=== PATIENT | female | born 1945 | race Hispanic/Latino ===

== ENCOUNTER 2018-11-10 08:09 | Observation (INO) | payer MEDICARE ==
[~2018-11-10] VITALS: Ht 154.9 cm; Wt 99.8 kg
--- OUTSIDE RECORDS SUMMARY | 2018-11-10 08:13 | XMS REPORT | Summary of Care ---
Author Author [facility] Organization [facility] Address Unknown Phone Unavailable Encounter LIANE Mason(KARLEE) [phone] Date(s): 10/16/16 - 10/17/16 [facility] [address] [place] [address]- Discharge Disposition: Home or Self Care Attending Physician: Omer Pitt MD Referring Physician: Omer Pitt MD Vital Signs 1 2 3 Most recent to oldest [Reference Range]: 154.94 cm (10/15/16 10:25 AM) Height 98.1 DegF (10/17/16 12:00 PM) 98.1 DegF (10/17/16 8:00 AM) 98.1 DegF (10/17/16 4:00 AM) Temperature Oral [96.4-99.1 DegF] 97/59 mmHg (10/17/16 12:00 PM) 111/63 mmHg (10/17/16 8:00 AM) 130/72 mmHg (10/17/16 4:00 AM) Blood Pressure [90-140/60-90 mmHg] 16 BRMIN (10/17/16 12:00 PM) 18 BRMIN (10/17/16 8:00 AM) 16 BRMIN (10/17/16 4:00 AM) Respiratory Rate [14-20 BRMIN] 71 bpm (10/17/16 12:00 PM) 79 bpm (10/17/16 8:00 AM) 85 bpm (10/17/16 4:00 AM) Peripheral Pulse Rate [60-100 bpm] 99.545 kg (10/15/16 10:25 AM) Weight 41.47 m2 (10/15/16 10:25 AM) Body Mass Index Problem List Condition Effective Dates Status Health Status Informant Diabetes Resolved mellitus(Confirmed) Hypertension(Confirm Resolved ed) Allergies, Adverse Reactions, Alerts Substance Reaction Severity Status Solu-MEDROL Active Medications acetaminophen-codeine #3 1 tab, Route: PO, Drug Form: TAB, Dosing Weight 99.545, kg, Q4H, PRN Pain Score 4-6, Start date: 10/16/16 11:25:00 A&P TECHNICIAN, Duration: 30 day, Stop date: 11/15/16 11 :24:00 A&P TECHNICIAN Notes: Do not exceed 4gm/day of acetaminophen. (Same as: Tylenol with Codeine # 3) Start Date: 10/16/16 Stop Date: 10/17/16 Status: Discontinued celecoxib 200 mg, 1 cap, Route: PO, Drug form: CAP, Daily, Dosing Weight 99.545, kg, Start date: 10/17/16 9:00:00 A&P TECHNICIAN, Duration: 30 day, Stop date: 11/15/16 9:00:00 A&P TECHNICIAN Notes: NSAID. Please check indication. Not for seizure. (Same As: CeleBREX) Start Date: 10/17/16 Stop Date: 10/17/16 Status: Discontinued celecoxib 200 mg oral capsule 200 mg=1 cap, PO, Daily, # 30 cap, 0 Refill(s) Start Date: 10/15/16 Status: Ordered Dextrose 50% Syringe 12.5 gm, 25 mL, Route: IVP, Drug Form: INJ, Dosing Weight 99.545, kg, PRN, PRN B lood Glucose Results, Start date: 10/16/16 13:15:00 A&P TECHNICIAN, Duration: 30 day, Stop date: 11/15/16 13:14:00 A&P TECHNICIAN Start Date: 10/16/16 Stop Date: 10/17/16 Status: Discontinued Dextrose 50% Syringe 25 gm, 50 mL, Route: IVP, Drug Form: INJ, Dosing Weight 99.545, kg, PRN, PRN Blo od Glucose Results, Start date: 10/16/16 13:15:00 A&P TECHNICIAN, Duration: 30 day, Stop da te: 11/15/16 13:14:00 A&P TECHNICIAN Start Date: 10/16/16 Stop Date: 10/17/16 Status: Discontinued Eliquis 5 mg oral tablet 5 mg=1 tab, PO, Daily, 0 Refill(s) Start Date: 10/15/16 Status: Ordered esomeprazole 40 mg, Route: PO, Drug form: ECCAP, Daily, Dosing Weight 99.545, kg, Start date: 10/17/16 9:00:00 A&P TECHNICIAN, Duration: 30 day, Stop date: 11/15/16 9:00:00 A&P TECHNICIAN Start Date: 10/17/16 Stop Date: 10/16/16 Status: Deleted esomeprazole 40 mg oral delayed release capsule 40 mg=1 cap, PO, Daily, # 30 cap, 0 Refill(s) Start Date: 10/15/16 Status: Ordered glipiZIDE 5 mg oral tablet 5 mg, 1 tab, Route: PO, Drug form: TAB, BID-Before Meals, Dosing Weight 99.545, kg, Start date: 10/16/16 16:30:00 A&P TECHNICIAN, Duration: 30 day, Stop date: 11/15/16 7:3 0:00 A&P TECHNICIAN Notes: (Same as: Glucotrol) 30 min before meals. Start Date: 10/16/16 Stop Date: 10/17/16 Status: Discontinued glipiZIDE 5 mg oral tablet 5 mg=1 tab, PO, BID-Before Meals, # 30 tab, 1 Refill(s) Start Date: 10/15/16 Status: Ordered glucagon 1 mg, Route: IM, Drug form: PDR/INJ, PRN, Dosing Weight 99.545, kg, PRN Blood Gl ucose Results, Start date: 10/16/16 13:15:00 A&P TECHNICIAN, Duration: 30 day, Stop date: 0 11/15/16 13:14:00 A&P TECHNICIAN Start Date: 10/16/16 Stop Date: 10/17/16 Status: Discontinued hydrochlorothiazide-triamterene 25 mg-37.5 mg oral capsule 1 cap, PO, Daily, # 30 cap, 0 Refill(s) Start Date: 10/15/16 Status: Ordered hydrochlorothiazide-triamterene 25 mg-37.5 mg oral tablet 1 tab, Route: PO, Drug Form: TAB, Dosing Weight 99.545, kg, Daily, Start date: 9:00:00 A&P TECHNICIAN, Duration: 30 day, Stop date: 11/15/16 9:00:00 A&P TECHNICIAN Notes: (triamterene-hydrochlorothiazide 37.5-25 mg TAB)(Same As: Maxzide-25) Start Date: 10/17/16 Stop Date: 10/17/16 Status: Discontinued influenza virus vaccine, inactivated 0.5 mL, Route: IM, Drug Form: SUSP, Daily, Start date: 10/16/16 16:30:00 A&P TECHNICIAN, Du ration: 1 doses or times, Stop date: 10/16/16 16:30:00 A&P TECHNICIAN Notes: (Same as: Fluzone Quadrivalent, Fluarix Quadrivalent)For 3 years of age a nd older (0.5 mL IM)Shake well before use Start Date: 10/16/16 Stop Date: 10/16/16 Status: Completed insulin aspart 3 unit, 0.03 mL, Route: SUB-Q, Drug form: SOLN, TID-Before Meals, Dosing Weight 99.545, kg, PRN Blood Glucose Results, Start date: 10/16/16 13:15:00 A&P TECHNICIAN, Durati on: 30 day, Stop date: 11/15/16 13:14:00 A&P TECHNICIAN Notes: Roll in palms of hands gently; Do not shake vigorously. (Same as: Abdelrahman Elizabeth)"single patient use only"WASTE: F/P - Black; E - Municipal Trash Bin Stable f or 28 days at room temperature.Expires in days from Date Start Date: 10/16/16 Stop Date: 10/17/16 Status: Discontinued insulin aspart 2 unit, 0.02 mL, Route: SUB-Q, Drug form: SOLN, TID-Before Meals, Dosing Weight 99.545, kg, PRN Blood Glucose Results, Start date: 10/16/16 13:15:00 A&P TECHNICIAN, Durati on: 30 , Stop date: 11/15/16 13:14:00 A&P TECHNICIAN Notes: Roll in palms of hands gently; Do not shake vigorously. (Same as: NovoKUSUM Elizabeth)"single patient use only"WASTE: F/P - Black; E - Municipal Trash Bin Stable f or 28 days at room temperature.Expires in days from Date Start Date: 10/16/16 Stop Date: 10/17/16 Status: Discontinued insulin aspart 1 unit, 0.01 mL, Route: SUB-Q, Drug form: SOLN, TID-Before Meals, Dosing Weight 99.545, kg, PRN Blood Glucose Results, Start date: 10/16/16 13:15:00 A&P TECHNICIAN, Durati on: 30 day, Stop date: 11/15/16 13:14:00 A&P TECHNICIAN Notes: Roll in palms of hands gently; Do not shake vigorously. (Same as: NovoKUSUM Elizabeth)"single patient use only"WASTE: F/P - Black; E - Municipal Trash Bin Stable f or 28 days at room temperature.Expires in days from Date Start Date: 10/16/16 Stop Date: 10/17/16 Status: Discontinued insulin aspart 4 unit, 0.04 mL, Route: SUB-Q, Drug form: SOLN, TID-Before Meals, Dosing Weight 99.545, kg, PRN Blood Glucose Results, Start date: 10/16/16 13:15:00 A&P TECHNICIAN, Durati on: 30 day, Stop date: 11/15/16 13:14:00 A&P TECHNICIAN Notes: Roll in palms of hands gently; Do not shake vigorously. (Same as: NovoKUSUM Elizabeth)"single patient use only"WASTE: F/P - Black; E - Municipal Trash Bin Stable f or 28 days at room temperature.Expires in days from Date Start Date: 10/16/16 Stop Date: 10/17/16 Status: Discontinued insulin aspart 5 unit, 0.05 mL, Route: SUB-Q, Drug form: SOLN, TID-Before Meals, Dosing Weight 99.545, kg, PRN Blood Glucose Results, Start date: 10/16/16 13:15:00 A&P TECHNICIAN, Durati on: 30 day, Stop date: 11/15/16 13:14:00 A&P TECHNICIAN Notes: Roll in palms of hands gently; Do not shake vigorously. (Same as: NovoKUSUM G)"single patient use only"WASTE: F/P - Black; E - Municipal Trash Bin Stable f or 28 days at room temperature.Expires in days from Date Start Date: 10/16/16 Stop Date: 10/17/16 Status: Discontinued isosorbide mononitrate 30 mg, 1 tab, Route: PO, Drug form: ERTAB, QAM, Dosing Weight 99.545, kg, Start date: 10/17/16 9:00:00 A&P TECHNICIAN, Duration: 30 day, Stop date: 11/15/16 9:00:00 A&P TECHNICIAN Notes: (Same as:Imdur)"Do Not Crush" Take on empty stomach/ full glass of water . Start Date: 10/17/16 Stop Date: 10/17/16 Status: Discontinued isosorbide mononitrate 30 mg oral tablet, extended release 30 mg=1 tab, PO, QAM, # 30 tab, 0 Refill(s) Start Date: 10/15/16 Status: Ordered levothyroxine Daily, 0 Refill(s) Start Date: 10/15/16 Status: Ordered Lyrica 50 mg, 1 cap, Route: PO, Drug form: CAP, TID, Dosing Weight 99.545, kg, Start da te: 10/16/16 13:00:00 A&P TECHNICIAN, Duration: 30 day, Stop date: 11/15/16 9:00:00 A&P TECHNICIAN Notes: Same as Lyrica Start Date: 10/16/16 Stop Date: 10/17/16 Status: Discontinued Lyrica 50 mg oral capsule 50 mg=1 cap, PO, TID, 0 Refill(s) Start Date: 10/15/16 Status: Ordered metFORMIN 500 mg oral tablet 500 mg=1 tab, PO, BID-Meals, # 30 tab, 0 Refill(s) Start Date: 10/15/16 Status: Ordered metoprolol 100 mg oral tablet, extended release 100 mg=1 tab, PO, Daily, # 30 tab, 0 Refill(s) Start Date: 10/15/16 Status: Ordered minocycline 100 mg, 2 cap, Route: PO, Drug form: CAP, Q12H, Dosing Weight 99.545, kg, Start date: 10/17/16 9:00:00 A&P TECHNICIAN, Duration: 7 day, Stop date: 10/23/16 21:00:00 A&P TECHNICIAN Notes: (Same as:Minocin) No milk/antacids/iron. Start Date: 10/17/16 Stop Date: 10/17/16 Status: Discontinued Multaq 400 mg oral tablet 400 mg=1 tab, PO, BID, # 60 tab, 0 Refill(s) Start Date: 10/15/16 Status: Ordered Protonix 40 mg, 1 tab, Route: PO, Drug form: ECTAB, Before Breakfast, Start date: 6 7:30:00 A&P TECHNICIAN, Duration: 30 day, Stop date: 11/15/16 7:30:00 A&P TECHNICIAN Notes: Tablet should not be chewed or crushed.(Same as: Protonix) Start Date: 10/17/16 Stop Date: 10/17/16 Status: Discontinued Toprol-XL 100 mg oral tablet, extended release 100 mg, 1 tab, Route: PO, Drug form: ERTAB, Daily, Start date: 10/17/16 9:00:00 A&P TECHNICIAN, Duration: 30 day, Stop date: 11/15/16 9:00:00 A&P TECHNICIAN Notes: (Same as: Toprol XL) May split tab, but do not crush. Start Date: 10/17/16 Stop Date: 10/17/16 Status: Discontinued tramadol 50 mg oral tablet 50 mg, 1 tab, Route: PO, Drug form: TAB, Q6H, Dosing Weight 99.545, kg, PRN Pain Score 7-10, Start date: 10/16/16 11:26:00 A&P TECHNICIAN, Duration: 30 day, Stop date: 11:25:00 A&P TECHNICIAN Notes: Not to exceed 400mg/day. (Same As: Ultram) Start Date: 10/16/16 Stop Date: 10/17/16 Status: Discontinued tramadol 50 mg oral tablet 50 mg=1 tab, PO, Q6H, PRN Pain, # 40 tab, 0 Refill(s) Start Date: 10/15/16 Stop Date: 10/25/16 Status: Ordered vancomycin + sodium chloride 0.9% INJ 250 mL 1,000 mg, Route: IVPB, ONCE, Dosing Weight 99.545, kg, Time Critical Medication, Start date: 10/16/16 11:25:00 A&P TECHNICIAN, Stop date: 10/16/16 11:25:00 A&P TECHNICIAN Notes: TIME CRITICAL MEDICATION(Same As: Vancocin)Infusion rate< 1000 mg: infuse over 1 [id number] - 1500 mg: infuse over 1.5 [id number] - 2000 mg: infuse over 2 hours> 2001 mg: infuse over 2.5 hours MEDICATION WASTE Product Size: 1000 mgProduct Wasted: ___ mg Start Date: 10/16/16 Stop Date: 10/16/16 Status: Completed Results ELECTROLYTES Most recent to 1 oldest [Reference Range]: Sodium Lvl [135-145 143 mEq/L mEq/L] (10/15/16 10:55 AM) Potassium Lvl 4.3 mEq/L [3.5-5.1 mEq/L] (10/15/16 10:55 AM) Chloride Lvl [95-109 111 mEq/L mEq/L] *HI* (10/15/16 10:55 AM) CO2 [24-32 mEq/L] 25 mEq/L (10/15/16 10:55 AM) AGAP [10.0-20.0 11.3 mEq/L mEq/L] (10/15/16 10:55 AM) CHEM PANEL Most recent to 1 oldest [Reference Range]: Creatinine Lvl 1.10 mg/dL [0.50-1.40 mg/dL] (10/15/16 10:55 AM) eGFR 50 mL/min/1.73m2 1 *NA* (10/15/16 10:55 AM) BUN [7-22 mg/dL] 24 mg/dL *HI* (10/15/16 10:55 AM) Glucose Lvl [70-99 162 mg/dL mg/dL] *HI* (10/15/16 10:55 AM) Calcium Lvl 9.2 mg/dL [8.5-10.5 mg/dL] (10/15/16 10:55 AM) 1Result Comment: The eGFR is calculated using the CKD-EPI formula. In most young, healthy individuals the eGFR will be >90 mL/min/1.73m2. The eGFR declines with age. An eGFR of 60-89 may be normal in some populations, particularly the elderly, for whom the CKD-EPI formula has not been extensively validated. Use of the eGFR is not recommended in the following populations: Individuals with unstable creatinine concentrations, including patients and those with serious co-morbid conditions. Patients with extremes in muscle mass or diet. The data above are obtained from the National Kidney Disease Education Program ( NKDEP) which additionally recommends that when the eGFR is used in patients with extremes of body mass index for purposes of drug dosing, the eGFR should be mul tiplied by the estimated BMI. HEMATOLOGY Most recent to 1 oldest [Reference Range]: WBC [3.7-10.4 K/CMM] 5.8 K/CMM (10/15/16 10:55 AM) RBC [4.20-5.40 4.49 M/CMM M/CMM] (10/15/16 10:55 AM) Hgb [12.0-16.0 g/dL] 14.0 g/dL (10/15/16 10:55 AM) Hct [36.0-48.0 %] 42.7 % (10/15/16 10:55 AM) MCV [80.0-98.0 fL] 95.1 fL (10/15/16 10:55 AM) MCH [27.0-31.0 pg] 31.1 pg *HI* (10/15/16 10:55 AM) MCHC [32.0-36.0 32.7 g/dL g/dL] (10/15/16 10:55 AM) RDW [11.5-14.5 %] 14.0 % (10/15/16 10:55 AM) Platelet [133-450 135 K/CMM K/CMM] (10/15/16 10:55 AM) MPV [7.4-10.4 fL] 9.9 fL (10/15/16 10:55 AM) Segs [45.0-75.0 %] 62.5 % (10/15/16 10:55 AM) Lymphocytes 22.7 % [20.0-40.0 %] (10/15/16 10:55 AM) Monocytes [2.0-12.0 10.7 % %] (10/15/16 10:55 AM) Eosinophils [0.0-4.0 3.4 % %] (10/15/16 10:55 AM) Basophils [0.0-1.0 0.7 % %] (10/15/16 10:55 AM) Segs-Bands # 3.6 K/CMM [1.5-8.1 K/CMM] (10/15/16 10:55 AM) Lymphocytes # 1.3 K/CMM [1.0-5.5 K/CMM] (10/15/16 10:55 AM) Monocytes # [0.0-0.8 0.6 K/CMM K/CMM] (10/15/16 10:55 AM) Eosinophils # 0.2 K/CMM [0.0-0.5 K/CMM] (10/15/16 10:55 AM) PT [12.0-14.7 16.1 seconds seconds] *HI* (10/15/16 10:55 AM) INR [0.85-1.17] 1.26 *HI* (10/15/16 10:55 AM) PTT [22.9-35.8 32.6 seconds seconds] (10/15/16 10:55 AM) Immunizations Given and Recorded Vaccine Date Status Refusal Reason influenza virus vaccine, inactivated 10/16/16 Given Procedures Procedure Date Related Diagnosis Body Site Appendectomy Cholecystectomy Hysterectomy Lumbar spinal fusion Social History Social History Type Response Smoking Status Never smoker; Exposure to Tobacco Smoke None; Cigarette Smoking Last 365 Days No; Reg Smoking Cessation Counseling No Assessment and Plan No data available for this section
--- OUTSIDE RECORDS SUMMARY | 2018-11-10 08:13 | XMS REPORT ---
Author Author John Bazzi Organization [employer] Address Unknown Phone Unavailable Care Team Providers Care Commercial Illustrator Name Role Phone John Bazzi CP Unavailable Encounters Encounter Location Date Refill [facility] May 03, 2014 Refills [facility] May 03, 2014 Unknown [facility] May 03, 2014 F/U FOR ECHO [facility] February 22, 2014 [facility] February 22, 2014 Refills [facility] May 01, 2014 Medications Medication Code System Code Instructions Start Date End Date Status Dosage Triamterene [facility] [address]-17 37.5 MG Orally Once a day Active 1 capsule Social History Social History Element Qualifiers Date Reported Diet: . Are you on a special diet? No February 22, 2014 Caffeine: . Do you drink caffeine? Yes, How much a day? 1 cup, What type? Soda diet coke every other day February 22, 2014 Exercise: . Do you exercise? No February 22, 2014 Smoking: . Are you a: Former smoker February 22, 2014 Alcohol: . Do you drink alcohol? No February 22, 2014 Summary Purpose [employer] Submission
--- OUTSIDE RECORDS SUMMARY | 2018-11-10 08:13 | XMS REPORT ---
Author Author John Bazzi Organization [employer] Address Unknown Phone Unavailable Care Team Providers Care Lead Cargo Mover Name Role Phone John Bazzi CP Unavailable Encounters Encounter Location Date Refill [facility] May 03, 2014 Refills [facility] May 03, 2014 Unknown [facility] May 03, 2014 F/U FOR ECHO [facility] February 22, 2014 [facility] February 22, 2014 Refills [facility] May 01, 2014 Medications Medication Code System Code Instructions Start Date End Date Status Dosage Triamterene [facility] [address]-00 37.5 MG Orally Once a day Active [...]
--- OUTSIDE RECORDS SUMMARY | 2018-11-10 08:13 | XMS REPORT ---
Author Author John Bazzi Organization [employer] Address Unknown Phone Unavailable Care Team Providers Care Test Carrier Name Role Phone John Bazzi CP Unavailable [...] Start Date End Date Status Dosage Triamterene [facility] [address]-88 37.5 MG Orally Once a day Active [...]
--- OUTSIDE RECORDS SUMMARY | 2018-11-10 08:13 | XMS REPORT ---
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 Active Assessment Dizziness and giddiness 780.4 Active Assessment Pain in soft tissues of limb 729.5 Active Medications Medication Code System Code Instructions Start Date End Date Status Dosage Metoprolol MULTUM 79881 100 MG Orally Active as directed Levothyroxine Sodium [facility] [address]-71 75 MCG Orally Once a day Active 1 tablet on an empty stomach in the morning Vitamin D (Ergocalciferol) [facility] [address]-65 15105 UNIT Orally Active 1 capsule Isosorbide Mononitrate CR [facility] [address]-06 30 MG Orally Once a day Active 1 tablet Metformin Unknown 0 500 mg Once a day Active as direct Triamterene [facility] [address]-05 37.5 MG Orally Once a day Active 1 capsule Xarelto [facility] [address]-41 20 MG Orally Once a day Active 1 tablet with food Amiodarone Unknown 0 200 mg orally twice a day Active one tab GlipiZIDE [facility] [address]-13 5 MG Orally Once a day Active 1 tablet Social History Social History Element Qualifiers Date [...] you drink alcohol? No February 22, 2014 Family history Qualifier Description Comment Date Reported Mother HTN February 22, 2014 Children son has sleep apnia February 22, 2014 Father stroke and HTN February 22, 2014 Siblings one sister has memory problems February 22, 2014 Vital Signs Date/Time: February 22, 2014 Weight 233 lbs Cardiac Monitoring Heart Rate 80 Beats per Minute Blood Pressure Diastolic 72 mm Hg Blood Pressure Systolic 128 mm Hg Summary Purpose [employer] Submission
--- OUTSIDE RECORDS SUMMARY | 2018-11-10 08:13 | XMS REPORT ---
Author Author John Bazzi Organization [employer] Address Unknown Phone Unavailable Care Team Providers Care Track Service Worker Name Role Phone John Bazzi CP Unavailable [...] Start Date End Date Status Dosage Triamterene [facility] [address]-69 37.5 MG Orally Once a day Active [...]
--- OUTSIDE RECORDS SUMMARY | 2018-11-10 08:13 | XMS REPORT ---
Author Author John Bazzi Organization [employer] Address Unknown Phone Unavailable Care Team Providers Care Delivery Driver/Supervisor Name Role Phone John Bazzi CP Unavailable Encounters Encounter Location Date Refill [facility] May 03, 2014 Refills [facility] May 03, 2014 Unknown [facility] May 03, 2014 REFILL [facility] Jun 13, 2014 F/U FOR [facility] February 22, 2014 ECHO [facility] February 22, 2014 Refills [facility] May 01, 2014 medicatins [facility] Jun 13, 2014 Medications Medication Code System Code Instructions Start Date End Date Status Dosage Metoprolol Succinate Unknown 0 100 MG Orally ONCE A DAY Jun 13, 2014 Dec 10, 2014 Active 1 TABLET Amiodarone Unknown 0 200 mg orally once a day Active 1/2 tab Triamterene-HCTZ [facility] [address]-93 37.5-25 MG Orally Once a day Jun 13, 2014 Active 1 tablet in the morning Isosorbide Mononitrate CR [facility] [address]-97 30 MG Orally Once a day Active 1 tablet Social History Social History Element Qualifiers Date Reported Diet: . Are you on a special diet? Yes, What type? diabetes Jun 13, 2014 Caffeine: . Do you drink caffeine? Yes, How much a day? 1 cup, What type? Coffee diet coke every other day Jun 13, 2014 Exercise: . Do you exercise? Yes, How often? Daily, What type of exercise? Walking Jun 13, 2014 Smoking: . Are you a: Former smoker Jun 13, 2014 Alcohol: . Do you drink alcohol? No Jun 13, 2014 Summary Purpose [employer] Submission
--- OUTSIDE RECORDS SUMMARY | 2018-11-10 08:13 | XMS REPORT ---
Author Author John Bazzi Organization [employer] Address Unknown Phone Unavailable Care Team Providers Care Balance Sheet Analyst Name Role Phone John Bazzi CP Unavailable Encounters Encounter Location Date F/U FOR ECHO [facility] February 22, 2014 ECHO [facility] February 22, 2014 Problems Problem Type Condition ICD-9 Code Onset Dates Condition Status Assessment Atrial fibrillation 427.31 Active Assessment Essential hypertension, benign 401.1 Active Assessment Congestive heart failure, unspecified 428.0 Active Assessment Dizziness and giddiness 780.4 Active Assessment Pain in soft tissues of limb 729.5 Active Social History Social History Element Qualifiers Date Reported Diet: . Are you on a special diet? Yes Nov 16, 2013 Caffeine: . Do you drink caffeine? Yes, How much a day? 1 cup or more, What type? Coffee coffee, tea and sodas Nov 16, 2013 Exercise: . Do you exercise? No Nov 16, 2013 Smoking: . Are you a: Former smoker Nov 16, 2013 Alcohol: . Do you drink alcohol? No Nov 16, 2013 Vital Signs Date/Time: Nov 16, 2013 Weight 235 lbs Cardiac Monitoring Heart Rate 72 Beats per Minute Blood Pressure Diastolic 80 mm Hg Blood Pressure Systolic 130 mm Hg Summary Purpose [employer] Submission
--- OUTSIDE RECORDS SUMMARY | 2018-11-10 08:13 | XMS REPORT | Continuity of Care Document ---
Author Author Where [facility] Interface Address Unknown Phone Unavailable Problems Problem Status Onset Date Classification Date Reported Comments Source UNK Active 10/14/2016 [facility] DIZZINESS Active 12/01/2012 [facility] Atrial fibrillation Active Diagnosis 06/22/2014 [facility] Essential hypertension, benign Active Diagnosis 06/22/2014 [facility] Congestive heart failure, unspecified Active Diagnosis 06/22/2014 [facility] Dizziness and giddiness Active Diagnosis 06/22/2014 [facility] Pain in soft tissues of limb Active Diagnosis 06/22/2014 [facility] 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 Inactive 10/17/2016 [facility] 24 HR Metoprolol Tartrate 100 MG Extended Release Tablet [Toprol] 100 mg, 1 tab, Route: PO, Drug form: ERTAB, Daily, Start date: 10/17/16 9:00:00 PASTRY COOK APPRENTICE, Duration: 30 day, Stop date: 11/15/16 9:00:00 CSTNotes: (Same as: Toprol XL) May split tab, but do not crush. Inactive 10/17/2016 [facility] Isosorbide 30 mg, 1 tab, Route: PO, Drug form: ERTAB, QAM, Dosing Weight 99.545, kg, Start date: 10/17/16 9:00:00 PASTRY COOK APPRENTICE, Duration: 30 day, Stop date: 11/15/16 9:00:00 CSTNotes: (Same as:Imdur) "Do Not Crush" Take on empty stomach/ full glass of water. Inactive 10/17/2016 [facility] Hydrochlorothiazide 25 MG / Triamterene 37.5 MG Oral Capsule 1 tab, Route: PO, Drug Form: TAB, Dosing Weight 99.545, kg, Daily, Start date: 10/17/16 9:00:00 PASTRY COOK APPRENTICE, Duration: 30 day, Stop date: 11/15/16 9:00:00 CSTNotes: (triamterene-hydrochlorothiazide 37.5-25 mg TAB) (Same As: Maxzide-25) Inactive 10/17/2016 [facility] Esomeprazole 40 mg, Route: PO, Drug form: ECCAP, Daily, Dosing Weight 99.545, kg, Start date: 10/17/16 9:00:00 PASTRY COOK APPRENTICE, Duration: 30 day, Stop date: 11/15/16 9:00:00 PASTRY COOK APPRENTICE No Longer Active 10/17/2016 [facility] celecoxib 200 mg, 1 cap, Route: PO, Drug form: CAP, Daily, Dosing Weight 99.545, kg, Start date: 10/17/16 9:00:00 PASTRY COOK APPRENTICE, Duration: 30 day, Stop date: 11/15/16 9:00:00 CSTNotes: NSAID. Please check indication. Not for seizure. (Same As: CeleBREX) Inactive 10/17/2016 [facility] Protonix 40 mg, 1 tab, Route: PO, Drug form: ECTAB, Before Breakfast, Start date: 10/17/16 7:30:00 PASTRY COOK APPRENTICE, Duration: 30 day, Stop date: 11/15/16 7:30:00 CSTNotes: Tablet should not be chewed or crushed. (Same as: Protonix) Inactive 10/17/2016 [facility] influenza virus vaccine, inactivated 0.5 mL, Route: IM, Drug Form: SUSP, Daily, Start date: 10/16/16 16:30:00 PASTRY COOK APPRENTICE, Duration: 1 doses or times, Stop date: 10/16/16 16:30:00 CSTNotes: (Same as: Fluzone Quadrivalent, Fluarix Quadrivalent) For 3 years of age and older (0.5 mL IM) Shake well before use Inactive 10/16/2016 [facility] Glipizide 5 MG Oral Tablet 5 mg, 1 tab, Route: PO, Drug form: TAB, BID-Before Meals, Dosing Weight 99.545, kg, Start date: 10/16/16 16:30:00 PASTRY COOK APPRENTICE, Duration: 30 day, Stop date: 11/15/16 7:30:00 CSTNotes: (Same as: Glucotrol) 30 min before meals. No Longer Active 10/16/2016 [facility] Glucagon 1 mg, Route: IM, Drug form: PDR/INJ, PRN, Dosing Weight 99.545, kg, PRN Blood Glucose Results, Start date: 10/16/16 13:15:00 PASTRY COOK APPRENTICE, Duration: 30 day, Stop date: 11/15/16 13:14:00 PASTRY COOK APPRENTICE No Longer Active 10/16/2016 [facility] Dextrose 50% Syringe 12.5 gm, 25 mL, Route: IVP, Drug Form: INJ, Dosing Weight 99.545, kg, PRN, PRN Blood Glucose Results, Start date: 10/16/16 13:15:00 PASTRY COOK APPRENTICE, Duration: 30 day, Stop date: 11/15/16 13:14:00 PASTRY COOK APPRENTICE No Longer Active 10/16/2016 [facility] Insulin, Aspart, Human 3 unit, 0.03 mL, Route: SUB-Q, Drug form: SOLN, TID-Before Meals, Dosing Weight 99.545, kg, PRN Blood Glucose Results, Start date: 10/16/16 13:15:00 PASTRY COOK APPRENTICE, Duration: 30 day, Stop date: 11/15/16 13:14:00 CSTNotes: Roll in palms of hands gently; Do not shake vigorously. (Same as: NovoLOG) "single patient use only" WASTE: F/P - Black; E - [employer] Trash Bin Stable for 28 days at room temperature. Expires in days from Date No Longer Active 10/16/2016 [facility] Lyrica 50 mg, 1 cap, Route: PO, Drug form: CAP, TID, Dosing Weight 99.545, kg, Start date: 10/16/16 13:00:00 PASTRY COOK APPRENTICE, Duration: 30 day, Stop date: 11/15/16 9:00:00 CSTNotes: Same as Lyrica No Longer Active 10/16/2016 [facility] tramadol hydrochloride 50 MG Oral Tablet 50 mg, 1 tab, Route: PO, Drug form: TAB, Q6H, Dosing Weight 99.545, kg, PRN Pain Score 7-10, Start date: 10/16/16 11:26:00 PASTRY COOK APPRENTICE, Duration: 30 day, Stop date: 11/15/16 11:25:00 CSTNotes: Not to exceed 400mg/day. (Same As: Ultram) No Longer Active 10/16/2016 [facility] acetaminophen-codeine #3 1 tab, Route: PO, Drug Form: TAB, Dosing Weight 99.545, kg, Q4H, PRN Pain Score 4-6, Start date: 10/16/16 11:25:00 PASTRY COOK APPRENTICE, Duration: 30 day, Stop date: 11/15/16 11:24:00 CSTNotes: Do not exceed 4gm/day of acetaminophen. (Same as: Tylenol with Codeine # 3) No Longer Active 10/16/2016 [facility] Vancomycin 1,000 mg, Route: IVPB, ONCE, Dosing Weight 99.545, kg, Time Critical Medication, Start date: 10/16/16 11:25:00 PASTRY COOK APPRENTICE, Stop date: 10/16/16 11:25:00 CSTNotes: TIME CRITICAL MEDICATION (Same As: Vancocin) I nfusion rate 2001 mg: infuse over 2.5 hours MEDICATION WASTE Product Size: 1000 mg Product Wasted: ___ mg Inactive 10/16/2016 [facility] Glipizide 5 MG Oral Tablet 5 mg=1 tab, PO, BID-Before Meals, # 30 tab, 1 Refill(s) Active 10/15/2016 [facility] apixaban 5 MG Oral Tablet [Eliquis] 5 mg=1 tab, PO, Daily, 0 Refill(s) Active 10/15/2016 [facility] metoprolol 100 mg oral tablet, extended release 100 mg=1 tab, PO, Daily, # 30 tab, 0 Refill(s) Active 10/15/2016 [facility] pregabalin 50 MG Oral Capsule [Lyrica] 50 mg=1 cap, PO, TID, 0 Refill(s) Active 10/15/2016 [facility] tramadol hydrochloride 50 MG Oral Tablet 50 mg=1 tab, PO, Q6H, PRN Pain, # 40 tab, 0 Refill(s) Active 10/15/2016 [facility] dronedarone 400 MG Oral Tablet [Multaq] 400 mg=1 tab, PO, BID, # 60 tab, 0 Refill(s) Active 10/15/2016 [facility] Esomeprazole 40 MG Enteric Coated Capsule 40 mg=1 cap, PO, Daily, # 30 cap, 0 Refill(s) Active 10/15/2016 [facility] Metformin hydrochloride 500 MG Oral Tablet 500 mg=1 tab, PO, BID-Meals, # 30 tab, 0 Refill(s) Active 10/15/2016 [facility] celecoxib 200 mg oral capsule 200 mg=1 cap, PO, Daily, # 30 cap, 0 Refill(s) Active 10/15/2016 [facility] isosorbide mononitrate 30 mg oral tablet, extended release 30 mg=1 tab, PO, QAM, # 30 tab, 0 Refill(s) Active 10/15/2016 [facility] Hydrochlorothiazide 25 MG / Triamterene 37.5 MG Oral Capsule 1 cap, PO, Daily, # 30 cap, 0 Refill(s) Active 10/15/2016 [facility] Thyroxine Daily, 0 Refill(s) Active 10/15/2016 [facility] Metoprolol Succinate 1 TABLET Orally Active 100 MG Orally ONCE A DAY [facility] 06/13/2014 [facility] Triamterene-HCTZ 1 tablet in the morning Orally Active 37.5-25 MG Orally Once a day [facility] 06/13/2014 [facility] Eliquis as directed Orally Active 5 MG Orally twice a day. 06/13/2014 [facility] Triamterene 1 capsule Orally Active 37.5 MG Orally Once a day [facility] Metoprolol as directed Orally Active 100 MG Orally [facility] Levothyroxine Sodium 1 tablet on an empty stomach in the morning Orally Active 75 MCG Orally Once a day [facility] Vitamin D (Ergocalciferol) 1 capsule Orally Active 12361 UNIT Orally [facility] Isosorbide Mononitrate CR 1 tablet Orally Active 30 MG Orally Once a day [facility] Metformin as direct NA Active 500 mg Once a day [facility] Xarelto 1 tablet with food Orally Active 20 MG Orally Once a day [facility] Amiodarone 1/2 tab orally Active 200 mg orally once a day [facility] GlipiZIDE 1 tablet Orally Active 5 MG Orally Once a day [facility] Warfarin Sodium 1 tablet Orally Active 5 MG Orally Two times a Week [facility] Ciprofloxacin 500 mg BID 7d one tab orally Active 500 mg orally every 12 hours [facility] Metoprolol as directed Orally Active 100 MG Orally [facility] Allergies, Adverse Reactions, Alerts Substance Category Reaction Severity Reaction type Status Date Reported Comments Source N.K.D.A. Adverse Reaction Info Not Available Adverse Reaction Active 06/13/2014 [facility] Solu-MEDROL Assertion Drug allergy Active [facility] Immunizations Immunization Date Given Site Status Last Updated Comments Source influenza virus vaccine, inactivated 10/16/2016 Right deltoid completed [facility] Results Order Name Results Value Reference Range Date Interpretation Comments Source Chest 2 views DX Chest 2 views DX Patient Name: AMAURY CONTE : 1945; Age: 71 years Female MR: [id number] Study: Chest 2 views DX Order Time: 10/17/2016 3:00 AM PASTRY COOK APPRENTICE CLINICAL INDICATION: Line Placement ADDITIONAL HISTORY: None COMPARISON: Chest radiograph on 10/16/2016 FINDINGS: Lines: Stable position of the left chest pacemaker. Lungs: Hyperinflated lungs. Linear scarring and/or atelectasis within the left midlung. No effusion or pneumothorax. Mediastinum: The cardiac silhouette is mildly enlarged. Midline trachea. Bones and soft tissues: Unremarkable. IMPRESSION: No acute cardiopulmonary abnormalities. SL: [id number] 10/17/2016 - - Read by: Oleg Arora MD Dictated Date/time: 10/17/16 15:00 Electronically Signed by: Oleg Arora MD 10/17/16 15:01 FINAL REPORT [facility] Chest 1view DX Chest 1view DX Patient Name: AMAURY CONTE : 1945; Age: 71 years y/o Female MR: [id number] Study: Chest 1view DX 10/16/2016 11:25 AM PASTRY COOK APPRENTICE Ordering Physician: MD Omer Zelaya MD Clinical Indication: Line Placement; Status post PPM/ICD Implantation Comparison: 09/03/2009. 1 view chest Implanted pacemaker generator left chest wall, with single lead extending to the right ventricular region. No pneumothorax or pleural effusion is appreciated. The lungs are clear. Cardiomegaly, stable from previous. No overt congestive heart failure or pulmonary edema appreciated. IMPRESSION: Status post pacemaker implant. No pneumothorax seen. No other new/acute findings. SL: [id number] 10/16/2016 - - Read by: Charles Chaves MD Dictated Date/time: 10/16/16 14:03 Electronically Signed by: Charles Chaves MD 10/16/16 14:04 FINAL REPORT [facility] CHEM PANEL eGFR 50 mL/min/1.73m2 10/15/2016 Result Comment: The eGFR is calculated using the [...] from the National Kidney Disease Education Program (NKDEP) which additionally recommends that when the eGFR is used in patients with extremes of body mass index for purposes of drug dosing, the eGFR should be multiplied by the estimated BMI. [facility] CHEM PANEL Potassium Lvl 4.3 meq/L 3.5 - 5.1 10/15/2016 [facility] CHEM PANEL Chloride Lvl 111 meq/L 95 - 109 10/15/2016 [facility] CHEM PANEL CO2 25 meq/L 24 - 32 10/15/2016 [facility] CHEM PANEL Calcium Lvl 9.2 mg/dL 8.5 - 10.5 10/15/2016 [facility] CHEM PANEL Creatinine Lvl 1.10 mg/dL 0.50 - 1.40 10/15/2016 [facility] CHEM PANEL BUN 24 mg/dL 7 - 22 10/15/2016 [facility] CHEM PANEL Sodium Lvl 143 meq/L 135 - 145 10/15/2016 [facility] CHEM PANEL Glucose Lvl 162 mg/dL 70 - 99 10/15/2016 [facility] CHEM PANEL AGAP 11.3 meq/L 10.0 - 20.0 10/15/2016 [facility] HEMATOLOGY Lymphocytes # 1.3 K/CMM 1.0 - 5.5 10/15/2016 [facility] HEMATOLOGY Segs-Bands # 3.6 K/CMM 1.5 - 8.1 10/15/2016 [facility] HEMATOLOGY Monocytes # 0.6 K/CMM 0.0 - 0.8 10/15/2016 [facility] HEMATOLOGY Basophils 0.7 % 0.0 - 1.0 10/15/2016 [facility] HEMATOLOGY Eosinophils # 0.2 K/CMM 0.0 - 0.5 10/15/2016 [facility] HEMATOLOGY Segs 62.5 % 45.0 - 75.0 10/15/2016 [facility] HEMATOLOGY Lymphocytes 22.7 % 20.0 - 40.0 10/15/2016 [facility] HEMATOLOGY Eosinophils 3.4 % 0.0 - 4.0 10/15/2016 [facility] HEMATOLOGY Monocytes 10.7 % 2.0 - 12.0 10/15/2016 [facility] HEMATOLOGY PTT 32.6 s 22.9 - 35.8 10/15/2016 [facility] HEMATOLOGY INR 1.26 0.85 - 1.17 10/15/2016 [facility] HEMATOLOGY PT 16.1 s 12.0 - 14.7 10/15/2016 [facility] HEMATOLOGY MCH 31.1 pg 27.0 - 31.0 10/15/2016 [facility] HEMATOLOGY MCV 95.1 fL 80.0 - 98.0 10/15/2016 [facility] HEMATOLOGY MCHC 32.7 g/dL 32.0 - 36.0 10/15/2016 [facility] HEMATOLOGY Hct 42.7 % 36.0 - 48.0 10/15/2016 [facility] HEMATOLOGY MPV 9.9 fL 7.4 - 10.4 10/15/2016 [facility] HEMATOLOGY Platelet 135 K/CMM 133 - 450 10/15/2016 [facility] HEMATOLOGY RDW 14.0 % 11.5 - 14.5 10/15/2016 [facility] HEMATOLOGY RBC 4.49 M/CMM 4.20 - 5.40 10/15/2016 [facility] HEMATOLOGY WBC 5.8 K/CMM 3.7 - 10.4 10/15/2016 [facility] HEMATOLOGY Hgb 14.0 g/dL 12.0 - 16.0 10/15/2016 [facility] Vital Signs Vital Sign Value Date Comments Source Respitory Rate 16 10/17/2016 [facility] Systolic (mm Hg) 97 10/17/2016 [facility] Diastolic (mm Hg) 59 10/17/2016 [facility] Heart Rate 71 10/17/2016 [facility] Temperature Oral (F) 98.1 F 10/17/2016 [facility] Systolic (mm Hg) 111 10/17/2016 [facility] Diastolic (mm Hg) 63 10/17/2016 [facility] Respitory Rate 18 10/17/2016 [facility] Temperature Oral (F) 98.1 F 10/17/2016 [facility] Heart Rate 79 10/17/2016 [facility] Respitory Rate 16 10/17/2016 [facility] Systolic (mm Hg) 130 10/17/2016 [facility] Diastolic (mm Hg) 72 10/17/2016 [facility] Heart Rate 85 10/17/2016 [facility] Temperature Oral (F) 98.1 F 10/17/2016 [facility] BMI Calculated 41.47 10/15/2016 [facility] Height 154.94 cm 10/15/2016 [facility] Weight 99.545 10/15/2016 [facility] Weight 232 06/13/2014 [facility] Heart Rate 84 06/13/2014 [facility] Diastolic (mm Hg) 62 06/13/2014 [facility] Systolic (mm Hg) 120 06/13/2014 [facility] Weight 233 02/22/2014 [facility] Heart Rate 80 02/22/2014 [facility] Diastolic (mm Hg) 72 02/22/2014 [facility] Systolic (mm Hg) 128 02/22/2014 [facility] Weight 235 11/16/2013 [facility] Heart Rate 72 11/16/2013 [facility] Diastolic (mm Hg) 80 11/16/2013 [facility] Systolic (mm Hg) 130 11/16/2013 [facility] Encounters Location Location Details Encounter Type Encounter Number Reason For Visit Attending Provider ADM Date DC Date Status Source [facility] Emergency [id number] THELMA SWAPNA 12/01/2012 12/01/2012 Active [facility] E[facility] [id number] 02/22/2014 02/22/2014 [facility] ECHO [id number] 02/22/2014 02/22/2014 [facility] ECHO [id number] 02/22/2014 02/22/2014 [facility] ECHO [id number] 02/22/2014 02/22/2014 [facility] E[facility] [id number] 02/22/2014 02/22/2014 [facility] ECHO [id number] 02/22/2014 02/22/2014 [facility] ECHO [id number] 02/22/2014 02/22/2014 [facility] ECHO [id number] 02/22/2014 02/22/2014 [facility] MCMILLAN PA F/U FOR ECHO [id number] 02/22/2014 02/22/2014 [facility] MCMILLAN PA F/U FOR ECHO [id number] 02/22/2014 02/22/2014 [facility] MCMILLAN PA F/U FOR ECHO [id number] 02/22/2014 02/22/2014 [facility] MCMILLAN PA F/U FOR ECHO [id number] 02/22/2014 02/22/2014 [facility] MCMILLAN PA F/U FOR ECHO [id number] 02/22/2014 02/22/2014 [facility] Marynhan MCMILLAN PA F/U FOR ECHO [id number] 02/22/2014 02/22/2014 [facility] MCMILLAN PA F/U FOR ECHO [id number] 02/22/2014 02/22/2014 [facility] F/U FOR ECHO [id number] 02/22/2014 02/22/2014 [facility] M[facility]ILLAN [facility] Refills [id number] 05/01/2014 05/01/2014 [facility] M[facility]ILL[facility] PA Refills [id number] 05/01/2014 05/01/2014 [facility] M[facility]ILL[facility] Refills [id number] 05/01/2014 05/01/2014 [facility] M[facility] Refills [id number] 05/01/2014 05/01/2014 [facility] M[facility] Refills [id number] 05/01/2014 05/01/2014 [facility] M[facility] Refills [id number] 05/01/2014 05/01/2014 [facility] M[facility]ILLAN [facility] Refill [id number] 05/03/2014 05/03/2014 [facility] MCMILLAN PA Refill [id number] 05/03/2014 05/03/2014 [facility] MCMILL[facility] PA Refill [id number] 05/03/2014 05/03/2014 [facility] M[facility]ILL[facility] PA Refill [id number] 05/03/2014 05/03/2014 [facility] M[facility] Refill [id number] 05/03/2014 05/03/2014 [facility] M[facility]ILL[facility] Refill [id number] 05/03/2014 05/03/2014 [facility] M[facility] Refills [id number] 05/03/2014 05/03/2014 [facility] M[facility] Refills [id number] 05/03/2014 05/03/2014 [facility] Refills [id number] 05/03/2014 05/03/2014 [facility] M[facility] Refills [id number] 05/03/2014 05/03/2014 [facility] M[facility] Refills [id number] 05/03/2014 05/03/2014 [facility] Refills [id number] 05/03/2014 05/03/2014 [facility] Unknown [id number] 05/03/2014 05/03/2014 [facility] Unknown [id number] 05/03/2014 05/03/2014 [facility] JAC[facility] Unknown [id number] 05/03/2014 05/03/2014 [facility] Unknown [id number] 05/03/2014 05/03/2014 [facility] Unknown [id number] 05/03/2014 05/03/2014 [facility] Unknown [id number] 05/03/2014 05/03/2014 [facility] JAC[facility]BSON medicatins [id number] 06/13/2014 06/13/2014 [facility] J[facility] medicatins [id number] 06/13/2014 06/13/2014 [facility] REFILL [id number] 06/13/2014 06/13/2014 [facility] REFILL [id number] 06/13/2014 06/13/2014 [facility] Bed[facility] Outpatient [id number] Omer Zelaya 10/16/2016 10/17/2016 [facility] Procedure Code Date Perfomer Comments Source Appendectomy [id number] [facility] Cholecystectomy [id number] [facility] Hysterectomy [id number] [facility] Lumbar spinal fusion [id number] [facility]
--- OUTSIDE RECORDS SUMMARY | 2018-11-10 08:13 | XMS REPORT ---
Author Author John Bazzi Organization [employer] Address Unknown Phone Unavailable Care Team Providers Care Color Technician Name Role Phone John Bazzi CP Unavailable Allergies, Adverse Reactions, Alerts Substance Reaction Event Type N.K.D.A. Info Not Available Non Drug Allergy Encounters Encounter Location Date Refill [facility] May 03, 2014 Refills [facility] May 03, 2014 Unknown [facility] May 03, 2014 REFILL [facility] Jun 13, 2014 F/U FOR ECHO [facility] February 22, 2014 ECHO [facility] February 22, 2014 Refills [facility] May 01, 2014 medicatins [facility] Jun 13, 2014 Problems Problem Type Condition ICD-9 Code [...] Instructions Start Date End Date Status Dosage Xarelto [facility] [address]-02 20 MG Orally Once a day Active 1 tablet with food GlipiZIDE [facility] [address]-41 5 MG Orally Once a day Active 1 tablet Amiodarone Unknown 0 200 mg orally once a day Active 1/2 tab Warfarin Sodium [facility] [address]-56 5 MG Orally Two times a Week Active 1 tablet Eliquis [facility] [address]-18 5 MG Orally twice a day. Jun 13, 2014 Active as directed Metformin Unknown 0 500 mg Once a day Active as direct Isosorbide Mononitrate CR [facility] [address]-28 30 MG Orally Once a day Active 1 tablet Vitamin D (Ergocalciferol) [facility] [address]-16 80720 UNIT Orally Active 1 capsule Levothyroxine Sodium [facility] [address]-09 75 MCG Orally Once a day Active 1 tablet on an empty stomach in the morning Ciprofloxacin 500 mg BID 7d Unknown 0 500 mg orally every 12 hours Active one tab Triamterene [facility] [address]-66 37.5 MG Orally Once a day Active 1 capsule Metoprolol Unknown 0 100 MG Orally Active as directed Social History Social History Element Qualifiers Date [...] you drink alcohol? No Jun 13, 2014 Vital Signs Date/Time: Jun 13, 2014 Weight 232 lbs Cardiac Monitoring Heart Rate 84 /min Blood Pressure Diastolic 62 mm Hg Blood Pressure Systolic 120 mm Hg Summary Purpose [employer] Submission
[2018-11-10] MEDS ORDERED: SODIUM CHLORIDE 0.9% 500ML 500 ML IV ONE (08:30)
[2018-11-10 08:58] LABS: INR 1.09; PARTIAL THROMBOPLASTIN TIME 35.5 seconds (23.8-35.5); PROTHROMBIN TIME 15.1 seconds (11.9-14.5)
[2018-11-10 09:08] LABS: ALBUMIN 3.2 g/dL (3.5-5.0); ANION GAP 12.1 mmol/L (8-16); CALCIUM 9.1 mg/dL (8.4-10.2); CREATININE, SERUM 0.93 mg/dL (0.57-1.11); MAGNESIUM 1.8 MG/DL (1.3-2.1); POTASSIUM 4.1 mmol/L (3.5-5.1)
--- NOTE | 2018-11-10 09:12 | Diagnostic Imaging Report ---
Examination: Single AP view of the chest. COMPARISON: None. INDICATION: Dizziness DISCUSSION: The patient is rotated to the right. Left subclavian approach implantable cardiac device body projects over the left paramediastinal region. Lead is difficult to visualize but likely projects over the right ventricle. The lungs are well-inflated and without gross consolidation, pleural effusion, or pneumothorax. Heart size is at the upper limits of normal without overt pulmonary edema. No acute osseous abnormality. IMPRESSION: Borderline cardiomegaly without vascular decompensation. Signed by: Dr. Alex Oswald M.D. on 11/10/2018 9:09 AM
[2018-11-10 09:29] LABS: THYROID STIMULATING HORMONE 1.655 uIU/mL (0.350-4.940)
--- NOTE | 2018-11-10 09:47 | Diagnostic Imaging Report ---
EXAMINATION: Head CT HISTORY: Dizziness, vertigo, ataxia COMPARISON: None. TECHNIQUE: Multidetector axial images were obtained without contrast from the foramen magnum to the vertex . The images were reconstructed using brain and bone algorithms. Thin section brain images were reformatted into coronal and sagittal planes. Image quality: Motion/streaking artifact limits the evaluation of the skull base and posterior cranial fossa. Dose modulation, iterative reconstruction, and/or weight based adjustment of the mA/kV was utilized to reduce the radiation dose to as low as reasonably achievable. FINDINGS: Parenchyma: 1. Few scattered mildly confluent periventricular and schaffer radiata white matter hypodensities, most likely nonspecific chronic microvascular ischemic changes. 2. No mass or hemorrhage. No CT evidence of acute territorial vascular insult. Extra-axial spaces:No abnormal density. No extra-axial fluid collections Brain volume: Normal for age. Ventricles: No hydrocephalus or displacement. Arteries: Prominent calcified atherosclerotic changes of the left vertebral and bilateral carotid arteries. No Hyperdense vessels at this time. Dural sinuses: No abnormal density. Extra-axial spaces: No abnormal density. Foramen magnum: No mass, Chiari malformation, or basilar invagination. Sella: No obvious mass. Paranasal/mastoid sinuses: Imaged portions unremarkable. Skull/Scalp: No lytic or blastic lesions. No fractures. IMPRESSION: 1. No acute intracranial hemorrhage or cortical infarct. 2. Mild chronic microvascular ischemic changes. Signed by: Dr. Kiki Love M.D. on 11/10/2018 9:44 AM
[2018-11-10 09:49] LABS: BASOPHILS # (AUTO) 0.1 (0.0-0.1); BASOPHILS % 1.1 % (0.0-1.0); EOSINOPHILS # (AUTO) 0.2 (0.0-0.4); EOSINOPHILS % 4.6 % (0.0-6.0); HEMOGLOBIN 13.7 g/dL (12.0-16.0); LYMPHOCYTES # (AUTO) 1.2 (1.0-3.2); LYMPHOCYTES % 27.1 % (18.0-39.1); MEAN CORPUSCULAR HEMOGLOBIN 32.9 pg (28-32); MEAN CORPUSCULAR HGB CONC 32.6 g/dL (31-35); MEAN CORPUSCULAR VOLUME 100.7 fL (81-99); MONOCYTES # (AUTO) 0.5 (0.2-0.8); MONOCYTES % 12.1 % (4.4-11.3); NEUTROPHILS # (AUTO) 2.4 (2.1-6.9); NEUTROPHILS % 54.9 % (38.7-80.0); PLATELET COUNT 122 x10e3/uL (140-360); RED BLOOD COUNT 4.17 x10e6/uL (3.6-5.1); RED CELL DISTRIBUTION WIDTH 13.6 % (11.7-14.4)
[2018-11-10] MEDS ORDERED: CEFTRIAXONE SOD 1 GM/NS 50 ML 50 ML IV SCH (10:14)
[2018-11-10] MEDS ORDERED: HYDRALAZINE HCL 20 MG/ML VIAL IV PRN (10:15)
[2018-11-10] MEDS ORDERED: ONDANSETRON HCL INJ 2MG/ML 2ML 2 MG/ML VIAL IV PRN ×2 (10:15)
[2018-11-10] MEDS ORDERED: CEFTRIAXONE SOD 1 GM VIAL IV SCH (10:15)
[2018-11-10] MEDS ORDERED: ACETAMINOPHEN 325 MG TAB PO PRN (10:15)
[2018-11-10 10:37] LABS: BILIRUBIN,URINE NEGATIVE (NEGATIVE); CLARITY,URINE CLEAR (CLEAR); COLOR,URINE YELLOW (YELLOW); KETONES,URINE NEGATIVE (NEGATIVE); LEUKOCYTE ESTERASE ,URINE NEGATIVE (NEGATIVE); NITRITE,URINE NEGATIVE (NEGATIVE); PROTEIN,URINE DIPSTICK NEGATIVE (NEGATIVE); URINE UROBILINOGEN 0.2 mg/dL (0.2 - 1)
[2018-11-10] MEDS ORDERED: ALBUTEROL/IPRATROPIUM 3 ML NEB NEB PRN (10:45)
[2018-11-10] MEDS ORDERED: BACLOFEN 10 MG TAB PO PRN (10:45)
[2018-11-10] MEDS ORDERED: PREGABALIN 50 MG CAP PO PRN (10:45)
[2018-11-10] MEDS ORDERED: TRIAMTERENE/HCTZ 37.5-25 MG TAB PO SCH (10:45)
[2018-11-10 10:51] LABS: BACTERIA,URINE RARE /HPF; EPITHELIAL CELLS,URINE FEW /LPF; WBC,URINE (MAN) 0-5 /HPF (0-5)
[2018-11-10] MEDS ORDERED: DEXTROSE 50% SYRINGE 50 ML IV PRN ×2 (11:15→11:45)
[2018-11-10] MEDS ORDERED: INSULIN LISPRO 100 UNIT/1 ML 3ML VIAL SQ SCH (11:30)
--- OUTSIDE RECORDS SUMMARY | 2018-11-10 12:10 | XMS REPORT ---
Author Author [facility] Address Unknown Phone Unavailable Care Team Providers Care Trucking Contractor Name Role Phone Carolee BONNER Unavailable Unavailable Problems This patient has no known problems. Allergies, Adverse Reactions, Alerts This patient has no known allergies or adverse reactions. Medications This patient has no known medications. Results Test Description Test Time Test Comments Text Results Atomic Results Result Comments CT BRAIN WO 2018-11-10 09:41:00 [place] [address] Patient Name: AMAURY CONTE MR #: [id number] : 1945 Age/Sex: 73/F Req #: [id number] Adm Physician: Ordered by: NEL BONNER MD Report #: [id number] Location: ER Room/Bed: Procedure: [id number] CT/CT BRAIN WO Exam Date: 11/10/18 Exam Time: 918 REPORT STATUS: Signed EXAMINATION: Head CT HISTORY: Dizziness, vertigo, ataxia COMPARISON: None. TECHNIQUE: Multidetector axial images were obtained without contrast from the foramen magnum to the vertex . The images were reconstructed using brain and bone algorithms. Thin section brain images were reformatted into coronal and sagittal planes. Image quality: Motion/streaking artifact limits the evaluation of the skull base and posterior cranial fossa. Dose modulation, iterative reconstruction, and/or weight based adjustment of the mA/kV was utilized to reduce the radiation dose to as low as reasonably achievable. FINDINGS: Parenchyma: 1. Few scattered mildly confluent periventricular and schaffer radiata white matter hypodensities, most likely nonspecific chronic microvascular ischemic changes. 2. No mass or hemorrhage. No CT evidence of acute territorial vascular insult. Extra-axial spaces:No abnormal density. No extra-axial fluid collections Brain volume: Normal for age. Ventricles: No hydrocephalus or displacement. Arteries: Prominent calcified atherosclerotic changes of the left vertebral and bilateral carotid arteries. No Hyperdense vessels at this time. Dural sinuses: No abnormal density. Extra-axial spaces: No abnormal density. Foramen magnum: No mass, Chiari malformation, or basilar invagination. Sella: No obvious mass. Paranasal/mastoid sinuses: Imaged portions unremarkable. Skull/Scalp: No lytic or blastic lesions. No fractures. IMPRESSION: 1. No acute intracranial hemorrhage or cortical infarct. 2. Mild chronic microvascular ischemic changes. Signed by: Dr. Salma Love M.D. on 11/10/2018 9:44 AM Dictated By: SALMA LOVE MD 3 Transcribed By: JUAN on 11/10/18943 COPY TO: NEL BONNER MD CHEST SINGLE (PORTABLE) 2018-11-10 09:07:00 [place] [address] Patient Name: AMAURY CONTE MR #: [id number] : 1945 Age/Sex: 73/F Req #: [id number] Adm Physician: Ordered by: NEL BONNER MD Report #: [id number] Location: ER Room/Bed: Procedure: [id number] DX/CHEST SINGLE (PORTABLE) Exam Date: 11/10/18 Exam Time: 0900 REPORT STATUS: Signed Examination: Single AP view of the chest. COMPARISON: None. INDICATION: Dizziness DISCUSSION: The patient is rotated to the right. Left subclavian approach implantable cardiac device body projects over the left paramediastinal region. Lead is difficult to visualize but likely projects over the right ventricle. The lungs are well-inflated and without gross consolidation, pleural effusion, or pneumothorax. Heart size is at the upper limits of normal without overt pulmonary edema. No acute osseous abnormality. IMPRESSION: Borderline cardiomegaly without vascular decompensation. Signed by: Dr. Luciana Braga M.D. on 11/10/2018 9:09 AM Dictated By: LUCIANA BRAGA MD 8 Transcribed By: JUAN on 11/10/18908 COPY TO: NEL BONNER MD
[2018-11-10] MEDS: FENOFIBRATE 145 MG TAB PO SCH (12:28)
[2018-11-10] MEDS: METOPROLOL SUCCINATE 50 MG TAB XL PO SCH (12:43)
[2018-11-10] MEDS: LORATADINE 10 MG TAB PO SCH (12:43)
[2018-11-10] MEDS: AMIODARONE HCL 200 MG TAB PO SCH (12:46)
[2018-11-10] MEDS: LISINOPRIL 20 MG TAB PO SCH (12:46)
[2018-11-10] MEDS: MECLIZINE HCL 12.5 MG TAB PO PRN (12:47)
[2018-11-10] MEDS: FAMOTIDINE 20 MG/2 ML VIAL IV SCH ×2 (12:47→23:29)
--- NOTE | 2018-11-10 14:37 | NUR ---
Requesting to go to BR. Yellow socks applied, assisted up to BR with standby assistance. Utilizing walker. c/o minimal dizziness upon standing.
--- NOTE | 2018-11-10 15:20 | NUR ---
Placed on to hospital bed, positioned to comfort.
--- NOTE | 2018-11-10 15:40 | NUR ---
Unable to flush Lt AC 20ga SL, iv cath removed. Cath intact, dressing to site.
[2018-11-10] MEDS: GLIPIZIDE 5 MG TAB PO SCH (16:53)
[2018-11-10] MEDS: INSULIN LISPRO 100 UNIT/1 ML 3ML VIAL SQ SCH ×2 (16:53→23:38)
--- NOTE | 2018-11-10 16:54 | NUR ---
Pt educated regarding glucose management & purpose of s/s insulin. Pt verbalizes understanding, yet continues to decline glipizide & insuling because her "sugar drops too low." Education reinforced about glucose management. Will continue to monitor.
[2018-11-10] MEDS: SALINE 0.65% NAS SOLN 1 SPRAY BTL SCH ×2 (18:30→22:00)
--- NOTE | 2018-11-10 18:30 | NUR ---
Pt sitting up in bed, awake watching tv, talking with family. Water provided. Denies any complaints at his time or needs. Will continue to monitor.
[2018-11-10] MEDS: FLUTICASONE PROPIONATE NASAL SPRAY NS SCH (18:31)
--- NOTE | 2018-11-10 19:19 | NUR ---
Report to Shine Benavidez LVN.
--- NOTE | 2018-11-10 19:30 | NUR ---
PT UP TO BEDSIDE COMMODE AT THIS TIME, TOLERATED WELL. UPDATED PT WITH PLAN OF CARE, VERBALIZED UNDERSTANDING. BED LOCKED IN LOWEST POSITION, CALL LIGHT WITHIN REACH, ENCOURAGED TO CALL FOR ASSISTANCE. PT AWAITING BED ASSISGNMENT.
[2018-11-10] MEDS ORDERED: LISINOPRIL20 MG PO (19:40)
[2018-11-10] MEDS ORDERED: ELIQUIS PO (19:40)
[2018-11-10] MEDS ORDERED: LEVOTHYROXINE88 MCG PO (19:40)
[2018-11-10] MEDS ORDERED: FENOFIBRATE160 MG PO (19:40)
[2018-11-10] MEDS ORDERED: LYRICA50 MG PO (19:40)
[2018-11-10] MEDS ORDERED: METOPROLOL SUC100 MG PO (19:40)
[2018-11-10] MEDS ORDERED: AMIODARONE HCL200 MG PO (19:40)
[2018-11-10] MEDS ORDERED: TRIAMTERENE-HC1 EAC2 PO (19:40)
--- NOTE | 2018-11-10 20:06 | History and Physical ---
PRIMARY CARE PROVIDER: Dr. Mark Bridges. CHIEF COMPLAINT: Vertigo and dizziness. HISTORY OF PRESENT ILLNESS: The patient notes some sinus congestion and pain on the right side of the face. She also has some chronic hearing loss on the left side. She notes worsening dizziness and vertigo for 3 days. She felt unsteady and was falling when she was walking. She did not note any facial paralysis. She denied any double vision. She had no trouble speaking. She came to the emergency department and received some antiplatelet therapy. She had a CT scan of the head that was negative. She received some IV fluids and she has noted some improvement. PAST MEDICAL HISTORY 1. Hypertension. 2. Diabetes. 3. Atrial fibrillation. 4. Glaucoma. 5. Chronic hearing loss in the left ear. PAST SURGICAL HISTORY 1. Status post cholecystectomy. 2. Status post pacemaker and AICD placed. FAMILY HISTORY: Significant for diabetes and hypertension. SOCIAL HISTORY: The patient is not a smoker or drinker. ALLERGIES: THE PATIENT REPORTS BEING ALLERGIC TO STEROIDS. REVIEW OF SYSTEMS: The patient has no fevers. The patient has no headache. There is some facial pain on the right side. The patient notes some nasal congestion. She also has dizziness and tinnitus. She has no neck pain. She does not complain of any chest pain. She has no difficulty breathing. She has no abdominal pain. She has no nausea or vomiting. She has no diarrhea. PHYSICAL EXAMINATION VITAL SIGNS: The patient is afebrile. The blood pressure is 123/64 and the pulse is 60. The saturation is 97%. HEENT: Examination shows no facial swelling or erythema. Nasal mucosa is edematous. NECK: Shows no JVD or thyromegaly. There is no nuchal rigidity. LYMPHATIC: Examination shows no submandibular, cervical or supraclavicular adenopathy. CARDIOVASCULAR: Reveals a regular rate and rhythm with normal S1 and S2. RESPIRATORY: Auscultation of the lungs shows clear breath sounds bilaterally. There is no wheezing. ABDOMEN: Soft, nontender. There is no rebound or guarding. EXTREMITIES: Shows no leg edema or calf tenderness. IMPRESSIONS 1. Acute labyrinthitis with vertigo and tinnitus. 2. Rhinosinusitis. 3. Ataxia. 4. Thrombocytopenia. 5. Atrial fibrillation. PLANS 1. The patient will be observed in the hospital. 2. ENT consultation. 3. The patient cannot have an MRI because of her pacemaker. 4. Nasal sprays and antibiotics. Job#: [id number] TA
--- NOTE | 2018-11-10 20:38 | NUR ---
PATIENT CARE AND REPORT CALLED TO JOESPH JOHNSON
--- NOTE | 2018-11-10 21:37 | NUR ---
patient is a new admit that arrived via stretcher. patient is awake and talking. patient has been helped into the bed. bed is in lowest position and call light is within reach. will continue to monitor patient.
[2018-11-10 21:50] VITALS: BP 132/65
[2018-11-10 22:00] VITALS: BP 130/60
[2018-11-11] VITALS (7 sets, daily range): BP systolic 101–155; BP diastolic 49–67
[2018-11-11] MEDS: SALINE 0.65% NAS SOLN 1 SPRAY BTL SCH ×5 (02:00→18:00)
[2018-11-11 03:22] LABS: BASOPHILS % 0.9 % (0.0-1.0); EOSINOPHILS # (AUTO) 0.2 (0.0-0.4); EOSINOPHILS % 4.8 % (0.0-6.0); HEMATOCRIT 40.3 % (34.2-44.1); HEMOGLOBIN 12.7 g/dL (12.0-16.0); LYMPHOCYTES # (AUTO) 1.1 (1.0-3.2); LYMPHOCYTES % 25.2 % (18.0-39.1); MEAN CORPUSCULAR HGB CONC 31.5 g/dL (31-35); MEAN CORPUSCULAR VOLUME 104.7 fL (81-99); MONOCYTES # (AUTO) 0.6 (0.2-0.8); MONOCYTES % 12.8 % (4.4-11.3); NEUTROPHILS # (AUTO) 2.4 (2.1-6.9); NEUTROPHILS % 56.1 % (38.7-80.0); PLATELET COUNT 117 x10e3/uL (140-360); RED BLOOD COUNT 3.85 x10e6/uL (3.6-5.1); RED CELL DISTRIBUTION WIDTH 13.8 % (11.7-14.4)
[2018-11-11 03:44] LABS: ALBUMIN 2.9 g/dL (3.5-5.0); ALBUMIN/GLOBULIN RATIO 0.9 (0.8-2.0); ANION GAP 11.2 mmol/L (8-16); CHOL/HDL RATIO 2.9 (3.0-3.6); POTASSIUM 4.2 mmol/L (3.5-5.1)
[2018-11-11 03:52] LABS: B-TYPE NATRIURETIC PEPTIDE2 210.1 pg/mL (0-100)
[2018-11-11 04:02] LABS: CREATINE KINASE MB 0.8 ng/mL (0-5.0)
--- NOTE | 2018-11-11 06:54 | NUR ---
report given to day nurse. patient is resting comfortably in bed. bed is in lowest position and call light is within reach.
--- NOTE | 2018-11-11 06:54 | NUR ---
Voice message left on Dr Henry Elias answering machine regarding consult. awaiting call back.
--- NOTE | 2018-11-11 06:55 | NUR ---
Handoff report rec'd from outgoing retail shift manager nurse. Pt awake at this time and able to verbalize needs. Pt denies pain in her ears at this time, but reports hard to hear out of left ear. Safety measures intact. Call light in reach.
[2018-11-11] MEDS: INSULIN LISPRO 100 UNIT/1 ML 3ML VIAL SQ SCH ×4 (07:30→20:46)
[2018-11-11] MEDS: GLIPIZIDE 5 MG TAB PO SCH ×2 (08:30→16:11)
[2018-11-11] MEDS ORDERED: APIXABAN 5 MG TABLET PO SCH (09:00)
[2018-11-11] MEDS: FLUTICASONE PROPIONATE NASAL SPRAY NS SCH ×2 (09:00→16:11)
[2018-11-11] MEDS: METOPROLOL SUCCINATE 50 MG TAB XL PO SCH (09:50)
[2018-11-11] MEDS: LISINOPRIL 20 MG TAB PO SCH (09:50)
[2018-11-11] MEDS: FENOFIBRATE 145 MG TAB PO SCH (09:50)
[2018-11-11] MEDS: AMIODARONE HCL 200 MG TAB PO SCH (09:50)
[2018-11-11] MEDS: LORATADINE 10 MG TAB PO SCH (09:50)
--- NOTE | 2018-11-11 10:01 | NUR ---
SOCIAL WORK INITIAL ASSESSMENT Podiatry Professor to bedside to discuss plan of care with patient/family. CM/SW role and care transitions discussed. Anticipated discharge plan discussed along with duration of care. CM/SW discussed patients right to make decisions in care. CM/SW work hours given. Patient lives: IN APARTMENT BY SELF Admit/Transfer: VIA ED FROM HOME POA/Emergency contact: DAUGHTER GREGORIO MITCHELL OR SON GAIL CONTE, STATES NUMBER ON FILE. Current/Previous Home Health: NO HOME HEALTH BUT HAS A PROVIDER PCP/Follow-up Care: JUAN Current/Previous DME: W[employer]ER [employer] A WHEELCHAIR Other Services: PROVIDER 6 HOURS A DAY 6 DAYS A WEEK. Employment Status: DISABLED Areas of Concerns: NONE Referral Needs: NONE Education Needs: NONE IMM/BOWSER given and signed (if applicable): BOWSER Goal for discharge: RETURN BACK TO APARTMENT INDEPENDENTLY CM/SW left business card at the bedside with contact information. Name and number was also written on the patients whiteboard. Patient verbalized understanding of discussion. CM will follow-up with ongoing discharge and transition of care needs.
--- NOTE | 2018-11-11 10:14 | Progress Note ---
DATE: Patient reports frequent urination that she believes is related to her diuretics. She has less dizziness, although she still feels somewhat unsteady on her feet. PHYSICAL EXAMINATION VITALS: The blood pressure is 116/51 and the pulse is 61. The respiratory rate is 14 and saturation is 97%. HEENT: Shows no facial swelling or erythema. CARDIAC: Reveals a regular rate and rhythm with a normal S1 and S2. There are no murmurs or rubs. LUNGS: Auscultation of lungs reveals clear breath sounds bilaterally. There is no wheezing. ABDOMEN: Soft and nontender. There is no rebound or guarding. EXTREMITIES: Shows 1+ leg edema. NEUROLOGICAL: Does shows some unsteadiness. IMPRESSION 1. Acute vertigo and ataxia. 2. Tachybrady syndrome requiring a prior pacemaker and automatic implanted cardioverter defibrillator. 3. Atrial fibrillation. 4. Rhinosinusitis. 5. Probable obstructive sleep apnea. PLAN 1. Continue physical therapy. 2. Hold diuretics. 3. ENT evaluation. Job#: [id number] [place]
[2018-11-11] MEDS: FAMOTIDINE 20 MG/2 ML VIAL IV SCH (11:15)
[2018-11-11] MEDS ORDERED: Fluticasone Propionate NS (11:52)
[2018-11-11] MEDS ORDERED: LYRICA50 MG PO (11:52)
[2018-11-11] MEDS ORDERED: Meclizine Hcl PO (11:52)
[2018-11-11] MEDS ORDERED: BACLOFEN10 MG PO (11:52)
--- NOTE | 2018-11-11 11:55 | NUR ---
Kathryn Winslow, CLIENT SERVICES SPECIALIST rounding at this time. Orders rec'd for one time dose Meclizine; When carotid dopplers completed, call CLIENT SERVICES SPECIALIST with results.
[2018-11-11] MEDS: MECLIZINE HCL 12.5 MG TAB PO PRN (12:02)
--- NOTE | 2018-11-11 16:24 | NUR ---
Placed 2nd call to Dr. Figueroa. Spoke with Dr. Figueroa regarding new consult. Addendum: 11/11/18 at 1625 by Maria A Mead RN Dr. Figueroa unaware of 1st attempt made by picking machine operator helper nurse for new consult.
--- NOTE | 2018-11-11 17:02 | NUR ---
Patient denies dizziness at this time.
--- NOTE | 2018-11-11 18:06 | NUR ---
Dr. Figueroa rounding at this time; okay to discharge per Dr. Figueroa.
--- NOTE | 2018-11-11 19:18 | NUR ---
Report received and walking rounds complete. Pt at bedside and in no apparent distress awaiting ride home. Pt has been ok'd for discharge.
--- NOTE | 2018-11-11 19:27 | NUR ---
FACTORY LABORER NURSE AWARE OF DISCHARGE ORDER.
--- NOTE | 2018-11-11 19:58 | Consultation ---
DATE OF CONSULTATION: November 11, 2018 HOSPITAL CONSULTATION HISTORY OF PRESENT ILLNESS: I was kindly asked to see this pleasant 73-year-old woman for evaluation of "vertigo." She has a complicated history of hypertension, hypothyroidism, atrial fibrillation, and diabetes mellitus and presents with a roughly 5-year history of decreased hearing in her left ear, which she reports in recent months has become worse. She has a sensation of fullness in her left ear and intermittent fullness in her right ear. She denies ear drainage; however, she does have tinnitus in her left ear over the last 3 days. She reports that over the last 2 to 3 days, she has developed a sensation of true vertigo, which she describes as spinning and the day prior to admission lasted all day. Prior to this, she has had intermittent episodes of true vertigo lasting for several minutes. In the past, she has attributed her lightheadedness to hypoglycemia, but says that she tested her blood glucose during these episodes and her glucose was normal. She also has many year history of nasal congestion, sinus drainage, and drainage down her throat. PAST MEDICAL HISTORY AND PAST SURGICAL SURGERY: Reviewed and detailed in the chart. WORKUP: Pertinent for normal carotid evaluation. CT scan showed no clinically significant abnormalities with the exception of nonspecific chronic microvascular ischemic changes. PHYSICAL EXAMINATION: The right pinna, external auditory canal, and tympanic membrane were normal. The left pinna and external auditory canal were normal. The tympanic membrane was mildly retracted and hypermobile. She had a moderate nasoseptal deviation with minimal edema at the nasal mucosa. She had no significant postnasal drainage. Her soft palate was symmetrical. On elevation, there was no palpable cervical adenopathy. She had tenderness jugular-digastric area. ASSESSMENT 1. Probable peripheral vertigo. 2. Allergic rhinitis. 3. Chronic rhinosinusitis. 4. Multiple contributing medical comorbidities. PLAN 1. No additional inpatient diagnostic workup or therapy indicated. 2. I will arrange for close followup with audiometric and vestibular evaluation. Thank you very much. Job#: [id number] [place]
--- NOTE | 2018-11-11 20:27 | NUR ---
Pt discharged. Pt signed paperwork and verbalized understanding. All belongings and discharge folder with pt. IV access removed earlier by day shift RN. Pt escorted to patient pickup area via wheelchair and taken home by daughter.
--- NOTE | 2018-11-11 20:38 | Discharge Summary ---
ADMISSION DIAGNOSES 1. Dizziness. 2. Dysuria. 3. Thrombocytopenia. 4. Elevated brain natriuretic peptide. 5. Atrial fibrillation. 6. Hypertension. 7. Hyperlipidemia. 8. Type 2 diabetes. 9. Left ear pain and hearing loss. 10. Left arm muscle spasms. 11. Morbid obesity. DISCHARGE DIAGNOSES 1. Dizziness. 2. Dysuria. 3. Thrombocytopenia. 4. Elevated brain natriuretic peptide. 5. Atrial fibrillation. 6. Hypertension. 7. Hyperlipidemia. 8. Type 2 diabetes. 9. Left ear pain and hearing loss. 10. Left arm muscle spasms. 11. Morbid obesity. 12. Rule out cerebrovascular accident. 13. Rule out urinary tract infection. HISTORY: Patient has a history of type 2 diabetes, hyperlipidemia, hypertension, atrial fibrillation, hypothyroidism and is no longer on medication, uterine cancer. SURGICAL HISTORY: Permanent pacemaker, hysterectomy, cholecystectomy, appendectomy, and back surgery. FAMILY HISTORY: Patient's mom and dad both had diabetes. Patient's dad had a stroke. SOCIAL HISTORY: Noncontributory. HOSPITAL COURSE: A 73-year-old female complains of dizziness, which was intermittent until yesterday. Now the dizziness is constant, worse with movement and improved with lying still. She denies nausea, vomiting, and syncope. She also admits to dysuria, but denies hematuria and itching. She complains of left ear pain and hearing loss over the last 4 to 6 months. She also complains of left arm weakness and muscles spasms over the last few months after moving a heavy pillow. On admission, patient had a CT of the brain, which was negative. Echo showed of 60% to 65%. EKG showed AFib 71. UA was negative. Chest x-ray showed borderline cardiomegaly without vascular decompensation. CT of the brain negative. Carotid Doppler negative. The patient was started on meclizine p.r.n. which resolved the dizziness. ENT was consulted, who saw the patient and said it was okay to discharge home. He thinks the dizziness might be related to sinus problems and she should follow up with him outpatient as she does not need to be in the hospital for those problems. The patient will discharge home with family. The patient understands discharge instructions and agrees to plan. She was given a prescription for meclizine, Flonase, and baclofen. Vital signs stable. Patient afebrile. Patient will follow up with primary care in 1 to 2 week and ENT as discussed. DICTATED BY LAWANDA COOK NP Job#: [id number] [place]
--- NOTE | 2018-11-12 05:12 | NUR ---
Rx left by patient. Contact pt family member for pharmacy number. Prescriptions called into [facility] on [address] - [phone]. Detailed Message left on pharm voicemail. Pt family aware of rx called in. Physical copy rx still available and will leave at desk in case needed to be picked up.
== END 2018-11-11 20:25 | disposition home or self-care (01) ==
LOC: ER 08:09 → ERHOLD 08:44 → IMCU 21:40
PROVIDERS: ADMIT Internal Medicine; ATTEND Internal Medicine
DX: H81.392 Other peripheral vertigo, left ear (principal); I48.2 Chronic atrial fibrillation; I10 Essential (primary) hypertension; E11.9 Type 2 diabetes mellitus without complications; E03.9 Hypothyroidism, unspecified; Z95.810 Presence of automatic (implantable) cardiac defibrillator; J32.9 Chronic sinusitis, unspecified; R27.0 Ataxia, unspecified; D69.6 Thrombocytopenia, unspecified; H83.02 Labyrinthitis, left ear; H91.92 Unspecified hearing loss, left ear; I49.5 Sick sinus syndrome; J00 Acute nasopharyngitis [common cold]; E78.5 Hyperlipidemia, unspecified; M62.838 Other muscle spasm; E66.01 Morbid (severe) obesity due to excess calories; Z68.41 Body mass index [BMI] 40.0-44.9, adult; Z85.42 Personal history of malignant neoplasm of other parts of uterus; Z83.3 Family history of diabetes mellitus; Z82.3 Family history of stroke
CPT/HCPCS: 36415 ×2; 70450; 71045; 80053 ×2; 80061; 81001; 82550 ×2; 82553 ×2; 82948 ×2; 83036; 83735 ×2; 83880 ×2; 84443; 84484 ×2; 85025 ×2; 85610; 85730; 87086; 93005; 93306; 93880; 97110; 97116; 97162; 97530; 99285; G0378 ×2; J0696 ×2; J2405; J7040; J0360

== ENCOUNTER 2019-02-05 04:23 | Emergency (ER) | payer OTHER ==
[~2019-02-05] VITALS: Ht 154.9 cm; Wt 99.8 kg
[~2019-02-05 04:23] MED LIST: AMIODARONE HCL200 MG PO; BACLOFEN10 MG PO; ELIQUIS PO; FENOFIBRATE160 MG PO; Fluticasone Propionate NS; LEVOTHYROXINE88 MCG PO; LISINOPRIL20 MG PO; LYRICA50 MG PO; METOPROLOL SUC100 MG PO; Meclizine Hcl PO; TRIAMTERENE-HC1 EAC2 PO
--- OUTSIDE RECORDS SUMMARY | 2019-02-05 04:27 | XMS REPORT | Continuity of Care Document ---
Author Author [facility] Interface Address Unknown Phone Unavailable Problems Problem Status Onset Date Classification Date Reported Comments Source UNK Active 10/14/2016 [facility] DIZZINESS Active 12/01/2012 [facility] Atrial fibrillation Active Diagnosis 06/22/2014 [facility] Essential hypertension, benign Active Diagnosis 06/22/2014 [facility] Congestive heart failure, unspecified Active Diagnosis 06/22/2014 [facility] Dizziness and giddiness Active Diagnosis 06/22/2014 [facility] Pain in soft tissues of limb Active Diagnosis 06/22/2014 [facility] 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 Inactive 10/17/2016 [facility] 24 HR Metoprolol Tartrate 100 MG Extended Release Tablet [Toprol] 100 mg, 1 tab, Route: PO, Drug form: ERTAB, Daily, Start date: 10/17/16 9:00:00 AUTO INSPECTOR, Duration: 30 day, Stop date: 11/15/16 9:00:00 CSTNotes: (Same as: Toprol XL) May split tab, but do not crush. Inactive 10/17/2016 [facility] Isosorbide 30 mg, 1 tab, Route: PO, Drug form: ERTAB, QAM, Dosing Weight 99.545, kg, Start date: 10/17/16 9:00:00 AUTO INSPECTOR, Duration: 30 day, Stop date: 11/15/16 9:00:00 CSTNotes: (Same as:Imdur) "Do Not Crush" Take on empty stomach/ full glass of water. Inactive 10/17/2016 [facility] Hydrochlorothiazide 25 MG / Triamterene 37.5 MG Oral Capsule 1 tab, Route: PO, Drug Form: TAB, Dosing Weight 99.545, kg, Daily, Start date: 10/17/16 9:00:00 AUTO INSPECTOR, Duration: 30 day, Stop date: 11/15/16 9:00:00 CSTNotes: (triamterene-hydrochlorothiazide 37.5-25 mg TAB) (Same As: Maxzide-25) Inactive 10/17/2016 [facility] Esomeprazole 40 mg, Route: PO, Drug form: ECCAP, Daily, Dosing Weight 99.545, kg, Start date: 10/17/16 9:00:00 AUTO INSPECTOR, Duration: 30 day, Stop date: 11/15/16 9:00:00 AUTO INSPECTOR No Longer Active 10/17/2016 [facility] celecoxib 200 mg, 1 cap, Route: PO, Drug form: CAP, Daily, Dosing Weight 99.545, kg, Start date: 10/17/16 9:00:00 AUTO INSPECTOR, Duration: 30 day, Stop date: 11/15/16 9:00:00 CSTNotes: NSAID. Please check indication. Not for seizure. (Same As: CeleBREX) Inactive 10/17/2016 [facility] Protonix 40 mg, 1 tab, Route: PO, Drug form: ECTAB, Before Breakfast, Start date: 10/17/16 7:30:00 AUTO INSPECTOR, Duration: 30 day, Stop date: 11/15/16 7:30:00 CSTNotes: Tablet should not be chewed or crushed. (Same as: Protonix) Inactive 10/17/2016 [facility] influenza virus vaccine, inactivated 0.5 mL, Route: IM, Drug Form: SUSP, Daily, Start date: 10/16/16 16:30:00 AUTO INSPECTOR, Duration: 1 doses or times, Stop date: 10/16/16 16:30:00 CSTNotes: (Same as: Fluzone Quadrivalent, Fluarix Quadrivalent) For 3 years of age and older (0.5 mL IM) Shake well before use Inactive 10/16/2016 [facility] Glipizide 5 MG Oral Tablet 5 mg, 1 tab, Route: PO, Drug form: TAB, BID-Before Meals, Dosing Weight 99.545, kg, Start date: 10/16/16 16:30:00 AUTO INSPECTOR, Duration: 30 day, Stop date: 11/15/16 7:30:00 CSTNotes: (Same as: Glucotrol) 30 min before meals. No Longer Active 10/16/2016 [facility] Glucagon 1 mg, Route: IM, Drug form: PDR/INJ, PRN, Dosing Weight 99.545, kg, PRN Blood Glucose Results, Start date: 10/16/16 13:15:00 AUTO INSPECTOR, Duration: 30 day, Stop date: 11/15/16 13:14:00 AUTO INSPECTOR No Longer Active 10/16/2016 [facility] Dextrose 50% Syringe 12.5 gm, 25 mL, Route: IVP, Drug Form: INJ, Dosing Weight 99.545, kg, PRN, PRN Blood Glucose Results, Start date: 10/16/16 13:15:00 AUTO INSPECTOR, Duration: 30 day, Stop date: 11/15/16 13:14:00 AUTO INSPECTOR No Longer Active 10/16/2016 [facility] Insulin, Aspart, Human 3 unit, 0.03 mL, Route: SUB-Q, Drug form: SOLN, TID-Before Meals, Dosing Weight 99.545, kg, PRN Blood Glucose Results, Start date: 10/16/16 13:15:00 AUTO INSPECTOR, Duration: 30 day, Stop date: 11/15/16 13:14:00 CSTNotes: Roll in palms of hands gently; Do not shake vigorously. (Same as: NovoLOG) "single patient use only" WASTE: F/P - Black; E - Domee Trash Bin Stable for 28 days at room temperature. Expires in days from Date No Longer Active 10/16/2016 [facility] Lyrica 50 mg, 1 cap, Route: PO, Drug form: CAP, TID, Dosing Weight 99.545, kg, Start date: 10/16/16 13:00:00 AUTO INSPECTOR, Duration: 30 day, Stop date: 11/15/16 9:00:00 CSTNotes: Same as Lyrica No Longer Active 10/16/2016 [facility] tramadol hydrochloride 50 MG Oral Tablet 50 mg, 1 tab, Route: PO, Drug form: TAB, Q6H, Dosing Weight 99.545, kg, PRN Pain Score 7-10, Start date: 10/16/16 11:26:00 AUTO INSPECTOR, Duration: 30 day, Stop date: 11/15/16 11:25:00 CSTNotes: Not to exceed 400mg/day. (Same As: Ultram) No Longer Active 10/16/2016 [facility] acetaminophen-codeine #3 1 tab, Route: PO, Drug Form: TAB, Dosing Weight 99.545, kg, Q4H, PRN Pain Score 4-6, Start date: 10/16/16 11:25:00 AUTO INSPECTOR, Duration: 30 day, Stop date: 11/15/16 11:24:00 CSTNotes: Do not exceed 4gm/day of acetaminophen. (Same as: Tylenol with Codeine # 3) No Longer Active 10/16/2016 [facility] Vancomycin 1,000 mg, Route: IVPB, ONCE, Dosing Weight 99.545, kg, Time Critical Medication, Start date: 10/16/16 11:25:00 AUTO INSPECTOR, Stop date: 10/16/16 11:25:00 CSTNotes: TIME CRITICAL MEDICATION (Same As: Vancocin) I nfusion rate 2001 mg: infuse over 2.5 hours MEDICATION WASTE Product Size: 1000 mg Product Wasted: ___ mg Inactive 10/16/2016 [facility] Glipizide 5 MG Oral Tablet 5 mg=1 tab, PO, BID-Before Meals, # 30 tab, 1 Refill(s) Active 10/15/2016 [facility] apixaban 5 MG Oral Tablet [Eliquis] 5 mg=1 tab, PO, Daily, 0 Refill(s) Active 10/15/2016 [facility] metoprolol 100 mg oral tablet, extended release 100 mg=1 tab, PO, Daily, # 30 tab, 0 Refill(s) Active 10/15/2016 [facility] pregabalin 50 MG Oral Capsule [Lyrica] 50 mg=1 cap, PO, TID, 0 Refill(s) Active 10/15/2016 [facility] tramadol hydrochloride 50 MG Oral Tablet 50 mg=1 tab, PO, Q6H, PRN Pain, # 40 tab, 0 Refill(s) Active 10/15/2016 [facility] dronedarone 400 MG Oral Tablet [Multaq] 400 mg=1 tab, PO, BID, # 60 tab, 0 Refill(s) Active 10/15/2016 [facility] Esomeprazole 40 MG Enteric Coated Capsule 40 mg=1 cap, PO, Daily, # 30 cap, 0 Refill(s) Active 10/15/2016 [facility] Metformin hydrochloride 500 MG Oral Tablet 500 mg=1 tab, PO, BID-Meals, # 30 tab, 0 Refill(s) Active 10/15/2016 [facility] celecoxib 200 mg oral capsule 200 mg=1 cap, PO, Daily, # 30 cap, 0 Refill(s) Active 10/15/2016 [facility] isosorbide mononitrate 30 mg oral tablet, extended release 30 mg=1 tab, PO, QAM, # 30 tab, 0 Refill(s) Active 10/15/2016 [facility] Hydrochlorothiazide 25 MG / Triamterene 37.5 MG Oral Capsule 1 cap, PO, Daily, # 30 cap, 0 Refill(s) Active 10/15/2016 [facility] Thyroxine Daily, 0 Refill(s) Active 10/15/2016 [facility] Metoprolol Succinate 1 TABLET Orally Active 100 MG Orally ONCE A DAY Rose Mary 06/13/2014 [facility] Triamterene-HCTZ 1 tablet in the morning Orally Active 37.5-25 MG Orally Once a day Rose Mary 06/13/2014 [facility] Eliquis as directed Orally Active 5 MG Orally twice a day. 06/13/2014 [facility] Triamterene 1 capsule Orally Active 37.5 MG Orally Once a day [facility] Metoprolol as directed Orally Active 100 MG Orally [facility] Levothyroxine Sodium 1 tablet on an empty stomach in the morning Orally Active 75 MCG Orally Once a day [facility] Vitamin D (Ergocalciferol) 1 capsule Orally Active 18550 UNIT Orally [facility] Isosorbide Mononitrate CR 1 tablet Orally Active 30 MG Orally Once a day [facility] Metformin as direct NA Active 500 mg Once a day [facility] Xarelto 1 tablet with food [...] [facility] Solu-MEDROL Assertion Drug allergy Active [facility] Immunizations Immunization Date Given Site Status Last Updated Comments Source influenza virus vaccine, inactivated 10/16/2016 Right deltoid completed [facility] Results Order Name Results Value Reference Range Date Interpretation Comments Source Chest 2 views DX Chest 2 views DX Patient Name: AMAURY CONTE : 1945; Age: 71 years Female MR: [id number] Study: Chest 2 views DX Order Time: 10/17/2016 3:00 AM AUTO INSPECTOR CLINICAL INDICATION: Line Placement ADDITIONAL HISTORY: None COMPARISON: Chest radiograph on 10/16/2016 FINDINGS: Lines: Stable position of the left chest pacemaker. Lungs: Hyperinflated lungs. Linear scarring and/or atelectasis within the left midlung. No effusion or pneumothorax. Mediastinum: The cardiac silhouette is mildly enlarged. Midline trachea. Bones and soft tissues: Unremarkable. IMPRESSION: No acute cardiopulmonary abnormalities. SL: [id number] 10/17/2016 - - Read by: Oleg Arora MD Dictated Date/time: 10/17/16 15:00 Electronically Signed by: Oleg Arora MD 10/17/16 15:01 FINAL REPORT [facility] Chest 1view DX Chest 1view DX Patient Name: AMAURY CONTE : 1945; Age: 71 years y/o Female MR: [id number] Study: Chest 1view DX 10/16/2016 11:25 AM AUTO INSPECTOR Ordering Physician: MD Omer Zelaya MD Clinical [...] pneumothorax seen. No other new/acute findings. SL: [id number] 10/16/2016 - - Read by: Charles Chaves MD Dictated Date/time: 10/16/16 14:03 Electronically Signed by: Charles Chaves MD 10/16/16 14:04 FINAL REPORT [facility] CHEM PANEL eGFR 50 mL/min/1.73m2 10/15/2016 [...] should be multiplied by the estimated BMI. [facility] CHEM PANEL Potassium Lvl 4.3 meq/L 3.5 - 5.1 10/15/2016 [facility] CHEM PANEL Chloride Lvl 111 meq/L 95 - 109 10/15/2016 [facility] CHEM PANEL CO2 25 meq/L 24 - 32 10/15/2016 [facility] CHEM PANEL Calcium Lvl 9.2 mg/dL 8.5 - 10.5 10/15/2016 [facility] CHEM PANEL Creatinine Lvl 1.10 mg/dL 0.50 - 1.40 10/15/2016 [facility] CHEM PANEL BUN 24 mg/dL 7 - 22 10/15/2016 [facility] CHEM PANEL Sodium Lvl 143 meq/L 135 - 145 10/15/2016 [facility] CHEM PANEL Glucose Lvl 162 mg/dL 70 - 99 10/15/2016 [facility] CHEM PANEL AGAP 11.3 meq/L 10.0 - 20.0 10/15/2016 [facility] HEMATOLOGY Lymphocytes # 1.3 K/CMM 1.0 - 5.5 10/15/2016 [facility] HEMATOLOGY Segs-Bands # 3.6 K/CMM 1.5 - 8.1 10/15/2016 [facility] HEMATOLOGY Monocytes # 0.6 K/CMM 0.0 [...] PTT 32.6 s 22.9 - 35.8 10/15/2016 [facility] HEMATOLOGY INR 1.26 0.85 - 1.17 10/15/2016 [facility] HEMATOLOGY PT 16.1 s 12.0 - 14.7 10/15/2016 [facility] HEMATOLOGY MCH 31.1 pg 27.0 - 31.0 10/15/2016 [facility] HEMATOLOGY MCV 95.1 fL 80.0 - 98.0 10/15/2016 [facility] HEMATOLOGY MCHC 32.7 g/dL 32.0 - 36.0 10/15/2016 [facility] HEMATOLOGY Hct 42.7 % 36.0 - 48.0 10/15/2016 [facility] HEMATOLOGY MPV 9.9 fL 7.4 - 10.4 10/15/2016 [facility] HEMATOLOGY Platelet 135 K/CMM 133 - 450 10/15/2016 [facility] HEMATOLOGY RDW 14.0 % 11.5 - 14.5 10/15/2016 [facility] HEMATOLOGY RBC 4.49 M/CMM 4.20 - 5.40 10/15/2016 [facility] HEMATOLOGY WBC 5.8 K/CMM 3.7 - 10.4 10/15/2016 [facility] HEMATOLOGY Hgb 14.0 g/dL 12.0 - 16.0 10/15/2016 [facility] Vital Signs Vital Sign Value Date Comments Source Respitory Rate 16 10/17/2016 [facility] Systolic (mm Hg) 97 10/17/2016 [facility] Diastolic (mm Hg) 59 10/17/2016 [facility] Heart Rate 71 10/17/2016 [facility] Temperature Oral (F) 98.1 F 10/17/2016 [facility] Systolic (mm Hg) 111 10/17/2016 [facility] Diastolic (mm Hg) 63 10/17/2016 [facility] Respitory Rate 18 10/17/2016 [facility] Temperature Oral (F) 98.1 F 10/17/2016 [facility] Heart Rate 79 10/17/2016 [facility] Respitory Rate 16 10/17/2016 [facility] Systolic (mm Hg) 130 10/17/2016 [facility] Diastolic (mm Hg) 72 10/17/2016 [facility] Heart Rate 85 10/17/2016 [facility] Temperature Oral (F) 98.1 F 10/17/2016 [facility] BMI Calculated 41.47 10/15/2016 [facility] Height 154.94 cm 10/15/2016 [facility] Weight 99.545 10/15/2016 [facility] Weight 232 06/13/2014 [facility] Heart [...] Provider ADM Date DC Date Status Source [facility] [id number] THELMA BARCENAS 12/01/2012 12/01/2012 Active [facility] Rose Mary JACOBSON ECHO [id number] 02/22/2014 02/22/2014 [facility] Rose Mary JACOBSON ECHO [id number] 02/22/2014 02/22/2014 [facility] Rose Mary JACOBSON ECHO [id number] 02/22/2014 02/22/2014 [facility] Rose Mary JACOBSON ECHO [id number] 02/22/2014 02/22/2014 [facility] Rose Marynhan JACOBSON ECHO [id number] 02/22/2014 02/22/2014 [facility] Rose Marynhan JACOBSON ECHO [id number] 02/22/2014 02/22/2014 [facility] Rose Mary JACOBSON ECHO [id number] 02/22/2014 02/22/2014 [facility] Rose Marynhan JACOBSON ECHO [id number] 02/22/2014 02/22/2014 [facility] Rose Mary MCMILLAN PA F/U FOR ECHO [id number] 02/22/2014 02/22/2014 [facility] Rose Mary MCMILLAN PA F/U FOR ECHO [id number] 02/22/2014 02/22/2014 [facility] Rose Mary MCMILLAN PA F/U FOR ECHO [id number] 02/22/2014 02/22/2014 [facility] Rose Mary MCMILLAN PA F/U FOR ECHO [id number] 02/22/2014 02/22/2014 [facility] Rose Mary MCMILLAN PA F/U FOR ECHO [id number] 02/22/2014 02/22/2014 [facility] Rose Marynhan MCMILLAN PA F/U FOR ECHO [id number] 02/22/2014 02/22/2014 [facility] Rose Marynhan MCMILLAN PA F/U FOR ECHO [id number] 02/22/2014 02/22/2014 [facility] Rose Marynhan JACOBSON F/U FOR ECHO [id number] 02/22/2014 02/22/2014 [facility] Rose Mary MCMILLAN PA Refills [id number] 05/01/2014 05/01/2014 [facility] Rose Mary MCMILLAN PA Refills [id number] 05/01/2014 05/01/2014 [facility] Rose Mary MCMILLAN PA Refills [id number] 05/01/2014 05/01/2014 [facility] Rose Mary MCMILLAN PA Refills [id number] 05/01/2014 05/01/2014 [facility] Rose Mary MCMILLAN PA Refills [id number] 05/01/2014 05/01/2014 [facility] Rose Mary MCMILLAN PA Refills [id number] 05/01/2014 05/01/2014 [facility] Rose Mary MCMILLAN PA Refill [id number] 05/03/2014 05/03/2014 [facility] Rose Mary MCMILLAN PA Refill [id number] 05/03/2014 05/03/2014 [facility] Rose Mary MCMILLAN PA Refill [id number] 05/03/2014 05/03/2014 [facility] Rose Mary MCMILLAN PA Refill [id number] 05/03/2014 05/03/2014 [facility] Rose Mary MCMILLAN PA Refill [id number] 05/03/2014 05/03/2014 [facility] Rose Mary JACOBSON Refill [id number] 05/03/2014 05/03/2014 [facility] Rose Mary MCMILLAN PA Refills [id number] 05/03/2014 05/03/2014 [facility] Rose Mary MCMILLAN PA Refills [id number] 05/03/2014 05/03/2014 [facility] Rose Mary JACOBSON Refills [id number] 05/03/2014 05/03/2014 [facility] Rose Mary MCMILLAN PA Refills [id number] 05/03/2014 05/03/2014 [facility] Rose Mary MCMILLAN PA Refills [id number] 05/03/2014 05/03/2014 [facility] Rose Mary MCMILLAN PA Refills [id number] 05/03/2014 05/03/2014 [facility] Rose Mary JACOBSON Unknown [id number] 05/03/2014 05/03/2014 [facility] Rose Mary JACOBSON Unknown [id number] 05/03/2014 05/03/2014 [facility] Rose Mary JACOBSON Unknown [id number] 05/03/2014 05/03/2014 [facility] Rose Mary JACOBSON Unknown [id number] 05/03/2014 05/03/2014 [facility] Rose Mary JACOBSON Unknown [id number] 05/03/2014 05/03/2014 [facility] Rose Mary JACOBSON Unknown [id number] 05/03/2014 05/03/2014 [facility] Rose Mary JACOBSON medicatins [id number] 06/13/2014 06/13/2014 [facility] Rose Mary JACOBSON medicatins [id number] 06/13/2014 06/13/2014 [facility] Rose Mary JACOBSON REFILL [id number] 06/13/2014 06/13/2014 [facility] Rose Mary JACOBSON REFILL [id number] 06/13/2014 06/13/2014 [facility] [id number] Omer Zelaya 10/16/2016 10/17/2016 [facility] Procedure Code Date Perfomer Comments Source Appendectomy [id number] [facility] Cholecyst[facility] [id number] [facility] Hysterectomy [id number] [facility] Lumbar spinal fusion [id number] [facility]
== END 2019-02-05 06:13 | disposition left against medical advice (07) ==
LOC: ER 04:59
DX: R42 Dizziness and giddiness (principal)

== ENCOUNTER 2020-04-07 11:26 | Inpatient (IN) | payer MEDICARE, OTHER ==
[~2020-04-07] VITALS: Ht 165.1 cm; Wt 103.4 kg
--- NOTE | 2020-04-07 11:26 | NUR ---
PATIENT TAKEN STRAIGHT TO CT UPON ARRIVAL
[2020-04-07] MEDS ORDERED: IRON PO (11:46)
[2020-04-07] MEDS ORDERED: MECLIZINE HCL12.5 MG PO (11:46)
[2020-04-07] MEDS ORDERED: METOPROLOL SUCC25 MG PO (11:46)
[2020-04-07] MEDS ORDERED: LASIX20 MG PO (11:46)
[2020-04-07] MEDS ORDERED: ELIQUIS5 M1 PO (11:46)
[2020-04-07] MEDS ORDERED: ISOSORBIDE MONO30 MG PO (11:46)
[2020-04-07] MEDS ORDERED: FENOFIBRATE145 MG PO (11:46)
[2020-04-07] MEDS ORDERED: B12 ACTIVE1000 MCG PO (11:46)
[2020-04-07] MEDS ORDERED: LISINOPRIL10 MG PO (11:46)
[2020-04-07] MEDS ORDERED: SODIUM CHLORIDE 0.9% 1000ML 1,000 ML IV STA (11:58)
--- NOTE | 2020-04-07 12:07 | Diagnostic Imaging Report ---
History:Weakness Comparison studies: Head CT on 11/10/2018 Technique: Axial images were obtained from the skull base to the vertex. Coronal and sagittal images reconstructed from the axial data. Dose modulation, iterative reconstruction, and/or weight based adjustment of the mA/kV was utilized to reduce the radiation dose to as low as reasonably achievable. Intravenous contrast: None Findings: Scalp/skull: No abnormalities. Extra-axial spaces: No masses. No fluid collections. Brain sulci: Mildly prominent. Ventricles: Mild compensatory dilatation. No hydrocephalus. Parenchyma: Ill-defined, confluent hypodensities in the supratentorial white matter are microvascular ischemic changes. No masses, hemorrhage, acute or chronic cortical vascular insults. Sellar/suprasellar region: No abnormalities. Craniocervical junction: Patent foramen magnum. No Chiari one malformation. Incidental findings: Atherosclerotic calcifications in the carotid siphons and left vertebral artery. Impression: 1. No acute abnormalities. 2. No changes when compared to head CT of 11/10/2018 Chronic findings: * Mild generalized volume loss. * Moderate supratentorial white matter small vessel ischemic changes. Signed by: Dr. Joseluis Robertson M.D. on 04/07/2020 12:03 PM
[2020-04-07 12:13] LABS: BASOPHILS % 0.6 % (0.0-1.0); EOSINOPHILS # (AUTO) 0.2 (0.0-0.4); LYMPHOCYTES % 21.7 % (18.0-39.1); MEAN CORPUSCULAR HEMOGLOBIN 33.7 pg (28-32); MEAN CORPUSCULAR HGB CONC 29.9 g/dL (31-35); MEAN CORPUSCULAR VOLUME 112.8 fL (81-99); MONOCYTES # (AUTO) 0.6 (0.2-0.8); MONOCYTES % 11.7 % (4.4-11.3); NEUTROPHILS % 61.6 % (38.7-80.0); PLATELET COUNT 160 x10e3/uL (140-360); RED BLOOD COUNT 1.96 x10e6/uL (3.6-5.1); RED CELL DISTRIBUTION WIDTH 18.1 % (11.7-14.4)
[2020-04-07 12:16] LABS: HEMATOCRIT 22.1 % (34.2-44.1); HEMOGLOBIN 6.6 g/dL (12.0-16.0)
[2020-04-07] MEDS ORDERED: PANTOPRAZOLE 40 MG 10ML VIAL IV STA (12:17)
[2020-04-07 12:25] LABS: INR 3.06; PARTIAL THROMBOPLASTIN TIME 42.7 seconds (23.8-35.5)
[2020-04-07] MEDS ORDERED: FUROSEMIDE INJ 10 MG/ML 2 ML VIAL IV PRN (12:30)
[2020-04-07] MEDS ORDERED: SODIUM CHLORIDE 0.9% 250ML 250 ML IV ONE (12:30)
[2020-04-07 12:32] LABS: ALBUMIN 2.5 g/dL (3.5-5.0); ALBUMIN/GLOBULIN RATIO 0.8 (0.8-2.0); ANION GAP 12.2 mmol/L (8-16); CALCIUM 8.7 mg/dL (8.4-10.2); CREATININE, SERUM 1.57 mg/dL (0.57-1.11); POTASSIUM 4.2 mmol/L (3.5-5.1)
[2020-04-07 12:40] LABS: CREATINE KINASE MB 1.5 ng/mL (0-5.0)
[2020-04-07 12:48] LABS: CLARITY,URINE CLEAR (CLEAR); COLOR,URINE YELLOW (YELLOW)
[2020-04-07 12:49] LABS: AMPHETAMINES SCREEN,URINE NEGATIVE (NEGATIVE); BENZODIAZEPINES SCREEN,URINE NEGATIVE (NEGATIVE); KETONES,URINE NEGATIVE (NEGATIVE); LEUKOCYTE ESTERASE ,URINE NEGATIVE (NEGATIVE); NITRITE,URINE NEGATIVE (NEGATIVE); PHENCYCLIDINE SCREEN,URINE NEGATIVE (NEGATIVE); PROTEIN,URINE DIPSTICK NEGATIVE (NEGATIVE)
[2020-04-07 12:50] LABS: BILIRUBIN,URINE NEGATIVE (NEGATIVE); URINE UROBILINOGEN 8 mg/dL (0.2 - 1)
--- NOTE | 2020-04-07 13:02 | Diagnostic Imaging Report ---
EXAMINATION: CHEST SINGLE (PORTABLE) COMPARISON: Chest x-ray 11/10/2018 INDICATION: ^AMS, HYPOTENSION ^[id number] ^1230 DISCUSSION: Frontal view of the chest obtained at 1237 hours. HEART AND MEDIASTINUM: The heart is mildly enlarged and stable in morphology LINES: AICD lead terminates in the right ventricle. Battery pack is in the left chest wall. LUNGS/PLEURA: The lungs are well inflated and clear. Central point vasculature is prominent and stable. No infiltrates or interstitial edema. No pleural effusion or pneumothorax. BONES AND SOFT TISSUES: No focal osseous lesion. The soft tissues are normal. IMPRESSION: Stable mild cardiomegaly and central pulmonary vascular congestion. No infiltrates. Signed by: Dr. Rocael Mustafa MD on 04/07/2020 12:58 PM
[2020-04-07 13:04] LABS: BACTERIA,URINE RARE /HPF; EPITHELIAL CELLS,URINE RARE /LPF; RBC,URINE 0-5 /HPF (0-5); WBC,URINE (MAN) 0-5 /HPF (0-5)
[2020-04-07] MEDS ORDERED: ONDANSETRON HCL INJ 2MG/ML 2ML 2 MG/ML VIAL IV PRN ×2 (13:15→17:15)
--- NOTE | 2020-04-07 13:27 | Emergency Department Note ---
History of Present Illnes History of Present Illness Chief Complaint: Neurological History of Present Illness This is a 74 year old female Patient in from home with family with complaints of abnormal behavior yesterday and urinary incontinence. Family reports that the patient started acting out of character yesterday with slurred speech and forgetfulness. 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, Family Member Arrival Mode: Car Parachute Line Tier Required: No Past Medical/Family History Physician Review I have reviewed the patient's past medical and family history. Any updates have been documented here. Past Medical History Recent Fever: No Clinical Suspicion of Infectio: Yes New/Unexplained Change in Ment: Yes Past Medical History: Hypertension, Diabetes, A-Fib, Hypothyroidism, Cancer, UTI's, Hyperlipedemia Past Surgical History: Hysterectomy, Pacer/AICD, Cataract Removal Other Surgery: HYST PACER/DEFIB CATARACTS/GLAUCOMA Other Last Tetanus: UNK Physical Exam Related Data Allergies: Uncoded Allergies: STEROIDS (Allergy, Unknown, 11/10/18) Triage Vital Signs Vital Signs Date Time Temp Pulse Resp B/P (MAP) Pulse Ox O2 Delivery O2 Flow Rate FiO2 04/07/20 11:44 98.2 74 17 102/49 100 Physical Exam CONSTITUTIONAL HENT EYES NECK PULMONARY CARDIOVASCULAR GASTROINTESTINAL GENITOURINARY SKIN MUSCULOSKELETAL NEUROLOGICAL PSYCHOLOGICAL Results Laboratory Result Diagram: 04/07/20 1155 04/07/20 1155 Laboratory Laboratory Tests Test 04/07/20 12:25 04/07/20 11:55 Urine Color Yellow (YELLOW) Urine Clarity Clear (CLEAR) Urine pH 6.5 (5 - 7) Urine Specific [place]ue 1.025 (1.010-1.025) Urine Protein Negative (NEGATIVE) Urine Glucose (UA) Negative (NEGATIVE) Urine Ketones Negative (NEGATIVE) Urine Blood Negative (NEGATIVE) Urine Nitrite Negative (NEGATIVE) Urine Bilirubin Negative (NEGATIVE) Urine Urobilinogen 8 mg/dL (0.2 - 1) Urine Leukocyte Esterase Negative (NEGATIVE) Urine RBC 0-5 /HPF (0-5) Urine WBC 0-5 /HPF (0-5) Urine Epithelial Cells Rare /LPF (NONE) Urine Bacteria Rare /HPF (NONE) Urine Opiates Screen Negative (NEGATIVE) Urine Methadone Screen Negative (NEGATIVE) Urine Barbiturates Screen Negative (NEGATIVE) Urine Phencyclidine Screen Negative (NEGATIVE) Urine Amphetamines Screen Negative (NEGATIVE) Urine Methamphetamines Screen Negative (NEGATIVE) Urine Benzodiazepines Screen Negative (NEGATIVE) Urine Cocaine Screen Negative (NEGATIVE) Urine Cannabinoids Screen Negative (NEGATIVE) White Blood Count 4.80 x10e3/uL (4.8-10.8) Red Blood Count 1.96 x10e6/uL (3.6-5.1) Hemoglobin 6.6 g/dL (12.0-16.0) Hematocrit 22.1 % (34.2-44.1) Mean Corpuscular Volume 112.8 fL (81-99) Mean Corpuscular Hemoglobin 33.7 pg (28-32) Mean Corpuscular Hemoglobin Concent 29.9 g/dL (31-35) Red Cell Distribution Width 18.1 % (11.7-14.4) Platelet Count 160 x10e3/uL (140-360) Neutrophils (%) (Auto) 61.6 % (38.7-80.0) Lymphocytes (%) (Auto) 21.7 % (18.0-39.1) Monocytes (%) (Auto) 11.7 % (4.4-11.3) Eosinophils (%) (Auto) 4.0 % (0.0-6.0) Basophils (%) (Auto) 0.6 % (0.0-1.0) Neutrophils # (Auto) 3.0 (2.1-6.9) Lymphocytes # (Auto) 1.0 (1.0-3.2) Monocytes # (Auto) 0.6 (0.2-0.8) Eosinophils # (Auto) 0.2 (0.0-0.4) Basophils # (Auto) 0.0 (0.0-0.1) Absolute Immature Granulocyte (auto 0.02 x10e3/uL (0-0.1) Prothrombin Time 34.0 seconds (11.9-14.5) Prothromb Time International Ratio 3.06 Activated Partial Thromboplast Time 42.7 seconds (23.8-35.5) Sodium Level 150 mmol/L (136-145) Potassium Level 4.2 mmol/L (3.5-5.1) Chloride Level 119 mmol/L (98-107) Carbon Dioxide Level 23 mmol/L (22-29) Anion Gap 12.2 mmol/L (8-16) Blood Urea Nitrogen 49 mg/dL (7-26) Creatinine 1.57 mg/dL (0.57-1.11) Estimat Glomerular Filtration Rate 32 ML/MIN (60-) BUN/Creatinine Ratio 31 (6-25) Glucose Level 203 mg/dL (74-118) Lactic Acid Level 1.9 mmol/L (0.5-2.0) Calcium Level 8.7 mg/dL (8.4-10.2) Total Bilirubin 1.3 mg/dL (0.2-1.2) Alanine Aminotransferase (ALT/SGPT) 26 IU/L (0-55) Alkaline Phosphatase 144 IU/L (40-150) Creatine Kinase 60 IU/L (29-168) Creatine Kinase MB 1.50 ng/mL (0-5.0) Troponin I 0.008 ng/mL (0-0.300) Total Protein 5.7 g/dL (6.5-8.1) Albumin 2.5 g/dL (3.5-5.0) Globulin 3.2 g/dL (2.3-3.5) Albumin/Globulin Ratio 0.8 (0.8-2.0) Procedures 12 Lead ECG Interpretation ECG Interpretation : ECG: ECG 1 Parachute Line Tier: Interpreted by ED physician Date: Apr 07, 2020 Time: 11:50 Prior ECG tracings: reviewed Rhythm: atrial fibrillation Rate: normal Conduction: right bundle branch block ST segments normal: Yes T wave inversion: V1, V2, V3 T waves flattening: II, III, aVF, V4, V5, V6 Clinical Impression: abnormal ECG Assessment & Plan Medical Decision Making MDM AMS YESTERDAY AND URIN INCONTINENCE - CHECK CBC, CHEM, UA/CX, ECG, CARDIAC MARKE RS, UDS, BLOOD CX'S, LACTIC, CT HEAD - R/O UTI, CEREBRAL HEMORRHAGE (PT ON ELIQUIS), STEMI/NSTEMI, ELECTROLYTE ABNL, SEPSIS, PNEUMONIA, COVID, RENAL INSUFF, ANEMIA Reassessment Reassessment D/W DR PETERSON FOR ADMISSION Assessment & Plan Final Impression: (1) Altered mental status (2) Acute renal insufficiency (3) Hypernatremia (4) Macrocytic anemia (5) Atrial fibrillation, chronic Depart Disposition: ADMITTED Last Vital Signs Date Time Temp Pulse Resp B/P (MAP) Pulse Ox O2 Delivery O2 Flow Rate FiO2 04/07/20 11:44 98.2 74 17 102/49 100 Home Meds Reported Medications Meclizine Hcl (MECLIZINE HCL) 12.5 Mg Tablet, 25 MG PO DAILY, TAB 04/07/20 Lisinopril (LISINOPRIL) 10 Mg Tablet, 20 MG PO DAILY, #30 TAB 04/07/20 Furosemide (LASIX) 20 Mg Tablet, 20 MG PO DAILY, #30 TAB 04/07/20 Metoprolol Succinate (METOPROLOL SUCCINATE) 25 Mg Tab.er.24h, 1 TAB PO DAILY 04/07/20 Apixaban (Eliquis) 5 Mg Tab.ds.pk, 1 TAB PO BID 04/07/20 Fenofibrate Nanocrystallized (FENOFIBRATE) 145 Mg Tablet, 160 MG PO DAILY 04/07/20 Isosorbide Mononitrate (ISOSORBIDE MONONITRATE ER) 30 Mg Tab.er.24h, 30 MG PO DAILY, #30 TAB 04/07/20 [Iron] No Conflict Check, 65 MG PO DAILY 04/07/20 Mecobalamin (B12 Active) 1,000 Mcg Tab.chew, 1 TAB PO DAILY 04/07/20 Discontinued Reported Medications Amiodarone Hcl (AMIODARONE HCL) 200 Mg Tablet, 100 MG PO DAILY 11/10/18 Fenofibrate (FENOFIBRATE) 160 Mg Tablet, 160 MG PO DAILY 11/10/18 Levothyroxine Sodium (LEVOTHYROXINE SODIUM) 88 Mcg Tablet, 88 MCG PO DAILY 11/10/18 Lisinopril (PRINAVIL / ZESTRIL) 20 Mg Tablet, 20 MG PO DAILY 11/10/18 Triamterene/Hydrochlorothiazid (TRIAMTERENE-HCTZ 37.5-25 MG CP) 1 Each Capsule, 1 TAB PO DAILY 11/10/18 Metoprolol Succinate (METOPROLOL SUCCINATE) 100 Mg Tab.er.24h, 100 MG PO DAILY 11/10/18 [Eliquis] 5 MG No Conflict Check, 5 MG PO DAILY 11/10/18 Discontinued Scripts [Meclizine Hcl] 12.5 MG TAB No Conflict Check, 25 MG PO Q6HR PRN for VERTIGO, #30 Prov:LAWANDA COOK ADMIN ASSISTANT 11/11/18 [Fluticasone Propionate] 1 EA SPRAY No Conflict Check, 0 EA NS BID, #1 Prov:LAWANDA COOK ADMIN ASSISTANT 1/25/19 Baclofen (BACLOFEN) 10 Mg Tablet, 5 MG PO Q12HR PRN for MUSCLE SPASM, #30 Prov:LAWANDA COOK ADMIN ASSISTANT 11/11/18 Pregabalin (LYRICA) 50 Mg Cap, 50 MG PO TID PRN for PAIN for 30 Days, CAP Prov:LAWANDA COOK ADMIN ASSISTANT 11/11/18 Medications in the ED Sodium Chloride 1,000 ml @ 0 mls/hr Q0M STAT IV ; Start 04/07/20 at 11:58; Stop 04/07/20 at 12:00; Status DC Pantoprazole Sodium 40 mg ONCE STAT IV ; Start 04/07/20 at 12:17; Stop 04/07/20 at 12:21; Status DC Sodium Chloride 250 ml @ 0 mls/hr ONCE ONCE IV ; Start 04/07/20 at 12:30; Stop 04/07/20 at 12:31; Status DC Furosemide 20 mg SENIOR SVP PRN IV SHORTNESS OF BREATH; Start 04/07/20 at 12:30; Stop 05/07/20 at 12:29 Ondansetron HCl 4 mg Q4H PRN IV NAUSEA AND VOMITING; Start 04/07/20 at 13:15; Stop 05/07/20 at 13:14; Status UNV Pantoprazole Sodium 40 mg DAILY IV ; Start 04/08/20 at 09:00; Stop 05/08/20 at 08:59; Status AURELIOV NEL BONNER MD Apr 07, 2020 13:27
[2020-04-07 13:54] LABS: FREE THYROXINE INDEX 3.3708 (1.4-3.8); THYROID STIMULATING HORMONE 4.627 uIU/mL (0.350-4.940)
--- NOTE | 2020-04-07 14:55 | NUR ---
Recvd patient from ER. AAOx3, Assisted her to bed, skin intact, no distress noted, call light in reach
[2020-04-07 15:13] VITALS: BP 103/42
--- NOTE | 2020-04-07 15:50 | NUR ---
1st unit of blood started, no adverse reaction noted in 15 min, keep monitoring
[2020-04-07 16:18] VITALS: BP 103/42
[2020-04-07] MEDS ORDERED: METOPROLOL TARTRATE INJ 1 MG/ML VIAL IV PRN (17:15)
[2020-04-07] MEDS ORDERED: MECLIZINE HCL 12.5 MG TAB PO PRN (17:15)
--- NOTE | 2020-04-07 18:35 | NUR ---
1st unit of blood done, no adverse reaction noted, vitals stable, resting in bed, tolerated dinner
--- NOTE | 2020-04-07 19:05 | NUR ---
Completed bedside shift report with morning nurse. Pt alert and oriented to name lying in bed HOB 45 degrees. Denies pain at this time. Call light within reach. Bed low and locked.
[2020-04-07 19:48] VITALS: BP 104/60
[2020-04-07] MEDS ORDERED: DEXTROSE 50% SYRINGE 50 ML IV PRN (20:15)
[2020-04-07 20:41] VITALS: BP 104/60
[2020-04-07] MEDS: INSULIN LISPRO 100 UNIT/1 ML 3ML VIAL SQ SCH (21:00)
[2020-04-07] MEDS ORDERED: SODIUM CHLORIDE 0.9% 250ML 250 ML ONE (22:41)
--- NOTE | 2020-04-07 22:55 | NUR ---
Started 2nd unit of PRBCs, patient tolerated well x15 mins. Blood running in 20g IV right FA. Will continue to monitor.
[2020-04-08] VITALS (8 sets, daily range): BP systolic 96–132; BP diastolic 43–64
[2020-04-08 00:21] LABS: CREATINE KINASE MB 1.5 ng/mL (0-5.0)
--- NOTE | 2020-04-08 00:40 | NUR ---
BLOOD TRANSFUSION X1 UNIT PRBCs COMPLETED, PT TOLERATED WELL, NO KNOWN REACTIONS.
[2020-04-08 05:56] LABS: BASOPHILS % 0.6 % (0.0-1.0); EOSINOPHILS # (AUTO) 0.2 (0.0-0.4); EOSINOPHILS % 2.6 % (0.0-6.0); HEMATOCRIT 27.3 % (34.2-44.1); HEMOGLOBIN 8.3 g/dL (12.0-16.0); LYMPHOCYTES # (AUTO) 1.2 (1.0-3.2); LYMPHOCYTES % 17.4 % (18.0-39.1); MEAN CORPUSCULAR HGB CONC 30.4 g/dL (31-35); MEAN CORPUSCULAR VOLUME 105.4 fL (81-99); MONOCYTES # (AUTO) 0.8 (0.2-0.8); MONOCYTES % 11.5 % (4.4-11.3); NEUTROPHILS # (AUTO) 4.6 (2.1-6.9); NEUTROPHILS % 67.6 % (38.7-80.0); PLATELET COUNT 152 x10e3/uL (140-360); RED BLOOD COUNT 2.59 x10e6/uL (3.6-5.1)
[2020-04-08 06:34] LABS: ALBUMIN 2.5 g/dL (3.5-5.0); ALBUMIN/GLOBULIN RATIO 0.8 (0.8-2.0); ANION GAP 7.2 mmol/L (8-16); CALCIUM 8.5 mg/dL (8.4-10.2); CREATININE, SERUM 1.49 mg/dL (0.57-1.11); POTASSIUM 4.2 mmol/L (3.5-5.1)
--- NOTE | 2020-04-08 06:42 | NUR ---
RECEIVED BEDSIDE SHIFT REPORT FROM OFF GOING NURSE. PATIENT IS RESTING IN BED. CALL LIGHT WITHIN REACH. BED IN THE LOWEST POSITION. BED ALARM ON.
[2020-04-08 06:58] LABS: CREATINE KINASE MB 1.3 ng/mL (0-5.0)
[2020-04-08 07:56] LABS: ANISOCYTOSIS MODERATE; RBC MORPHOLOGY COMMENT ABNORMAL
[2020-04-08 07:57] LABS: OVALOCYTES FEW; PLATELET ESTIMATE ADEQUATE; PLATELET MORPHOLOGY COMMENT NORMAL; POLYCHROMASIA FEW
[2020-04-08] MEDS: INSULIN LISPRO 100 UNIT/1 ML 3ML VIAL SQ SCH ×4 (08:00→21:00)
[2020-04-08] MEDS: ISOSORBIDE MONONITRATE 30 MG TAB CR PO SCH (08:20)
[2020-04-08] MEDS: FUROSEMIDE 20 MG TAB PO SCH (08:20)
[2020-04-08] MEDS: PANTOPRAZOLE 40 MG 10ML VIAL IV SCH (08:20)
[2020-04-08] MEDS: FENOFIBRATE 160 MG TAB PO SCH (08:20)
[2020-04-08] MEDS: METOPROLOL SUCCINATE 25 MG TAB XL PO SCH (08:21)
[2020-04-08] MEDS ORDERED: LISINOPRIL 10 MG TAB PO SCH (09:00)
[2020-04-08] MEDS ORDERED: APIXABAN 5 MG TABLET PO SCH (09:00)
[2020-04-08] MEDS ORDERED: DOCUSATE SODIUM 100 MG CAP PO SCH (09:15)
--- NOTE | 2020-04-08 10:01 | Diagnostic Imaging Report ---
CT of the chest. Comparison: None Clinical History: Altered mental status Technique: Helical CT scan of the chest was performed from just above the thoracic inlet through the adrenal glands. Intravenous contrast administration was not utilized. Coronal and sagittal reconstructions were generated from the raw data. Multiple images were submitted for interpretation. This exam was performed according to our departmental dose-optimization program which includes automated exposure control, adjustment of the mA and/or kV according to patient size Discussion: Lung bob: Minimal subsegmental atelectasis adjacent to the left major fissure in the superior segment of the left lower lobe. Otherwise unremarkable. Central airways: Unremarkable Pleural spaces and pleura: Markable Pulmonary beronica: Normal Mediastinum: Scattered lymph nodes normal in size criteria. Cardiac chambers and pericardium: Cardiomegaly. Coronary artery calcification. Left subclavian route single-chamber pacemaker. Anemia suspected. Systemic great vessels: Patchy atherosclerotic calcification Central pulmonary vessels: Unremarkable Thyroid: Unremarkable Lymph nodes: As above Azygos vein: Unremarkable The esophagus: Normal. Thoracic duct: Unremarkable Osseous structures: Degenerative changes of the thoracic spine Upper abdomen: Unremarkable Body wall: Obesity Breasts: Unremarkable Axilla: Unremarkable Lower neck: Unremarkable. Impression: No significant disease on this exam. Signed by: Jerry Morse MD on 04/08/2020 9:57 AM
[2020-04-08] MEDS ORDERED: LACTULOSE SYRUP 20 GM/30 ML UDC PO ONE (10:15)
[2020-04-08] MEDS ORDERED: SODIUM CHLORIDE 0.9% 500ML 500 ML IV ONE (10:15)
--- NOTE | 2020-04-08 10:59 | Diagnostic Imaging Report ---
Abdominal Ultrasound limited. Clinical Diagnosis: Elevated LFTs. Acute kidney injury. Comparison: None Technique: Multiple transaxial and longitudinal images were obtained through the abdomen with real time ultrasonography. A low-frequency curvilinear transducer was utilized. Multiple images were submitted for interpretation. Report: Liver: The liver measures 14.1 cm in the right midaxillary line. There are no focal masses or abnormal cysts. The echogenicity is slightly increased. Gallbladder: Status post cholecystectomy Biliary tree: There is no evidence of intra or extra hepatic biliary ductal dilatation. The common bile duct measures 6 mm. Portal vein: The portal vein measures 10 mm. There is hepatopedal flow. Hepatic veins: Not visualized Pancreas: Not well-visualized. Ascites: Absent Pleural Effusion: Absent Right kidney: The right kidney measures 11.4 x 5.4 x 4.5 cm. Normal echogenicity. There is no evidence of hydronephrosis, mass, cyst. IVC/Aorta: Partially seen segments demonstrate no IVC abnormality. Aorta is not visualized. Impression: Limited abdominal ultrasound with decreased sensitivity because of the patient's body habitus and bowel gas interfering with satisfactory evaluation. There is suggestion of mild hepatic steatosis. The right kidney shows no hydronephrosis or calculi. Renal cortical echogenicity is normal. Signed by: Jerry Morse MD on 04/08/2020 10:55 AM
--- NOTE | 2020-04-08 13:11 | NUR ---
PATIENT OFF UNIT AT THIS TIME.
--- NOTE | 2020-04-08 13:57 | NUR ---
PATIENT BACK TO UNIT AT THIS TIME.
[2020-04-08] MEDS ORDERED: IOPAMIDOL 370 MG/ML 200 ML INFUS..BTL INJ ONE (13:58)
[2020-04-08] MEDS ORDERED: SODIUM CHLORIDE 0.9% 100 ML ONE (13:58)
[2020-04-08] MEDS ORDERED: SODIUM CHLORIDE 0.9% 250ML 250 ML IV ONE (14:30)
[2020-04-08 14:51] LABS: CHOL/HDL RATIO 4.7 (3.0-3.6)
[2020-04-08 15:52] LABS: % IRON SATURATION 15 % (15-50); IRON 62 ug/dL (50-170); TOTAL IRON BINDING CAPACITY 413 ug/dL (261-478); TRANSFERRIN 295 mg/dL (180-382)
--- NOTE | 2020-04-08 19:08 | NUR ---
BEDSIDE SHIFT REPORT GIVEN TO ONCOMING NURSE. PATIENT IS RESTING IN BED. NO ACUTE DISTRESS NOTED. CALL LIGHT WITHIN REACH. BED IN THE LOWEST POSITION.
--- NOTE | 2020-04-08 22:39 | Diagnostic Imaging Report ---
CTA NECK, CTA BRAIN HISTORY: Slurred speech COMPARISON: Head CT 04/07/2020 TECHNIQUE: CTA of the head and neck was performed with intravenous iodine based contrast. Coronal, sagittal, 3-D, and oblique maximum intensity projection reformations were created. One or more of the following dose reduction techniques were used: Automated exposure control, adjustment of the mA and/or kV according to patient size, and/or utilization of iterative reconstruction technique. DISCUSSION: If present, any cervical carotid stenosis will be measured as a percentage relative to the [place] artery distal to the stenosis (NASCET). Streak artifacts obscure some details. CERVICAL CTA: There are mild calcifications in the aortic arch without significant stenosis. Right Carotid: Mild calcified plaque at the right carotid bulb does not cause significant stenosis. The right common carotid artery has a slight retropharyngeal course. Left Carotid: Mild calcified plaque at the left carotid bulb causes less than 50% focal stenosis in the proximal cervical left internal carotid artery. The left common carotid artery also has a slight retropharyngeal course. Right vertebral artery: Diffusely hypoplastic (the right transverse foramina are small), but grossly patent. Left vertebral artery: Patent, no abnormalities. INTRACRANIAL CTA: Carotid arteries: Diffuse calcified plaque in the bilateral carotid siphons does not cause significant stenosis. No abnormalities in the A1 or M1 segments. Vertebrobasilar Circulation: Right vertebral artery: Patent, no abnormalities. Left vertebral artery: Mild calcified plaque in the left V4 segment does not cause significant stenosis. Basilar artery: Patent, no abnormalities. Posterior cerebral arteries: Patent, no abnormalities. Normal Variants: ACom: Patent. PComs: Patent. Vertebral arteries: Left dominant. The right vertebral artery terminates as the right posterior inferior cerebellar artery. The major dural venous sinuses are grossly patent. Additional findings: Bilateral ocular lens replacement. There is mild mosaic attenuation in the upper lungs. Enlarged pulmonary artery suggests pulmonary hypertension. Single lead cardiac device in the left upper chest wall is noted. There are mild degenerative changes throughout the spine. IMPRESSION: 1. Mild bilateral carotid bulb calcified plaque without significant stenosis. 2. Bilateral carotid siphon and left vertebral artery V4 segment calcified plaque without significant stenosis. 3. No other cervical or intracranial CTA abnormalities. 4. The right vertebral artery is diffusely hypoplastic, which is within normal variation. Signed by: Dr. Sandoval Gonzalez M.D. on 04/08/2020 10:35 PM
[2020-04-09] VITALS: BP 111/68
[2020-04-09] MEDS ORDERED: PHYTONADIONE 10 MG/ML AMP SC ONE (00:45)
--- NOTE | 2020-04-09 01:41 | NUR ---
PER DR Miranda OLSON PATIENT TO RECEIVE VITAMIN K FOR PROLONGED PTT, VITAMIN K GIVEN SC, PATIENT TOLERATED WELL
--- NOTE | 2020-04-09 03:00 | NUR ---
VITAMIN K GIVEN SQ PATIENT TOLERATED WELL, RLQ ABDOMEN, DISCOLORATION BAND AROUND LOWER ABDOMEN NOTED, PT STATES "I DIDNT KNOW THAT WAS LIKE THAT I CANT SEE IT"
[2020-04-09 04:00] VITALS: BP 108/49
[2020-04-09 05:48] VITALS: BP 108/49
[2020-04-09 05:49] VITALS: BP 108/49
[2020-04-09 06:01] LABS: BASOPHILS % 0.7 % (0.0-1.0); EOSINOPHILS # (AUTO) 0.3 (0.0-0.4); EOSINOPHILS % 5.9 % (0.0-6.0); HEMOGLOBIN 8.2 g/dL (12.0-16.0); LYMPHOCYTES # (AUTO) 1.2 (1.0-3.2); LYMPHOCYTES % 26.7 % (18.0-39.1); MEAN CORPUSCULAR HEMOGLOBIN 32.2 pg (28-32); MEAN CORPUSCULAR HGB CONC 30.4 g/dL (31-35); MEAN CORPUSCULAR VOLUME 105.9 fL (81-99); MONOCYTES # (AUTO) 0.7 (0.2-0.8); MONOCYTES % 15.7 % (4.4-11.3); NEUTROPHILS # (AUTO) 2.2 (2.1-6.9); NEUTROPHILS % 50.8 % (38.7-80.0); PLATELET COUNT 133 x10e3/uL (140-360); RED BLOOD COUNT 2.55 x10e6/uL (3.6-5.1); RED CELL DISTRIBUTION WIDTH 21.6 % (11.7-14.4)
[2020-04-09 06:28] LABS: ALBUMIN 2.4 g/dL (3.5-5.0); ALBUMIN/GLOBULIN RATIO 0.8 (0.8-2.0); ANION GAP 8.9 mmol/L (8-16); CALCIUM 8.3 mg/dL (8.4-10.2); CREATININE, SERUM 1.23 mg/dL (0.57-1.11); POTASSIUM 3.9 mmol/L (3.5-5.1)
--- NOTE | 2020-04-09 06:53 | NUR ---
BSSR GIVEN TO ONCOMING SHIFT PATIENT PENDING EGD TODAY, NPO, CONSENT IN CHART, STABLE, AM LABS COMPLETED
[2020-04-09] MEDS: INSULIN LISPRO 100 UNIT/1 ML 3ML VIAL SQ SCH ×2 (07:30→11:30)
[2020-04-09 07:51] VITALS: BP 116/61
[2020-04-09] MEDS: PANTOPRAZOLE 40 MG 10ML VIAL IV SCH (08:52)
[2020-04-09] MEDS: FUROSEMIDE 20 MG TAB PO SCH (08:53)
[2020-04-09] MEDS: METOPROLOL SUCCINATE 25 MG TAB XL PO SCH (08:54)
[2020-04-09] MEDS: ISOSORBIDE MONONITRATE 30 MG TAB CR PO SCH (08:58)
[2020-04-09] MEDS: FENOFIBRATE 160 MG TAB PO SCH (09:00)
[2020-04-09] MEDS ORDERED: PANTOPRAZOLE SO40 MG PO (10:43)
[2020-04-09] MEDS ORDERED: PHYTONADIONE 10MG/ML 10 MG in SODIUM CHLORIDE 0.9% 50ML 50 ML IV NR (11:15)
[2020-04-09 12:00] LABS: INR 1.63; PROTHROMBIN TIME 20.5 seconds (11.9-14.5)
[2020-04-09] MEDS ORDERED: PEG (High)/E-LYTE SOLN 4,000 ML BTL PO NR (12:00)
[2020-04-09 12:10] VITALS: BP 93/46
--- NOTE | 2020-04-09 14:40 | NUR ---
PT DISCHARGED HOME WITH INSTRUCTIONS TO FOLLOW UP WITH PCP, IV SITE REMOVED NO SWELLING NO REDNESS TO SITE.
--- NOTE | 2020-04-09 15:43 | NUR ---
CALL TO PT'S DTR; GREGORIO @ [phone]. DISCUSSED HOME HEALTH OPTIONS. STATES SHE WOULD LIKE TO USE A COMPANY IN NETWORK W THE PT'S INSURANCE. BETH JACKSON, SIGNATURE REFERRAL FAXED TO [facility] @ OFF: [phone] / FAX: [phone]. PT INQUIRED ABOUT A NURSE AT NIGHT FOR HER MOTHER. INFORMED THAT WOULD BE AN OUT OF POCKET COST. DISCUSSED INCREASING HER PROVIDER HOURS. STATES HER DTR IS THE PT'S PROVIDER. THEY WILL SPEAK W THE AGENCY. DISCUSSED [facility] BEING USED A SC. STATES THEY HAVE A TTB. INFORMED THE DTR. I REQUESTED THE AGENCY ASSESS THE SHOWER / BATH FOR THE APPROPRIATE DME. VERBALIZED UNDERSTANDING.
[2020-04-09] MEDS ORDERED: LIDOCAINE HCL 2% LOCAL INJ 5 ML SDV VIAL INJ ONE (18:55)
[2020-04-09] MEDS ORDERED: PROPOFOL IV EMULSION 10 MG/ML 20 ML VIAL ONE (18:55)
--- NOTE | 2020-04-10 12:48 | NUR ---
CALL RECEIVED FROM [facility] STATING THEY DID NOT HAVE THE STAFF TO COVER THE PT'S AREA. REFERRAL WAS FAXED TO [facility] THIS AM @ OFF: [phone] / FAX: [phone]. SPOKE Santa CHAMBERLAIN. COVID TEST SENT. RECEIVED CONFIRMATION FROM [facility] THE PT WAS ACCEPTED AND WILL CALL TO SCHEDULE INITIAL VISIT.
== END 2020-04-09 14:47 | disposition home or self-care (01) | DRG 441 ==
LOC: ER 11:26 → ERHOLD 13:13 → MED/SURG3 14:44
PROVIDERS: ADMIT Internal Medicine; ATTEND Internal Medicine
PROC: 30233N1 Transfusion of Nonautologous Red Blood Cells into Peripheral Vein, Percutaneous Approach (ICD-10-PCS; 2020-04-07)
PROC: 0DB68ZX Excision of Stomach, Via Natural or Artificial Opening Endoscopic, Diagnostic (ICD-10-PCS; principal; 2020-04-09 10:43)
PROC: 0D568ZZ Destruction of Stomach, Via Natural or Artificial Opening Endoscopic (ICD-10-PCS; 2020-04-09 10:43)
DX: K72.90 Hepatic failure, unspecified without coma (principal); K55.21 Angiodysplasia of colon with hemorrhage; E87.0 Hyperosmolality and hypernatremia; I48.20 Chronic atrial fibrillation, unspecified; D62 Acute posthemorrhagic anemia; N28.9 Disorder of kidney and ureter, unspecified; D53.9 Nutritional anemia, unspecified; I10 Essential (primary) hypertension; E11.9 Type 2 diabetes mellitus without complications; E03.9 Hypothyroidism, unspecified; Z87.440 Personal history of urinary (tract) infections; E78.5 Hyperlipidemia, unspecified; Z95.810 Presence of automatic (implantable) cardiac defibrillator; Z83.3 Family history of diabetes mellitus; Z82.3 Family history of stroke; Z88.8 Allergy status to other drugs, medicaments and biological substances; R47.81 Slurred speech; K29.70 Gastritis, unspecified, without bleeding; Z11.59 Encounter for screening for other viral diseases
CPT/HCPCS: 36415; 43239; 43270; 70450; 70496; 70498; 71045; 71250; 76705; 80053; 80061; 80307; 81001; 82140; 82270; 82550; 82553; 82607; 82746; 82948; 83036; 83540; 83605; 83735; 84436; 84443; 84466; 84479; 84484; 85025; 85045; 85610; 85730; 86850; 86900; 86920; 87040; 87086; 87635; 88305; 88312; 93005; 97139; 99284; J2001; J3430; J7030; J7040; J7050; P9016; Q9967

== ENCOUNTER 2020-04-19 21:17 | Emergency (ER) | payer MEDICARE, OTHER ==
[~2020-04-19] VITALS: Ht 165.1 cm; Wt 103.4 kg
[~2020-04-19 21:17] MED LIST changes: +B12 ACTIVE1000 MCG PO; +ELIQUIS5 M1 PO; +FENOFIBRATE145 MG PO; +IRON PO; +ISOSORBIDE MONO30 MG PO; +LASIX20 MG PO; +LISINOPRIL10 MG PO; +MECLIZINE HCL12.5 MG PO; +METOPROLOL SUCC25 MG PO; +PANTOPRAZOLE SO40 MG PO
[2020-04-19] MEDS ORDERED: HYDROCODONE/APAP 10MG-325MG TAB PO ONE (22:15)
--- NOTE | 2020-04-19 23:52 | Diagnostic Imaging Report ---
THORACIC SP 3V, SP LUMBAR, COMPLETE MIN 4VW - 3 views HISTORY: Pain. COMPARISON: None available. FINDINGS: Normal thoracic kyphosis. No vertebral body height loss. No thoracic scoliosis. Mild multilevel thoracic degenerative disc disease. Leftward curvature of the lumbar spine. No lumbar vertebral body height loss. Minimal anterolisthesis of L4 on L5. Moderate degenerative disc disease at L2-L3, L3-L4, L4-L5, and L5-S1. Advanced facet arthrosis at L4-L5 and L5-S1. Advanced right hip arthrosis. Aortic vascular calcifications. IMPRESSION: Multilevel thoracolumbar degenerative change. No acute osseous abnormality. Signed by: Branden Ring MD on 04/19/2020 11:49 PM
[2020-04-20] MEDS ORDERED: ULTRAM50 MG PO (01:00)
--- NOTE | 2020-04-20 01:43 | Emergency Department Note ---
History of Present Illnes History of Present Illness Chief Complaint: General Medicine Complaints History of Present Illness This is a 74 year old female arrives to the ED after sustaining a mechanical fall complaining of back pain, denies any numbness or weakness in the extremities Chief Complaint Comment 74 Y/O FEMALE PT AAOX3 PRESENTS TO THE ER VIA EMS FROM HOME S/P FALL X30 MINUTES NEWS LIBRARIAN; PT ONLY REPORTS BACK PAIN; PT STATES SHE WAS USING HER WALKER AND ATTEMPTING TO GO UP A STAIR AND FELL BACK; PT REPORTS SON CAUGHT HER AND ASSISTED HER TO THE GROUND; PT DENIES LOC OR HITTING HEAD; PT CURRENTLY TAKING BLOOD THINNERS; NAD NOTED AT THIS TIME; RESP EVEN/UNLABORED; PT ATTACHED TO NUTRITION TEACHER. 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 Arrival Mode: Car Onset (how long ago): hour(s) Radiation: Reports back Timing of current episode: intermittent Progression: unchanged Chronicity: new Past Medical/Family History Physician Review I have reviewed the patient's past medical and family history. Any updates have been documented here. Past Medical History Recent Fever: No Clinical Suspicion of Infectio: No New/Unexplained Change in Ment: No Past Medical History: Hypertension, Diabetes, A-Fib, Hypothyroidism, Cancer, UTI's, Hyperlipedemia Other Medical History: VIRTIGO ACUTE RENAL INSUFFICIENCY Past Surgical History: Hysterectomy, Pacer/AICD, Cataract Removal Other Surgery: HYST PACER/DEFIB CATARACTS/GLAUCOMA Social History Smoking Cessation: Never Smoker Alcohol Use: None Any Illegal Drug Use: No Other Last Tetanus: UNK Any Pre-Existing Lines (PICC,: No Review of Systems Review of Systems Constitutional: Reports no symptoms EENTM: Reports no symptoms Cardiovascular: Reports no symptoms Respiratory: Reports no symptoms Gastrointestinal: Reports no symptoms Genitourinary: Reports no symptoms Musculoskeletal: Reports as per HPI, Reports back pain Integumentary: Reports no symptoms Neurological: Reports no symptoms Psychological: Reports no symptoms Endocrine: Reports no symptoms Hematological/Lymphatic: Reports no symptoms Physical Exam Related Data Allergies: Uncoded Allergies: STEROIDS (Allergy, Unknown, 11/10/18) Triage Vital Signs Vital Signs Date Time Temp Pulse Resp B/P (MAP) Pulse Ox O2 Delivery O2 Flow Rate FiO2 04/19/20 21:20 97.8 89 20 106/45 100 Room Air Vital signs reviewed: Yes Physical Exam CONSTITUTIONAL Constitutional: Present well-developed, Present well-nourished HENT HENT: Present normocephalic, Present atraumatic, Present oropharynx clear/moist, Present nose normal HENT L/R: Present left ext ear normal, Present right ext ear normal EYES Eyes: Reports PERRL, Reports conjunctivae normal NECK Neck: Present ROM normal PULMONARY Pulmonary: Present effort normal, Present breath sounds normal CARDIOVASCULAR Cardiovascular: Present regular rhythm, Present heart sounds normal, Present c apillary refill normal, Present normal rate GASTROINTESTINAL Abdominal: Present soft, Present nontender, Present bowel sounds normal GENITOURINARY Genitourinary: Present exam deferred SKIN Skin: Present warm, Present dry MUSCULOSKELETAL Musculoskeletal: Present ROM normal NEUROLOGICAL Neurological: Present alert, Present oriented x 3, Present no gross motor or sensory deficits PSYCHOLOGICAL Psychological: Present mood/affect normal, Present judgement normal Results Imaging Imaging results reviewed: Yes Assessment & Plan Medical Decision Making MDM 74-year-old female arrives the ED with complaints of back pain after having a mechanical fall. Pt's imaging normal- ambulatory with a steady gait Assessment & Plan Final Impression: (1) Back pain Depart Disposition: HOME, SELF-CARE Last Vital Signs Date Time Temp Pulse Resp B/P (MAP) Pulse Ox O2 Delivery O2 Flow Rate FiO2 04/19/20 22:47 97.8 91 14 109/55 97 04/19/20 21:20 Room Air Home Meds Active Scripts Pantoprazole Sodium* (PROTONIX) 40 Mg Tablet.dr, 40 MG PO ACB for 30 Days, TAB Prov:LAWANDA COOK NATIONAL SALES EXECUTIVE 04/09/20 Reported Medications Meclizine Hcl (MECLIZINE HCL) 12.5 Mg Tablet, 25 MG PO DAILY, TAB 04/07/20 Lisinopril (LISINOPRIL) 10 Mg Tablet, 20 MG PO DAILY, #30 TAB 04/07/20 Furosemide (LASIX) 20 Mg Tablet, 20 MG PO DAILY, #30 TAB 04/07/20 Metoprolol Succinate (METOPROLOL SUCCINATE) 25 Mg Tab.er.24h, 1 TAB PO DAILY 04/07/20 Apixaban (Eliquis) 5 Mg Tab.ds.pk, 1 TAB PO BID 04/07/20 Fenofibrate Nanocrystallized (FENOFIBRATE) 145 Mg Tablet, 160 MG PO DAILY 04/07/20 Isosorbide Mononitrate (ISOSORBIDE MONONITRATE ER) 30 Mg Tab.er.24h, 30 MG PO DAILY, #30 TAB 04/07/20 [Iron] No Conflict Check, 65 MG PO DAILY 04/07/20 Mecobalamin (B12 Active) 1,000 Mcg Tab.chew, 1 TAB PO DAILY 04/07/20 Medications in the ED Acetaminophen/ Hydrocodone Bitart 1 ea ONCE ONCE PO Last administered on 04/19/20at 23:38; Admin Dose 1 EA; Start 04/19/20 at 22:15; Stop 04/19/20 at 22:27; Status DC SHANKAR NEWMAN, Apr 20, 2020 01:43
[2020-04-20] MEDS ORDERED: LEVOTHYROXINE88 MCG PO (21:53)
[2020-04-21] MEDS ORDERED: PANTOPRAZOLE SO40 MG PO (09:06)
[2020-04-21] MEDS ORDERED: MECLIZINE HCL12.5 MG PO (09:06)
[2020-04-21] MEDS ORDERED: ASCORBIC ACID500 MG PO (09:06)
[2020-04-21] MEDS ORDERED: CEFDINIR300 MG PO (09:06)
[2020-04-21] MEDS ORDERED: FERROUS SULFAT325 MG PO (09:06)
[2020-04-21] MEDS ORDERED: LACTULOSE20 GM/30 M PO (09:12)
== END 2020-04-20 01:31 | disposition home or self-care (01) ==
LOC: ER 23:00
DX: M54.6 Pain in thoracic spine (principal); M54.5 Low back pain; W01.0XXA Fall on same level from slipping, tripping and stumbling without subsequent striking against object, initial encounter; Y93.01 Activity, walking, marching and hiking; Y92.008 Other place in unspecified non-institutional (private) residence as the place of occurrence of the external cause; I10 Essential (primary) hypertension; E11.9 Type 2 diabetes mellitus without complications; E78.5 Hyperlipidemia, unspecified; I48.91 Unspecified atrial fibrillation; E03.9 Hypothyroidism, unspecified; Z11.59 Encounter for screening for other viral diseases; Z95.810 Presence of automatic (implantable) cardiac defibrillator
CPT/HCPCS: 72072; 72110; 99284

== ENCOUNTER 2020-04-20 12:51 | Inpatient (IN) | payer MEDICARE, OTHER ==
[~2020-04-20] VITALS: Ht 165.1 cm; Wt 103.4 kg
[~2020-04-20 12:51] MED LIST changes: +ULTRAM50 MG PO
[2020-04-20 14:05] LABS: BASOPHILS % 0.8 % (0.0-1.0); EOSINOPHILS # (AUTO) 0.2 (0.0-0.4); EOSINOPHILS % 4.1 % (0.0-6.0); HEMATOCRIT 23.5 % (34.2-44.1); LYMPHOCYTES # (AUTO) 1.1 (1.0-3.2); LYMPHOCYTES % 22.2 % (18.0-39.1); MEAN CORPUSCULAR HEMOGLOBIN 32.1 pg (28-32); MEAN CORPUSCULAR HGB CONC 29.8 g/dL (31-35); MEAN CORPUSCULAR VOLUME 107.8 fL (81-99); MONOCYTES # (AUTO) 0.7 (0.2-0.8); MONOCYTES % 12.9 % (4.4-11.3); NEUTROPHILS % 59.4 % (38.7-80.0); PLATELET COUNT 143 x10e3/uL (140-360); RED BLOOD COUNT 2.18 x10e6/uL (3.6-5.1); RED CELL DISTRIBUTION WIDTH 18.7 % (11.7-14.4)
[2020-04-20 14:11] LABS: INR 2.79; PROTHROMBIN TIME 31.6 seconds (11.9-14.5)
[2020-04-20 14:12] LABS: PARTIAL THROMBOPLASTIN TIME 43.6 seconds (23.8-35.5)
--- NOTE | 2020-04-20 14:14 | Diagnostic Imaging Report ---
EXAMINATION: CHEST SINGLE (PORTABLE) INDICATION: ^SOB, AMS ^[id number] ^[id number] COMPARISON: CT chest 04/08/2020 FINDINGS: AP view TUBES and LINES: The pacemaker is intact. The distal lead is not well visualized. Otherwise incorrect position on CT from 04/08/2020. LUNGS: Lungs are well inflated. Minimal atelectasis in both lung bases. There is no evidence of pneumonia or pulmonary edema. PLEURA: No pleural effusion or pneumothorax. HEART AND MEDIASTINUM: The cardiomediastinal silhouette is unremarkable.. BONES AND SOFT TISSUES: No acute osseous lesion. Soft tissues are unremarkable. UPPER ABDOMEN: No free air under the diaphragm. IMPRESSION: No acute thoracic abnormality. Minimal bibasilar atelectasis. Signed by: Dr. Tatiana Villeda M.D. on 04/20/2020 2:10 PM
[2020-04-20 14:22] LABS: ALBUMIN 2.4 g/dL (3.5-5.0); ALBUMIN/GLOBULIN RATIO 0.7 (0.8-2.0); ANION GAP 11.7 mmol/L (8-16); CALCIUM 8.3 mg/dL (8.4-10.2); CLARITY,URINE SL CLOUDY (CLEAR); COLOR,URINE YELLOW (YELLOW); CREATININE, SERUM 1.78 mg/dL (0.57-1.11); MAGNESIUM 2.1 MG/DL (1.3-2.1); POTASSIUM 3.7 mmol/L (3.5-5.1)
[2020-04-20 14:23] LABS: LEUKOCYTE ESTERASE ,URINE SMALL (NEGATIVE); NITRITE,URINE NEGATIVE (NEGATIVE)
[2020-04-20 14:24] LABS: BILIRUBIN,URINE SMALL (NEGATIVE); KETONES,URINE TRACE (NEGATIVE); PROTEIN,URINE DIPSTICK 2+ (NEGATIVE); URINE UROBILINOGEN 1 mg/dL (0.2 - 1)
[2020-04-20 14:28] LABS: CREATINE KINASE MB 1.4 ng/mL (0-5.0)
[2020-04-20 14:39] LABS: B-TYPE NATRIURETIC PEPTIDE2 205.9 pg/mL (0-100)
[2020-04-20 14:40] LABS: BACTERIA,URINE RARE /HPF; EPITHELIAL CELLS,URINE FEW /LPF; RBC,URINE 21-50 /HPF (0-5); WBC,URINE (MAN) >50 /HPF (0-5)
--- NOTE | 2020-04-20 14:50 | Diagnostic Imaging Report ---
EXAMINATION: Head CT HISTORY: AMS. COMPARISON: Head CT 04/08/20. TECHNIQUE: Helical axial images of the head were obtained. Reformatted coronal and sagittal images from the axial data. Dose modulation, iterative reconstruction, and/or weight based adjustment of the mA/kV was utilized to reduce the radiation dose to as low as reasonably achievable. Image quality: Motion/streaking artifact limits the evaluation of the skull base and posterior cranial fossa. FINDINGS: Parenchyma: 1. Moderate supratentorial white matter small vessel ischemic changes. 2. No mass or hemorrhage. No CT evidence of acute territorial vascular insult. Extra-axial spaces:No abnormal density. No extra-axial fluid collections Brain volume: Mild generalized volume loss. Ventricles: No hydrocephalus or displacement. Arteries: No density suggestive of thrombus. Dural sinuses: No abnormal density. Foramen magnum: No mass, Chiari malformation, or basilar invagination. Sella: No obvious mass. Paranasal/mastoid sinuses: Imaged portions unremarkable. Skull/Scalp: No lytic or blastic lesions. No fractures. IMPRESSION: 1. No acute abnormalities. 2. Moderate chronic small vessel ischemic changes, stable compared to head CT of 04/07/20. Signed by: Dr. Kiki Love M.D. on 04/20/2020 2:46 PM
--- NOTE | 2020-04-20 15:40 | Diagnostic Imaging Report ---
EXAMINATION: CT of the cervical spine HISTORY: Fall, AMS COMPARISON: None available TECHNIQUE: Multidetector helical axial images were obtained without contrast from the foramen magnum to T1. The images were reconstructed using bone and soft tissue algorithms and were viewed in axial, sagittal and coronal planes. Dose modulation, iterative reconstruction, and/or weight based adjustment of the mA/kV was utilized to reduce the radiation dose to as low as reasonably achievable. FINDINGS: Alignment: Normal alignment and lordosis Soft tissues: Normal Vertebrae: Normal height and density. No acute fracture, infection or neoplasm. Degenerative changes: No significant degenerative changes, no spinal canal or foraminal stenosis. IMPRESSION: No acute cervical spine postraumatic abnormalities. Note: Acute postraumatic spinal cord, vascular or ligamentous injuries cannot adequately be assessed by CT. Signed by: Dr. Kiki Love M.D. on 04/20/2020 3:36 PM
[2020-04-20] MEDS ORDERED: DEXTROSE 5% 1,000 ML IV ONE (16:00)
[2020-04-20] MEDS ORDERED: SODIUM CHLORIDE 0.9% 250ML 250 ML IV ONE (16:00)
--- NOTE | 2020-04-20 16:21 | Emergency Department Note ---
History of Present Illnes History of Present Illness Chief Complaint: General Medicine Complaints History of Present Illness This is a 74 year old female CALL EMS FOR AMS, PT AWAKE AND ALERT AND C/O SOB. FM ON SCENE WANTS PT CHECKED FOR GI??. PT YESTERDAY SEEN FOR BACK PAIN AFTER FALLING WHILE WALKING AND HER SON CAUGHT HER AND ASST HER TO GROUND. PT WAS ON HER WAY TO ER FOR AMS AND SOB YESTERDAY PER FM. 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, Microfilming Document Preparer/EMS Arrival Mode: [facility] Treatment BLOCKER HAND: IV, EKG, See EMS Report Additional Treatment BLOCKER HAND: FROM HOME/20G LAC Software Engineering Project Manager Required: No Onset (how long ago): day(s) Radiation: Reports non-radiation Severity: moderate Onset quality: gradual Timing of current episode: constant Progression: waxing and waning Chronicity: recurrent Context: Reports recent illness (RECENTLY ADMITTED HERE FOR SIMILAR PRESENTATION, ALSO HERE YESTERDAY FOR AMS AND FALL) Relieving factors: none Exacerbating factors: none Associated symptoms: Reports confusion Treatments prior to arrival: none Past Medical/Family History Physician Review I have reviewed the patient's past medical and family history. Any updates have been documented here. Past Medical History Recent Fever: No Clinical Suspicion of Infectio: No New/Unexplained Change in Ment: No Past Medical History: Hypertension, Diabetes, A-Fib, Hypothyroidism, Cancer, UTI's, Hyperlipedemia Other Medical History: VIRTIGO ACUTE RENAL INSUFFICIENCY Past Surgical History: Hysterectomy, Pacer/AICD, Cataract Removal Other Surgery: HYST PACER/DEFIB CATARACTS/GLAUCOMA Social History Smoking Cessation: Unknown if ever smoked Counseling Performed: No Alcohol Use: None Any Illegal Drug Use: No Other Last Tetanus: UNK Any Pre-Existing Lines (PICC,: Yes (piv) Review of Systems Review of Systems Constitutional: Reports weakness EENTM: Reports no symptoms Cardiovascular: Reports no symptoms Respiratory: Reports no symptoms Gastrointestinal: Reports no symptoms Genitourinary: Reports no symptoms Musculoskeletal: Reports no symptoms Integumentary: Reports no symptoms Neurological: Reports as per HPI, Reports weakness Psychological: Reports no symptoms Endocrine: Reports no symptoms Hematological/Lymphatic: Reports no symptoms Physical Exam Related Data Allergies: Uncoded Allergies: STEROIDS (Allergy, Unknown, 11/10/18) Triage Vital Signs Vital Signs Date Time Temp Pulse Resp B/P (MAP) Pulse Ox O2 Delivery O2 Flow Rate FiO2 04/20/20 12:52 98.9 117 20 146/86 96 Room Air Vital signs reviewed: Yes Physical Exam CONSTITUTIONAL Constitutional: Present well-nourished, Present obese HENT HENT: Present normocephalic, Present atraumatic, Present oropharynx clear/moist, Present nose normal HENT L/R: Present left ext ear normal, Present right ext ear normal EYES Eyes: Reports PERRL, Reports conjunctivae normal NECK Neck: Present ROM normal PULMONARY Pulmonary: Present effort normal, Present breath sounds normal CARDIOVASCULAR Cardiovascular: Present regular rhythm, Present heart sounds normal, Present capillary refill normal, Present normal rate GASTROINTESTINAL Abdominal: Present soft, Present nontender, Present bowel sounds normal GENITOURINARY Genitourinary: Present exam deferred SKIN Skin: Present warm, Present dry MUSCULOSKELETAL Musculoskeletal: Present ROM normal NEUROLOGICAL Neurological: Present alert (SOMNOLENT BUT AROUSABLE), Present DTRs normal, Present no gross motor or sensory deficits, Present other (ORIENTED TO NAME ONLY, POSITIVE ASTERIXIS) PSYCHOLOGICAL Psychological: Present mood/affect normal, Present judgement normal Results Laboratory Result Diagram: 04/20/20 1300 04/20/20 1300 Laboratory Laboratory Tests Test 04/20/20 13:00 White Blood Count 5.10 x10e3/uL (4.8-10.8) Red Blood Count 2.18 x10e6/uL (3.6-5.1) Hemoglobin 7.0 g/dL (12.0-16.0) Hematocrit 23.5 % (34.2-44.1) Mean Corpuscular Volume 107.8 fL (81-99) Mean Corpuscular Hemoglobin 32.1 pg (28-32) Mean Corpuscular Hemoglobin Concent 29.8 g/dL (31-35) Red Cell Distribution Width 18.7 % (11.7-14.4) Platelet Count 143 x10e3/uL (140-360) Neutrophils (%) (Auto) 59.4 % (38.7-80.0) Lymphocytes (%) (Auto) 22.2 % (18.0-39.1) Monocytes (%) (Auto) 12.9 % (4.4-11.3) Eosinophils (%) (Auto) 4.1 % (0.0-6.0) Basophils (%) (Auto) 0.8 % (0.0-1.0) Neutrophils # (Auto) 3.0 (2.1-6.9) Lymphocytes # (Auto) 1.1 (1.0-3.2) Monocytes # (Auto) 0.7 (0.2-0.8) Eosinophils # (Auto) 0.2 (0.0-0.4) Basophils # (Auto) 0.0 (0.0-0.1) Absolute Immature Granulocyte (auto 0.03 x10e3/uL (0-0.1) Prothrombin Time 31.6 seconds (11.9-14.5) Prothromb Time International Ratio 2.79 Activated Partial Thromboplast Time 43.6 seconds (23.8-35.5) Urine Color Yellow (YELLOW) Urine Clarity Sl cloudy (CLEAR) Urine pH 5.5 (5 - 7) Urine Specific [place] 1.025 (1.010-1.025) Urine Protein 2+ (NEGATIVE) Urine Glucose (UA) Negative (NEGATIVE) Urine Ketones Trace (NEGATIVE) Urine Blood Large (NEGATIVE) Urine Nitrite Negative (NEGATIVE) Urine Bilirubin Small (NEGATIVE) Urine Urobilinogen 1 mg/dL (0.2 - 1) Urine Leukocyte Esterase Small (NEGATIVE) Urine RBC 21-50 /HPF (0-5) Urine WBC >50 /HPF (0-5) Urine Epithelial Cells Few /LPF (NONE) Urine Bacteria Rare /HPF (NONE) Sodium Level 151 mmol/L (136-145) Potassium Level 3.7 mmol/L (3.5-5.1) Chloride Level 117 mmol/L (98-107) Carbon Dioxide Level 26 mmol/L (22-29) Anion Gap 11.7 mmol/L (8-16) Blood Urea Nitrogen 48 mg/dL (7-26) Creatinine 1.78 mg/dL (0.57-1.11) Estimat Glomerular Filtration Rate 28 ML/MIN (60-) BUN/Creatinine Ratio 27 (6-25) Glucose Level 124 mg/dL (74-118) Lactic Acid Level 1.7 mmol/L (0.5-2.0) Calcium Level 8.3 mg/dL (8.4-10.2) Magnesium Level 2.1 MG/DL (1.3-2.1) Total Bilirubin 1.4 mg/dL (0.2-1.2) Aspartate Amino Transf (AST/SGOT) 35 IU/L (5-34) Alanine Aminotransferase (ALT/SGPT) 17 IU/L (0-55) Alkaline Phosphatase 142 IU/L (40-150) Ammonia 150 UG/DL (31-123) Creatine Kinase 51 IU/L (29-168) Creatine Kinase MB 1.40 ng/mL (0-5.0) Troponin I 0.013 ng/mL (0-0.300) B-Type Natriuretic Peptide 205.9 pg/mL (0-100) Total Protein 5.7 g/dL (6.5-8.1) Albumin 2.4 g/dL (3.5-5.0) Globulin 3.3 g/dL (2.3-3.5) Albumin/Globulin Ratio 0.7 (0.8-2.0) Lab results reviewed: Yes Imaging Imaging results reviewed: Yes Impressions EXAMINATION: Head CT HISTORY: AMS. COMPARISON: Head CT 04/08/20. TECHNIQUE: Helical axial images of the head were obtained. Reformatted coronal and sagittal images from the axial data. Dose modulation, iterative reconstruction, and/or weight based adjustment of the mA/kV was utilized to reduce the radiation dose to as low as reasonably achievable. Image quality: Motion/streaking artifact limits the evaluation of the skull base and posterior cranial fossa. FINDINGS: Parenchyma: 1. Moderate supratentorial white matter small vessel ischemic changes. 2. No mass or hemorrhage. No CT evidence of acute territorial vascular insult. Extra-axial spaces:No abnormal density. No extra-axial fluid collections Brain volume: Mild generalized volume loss. Ventricles: No hydrocephalus or displacement. Arteries: No density suggestive of thrombus. Dural sinuses: No abnormal density. Foramen magnum: No mass, Chiari malformation, or basilar invagination. Sella: No obvious mass. Paranasal/mastoid sinuses: Imaged portions unremarkable. Skull/Scalp: No lytic or blastic lesions. No fractures. IMPRESSION: 1. No acute abnormalities. 2. Moderate chronic small vessel ischemic changes, stable compared to head CT of 04/07/20. Signed by: Dr. Kiki Love M.D. on 04/20/2020 2:46 PM EXAMINATION: CHEST SINGLE (PORTABLE) INDICATION: ^SOB, AMS ^[id number] ^1350 COMPARISON: CT chest 04/08/2020 FINDINGS: AP view TUBES and LINES: The pacemaker is intact. The distal lead is not well visualized. Otherwise incorrect position on CT from 04/08/2020. LUNGS: Lungs are well inflated. Minimal atelectasis in both lung bases. There is no evidence of pneumonia or pulmonary edema. PLEURA: No pleural effusion or pneumothorax. HEART AND MEDIASTINUM: The cardiomediastinal silhouette is unremarkable.. BONES AND SOFT TISSUES: No acute osseous lesion. Soft tissues are unremarkable. UPPER ABDOMEN: No free air under the diaphragm. IMPRESSION: No acute thoracic abnormality. Minimal bibasilar atelectasis. Signed by: Dr. Tatiana Villeda M.D. on 04/20/2020 2:10 PM Procedures 12 Lead ECG Interpretation ECG Interpretation : ECG: ECG 1 Software Engineering Project Manager: Interpreted by ED physician Date: Apr 20, 2020 Time: 13:05 Rhythm: atrial fibrillation (WITH RVR RATE 104) Rate: tachycardia (104) QRS axis: right Conduction: right bundle branch block ST segments normal: Yes T wave inversion: III, V1, V2, V3 T waves flattening: aVF, V4, V5, V6 Clinical Impression: abnormal ECG Critical Care Time Total Critical Care Time (min): 30 Critcal care necessary due to: hepatic failure Critcal care time spent by me: examination of patient, obtaining hx from song ent/surrogate, order/review laboratory studies, order/review radiographic studies, review of old charts Assessment & Plan Medical Decision Making MDM CBC, CHEMS, ECG, CARDIACS, BNP, NH3, UA/CX, BLOOD CX, LACTIC, CXR, CT BRAIN, COVID - R/O STEMI/NSTEMI, UTI, HYPERNATREMIA, HEPATIC ENCEPH, RENAL INSUFF, HEPATIC FAILURE Assessment & Plan Final Impression: (1) Hepatic encephalopathy (2) Coagulopathy (3) Hyperbilirubinemia (4) Hypernatremia (5) Renal insufficiency (6) UTI (urinary tract infection) (7) Altered mental status Depart Disposition: ADMITTED Last Vital Signs Date Time Temp Pulse Resp B/P (MAP) Pulse Ox O2 Delivery O2 Flow Rate FiO2 04/20/20 14:31 87 16 119/57 100 04/20/20 12:52 98.9 Room Air Home Meds Active Scripts Tramadol Hcl (ULTRAM) 50 Mg Tablet, 50 MG PO Q6HR PRN for Mild Pain (1-3) or Fever>100.8, #12 TAB Prov:SHANKAR NEWMAN, DO 04/20/20 Pantoprazole Sodium* (PROTONIX) 40 Mg Tablet.dr, 40 MG PO ACB for 30 Days, TAB Prov:LAWANDA COOK VACUUM REPAIRER 04/09/20 Reported Medications Meclizine Hcl (MECLIZINE HCL) 12.5 Mg Tablet, 25 MG PO DAILY, TAB 04/07/20 Lisinopril (LISINOPRIL) 10 Mg Tablet, 20 MG PO DAILY, #30 TAB 04/07/20 Furosemide (LASIX) 20 Mg Tablet, 20 MG PO DAILY, #30 TAB 04/07/20 Metoprolol Succinate (METOPROLOL SUCCINATE) 25 Mg Tab.er.24h, 1 TAB PO DAILY 04/07/20 Apixaban (Eliquis) 5 Mg Tab.ds.pk, 1 TAB PO BID 04/07/20 Fenofibrate Nanocrystallized (FENOFIBRATE) 145 Mg Tablet, 160 MG PO DAILY 04/07/20 Isosorbide Mononitrate (ISOSORBIDE MONONITRATE ER) 30 Mg Tab.er.24h, 30 MG PO DAILY, #30 TAB 04/07/20 [Iron] No Conflict Check, 65 MG PO DAILY 04/07/20 Mecobalamin (B12 Active) 1,000 Mcg Tab.chew, 1 TAB PO DAILY 04/07/20 Medications in the ED Ceftriaxone Sodium 50 ml @ 100 mls/hr Q12H IV ; Start 04/20/20 at 15:30; Stop 04/27/20 at 15:29 Sodium Chloride 250 ml @ 0 mls/hr ONCE ONCE IV ; Start 04/20/20 at 16:00; Stop 04/20/20 at 16:01; Status DC Furosemide 20 mg UD PRN IV SHORTNESS OF BREATH; Start 04/20/20 at 16:00; Stop 05/20/20 at 15:59 Dextrose 1,000 ml @ 100 mls/hr Q10H ONCE IV ; Start 04/20/20 at 16:00; Stop 04/21/20 at 01:59 Lactulose 20 gm Q6H PO ; Start 04/20/20 at 18:00; Stop 05/20/20 at 17:59 NEL BONNER MD Apr 20, 2020 16:21
[2020-04-20] MEDS: CEFTRIAXONE SOD 1 GM/NS 50 ML 50 ML IV SCH (17:23)
[2020-04-20] MEDS: FUROSEMIDE INJ 10 MG/ML 2 ML VIAL IV PRN (17:23)
[2020-04-20] MEDS: LACTULOSE SYRUP 20 GM/30 ML UDC PO SCH (17:23)
[2020-04-20] MEDS: ONDANSETRON HCL INJ 2MG/ML 2ML 2 MG/ML VIAL IV PRN (17:23)
[2020-04-20] MEDS ORDERED: CEFTRIAXONE SOD 1 GM VIAL ONE (17:28)
[2020-04-20] MEDS ORDERED: METOPROLOL TARTRATE INJ 1 MG/ML VIAL IV PRN (21:00)
[2020-04-20] MEDS ORDERED: ACETAMINOPHEN 325 MG TAB PO PRN (21:00)
[2020-04-20] MEDS ORDERED: MECLIZINE HCL 12.5 MG TAB PO PRN (21:00)
[2020-04-20] MEDS: APIXABAN 5 MG TABLET PO SCH (21:04)
[2020-04-20 21:31] VITALS: BP 113/47
--- NOTE | 2020-04-20 21:45 | NUR ---
Patient received via stretcher from ER. AAO x 3. Patient had complaint of pain to lower back (03/27). Will administer pain medication per eMAR. Admission history obtained. Initial physical assessment performed. Lovelace catheter draining clear dark melecio urine. IVF infusing at 100 cc/hr. Patient oriented to room, call light and plan of care. Safety measures implemented. Telemetry in place. Patient instructed to call for assistance when needed. Call light within reach.
[2020-04-20] MEDS ORDERED: LEVOTHYROXINE88 MCG PO (21:53)
--- NOTE | 2020-04-20 22:00 | NUR ---
Patient informed about blood transfusion due to low hemoglobin. Patient voluntarily signed "Disclosure and Consent" form.
--- NOTE | 2020-04-20 22:53 | NUR ---
Blood transfusion started. No adverse reaction noted. Will continue to monitor.
[2020-04-20 23:43] VITALS: BP 119/51
[2020-04-20 23:51] LABS: CHOL/HDL RATIO 4.2 (3.0-3.6)
[2020-04-21] VITALS (8 sets, daily range): BP systolic 99–139; BP diastolic 55–74
--- NOTE | 2020-04-21 02:09 | NUR ---
Blood transfusion completed. No adverse reaction noted except minimal bleeding from patient's mouth. Jesus Harrison (TOY TRAINS AND ACCESSORIES SALESPERSON) notified. New order received for GI Consult---Pedro Mcfadden.
[2020-04-21] MEDS: FUROSEMIDE INJ 10 MG/ML 2 ML VIAL IV PRN ×2 (02:19→05:52)
[2020-04-21] MEDS: LACTULOSE SYRUP 20 GM/30 ML UDC PO SCH ×4 (02:22→17:16)
[2020-04-21] MEDS ORDERED: SODIUM CHLORIDE 0.9% 250ML 250 ML ONE (02:45)
--- NOTE | 2020-04-21 02:59 | NUR ---
Second blood transfusion started. No adverse reaction noted. Will continue to monitor patient.
--- NOTE | 2020-04-21 06:00 | NUR ---
Fresh frozen plasma transfusion started. No adverse reaction noted. Will continue to monitor.
--- NOTE | 2020-04-21 07:00 | NUR ---
Shift report given to oncoming nurse.
[2020-04-21] MEDS ORDERED: PANTOPRAZOLE SOD 40 MG TABEC PO SCH (07:30)
[2020-04-21] MEDS ORDERED: NON-FORMULARY MEDICATION (Apixaban (Eliquis) 1 TAB) PO SCH (09:00)
[2020-04-21] MEDS ORDERED: MECLIZINE HCL12.5 MG PO (09:06)
[2020-04-21] MEDS ORDERED: ASCORBIC ACID500 MG PO (09:06)
[2020-04-21] MEDS ORDERED: PANTOPRAZOLE SO40 MG PO (09:06)
[2020-04-21] MEDS ORDERED: FERROUS SULFAT325 MG PO (09:06)
[2020-04-21] MEDS ORDERED: CEFDINIR300 MG PO (09:06)
[2020-04-21] MEDS ORDERED: LACTULOSE20 GM/30 M PO (09:12)
[2020-04-21 09:37] LABS: BASOPHILS # (AUTO) 0.1 (0.0-0.1); BASOPHILS % 1.1 % (0.0-1.0); EOSINOPHILS # (AUTO) 0.2 (0.0-0.4); HEMATOCRIT 26.6 % (34.2-44.1); HEMOGLOBIN 8.2 g/dL (12.0-16.0); LYMPHOCYTES % 22.3 % (18.0-39.1); MEAN CORPUSCULAR HEMOGLOBIN 30.8 pg (28-32); MEAN CORPUSCULAR HGB CONC 30.8 g/dL (31-35); MONOCYTES # (AUTO) 0.6 (0.2-0.8); MONOCYTES % 12.7 % (4.4-11.3); NEUTROPHILS # (AUTO) 2.7 (2.1-6.9); NEUTROPHILS % 59.2 % (38.7-80.0); PLATELET COUNT 126 x10e3/uL (140-360); RED BLOOD COUNT 2.66 x10e6/uL (3.6-5.1); RED CELL DISTRIBUTION WIDTH 23.9 % (11.7-14.4)
--- NOTE | 2020-04-21 09:40 | NUR ---
ORDERS REC'D FOR HOME HEALTH CARE AND ROLLING WALKER CM WENT IN TO GET CHOICE FROM PT FOR HOME HEALTH PT ASKS THAT I CALL HER DTR GREGORIO MCKEE AND GET CHOICE FROM HER I CALLED DTR AT [phone] EXPLAINED TO HER THAT HOME HEALTH AND RW ARE ORDERED FOR PT'S UPCOMING DISCHARGE SHE STATES SHE WANTS TO SPEAK WITH BOLOGNA LACER REGARDING DISCHARGE DOESN'T FEEL LIKE SHE'S READY BECAUSE PT HAS BEEN IN HOSPITAL EVERY 2 WEEKS WITH "BLEEDING" AND THEY HAVEN'T DETERMINED WHERE BLEEDING IS COMING FROM. STATES PT HAD BLOOD IN HER STOOL PRIOR TO ADMIT AND WAS BLEEDING FROM HER MOUTH. REFUSING TO GIVE CHOICE FOR HOME HEALTH AT THIS TIME. I NOTIFIED LAWANDA THAT PT'S DTR IS REQUESTING TO SPEAK WITH HER PT'S DTR ALSO STATES THAT PT ALREADY HAS A WALKER AND IT IS IN GOOD CONDITION. CM TO FOLLOW FOR HOME HEALTH CHOICE
[2020-04-21 09:59] LABS: ALBUMIN 2.5 g/dL (3.5-5.0); ALBUMIN/GLOBULIN RATIO 0.7 (0.8-2.0); ANION GAP 11.7 mmol/L (8-16); CALCIUM 8.5 mg/dL (8.4-10.2); CREATININE, SERUM 1.7 mg/dL (0.57-1.11); INR 2.06; POTASSIUM 3.7 mmol/L (3.5-5.1); PROTHROMBIN TIME 24.7 seconds (11.9-14.5)
[2020-04-21 10:25] LABS: CREATINE KINASE MB 1.1 ng/mL (0-5.0)
[2020-04-21] MEDS: PANTOPRAZOLE 40 MG 10ML VIAL IV SCH ×2 (10:31→16:18)
[2020-04-21] MEDS: ISOSORBIDE MONONITRATE 30 MG TAB CR PO SCH (10:36)
[2020-04-21] MEDS: APIXABAN 5 MG TABLET PO SCH (10:36)
[2020-04-21] MEDS: CEFTRIAXONE SOD 1 GM/NS 50 ML 50 ML IV SCH ×2 (10:36→16:18)
[2020-04-21] MEDS: METOPROLOL SUCCINATE 25 MG TAB XL PO SCH (10:37)
[2020-04-21] MEDS: FENOFIBRATE 160 MG TAB PO SCH (16:19)
[2020-04-21 17:33] LABS: HEMATOCRIT 27.4 % (34.2-44.1); HEMOGLOBIN 8.3 g/dL (12.0-16.0)
--- NOTE | 2020-04-21 20:43 | NUR ---
New order received from Dr. Mcfadden for Vit. K 20mg IVPB stat.
[2020-04-21] MEDS ORDERED: APIXAB 2.5 MG TABLET PO SCH (21:00)
[2020-04-21] MEDS ORDERED: PHYTONADIONE 10 MG/ML AMP IV ONE (21:00)
--- NOTE | 2020-04-21 21:10 | NUR ---
IV infiltrated on left arm. New IV inserted in right hand 20G. Patient tolerated well.
[2020-04-21] MEDS ORDERED: PHYTONADIONE 10MG/ML 20 MG in SODIUM CHLORIDE 0.9% 100 ML 100 ML IV ONE (21:15)
[2020-04-21] MEDS ORDERED: SODIUM CHLORIDE 0.9% 100 ML ONE (21:54)
[2020-04-22] VITALS (8 sets, daily range): BP systolic 91–160; BP diastolic 41–62
[2020-04-22] MEDS: LACTULOSE SYRUP 20 GM/30 ML UDC PO SCH ×2 (00:19→05:38)
[2020-04-22 00:48] LABS: CREATINE KINASE MB 0.8 ng/mL (0-5.0)
[2020-04-22] MEDS: CEFTRIAXONE SOD 1 GM/NS 50 ML 50 ML IV SCH ×2 (03:35→14:40)
[2020-04-22 05:28] LABS: BASOPHILS # (AUTO) 0.1 (0.0-0.1); EOSINOPHILS # (AUTO) 0.3 (0.0-0.4); EOSINOPHILS % 5.4 % (0.0-6.0); HEMATOCRIT 28.3 % (34.2-44.1); HEMOGLOBIN 8.5 g/dL (12.0-16.0); LYMPHOCYTES # (AUTO) 1.1 (1.0-3.2); LYMPHOCYTES % 21.4 % (18.0-39.1); MEAN CORPUSCULAR HEMOGLOBIN 31.3 pg (28-32); MONOCYTES # (AUTO) 0.7 (0.2-0.8); NEUTROPHILS % 58.4 % (38.7-80.0); PLATELET COUNT 126 x10e3/uL (140-360); RED BLOOD COUNT 2.72 x10e6/uL (3.6-5.1); RED CELL DISTRIBUTION WIDTH 24.1 % (11.7-14.4)
[2020-04-22 05:42] LABS: INR 1.74; PROTHROMBIN TIME 21.6 seconds (11.9-14.5)
[2020-04-22 05:43] LABS: PARTIAL THROMBOPLASTIN TIME 38.3 seconds (23.8-35.5)
[2020-04-22] MEDS: TRAMADOL HCL 50 MG TAB PO PRN ×3 (05:43→20:29)
[2020-04-22 05:53] LABS: ALBUMIN 2.6 g/dL (3.5-5.0); ALBUMIN/GLOBULIN RATIO 0.8 (0.8-2.0); ANION GAP 9.7 mmol/L (8-16); CALCIUM 8.9 mg/dL (8.4-10.2); CREATININE, SERUM 1.71 mg/dL (0.57-1.11); POTASSIUM 3.7 mmol/L (3.5-5.1)
--- NOTE | 2020-04-22 07:40 | NUR ---
PATIENT IS ALERT AND IN STABLE CONDITION WITH NO S/S OF RESPIRATORY DISTRESS. NO PAIN VOICED. TELEMETRY APPLIED. KINNEY INTACT AND DRAINING; URINE IS ORANGE IN COLOR AND CLEAR. CALL LIGHT IS WITHIN REACH, PATIENT INSTRUCTED TO CALL FOR ASSISTANCE NEEDED.
[2020-04-22] MEDS: PANTOPRAZOLE 40 MG 10ML VIAL IV SCH ×2 (08:05→16:00)
[2020-04-22] MEDS: METOPROLOL SUCCINATE 25 MG TAB XL PO SCH (08:06)
[2020-04-22] MEDS: ISOSORBIDE MONONITRATE 30 MG TAB CR PO SCH (08:06)
[2020-04-22] MEDS: FENOFIBRATE 160 MG TAB PO SCH (08:08)
[2020-04-22] MEDS ORDERED: ELIQUIS2.5 MG PO (09:25)
--- NOTE | 2020-04-22 10:00 | NUR ---
PATIENT OFF THE UNIT PER BED TO NUCLEAR MEDICINE
--- NOTE | 2020-04-22 10:21 | NUR ---
Called and spoke to daughter Cynthia Pierre at [phone] regarding home health. States pt currently on service with [facility] and would like to continue with them. Choice obtained. Discussed IMM letter. She verbalized understanding. Informed her copy will be left in pt's room. Signed copy of choice letter and IMM placed in chart. NADINE called and spoke to Sruthi with intake at [facility] and verified that pt is currently on service with them. Informed her that anticipated dc is for today and NADINE will send clinicals. order and clinical faxed to [facility] at [phone] / .
--- NOTE | 2020-04-22 11:52 | NUR ---
PATIENT BACK ON THE UNIT FROM NUCLEAR MEDICINE- LUNCH TRAY HAS BEEN SETUP FOR PATIENT TO EAT.
--- NOTE | 2020-04-22 13:30 | NUR ---
SPOKE WITH PT WHILE SHE WAS ON PHONE WITH SON GAIL [phone] ABOUT SNF ORDER, SON AND PT AGREE THAT IS THE BETTER OPTION FOR HER SINCE SHE IS UNABLE TO GET AROUND. GAVE CHOICES IN NETWORK, ALL PARTIES DISCUSSED AND AGREED UPON COURTYARDS OF JUAN, PT SIGNED CHOICE. FILED CHOICE IN CHART, FAXED CLINICALS TO [phone] AND NOTIFIED FACILITY REP FAX IS ON WAY. COMPLETED RTF AND COVID FORM AND PASRR, PUT WITH PACKET AND CHART AND PUT AT NURSES STATION TO COMPLETE TRANSFER.
--- NOTE | 2020-04-22 14:01 | Diagnostic Imaging Report ---
Tagged-RBC GI Bleed Study Clinical information: 74-year-old female with rectal bleeding. Discussion: The patient's own red blood cells were labeled with 27 mCi of technetium-99m pertechnetate using the in vitro method (UltraTag). Dynamic images of the abdomen were obtained through 60 minutes. Distribution of tracer activity appears physiologic throughout the abdomen. No abnormal accumulation of tracer is seen within the gastrointestinal lumen. Impression: No scan evidence of active gastrointestinal bleeding at this time. Signed by: Dr. Nicole Farah M.D. on 04/22/2020 1:58 PM
--- NOTE | 2020-04-22 14:11 | NUR ---
Called and spoke with Jesica at [facility] and informed that plan is now for pt to go to SNF.
[2020-04-22 15:38] LABS: HEMATOCRIT 27.9 % (34.2-44.1); HEMOGLOBIN 8.5 g/dL (12.0-16.0)
--- NOTE | 2020-04-22 19:18 | NUR ---
PATIENT IS IN STABLE CONDITION WITH NO S/S OF RESPIRATORY DISTRESS. NO PAIN VOICED. TELEMETRY APPLIED. CALL LIGHT IS WITHIN REACH, PATIENT INSTRUCTED TO CALL FOR ASSISTANCE NEEDED. REPORT GIVEN TO ONCOMING NURSE.
--- NOTE | 2020-04-22 19:30 | NUR ---
patient received awake, alert, lying quietly in bed. no c/o pain noted. pm assessment complete. call nelson placed within reach. patient instructed to call for assistance when needed.
--- NOTE | 2020-04-22 20:29 | NUR ---
patient medicated with ultram 50mg po for c/o left hip pain 03/27 at this time per patients request.
[2020-04-23] VITALS (9 sets, daily range): BP systolic 93–111; BP diastolic 40–62
--- NOTE | 2020-04-23 00:50 | NUR ---
Dr. Valles here to see patient. prep for possible egd and colonoscopy to start in am.
[2020-04-23] MEDS: CEFTRIAXONE SOD 1 GM/NS 50 ML 50 ML IV SCH ×2 (03:02→14:50)
[2020-04-23] MEDS ORDERED: CITRATE OF MAGNESIA 300ML BOTTLE PO ONE (05:00)
[2020-04-23 05:39] LABS: INR 1.35; PROTHROMBIN TIME 17.6 seconds (11.9-14.5)
[2020-04-23 05:42] LABS: BASOPHILS # (AUTO) 0.1 (0.0-0.1); BASOPHILS % 1.2 % (0.0-1.0); EOSINOPHILS # (AUTO) 0.3 (0.0-0.4); EOSINOPHILS % 5.6 % (0.0-6.0); HEMOGLOBIN 8.1 g/dL (12.0-16.0); LYMPHOCYTES # (AUTO) 1.1 (1.0-3.2); LYMPHOCYTES % 21.8 % (18.0-39.1); MEAN CORPUSCULAR HEMOGLOBIN 31.3 pg (28-32); MEAN CORPUSCULAR VOLUME 104.2 fL (81-99); MONOCYTES # (AUTO) 0.6 (0.2-0.8); MONOCYTES % 11.9 % (4.4-11.3); NEUTROPHILS # (AUTO) 2.8 (2.1-6.9); NEUTROPHILS % 58.7 % (38.7-80.0); PLATELET COUNT 126 x10e3/uL (140-360); RED BLOOD COUNT 2.59 x10e6/uL (3.6-5.1); RED CELL DISTRIBUTION WIDTH 22.8 % (11.7-14.4)
[2020-04-23 05:58] LABS: ALBUMIN 2.4 g/dL (3.5-5.0); ALBUMIN/GLOBULIN RATIO 0.7 (0.8-2.0); ANION GAP 7.9 mmol/L (8-16); CALCIUM 8.2 mg/dL (8.4-10.2); CREATININE, SERUM 1.53 mg/dL (0.57-1.11); POTASSIUM 3.9 mmol/L (3.5-5.1)
--- NOTE | 2020-04-23 07:00 | NUR ---
PATIENT IS IN STABLE CONDITION WITH NO S/S OF RESPIRATORY DISTRESS. NO PAIN VOICED. TELEMETRY APPLIED. KINNEY INTACT AND DRAINING; URINE IS ORANGE IN COLOR AND CLEAR. DIAPER APPLIED. BED ALARM APPLIED. CALL LIGHT IS WITHIN REACH, PATIENT INSTRUCTED TO CALL FOR ASSISTANCE NEEDED.
[2020-04-23] MEDS: LACTULOSE SYRUP 20 GM/30 ML UDC PO SCH (08:00)
[2020-04-23] MEDS: ISOSORBIDE MONONITRATE 30 MG TAB CR PO SCH (08:04)
[2020-04-23] MEDS: METOPROLOL SUCCINATE 25 MG TAB XL PO SCH (08:05)
[2020-04-23] MEDS: PANTOPRAZOLE 40 MG 10ML VIAL IV SCH ×2 (08:05→16:25)
[2020-04-23] MEDS: FENOFIBRATE 160 MG TAB PO SCH (08:06)
[2020-04-23] MEDS: ONDANSETRON HCL INJ 2MG/ML 2ML 2 MG/ML VIAL IV PRN (10:53)
--- NOTE | 2020-04-23 13:27 | NUR ---
WOUND CARE CONSULT FOR 74 YO FEMALE HX OF AMS ,HEPATIC ENCEP DARIO 16 ON MODERATE PUP STATUS AND INTERVENTIONS AND ALTERNATING PRESSURE MATTRESS LABS: WBC-5.15 HGB_8.5 GLUCOSE-117 SKIN ASSESSMENT COMPLETE PATIENT PRESENTS WITH SACRAL STAGE 2 ULCERATION 2CM X0.5CM X0.1CM RECOMMENDATIONS: NURSING TO CONTINUE TO MAINTAIN MODERATE PUP STATUS AND INTERVENTIONS AND ALTERNATING PRESSURE MATTRESS NURSING TO CONTINUE TO ASSIST PATIENT OUT OF BED FOR MEALS AND MUCH TOLERATED NURSING TO CONTINUE TO ASSIST PATIENT NEEDED WITH MEALS AND NUTRITIONAL SUPPLEMENTS TO ENSURE PROPER REQUIREMENTS FOR HEALING NURSING TO CONTINUE TO OFFLOAD FEET AND HEELS NEEDED WITH PILLOW SUSPENSION WHEN IN BED NURSING TO CLEAN SACRAL STG 2 ULCERATION WITH NORMAL SALINE DAILY AND APPLY VENELEX OINTMENT AND ALLEVYN FOAM DRESSING Addendum: 04/23/20 at 1332 by Luke Merritt RN Amended: Links added.
[2020-04-23] MEDS ORDERED: BISACODYL 5 MG TAB EC PO NR ×4 (14:30→19:30)
--- NOTE | 2020-04-23 15:23 | NUR ---
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 Pt evaluated today for LOS. Attempted to call pt room x 2, no answer- unable to obtain pt hx at this time. Pt tolerating CLD, consuming 75-100% of meals. No wt loss noted per prior admits in March and January. Pt with stage II sacral PU per wound care assessment. Pt with multiple BMs today and yesterday- on lactulose. Plan for transfer to SNF. Labs and meds reviewed. Diet rec's provided. Will continue to monitor. Current Diet: Clear liquids Malnutrition Evaluation (04/23/20) The patient does not meet criteria for a specified degree of malnutrition at this time. Will re-evaluate at follow-up as appropriate. Unable to complete assessment at this time. Diet Education Needs Assessment: Diet education not indicated. Diet tolerance: tolerating CLD Nutrition Care Level: low Signed: Lorena Torres RD, LD, [facility]
--- NOTE | 2020-04-23 16:12 | NUR ---
FAXED PROGRESS AND PT NOTES TO FACILITY FOR UPDATE, WAS TOLD WILL GET BED TONIGHT.
--- NOTE | 2020-04-23 19:15 | NUR ---
PATIENT IS IN STABLE CONDITION WITH NO S/S OF RESPIRATORY DISTRESS- NO PAIN VOICED. PATIENT WILL BE NPO AFTER MIDNIGHT AND IS AWARE. PATIENT CURRENTLY ON BEDSIDE COMMODE. CALL LIGHT IS WITHIN REACH, PATIENT INSTRUCTED TO CALL FOR ASSISTANCE NEEDED. REPORT GIVEN TO ONCOMING NURSE.
[2020-04-23] MEDS ORDERED: CITRATE OF MAGNESIA 300ML BOTTLE PO NR (21:00)
[2020-04-24] VITALS (8 sets, daily range): BP systolic 95–112; BP diastolic 46–74
[2020-04-24] MEDS: CEFTRIAXONE SOD 1 GM/NS 50 ML 50 ML IV SCH ×2 (02:11→15:30)
[2020-04-24] MEDS: ONDANSETRON HCL INJ 2MG/ML 2ML 2 MG/ML VIAL IV PRN (04:23)
[2020-04-24 06:48] LABS: FERRITIN 62.95 ng/mL (4.63-204.00)
--- NOTE | 2020-04-24 07:00 | NUR ---
RCD PT AT BED PT IS ALERT AND ORIENTED PT NPO FOR PROCEDURE BED LOW AND LOCKED CALL LIGHT IN REACH
[2020-04-24] MEDS: PANTOPRAZOLE 40 MG 10ML VIAL IV SCH ×2 (08:17→16:30)
[2020-04-24] MEDS: BALSAM PERU/CASTOR OIL 60 GM OINT...G. TP SCH (09:00)
[2020-04-24] MEDS: FENOFIBRATE 160 MG TAB PO SCH (09:00)
[2020-04-24] MEDS: METOPROLOL SUCCINATE 25 MG TAB XL PO SCH (09:00)
[2020-04-24] MEDS: ISOSORBIDE MONONITRATE 30 MG TAB CR PO SCH (09:00)
[2020-04-24] MEDS: LACTULOSE SYRUP 20 GM/30 ML UDC PO SCH (09:00)
--- NOTE | 2020-04-24 10:45 | NUR ---
PT WENT TO PROCEDURE IN SAFE CONDITION
--- NOTE | 2020-04-24 13:45 | NUR ---
PT BACKAFTER PROCEDURE PT IS ALERT AND ORIENTED VITALS CHECKED PT RESTING ON BED BED LOW AND LOCKED CALL LIGHT IN REACH
--- NOTE | 2020-04-24 14:15 | NUR ---
TALKED TO THE DAUGHTER THE UPDATES
--- NOTE | 2020-04-24 16:00 | NUR ---
DRESSING CHANGED ON THE LOWER BACK
[2020-04-24] MEDS: TRAMADOL HCL 50 MG TAB PO PRN (16:30)
--- NOTE | 2020-04-24 18:17 | Operative Report ---
DATE OF PROCEDURE: 04/24/2020 SURGEON: Pedro Mcfadden MD PROCEDURES: EGD and colonoscopy with polypectomy and fulguration of AVM. INDICATIONS FOR EGD: History of melena, guaiac-positive stools. INDICATIONS FOR COLONOSCOPY: Anemia, guaiac-positive stools. MEDICATIONS: The patient was done under MAC, please see anesthesiologist's note. PROCEDURE IN DETAIL: With the patient in the left lateral decubitus position, the flexible fiberoptic Olympus gastroscope was introduced into the esophagus under direct visualization without any difficulty. The esophagus appeared to be within normal limits. The scope was then advanced with ease into the stomach. Mucosa overlying the antrum and the body revealed some patchy erythema. An approximately 6 mm ulcer was noted in the upper body along the anterior wall without active bleeding. Pylorus was intubated with ease and the scope was advanced all the way to the second portion of the duodenum. The scope was then withdrawn slowly. Mucosa overlying the proximal second portion and duodenal bulb appeared to be within normal limits. The scope was then withdrawn back into the stomach and retroflexed, mucosa overlying the fundus and the cardia appeared to be within normal limits. The scope was then straightened out, it was subsequently withdrawn, and the patient tolerated the procedure well. IMPRESSION: 1. Normal esophagus. 2. Gastritis. 3. Gastric ulcer, upper body approximately 6 mm in size without active bleeding. PLAN: Continue PPI therapy. The patient was then turned around and after adequate lubrication of the anal canal, the flexible fiberoptic Olympus colonoscope was inserted into the rectum with ease and advanced all the way to the cecum. It was then withdrawn slowly, mucosa overlying the cecum appeared to be within normal limits. The ascending colon also was within normal limits. A minute polyp was noted in the proximal transverse colon and that was removed per hot biopsy forceps. The rest of the transverse appeared to be within normal limits. Diverticular disease was noted in the distal descending and the sigmoid colon. An AVM was noted in the sigmoid colon that was fulgurated with size 10-Kinyarwanda Gold Probe. The rectum appeared to be within normal limits. The scope was then retroflexed into the distal rectum and small internal hemorrhoids were noted, none of which was actively bleeding. The scope was then straightened out, it was subsequently withdrawn, and the patient tolerated the procedure well. IMPRESSION: 1. Transverse colon polyp, hot biopsied. 2. Diverticulosis. 3. Arteriovenous malformation, sigmoid colon, fulgurated with size 10-Kinyarwanda Gold Probe. 4. Internal hemorrhoids, none actively bleeding. PLAN: Follow up histology. The patient will need a small bowel series and if negative and if anemia recurs, then an endo capsule would be in order. Pedro Mcfadden MD [facility] [place]/MODL /[id number] cc: Devin Sprague MD
--- NOTE | 2020-04-24 18:45 | NUR ---
PT RESTING ON BED BED SIDE REPORT GIVEN TO ONCOMING NURSE
--- NOTE | 2020-04-24 19:30 | NUR ---
Patient received asleep in bed. Arousable to tactile stimuli. Patient had no signs of pain or respiratory distress. Lovelace catheter draining clear dark melecio urine. Fall precautions implemented. Call light within reach.
[2020-04-25] VITALS (7 sets, daily range): BP systolic 103–121; BP diastolic 39–64
[2020-04-25] MEDS: TRAMADOL HCL 50 MG TAB PO PRN (02:32)
[2020-04-25] MEDS: CEFTRIAXONE SOD 1 GM/NS 50 ML 50 ML IV SCH ×2 (03:23→15:45)
--- NOTE | 2020-04-25 05:54 | Progress Note ---
DATE: 04/24/2020 CONSULTING PHYSICIAN: Pedro Mcfadden MD. SUBJECTIVE: The patient still complains of dysuria, weakness. Denies any nausea, vomiting, or diarrhea currently. She had stated she had 5 diarrhea stools on 04/22 and one large diarrhea stool on 04/23. No chills or fever. No cough. No dizziness. She has hip and left leg pain. OBJECTIVE: VITAL SIGNS: Temperature 97.5, heart rate 88, blood pressure 110/58, respirations 18, and oxygen saturation 100% on room air. GENERAL: Supine. LUNGS: Clear to auscultation. Respiratory pattern even and unlabored. HEENT: EOMI. NECK: Supple. CARDIOVASCULAR: Regular rate and rhythm without murmur. ABDOMEN: Bowel sounds positive. Soft, nontender. No guarding. Lovelace catheter with melecio urine. EXTREMITIES: No clubbing, cyanosis, or edema. No signs of DVT. NEUROLOGIC: GCS 15. Nonfocal. Alert, oriented x4. LABORATORY DATA: Percent reticulocytes 4.6, iron 82, TIBC 374, percent saturation 22, transferrin 267, ferritin 62.95. Fingerstick blood glucose level 122, 114, 125. Vitamin B12 greater than 2000. Folate is pending. GI bleed. Nuclear medicine scan done on 04/22 showed no evidence of acute gastrointestinal bleeding. The patient underwent EGD today 04/24. In fact, she had EGD with colonoscopy and polypectomy and fulguration of AV malformation. Impression; normal esophagus, gastritis, gastric ulcer, upper body approximately 6 mm in size. Transverse colon polyp, hot biopsied. Diverticulosis, arterial venous malformation, sigmoid colon, fulgurated with a size 10-[place] Gold probe. Internal hemorrhoids, not actively bleeding. ASSESSMENT/PLAN: 1. Acute blood loss anemia due to gastrointestinal bleed. Fecal occult blood test positive. GI bleed scan negative. EGD, colonoscopy done showing sigmoid colon AV malformation, status post 2 units of PRBCs. Await further recommendations from Gastroenterology. 2. Sigmoid colon arteriovenous malformation, status post fulguration on 04/24/2020, diverticulosis without diverticulitis. GI following. I appreciate recommendations. 3. Acute pansensitive E coli urinary tract infection, present on arrival. Continue Rocephin. 4. Acute hepatic encephalopathy. Ammonia level normalized, currently 74. Continue lactulose. 5. Altered mental status, resolved. 6. Controlled hypertension with chronic kidney disease stage 3. Beta stefany, Lasix. 7. Controlled type 2 diabetes mellitus. 04/08 hemoglobin A1c 5.2%. Glucose stable. 8. Status post fall on 04/20/2020, with left hip/leg pain. CT of the brain negative. [facility]. 9. History of atrial fibrillation. Continue apixaban. 10. Prophylaxis. Protonix. TIME SPENT: 35 minutes, billing code [id number]. DISPOSITION/DISCHARGE PLAN: [facility] at [facility]. Dictated by Nikunj Andres NP MD [facility] /[id number]
[2020-04-25 05:55] LABS: BASOPHILS # (AUTO) 0.1 (0.0-0.1); BASOPHILS % 1.3 % (0.0-1.0); EOSINOPHILS # (AUTO) 0.3 (0.0-0.4); EOSINOPHILS % 6.7 % (0.0-6.0); HEMATOCRIT 27.3 % (34.2-44.1); LYMPHOCYTES # (AUTO) 0.8 (1.0-3.2); LYMPHOCYTES % 21.2 % (18.0-39.1); MEAN CORPUSCULAR HGB CONC 29.3 g/dL (31-35); MEAN CORPUSCULAR VOLUME 105.8 fL (81-99); MONOCYTES # (AUTO) 0.6 (0.2-0.8); MONOCYTES % 16.4 % (4.4-11.3); NEUTROPHILS % 53.9 % (38.7-80.0); PLATELET COUNT 112 x10e3/uL (140-360); RED BLOOD COUNT 2.58 x10e6/uL (3.6-5.1); RED CELL DISTRIBUTION WIDTH 21.5 % (11.7-14.4)
[2020-04-25 05:59] LABS: ANION GAP 8.9 mmol/L (8-16); CALCIUM 8.3 mg/dL (8.4-10.2); CREATININE, SERUM 1.26 mg/dL (0.57-1.11); POTASSIUM 3.9 mmol/L (3.5-5.1)
[2020-04-25] MEDS: METOPROLOL SUCCINATE 25 MG TAB XL PO SCH (08:46)
[2020-04-25] MEDS: ISOSORBIDE MONONITRATE 30 MG TAB CR PO SCH (08:46)
[2020-04-25] MEDS: PANTOPRAZOLE 40 MG 10ML VIAL IV SCH ×2 (08:46→18:06)
[2020-04-25] MEDS: LACTULOSE SYRUP 20 GM/30 ML UDC PO SCH (09:00)
[2020-04-25] MEDS: FENOFIBRATE 160 MG TAB PO SCH (09:00)
[2020-04-25] MEDS: BALSAM PERU/CASTOR OIL 60 GM OINT...G. TP SCH (11:50)
--- NOTE | 2020-04-25 19:20 | NUR ---
PATIENT RECEIVED. PATIENT IS AAOX3. RESP EVEN AND UNLABORED. DENIED OF ANY PAIN OR DISCOMFORT AT THIS TIME. TELE IN PLACE. KINNEY IN PLACE NOTED. EDUCATED PT ABOUT FALL PRECAUTIONS. PT VERBALIZED UNDERSTANDING. CALL LIGHT WITH IN EASY REACH. INSTRUCTED PT TO USE CALL LIGHT FOR ALL THE NEEDS. BED IS LOW AND LOCKED. SIDE RAILS X2. BED ALARM IS ON. CONTINUE TO MONITOR CLOSELY
[2020-04-25] MEDS: ONDANSETRON HCL INJ 2MG/ML 2ML 2 MG/ML VIAL IV PRN (20:31)
[2020-04-26] VITALS: BP 106/45
[2020-04-26 02:06] LABS: BILIRUBIN,URINE NEGATIVE (NEGATIVE); CLARITY,URINE SL CLOUDY (CLEAR); COLOR,URINE YELLOW (YELLOW); KETONES,URINE NEGATIVE (NEGATIVE); LEUKOCYTE ESTERASE ,URINE NEGATIVE (NEGATIVE); NITRITE,URINE NEGATIVE (NEGATIVE); PROTEIN,URINE DIPSTICK NEGATIVE (NEGATIVE); URINE UROBILINOGEN 1 mg/dL (0.2 - 1)
--- NOTE | 2020-04-26 02:23 | Progress Note ---
DATE: 04/25/2020 CONSULTING PHYSICIAN: Pedro Mcfadden MD. SUBJECTIVE: The patient complains of bilateral knee pain, much worse on the right knee than the left knee. Her dysuria is rated 8/10 on a 0 to 10 pain scale, mostly experienced after urination, but it is a persistent burning. No abdominal pain. OBJECTIVE: VITAL SIGNS: Temperature 98.0, pulse 69, blood pressure 121/62, respirations 20, oxygen saturation 100%. Intake and output 2250 mL in and 1450 mL out. GENERAL: Supine in bed. LUNGS: Clear to auscultation. Respiratory pattern even and unlabored. HEENT: EOMI. NECK: Supple. CARDIOVASCULAR: Regular rate and rhythm without murmur. ABDOMEN: Bowel sounds positive. Soft, nontender. No guarding. Lovelace catheter with melecio urine. Obese. EXTREMITIES: No clubbing, cyanosis, or edema. No signs of DVT. NEUROLOGIC: GCS 15. Nonfocal. Alert and oriented x4. LABORATORY DATA: WBCs 3.73, hemoglobin 8.0, hematocrit 27.3, platelets 112. Sodium 142, potassium 3.9, chloride 112, CO2 25, BUN 27, creatinine 1.26, glucose 116. Fingerstick blood glucose levels 110, 135, 137. Calcium 8.3. Folate remains pending 04/20. Urine culture final result showed pansensitive E coli. ASSESSMENT/PLAN: 1. Acute blood loss anemia due to gastrointestinal bleed. FOBT positive. GI bleed scan negative. EGD showed gastric ulcer. Colonoscopy showed colon polyp and AVM. The patient underwent polypectomy and fulguration of AV malformation. Status post 2 units of PRBCs. Tolerating oral diet well. 2. Severe dysuria with acute pansensitive Escherichia coli urinary tract infection, POA, currently on Rocephin. Case was discussed with Dr. Mcfadden. We believe the patient's dysuria should be improving. She has been on antibiotics and culture shows E coli to be pansensitive. We will reassess UA culture and sensitivity. We will switch off Lovelace catheter. 3. Acute hepatic encephalopathy, resolved. Hyperammonemia normalized. The most recent level 74. Continue lactulose. No longer has altered mental status. 4. Controlled hypertension with chronic kidney disease 3, beta-stefany, Lasix, monitor BP. 5. Controlled type 2 diabetes mellitus. Hemoglobin A1c 5.2%. Serum glucose 116. 6. Status post fall on 04/20/2020, with left hip and leg pain. CT of the brain negative. Physical therapy recommends [facility]. 7. Probable osteoarthritis, right knee, pain control. 8. History of atrial fibrillation. Continue apixaban. 9. Prophylaxis. Protonix. Time spent, 35 minutes. Billing code [id number]. DISCHARGE PLAN: Awaiting bed at [facility]. Dictated by Nikunj Andres NP Devin Sprague MD [facility]/MODL /[id number]
[2020-04-26 02:35] LABS: EPITHELIAL CELLS,URINE FEW /LPF; RBC,URINE >50 /HPF (0-5); WBC,URINE (MAN) 21-50 /HPF (0-5)
--- NOTE | 2020-04-26 02:35 | NUR ---
BRICK WASHER SNEHA AWARE OF LOW URINE OUTPUT. REPLACED NEW KINNEY CATHETER PER ORDER. CONTINUE TO MONITOR CLOSELY
[2020-04-26 02:36] LABS: BACTERIA,URINE MODERATE /HPF
[2020-04-26] MEDS: TRAMADOL HCL 50 MG TAB PO PRN (03:17)
[2020-04-26] MEDS: CEFTRIAXONE SOD 1 GM/NS 50 ML 50 ML IV SCH (03:17)
[2020-04-26 04:00] VITALS: BP 99/58
[2020-04-26 05:45] LABS: BASOPHILS % 0.8 % (0.0-1.0); EOSINOPHILS # (AUTO) 0.2 (0.0-0.4); EOSINOPHILS % 5.7 % (0.0-6.0); HEMATOCRIT 27.3 % (34.2-44.1); HEMOGLOBIN 8.2 g/dL (12.0-16.0); LYMPHOCYTES # (AUTO) 0.9 (1.0-3.2); LYMPHOCYTES % 24.2 % (18.0-39.1); MEAN CORPUSCULAR HEMOGLOBIN 31.7 pg (28-32); MEAN CORPUSCULAR VOLUME 105.4 fL (81-99); MONOCYTES # (AUTO) 0.5 (0.2-0.8); MONOCYTES % 13.8 % (4.4-11.3); NEUTROPHILS # (AUTO) 2.1 (2.1-6.9); NEUTROPHILS % 54.5 % (38.7-80.0); PLATELET COUNT 120 x10e3/uL (140-360); RED BLOOD COUNT 2.59 x10e6/uL (3.6-5.1)
[2020-04-26 06:21] LABS: CALCIUM 8.3 mg/dL (8.4-10.2); CREATININE, SERUM 1.23 mg/dL (0.57-1.11)
[2020-04-26 07:49] LABS: ANISOCYTOSIS MODERATE; PLATELET ESTIMATE SLIGHTLY DECREASED; PLATELET MORPHOLOGY COMMENT NORMAL; POLYCHROMASIA FEW; RBC MORPHOLOGY COMMENT ABNORMAL
[2020-04-26] MEDS: METOPROLOL SUCCINATE 25 MG TAB XL PO SCH (08:24)
[2020-04-26] MEDS: LACTULOSE SYRUP 20 GM/30 ML UDC PO SCH (08:24)
[2020-04-26] MEDS: ISOSORBIDE MONONITRATE 30 MG TAB CR PO SCH (08:24)
[2020-04-26] MEDS: PANTOPRAZOLE 40 MG 10ML VIAL IV SCH (08:24)
[2020-04-26] MEDS: BALSAM PERU/CASTOR OIL 60 GM OINT...G. TP SCH (08:24)
[2020-04-26] MEDS: FENOFIBRATE 160 MG TAB PO SCH (08:24)
[2020-04-26 08:29] VITALS: BP 115/52
[2020-04-26] MEDS ORDERED: CEFTRIAXONE1 GM IV (09:51)
--- NOTE | 2020-04-26 10:49 | NUR ---
SNF FACILITY DISCHARGE INFORMATION PATIENT HAS BEEN ACCEPTED TO: NAME: ALEXANDER ADDRESS:[id number] [facility] ACCEPTING SOUVENIR ASSEMBLER:ISMAEL HUNTER ACCEPTING MD: KRISTEN ROOM: 128 NURSE CALL REPORT TO: [phone] IMM SIGNED AND OBTAINED (if applicable): IMM THE FOLLOWING DOCUMENTS MUST ACCOMPANY PATIENT FOR TRANSFER: COPIED CHART: PACKET AT STATION
--- NOTE | 2020-04-26 11:45 | Discharge Summary ---
PRIMARY CARE PHYSICIAN: Mark Bridges DO. CONSULTING PHYSICIAN: Dr. Pedro Mcfadden. CHIEF COMPLAINT: Status post fall, dysuria. HISTORY OF PRESENT ILLNESS: The patient is a 74-year-old female admitted with status post fall on 04/20/2020. The patient did not remember if she tripped or got dizzy. She complained of dysuria for two days. She denied bright red blood per rectum, hematuria, fever, cough, shortness of breath. She has black stools, but gets iron infusions as an outpatient. She has chronic bleeding gums. She had EGD on 08/09/2020 with AVMs. PAST MEDICAL HISTORY: Arterial venous malformations, type 2 diabetes mellitus, hyperlipidemia, hypertension, atrial fibrillation, hypothyroidism and off medication, uterine cancer, chronic kidney disease stage 3. PAST SURGICAL HISTORY: Back surgery, pacemaker, appendectomy, hysterectomy, cholecystectomy. FAMILY HISTORY: Mother and father both have diabetes mellitus. Father had CVA. SOCIAL HISTORY: Noncontributory. ALLERGIES: STEROIDS. ADMITTING DIAGNOSES: 1. Acute anemia, possibly due to gastrointestinal bleed. 2. Urinary tract infection, present on admission. 3. Status post fall. 4. Acute hepatic encephalopathy. 5. Hepatic steatosis. 6. Obesity. 7. Chronic kidney disease stage 3. DISCHARGE DIAGNOSES: 1. Acute blood loss due to gastrointestinal bleed, status post EGD showing gastric ulcers, status post colonoscopy with polypectomy and fulguration of AV malformation. 2. Severe dysuria with acute pansensitive Escherichia coli, urinary tract infection, present on admission. 3. Acute hepatic encephalopathy, resolved. 4. Controlled hypertension with chronic kidney disease 3. 5. Controlled type 2 diabetes mellitus. 6. Status post fall on 04/20/2020 with left hip and leg pain. 7. Probable osteoarthritis, bilateral knee pain. 8. History of atrial fibrillation. On admission WBCs 5.10, RBCs 2.18, hemoglobin 7, hematocrit 23.5, platelets 143. Sodium 151, potassium 3.7, chloride 117, CO2 of 26, BUN 48, creatinine 1.78, estimated GFR 28, glucose 124. Lactic acid 1.7, calcium 8.3, magnesium 2.1, total bilirubin 1.4, AST 35, ALT 17, alkaline phosphatase 142. Ammonia level 115. B-type natriuretic peptide 205.9, total protein 5.7, albumin 2.4. PT 31.6, INR 2.79, PTT 43.6. Fecal occult blood test positive on 04/21. Barry virus PCR not detected on 04/20. Hepatitis panel negative on 04/21 and 04/20. Urine culture showed pansensitive E coli. Blood cultures x2 showed no growth after 5 days, this is a final report. On 04/20, brain CT showed no acute abnormalities. Moderate chronic small-vessel ischemic changes, stable compared to the head CT done on 04/07/2020. Chest x-ray showed no acute thoracic abnormality. CT of the cervical spine showed no acute cervical spine posttraumatic abnormalities. Nuclear medicine GI bleed scan showed no scan evidence of acute gastrointestinal bleeding. On 04/24/2020, the patient underwent EGD and colonoscopy by Dr. Pedro Mcfadden. Normal esophagus, gastritis, upper body gastric ulcer approximately 6 mm in size without active bleeding. There was a transverse colon polyp, which was hot biopsied, underwent polypectomy showed diverticulosis, arteriovenous malformation, sigmoid colon, fulgurated with size 10-[place] Gold probe, internal hemorrhoids, none of which were actively bleeding. During her stay, the patient received 2 units of PRBCs. She was on Rocephin for the pansensitive E coli UTI, however, it is noted that she continues to complain of severe dysuria. A urinalysis was sent early this morning with nitrites and leukocyte esterases both negative, RBC greater than 50, WBC 21-50, few epithelial cells, moderate bacteria, 2-5 hyaline casts, hyperammonemia normalized. Most recent ammonia level 74. No longer has an altered mental status. She remains on beta-stefany and Lasix for hypertension. Hemoglobin A1c was 5.2%. Physical therapy does recommend custodial facility and she will be going to [facility] today. This morning temperature 98.2. She remains afebrile. Heart rate 69, respirations 18, blood pressure 115/52, pulse oximetry 97%. CBC today; WBC 3.85, RBC 2.59, hemoglobin 8.2, hematocrit 27.3, platelets 120. Sodium 142, potassium 5, chloride 113, CO2 of 26, anion gap 8, BUN 27, creatinine 1.23, estimated GFR 43, glucose 106, calcium 8.3. She will remain on ADA diet. Activity level as tolerated. Physical therapy at the facility. Follow up with Sol, nurse practitioner and Dr. Sprague at [facility]. Follow up with GI in 1-2 weeks. Follow up with dentist regarding bleeding gums. Report provided to Sol. Dictated by Nikunj Andres, BALAJI MD [facility]/MODL /[id number]
[2020-04-26 11:46] VITALS: BP 108/51
--- NOTE | 2020-04-26 13:45 | NUR ---
Report called to Aniya JOHNSON , Rodri Taveras
--- NOTE | 2020-04-26 14:20 | NUR ---
Talked to Patient's daughter Cynthia that patient is transferring to [facility], Patient is stable, not in any distress
[2020-04-26 16:05] VITALS: BP 112/52
--- NOTE | 2020-04-26 16:42 | NUR ---
[facility] returned, denies any pain, no distress noted, EMS here to pick her
== END 2020-04-26 17:11 | DRG 299 ==
LOC: ER 14:49 → ERHOLD 16:01 → MED/SURG2 20:27
PROVIDERS: ADMIT Internal Medicine; ATTEND Internal Medicine
PROC: 0D5N8ZZ Destruction of Sigmoid Colon, Via Natural or Artificial Opening Endoscopic (ICD-10-PCS; 2020-04-24)
PROC: 0DJ08ZZ Inspection of Upper Intestinal Tract, Via Natural or Artificial Opening Endoscopic (ICD-10-PCS; principal; 2020-04-24 12:18)
PROC: 0DBL8ZX Excision of Transverse Colon, Via Natural or Artificial Opening Endoscopic, Diagnostic (ICD-10-PCS; 2020-04-24 12:18)
DX: Q27.33 Arteriovenous malformation of digestive system vessel (principal); K72.00 Acute and subacute hepatic failure without coma; D62 Acute posthemorrhagic anemia; N39.0 Urinary tract infection, site not specified; M17.11 Unilateral primary osteoarthritis, right knee; B96.20 Unspecified Escherichia coli [E. coli] as the cause of diseases classified elsewhere; E11.9 Type 2 diabetes mellitus without complications; I48.91 Unspecified atrial fibrillation; Z79.01 Long term (current) use of anticoagulants; K57.90 Diverticulosis of intestine, part unspecified, without perforation or abscess without bleeding; K63.5 Polyp of colon; I12.9 Hypertensive chronic kidney disease with stage 1 through stage 4 chronic kidney disease, or unspecified chronic kidney disease; N18.3 Chronic kidney disease, stage 3 (moderate)
CPT/HCPCS: 36415; 43235; 45384; 70450; 71045; 72125; 78278; 80048; 80053; 80061; 81001; 82140; 82270; 82550; 82553; 82607; 82728; 82746; 82948; 83540; 83605; 83735; 83880; 84466; 84484; 85014; 85018; 85025; 85045; 85610; 85730; 86850; 86900; 86920; 87040; 87086; 87186; 87635; 88305; 93005; 97139; 99251; 99284; A9512; J0696; J1940; J2405; J3430; J7050; J7070; P9016; P9017

== ENCOUNTER 2020-06-02 14:02 | Inpatient (IN) | payer MEDICARE, OTHER ==
[2020-06-02] VITALS (10 sets, daily range): BP systolic 96–117; BP diastolic 40–60
[~2020-06-02] VITALS: Ht 165.1 cm; Wt 104.0 kg
[~2020-06-02 14:02] MED LIST changes: +ASCORBIC ACID500 MG PO; +CEFDINIR300 MG PO; +CEFTRIAXONE1 GM IV; +ELIQUIS2.5 MG PO; +FERROUS SULFAT325 MG PO; +LACTULOSE20 GM/30 M PO
[2020-06-02] MEDS ORDERED: PANTOPRAZOLE 40 MG 10ML VIAL IV STA (14:33)
[2020-06-02 14:56] LABS: BASOPHILS % 0.9 % (0.0-1.0); EOSINOPHILS # (AUTO) 0.2 (0.0-0.4); EOSINOPHILS % 3.7 % (0.0-6.0); LYMPHOCYTES % 22.7 % (18.0-39.1); MEAN CORPUSCULAR HEMOGLOBIN 29.2 pg (28-32); MEAN CORPUSCULAR HGB CONC 29.6 g/dL (31-35); MEAN CORPUSCULAR VOLUME 98.6 fL (81-99); MONOCYTES # (AUTO) 0.6 (0.2-0.8); MONOCYTES % 12.9 % (4.4-11.3); NEUTROPHILS # (AUTO) 2.5 (2.1-6.9); NEUTROPHILS % 59.3 % (38.7-80.0); PLATELET COUNT 164 x10e3/uL (140-360); RED BLOOD COUNT 2.16 x10e6/uL (3.6-5.1)
[2020-06-02 15:01] LABS: HEMATOCRIT 21.3 % (34.2-44.1); HEMOGLOBIN 6.3 g/dL (12.0-16.0)
--- OUTSIDE RECORDS SUMMARY | 2020-06-02 15:03 | XMS REPORT | Continuity of Care Document ---
Author Author [employer]AMAURY [employer] Information [employer] Address Unknown Phone Unavailable Care Team Providers Care Political Organizer Name Role Phone [employer] Unavailable Un available Problems Problem Status Onset Date Classification Date Reported Comments Source UNK Active 1 12/15/2015 [facility] DIZZINESS Active 12/01/2012 [facility] Diabetes mellitus (disorder) R esolved Problem 08/2020 [facility] REGINE Reyesor e Hypertensive disorder, systemic arterial (disorder) Resolved Problem 03/28/2020 [facility] REGINE Cruz Atrial fibrillation Active Diagnosis 06/22/2014 [facility] Essential hypertension, benign Active Diagnosis 0 06/22/2014 [facility] Congestive heart failure, unspecified Active Diagnosis 06/22/2014 [facility] Dizziness and giddiness Active Diagnosis 06/22/2014 [facility] Pain in soft tissues of limb A ctive Diagnosis 0 06/22/2014 [facility] 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 Inactive 10/17/2016 [facility] 24 HR Metoprolol Tartrate 100 MG Extende d Release Tablet [Toprol] Notes: (Same as: Toprol XL) May split t ab, but do not crush. Inactive 10/17/2016 [facility] Isosorbide Notes: (Same as:Imd ur) "Do Not Crush" Take on empty stomach/ full glass of water. Inactive 10/17/2016 [facility] Hydrochlorothiazide 25 MG / Triamterene 37.5 MG Oral Capsule Notes: (triamterene-hydrochlorothiazide 37.5-25 mg TAB) (Same As: Maxzide- 25) Inactive 10/17/2016 [facility] Esomeprazole 40 mg, Route: PO, Drug form: ECCAP, Daily, Dosing Weight 99.545, kg, Start date: 10/17/16 9:00:00 SEED EXPERT, Duration: 30 day, Stop date: 11/15/16 9:00:00 SEED EXPERT No Longer Active 10/17/2016 [facility] celecoxib Notes: NSAID. Please check indication. Not for seizure. (Same As: CeleBREX) Inactive 10/17/2016 [facility] Protonix Notes: Tablet should not be chewed or crushed. (Same as: Protonix) Inactive 10/17/2016 [facility] influenza virus vaccine, inactivated Notes: (Same as: Fluzone Quadrivalent, Fluarix Quadrivalent) For 3 years of age and older (0.5 mL IM) Shake well before use Inactive 10/16/2016 [facility] Glipizide 5 MG Oral Tablet Not es: (Same as: Glucotrol) 30 min before meals. No Longer Active 10/16/2016 [facility] Glucagon 1 mg, Route: IM, Drug form: PDR/INJ, PRN, Dosing Weight 99.545, kg, PRN Blood Glucose Results, Start date: 10/16/16 13:15:00 SEED EXPERT, Duration: 30 day, Stop date: 11/15/16 13:14:00 SEED EXPERT No Longer Active 10/16/2016 [facility] Dextrose 50% Syringe 12.5 gm, 25 mL, Route: IVP, Drug Form: INJ, Dosing Weight 99.545, kg, PRN, PRN Blood Glucose Results, Start date: 10/16/16 13:15:00 SEED EXPERT, Duration: 30 day, Stop date: 11/15/16 13:14:00 SEED EXPERT No Longer Active 10/16/2016 [facility] Insulin, Aspart, Human Notes: Roll in palms of hands gently; Do not shake vigorously. (Same as: NovoLOG) "single patient use only" WASTE: F/P - Black; E - [employer] Trash Bin Stable for 28 days at room temperature. Expires in days from Date No Longer Active 10/16/2016 [facility] Lyrica Notes: Same as Lyrica No Longer Active 10/16/2016 [facility] tramadol hydrochloride 50 MG Oral Tablet Notes: Not to exceed 400mg/day. (Same As: Ultram) No Longer Active 10/16/2016 [facility] acetaminophen-codeine #3 Notes : Do not exceed 4gm/day of acetaminophen. (Same as: Tylenol with Codeine # 3) No Longer Active 10/16/2016 [facility] Vancomycin 2001 mg: infuse ov er 2.5 hours MEDICATION WASTE Product Size: 1000 mg Product Wasted: ___ mg Inactive 10/16/2016 [facility] Glipizide 5 MG Oral Tablet 5 m g = 1 tab, PO, BID-Before Meals, # 30 tab, 1 Refill(s) Active 10/15/2016 [facility] apixaban 5 MG Oral Tablet [Eliquis] 5 mg = 1 tab, PO, Daily, 0 Refill(s) Active 10/15/2016 [facility] metoprolol 100 mg oral tablet, extended release 100 mg = 1 tab, PO, Daily, # 30 tab, 0 Refill(s) Active 10/15/2016 [facility] pregabalin 50 MG Oral Capsule [Lyrica] 50 mg = 1 cap, PO, TID, 0 Refill(s) Active 10/15/2016 [facility] tramadol hydrochloride 50 MG Oral Tablet 50 mg = 1 tab, PO, Q6H, PRN Pain, # 40 tab, 0 Refill(s) Active 10/15/2016 [facility] dronedarone 400 MG Oral Tablet [Multaq] 400 mg = 1 tab, PO, BID, # 60 tab, 0 Refill(s) Active 10/15/2016 [facility] Esomeprazole 40 MG Enteric Coated Capsule 40 mg = 1 cap, PO, Daily, # 30 cap, 0 Refill(s) Active 10/15/2016 [facility] Metformin hydrochloride 500 MG Oral Tablet 500 mg = 1 tab, PO, BID-Meals, # 30 tab, 0 Refill(s) Active 10/15/2016 [facility] celecoxib 200 mg oral capsule 200 mg = 1 cap, PO, Daily, # 30 cap, 0 Refill(s) Active 10/15/2016 [facility] isosorbide mononitrate 30 mg oral tablet , extended release 30 mg = 1 tab, PO, QAM, # 30 tab, 0 Refill(s) Active 10/15/2016 [facility] Hydrochlorothiazide 25 MG / Triamterene 37.5 MG Oral Capsule 1 cap, PO, Daily, # 30 cap, 0 Refill(s) Active 10/15/2016 [facility] Thyroxine Daily, 0 Refill(s) Active 10/15/2016 [facility] Metoprolol Succinate 1 TABLET Orally Active 100 MG Orally ONCE A DAY Rose Mary 06/13/2014 [facility] Triamterene-HCTZ 1 tablet in t he morning Orally Active 37.5-25 MG Orally Once a day Rose Mary 06/13/2014 [facility] Eliquis as directed Orally Active 5 MG Orally twice a day . Rose Mary 06/13/2014 [facility] Metoprolol as directed Orally Active 100 MG Orally [facility] Levothyroxine Sodium 1 tablet on an empty stomach in the morning Orally Active 75 MCG Orally Once a day Mara by [facility] Vitamin D (Ergocalciferol) 1 c apsule Orally Active 24057 UNIT Orally [facility] Isosorbide Mononitrate CR 1 ta blet Orally Active 30 MG Orally Once a day [facility] Metformin as direct NA Active 500 mg Once a day [facility] Triamterene 1 capsule Orally Active 37.5 MG Orally Once a d ay [facility] Xarelto 1 tablet with food Orally Active 20 MG Orally Once a day [facility] Amiodarone 1/2 tab orally Active 200 mg orally once a da y [facility] GlipiZIDE 1 tablet Orally Active 5 MG Orally Once a day [facility] Warfarin Sodium 1 tablet Orally Active 5 MG Orally Two times a Week [facility] Ciprofloxacin 500 mg BID 7d on e tab orally Active 500 mg orally every 12 hours [facility] Metoprolol as directed Orally Active 100 MG Orally [facility] Allergies, Adverse Reactions, Alerts Substance Category Reaction Severity Reaction type Status Date Reported Comments Source N.K.D.A. Adverse Reaction Info Not Available Adverse Reaction Active 06/13/2014 [facility] Solu-MEDROL Assertion Drug allergy Active [facility] Immunizations Immunization Date Given Site Status Last Updated Comments Source influenza virus vaccine, inactivated 10/16/2016 Right deltoid completed [place] [facility] Results Order Name Results Value Reference Range Date Interpretation Comments Source CHEM PANEL eGFR 50 10/15/2016 Result Comment: The eGFR is calculated [...] should be multiplied by the estimated BMI. [facility] CHEM PANEL Potassium Lvl 4.3 3.5 - 5.1 10/15/2016 [facility] CHEM PANEL Chloride Lvl 111 95 - 109 10/15/2016 [facility] CHEM PANEL CO2 25 24 - 32 10/15/2016 [facility] CHEM PANEL Calcium Lvl 9.2 8.5 - 10.5 10/15/2016 [facility] CHEM PANEL Creatinine Lvl 1.10 0.50 - 1.40 10/15/2016 [facility] CHEM PANEL BUN 24 7 - 22 10/15/2016 [facility] CHEM PANEL Sodium Lvl 143 135 - 145 10/15/2016 [facility] CHEM PANEL Glucose Lvl 162 70 - 99 10/15/2016 [facility] CHEM PANEL AGAP 11.3 10.0 - 20.0 10/15/2016 [facility] HEMATOLOGY Lymphocytes # 1.3 1.0 - 5.5 10/15/2016 [facility] HEMATOLOGY Segs-Bands # 3.6 1.5 - 8.1 10/15/2016 [facility] HEMATOLOGY Monocytes # 0.6 0.0 - 0.8 10/15/2016 [facility] HEMATOLOGY Basophils 0.7 0.0 - 1.0 10/15/2016 [facility] HEMATOLOGY Eosinophils # 0.2 0.0 - 0.5 10/15/2016 [facility] HEMATOLOGY Segs 62.5 45.0 - 75.0 10/15/2016 [facility] HEMATOLOGY Lymphocytes 22.7 20.0 - 40.0 10/15/2016 [facility] HEMATOLOGY Eosinophils 3.4 0.0 - 4.0 10/15/2016 [facility] HEMATOLOGY Monocytes 10.7 2.0 - 12.0 10/15/2016 [facility] HEMATOLOGY PTT 32.6 22.9 - 35.8 10/15/2016 [facility] HEMATOLOGY INR 1.26 0.85 - 1.17 10/15/[address] [facility] PT 16.1 12.0 - 14.7 10/15/[address] [facility] MCH 31.1 27.0 - 31.0 10/15/[address] [facility] MCV 95.1 80.0 - 98.0 10/15/[address] [facility] MCHC 32.7 32.0 - 36.0 10/15/[address] [facility] Hct 42.7 36.0 - 48.0 10/15/[address] [facility] MPV 9.9 7.4 - 10.4 10/15/[address] [facility] Platelet 135 133 - 450 10/15/[address] [facility] RDW 14.0 11.5 - 14.5 10/15/[address] [facility] RBC 4.49 4.20 - 5.40 10/15/[address] [facility] WBC 5.8 3.7 - 10.4 10/15/[address] [facility] Hgb 14.0 12.0 - 16.0 10/15/2016 [facility] Pathology Reports No Data Provided for This Section Diagnostic Reports Report Value Date Source Spine lumbar wo contrast CT EXAMINATION: CT lumbar spine without contrast DATE: 03/26/2020 INDICATION: Spondylosis. FINDINGS: Noncontrast CT images of the lumbar spine are compared to a CT of the abdomen dated 12/19/2009. There are 6 nonrib-bearing vertebral bodies. There are no images of the thoracic spine available to confirm the number of ribs. This study will address the first nonrib-bearing body as T12 in the remainder is L1-5 with the lumbosacral junction at L5-S1. At T12-L-1, there is been progressive spondylitic change with enlargement of anterior marginal osteophytes. A calcified mild diffuse disc bulge is present posteriorly with mild canal stenosis. At L1-L2, there is a chronic calcified central disc protrusion with mild stenosis of the central canal. There is no nerve root impingement. Neural foramina are widely patent. At L2-L3, there is vacuum phenomenon, and marked loss the right half the disc space associated with levoscoliotic curvature. There is severe stenosis the right neural foramen due to vertebral body osteophytes, loss of height, and some facet arthropathy. Findings are essentially unchanged in comparison. Calcified central disc protrusions are also present contributing to moderate central canal stenosis at this level. At L3-L4, similar findings are present. There is vacuum phenomenon, and marked loss of the height of the disc on the right side associated with scoliotic curvature and right-sided diffuse disc bulging. There is stenosis the right lateral recess and right neural foramen due to both loss of height, bulging disc, and right-sided facet arthropathy. The central canal is mildly stenotic, in the left neural foramen is patent. At L4-L5, there is been progression of disc degeneration with development of vacuum phenomenon and loss of disc height in the left half the disc space, there is been some progression of anterolisthesis and rotatory subluxation. There is moderate canal stenosis and there is severe left neural foraminal stenosis and moderate right neural foraminal stenosis due to facet hypertrophy, bulging disc, and subluxation in addition to loss of height. At L5-S1, a left lateral disc protrusion is again noted associated with some anterior subluxation of the left half the disc space. There is severe stenosis of the left neural foramen, stable from comparison. Advanced bilateral facet arthropathy present. IMPRESSION: There is been advancement of degenerative changes chiefly at the L4-L5 level, where anterior and rotatory subluxation at progressed, and there is been worsening canal and left neural foraminal stenosis. 03/26/2020 [facility] Chest 2 views DX Patient Name: AMAURY CONTE : 1945; Age: 71 years Female MR: [id number] Study: Chest 2 views DX Order Time: 10/17/2016 3:00 AM SEED EXPERT CLINICAL INDICATION: Line Placement ADDITIONAL HISTORY: None COMPARISON: Chest radiograph on 10/16/2016 FINDINGS: Lines: Stable position of the left chest pacemaker. Lungs: Hyperinflated lungs. Linear scarring and/or atelectasis within the left midlung. No effusion or pneumothorax. Mediastinum: The cardiac silhouette is mildly enlarged. Midline trachea. Bones and soft tissues: Unremarkable. IMPRESSION: No acute cardiopulmonary abnormalities. SL: [id number] 10/17/2016 [facility] Chest 1view DX Patient Name: AMAURY CONTE : 1945; Age: 71 years y/o Female MR: [id number] Study: Chest 1view DX 10/16/2016 11:25 AM SEED EXPERT Ordering Physician: MD Omer Zelaya MD Clinical [...] pneumothorax seen. No other new/acute findings. SL: [id number] 10/16/2016 [facility] Consultation Notes No Data Provided for This Section Discharge Summaries No Data Provided for This Section History and Physicals No Data Provided for This Section Vital Signs Vital Sign Value Date Comments Source Respitory Rate 16 10/17/2016 [facility] Systolic (mm Hg) 97 10/17/2016 [facility] Diastolic (mm Hg) 59 10/17/2016 [facility] Heart Rate 71 10/17/2016 [facility] Temperature Oral (F) 98.1 F 10/17/2016 [facility] Systolic (mm Hg) 111 10/17/2016 [facility] Diastolic (mm Hg) 63 10/17/2016 [facility] Respitory Rate 18 10/17/2016 [facility] Temperature Oral (F) 98.1 F 10/17/2016 [facility] Heart Rate 79 10/17/2016 [facility] Respitory Rate 16 10/17/2016 [facility] Systolic (mm Hg) 130 10/17/2016 [facility] Diastolic (mm Hg) 72 10/17/2016 [facility] Heart Rate 85 10/17/2016 [facility] Temperature Oral (F) 98.1 F 10/17/2016 [facility] BMI Calculated 41.47 10/15/2016 [facility] Height 154.94 cm 10/15/2016 [facility] Weight 99.545 10/15/2016 [facility] Weight 232 06/13/2014 [facility] Heart Rate [...] Provider ADM Date DC Date Status Source [facility] Emergency [id number] THELMA BARCENAS 12/01/2012 12/01/2012 Discharged [facility] Rose Mary MCMILLAN PA ECHO [id number] 02/23/20 14 02/22/2014 [facility] Rose Mary MCMILLAN PA ECHO [id number] 02/23/20 14 02/22/2014 [facility] Rose Mary MCMILLAN PA ECHO [id number] 02/23/20 14 02/22/2014 [facility] Rose Mary MCMILLAN PA ECHO [id number] 02/23/20 14 02/22/2014 [facility] Rose Mary JACOBSON ECHO [id number] 02/23/20 14 02/22/2014 [facility] Rose Mary JACOBSON ECHO [id number] 02/23/20 14 02/22/2014 [facility] Rose Mary MCMILLAN PA ECHO [id number] 02/23/20 14 02/22/2014 [facility] Rose Mary MCMILLAN PA ECHO [id number] 02/23/20 14 02/22/2014 [facility] Rose Mary MCMILLAN PA F/U FOR ECHO [id number] 02/23/20 14 02/22/2014 [facility] Rose Mary MCMILLAN PA F/U FOR ECHO [id number] 02/23/20 14 02/22/2014 [facility] Rose Mary MCMILLAN PA F/U FOR ECHO [id number] 02/23/20 14 02/22/2014 [facility] Rose Mary MCMILLAN PA F/U FOR ECHO [id number] 02/23/20 14 02/22/2014 [facility] Rose Mary MCMILLAN PA F/U FOR ECHO [id number] 02/23/20 14 02/22/2014 [facility] Rose Mary MCMILLAN PA F/U FOR ECHO [id number] 02/23/20 14 02/22/2014 [facility] Rose Mary MCMILLAN PA F/U FOR ECHO [id number] 02/23/20 14 02/22/2014 [facility] Rose Mary MCMILLAN PA F/U FOR ECHO [id number] 02/23/20 14 02/22/2014 [facility] Rose Mary MCMILLAN PA Refills [id number] 05/01/20 14 05/01/2014 [facility] Rose Mary MCMILLAN PA Refills [id number] 05/01/20 14 05/01/2014 [facility] Rose Mary MCMILLAN PA Refills [id number] 05/01/20 14 05/01/2014 [facility] Rose Mary MCMILLAN PA Refills [id number] 05/01/20 14 05/01/2014 [facility] Rose Mary MCMILLAN PA Refills [id number] 05/01/20 14 05/01/2014 [facility] Rose Mary MCMILLAN PA Refills [id number] 05/01/20 14 05/01/2014 [facility] Rose Mary MCMILLAN PA Refill [id number] 05/03/20 14 05/03/2014 [facility] Rose Mary MCMILLAN PA Refill [id number] 05/03/20 14 05/03/2014 [facility] Rose Mary MCMILLAN PA Refill [id number] 05/03/20 14 05/03/2014 [facility] Rose Mary MCMILLAN PA Refill [id number] 05/03/20 14 05/03/2014 [facility] Rose Mary MCMILLAN PA Refill [id number] 05/03/20 14 05/03/2014 [facility] Rose Mary MCMILLAN PA Refill [id number] 05/03/20 14 05/03/2014 [facility] Rose Mary MCMILLAN PA Refills [id number] 05/03/20 14 05/03/2014 [facility] Rose Mary MCMILLAN PA Refills [id number] 05/03/20 14 05/03/2014 [facility] Rose Mary MCMILLAN PA Refills [id number] 05/03/20 14 05/03/2014 [facility] Rose Mary MCMILLAN PA Refills [id number] 05/03/20 14 05/03/2014 [facility] Rose Mary John MCMILLAN PA Refills [id number] 05/03/20 14 05/03/2014 [facility] Rose Mary John MCMILLAN PA Refills [id number] 05/03/20 14 05/03/2014 [facility] Rose Mary John JACOBSON Unknown [id number] 05/03/20 14 05/03/2014 [facility] Rose Mary John JACOBSON Unknown [id number] 05/03/20 14 05/03/2014 [facility] Rose Marynhan JACOBSON Unknown [id number] 05/03/20 14 05/03/2014 [facility] Rose Marynhan JACOBSON Unknown [id number] 05/03/20 14 05/03/2014 [facility] Rose Mary John JACOBSON Unknown [id number] 05/03/20 14 05/03/2014 [facility] Rose Mary JACOBSON Unknown [id number] 05/03/20 14 05/03/2014 [facility] Rose Marynhan JACOBSON medicatins [id number] 06/13/20 14 06/13/2014 [facility] Rose Marynhan JACOBSON medicatins [id number] 06/13/20 14 06/13/2014 [facility] Rose Marynhan MCMILLAN PA REFILL [id number] 06/13/20 14 06/13/2014 [facility] Rose Mary MCMILLAN PA REFILL [id number] 06/13/20 14 06/13/2014 [facility] Bedded Outpatient [id number] Omer Zelaya 10/16/2016 10/17/2016 [facility] [id number] Homer Castellanosaraz 03/26/2020 03/27/2020 [facility] Procedures Procedure Code Date Perfomer Comments Source Appendectomy [id number] [facility] Cholecystectomy [id number] [facility] Hysterectomy [id number] [facility] Lumbar spinal fusion [id number] [facility] Assessment and Plan No Data Provided for This Section Plan of Care No Data Provided for This Section Social History Social History Date Source Social History TypeResponse Smoking Status Never smoker; Exposure to Tobacco Smoke None; Cigarette Smoking Last 365 Days No; Reg Smoking Cessation Counseling No 10/15/2016 [facility] Social History TypeResponse Smoking Status Never smoker; Exposure to Tobacco Smoke None; Cigarette Smoking Last 365 Days No; Reg Smoking Cessation Counseling No entered on: 10/15/16 10/15/2016 [facility] Social History ElementQualifiersDate Rep orted Diet: . Are you on a special diet? Yes, What type? diabetes Jun 13, 2014 Caffeine: . Do you drink caffeine? Yes, How much a day? 1 cup, What type? Coffee diet coke every other day Jun 13, 2014 Exercise: . Do you exercise? Yes, How often? Jesse y, What type of exercise? Walking Jun 13, 2014 Smoking: . Are you a: Former smoker Jun 13, 2014 Alcohol: . Do you drink alcohol? No Jun 13, 2014 06/13/2014 [facility] Family History Value Date S ource QualifierDescriptionCommentDate Reported Mother HTN February 22, 2014 Children son has sleep apnia February 22, 2014 Father stroke and HTN February 22, 2014 Siblings one sister has memory problems February 22, 2014 02/23/2014 [facility] Advance Directives No Data Provided for This Section Functional Status No Data Provided for This Section
--- OUTSIDE RECORDS SUMMARY | 2020-06-02 15:04 | XMS REPORT | Continuity of Care Document ---
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 Name Role Phone JUAN, DO Rose DHALIWAL PCP HUE PETERSON Attphys Unavailable Marielle NEWMAN AMBICA Attphys Unavailable Sofi Benz Attphys Carolee BONNER Attphys Unavailable Omer Pitt Attphys HUE PETERSON Admphys Unavailable Payers Payer Name Policy Type Policy Number Effective Date Expiration Date Marielle tam [facility] Medicare Complete [id number] 2020 00:00:00 [facility] Cdc Review Covid19 [id number] [facility] [id number] 2018 00:00:00 [facility] Problems Condition Name Condition Details Condition Category Status Onset Date Resolution Date Last Treatment Date Treating Clinician Comments Source TALI CESAR Active 10/14/2016 [facility] Active 2016-10-14 00:00:00 2016-10-24 07:28:00 Sofi Faust DIZZINESS DIZZ INESS Active 12/01/2012 [facility] Diagnosis Active 2012-12-01 00:00:00 2012-12-01 18:43:00 Osbaldo Faust Chronic atrial fibrillation Atrial fibrillation, chronic Problem Active [facility] Balance problems Balance problem Problem Active [facility] Vertigo Vertigo Problem Active [facility] Altered mental status Problem Active [facility] Macrocytic anemia Problem Active [facility] Acute renal insufficiency Problem Active [facility] Hypernatremia Problem Active [facility] Back pain Problem Active [facility] Hepatic encephalopathy Problem Active [facility] Renal insufficiency Problem Active [facility] Hyperbilirubinemia Problem Active [facility] Coagulation disorder Problem Active [facility] Urinary tract infection Problem Active [facility] Diabetes mellitus (disorder) D iabetes mellitus (disorder) Resolved Problem 03/28/2020 [facility] [place] Problem Resolved 2020-03-28 23:28:22 Isrrael Faust Hypertensive disorder, systemic arterial (disorder) Hypertensive disorder, systemic arterial (disorder) Resolved Problem 03/28/2020 [facility] [place] Problem Resolved 2020-03-28 23 :28:22 Osbaldo Faust Atrial fibrillation Atri al fibrillation Active Diagnosis 06/22/2014 [facility] Active 2014-06-22 02:59:33 Osbaldo Faust Essential hypertension, benign Essential hypertension, benign Active Diagnosis 06/22/2014 [facility] Active 2014-06-22 02:59:33 Osbaldo Faust Congestive heart failure, unspecified Congestive heart failure, unspecified Active Diagnosis 06/22/2014 [facility] Active 2014-06-22 02:59:33 Isrrael Faust Dizziness and giddiness Dizz iness and giddiness Active Diagnosis 06/22/2014 [facility] Active 2014-06-22 02:59:33 Osbaldo Faust Pain in soft tissues of limb P ain in soft tissues of limb Active Diagnosis 06/22/2014 [facility] Active 2014-06-22 02:59:33 Osbaldo Faust 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 Varicose veins of the lower extremities with other complications Active Diagnosis 06/22/2014 [facility] Active 2014-06-22 02:59:33 Osbaldo Faust Allergies, Adverse Reactions, Alerts Allergy Name Allergy Type Status Severity Reaction(s) Onset Date Inacti ve Date Treating Clinician Comments Source STEROIDS Allergy to substance Active 2018-11-10 00:00:00 [facility] Griselda Villalobos Active Info Not Available 2014-06-13 00:00:00 [facility] Neuromuscular Blockers, Steroidal DA Active U 2012-02-12 00:00:00 [facility] Solu-MEDROL Solu-MEDROL Active [facility] Family History Family Member Diagnosis Comments Start Date Stop Date Source Unknown Family Member Family History 2014-02-23 04:18:31 2 04:18:31 [facility] Social History Social Habit Start Date Stop Date Quantity Comments Source Diet: 2014-06-13 00:00:00 2014-06-13 00:00:00 [facility] Sex Assigned At 1945 00:00:00 1945 00:00:00 Female [facility] Smoking Status Start Date Stop Date Source Social History [facility] Medications Ordered Medication Name Filled Medication Name Start Date Stop Da te Current Medication? Ordering Clinician Indication Dosage Frequency Signature (SIG) Comments Components Source Ceftriaxone Sodium (Ceftriaxone) 1 Gm VIAL Ceftriaxone Sodium (Ceftriaxone) 1 Gm VIAL 2020-04-26 09:51:00 Yes 1 Daily [facility] Apixaban (Eliquis) 2.5 Mg TABLET Apixaban (Eliquis) 2.5 Mg T ABLET 2020-04-22 09:25:00 Yes 2.5 Every 12 Hours [facility] Lactulose Lactulose 2020-04-21 09:12:00 Yes 30 Daily @0600 [facility] Ascorbic Acid Ascorbic Acid 2020-04-21 09:06:00 Yes 500 Daily [facility] Ferrous Sulfate Ferrous Sulfate 2020-04-21 09:06:00 Yes 325 Daily@0600 [facility] Meclizine Hcl Meclizine Hcl 2020-04-21 09:06:00 Yes 25 Twice A Day as needed for Dizziness [facility] Pantoprazole Sodium (Protonix) 40 Mg TABLET. Pantopr azole Sodium (Protonix) 40 Mg TABLET. 2020-04-21 09:06:00 Yes 40 Before [place] kfast [facility] Tramadol Hcl (Ultram) 50 Mg TABLET Tramadol Hcl (Ultram) 50 Mg TABLET 2020-04-20 01:00:00 Yes 50 Every 6 Ho urs as needed for Mild Pain (1-3) Or Fever>100.8 [facility] Pantoprazole Sodium (Protonix) 40 Mg TABLET. Pantopr azole Sodium (Protonix) 40 Mg TABLET. 2020-04-09 10:43:00 2020-04-21 00:00:00 No 40 Before Breakfast [facility] Baclofen Baclofen 2018-11-11 10:52:00 2020-04-07 00:00:00 No 5 Every 12 Hours as needed for Muscle Spasm [facility] Fluticasone Propionate Fluticasone Propionate 2018-11-11 10:52:0 0 2020-04-07 00:00:00 No 0 Twice A Day [facility] Meclizine Hcl Meclizine Hcl 2018-11-11 10:52:00 2020-04-07 00:00:00 No 25 Every 6 Hours as needed for Vertigo [facility] Pregabalin (Lyrica) 50 Mg CAP Pregabalin (Lyrica) 50 Mg CAP 2018 10:52:00 2020-04-07 00:00:00 No 50 Three Times A Day as needed for Pain [facility] Minocycline 2016-10-17 15:00:00 No Notes: (Same as:Minocin) No milk/antacids/iron. Osbaldo Faust 24 HR Metoprolol Tartrate 100 MG Extended Release Tablet [To prol] 2016-10-17 15:00:00 No Notes: (Sa me as: Toprol XL) May split tab, but do not crush. Osbaldo Faust Isosorbide 2016-10-17 15:00:00 No Notes: (Same as:Imdur) "Do Not Crush" Take on empty stomach/ full glass of water. Osbaldo Faust Hydrochlorothiazide 25 MG / Triamterene 37.5 MG Oral Capsule 2016-10-17 15:00:00 No Notes: (tr iamterene-hydrochlorothiazide 37.5-25 mg TAB) (Same As: Maxzide-25) [facility] Esomeprazole 2016-10-17 15:00:00 No 40 mg, Route: PO, Drug form: ECCAP, Daily, Dosing Weight 99.545, kg, Start date: 10/17/16 9:00:00 PUSH [employer]ER, Duration: 30 day, Stop date: 11/15/16 9:00:00 PUSH [employer] ASSEM[employer]ER [facility] celecoxib 2016-10-17 15:00:00 No Notes: NSAID. Please check indication. Not for seizure. (Same As: CeleBREX) [facility] Protonix 2016-10-17 13:30:00 No Notes: Tablet should not be chewed or crushed. (Same as: Protonix) [facility] influenza virus vaccine, inactivated 2016-10-16 22:30:00 No Notes: (Same as: Fluzone Quadrivalent, Fluarix Quadrivalent) For 3 years of age and older (0.5 mL IM) Shake well before use [facility] Glipizide 5 MG Oral Tablet 2016-10-16 22:30:00 No Notes: (Same as: Glucotrol) 30 min before meals. Cristian penn Govind Glucagon 2016-10-16 19:15:00 No 1 mg, Route: IM, Drug form: PDR/INJ, PRN, Dosing Weight 99.545, kg, PRN Blood Glucose Results, Start date: 10/16/16 13:15:00 PUSH [employer]SEM[employer]ER, Duration: 30 day, Stop date: 11/15/16 13:14:00 PUSH [employer] SW[employer] ASSEM[employer]ER [facility] Dextrose 50% Syringe 2016-10-16 19:15:00 No 12.5 gm, 25 mL, Route: IVP, Drug Form: INJ, Dosing Weight 99.545, kg, PRN, PRN Blood Glucose Results, Start date: 10/16/16 13:15:00 PUSH [employer] SWITCH ASSEMBLER, Duration: 30 day, Stop date: 11/15/16 13:14:00 PUSH BUT[employer] SWITCH ASSEMBLER [facility] Insulin, Aspart, Human 2016-10-16 19:15:00 No Notes: Roll in palms of hands gently; Do not shake vigorously. (Same as: NovoLOG) "single patient use only" WASTE: F/P - Black; E - Municipal Trash Bin Stable for 28 days at room temperature. Expires in days from Date Osbaldo Godineza 2016-10-16 19:00:00 No Notes: Same a s Owen Faust tramadol hydrochloride 50 MG Oral Tablet 2016-10-16 17:26:00 No Notes: Not to exceed 400mg/day. (Same As: Ultram) Osbaldo Faust acetaminophen-codeine #3 2016-10-16 17:25:00 No Notes: Do not exceed 4gm/day of acetaminophen. (Same as: Tylenol with Codeine # 3) Osbaldo Faust Vancomycin 2016-10-16 17:25:00 No 2001 mg: infuse over 2.5 hours MEDICATION WASTE Product Size: 1000 mg Product Wasted: ___ mg Osbaldo Faust Glipizide 5 MG Oral Tablet 2016-10-15 16:47:00 Yes 5 mg = 1 tab, PO, BID-Before Meals, # 30 tab, 1 Refill(s) Osbaldo Faust apixaban 5 MG Oral Tablet [Eliquis] 2016-10-15 16:46:00 Yes 5 mg = 1 tab, PO, Daily, 0 Refill(s) Osbaldo Terrence riley metoprolol 100 mg oral tablet, extended release 2016-10-15 16:46 :00 Yes 100 mg = 1 tab, PO, Daily, # 30 tab, 0 Refill(s) Osbaldo Faust pregabalin 50 MG Oral Capsule [Lyrica] 2016-10-15 16:46:00 Yes 50 mg = 1 cap, PO, TID, 0 Refill(s) Osbaldo Faust tramadol hydrochloride 50 MG Oral Tablet 2016-10-15 16:46:00 Yes 50 mg = 1 tab, PO, Q6H, PRN Pain, # 40 tab, 0 Refill(s) Osbaldo Faust dronedarone 400 MG Oral Tablet [Multaq] 2016-10-15 16:45:00 Yes 400 mg = 1 tab, PO, BID, # 60 tab, 0 Refill(s) Osbaldo Faust Esomeprazole 40 MG Enteric Coated Capsule 2016-10-15 16:45:00 Yes 40 mg = 1 cap, PO, Daily, # 30 cap, 0 Refill(s) [facility] Metformin hydrochloride 500 MG Oral Tablet 2016-10-15 16:45:00 Yes 500 mg = 1 tab, PO, BID-Meals, # 30 tab, 0 Refill(s) [facility] celecoxib 200 mg oral capsule 2016-10-15 16:44:00 Yes 200 mg = 1 cap, PO, Daily, # 30 cap, 0 [facility]ill(s) [facility] isosorbide mononitrate 30 mg oral tablet, extended release 2016-10-15 16:44:00 Yes 30 mg = 1 tab, PO, QAM, # 30 ta b, 0 Refill(s) [facility] Hydrochlorothiazide 25 MG / Triamterene 37.5 MG Oral Capsule 2016-10-15 16:44:00 Yes 1 cap, PO, Daily, # 30 cap, 0 Refill(s) [facility] Thyroxine 2016-10-15 16:29:00 Yes Daily, 0 R efill(s) [facility] Levothyroxine Sodium 2014-06-22 02:59:33 Yes John Molina laby 1 tablet on an empty stomach in the morning Isrrael Faust Vitamin D (Ergocalciferol) 2014-06-22 02:59:33 Yes Davi ed Rose Mary 1 capsule [facility] Isosorbide Mononitrate CR 2014-06-22 02:59:33 Yes Dre d Rose Mary 1 tablet [facility] Metformin 2014-06-22 02:59:33 Yes John Bazzi as direct [facility] Triamterene 2014-06-22 02:59:33 Yes John Rose Mary 1 capsule [facility] Xarelto 2014-06-22 02:59:33 Yes John Rose Mary 1 tablet with food [facility] Amiodarone 2014-06-22 02:59:33 Yes John Rose Mary 1/2 tab [facility] GlipiZIDE 2014-06-22 02:59:33 Yes John Rose Mary 1 tablet [facility] Warfarin Sodium 2014-06-22 02:59:33 Yes John Rose Mary 1 tablet [facility] Ciprofloxacin 500 mg BID 7d 2014-06-22 02:59:33 Yes [place] med Rose Mary one tab [facility] Metoprolol 2014-06-22 02:59:33 Yes John Rose Mary as directed [facility] Metoprolol Succinate 2014-06-13 00:00:00 Yes John Bazzi 1 TABLET [facility] Triamterene-HCTZ 2014-06-13 00:00:00 Yes John Bazzi 1 tablet in the morning [facility] Eliquis 2014-06-13 00:00:00 Yes John cole directed [facility] Metoprolol 2014-02-23 04:18:31 Yes John Bazzi as directed [facility] Fenofibrate Nanocrystallized (Fenofibrate) 145 Mg TABL ET Fenofibrate Nanocrystallized (Fenofibrate) 145 Mg TABLET Yes 160 Daily [facility] Furosemide (Lasix) 20 Mg TABLET Furosemide (Lasix) 20 Mg TABLET Yes 20 Daily [facility] Isosorbide Mononitrate (Isosorbide Mononitrate Er) 30 Mg TAB.ER.24H Isosorbide Mononitrate (Isosorbide Mononitrate Er) 30 Mg TAB.ER.24H Yes 30 Daily [facility] Levothyroxine Sodium Levothyroxine Sodium Yes 88 Daily [facility] Lisinopril Lisinopril Yes 20 Daily [facility] Mecobalamin (B12 Active) 1,000 Mcg TAB.CHEW Mecobalami n (B12 Active) 1,000 Mcg TAB.CHEW Yes 1 Daily [facility] Metoprolol Succinate Metoprolol Succinate Yes 1 Daily [facility] Apixaban (Eliquis) 5 Mg TAB.DS.PK Apixaban (Eliquis) 5 Mg TAB.DS .PK 2020-04-22 00:00:00 No 1 Twice A Day [facility] Iron Iron 2020-04-21 00:00:00 No 65 Daily [facility] Meclizine Hcl Meclizine Hcl 2020-04-21 00:00:00 No 25 Daily [facility] Amiodarone Hcl Amiodarone Hcl 2020-04-07 00:00:00 No 100 Daily [facility] Eliquis Eliquis 2020-04-07 00:00:00 No 5 Daily [facility] Fenofibrate Fenofibrate 2020-04-07 00:00:00 No 160 D aily [facility] Levothyroxine Sodium Levothyroxine Sodium 2020-04-07 00:00:00 No 88 Daily [facility] Lisinopril (Prinavil / Zestril) 20 Mg TABLET Lisinopri l (Prinavil / Zestril) 20 Mg TABLET 2020-04-07 00:00:00 No 20 Daily [facility] Metoprolol Succinate Metoprolol Succinate 2020-04-07 00:00:00 No 100 Daily [facility] Triamterene/Hydrochlorothiazid (Triamterene-Hctz 37.5- 25 Mg Cp) 1 Each CAPSULE Triamterene/Hydrochlorothiazid (Triamterene-Hctz 37.5-25 Mg Cp) 1 Each CAPSULE 2020-04-07 00:00:00 No 1 Daily [facility] Pregabalin (Lyrica) 50 Mg CAP Pregabalin (Lyrica) 50 Mg CAP 2018-11-11 00:00:00 No 50 Three Times A Day [facility] Vital Signs Vital Name Observation Time Observation Value Comments Source Body Temperature 2020-04-26 16:05:00 98.5 [degF] [facility] BMI (Body Mass Index) 2020-04-20 21:19:00 37.9 kg/m2 [facility] Weight 2020-04-20 12:52:00 228 [lb_av] [facility] Weight 2020-04-19 21:20:00 228 [lb_av] [facility] BMI (Body Mass Index) 2020-04-19 21:20:00 37.9 kg/m2 [facility] Body Temperature 2020-04-09 12:10:00 97.4 [degF] [facility] Weight 2020-04-07 23:59:00 228.03 [lb_av] [facility] BMI (Body Mass Index) 2020-04-07 23:59:00 37.9 kg/m2 [facility] Respitory Rate 2016-10-17 18:00:00 Memori al Govind Systolic (mm Hg) 2016-10-17 18:00:00 Steffen rial [place] Diastolic (mm Hg) 2016-10-17 18:00:00 Mem orial [place] Heart Rate 2016-10-17 18:00:00 [facility] Temperature Oral (F) 2016-10-17 18:00:00 98.1 F [facility] [place] Systolic (mm Hg) 2016-10-17 14:00:00 Steffen rial Govind Diastolic (mm Hg) 2016-10-17 14:00:00 Mem orial Govind Respitory Rate 2016-10-17 14:00:00 Memori al Govind Temperature Oral (F) 2016-10-17 14:00:00 98.1 F [facility] Heart Rate 2016-10-17 14:00:00 [facility] [place] Respitory Rate 2016-10-17 10:00:00 Mem[facility] [place] Systolic (mm Hg) 2016-10-17 10:00:00 Steffen rial [place] Diastolic (mm Hg) 2016-10-17 10:00:00 Mem o[facility] [place] Heart Rate 2016-10-17 10:00:00 [facility] [place] Temperature Oral (F) 2016-10-17 10:00:00 98.1 F [facility] BMI Calculated 2016-10-15 16:25:00 Memori al Govind Height 2016-10-15 16:25:00 154.94 cm [facility] [place] Weight 2016-10-15 16:25:00 [facility] [place] Weight 2014-06-13 14:30:00 [facility] [place] Heart Rate 2014-06-13 14:30:00 [facility] Diastolic (mm Hg) 2014-06-13 14:30:00 Mem orial [place] Systolic (mm Hg) 2014-06-13 14:30:00 Steffen rial Govind Weight 2014-02-22 18:45:00 [facility] [place] Heart Rate 2014-02-22 18:45:00 [facility] Diastolic (mm Hg) 2014-02-22 18:45:00 Mem orial Govind Systolic (mm Hg) 2014-02-22 18:45:00 Steffen rial Govind Weight 2013-11-16 18:45:00 [facility] Heart Rate 2013-11-16 18:45:00 [facility] [place] Diastolic (mm Hg) 2013-11-16 18:45:00 Mem [facility] [place] Systolic (mm Hg) 2013-11-16 18:45:00 Steffen rial [place] Procedures Procedure Date / Time Performed Performing Clinician Sasha e Computed tomography of brain without radiopaque contrast 2020-04 00:00:00 [facility] Computed tomography of cervical spine without contrast 4 00:00:00 [facility] EXCISION OF STOMACH, ENDO, DIAGN 2020-04-09 00:00:00 [facility] DESTRUCTION OF STOMACH, ENDO 2020-04-09 00:00:00 [facility] Computed tomography angiography of brain 2020-04-08 00:00:[address] [facility] [address] angiography of neck 2020-04-08 00:00:00 [facility] US Liver 2020-04-08 00:00:00 [facility] Computed tomography of brain without radiopaque contrast 2020-03 00:00:00 [facility] Computed tomography of chest without contrast 2020-04-07 00:00:0 0 [facility] TRANSFUSE NONAUT RED BLOOD CELLS IN PERIPH VEIN, PERC 2020-04-07 00:00:00 [facility] Appendectomy [facility] Cholecystectomy [facility] Hysterectomy [facility] Lumbar spinal fusion [facility] Plan of Care Planned Activity Planned Date Details Comments Source Instructions Urinary Tract Infection - Women [facility] Encounters Start Date/Time End Date/Time Encounter Type Admission Type Attendi [facility] Facility Care Department Encounter ID Source 2020-04-19 23:00:00 2020-04-20 01:31:00 Departed Emergency Room 1 SHANKAR NEWMAN [facility] [id number] [facility] 2020-04-07 13:13:00 2020-04-09 14:47:00 Discharged Inpatient 1 HUE PETERSON [facility] [id number] [facility] 2020-03-26 12:17:00 2020-03-26 23:59:00 Outpatient Homer Benz MHOIB MHOIB [id number] 2019-02-05 04:59:00 2019-02-05 06:13:00 Departed Emergency Room [facility] [id number] [facility] 2018-11-10 08:44:00 2018-11-11 20:25:00 Discharged Inpatient (obs) 1 NEL BONNER [facility] [id number] [facility] 2016-10-16 08:20:00 2016-10-17 15:39:00 Outpatient Jo Marielle Omer okeefe MHSE MHSE [id number] 2014-06-13 10:27:00 2014-06-13 10:27:00 [place] [id number] [employer] 2014-06-13 09:30:00 2014-06-13 09:30:00 [place] [id number] [employer] 2014-05-03 14:04:00 2014-05-03 14:04:00 [place] [id number] [employer] 2014-05-03 13:53:00 2014-05-03 13:53:00 [place] [id number] [employer] 2014-05-03 10:49:00 2014-05-03 10:49:00 [place] [id number] [employer] 2014-05-01 15:06:00 2014-05-01 15:06:00 [place] [id number] [employer] 2014-02-22 13:45:00 2014-02-22 13:45:00 [place] [id number] [employer] 2014-02-22 13:30:00 2014-02-22 13:30:00 Outpatient Rose Mary JACOBSON [id number] [employer] Results Test Description Test Time Test Comments Results Result Comments Source Capillary blood glucose measurement by glucometer (mas s/volume) 2020-04-26 15:13:00 Test Item Bedside Glucose (test code = 67854-5) 132 70-120 Meter ID: [id number] HospitalBlood leukocytes automated count (number/volume)2020-04-26 04:55:00* Test Item Value Reference Range Interpretation Comments White Blood Count (test code = 6690-2) 3.85 4.8-10.8 [facility] count (number/volume)2020-04-26 04:55:00* Test Item Value Reference Range Interpretation Comments Red Blood Count (test code = 789-8) 2.59 3.6-5.1 [facility] measurement (moles/volume)2020-04-26 04:55:00* Test Item Value Reference Range Interpretation Comments Hemoglobin (test code = 69512-4) 8.2 12.0-16.0 [facility] hematocrit (volume fraction)2020-04-26 04:55:00* Test Item Value Reference Range Interpretation Comments Hematocrit (test code = 4544-3) 27.3 34.2-44.1 [facility] erythrocyte mean corpuscular [id number] 04:55:00* Test Item Value Reference Range Interpretation Comments Mean Corpuscular Volume (test code = 787-2) 105.4 81-99 [facility] mean corpuscular hemoglobin (mass per erythrocyte)2020-04-26 04:55:00* Test Item Value Reference Range Interpretation Comments Mean Corpuscular Hemoglobin (test code = 785-6) 31.7 28-32 [facility] erythrocyte mean corpuscular hemoglobin concentration measurement (mass/volume)2020-04-26 04:55:00* Test Item Value Reference Range Interpretation Comments Mean Corpuscular Hemoglobin Concent (test code = 786-4) 30.0 31-35 [facility] HospitalRDW [id number] 04:55:00* Test Item Value Reference Range Interpretation Comments Red Cell Distribution Width (test code = 20151-9) 21.0 11.7 -14.4 [facility] platelet count (count/volume)2020-04-26 04:55:00* Test Item Value Reference Range Interpretation Comments Platelet Count (test code = 777-3) 120 140-360 [facility]Aut[facility] segmented neutrophil count as percentage of total [id number] 04:55:00* Test Item Value Reference Range Interpretation Comments Neutrophils (%) (Auto) (test code = 32090-2) 54.5 38.7-80.0 [facility] lymphocyte count as percentage ot total [id number] 04:55:00* Test Item Value Reference Range Interpretation Comments Lymphocytes (%) (Auto) (test code = 736-9) 24.2 18.0-39.1 [facility] blood monocyte count as percentage of total [id number] 04:55:00* Test Item Value Reference Range Interpretation Comments Monocytes (%) (Auto) (test code = 5905-5) 13.8 4.4-11.3 [facility] blood eosinophil count as percentage of total [id number] 04:55:00* Test Item Value Reference Range Interpretation Comments Eosinophils (%) (Auto) (test code = 713-8) 5.7 0.0-6.0 [facility] blood basophil count as percentage of total [id number] 04:55:00* Test Item Value Reference Range Interpretation Comments Basophils (%) (Auto) (test code = 706-2) 0.8 0.0-1.0 [facility] HospitalFluoroscopic procedure less than one hour [id number] 04:55:00* Test Item Value Reference Range Interpretation Comments IM GRANULOCYTES % (test code = IM GRANULOCYTES %) 1.0 0.0- 1.0 [facility] blood neutrophil count 2020-04-26 04:55:00* Test Item Value Reference Range Interpretation Comments Neutrophils # (Auto) (test code = 751-8) 2.1 2.1-6.9 [facility] lymphocytes count (number/volume) 2020-04-26 04:55:00* Test Item Value Reference Range Interpretation Comments Lymphocytes # (Auto) (test code = 04746-1) 0.9 1.0-3.2 [facility] monocytes automated count (number/volume)2020-04-26 04:55:00* Test Item Value Reference Range Interpretation Comments Monocytes # (Auto) (test code = 742-7) 0.5 0.2-0.8 [facility] HospitalAutomated blood eosinophil count 2020-04-26 04:55:00* Test Item Value Reference Range Interpretation Comments Eosinophils # (Auto) (test code = 711-2) 0.2 0.0-0.4 [facility] HospitalAutomated blood basophil count (count/volume)2020-04-26 04:55:00* Test Item Value Reference Range Interpretation Comments Basophils # (Auto) (test code = 704-7) 0.0 0.0-0.1 [facility] HospitalFluoroscopic procedure less than one hour rwbchecg9562-89-03 04:55:00* Test Item Value Reference Range Interpretation Comments Absolute Immature Granulocyte (auto (lyssa t code = Absolute Immature Granulocyte (auto) 0.04 0-0.1 [facility]Bl[facility] platelets count by estimate (number/volume)2020-04-26 04:55:00* Test Item Value Reference Range Interpretation Comments Platelet Estimate (test code = 46761-4) SLIGHTLY DECREASED [facility] HospitalPlatelet upeqiypjum2012-93-19 04:55:00* Test Item Value Reference Range Interpretation Comments Platelet Morphology Comment (test code = 67179-5) NORMAL [facility] polychromasia detection by light axrbzuqbqv4416-84-26 04:55:00* Test Item Value Reference Range Interpretation Comments Polychromasia (test code = 83962-1) FEW [facility] anisocytosis detection by light oqcqoyxkxw2599-49-75 04:55:00* Test Item Value Reference Range Interpretation Comments Anisocytosis (test code = 702-1) MODERATE [facility] macrocytes detection by light eoqfggcyex7829-06-16 04:55:00* Test Item Value Reference Range Interpretation Comments Macrocytosis (test code = 738-5) MODERATE [facility] HospitalRBC mmuvlnvmlj7805-93-15 04:55:00* Test Item Value Reference Range Interpretation Comments Red Cell Morphology Comment (test code = 6742-1) ABNORMAL [facility] plasma sodium measurement (moles/volume)2020-04-26 04:55:00* Test Item Value Reference Range Interpretation Comments Sodium Level (test code = 2951-2) 142 136-145 [facility]wooderum or plasma potassium measurement (moles/volume)2020-04-26 04:55:00* Test Item Value Reference Range Interpretation Comments Potassium Level (test code = 2823-3) 5.0 3.5-5.1 Results called to MARIEL HASSAN RN at 0644 on 04/26/20 by Berta Lambert. RB OK.[facility]wood[facility] or plasma chloride measurement (moles/volume)2020-04-26 04:55:00* Test Item Value Reference Range Interpretation Comments Chloride Level (test code = 2075-0) 113 98-107 [facility]wooder[facility] or plasma carbon dioxide, total measurement (moles/volume)2020-04-26 04:55:00* Test Item Value Reference Range Interpretation Comments Carbon Dioxide Level (test code = 2028-9) 26 22-29 [facility]wooderum or plasma anion sal2419-84-94 04:55:00* Test Item Value Reference Range Interpretation Comments Anion Gap (test code = 94257-9) 8.0 8-16 [facility]wood[facility] or plasma urea nitrogen measurement (mass/volume)2020-04-26 04:55:00* Test Item Value Reference Range Interpretation Comments Blood Urea Nitrogen (test code = 3094-0) 27 7- [facility] plasma creatinine measurement (mass/volume)2020-04-26 04:55:00* Test Item Value Reference Range Interpretation Comments Creatinine (test code = 2160-0) 1.23 0.57-1.11 [facility] plasma urea nitrogen/creatinine mass petdn4786-12-88 04:55:00* Test Item Value Reference Range Interpretation Comments BUN/Creatinine Ratio (test code = 3097-3) 22 6-25 [facility] HospitalEstimated glomerular filtration rate (GFR) arxcpkvhyjbcx1759-17-87 04:55:00* Test Item Value Reference Range Interpretation Comments Estimat Glomerular Filtration Rate (test code = 858249045) 43 >60 Ranges were taken from the National Kidney Disease Education Program and the [facility] literature.Reference ranges:60 or greater: Wjjake10-21 ( for 3 consecutive months): Chronic kidney disease 15 or less: Kidney failureParkview Regional HospitalGlucose diuseyvrtzd2322-63-08 04:55:00* Test Item Value Reference Range Interpretation Comments Glucose Level (test code = ODG5942) 106 74-118 [facility] plasma calcium measurement (mass/volume)2020-04-26 04:55:00* Test Item Value Reference Range Interpretation Comments Calcium Level (test code = 32114-0) 8.3 8.4-10.2 [facility] HospitalUrine color tyvimnfjzmrfw6280-19-33 01:50:00* Test Item Value Reference Range Interpretation Comments Urine Color (test code = 5778-6) YELLOW YELLOW [facility] HospitalUrine wxpcyex5768-67-28 01:50:00* Test Item Value Reference Range Interpretation Comments Urine Clarity (test code = 68188-9) SL CLOUDY CLEAR [facility] Brownwoodpecific gravity of Urine by Test strip 2020-04-26 01:50:00* Test Item Value Reference Range Interpretation Comments Urine Specific [place] (test code = 5811-5) 1.025 1.010-1.02 5 [facility] HospitalUrine pH measurement by automated test cvxdg8681-77-09 01:50:00* Test Item Value Reference Range Interpretation Comments Urine pH (test code = 82637-8) 6 5-7 [facility] HospitalUrine leukocyte esterase detection by wqvtifgl5426-29-08 01:50:00* Test Item Value Reference Range Interpretation Comments Urine Leukocyte Esterase (test code = 5799-2) NEGATIVE NEGATIVE [facility] HospitalUrine nitrite ekkddujfm9551-82-43 01:50:00* Test Item Value Reference Range Interpretation Comments Urine Nitrite (test code = 70888-3) NEGATIVE NEGATIVE [facility] HospitalUrine protein measurement by test strip (mass/volume)2020-04-26 01:50:00* Test Item Value Reference Range Interpretation Comments Urine Protein (test code = 5804-0) NEGATIVE NEGATIVE [facility] HospitalUrine glucose ldzjjamli7158-63-16 01:50:00* Test Item Value Reference Range Interpretation Comments Urine Glucose (UA) (test code = 2349-9) NEGATIVE NEGATIVE [facility] HospitalUrine ketones detection by automated test vstql3029-05-61 01:50:00* Test Item Value Reference Range Interpretation Comments Urine Ketones (test code = 74798-5) NEGATIVE NEGATIVE [facility] HospitalUrine urobilinogen measurement by test strip (mass/volume)2020-04-26 01:50:00* Test Item Value Reference Range Interpretation Comments Urine Urobilinogen (test code = 61775-2) 1 0.2-1 [facility] HospitalUrine total bilirubin measurement (mass/volume)2020-04-26 01:50:00* Test Item Value Reference Range Interpretation Comments Urine Bilirubin (test code = 1978-6) NEGATIVE NEGATIVE [facility] HospitalUrine erythrocytes puiwtbbia4944-52-15 01:50:00* Test Item Value Reference Range Interpretation Comments Urine Blood (test code = 00307-1) NEGATIVE NEGATIVE [facility] HospitalAutomated urine sediment leukocyte count by microscopy (number/high power field)2020-04-26 01:50:00* Test Item Value Reference Range Interpretation Comments Urine WBC (test code = 5821-4) 21-50 0-5 [facility] HospitalErythrocytes detection in urine sediment by light xfcpielknu5638-86-50 01:50:00* Test Item Value Reference Range Interpretation Comments Urine RBC (test code = 63279-0) >50 0-5 [facility] HospitalBacteria detection in urine sediment by light jqtgsjryuz9927-10-41 01:50:00* Test Item Value Reference Range Interpretation Comments Urine Bacteria (test code = 54008-2) MODERATE NONE [facility] HospitalEpithelial cells detection in urine sediment by light aqhzorfrvu3896-57-09 01:50:00* Test Item Value Reference Range Interpretation Comments Urine Epithelial Cells (test code = 86672-3) FEW NONE [facility] HospitalHyaline casts detection in urine sediment by light eiofaeayhm3795-50-89 01:50:00* Test Item Value Reference Range Interpretation Comments Urine Hyaline Casts (test code = 07674-5) 2-5 0-1 [facility] or plasma folate measurement (mass/volume)2020-04-25 04:50:00* Test Item Value Reference Range Interpretation Comments Folate (test code = 2284-8) 9.5 >3.0 A serum folate concentration of less than 3.1 ng/mL isconsidered to represent cl inical deficiency.Performed at: - [facility] [address] [id number] Director: Skip Garner MD, Phone: [phone] Regional HospitalAutomated reticulocyte count as percentage of total woqsfyfsneeh2727-87-39 05:20:00* Test Item Value Reference Range Interpretation Comments Percent Reticulocyte Count (test code = 39937-9) 4.6 0.8-2 .2 [facility] plasma iron measurement (mass/volume)2020-04-24 05:20:00* Test Item Value Reference Range Interpretation Comments Iron Level (test code = 2498-4) 82 50-170 [facility]wooder[facility] or plasma iron binding capacity measurement (mass/volume)2020-04-24 05:20:00* Test Item Value Reference Range Interpretation Comments Total Iron Binding Capacity (test code = 2500-7) 374 261-4 78 [facility]wooder[facility] or plasma iron saturation measurement (mass fraction)2020-04-24 05:20:00* Test Item Value Reference Range Interpretation Comments Percent Iron Saturation (test code = 2502-3) 22 15-50 [facility]wood[facility] or plasma transferrin measurement (mass/volume)2020-04-24 05:20:00* Test Item Value Reference Range Interpretation Comments Transferrin (test code = 3034-6) 267 180-382 [facility] or plasma ferritin measurement (mass/volume)2020-04-24 05:20:00* Test Item Value Reference Range Interpretation Comments Ferritin (test code = 2276-4) 62.95 4.63-204.00 [facility] HospitalBlood cobalamin (vitamin B12) measurement (mass/volume)2020-04-24 05:20:00* Test Item Value Reference Range Interpretation Comments Vitamin B12 Level (test code = 33402-8) > 2000 213-816 [facility] HospitalProthrombin time (PT) in platelet poor plasma by coagulation ybzts5405-14-81 04:45:00* Test Item Value Reference Range Interpretation Comments Prothrombin Time (test code = 5902-2) 17.6 11.9-14.5 [facility] HospitalINR in Platelet poor plasma by Coagulation dcblz1354-68-16 04:45:00* Test Item Value Reference Range Interpretation Comments Prothromb Time International Ratio (test code = 6301-6) 1.35 Oral Anticoagulant Therapy INR Values:1. Low Intensity Therapy 1.5 - 2.02 . Moderate Intensity Therapy 2.0 - 3.03. High Intensity Therapy(1) 2.5 - 3. 54. High Intensity Therapy(2) 3.0 - 4.05. Panic Value INR > 5.0 [facility] or plasma total bilirubin measurement (mass/volume)2020-04-23 04:45:00* Test Item Value Reference Range Interpretation Comments Total Bilirubin (test code = 1975-2) 1.1 0.2-1.2 [facility] HospitalFluoroscopic procedure less than one hour trsmzouf9347-85-80 04:45:00* Test Item Value Reference Range Interpretation Comments Aspartate Amino Transf (AST/SGOT) (test code = Aspartate Amino Transf (AST/SGOT)) 39 5-34 [facility]wooder[facility] or plasma alanine aminotransferase measurement (enzymatic activity/volume)2020-04-23 04:45:00* Test Item Value Reference Range Interpretation Comments Alanine Aminotransferase (ALT/SGPT) (test code = 1742-6) 20 0-55 [facility] or plasma protein measurement (mass/volume)2020-04-23 04:45:00* Test Item Value Reference Range Interpretation Comments Total Protein (test code = 2885-2) 5.9 6.5-8.1 [facility] plasma albumin measurement (mass/volume)2020-04-23 04:45:00* Test Item Value Reference Range Interpretation Comments Albumin (test code = 1751-7) 2.4 3.5-5.0 [facility] HospitalPlasma globulin measurement (mass/volume) 2020-04-23 04:45:00* Test Item Value Reference Range Interpretation Comments Globulin (test code = 84833-3) 3.5 2.3-3.5 [facility] or plasma albumin/globulin mass xrxjo6544-62-67 04:45:00* Test Item Value Reference Range Interpretation Comments Albumin/Globulin Ratio (test code = 1759-0) 0.7 0.8-2.0 [facility] or plasma alkaline phosphatase measurement (enzymatic activity/volume)2020-04-23 04:45:00* Test Item Value Reference Range Interpretation Comments Alkaline Phosphatase (test code = 6768-6) 131 40-150 [facility] HospitalG I TCYAI1317-45-99 13:53:00 [facility] [address] [address] Patient Name: AMAURY CONTE MR #: [id number] : 1945 Age/Sex: 74/F Req #: [id number] Adm Physician: HUE PETERSON MD Ordered by: GUILLERMO OLSON MD Report #: [id number] Location: MED/SURG2 Room/Bed: 2151 Procedure: NM/G I BLEED Exam Date: 04/22/20 Exam Time: 929 REPORT STATUS: Signed Tagged-RBC GI Bleed Study Clinical information: 74-year-old female with rectal bleeding. Discuss ion: The patient's own red blood cells were labeled with 27 mCi of technetium- 99m pertechnetate using the in vitro method (UltraTag). Dynamic images of the abdomen were obtained through 60 minutes. Distribution of tracer activity appears physiologic throughout the abdomen. No abnormal accumulation of trace r is seen within the gastrointestinal lumen. Impression: No scan evid ence of active gastrointestinal bleeding at this time. Signed by: Dr. Altfa Farah M.D. on 04/22/2020 1:58 PM Dictated By: TIARA FARAH MD [facility] Signed By: TIARA FARAH MD on 04/22/20 1358 Transcribed By: JUAN on 04/06 1358 COPY TO: GUILLERMO OLSON MD Activated partial thromboplastin time (aPTT) in platelet poor plasma by coagulation assay 2020-04-22 04:50:00* Test Item Value Reference Range Interpretation Comments Activated Partial Thromboplast Time (test code = 71670-7) 38.3 23.8-35.5 [facility] HospitalAmmonia Sre-dTro3633-01-06 04:50:00* Test Item Value Reference Range Interpretation Comments Ammonia (test code = 80373-3) 74 31-123 [facility] or plasma creatine kinase measurement (enzymatic activity/volume)2020-04-21 23:05:00* Test Item Value Reference Range Interpretation Comments Creatine Kinase (test code = 2157-6) 67 29-168 [facility]wood[facility] or plasma creatine kinase MB measurement (mass/volume)2020-04-21 23:05:00* Test Item Value Reference Range Interpretation Comments Creatine Kinase MB (test code = 95295-1) 0.80 0-5.0 [facility] HospitalTroponin I measurement by highly sensitive enzyme xxolxsjybys3661-02-20 23:05:00* Test Item Value Reference Range Interpretation Comments Troponin I (test code = 70474-5) 0.003 0-0.300 [facility] Brownwoodtool gastrointestinal hemoglobin delexstbp9654-13-97 15:00:00* Test Item Value Reference Range Interpretation Comments Stool Occult Blood (test code = 2335-8) POSITIVE NEGATIVE [facility]wooderum or plasma hepatitis A virus IgM antibody detection by fevipykqimi1120-31-05 09:30:00* Test Item Value Reference Range Interpretation Comments Hepatitis A IgM Antibody (test code = 10558-6) Negative Negativ e [facility]wooderum or plasma hepatitis B virus surface antigen detection by wvbprasfuqu1766-04-57 09:30:00* Test Item Value Reference Range Interpretation Comments Hepatitis B Surface Antigen (test code = 5196-1) Negative Negat raudel [facility]wooderum or plasma hepatitis B virus core IgM antibody detection by uafmmfifbmm5275-72-37 09:30:00* Test Item Value Reference Range Interpretation Comments Hepatitis B Core IgM Antibody (test code = 75649-0) Negative Ne gative [facility]wooderum hepatitis C virus antibody jvacspcyw3926-55-08 09:30:00* Test Item Value Reference Range Interpretation Comments Hepatitis C Antibody (test code = 12369-5) 0.1 0.0-0.9 Negative: < 0.8 Indeterminate: 0.8 - 0.9 Positive: > 0.9 The CDC recommends that a positive HCV antibody result be followed up with a HCV Nucleic Acid Amplification test (733202).Performed at: [facility] [address] [place], [place] [id number] Director: Skip Garner MD, Phone: [phone] Regional HospitalCT CERVICAL SPINE EX5970-33-53 15:26:[address] [address] Patient Name: AMAURY CONTE MR #: [id number] : 1945 Age/Sex: 74/F Req #: [id number] Adm Physician: Ordered by: NEL BONNER MD Report #: [id number] Location: ER Room/Bed: Procedure: CT/CT CERVICAL SPINE WO Exam Date: 04/20/20 Exam Time: 1400 REPORT STATUS: Signed EXAMINATION: CT of the cervical spine HISTORY: Fall, AMS COMPARISON: None available TE CHNIQUE: Multidetector helical axial images were obtained without contrast fro m the foramen magnum to T1. The images were reconstructed using bone and soft tissue algorithms and were viewed in axial, sagittal and coronal planes. Do se modulation, iterative reconstruction, and/or weight based adjustment of the mA/kV was utilized to reduce the radiation dose to as low as reasonably achie vable. FINDINGS: Alignment: Normal alignment and lordosis Soft tissues: Normal Vertebrae: Normal height and density. No acu te fracture, infection or neoplasm. Degenerative changes: No signific ant degenerative changes, no spinal canal or foraminal stenosis. IMP RESSION: No acute cervical spine postraumatic abnormalities. Note: Acu te postraumatic spinal cord, vascular or ligamentous injuries cannot adequatel y be assessed by CT. Signed by: Dr. Salma Love M.D. on 04/20/2020 3:36 PM Dictated By: SALMA LOVE MD 1536 Transcribed By: JUAN on 04/20/20 1536 COPY TO: NEL JAMES MD CT BRAIN KC7861-87-88 14:37:00 [facility] [address] [address] Patient Name: AMAURY CONTE MR #: [id number] : 1945 Age/Sex: 74/F Req #: [id number] Adm Physician: HUE PETERSON MD Ordered by: NEL BONNER MD Report #: [id number] Location: MED/SURG2 Room/Bed: [facility] Procedure: [id number] CT/CT BRAIN WO Exam Date: 04/20/20 Exam Time: 1354 REPORT STATUS: Signed EXAMINATION: Head CT HISTORY: AMS. COMPARISON: Head CT 04/08/20. TECHNIQUE: Helical axial image s of the head were obtained. Reformatted coronal and sagittal images from the axial data. Dose modulation, iterative reconstruction, and/or weight based ad justment of the mA/kV was utilized to reduce the radiation dose to as low as r easonably achievable. Image quality: Motion/streaking artifact limits the eval uation of the skull base and posterior cranial fossa. FINDINGS: Parenchyma: 1. Moderate supratentorial white matter small vessel ischemic c hanges. 2. No mass or hemorrhage. No CT evidence of acute territorial vascula r insult. Extra-axial spaces:No abnormal density. No extra-axia l fluid collections Brain volume: Mild generalized volume loss. Ventricles: No hydrocephalus or displacement. Arteries: No density sugg estive of thrombus. Dural sinuses: No abnormal density. Foramen magnum: No mass, Chiari malformation, or basilar invagination. Sella: No obvious mass. Paranasal/mastoid sinuses: Imaged portions unremarkable. Skull/Scalp: No lytic or blastic lesions. No fractures. IMPRESSI ON: 1. No acute abnormalities. 2. Moderate chronic small vessel ischemi c changes, stable compared to head CT of 04/07/20. Signed by: Dr. Salma sexton M.D. on 04/20/2020 2:46 PM Dictated By: SALMA LOVE MD 45 Transcribed By: JUAN on 04/20/201445 COPY TO: NEL BONNER MD CHEST SINGLE (PORTABLE) 2020-04-20 14:08:00 [address] [address] Patient Name: AMAURY CONTE MR #: [id number] : 1945 Age/Sex: 74/F Req #: [id number] Adm Physician: Ordered by: NEL BONNER MD Report #: [id number] Location: ER Room/Bed: Procedure: [id number] DX/CHEST SINGL E (PORTABLE) Exam Date: 04/20/20 Exam Time: 1350 REPORT STATUS: Signed EXAMINATION: CHEST SINGLE (PORTABLE) INDICATION: SOB, AMS [id number] COMPARISON: CT chest 04/08/2020 FINDINGS: AP view TUBES and LINES: The pacemaker is intact. The distal lead is not well visu alized. Otherwise incorrect position on CT from 04/08/2020. LUNGS: Lungs ar e well inflated. Minimal atelectasis in both lung bases. There is no eviden ce of pneumonia or pulmonary edema. PLEURA: No pleural effusion or pneumot horax. HEART AND MEDIASTINUM: The cardiomediastinal silhouette is unremark able.. BONES AND SOFT TISSUES: No acute osseous lesion. Soft tissues ar e unremarkable. UPPER ABDOMEN: No free air under the diaphragm. IMPRESSION: No acute thoracic abnormality. Minimal bibasilar atelectasis . Signed by: Dr. Tatiana Villeda M.D. on 04/20/2020 2:10 PM D ictated By: TATIANA VILLEDA MD 09 Transcribed By: JUAN on 04/20/201409 CO PY TO: NEL BONNER MD Fluoroscopic procedure less than one hour zgsncwia1866-04-54 13:00:00* Test Item Value Reference Range Interpretation Comments Lactic Acid Level (test code = Lactic Acid Level) 1.7 0.5- 2.0 [facility] or plasma magnesium measurement (mass/volume)2020-04-20 13:00:00* Test Item Value Reference Range Interpretation Comments Magnesium Level (test code = 29922-9) 2.1 1.3-2.1 [facility] or plasma triglyceride measurement (mass/volume)2020-04-20 13:00:00* Test Item Value Reference Range Interpretation Comments Triglycerides Level (test code = 2571-8) 86 0-149 [facility]er[facility] or plasma cholesterol measurement (mass/volume)2020-04-20 13:00:00* Test Item Value Reference Range Interpretation Comments Cholesterol Level (test code = 2093-3) 72 0-199 Less than 200 mg/dL Low Jclj584 - 239 mg/dL Borderline Smox226 m g/dl and greater High Risk [facility] or plasma cholesterol in LDL measurement (mass/volume) 2020-04-20 13:00:00* Test Item Value Reference Range Interpretation Comments LDL Cholesterol (test code = 2089-1) 38 60-130 [facility] or plasma cholesterol in HDL measurement (mass/volume)2020-04-20 13:00:00* Test Item Value Reference Range Interpretation Comments HDL Cholesterol (test code = 2085-9) 17 40-60 [facility]wooder[facility] or plasma total cholesterol/cholesterol in HDL mass wozfl4121-24-33 13:00:00* Test Item Value Reference Range Interpretation Comments Cholesterol/HDL Ratio (test code = 9830-1) 4.2 3.0-3.6 [facility] HospitalBNP Usd-fUkj7629-51-04 13:00:00* Test Item Value Reference Range Interpretation Comments B-Type Natriuretic Peptide (test code = 94549-7) 205.9 0-100 [facility] HospitalFluoroscopic procedure less than one hour nbggbakc9952-07-64 13:00:00* Test Item Value Reference Range Interpretation Comments Coronavirus (PCR) (test code = Coronavirus (PCR)) NOT DETECTED NOTD ETECTED SARS-COV2/RT-PCRNegative results do not preclude SARS-CoV-2 infection and should not be used as the sole basis for patient management decisions. Negative result s must be combined with clinical observations, patient history, and epidemiologi angelito information. A false negative result may occur if a specimen is improperly c ollected, transported or handled.The limit of detection for this assay is 250 co pies/mLThe SARS-CoV-2 test is a rapid, real-time RT-PCR test intended for the qu alitative detection of nucleic acid from SARS-CoV-2 in nasopharyngeal swab speci men collected from individuals suspected of COVID-19 by their healthcare provide r. This test has not been Food and Drug Administration (FDA) cleared or approved and has been authorized by FDA under an Emergency Use Authorization (EUA). This EUA will be effective until the declaration that circumstances exist justifying the authorization of the emergency use of in vitro diagnostic test for detectio n and or diagnosis of COVID-19 is terminated under section 564(b) of the Act, or the the EUA is revoked under 564(g) of the ACT.Testing performed by [facility] [place], [place] [address]ZTSParkview Regional HospitalBlood wuytcxz2031-36-01 13:00:00* Test Item Value Reference Range Interpretation Comments Blood Culture (test code = 44336069) NO GROWTH AFTER 5 DAYS, FINAL REPORT [facility] HospitalBacterial urine qwtbing5302-36-96 13:00:00* Test Item Value Reference Range Interpretation Comments Urine Culture (test code = 630-4) ESCHERICHIA COLI [facility]woodP LUMBAR, COMPLETE MIN 4QC5189-02-59 23:47:00 [address] [address] Patient Name: AMAURY CONTE MR #: [id number] : 1945 Age/Sex: 74/F Req #: [id number] Adm Physician: Ordered by: SHANKAR NEWMAN DO Report #: [id number] Location: ER Room/Bed: Procedure: [id number] DX/SP LUMBA R, COMPLETE MIN 4VW Exam Date: 04/19/20 Exam Time: 2 310 REPORT STATUS: Signed THORAC IC SP 3V, SP LUMBAR, COMPLETE MIN 4VW - 3 views HISTORY: Pain. ALOK RISON: None available. FINDINGS: Normal thoracic kyphosis. No hayden tebral body height loss. No thoracic scoliosis. Mild multilevel thoracic de generative disc disease. Leftward curvature of the lumbar spine. No lumbar vertebral body height loss. Minimal anterolisthesis of L4 on L5. Moderate degenerative disc disease at L2-L3, L3-L4, L4-L5, and L5-S1. Advanced facet a rthrosis at L4-L5 and L5-S1. Advanced right hip arthrosis. Aortic vasc ular calcifications. IMPRESSION: Multilevel thoracolumbar degenera tive change. No acute osseous abnormality. Signed by: Branden Dasilva MD on 04/19/2020 11:49 PM Dictated By: BRANDEN DASILVA MD Transcribed By: JUAN on 04/19/206 COPY TO: SHANKAR NEWMAN DO THORACIC SP [id number] 23:47:00 [address], [place], [place] [address] Patient Name: AMAURY CONTE MR #: [id number] : 1945 Age/Sex: 74/F Req #: [id number] Adm Physician: Ordered by: SHANKAR NEWMAN DO Report #: [id number] Location: [facility]/Bed: Procedure: [id number] DX/THORACIC SP 3V Exam Date: 04/19/20 Exam Time: 2310 REPORT STATUS: Signed THORACIC SP 3V, SP LUMBAR, COMPLETE MIN 4VW - 3 views HISTORY: Pain. COMPARISON: None a vailable. FINDINGS: Normal thoracic kyphosis. No vertebral body h eight loss. No thoracic scoliosis. Mild multilevel thoracic degenerative di sc disease. Leftward curvature of the lumbar spine. No lumbar vertebral bod y height loss. Minimal anterolisthesis of L4 on L5. Moderate degenerative disc disease at L2-L3, L3-L4, L4-L5, and L5-S1. Advanced facet arthrosis at L 4-L5 and L5-S1. Advanced right hip arthrosis. Aortic vascular calcific ations. IMPRESSION: Multilevel thoracolumbar degenerative change. No acute osseous abnormality. Signed by: Branden Dasilva MD on 04/19/2020 11: 49 PM Dictated By: BRANDEN DASILVA MD Transcribed By: JUAN on 04/19/202348 COPY T O: SHANKAR NWEMAN DO Prothrombin time (PT) in platelet poor plasma by coagulation [id number] 11:45:00* Test Item Value Reference Range Interpretation Comments Prothrombin Time (test code = 5902-2) 20.5 11.9-14.5 [facility] Platelet poor plasma by Coagulation wbtbb1386-46-59 11:45:00* Test Item Value Reference Range Interpretation Comments Prothromb Time International Ratio (test code = 6301-6) 1.63 Oral Anticoagulant Therapy INR Values:1. Low Intensity Therapy 1.5 - 2.02 . Moderate Intensity Therapy 2.0 - 3.03. High Intensity Therapy(1) 2.5 - 3. 54. High Intensity Therapy(2) 3.0 - 4.05. Panic Value INR > 5.0 [facility] HospitalPro[facility] (PT) in platelet poor plasma by coagulation ojksr5254-74-87 11:45:00* Test Item Value Reference Range Interpretation Comments Prothrombin Time (test code = 5902-2) 20.5 11.9-14.5 [facility]IN[facility] Platelet poor plasma by Coagulation jqufo0379-79-28 11:45:00* Test Item Value Reference Range Interpretation Comments Prothromb Time International Ratio (test code = 6301-6) 1.63 Oral Anticoagulant Therapy INR Values:1. Low Intensity Therapy 1.5 - 2.02 . Moderate Intensity Therapy 2.0 - 3.03. High Intensity Therapy(1) 2.5 - 3. 54. High Intensity Therapy(2) 3.0 - 4.05. Panic Value INR > 5.0 [facility] glucose measurement by glucometer (mass/volume)2020-04-09 07:16:00* Test Item Value Reference Range Interpretation Comments Bedside Glucose (test code = 67166-2) 99 70-120 Meter ID: [id number] HospitalCapmarl[facility] hospital blood glucose measurement by glucometer (mass/volume)2020-04-09 07:16:00* Test Item Value Reference Range Interpretation Comments Bedside Glucose (test code = 32908-2) 99 70-120 Meter ID: [id number] [facility] HospitalBlood leukocytes automated count (number/volume)2020-04-09 05:40:00* Test Item Value Reference Range Interpretation Comments White Blood Count (test code = 6690-2) 4.39 4.8-10.8 [facility]Bl[facility] erythrocytes automated count (number/volume)2020-04-09 05:40:00* Test Item Value Reference Range Interpretation Comments Red Blood Count (test code = 789-8) 2.55 3.6-5.1 [facility] hemoglobin measurement (moles/volume)2020-04-09 05:40:00* Test Item Value Reference Range Interpretation Comments Hemoglobin (test code = 25385-7) 8.2 12.0-16.0 [facility] HospitalAutomated blood hematocrit (volume fraction)2020-04-09 05:40:00* Test Item Value Reference Range Interpretation Comments Hematocrit (test code = 4544-3) 27.0 34.2-44.1 [facility] HospitalAutomated erythrocyte mean corpuscular kovcxx9157-90-60 05:40:00* Test Item Value Reference Range Interpretation Comments Mean Corpuscular Volume (test code = 787-2) 105.9 81-99 [facility] HospitalAutomated erythrocyte mean corpuscular hemoglobin (mass per erythrocyte)2020-04-09 05:40:00* Test Item Value Reference Range Interpretation Comments Mean Corpuscular Hemoglobin (test code = 785-6) 32.2 28-32 [facility] HospitalAutomated erythrocyte mean corpuscular hemoglobin concentration measurement (mass/volume)2020-04-09 05:40:00* Test Item Value Reference Range Interpretation Comments Mean Corpuscular Hemoglobin Concent (test code = 786-4) 30.4 31-35 [facility] HospitalRDW SlbCh-Ahr0402-21-23 05:40:00* Test Item Value Reference Range Interpretation Comments Red Cell Distribution Width (test code = 01659-7) 21.6 11.7 -14.4 [facility] HospitalAutomated blood platelet count (count/volume)2020-04-09 05:40:00* Test Item Value Reference Range Interpretation Comments Platelet Count (test code = 777-3) 133 140-360 [facility] count as percentage of total kyqvzbzxrd1348-98-31 05:40:00* Test Item Value Reference Range Interpretation Comments Neutrophils (%) (Auto) (test code = 68113-4) 50.8 38.7-80.0 [facility] HospitalAutomated blood lymphocyte count as percentage ot total vwzsbmjzgk2333-09-26 05:40:00* Test Item Value Reference Range Interpretation Comments Lymphocytes (%) (Auto) (test code = 736-9) 26.7 18.0-39.1 [facility] HospitalAutomated blood monocyte count as percentage of total bjajffogpf0635-65-03 05:40:00* Test Item Value Reference Range Interpretation Comments Monocytes (%) (Auto) (test code = 5905-5) 15.7 4.4-11.3 [facility] HospitalAutomated blood eosinophil count as percentage of total puahczofug2867-16-57 05:40:00* Test Item Value Reference Range Interpretation Comments Eosinophils (%) (Auto) (test code = 713-8) 5.9 0.0-6.0 [facility] HospitalAutomated blood basophil count as percentage of total ktcwrdhzfa7384-24-66 05:40:00* Test Item Value Reference Range Interpretation Comments Basophils (%) (Auto) (test code = 706-2) 0.7 0.0-1.0 [facility] HospitalFluoroscopic procedure less than one hour nklmaxln0399-48-58 05:40:00* Test Item Value Reference Range Interpretation Comments IM GRANULOCYTES % (test code = IM GRANULOCYTES %) 0.2 0.0- 1.0 [facility] HospitalAutomated blood neutrophil count 2020-04-09 05:40:00* Test Item Value Reference Range Interpretation Comments Neutrophils # (Auto) (test code = 751-8) 2.2 2.1-6.9 [facility] HospitalBlood lymphocytes count (number/volume) 2020-04-09 05:40:00* Test Item Value Reference Range Interpretation Comments Lymphocytes # (Auto) (test code = 39154-0) 1.2 1.0-3.2 [facility] HospitalBlood monocytes automated count (number/volume)2020-04-09 05:40:00* Test Item Value Reference Range Interpretation Comments Monocytes # (Auto) (test code = 742-7) 0.7 0.2-0.8 [facility] HospitalAutomated blood eosinophil count 2020-04-09 05:40:00* Test Item Value Reference Range Interpretation Comments Eosinophils # (Auto) (test code = 711-2) 0.3 0.0-0.4 [facility] HospitalAutomated blood basophil count (count/volume)2020-04-09 05:40:00* Test Item Value Reference Range Interpretation Comments Basophils # (Auto) (test code = 704-7) 0.0 0.0-0.1 [facility] HospitalFluoroscopic procedure less than one hour scmerbkj7199-47-46 05:40:00* Test Item Value Reference Range Interpretation Comments Absolute Immature Granulocyte (auto (lyssa t code = Absolute Immature Granulocyte (auto) 0.01 0-0.1 [facility]wooderum or plasma sodium measurement (moles/volume)2020-04-09 05:40:00* Test Item Value Reference Range Interpretation Comments Sodium Level (test code = 2951-2) 149 136-145 [facility] Brownwooderum or plasma potassium measurement (moles/volume)2020-04-09 05:40:00* Test Item Value Reference Range Interpretation Comments Potassium Level (test code = 2823-3) 3.9 3.5-5.1 [facility]wooderum or plasma chloride measurement (moles/volume)2020-04-09 05:40:00* Test Item Value Reference Range Interpretation Comments Chloride Level (test code = 2075-0) 121 98-107 [facility]wooderum or plasma carbon dioxide, total measurement (moles/volume)2020-04-09 05:40:00* Test Item Value Reference Range Interpretation Comments Carbon Dioxide Level (test code = 2028-9) 23 22-29 [facility]wooderum or plasma anion ets4452-44-44 05:40:00* Test Item Value Reference Range Interpretation Comments Anion Gap (test code = 30527-2) 8.9 8-16 [facility]wooderum or plasma urea nitrogen measurement (mass/volume)2020-04-09 05:40:00* Test Item Value Reference Range Interpretation Comments Blood Urea Nitrogen (test code = 3094-0) 32 7-26 [facility]wooderum or plasma creatinine measurement (mass/volume)2020-04-09 05:40:00* Test Item Value Reference Range Interpretation Comments Creatinine (test code = 2160-0) 1.23 0.57-1.11 [facility]wooderum or plasma urea nitrogen/creatinine mass jhhdv1712-39-54 05:40:00* Test Item Value Reference Range Interpretation Comments BUN/Creatinine Ratio (test code = 3097-3) 26 6-25 [facility] HospitalEstimated glomerular filtration rate (GFR) gozqulnlbunnq2026-22-21 05:40:00* Test Item Value Reference Range Interpretation Comments Estimat Glomerular Filtration Rate (test code = 930453013) 43 >60 Ranges were taken from the National Kidney Disease Education Program and the [facility] literature.Reference ranges:60 or greater: Rdxajr11-72 ( for 3 consecutive months): Chronic kidney disease 15 or less: Kidney failureParkview Regional HospitalGlucose xsjlpiynggw8006-84-14 05:40:00* Test Item Value Reference Range Interpretation Comments Glucose Level (test code = DYY3232) 92 74-118 [facility]wooderum or plasma calcium measurement (mass/volume)2020-04-09 05:40:00* Test Item Value Reference Range Interpretation Comments Calcium Level (test code = 18472-2) 8.3 8.4-10.2 [facility]wood[facility] or plasma magnesium measurement (mass/volume)2020-04-09 05:40:00* Test Item Value Reference Range Interpretation Comments Magnesium Level (test code = 41662-2) 2.0 1.3-2.1 [facility]wooderum or plasma total bilirubin measurement (mass/volume)2020-04-09 05:40:00* Test Item Value Reference Range Interpretation Comments Total Bilirubin (test code = 1975-2) 1.5 0.2-1.2 [facility] HospitalFluoroscopic procedure less than one hour fpxsnjfd0655-91-00 05:40:00* Test Item Value Reference Range Interpretation Comments Aspartate Amino Transf (AST/SGOT) (test code = Aspartate Amino Transf (AST/SGOT)) 63 5-34 [facility]wooderum or plasma alanine aminotransferase measurement (enzymatic activity/volume)2020-04-09 05:40:00* Test Item Value Reference Range Interpretation Comments Alanine Aminotransferase (ALT/SGPT) (test code = 1742-6) 27 0-55 [facility] HospitalAmmonia Hkq-yOtr3453-73-23 05:40:00* Test Item Value Reference Range Interpretation Comments Ammonia (test code = 49245-8) 84 31-123 [facility]wooder[facility] or plasma protein measurement (mass/volume)2020-04-09 05:40:00* Test Item Value Reference Range Interpretation Comments Total Protein (test code = 2885-2) 5.5 6.5-8.1 [facility]wooder[facility] or plasma albumin measurement (mass/volume)2020-04-09 05:40:00* Test Item Value Reference Range Interpretation Comments Albumin (test code = 1751-7) 2.4 3.5-5.0 [facility] HospitalPlasma globulin measurement (mass/volume) 2020-04-09 05:40:00* Test Item Value Reference Range Interpretation Comments Globulin (test code = 21125-1) 3.1 2.3-3.5 [facility]wooderum or plasma albumin/globulin mass nlcww5692-96-54 05:40:00* Test Item Value Reference Range Interpretation Comments Albumin/Globulin Ratio (test code = 1759-0) 0.8 0.8-2.0 [facility]wooderum or plasma alkaline phosphatase measurement (enzymatic activity/volume)2020-04-09 05:40:00* Test Item Value Reference Range Interpretation Comments Alkaline Phosphatase (test code = 6768-6) 134 40-150 [facility] HospitalBlood leukocytes automated count (number/volume)2020-04-09 05:40:00* Test Item Value Reference Range Interpretation Comments White Blood Count (test code = 6690-2) 4.39 4.8-10.8 [facility] HospitalBlood erythrocytes automated count (number/volume)2020-04-09 05:40:00* Test Item Value Reference Range Interpretation Comments Red Blood Count (test code = 789-8) 2.55 3.6-5.1 [facility] HospitalBlood hemoglobin measurement (moles/volume)2020-04-09 05:40:00* Test Item Value Reference Range Interpretation Comments Hemoglobin (test code = 60689-2) 8.2 12.0-16.0 [facility] HospitalAutomated blood hematocrit (volume fraction)2020-04-09 05:40:00* Test Item Value Reference Range Interpretation Comments Hematocrit (test code = 4544-3) 27.0 34.2-44.1 [facility] HospitalAutomated erythrocyte mean corpuscular hjtqil3953-35-15 05:40:00* Test Item Value Reference Range Interpretation Comments Mean Corpuscular Volume (test code = 787-2) 105.9 81-99 [facility] HospitalAutomated erythrocyte mean corpuscular hemoglobin (mass per erythrocyte)2020-04-09 05:40:00* Test Item Value Reference Range Interpretation Comments Mean Corpuscular Hemoglobin (test code = 785-6) 32.2 28-32 [facility] HospitalAutomated erythrocyte mean corpuscular hemoglobin concentration measurement (mass/volume)2020-04-09 05:40:00* Test Item Value Reference Range Interpretation Comments Mean Corpuscular Hemoglobin Concent (test code = 786-4) 30.4 31-35 [facility] HospitalRDW RetLw-Caa4728-71-23 05:40:00* Test Item Value Reference Range Interpretation Comments Red Cell Distribution Width (test code = 32773-7) 21.6 11.7 -14.4 [facility] HospitalAutomated blood platelet count (count/volume)2020-04-09 05:40:00* Test Item Value Reference Range Interpretation Comments Platelet Count (test code = 777-3) 133 140-360 [facility] HospitalAuterlanger western [facility]olina hospitaled blood segmented neutrophil count as percentage of total bucxljbmzd3332-98-71 05:40:00* Test Item Value Reference Range Interpretation Comments Neutrophils (%) (Auto) (test code = 70559-8) 50.8 38.7-80.0 [facility] HospitalAutomated blood lymphocyte count as percentage ot total rtlkcfvkry9989-90-32 05:40:00* Test Item Value Reference Range Interpretation Comments Lymphocytes (%) (Auto) (test code = 736-9) 26.7 18.0-39.1 [facility] HospitalAutomated blood monocyte count as percentage of total uuvlitwoym7746-34-83 05:40:00* Test Item Value Reference Range Interpretation Comments Monocytes (%) (Auto) (test code = 5905-5) 15.7 4.4-11.3 [facility] HospitalAutomated blood eosinophil count as percentage of total tqetxewppc5028-05-55 05:40:00* Test Item Value Reference Range Interpretation Comments Eosinophils (%) (Auto) (test code = 713-8) 5.9 0.0-6.0 [facility] HospitalAutomated blood basophil count as percentage of total itlxdhtbeh8321-94-30 05:40:00* Test Item Value Reference Range Interpretation Comments Basophils (%) (Auto) (test code = 706-2) 0.7 0.0-1.0 [facility] HospitalFluoroscopic procedure less than one hour zgegnjee8142-07-46 05:40:00* Test Item Value Reference Range Interpretation Comments IM GRANULOCYTES % (test code = IM GRANULOCYTES %) 0.2 0.0- 1.0 [facility] HospitalAutomated blood neutrophil count 2020-04-09 05:40:00* Test Item Value Reference Range Interpretation Comments Neutrophils # (Auto) (test code = 751-8) 2.2 2.1-6.9 [facility] HospitalBlood lymphocytes count (number/volume) 2020-04-09 05:40:00* Test Item Value Reference Range Interpretation Comments Lymphocytes # (Auto) (test code = 15129-0) 1.2 1.0-3.2 [facility] HospitalBlood monocytes automated count (number/volume)2020-04-09 05:40:00* Test Item Value Reference Range Interpretation Comments Monocytes # (Auto) (test code = 742-7) 0.7 0.2-0.8 [facility] HospitalAutomated blood eosinophil count 2020-04-09 05:40:00* Test Item Value Reference Range Interpretation Comments Eosinophils # (Auto) (test code = 711-2) 0.3 0.0-0.4 [facility] HospitalAutomated blood basophil count (count/volume)2020-04-09 05:40:00* Test Item Value Reference Range Interpretation Comments Basophils # (Auto) (test code = 704-7) 0.0 0.0-0.1 [facility] HospitalFluoroscopic procedure less than one hour doyljkfk5383-54-86 05:40:00* Test Item Value Reference Range Interpretation Comments Absolute Immature Granulocyte (auto (lyssa t code = Absolute Immature Granulocyte (auto) 0.01 0-0.1 [facility] or plasma sodium measurement (moles/volume)2020-04-09 05:40:00* Test Item Value Reference Range Interpretation Comments Sodium Level (test code = 2951-2) 149 136-145 [facility]wooderum or plasma potassium measurement (moles/volume)2020-04-09 05:40:00* Test Item Value Reference Range Interpretation Comments Potassium Level (test code = 2823-3) 3.9 3.5-5.1 [facility] or plasma chloride measurement (moles/volume)2020-04-09 05:40:00* Test Item Value Reference Range Interpretation Comments Chloride Level (test code = 2075-0) 121 98-107 [facility]wooderum or plasma carbon dioxide, total measurement (moles/volume)2020-04-09 05:40:00* Test Item Value Reference Range Interpretation Comments Carbon Dioxide Level (test code = 2028-9) 23 22-29 [facility]wooderum or plasma anion khk3958-13-34 05:40:00* Test Item Value Reference Range Interpretation Comments Anion Gap (test code = 42330-6) 8.9 8-16 [facility] or plasma urea nitrogen measurement (mass/volume)2020-04-09 05:40:00* Test Item Value Reference Range Interpretation Comments Blood Urea Nitrogen (test code = 3094-0) 32 7-26 [facility] or plasma creatinine measurement (mass/volume)2020-04-09 05:40:00* Test Item Value Reference Range Interpretation Comments Creatinine (test code = 2160-0) 1.23 0.57-1.11 [facility] or plasma urea nitrogen/creatinine mass lrvbe9684-64-82 05:40:00* Test Item Value Reference Range Interpretation Comments BUN/Creatinine Ratio (test code = 3097-3) 26 6-25 [facility] HospitalEstimated glomerular filtration rate (GFR) rvxcmxzalbvku1238-49-12 05:40:00* Test Item Value Reference Range Interpretation Comments Estimat Glomerular Filtration Rate (test code = 253919941) 43 >60 Ranges were taken from the National Kidney Disease Education Program and the [facility] literature.Reference ranges:60 or greater: Lzmqbw18-95 ( for 3 consecutive months): Chronic kidney disease 15 or less: Kidney failureParkview Regional HospitalGlucose fhjsbhaqoic5716-95-91 05:40:00* Test Item Value Reference Range Interpretation Comments Glucose Level (test code = DSE0739) 92 74-118 [facility] or plasma calcium measurement (mass/volume)2020-04-09 05:40:00* Test Item Value Reference Range Interpretation Comments Calcium Level (test code = 28847-1) 8.3 8.4-10.2 [facility] or plasma magnesium measurement (mass/volume)2020-04-09 05:40:00* Test Item Value Reference Range Interpretation Comments Magnesium Level (test code = 93222-9) 2.0 1.3-2.1 [facility] or plasma total bilirubin measurement (mass/volume)2020-04-09 05:40:00* Test Item Value Reference Range Interpretation Comments Total Bilirubin (test code = 1975-2) 1.5 0.2-1.2 [facility] HospitalFluoroscopic procedure less than one hour bhyhmpgm4822-13-43 05:40:00* Test Item Value Reference Range Interpretation Comments Aspartate Amino Transf (AST/SGOT) (test code = Aspartate Amino Transf (AST/SGOT)) 63 5-34 [facility]wooderum or plasma alanine aminotransferase measurement (enzymatic activity/volume)2020-04-09 05:40:00* Test Item Value Reference Range Interpretation Comments Alanine Aminotransferase (ALT/SGPT) (test code = 1742-6) 27 0-55 [facility] HospitalAmmonia Jpz-zQtn1550-89-23 05:40:00* Test Item Value Reference Range Interpretation Comments Ammonia (test code = 92776-1) 84 31-123 [facility]wooder[facility] or plasma protein measurement (mass/volume)2020-04-09 05:40:00* Test Item Value Reference Range Interpretation Comments Total Protein (test code = 2885-2) 5.5 6.5-8.1 [facility] or plasma albumin measurement (mass/volume)2020-04-09 05:40:00* Test Item Value Reference Range Interpretation Comments Albumin (test code = 1751-7) 2.4 3.5-5.0 [facility] HospitalPlasma globulin measurement (mass/volume) 2020-04-09 05:40:00* Test Item Value Reference Range Interpretation Comments Globulin (test code = 54840-9) 3.1 2.3-3.5 [facility]wood[facility] or plasma albumin/globulin mass bmflu1730-04-21 05:40:00* Test Item Value Reference Range Interpretation Comments Albumin/Globulin Ratio (test code = 1759-0) 0.8 0.8-2.0 [facility]wood[facility] or plasma alkaline phosphatase measurement (enzymatic activity/volume)2020-04-09 05:40:00* Test Item Value Reference Range Interpretation Comments Alkaline Phosphatase (test code = 6768-6) 134 40-150 [facility] HospitalCTA SKSWX1872-53-60 22:17:00 [facility] [address] [place] [address] Patient Name: AMAURY CONTE MR #: [id number] : 1945 Age/Sex: 74/F Req #: [id number] Adm Physician: HUE PETERSON MD Ordered by: Lawanda Cook NP Report #: [id number] Location: MED/SURG3 Room/Bed: 289-1 Procedure: [id number] CT/CTA BRAIN Exam Date: 04/08/20 Exam Time: 1345 REPORT STATUS: Signed CTA NECK, CTA BRAIN H ISTORY: Slurred speech COMPARISON: Head CT 04/07/2020 TECHNIQUE: CT A of the head and neck was performed with intravenous iodine based contrast. C oronal, sagittal, 3-D, and oblique maximum intensity projection reformations w ere created. One or more of the following dose reduction techniques were used : Automated exposure control, adjustment of the mA and/or kV according to song ent size, and/or utilization of iterative reconstruction technique. DISCUSS ION: If present, any cervical carotid stenosis will be measured as a percentag e relative to the [place] artery distal to the stenosis (NASCET). Streak artifa cts obscure some details. CERVICAL CTA: There are mild calcificatio ns in the aortic arch without significant stenosis. Right Carotid: Mild ca lcified plaque at the right carotid bulb does not cause significant stenosis. The right common carotid artery has a slight retropharyngeal course. Left Ca rotid: Mild calcified plaque at the left carotid bulb causes less than 50% f ocal stenosis in the proximal cervical left internal carotid artery. The left common carotid artery also has a slight retropharyngeal course. Right vertebra l artery: Diffusely hypoplastic (the right transverse foramina are small), bu t grossly patent. Left vertebral artery: Patent, no abnormalities. INTRA CRANIAL CTA: Carotid arteries: Diffuse calcified plaque in the bilateral carotid siphons does not cause significant stenosis. No abnormalities in th e A1 or M1 segments. Vertebrobasilar Circulation: Right vertebral arter y: Patent, no abnormalities. Left vertebral artery: Mild calcified plaque in the left V4 segment does not cause significant stenosis. Basilar artery: Pa tent, no abnormalities. Posterior cerebral arteries: Patent, no abnormalitie s. Normal Variants: ACom: Patent. PComs: Patent. Vertebral arteries: Left dominant. The right vertebral artery terminates as the right posterior i nferior cerebellar artery. The major dural venous sinuses are grossly paten t. Additional findings: Bilateral ocular lens replacement. There is mild mo saic attenuation in the upper lungs. Enlarged pulmonary artery suggests pulmon yasmin hypertension. Single lead cardiac device in the left upper chest wall is n oted. There are mild degenerative changes throughout the spine. IMPRESSIO N: 1. Mild bilateral carotid bulb calcified plaque without significant stenos is. 2. Bilateral carotid siphon and left vertebral artery V4 segment calcifie d plaque without significant stenosis. 3. No other cervical or intracranial CTA abnormalities. 4. The right vertebral artery is diffusely hypoplastic, w hich is within normal variation. Signed by: Dr. Sandoval Gonzalez M.D. on 10:35 PM Dictated By: SANDOVAL GONZALEZ MD [id number] Transcribed By: JUAN on 04/08/20 2 235 COPY TO: LAWANDA COOK INTERNET MANAGER CTA [id number] 22:17:00 [place] [address] Patient Name: AMAURY CONTE MR #: [id number] : 1945 Age/Sex: 74/F Req #: [id number] Adm Physician: HUE PETERSON MD Ordered by: Lawanda Cook INTERNET MANAGER Report #: [id number] Location: MED/SURG3 Room/Bed: [facility] Procedure: [id number] CT/CTA NECK Exam Date: 04/08/20 Exam Time: 1345 REPORT STATUS: Signed CTA NECK, CTA BRAIN HI STORY: Slurred speech COMPARISON: Head CT 04/07/2020 TECHNIQUE: CTA of the head and neck was performed with intravenous iodine based contrast. Co gio, sagittal, 3-D, and oblique maximum intensity projection reformations we re created. One or more of the following dose reduction techniques were used: Automated exposure control, adjustment of the mA and/or kV according to patie nt size, and/or utilization of iterative reconstruction technique. DISCUSSI ON: If present, any cervical carotid stenosis will be measured as a percentage relative to the [place] artery distal to the stenosis (NASCET). Streak artifac ts obscure some details. CERVICAL CTA: There are mild calcification s in the aortic arch without significant stenosis. Right Carotid: Mild angelito cified plaque at the right carotid bulb does not cause significant stenosis. T he right common carotid artery has a slight retropharyngeal course. Left Car otid: Mild calcified plaque at the left carotid bulb causes less than 50% fo angelito stenosis in the proximal cervical left internal carotid artery. The left c ommon carotid artery also has a slight retropharyngeal course. Right vertebral artery: Diffusely hypoplastic (the right transverse foramina are small), but grossly patent. Left vertebral artery: Patent, no abnormalities. INTRAC RANIAL CTA: Carotid arteries: Diffuse calcified plaque in the bilateral carotid siphons does not cause significant stenosis. No abnormalities in the A1 or M1 segments. Vertebrobasilar Circulation: Right vertebral artery : Patent, no abnormalities. Left vertebral artery: Mild calcified plaque in t he left V4 segment does not cause significant stenosis. Basilar artery: Pat ent, no abnormalities. Posterior cerebral arteries: Patent, no abnormalities . Normal Variants: ACom: Patent. PComs: Patent. Vertebral arteries: Left dominant. The right vertebral artery terminates as the right posterior in ferior cerebellar artery. The major dural venous sinuses are grossly patent . Additional findings: Bilateral ocular lens replacement. There is mild mos aic attenuation in the upper lungs. Enlarged pulmonary artery suggests pulmona ry hypertension. Single lead cardiac device in the left upper chest wall is no wicho. There are mild degenerative changes throughout the spine. IMPRESSION : 1. Mild bilateral carotid bulb calcified plaque without significant stenosi s. 2. Bilateral carotid siphon and left vertebral artery V4 segment calcified plaque without significant stenosis. 3. No other cervical or intracranial CTA abnormalities. 4. The right vertebral artery is diffusely hypoplastic, wh ich is within normal variation. Signed by: Dr. Sandoval Gonzalez M.D. on 10:35 PM Dictated By: SANDOVAL GONZALEZ MD 34 Transcribed By: JUAN on 04/08/20 COPY TO: LAWANDA COOK NP Serum or plasma folate measurement (mass/volume)2020-04-08 17:10:00* Test Item Value Reference Range Interpretation Comments Folate (test code = 2284-8) 18.4 >3.0 A serum folate concentration of less than 3.1 ng/mL isconsidered to represent cl inical deficiency.Performed at: [place] [id number] Director: Skip Garner MD, Phone: [phone] Medical Center Brownwooderum or plasma folate measurement (mass/volume) 2020-04-08 17:10:00* Test Item Value Reference Range Interpretation Comments Folate (test code = 2284-8) 18.4 >3.0 A serum folate concentration of less than 3.1 ng/mL isconsidered to represent cl inical deficiency.Performed at: [place] [id number] Director: Skip Garner MD, Phone: [phone]. Luke's Health – Memorial Livingston Hospitalol gastrointestinal hemoglobin offrputsf3863-07-58 16:40:00* Test Item Value Reference Range Interpretation Comments Stool Occult Blood (test code = 2335-8) [facility]IT[facility]GATIVE [facility] olwgemnal7382-79-03 16:40:00* Test Item Value Reference Range Interpretation Comments Stool Occult Blood (test code = 2335-8) POSITIVE NEGATIVE [facility] [id number] 10:49:00 [place] [address] Patient Name: AMAURY CONTE MR #: [id number] : 1945 Age/Sex: 74/F [facility] [id number] Req #: [id number] [facility] Physician: HUE PETERSON MD Ordered by: Lawanda Cook NP Report #: [id number] Location: MED/SURG3 Room/Bed: [facility] Procedure: [id number] US/US LIVER Exam Date: 04/08/20 Exam Time: 1008 REPORT STATUS: Signed Abdominal Ultrasound limite d. Clinical Diagnosis: Elevated LFTs. Acute kidney injury. Comparison: None Technique: Multiple transaxial and longitudinal images were obtained through the abdomen with real time ultrasonography. A low-frequency curvilinea r transducer was utilized. Multiple images were submitted for interpretation. Report: Liver: The liver measures 14.1 cm in the right midaxillary line. There are no focal masses or abnormal cysts. The echogenicity is slightly i ncreased. Gallbladder: Status post cholecystectomy Biliary tree: There is no evidence of intra or extra hepatic biliary ductal dilatation. The common radha e duct measures 6 mm. Portal vein: The portal vein measures 10 mm. There is h epatopedal flow. Hepatic veins: Not visualized Pancreas: Not well-visuali zed. Ascites: Absent Pleural Effusion: Absent Right kidney: The right kidn ey measures 11.4 x 5.4 x 4.5 cm. Normal echogenicity. There is no evidence of hydronephrosis, mass, cyst. IVC/Aorta: Partially seen segments demonstrate no IVC abnormality. Aorta is not visualized. Impression: Limited abdominal ultrasound with decreased sensitivity because of the patient's body habitus a nd bowel gas interfering with satisfactory evaluation. There is suggestion of mild hepatic steatosis. The right kidney shows no hydronephrosis or calcul i. Renal cortical echogenicity is normal. Signed by: Jerry Haq MD on 04/08/2020 10:55 AM Dictated By: JERRY HAQ MD Electronically Lilly d By: JERRY HAQ MD on 04/08/20 1055 Transcribed By: JUAN on 04/08/20 1 055 COPY TO: LAWANDA COOK NP CT CHEST [id number] 09:45:00 [place] [address] Patient Name: AMAURY CONTE MR #: [id number] : 1945 Age/Sex: 74/F Req #: [id number] Adm Physician: HUE PETERSON MD Ordered by: Lawanda Cook NP Re port #: [id number] Location: [facility] Room/ Bed: [facility] Procedure: [id number] CT/CT CHEST W O Exam Date: 04/08/20 Exam Time: 0420 REPORT STATUS: Signed CT of the chest. Co mparison: None Clinical History: Altered mental status Technique: Hel ical CT scan of the chest was performed from just above the thoracic inlet thr ough the adrenal glands. Intravenous contrast administration was not utilized . Coronal and sagittal reconstructions were generated from the raw data. Mul tiple images were submitted for interpretation. This exam was performed acc ording to our departmental dose-optimization program which includes automated exposure control, adjustment of the mA and/or kV according to patient size Discussion: Lung bob: Minimal subsegmental atelectasis adjacent to th e left major fissure in the superior segment of the left lower lobe. Otherwise unremarkable. Central airways: Unremarkable Pleural spaces and pleura: Ma rkable Pulmonary beronica: Normal Mediastinum: Scattered lymph nodes normal in size criteria. Cardiac chambers and pericardium: Cardiomegaly. Coronary arter y calcification. Left subclavian route single-chamber pacemaker. Anemia suspec wicho. Systemic great vessels: Patchy atherosclerotic calcification Central p ulmonary vessels: Unremarkable Thyroid: Unremarkable Lymph nodes: As abov e Azygos vein: Unremarkable The esophagus: Normal. Thoracic duct: Unrema rkable Osseous structures: Degenerative changes of the thoracic spine Upper abdomen: Unremarkable Body wall: Obesity Breasts: Unremarkable Axilla: Un remarkable Lower neck: Unremarkable. Impression: No significant disease on this exam. Signed by: Jerry Haq MD on 04/08/2020 9:57 AM Dictat ed By: JERRY HAQ MD 6 COPY TO: LAWANDA COOK NP Blood platelets count by estimate (number/volume)2020-04-08 05:20:00* Test Item Value Reference Range Interpretation Comments Platelet Estimate (test code = 32709-9) ADEQUATE [facility] cmbsjtcnfk0808-45-61 05:20:00* Test Item Value Reference Range Interpretation Comments Platelet Morphology Comment (test code = 91475-3) NORMAL [facility] polychromasia detection by light yfhszufycp1299-65-73 05:20:00* Test Item Value Reference Range Interpretation Comments Polychromasia (test code = 39207-5) FEW [facility] anisocytosis detection by light wrxzofadbv9561-62-28 05:20:00* Test Item Value Reference Range Interpretation Comments Anisocytosis (test code = 702-1) MODERATE [facility] macrocytes detection by light bueqlupzmq8864-07-86 05:20:00* Test Item Value Reference Range Interpretation Comments Macrocytosis (test code = 738-5) MODERATE [facility] ovalocytes detection by light bqyvyltmix2481-23-38 05:20:00* Test Item Value Reference Range Interpretation Comments Ovalocytes (test code = 774-0) FEW [facility] HospitalRBC rdjblygtdl9666-03-24 05:20:00* Test Item Value Reference Range Interpretation Comments Red Cell Morphology Comment (test code = 6742-1) ABNORMAL [facility] HospitalAutomated reticulocyte count as percentage of total zuqeiglmbfgy9366-41-29 05:20:00* Test Item Value Reference Range Interpretation Comments Percent Reticulocyte Count (test code = 77465-6) 5.7 0.8-2 .2 [facility] HospitalFluoroscopic procedure less than one hour medamixs9587-89-28 05:20:00* Test Item Value Reference Range Interpretation Comments Hemoglobin A1c Percent (test code = Hemoglobin A1c Percent) 5.2 4.0-7.0 [facility] iron measurement (mass/volume)2020-04-08 05:20:00* Test Item Value Reference Range Interpretation Comments Iron Level (test code = 2498-4) 62 50-170 [facility]wooderum or plasma iron binding capacity measurement (mass/volume)2020-04-08 05:20:00* Test Item Value Reference Range Interpretation Comments Total Iron Binding Capacity (test code = 2500-7) 413 261-4 78 [facility]wooderum or plasma iron saturation measurement (mass fraction)2020-04-08 05:20:00* Test Item Value Reference Range Interpretation Comments Percent Iron Saturation (test code = 2502-3) 15 15-50 [facility]wood[facility]um or plasma transferrin measurement (mass/volume)2020-04-08 05:20:00* Test Item Value Reference Range Interpretation Comments Transferrin (test code = 3034-6) 295 180-382 [facility]wood[facility]um or plasma triglyceride measurement (mass/volume)2020-04-08 05:20:00* Test Item Value Reference Range Interpretation Comments Triglycerides Level (test code = 2571-8) 76 0-149 [facility]wood[facility] or plasma cholesterol measurement (mass/volume)2020-04-08 05:20:00* Test Item Value Reference Range Interpretation Comments Cholesterol Level (test code = 2093-3) 80 0-199 Less than 200 mg/dL Low Nipe261 - 239 mg/dL Borderline Oosw832 m g/dl and greater High Risk [facility]wood[facility] or plasma cholesterol in LDL measurement (mass/volume) 2020-04-08 05:20:00* Test Item Value Reference Range Interpretation Comments LDL Cholesterol (test code = 2089-1) 48 60-130 [facility] or plasma cholesterol in HDL measurement (mass/volume)2020-04-08 05:20:00* Test Item Value Reference Range Interpretation Comments HDL Cholesterol (test code = 2085-9) 17 40-60 [facility]um or plasma total cholesterol/cholesterol in HDL mass nlodw9963-09-04 05:20:00* Test Item Value Reference Range Interpretation Comments Cholesterol/HDL Ratio (test code = 9830-1) 4.7 3.0-3.6 [facility] plasma creatine kinase measurement (enzymatic activity/volume)2020-04-08 05:20:00* Test Item Value Reference Range Interpretation Comments Creatine Kinase (test code = 2157-6) 56 29-168 [facility]wood[facility] or plasma creatine kinase MB measurement (mass/volume)2020-04-08 05:20:00* Test Item Value Reference Range Interpretation Comments Creatine Kinase MB (test code = 72467-5) 1.30 0-5.0 [facility]onin I measurement by highly sensitive enzyme ismmhmmgqwm2358-14-19 05:20:00* Test Item Value Reference Range Interpretation Comments Troponin I (test code = 83524-7) 0.017 0-0.300 [facility] cobalamin (vitamin B12) measurement (mass/volume)2020-04-08 05:20:00* Test Item Value Reference Range Interpretation Comments Vitamin B12 Level (test code = 43760-8) > 2000 213-816 [facility] platelets count by estimate (number/volume)2020-04-08 05:20:00* Test Item Value Reference Range Interpretation Comments Platelet Estimate (test code = 33313-1) ADEQUATE [facility] HospitalPlatelet ltiudqynhs4183-83-57 05:20:00* Test Item Value Reference Range Interpretation Comments Platelet Morphology Comment (test code = 75567-4) NORMAL [facility]Blood polychromasia detection by light ulzrxevghf3336-04-90 05:20:00* Test Item Value Reference Range Interpretation Comments Polychromasia (test code = 12207-4) FEW [facility]Blood anisocytosis detection by light usdashsvov0689-42-26 05:20:00* Test Item Value Reference Range Interpretation Comments Anisocytosis (test code = 702-1) MODERATE [facility]Blood macrocytes detection by light fqirpfjxpk9310-49-59 05:20:00* Test Item Value Reference Range Interpretation Comments Macrocytosis (test code = 738-5) MODERATE [facility]Blood ovalocytes detection by light ddnetgyfhl1716-87-07 05:20:00* Test Item Value Reference Range Interpretation Comments Ovalocytes (test code = 774-0) FEW [facility] HospitalRBC uhrtipkadg4340-32-97 05:20:00* Test Item Value Reference Range Interpretation Comments Red Cell Morphology Comment (test code = 6742-1) ABNORMAL [facility] HospitalAutomated reticulocyte count as percentage of total kaftkochlezn6601-07-98 05:20:00* Test Item Value Reference Range Interpretation Comments Percent Reticulocyte Count (test code = 69566-4) 5.7 0.8-2 .2 [facility] HospitalFluoroscopic procedure less than one hour oapsohzz5535-09-84 05:20:00* Test Item Value Reference Range Interpretation Comments Hemoglobin A1c Percent (test code = Hemoglobin A1c Percent) 5.2 4.0-7.0 [facility] iron measurement (mass/volume)2020-04-08 05:20:00* Test Item Value Reference Range Interpretation Comments Iron Level (test code = 2498-4) 62 50-170 [facility] plasma iron binding capacity measurement (mass/volume)2020-04-08 05:20:00* Test Item Value Reference Range Interpretation Comments Total Iron Binding Capacity (test code = 2500-7) 413 261-4 78 [facility] or plasma iron saturation measurement (mass fraction)2020-04-08 05:20:00* Test Item Value Reference Range Interpretation Comments Percent Iron Saturation (test code = 2502-3) 15 15-50 [facility] or plasma transferrin measurement (mass/volume)2020-04-08 05:20:00* Test Item Value Reference Range Interpretation Comments Transferrin (test code = 3034-6) 295 180-382 [facility] or plasma triglyceride measurement (mass/volume)2020-04-08 05:20:00* Test Item Value Reference Range Interpretation Comments Triglycerides Level (test code = 2571-8) 76 0-149 [facility] or plasma cholesterol measurement (mass/volume)2020-04-08 05:20:00* Test Item Value Reference Range Interpretation Comments Cholesterol Level (test code = 2093-3) 80 0-199 Less than 200 mg/dL Low Xirq555 - 239 mg/dL Borderline Ubkx656 m g/dl and greater High Risk [facility] or plasma cholesterol in LDL measurement (mass/volume) 2020-04-08 05:20:00* Test Item Value Reference Range Interpretation Comments LDL Cholesterol (test code = 2089-1) 48 60-130 [facility] or plasma cholesterol in HDL measurement (mass/volume)2020-04-08 05:20:00* Test Item Value Reference Range Interpretation Comments HDL Cholesterol (test code = 2085-9) 17 40-60 [facility] or plasma total cholesterol/cholesterol in HDL mass vglbx0124-80-62 05:20:00* Test Item Value Reference Range Interpretation Comments Cholesterol/HDL Ratio (test code = 9830-1) 4.7 3.0-3.6 [facility] or plasma creatine kinase measurement (enzymatic activity/volume)2020-04-08 05:20:00* Test Item Value Reference Range Interpretation Comments Creatine Kinase (test code = 2157-6) 56 29-168 [facility]wood[facility] or plasma creatine kinase MB measurement (mass/volume)2020-04-08 05:20:00* Test Item Value Reference Range Interpretation Comments Creatine Kinase MB (test code = 93962-2) 1.30 0-5.0 [facility] HospitalTroponin I measurement by highly sensitive enzyme qdhetccknwg7336-22-95 05:20:00* Test Item Value Reference Range Interpretation Comments Troponin I (test code = 34233-9) 0.017 0-0.300 [facility]Blood cobalamin (vitamin B12) measurement (mass/volume)2020-04-08 05:20:00* Test Item Value Reference Range Interpretation Comments Vitamin B12 Level (test code = 58039-0) > 1999 213-816 [facility]Blood ovalocytes detection by light exjtbtsnrc5742-46-14 05:20:00* Test Item Value Reference Range Interpretation Comments Ovalocytes (test code = 774-0) FEW [facility] HospitalFluoroscopic procedure less than one hour nujzodfa4548-23-18 05:20:00* Test Item Value Reference Range Interpretation Comments Hemoglobin A1c Percent (test code = Hemoglobin A1c Percent) 5.2 4.0-7.0 [facility] HospitalFluoroscopic procedure less than one hour zbxghhlr7565-67-34 14:27:00* Test Item Value Reference Range Interpretation Comments Coronavirus (PCR) (test code = Coronavirus (PCR)) NOT DETECTED NOTD ETECTED SARS-COV-2 (COVID19), HIGHRISK, RT-PCRNegative results do not preclude SARS-CoV- 2 infection and should not be used as the sole basis for patient management deci sions. Negative results must be combined with clinical observations, patient his tory, and epidemiological information. Optimum specimen types and timing for pea k viral levels during infections caused by SARS-CoV-2 have not been determined. Collection of multiple specimens ot types of specimens may be necessary to detec t virus. Improper specimen collection and handling, sequence variability under p rimers/probes, or organism present below the limit of detection may lead to fals e negative results. Positive and negative predictive values of testing are highl y dependent on prevalance. False negative test results are more likely when prev alence is high.The expected result is negative (not detected).The SARS-CoV-2 lyssa t is intended for the qualitative detection of nucleic acid from SARS-CoV-2 in n asopharyngeal and oropharyngeal swab samples from patients who meet COVID-19 cli nical and or epidemiological criteria. For lower respiratory tract specimens, th e assay is submitted for authoriztion by FDA under an Emergency Use Authorizatio n (EUA). Testing methodology is real time RT-PCR. If received as separate collec tion devices, nasopharygeal and oropharyngeal specimens are combined for analysi s. Additional specimens may be split to a separate accession for analysi and rep orting as this test includes a single unit of service.Test results must be corre lated with clinical presentation and evaluated in the context of other laborator y and epidemiologic data. Test performance can be affected because the epidemiol ogy and clinical spectrum of infection caused by SARS-CoV-2 is not fully known. For example, the optimum types of specimens to collect and when during the cours e of infection these specimens are most likely to contain detectable viral RNA m ay not be known.This test has not been Food and Drug Administration (FDA) cleare d or approved and has been authorized by FDA under an Emergency Use Authorizatio n (EUA). The test is only authorized for the duration of the declaration that ci rcumstances exist justifying the authorization of emergency use of in vitro diag nostic tests for detection and/or diagnosis of SARS-CoV-2 under section 564(b) o f the Act, 21 U.S.C. section 360bbb-3(b)(1), unless the authorization is termina wicho or revoked sooner. [facility] are certified under the C linical Laboratory Improvement Amendments of 1988 (CLIA), 42 U.S.C. section 263a , to perform high complexity tests.Testing performed by [facility] [id number] [place], [place] [phone] Director: Harmeet Chu M.D.CLIA # [id number] [facility] SINGLE (PORTABLE)2020-04-07 12:54:00 [place] [address] Patient Name: AMAURY CONTE MR #: [id number] : 1945 Age/Sex: 74/F Req #: [id number] Adm Physician: Ordered by: NEL BONNER MD Report #: [id number] Location: ER Room/Bed: Procedure: [id number] DX/CHEST SINGL E (PORTABLE) Exam Date: 04/07/20 Exam Time: 1230 REPORT STATUS: Signed EXAMINATION: CHEST SINGLE (PORTABLE) COMPARISON: Chest x-ray 11/10/2018 INDICAT ION: AMS, HYPOTENSION [id number] DISCUSSION: Frontal view of the chest obtained at 1237 hours. HEART AND MEDIASTINUM: The heart is mildly enlarged and stable in morphology LINES: AICD lead terminates in the right ventricle. Battery pack is in the left chest wall. LUNGS/PLEUR A: The lungs are well inflated and clear. Central point vasculature is promin ent and stable. No infiltrates or interstitial edema. No pleural effusion or p neumothorax. BONES AND SOFT TISSUES: No focal osseous lesion. The soft tis sues are normal. IMPRESSION: Stable mild cardiomegaly and central pul monary vascular congestion. No infiltrates. Signed by: Dr. Rocael Klein MD on 04/07/2020 12:58 PM Dictated By: ROCAEL MANNING MD Electron ically Signed By: ROCAEL MANNING MD on 04/07/20 1258 Transcribed By: JUAN on 04/07/20 1258 COPY TO: NEL BONNER MD Urine color hwxjahiiwnxtc7630-58-82 12:25:00* Test Item Value Reference Range Interpretation Comments Urine Color (test code = 5778-6) YELLOW YELLOW [facility] Hospital[facility] csoybjp2803-49-24 12:25:00* Test Item Value Reference Range Interpretation Comments Urine Clarity (test code = 65399-1) CLEAR CLEAR [facility] by Test strip 2020-04-07 12:25:00* Test Item Value Reference Range Interpretation Comments Urine Specific [place] (test code = 5811-5) 1.025 1.010-1.02 5 [facility] by automated test svewa6601-46-62 12:25:00* Test Item Value Reference Range Interpretation Comments Urine pH (test code = 35374-6) 6.5 5-7 [facility] leukocyte esterase detection by nvhyfcay2625-33-57 12:25:00* Test Item Value Reference Range Interpretation Comments Urine Leukocyte Esterase (test code = 5799-2) NEGATIVE NEGATIVE [facility] nitrite uhmkuwexm3963-51-93 12:25:00* Test Item Value Reference Range Interpretation Comments Urine Nitrite (test code = 61169-0) NEGATIVE NEGATIVE [facility] protein measurement by test strip (mass/volume)2020-04-07 12:25:00* Test Item Value Reference Range Interpretation Comments Urine Protein (test code = 5804-0) NEGATIVE NEGATIVE [facility] glucose xlwvapkri8032-81-64 12:25:00* Test Item Value Reference Range Interpretation Comments Urine Glucose (UA) (test code = 2349-9) NEGATIVE NEGATIVE [facility] ketones detection by automated test [id number] 12:25:00* Test Item Value Reference Range Interpretation Comments Urine Ketones (test code = 23854-9) NEGATIVE NEGATIVE [facility] opiates screening [id number] 12:25:00* Test Item Value Reference Range Interpretation Comments Urine Opiates Screen (test code = 47944-7) NEGATIVE NEGATIVE ALL TESTS PERFORMED MANUALLY ON [employer] TOX/SEE TESTParkview [facility] HospitalBarbiturates screen, mokds5449-15-57 12:25:00* Test Item Value Reference Range Interpretation Comments Urine Barbiturates Screen (test code = 193424011) NEGATIVE NEGA TIVE [facility] phencyclidine detection by screening mcqadk6642-78-80 12:25:00* Test Item Value Reference Range Interpretation Comments Urine Phencyclidine Screen (test code = 24252-0) NEGATIVE NEGAT RAUDEL [facility] amphetamines detection by screen method > 1000 ng/mB7619-23-06 12:25:00* Test Item Value Reference Range Interpretation Comments Urine Amphetamines Screen (test code = 15889-7) NEGATIVE NEGATI VE [facility] HospitalFluoroscopic procedure less than one hour lsnvldee1614-81-02 12:25:00* Test Item Value Reference Range Interpretation Comments Urine Methamphetamines Screen (test code = Urine Metha mphetamines Screen) NEGATIVE NEGATIVE [facility] benzodiazepines detection by screening nkhdvz7565-90-26 12:25:00* Test Item Value Reference Range Interpretation Comments Urine Benzodiazepines Screen (test code = 76879-5) NEGATIVE NEG ATIVE [facility] cocaine measurement (mass/volume) 2020-04-07 12:25:00* Test Item Value Reference Range Interpretation Comments Urine Cocaine Screen (test code = 3398-5) NEGATIVE NEGATIVE [facility]Urine cannabinoids detection by screening zqnhlj7514-65-64 12:25:00* Test Item Value Reference Range Interpretation Comments Urine Cannabinoids Screen (test code = 87575-3) NEGATIVE NEGATI VE THESE RESULTS ARE FOR MEDICAL TREATMENT ONLYTHIS REPORT CONTAINS UNCONFIR MED SCREENING RESULTS*POSITIVE RESULTS WILL BE CONFIRMED BY REFERENCE LAB UPON R EQUEST CUT-OFFDRUG CLASS CONCENTRATION ng/mLAmphetamines 1000Methamphetamines 1000Cocaine 300Opiate 300Phencyc lidine 25Cannabinoid 50Barbiturates 300Benzodiazepine 300Methadone 300[facility]adone kbaanw5729-81-24 12:25:00* Test Item Value Reference Range Interpretation Comments Urine Methadone Screen (test code = 71858-5) NEGATIVE NEGATIVE THESE RESULTS ARE FOR MEDICAL TREATMENT ONLYTHIS REPORT CONTAINS UNCONFIR MED SCREENING RESULTS*POSITIVE RESULTS WILL BE CONFIRMED BY REFERENCE LAB UPON R EQUEST CUT-OFFDRUG CLASS CONCENTRATION ng/mLAmphetamines 1000Methamphetamines 1000Cocaine Metabolite 300Opiate 300Phencyc lidine 25Cannabinoid 50Barbiturates 300Benzodiazepine 300Methadone 300[facility] urobilinogen measurement by test strip (mass/volume)2020-04-07 12:25:00* Test Item Value Reference Range Interpretation Comments Urine Urobilinogen (test code = 01461-0) 8 0.2-1 [facility] total bilirubin measurement (mass/volume)2020-04-07 12:25:00* Test Item Value Reference Range Interpretation Comments Urine Bilirubin (test code = 1978-6) NEGATIVE NEGATIVE [facility] erythrocytes xkbmlkcqn0098-03-16 12:25:00* Test Item Value Reference Range Interpretation Comments Urine Blood (test code = 60750-1) NEGATIVE NEGATIVE [facility] HospitalAutomated urine sediment leukocyte count by microscopy (number/high power field)2020-04-07 12:25:00* Test Item Value Reference Range Interpretation Comments Urine WBC (test code = 5821-4) 0-5 0-5 [facility] HospitalErythrocytes detection in urine sediment by light koqcpfbksd6073-85-54 12:25:00* Test Item Value Reference Range Interpretation Comments Urine RBC (test code = 63895-7) 0-5 0-5 [facility] HospitalBacteria detection in urine sediment by light rxtkhidxwq2394-96-49 12:25:00* Test Item Value Reference Range Interpretation Comments Urine Bacteria (test code = 51591-6) RARE NONE [facility] HospitalEpithelial cells detection in urine sediment by light czqllvdrgg2394-90-52 12:25:00* Test Item Value Reference Range Interpretation Comments Urine Epithelial Cells (test code = 42645-1) RARE NONE [facility] HospitalUrine color ulcopasyubrlf5012-78-19 12:25:00* Test Item Value Reference Range Interpretation Comments Urine Color (test code = 5778-6) YELLOW YELLOW [facility] HospitalUrine mikxrdn8564-59-09 12:25:00* Test Item Value Reference Range Interpretation Comments Urine Clarity (test code = 68031-1) CLEAR [facility]AR [facility]wood[facility] gravity of Urine by Test strip 2020-04-07 12:25:00* Test Item Value Reference Range Interpretation Comments Urine Specific [place] (test code = 5811-5) 1.025 1.010-1.02 5 [facility] HospitalU[facility] pH measurement by automated test mdlho7101-13-92 12:25:00* Test Item Value Reference Range Interpretation Comments Urine pH (test code = 16899-0) 6.5 5-7 [facility] HospitalU[facility] leukocyte esterase detection by oqkhpejh4493-66-05 12:25:00* Test Item Value Reference Range Interpretation Comments Urine Leukocyte Esterase (test code = 5799-2) NEGATIVE NEGATIVE [facility] HospitalUrine nitrite dsfctnewf4702-76-90 12:25:00* Test Item Value Reference Range Interpretation Comments Urine Nitrite (test code = 97084-1) NEGATIVE NEGATIVE [facility] HospitalU[facility] protein measurement by test strip (mass/volume)2020-04-07 12:25:00* Test Item Value Reference Range Interpretation Comments Urine Protein (test code = 5804-0) NEGATIVE NEGATIVE [facility] HospitalUrine glucose rhijbmawp8595-38-80 12:25:00* Test Item Value Reference Range Interpretation Comments Urine Glucose (UA) (test code = 2349-9) NEGATIVE NEGATIVE [facility] HospitalUrine ketones detection by automated test royuy1320-83-16 12:25:00* Test Item Value Reference Range Interpretation Comments Urine Ketones (test code = 42725-8) NEGATIVE NEGATIVE [facility] HospitalUrine opiates screening ggfg1376-84-08 12:25:00* Test Item Value Reference Range Interpretation Comments Urine Opiates Screen (test code = 04229-9) NEGATIVE NEGATIVE ALL TESTS PERFORMED MANUALLY ON [employer] TOX/SEE TESTParkview [facility] HospitalBarbiturates screen, blibl0970-61-99 12:25:00* Test Item Value Reference Range Interpretation Comments Urine Barbiturates Screen (test code = 340486297) NEGATIVE NEGA TIVE [facility] HospitalUrine phencyclidine detection by screening josabg0056-85-76 12:25:00* Test Item Value Reference Range Interpretation Comments Urine Phencyclidine Screen (test code = 46922-4) NEGATIVE NEGAT RAUDEL [facility] HospitalUrine amphetamines detection by screen method > 1000 ng/aO1767-68-69 12:25:00* Test Item Value Reference Range Interpretation Comments Urine Amphetamines Screen (test code = 97265-3) NEGATIVE NEGATI VE [facility] HospitalFluoroscopic procedure less than one hour nrynqrmz6211-66-51 12:25:00* Test Item Value Reference Range Interpretation Comments Urine Methamphetamines Screen (test code = Urine Metha mphetamines Screen) NEGATIVE NEGATIVE [facility] HospitalUrine benzodiazepines detection by screening ghdazs1857-62-89 12:25:00* Test Item Value Reference Range Interpretation Comments Urine Benzodiazepines Screen (test code = 00964-7) NEGATIVE NEG ATIVE [facility] HospitalUrine cocaine measurement (mass/volume) 2020-04-07 12:25:00* Test Item Value Reference Range Interpretation Comments Urine Cocaine Screen (test code = 3398-5) NEGATIVE NEGATIVE [facility] HospitalUrine cannabinoids detection by screening ulqyrs2350-85-72 12:25:00* Test Item Value Reference Range Interpretation Comments Urine Cannabinoids Screen (test code = 17707-9) NEGATIVE NEGATI VE THESE RESULTS ARE FOR MEDICAL TREATMENT ONLYTHIS REPORT CONTAINS UNCONFIR MED SCREENING RESULTS*POSITIVE RESULTS WILL BE CONFIRMED BY REFERENCE LAB UPON R EQUEST CUT-OFFDRUG CLASS CONCENTRATION ng/mLAmphetamines 1000Methamphetamines 1000Cocaine 300Opiate 300Phencyc lidine 25Cannabinoid 50Barbiturates 300Benzodiazepine 300Methadone 300[facility] HospitalUrine methadone gmssme7593-87-75 12:25:00* Test Item Value Reference Range Interpretation Comments Urine Methadone Screen (test code = 85515-7) NEGATIVE NEGATIVE THESE RESULTS ARE FOR MEDICAL TREATMENT ONLYTHIS REPORT CONTAINS UNCONFIR MED SCREENING RESULTS*POSITIVE RESULTS WILL BE CONFIRMED BY REFERENCE LAB UPON R EQUEST CUT-OFFDRUG CLASS CONCENTRATION ng/mLAmphetamines 1000Methamphetamines 1000Cocaine Metabolite 300Opiate 300Phencyc lidine 25Cannabinoid 50Barbiturates 300Benzodiazepine 300Methadone 300[facility] HospitalUrine urobilinogen measurement by test strip (mass/volume)2020-04-07 12:25:00* Test Item Value Reference Range Interpretation Comments Urine Urobilinogen (test code = 51638-7) 8 0.2-1 [facility] total bilirubin measurement (mass/volume)2020-04-07 12:25:00* Test Item Value Reference Range Interpretation Comments Urine Bilirubin (test code = 1978-6) NEGATIVE NEGATIVE [facility] HospitalU[facility] erythrocytes tsdxrnfaa5104-26-83 12:25:00* Test Item Value Reference Range Interpretation Comments Urine Blood (test code = 19911-8) NEGATIVE NEGATIVE [facility] HospitalAutomated urine sediment leukocyte count by microscopy (number/high power field)2020-04-07 12:25:00* Test Item Value Reference Range Interpretation Comments Urine WBC (test code = 5821-4) 0-5 0-5 [facility] HospitalErythrocytes detection in urine sediment by light oxpjmoikvu6752-73-58 12:25:00* Test Item Value Reference Range Interpretation Comments Urine RBC (test code = 26934-6) 0-5 0-5 [facility] HospitalBacteria detection in urine sediment by light soxemdpeor7388-24-26 12:25:00* Test Item Value Reference Range Interpretation Comments Urine Bacteria (test code = 50156-1) RARE NONE [facility] HospitalEpithelial cells detection in urine sediment by light iurwidofjx1124-98-59 12:25:00* Test Item Value Reference Range Interpretation Comments Urine Epithelial Cells (test code = 82606-9) RARE NONE [facility] HospitalUrine opiates screening dcru2668-85-31 12:25:00* Test Item Value Reference Range Interpretation Comments Urine Opiates Screen (test code = 63325-0) NEGATIVE NEGATIVE ALL TESTS PERFORMED MANUALLY ON [employer] TOX/SEE TESTParkview [facility] HospitalBarbiturates screen, tpums9263-73-55 12:25:00* Test Item Value Reference Range Interpretation Comments Urine Barbiturates Screen (test code = 835007186) NEGATIVE NEGA TIVE [facility] HospitalUrine phencyclidine detection by screening brvhbk6597-04-06 12:25:00* Test Item Value Reference Range Interpretation Comments Urine Phencyclidine Screen (test code = 10083-6) NEGATIVE NEGAT RAUDEL [facility] HospitalUrine amphetamines detection by screen method > 1000 ng/sT7086-70-15 12:25:00* Test Item Value Reference Range Interpretation Comments Urine Amphetamines Screen (test code = 75084-7) NEGATIVE NEGATI VE [facility] HospitalFluoroscopic procedure less than one hour klovcksz0459-66-87 12:25:00* Test Item Value Reference Range Interpretation Comments Urine Methamphetamines Screen (test code = Urine Metha mphetamines Screen) NEGATIVE NEGATIVE [facility] HospitalUrine benzodiazepines detection by screening sgwnff2159-22-96 12:25:00* Test Item Value Reference Range Interpretation Comments Urine Benzodiazepines Screen (test code = 38537-6) NEGATIVE NEG ATIVE [facility] HospitalUrine cocaine measurement (mass/volume) 2020-04-07 12:25:00* Test Item Value Reference Range Interpretation Comments Urine Cocaine Screen (test code = 3398-5) NEGATIVE NEGATIVE [facility] cannabinoids detection by screening rxfkmc8705-75-09 12:25:00* Test Item Value Reference Range Interpretation Comments Urine Cannabinoids Screen (test code = 70621-0) NEGATIVE NEGATI VE THESE RESULTS ARE FOR MEDICAL TREATMENT ONLYTHIS REPORT CONTAINS UNCONFIR MED SCREENING RESULTS*POSITIVE RESULTS WILL BE CONFIRMED BY REFERENCE LAB UPON R EQUEST CUT-OFFDRUG CLASS CONCENTRATION ng/mLAmphetamines 1000Methamphetamines 1000Cocaine 300Opiate 300Phencyc lidine 25Cannabinoid 50Barbiturates 300Benzodiazepine 300Methadone 300[facility] HospitalUrine methadone jmivqp7688-30-12 12:25:00* Test Item Value Reference Range Interpretation Comments Urine Methadone Screen (test code = 43270-7) NEGATIVE NEGATIVE THESE RESULTS ARE FOR MEDICAL TREATMENT ONLYTHIS REPORT CONTAINS UNCONFIR MED SCREENING RESULTS*POSITIVE RESULTS WILL BE CONFIRMED BY REFERENCE LAB UPON R EQUEST CUT-OFFDRUG CLASS CONCENTRATION ng/mLAmphetamines 1000Methamphetamines 1000Cocaine Metabolite 300Opiate 300Phencyc lidine 25Cannabinoid 50Barbiturates 300Benzodiazepine 300Methadone 300[facility] HospitalCT BRAIN [id number] 12:01:00 [facility] [address] [place] [address] Patient Name: AMAURY CONTE MR #: [id number] : 1945 Age/Sex: 74/F Req #: [id number] Adm Physician: Ordered by: NEL BONNER MD Report #: [id number] Location: ER Room/Bed: Procedure: [id number] CT/CT BRAIN WO Exam Date: 04/07/20 Exam Time: 1120 REPORT STATUS: Signed History:Weakness Com parison studies: Head CT on 11/10/2018 Technique: Axial images were obta ined from the skull base to the vertex. Coronal and sagittal images reconstruc wicho from the axial data. Dose modulation, iterative reconstruction, and/or ziyad ght based adjustment of the mA/kV was utilized to reduce the radiation dose t o as low as reasonably achievable. Intravenous contrast: None Findi ngs: Scalp/skull: No abnormalities. Extra-axial spaces: No tejinder s. No fluid collections. Brain sulci: Mildly prominent. Ventricles: Mild compensatory dilatation. No hydrocephalus. Parenchyma: Ill-defined, con fluent hypodensities in the supratentorial white matter are microvascular isch emic changes. No masses, hemorrhage, acute or chronic cortical vascular insul ts. Sellar/suprasellar region: No abnormalities. Craniocervical junction: Patent foramen magnum. No Chiari one malformation. Incidental findings: Atherosclerotic calcifications in the carotid siphons and left vertebral esther ry. Impression: 1. No acute abnormalities. 2. No changes when comp ared to head CT of 11/10/2018 Chronic findings: * Mild generalized volume loss. * Moderate supratentorial white matter small vessel ischemic changes. Signed by: Dr. Srinath Lara M.D. on 04/07/2020 12:03 PM Dictat ed By: SRINATH LARA MD, MD 1203 Transcribed By: JUAN on 04/07/20 1203 COPY TO : NEL BONNER MD Activated partial thromboplastin time (aPTT) in platelet poor plasma by coagulation reqgc9284-06-79 11:55:00* Test Item Value Reference Range Interpretation Comments Activated Partial Thromboplast Time (test code = 07374-9) 42.7 23.8-35.5 [facility] HospitalFluoroscopic procedure less than one hour badfrhwu8305-50-63 11:55:00* Test Item Value Reference Range Interpretation Comments Lactic Acid Level (test code = Lactic Acid Level) 1.9 0.5- 2.0 [facility] HospitalFree thyroxine oqfli2299-86-58 11:55:00* Test Item Value Reference Range Interpretation Comments Free Thyroxine Index (test code = 38478-0) 3.3708 1.4-3.8 [facility] or plasma thyroxine (T4) measurement (mass/volume)2020-04-07 11:55:00* Test Item Value Reference Range Interpretation Comments Thyroxine (T4) (test code = 3026-2) 9.45 4.5-10.9 Our current method for Total T4 is not recommended for use as the only marker fo r evaluating patients for thyroid disorders.[facility] or plasma triiodothyronine resin uptake (T3RU)2020-04-07 11:55:00* Test Item Value Reference Range Interpretation Comments Triiodothyronine (T3) Uptake (test code = 3050-2) 35.67 22.5 -37.0 [facility]wood[facility]um or plasma thyrotropin measurement by detection limit <= 0.005 miu/l (units/volume)2020-04-07 11:55:00* Test Item Value Reference Range Interpretation Comments Thyroid Stimulating Hormone (TSH) (test code = 75177-9) 4.627 0.350-4.940 [facility] HospitalBlood tcqafza4176-62-42 11:55:00* Test Item Value Reference Range Interpretation Comments Blood Culture (test code = 13394664) NO GROWTH AFTER 48 HOURS [facility] HospitalActivated partial thromboplastin time (aPTT) in platelet poor plasma by coagulation tutve8732-00-36 11:55:00* Test Item Value Reference Range Interpretation Comments Activated Partial Thromboplast Time (test code = 74230-6) 42.7 23.8-35.5 [facility] HospitalFluoroscopic procedure less than one hour ziqoxnkq2772-14-39 11:55:00* Test Item Value Reference Range Interpretation Comments Lactic Acid Level (test code = Lactic Acid Level) 1.9 0.5- 2.0 [facility] HospitalFree thyroxine omryy9410-17-04 11:55:00* Test Item Value Reference Range Interpretation Comments Free Thyroxine Index (test code = 65365-1) 3.3708 1.4-3.8 [facility] plasma thyroxine (T4) measurement (mass/volume)2020-04-07 11:55:00* Test Item Value Reference Range Interpretation Comments Thyroxine (T4) (test code = 3026-2) 9.45 4.5-10.9 Our current method for Total T4 is not recommended for use as the only marker fo r evaluating patients for thyroid disorders.[facility] or plasma triiodothyronine resin uptake (T3RU)2020-04-07 11:55:00* Test Item Value Reference Range Interpretation Comments Triiodothyronine (T3) Uptake (test code = 3050-2) 35.67 22.5 -37.0 [facility] or plasma thyrotropin measurement by detection limit <= 0.005 miu/l (units/volume)2020-04-07 11:55:00* Test Item Value Reference Range Interpretation Comments Thyroid Stimulating Hormone (TSH) (test code = 15839-1) 4.627 0.350-4.940 [facility] HospitalBlood pbwzxfz5628-08-86 11:55:00* Test Item Value Reference Range Interpretation Comments Blood Culture (test code = 06205957) NO GROWTH AFTER 5 DAYS, FINAL REPORT [facility]Free thyroxine hogsu9748-36-51 11:55:00* Test Item Value Reference Range Interpretation Comments Free Thyroxine Index (test code = 43541-4) 3.3708 1.4-3.8 [facility] plasma thyroxine (T4) measurement (mass/volume)2020-04-07 11:55:00* Test Item Value Reference Range Interpretation Comments Thyroxine (T4) (test code = 3026-2) 9.45 4.5-10.9 Our current method for Total T4 is not recommended for use as the only marker fo r evaluating patients for thyroid disorders.[facility] or plasma triiodothyronine resin uptake (T3RU)2020-04-07 11:55:00* Test Item Value Reference Range Interpretation Comments Triiodothyronine (T3) Uptake (test code = 3050-2) 35.67 22.5 -37.0 [facility] or plasma thyrotropin measurement by detection limit <= 0.005 miu/l (units/volume)2020-04-07 11:55:00* Test Item Value Reference Range Interpretation Comments Thyroid Stimulating Hormone (TSH) (test code = 30954-9) 4.627 0.350-4.940 [facility] HospitalGLUBED2020-03-26 08:44:00* Test Item Value Reference Range Interpretation Comments GLUBED (test code = GLUBED) 128 mg/dL 74-106 H Performed by certified brim welt sewing machine operator at [facility] [employer] HLQZG5192-36-67 03:36:00* Test Item Value Reference Range Interpretation Comments SODIUM (test code = NA) 143 mmol/L 136-145 N POTASSIUM (test code = K) 4.0 mmol/L 3.5-5.1 N CHLORIDE (test code = CL) 110.0 mmol/L 98-107 H CARBON DIOXIDE (test code = CO2) 27.0 mmol/L 21-32 N ANION GAP (test code = GAP) 10.0 10-20 N GLUCOSE (test code = GLU) 161 mg/dL 74-106 H BLOOD UREA NITROGEN (test code = BUN) 13 mg/dL 7-18 N GLOMERULAR FILTRATION RATE (test code = GFR) 54 mL/min >=60 Estimated GFR by using Modified MDRD formula.Chronic kidney disease is defined as either kidney damageor GFR <60 mL/min/1.73 m2 for >3 months. CREATININE (test code = CREAT) 1.00 mg/dL 0.55-1.02 N Note change in reference range due to change in reagent. BUN/CREATININE RATIO (test code = BUN/CREA) 13.0 10-20 N CALCIUM (test code = CA) 8.6 mg/dL 8.5-10.1 N BASIC METABOLIC [id number] 03:32:00* Test Item Value Reference Range Interpretation Comments SODIUM (test code = NA) 143 mmol/L 136-145 N POTASSIUM (test code = K) 4.0 mmol/L 3.5-5.1 N CHLORIDE (test code = CL) 110.0 mmol/L 98-107 H CARBON DIOXIDE (test code = CO2) mmol/L 21-32 ANION GAP (test code = GAP) 10-20 GLUCOSE (test code = GLU) mg/dL 74-106 BLOOD UREA NITROGEN (test code = BUN) mg/dL 7-18 GLOMERULAR FILTRATION RATE (test code = GFR) mL/min >=60 CREATININE (test code = CREAT) mg/dL 0.55-1.02 BUN/CREATININE RATIO (test code = BUN/CREA) 10-20 CALCIUM (test code = CA) mg/dL 8.5-10.1 CBC W/AUTO [id number] 03:19:00* Test Item Value Reference Range Interpretation Comments WHITE BLOOD CELL (test code = WBC) 5.2 K/mm3 4.5-12.5 N RED BLOOD CELL (test code = RBC) 3.58 mill/mm3 3.7-5.2 L HEMOGLOBIN (test code = HGB) 11.9 gram/dL 11.5-15.5 N HEMATOCRIT (test code = HCT) 36.8 % 36.0-46.0 N MEAN CELL VOLUME (test code = MCV) 102.8 fL 80-98 H MEAN CELL HGB (test code = MCH) 33.2 picogram 27.0-33.0 H MEAN CELL HGB CONCETRATION (test code = MCHC) 32.3 gram/dL 33.0-36. 0 L RED CELL DISTRIBUTION WIDTH (test code = RDW) 14.8 % 11.6-16. 2 N RED CELL DISTRIBUTION WIDTH SD (test code = RDW-SD) 56.3 fL 37 .0-51.0 H PLATELET COUNT (test code = PLT) 112 K/mm3 150-450 L MEAN PLATELET VOLUME (test code = MPV) 11.6 fL 6.7-11.0 H NEUTROPHIL % (test code = NT%) 57.1 % 39.0-69.0 N IMMATURE GRANULOCYTE % (test code = IG%) 0.6 % 0.0-5.0 N LYMPHOCYTE % (test code = LY%) 22.0 % 25.0-55.0 L MONOCYTE % (test code = MO%) 15.7 % 0.0-10.0 H EOSINOPHIL % (test code = EO%) 4.0 % 0.0-5.0 N BASOPHIL % (test code = BA%) 0.6 % 0.0-1.0 N NUCLEATED RBC % (test code = NRBC%) 0.0 % 0-0 N NEUTROPHIL # (test code = NT#) 2.99 K/mm3 1.8-7.7 N IMMATURE GRANULOCYTE # (test code = IG#) 0.03 x10 3/uL 0-0.03 N LYMPHOCYTE # (test code = LY#) 1.15 K/mm3 1.0-5.0 N MONOCYTE # (test code = MO#) 0.82 K/mm3 0-0.8 H EOSINOPHIL # (test code = EO#) 0.21 K/mm3 0.0-0.5 N BASOPHIL # (test code = BA#) 0.03 K/mm3 0.0-0.2 N NUCLEATED RBC # (test code = NRBC#) 0.00 K/mm3 0.0-0.1 N MANUAL DIFF REQUIRED (test code = MDIFF) NO CBC W/AUTO [id number] 03:17:00* Test Item Value Reference Range Interpretation Comments WHITE BLOOD CELL (test code = WBC) K/mm3 4.5-12.5 RED BLOOD CELL (test code = RBC) mill/mm3 3.7-5.2 HEMOGLOBIN (test code = HGB) 11.9 gram/dL 11.5-15.5 N HEMATOCRIT (test code = HCT) 36.8 % 36.0-46.0 N MEAN CELL VOLUME (test code = MCV) fL 80-98 MEAN CELL HGB (test code = MCH) picogram 27.0-33.0 MEAN CELL HGB CONCETRATION (test code = MCHC) gram/dL 33.0-36. 0 RED CELL DISTRIBUTION WIDTH (test code = RDW) % 11.6-16. 2 RED CELL DISTRIBUTION WIDTH SD (test code = RDW-SD) fL 37 .0-51.0 PLATELET COUNT (test code = PLT) K/mm3 150-450 MEAN PLATELET VOLUME (test code = MPV) fL 6.7-11.0 NEUTROPHIL % (test code = NT%) % 39.0-69.0 IMMATURE GRANULOCYTE % (test code = IG%) % 0.0-5.0 LYMPHOCYTE % (test code = LY%) % 25.0-55.0 MONOCYTE % (test code = MO%) % 0.0-10.0 EOSINOPHIL % (test code = EO%) % 0.0-5.0 BASOPHIL % (test code = BA%) % 0.0-1.0 NEUTROPHIL # (test code = NT#) K/mm3 1.8-7.7 LYMPHOCYTE # (test code = LY#) K/mm3 1.0-5.0 MONOCYTE # (test code = MO#) K/mm3 0-0.8 EOSINOPHIL # (test code = EO#) K/mm3 0.0-0.5 BASOPHIL # (test code = BA#) K/mm3 0.0-0.2 [id number] 21:19:00* Test Item Value Reference Range Interpretation Comments GLUBED (test code = GLUBED) 215 mg/dL 74-106 H Performed by certified brim welt sewing machine operator at [facility] [id number] 15:38:00* Test Item Value Reference Range Interpretation Comments GLUBED (test code = GLUBED) 227 mg/dL 74-106 H Performed by certified brim welt sewing machine operator at [facility] [id number] 11:50:00* Test Item Value Reference Range Interpretation Comments GLUBED (test code = GLUBED) 277 mg/dL 74-106 H Performed by certified brim welt sewing machine operator at [facility] [id number] 08:17:00* Test Item Value Reference Range Interpretation Comments GLUBED (test code = GLUBED) 180 mg/dL 74-106 H Performed by certified brim welt sewing machine operator at [facility] [id number] 20:14:00* Test Item Value Reference Range Interpretation Comments GLUBED (test code = GLUBED) 208 mg/dL 74-106 H Performed by certified brim welt sewing machine operator at [facility] [id number] 19:07:00* Test Item Value Reference Range Interpretation Comments GLUBED (test code = GLUBED) 169 mg/dL 74-106 H Performed by certified brim welt sewing machine operator at [facility] [id number] 13:04:00* Test Item Value Reference Range Interpretation Comments GLUBED (test code = GLUBED) 190 mg/dL 74-106 H Performed by certified brim welt sewing machine operator at [facility] [id number] 08:23:00* Test Item Value Reference Range Interpretation Comments GLUBED (test code = GLUBED) 143 mg/dL 74-106 H Performed by certified brim welt sewing machine operator at [facility] COMPREHENSIVE METABOLIC [id number] 06:46:00* Test Item Value Reference Range Interpretation Comments SODIUM (test code = NA) 144 mmol/L 136-145 N POTASSIUM (test code = K) 3.3 mmol/L 3.5-5.1 L CHLORIDE (test code = CL) 111.4 mmol/L 98-107 H CARBON DIOXIDE (test code = CO2) 25.0 mmol/L 21-32 N ANION GAP (test code = GAP) 10.9 10-20 N GLUCOSE (test code = GLU) 159 mg/dL 74-106 H BLOOD UREA NITROGEN (test code = BUN) 21 mg/dL 7-18 H GLOMERULAR FILTRATION RATE (test code = GFR) 51 mL/min >=60 Estimated GFR by using Modified MDRD formula.Chronic kidney disease is defined as either kidney damageor GFR <60 mL/min/1.73 m2 for >3 months. CREATININE (test code = CREAT) 1.06 mg/dL 0.55-1.02 H Note change in reference range due to change in reagent. BUN/CREATININE RATIO (test code = BUN/CREA) 19.8 10-20 N TOTAL PROTEIN (test code = PROT) 6.1 gram/dL 6.4-8.2 L ALBUMIN (test code = ALB) 2.8 g/dL 3.4-5.0 L GLOBULIN (test code = GLOB) 3.3 gram/dL 2.7-4.2 N ALBUMIN/GLOBULIN RATIO (test code = A/G) 0.9 0.75-1.50 N CALCIUM (test code = CA) 8.9 mg/dL 8.5-10.1 N BILIRUBIN TOTAL (test code = BILT) 1.50 mg/dL 0.0-1.0 H SGOT/AST (test code = AST) 45 IUnit/L 15-37 H SGPT/ALT (test code = ALT) 26 IUnit/L 12-78 N ALKALINE PHOSPHATASE TOTAL (test code = ALKP) 82 IUnit/L 45-117 N Note change in reference range due to change in reagent. COMPREHENSIVE METABOLIC [id number] 06:45:00* Test Item Value Reference Range Interpretation Comments SODIUM (test code = NA) 144 mmol/L 136-145 N POTASSIUM (test code = K) 3.3 mmol/L 3.5-5.1 L CHLORIDE (test code = CL) 111.4 mmol/L 98-107 H CARBON DIOXIDE (test code = CO2) mmol/L 21-32 ANION GAP (test code = GAP) 10-20 GLUCOSE (test code = GLU) 159 mg/dL 74-106 H BLOOD UREA NITROGEN (test code = BUN) 21 mg/dL 7-18 H GLOMERULAR FILTRATION RATE (test code = GFR) 51 mL/min >=60 Estimated GFR by using Modified MDRD formula.Chronic kidney disease is defined as either kidney damageor GFR <60 mL/min/1.73 m2 for >3 months. CREATININE (test code = CREAT) 1.06 mg/dL 0.55-1.02 H Note change in reference range due to change in reagent. BUN/CREATININE RATIO (test code = BUN/CREA) 19.8 10-20 N TOTAL PROTEIN (test code = PROT) 6.1 gram/dL 6.4-8.2 L ALBUMIN (test code = ALB) 2.8 g/dL 3.4-5.0 L GLOBULIN (test code = GLOB) 3.3 gram/dL 2.7-4.2 N ALBUMIN/GLOBULIN RATIO (test code = A/G) 0.9 0.75-1.50 N CALCIUM (test code = CA) 8.9 mg/dL 8.5-10.1 N BILIRUBIN TOTAL (test code = BILT) 1.50 mg/dL 0.0-1.0 H SGOT/AST (test code = AST) 45 IUnit/L 15-37 H SGPT/ALT (test code = ALT) 26 IUnit/L 12-78 N ALKALINE PHOSPHATASE TOTAL (test code = ALKP) 82 IUnit/L 45-117 N Note change in reference range due to change in reagent. CBC W/AUTO [id number] 05:44:00* Test Item Value Reference Range Interpretation Comments WHITE BLOOD CELL (test code = WBC) 4.7 K/mm3 4.5-12.5 N RED BLOOD CELL (test code = RBC) 3.54 mill/mm3 3.7-5.2 L HEMOGLOBIN (test code = HGB) 11.8 gram/dL 11.5-15.5 N HEMATOCRIT (test code = HCT) 36.1 % 36.0-46.0 N MEAN CELL VOLUME (test code = MCV) 102.0 fL 80-98 H MEAN CELL HGB (test code = MCH) 33.3 picogram 27.0-33.0 H MEAN CELL HGB CONCETRATION (test code = MCHC) 32.7 gram/dL 33.0-36. 0 L RED CELL DISTRIBUTION WIDTH (test code = RDW) 15.0 % 11.6-16. 2 N RED CELL DISTRIBUTION WIDTH SD (test code = RDW-SD) 55.9 fL 37 .0-51.0 H PLATELET COUNT (test code = PLT) 113 K/mm3 150-450 L MEAN PLATELET VOLUME (test code = MPV) 11.8 fL 6.7-11.0 H NEUTROPHIL % (test code = NT%) 53.1 % 39.0-69.0 N IMMATURE GRANULOCYTE % (test code = IG%) 0.2 % 0.0-5.0 N LYMPHOCYTE % (test code = LY%) 26.1 % 25.0-55.0 N MONOCYTE % (test code = MO%) 15.5 % 0.0-10.0 H EOSINOPHIL % (test code = EO%) 4.0 % 0.0-5.0 N BASOPHIL % (test code = BA%) 1.1 % 0.0-1.0 H NUCLEATED RBC % (test code = NRBC%) 0.0 % 0-0 N NEUTROPHIL # (test code = NT#) 2.50 K/mm3 1.8-7.7 N IMMATURE GRANULOCYTE # (test code = IG#) 0.01 x10 3/uL 0-0.03 N LYMPHOCYTE # (test code = LY#) 1.23 K/mm3 1.0-5.0 N MONOCYTE # (test code = MO#) 0.73 K/mm3 0-0.8 N EOSINOPHIL # (test code = EO#) 0.19 K/mm3 0.0-0.5 N BASOPHIL # (test code = BA#) 0.05 K/mm3 0.0-0.2 N NUCLEATED RBC # (test code = NRBC#) 0.00 K/mm3 0.0-0.1 N MANUAL DIFF REQUIRED (test code = MDIFF) NO CBC W/AUTO [id number] 05:37:00* Test Item Value Reference Range Interpretation Comments WHITE BLOOD CELL (test code = WBC) K/mm3 4.5-12.5 RED BLOOD CELL (test code = RBC) mill/mm3 3.7-5.2 HEMOGLOBIN (test code = HGB) 11.8 gram/dL 11.5-15.5 N HEMATOCRIT (test code = HCT) 36.1 % 36.0-46.0 N MEAN CELL VOLUME (test code = MCV) fL 80-98 MEAN CELL HGB (test code = MCH) picogram 27.0-33.0 MEAN CELL HGB CONCETRATION (test code = MCHC) gram/dL 33.0-36. 0 RED CELL DISTRIBUTION WIDTH (test code = RDW) % 11.6-16. 2 RED CELL DISTRIBUTION WIDTH SD (test code = RDW-SD) fL 37 .0-51.0 PLATELET COUNT (test code = PLT) K/mm3 150-450 MEAN PLATELET VOLUME (test code = MPV) fL 6.7-11.0 NEUTROPHIL % (test code = NT%) % 39.0-69.0 IMMATURE GRANULOCYTE % (test code = IG%) % 0.0-5.0 LYMPHOCYTE % (test code = LY%) % 25.0-55.0 MONOCYTE % (test code = MO%) % 0.0-10.0 EOSINOPHIL % (test code = EO%) % 0.0-5.0 BASOPHIL % (test code = BA%) % 0.0-1.0 NEUTROPHIL # (test code = NT#) K/mm3 1.8-7.7 LYMPHOCYTE # (test code = LY#) K/mm3 1.0-5.0 MONOCYTE # (test code = MO#) K/mm3 0-0.8 EOSINOPHIL # (test code = EO#) K/mm3 0.0-0.5 BASOPHIL # (test code = BA#) K/mm3 0.0-0.2 [id number] 20:53:00* Test Item Value Reference Range Interpretation Comments GLUBED (test code = GLUBED) 226 mg/dL 74-106 H Performed by certified brim welt sewing machine operator at [facility] [id number] 17:24:00* Test Item Value Reference Range Interpretation Comments GLUBED (test code = GLUBED) 209 mg/dL 74-106 H Performed by certified brim welt sewing machine operator at [facility] [id number] 12:37:00* Test Item Value Reference Range Interpretation Comments GLUBED (test code = GLUBED) 179 mg/dL 74-106 H Performed by certified brim welt sewing machine operator at [facility] [id number] 08:06:00* Test Item Value Reference Range Interpretation Comments GLUBED (test code = GLUBED) 144 mg/dL 74-106 H Performed by certified brim welt sewing machine operator at [facility] [id number] 04:55:00* Test Item Value Reference Range Interpretation Comments GLUBED (test code = GLUBED) 182 mg/dL 74-106 H Performed by certified brim welt sewing machine operator at [facility] COMPREHENSIVE METABOLIC [id number] 04:30:00* Test Item Value Reference Range Interpretation Comments SODIUM (test code = NA) 150 mmol/L 136-145 H Resu lts called to by [email or web address] 01/08/20 0430Critical results verified and read back by Nurse? POTASSIUM (test code = K) 4.0 mmol/L 3.5-5.1 N CHLORIDE (test code = CL) 122.0 mmol/L 98-107 H CARBON DIOXIDE (test code = CO2) 27.0 mmol/L 21-32 N ANION GAP (test code = GAP) 5.0 10-20 L GLUCOSE (test code = GLU) 166 mg/dL 74-106 H BLOOD UREA NITROGEN (test code = BUN) 28 mg/dL 7-18 H GLOMERULAR FILTRATION RATE (test code = GFR) 40 mL/min >=60 Estimated GFR by using Modified MDRD formula.Chronic kidney disease is defined as either kidney damageor GFR <60 mL/min/1.73 m2 for >3 months. CREATININE (test code = CREAT) 1.30 mg/dL 0.55-1.02 H Note change in reference range due to change in reagent. BUN/CREATININE RATIO (test code = BUN/CREA) 21.5 10-20 H TOTAL PROTEIN (test code = PROT) 6.0 gram/dL 6.4-8.2 L ALBUMIN (test code = ALB) 2.8 g/dL 3.4-5.0 L GLOBULIN (test code = GLOB) 3.2 gram/dL 2.7-4.2 N ALBUMIN/GLOBULIN RATIO (test code = A/G) 0.9 0.75-1.50 N CALCIUM (test code = CA) 9.1 mg/dL 8.5-10.1 N BILIRUBIN TOTAL (test code = BILT) 1.20 mg/dL 0.0-1.0 H SGOT/AST (test code = AST) 39 IUnit/L 15-37 H SGPT/ALT (test code = ALT) 24 IUnit/L 12-78 N ALKALINE PHOSPHATASE TOTAL (test code = ALKP) 90 IUnit/L 45-117 N Note change in reference range due to change in reagent. CBC W/AUTO [id number] 03:59:00* Test Item Value Reference Range Interpretation Comments WHITE BLOOD CELL (test code = WBC) 5.0 K/mm3 4.5-12.5 N RED BLOOD CELL (test code = RBC) 3.61 mill/mm3 3.7-5.2 L HEMOGLOBIN (test code = HGB) 12.0 gram/dL 11.5-15.5 N HEMATOCRIT (test code = HCT) 37.0 % 36.0-46.0 N MEAN CELL VOLUME (test code = MCV) 102.5 fL 80-98 H MEAN CELL HGB (test code = MCH) 33.2 picogram 27.0-33.0 H MEAN CELL HGB CONCETRATION (test code = MCHC) 32.4 gram/dL 33.0-36. 0 L RED CELL DISTRIBUTION WIDTH (test code = RDW) 15.0 % 11.6-16. 2 N RED CELL DISTRIBUTION WIDTH SD (test code = RDW-SD) 55.9 fL 37 .0-51.0 H PLATELET COUNT (test code = PLT) 117 K/mm3 150-450 L MEAN PLATELET VOLUME (test code = MPV) 12.0 fL 6.7-11.0 H NEUTROPHIL % (test code = NT%) 62.4 % 39.0-69.0 N IMMATURE GRANULOCYTE % (test code = IG%) 0.4 % 0.0-5.0 N LYMPHOCYTE % (test code = LY%) 21.1 % 25.0-55.0 L MONOCYTE % (test code = MO%) 13.1 % 0.0-10.0 H EOSINOPHIL % (test code = EO%) 2.4 % 0.0-5.0 N BASOPHIL % (test code = BA%) 0.6 % 0.0-1.0 N NUCLEATED RBC % (test code = NRBC%) 0.0 % 0-0 N NEUTROPHIL # (test code = NT#) 3.10 K/mm3 1.8-7.7 N IMMATURE GRANULOCYTE # (test code = IG#) 0.02 x10 3/uL 0-0.03 N LYMPHOCYTE # (test code = LY#) 1.05 K/mm3 1.0-5.0 N MONOCYTE # (test code = MO#) 0.65 K/mm3 0-0.8 N EOSINOPHIL # (test code = EO#) 0.12 K/mm3 0.0-0.5 N BASOPHIL # (test code = BA#) 0.03 K/mm3 0.0-0.2 N NUCLEATED RBC # (test code = NRBC#) 0.00 K/mm3 0.0-0.1 N MANUAL DIFF REQUIRED (test code = MDIFF) NO CBC W/AUTO [id number] 03:55:00* Test Item Value Reference Range Interpretation Comments WHITE BLOOD CELL (test code = WBC) K/mm3 4.5-12.5 RED BLOOD CELL (test code = RBC) mill/mm3 3.7-5.2 HEMOGLOBIN (test code = HGB) 12.0 gram/dL 11.5-15.5 N HEMATOCRIT (test code = HCT) 37.0 % 36.0-46.0 N MEAN CELL VOLUME (test code = MCV) fL 80-98 MEAN CELL HGB (test code = MCH) picogram 27.0-33.0 MEAN CELL HGB CONCETRATION (test code = MCHC) gram/dL 33.0-36. 0 RED CELL DISTRIBUTION WIDTH (test code = RDW) % 11.6-16. 2 RED CELL DISTRIBUTION WIDTH SD (test code = RDW-SD) fL 37 .0-51.0 PLATELET COUNT (test code = PLT) K/mm3 150-450 MEAN PLATELET VOLUME (test code = MPV) fL 6.7-11.0 NEUTROPHIL % (test code = NT%) % 39.0-69.0 IMMATURE GRANULOCYTE % (test code = IG%) % 0.0-5.0 LYMPHOCYTE % (test code = LY%) % 25.0-55.0 MONOCYTE % (test code = MO%) % 0.0-10.0 EOSINOPHIL % (test code = EO%) % 0.0-5.0 BASOPHIL % (test code = BA%) % 0.0-1.0 NEUTROPHIL # (test code = NT#) K/mm3 1.8-7.7 LYMPHOCYTE # (test code = LY#) K/mm3 1.0-5.0 MONOCYTE # (test code = MO#) K/mm3 0-0.8 EOSINOPHIL # (test code = EO#) K/mm3 0.0-0.5 BASOPHIL # (test code = BA#) K/mm3 0.0-0.2 [id number] 19:48:00* Test Item Value Reference Range Interpretation Comments GLUBED (test code = GLUBED) 180 mg/dL 74-106 H Performed by certified brim welt sewing machine operator at [facility] [id number] 15:47:00* Test Item Value Reference Range Interpretation Comments GLUBED (test code = GLUBED) 207 mg/dL 74-106 H Performed by certified brim welt sewing machine operator at [facility] [id number] 12:22:00* Test Item Value Reference Range Interpretation Comments GLUBED (test code = GLUBED) 167 mg/dL 74-106 H Performed by certified brim welt sewing machine operator at [facility] [id number] 08:05:00* Test Item Value Reference Range Interpretation Comments GLUBED (test code = GLUBED) 112 mg/dL 74-106 H Performed by certified brim welt sewing machine operator at [facility] COMPREHENSIVE METABOLIC [id number] 05:27:00* Test Item Value Reference Range Interpretation Comments SODIUM (test code = NA) 149 mmol/L 136-145 H POTASSIUM (test code = K) 3.7 mmol/L 3.5-5.1 N CHLORIDE (test code = CL) 117.0 mmol/L 98-107 H CARBON DIOXIDE (test code = CO2) 27.0 mmol/L 21-32 N ANION GAP (test code = GAP) 8.7 10-20 L GLUCOSE (test code = GLU) 133 mg/dL 74-106 H BLOOD UREA NITROGEN (test code = BUN) 31 mg/dL 7-18 H GLOMERULAR FILTRATION RATE (test code = GFR) 40 mL/min >=60 Estimated GFR by using Modified MDRD formula.Chronic kidney disease is defined as either kidney damageor GFR <60 mL/min/1.73 m2 for >3 months. CREATININE (test code = CREAT) 1.30 mg/dL 0.55-1.02 H Note change in reference range due to change in reagent. BUN/CREATININE RATIO (test code = BUN/CREA) 23.8 10-20 H TOTAL PROTEIN (test code = PROT) 6.1 gram/dL 6.4-8.2 L ALBUMIN (test code = ALB) 2.7 g/dL 3.4-5.0 L GLOBULIN (test code = GLOB) 3.4 gram/dL 2.7-4.2 N ALBUMIN/GLOBULIN RATIO (test code = A/G) 0.8 0.75-1.50 N CALCIUM (test code = CA) 9.1 mg/dL 8.5-10.1 N BILIRUBIN TOTAL (test code = BILT) 1.10 mg/dL 0.0-1.0 H SGOT/AST (test code = AST) 36 IUnit/L 15-37 N SGPT/ALT (test code = ALT) 24 IUnit/L 12-78 N ALKALINE PHOSPHATASE TOTAL (test code = ALKP) 91 IUnit/L 45-117 N Note change in reference range due to change in reagent. COMPREHENSIVE METABOLIC [id number] 05:19:00* Test Item Value Reference Range Interpretation Comments SODIUM (test code = NA) 149 mmol/L 136-145 H POTASSIUM (test code = K) 3.7 mmol/L 3.5-5.1 N CHLORIDE (test code = CL) 117.0 mmol/L 98-107 H CARBON DIOXIDE (test code = CO2) mmol/L 21-32 ANION GAP (test code = GAP) 10-20 GLUCOSE (test code = GLU) mg/dL 74-106 BLOOD UREA NITROGEN (test code = BUN) mg/dL 7-18 GLOMERULAR FILTRATION RATE (test code = GFR) mL/min >=60 CREATININE (test code = CREAT) mg/dL 0.55-1.02 BUN/CREATININE RATIO (test code = BUN/CREA) 10-20 TOTAL PROTEIN (test code = PROT) gram/dL 6.4-8.2 ALBUMIN (test code = ALB) g/dL 3.4-5.0 GLOBULIN (test code = GLOB) gram/dL 2.7-4.2 ALBUMIN/GLOBULIN RATIO (test code = A/G) 0.75-1.50 CALCIUM (test code = CA) mg/dL 8.5-10.1 BILIRUBIN TOTAL (test code = BILT) mg/dL 0.0-1.0 SGOT/AST (test code = AST) IUnit/L 15-37 SGPT/ALT (test code = ALT) IUnit/L 12-78 ALKALINE PHOSPHATASE TOTAL (test code = ALKP) IUnit/L 45-117 CBC W/AUTO [id number] 04:57:00* Test Item Value Reference Range Interpretation Comments WHITE BLOOD CELL (test code = WBC) 3.7 K/mm3 4.5-12.5 L RED BLOOD CELL (test code = RBC) 3.54 mill/mm3 3.7-5.2 L HEMOGLOBIN (test code = HGB) 11.8 gram/dL 11.5-15.5 N HEMATOCRIT (test code = HCT) 36.3 % 36.0-46.0 N MEAN CELL VOLUME (test code = MCV) 103.1 fL 80-98 H MEAN CELL HGB (test code = MCH) 33.3 picogram 27.0-33.0 H MEAN CELL HGB CONCETRATION (test code = MCHC) 32.3 gram/dL 33.0-36. 0 L RED CELL DISTRIBUTION WIDTH (test code = RDW) 15.1 % 11.6-16. 2 N RED CELL DISTRIBUTION WIDTH SD (test code = RDW-SD) 57.5 fL 37 .0-51.0 H PLATELET COUNT (test code = PLT) 112 K/mm3 150-450 L MEAN PLATELET VOLUME (test code = MPV) 11.9 fL 6.7-11.0 H NEUTROPHIL % (test code = NT%) 46.0 % 39.0-69.0 N IMMATURE GRANULOCYTE % (test code = IG%) 0.5 % 0.0-5.0 N LYMPHOCYTE % (test code = LY%) 30.4 % 25.0-55.0 N MONOCYTE % (test code = MO%) 17.3 % 0.0-10.0 H EOSINOPHIL % (test code = EO%) 4.7 % 0.0-5.0 N BASOPHIL % (test code = BA%) 1.1 % 0.0-1.0 H NUCLEATED RBC % (test code = NRBC%) 0.0 % 0-0 N NEUTROPHIL # (test code = NT#) 1.68 K/mm3 1.8-7.7 L IMMATURE GRANULOCYTE # (test code = IG#) 0.02 x10 3/uL 0-0.03 N LYMPHOCYTE # (test code = LY#) 1.11 K/mm3 1.0-5.0 N MONOCYTE # (test code = MO#) 0.63 K/mm3 0-0.8 N EOSINOPHIL # (test code = EO#) 0.17 K/mm3 0.0-0.5 N BASOPHIL # (test code = BA#) 0.04 K/mm3 0.0-0.2 N NUCLEATED RBC # (test code = NRBC#) 0.00 K/mm3 0.0-0.1 N MANUAL DIFF REQUIRED (test code = MDIFF) NO CBC W/AUTO [id number] 04:49:00* Test Item Value Reference Range Interpretation Comments WHITE BLOOD CELL (test code = WBC) K/mm3 4.5-12.5 RED BLOOD CELL (test code = RBC) mill/mm3 3.7-5.2 HEMOGLOBIN (test code = HGB) 11.8 gram/dL 11.5-15.5 N HEMATOCRIT (test code = HCT) 36.3 % 36.0-46.0 N MEAN CELL VOLUME (test code = MCV) fL 80-98 MEAN CELL HGB (test code = MCH) picogram 27.0-33.0 MEAN CELL HGB CONCETRATION (test code = MCHC) gram/dL 33.0-36. 0 RED CELL DISTRIBUTION WIDTH (test code = RDW) % 11.6-16. 2 RED CELL DISTRIBUTION WIDTH SD (test code = RDW-SD) fL 37 .0-51.0 PLATELET COUNT (test code = PLT) K/mm3 150-450 MEAN PLATELET VOLUME (test code = MPV) fL 6.7-11.0 NEUTROPHIL % (test code = NT%) % 39.0-69.0 IMMATURE GRANULOCYTE % (test code = IG%) % 0.0-5.0 LYMPHOCYTE % (test code = LY%) % 25.0-55.0 MONOCYTE % (test code = MO%) % 0.0-10.0 EOSINOPHIL % (test code = EO%) % 0.0-5.0 BASOPHIL % (test code = BA%) % 0.0-1.0 NEUTROPHIL # (test code = NT#) K/mm3 1.8-7.7 LYMPHOCYTE # (test code = LY#) K/mm3 1.0-5.0 MONOCYTE # (test code = MO#) K/mm3 0-0.8 EOSINOPHIL # (test code = EO#) K/mm3 0.0-0.5 BASOPHIL # (test code = BA#) K/mm3 0.0-0.2 [id number] 21:21:00* Test Item Value Reference Range Interpretation Comments GLUBED (test code = GLUBED) 162 mg/dL 74-106 H Performed by certified brim welt sewing machine operator at [facility] [id number] 18:39:00* Test Item Value Reference Range Interpretation Comments GLUBED (test code = GLUBED) 233 mg/dL 74-106 H Performed by certified brim welt sewing machine operator at [facility] - XR CHEST 1 [id number] 16:47:00 FAX: Zaira Beltran MD [phone] [place]: [address] St: ADM Name: AMAURY MAZA [facility] : [birth year] Age/S: 74/F [address] Unit #: [id number] Loc: V.3107 [place] [address] Phys: Zaira Woodard MD Acct: [id number] Dis Date: Status: ADM IN PHONE #: [phone] Exam Date: 01/06/2020 1611 FAX #: [phone] Reason: SOB EXAMS: CPT CODE: [id number] XR CHEST 1 V 49949 HISTORY: Shortness of breath and d yspnea. COMPARISON: March 17, 2016. Location: TH. No acute infiltrates, effusion or congestion is noted. Suboptimal inspiration. Dependent changes. Left ICD with the lead in the right v entricle. Moderate cardiomegaly. IMPRESSION: No acute infiltrates, effusion or congestion. Electronically Lilly d by Ammy Castrejon on 01/06/2020 at 5101 Reported an d signed by: Reynold Castrejon M.D. CC: Zaira Woodard MD Technologist: Vesna Cordova(R) Trnscrd Date/Time/By: 01/06/2020 (115) : By: [place] H4 Orig Print D/T: S: 01/06/2020 (2880) PAGE 1 Signed Report GLUBED 2020-01-06 16:19:00* Test Item Value Reference Range Interpretation Comments GLUBED (test code = GLUBED) 192 mg/dL 74-106 H Performed by certified brim welt sewing machine operator at [facility] [id number] 12:12:00* Test Item Value Reference Range Interpretation Comments GLUBED (test code = GLUBED) 112 mg/dL 74-106 H Performed by certified brim welt sewing machine operator at [facility] [id number] 07:42:00* Test Item Value Reference Range Interpretation Comments GLUBED (test code = GLUBED) 105 mg/dL 74-106 N Performed by certified brim welt sewing machine operator at [facility] COMPREHENSIVE METABOLIC [id number] 06:08:00* Test Item Value Reference Range Interpretation Comments SODIUM (test code = NA) 147 mmol/L 136-145 H POTASSIUM (test code = K) 4.7 mmol/L 3.5-5.1 N CHLORIDE (test code = CL) 114.0 mmol/L 98-107 H CARBON DIOXIDE (test code = CO2) 26.0 mmol/L 21-32 N ANION GAP (test code = GAP) 11.7 10-20 N GLUCOSE (test code = GLU) 128 mg/dL 74-106 H BLOOD UREA NITROGEN (test code = BUN) 31 mg/dL 7-18 H GLOMERULAR FILTRATION RATE (test code = GFR) 37 mL/min >=60 Estimated GFR by using Modified MDRD formula.Chronic kidney disease is defined as either kidney damageor GFR <60 mL/min/1.73 m2 for >3 months. CREATININE (test code = CREAT) 1.40 mg/dL 0.55-1.02 H Note change in reference range due to change in reagent. BUN/CREATININE RATIO (test code = BUN/CREA) 22.1 10-20 H TOTAL PROTEIN (test code = PROT) 6.1 gram/dL 6.4-8.2 L ALBUMIN (test code = ALB) 2.8 g/dL 3.4-5.0 L GLOBULIN (test code = GLOB) 3.3 gram/dL 2.7-4.2 N ALBUMIN/GLOBULIN RATIO (test code = A/G) 0.9 0.75-1.50 N CALCIUM (test code = CA) 9.0 mg/dL 8.5-10.1 N BILIRUBIN TOTAL (test code = BILT) 1.20 mg/dL 0.0-1.0 H SGOT/AST (test code = AST) 47 IUnit/L 15-37 H SGPT/ALT (test code = ALT) 24 IUnit/L 12-78 N ALKALINE PHOSPHATASE TOTAL (test code = ALKP) 84 IUnit/L 45-117 N Note change in reference range due to change in reagent. COMPREHENSIVE METABOLIC [id number] 05:58:00* Test Item Value Reference Range Interpretation Comments SODIUM (test code = NA) 147 mmol/L 136-145 H POTASSIUM (test code = K) 4.7 mmol/L 3.5-5.1 N CHLORIDE (test code = CL) 114.0 mmol/L 98-107 H CARBON DIOXIDE (test code = CO2) mmol/L 21-32 ANION GAP (test code = GAP) 10-20 GLUCOSE (test code = GLU) mg/dL 74-106 BLOOD UREA NITROGEN (test code = BUN) mg/dL 7-18 GLOMERULAR FILTRATION RATE (test code = GFR) mL/min >=60 CREATININE (test code = CREAT) mg/dL 0.55-1.02 BUN/CREATININE RATIO (test code = BUN/CREA) 10-20 TOTAL PROTEIN (test code = PROT) gram/dL 6.4-8.2 ALBUMIN (test code = ALB) g/dL 3.4-5.0 GLOBULIN (test code = GLOB) gram/dL 2.7-4.2 ALBUMIN/GLOBULIN RATIO (test code = A/G) 0.75-1.50 CALCIUM (test code = CA) mg/dL 8.5-10.1 BILIRUBIN TOTAL (test code = BILT) mg/dL 0.0-1.0 SGOT/AST (test code = AST) IUnit/L 15-37 SGPT/ALT (test code = ALT) IUnit/L 12-78 ALKALINE PHOSPHATASE TOTAL (test code = ALKP) IUnit/L 45-117 CBC W/AUTO [id number] 05:31:00* Test Item Value Reference Range Interpretation Comments WHITE BLOOD CELL (test code = WBC) 4.3 K/mm3 4.5-12.5 L RED BLOOD CELL (test code = RBC) 3.65 mill/mm3 3.7-5.2 L HEMOGLOBIN (test code = HGB) 12.2 gram/dL 11.5-15.5 N HEMATOCRIT (test code = HCT) 40.4 % 36.0-46.0 N MEAN CELL VOLUME (test code = MCV) 110.7 fL 80-98 H MEAN CELL HGB (test code = MCH) 33.4 picogram 27.0-33.0 H MEAN CELL HGB CONCETRATION (test code = MCHC) 30.2 gram/dL 33.0-36. 0 L RED CELL DISTRIBUTION WIDTH (test code = RDW) 15.3 % 11.6-16. 2 N RED CELL DISTRIBUTION WIDTH SD (test code = RDW-SD) 62.6 fL 37 .0-51.0 H PLATELET COUNT (test code = PLT) 117 K/mm3 150-450 L MEAN PLATELET VOLUME (test code = MPV) 11.9 fL 6.7-11.0 H NEUTROPHIL % (test code = NT%) 38.3 % 39.0-69.0 L IMMATURE GRANULOCYTE % (test code = IG%) 0.5 % 0.0-5.0 N LYMPHOCYTE % (test code = LY%) 38.1 % 25.0-55.0 N MONOCYTE % (test code = MO%) 18.0 % 0.0-10.0 H EOSINOPHIL % (test code = EO%) 3.9 % 0.0-5.0 N BASOPHIL % (test code = BA%) 1.2 % 0.0-1.0 H NUCLEATED RBC % (test code = NRBC%) 0.0 % 0-0 N NEUTROPHIL # (test code = NT#) 1.66 K/mm3 1.8-7.7 L IMMATURE GRANULOCYTE # (test code = IG#) 0.02 x10 3/uL 0-0.03 N LYMPHOCYTE # (test code = LY#) 1.65 K/mm3 1.0-5.0 N MONOCYTE # (test code = MO#) 0.78 K/mm3 0-0.8 N EOSINOPHIL # (test code = EO#) 0.17 K/mm3 0.0-0.5 N BASOPHIL # (test code = BA#) 0.05 K/mm3 0.0-0.2 N NUCLEATED RBC # (test code = NRBC#) 0.00 K/mm3 0.0-0.1 N MANUAL DIFF REQUIRED (test code = MDIFF) NO CBC W/AUTO [id number] 05:30:00* Test Item Value Reference Range Interpretation Comments WHITE BLOOD CELL (test code = WBC) K/mm3 4.5-12.5 RED BLOOD CELL (test code = RBC) mill/mm3 3.7-5.2 HEMOGLOBIN (test code = HGB) 12.2 gram/dL 11.5-15.5 N HEMATOCRIT (test code = HCT) 40.4 % 36.0-46.0 N MEAN CELL VOLUME (test code = MCV) fL 80-98 MEAN CELL HGB (test code = MCH) picogram 27.0-33.0 MEAN CELL HGB CONCETRATION (test code = MCHC) gram/dL 33.0-36. 0 RED CELL DISTRIBUTION WIDTH (test code = RDW) % 11.6-16. 2 RED CELL DISTRIBUTION WIDTH SD (test code = RDW-SD) fL 37 .0-51.0 PLATELET COUNT (test code = PLT) K/mm3 150-450 MEAN PLATELET VOLUME (test code = MPV) fL 6.7-11.0 NEUTROPHIL % (test code = NT%) % 39.0-69.0 IMMATURE GRANULOCYTE % (test code = IG%) % 0.0-5.0 LYMPHOCYTE % (test code = LY%) % 25.0-55.0 MONOCYTE % (test code = MO%) % 0.0-10.0 EOSINOPHIL % (test code = EO%) % 0.0-5.0 BASOPHIL % (test code = BA%) % 0.0-1.0 NEUTROPHIL # (test code = NT#) K/mm3 1.8-7.7 LYMPHOCYTE # (test code = LY#) K/mm3 1.0-5.0 MONOCYTE # (test code = MO#) K/mm3 0-0.8 EOSINOPHIL # (test code = EO#) K/mm3 0.0-0.5 BASOPHIL # (test code = BA#) K/mm3 0.0-0.2 VITAMIN [id number] 01:16:00* Test Item Value Reference Range Interpretation Comments VITAMIN B12 (test code = VITB12) 823 pg/mL 193-986 N FOLIC [id number] 01:16:00* Test Item Value Reference Range Interpretation Comments FOLIC ACID (test code = FOL) 18.7 ng/mL 3.10-17.50 H [id number] 00:53:00* Test Item Value Reference Range Interpretation Comments TROPONIN-I (test code = TROPI) <0.015 ng/mL 0-0.045 N URINALYSIS [id number] 23:28:00* Test Item Value Reference Range Interpretation Comments UA COLOR (test code = COLU) Light-Yellow YELLOW UA APPEARANCE (test code = APPU) CLEAR CLEAR UA GLUCOSE DIPSTICK (test code = DGLUU) NEGATIVE mg/dL NEGATIVE UA BILIRUBIN DIPSTICK (test code = BILU) NEGATIVE mg/dL NEGATIVE UA KETONE DIPSTICK (test code = KETU) NEGATIVE mg/dL NEGATIVE UA SPECIFIC GRAVITY (test code = SGU) 1.011 1.001-1.035 UA BLOOD DIPSTICK (test code = DEBORA) Negative mg/dL NEGATIVE UA PH DIPSTICK (test code = BIB) 6.0 5.0-8.0 UA PROTEIN DIPSTICK (test code = PROU) NEGATIVE mg/dL NEGATIVE UA UROBILINIOGEN DIPSTICK (test code = URO) 3.0 (1+) mg/dL NEGATIVE A UA NITRITE DIPSTICK (test code = GERALDINE) NEGATIVE NEGATIVE UA LEUKOCYTE ESTERASE W REFLEX (test code = LEUUR) NEGATIVE Rena/uL NEGATIVE UA WBC (test code = WBCU) 0-5 per HPF 0-5 UA RBC (test code = RBCU) 0-2 #/HPF 0-5 UA EPITHELIAL CELLS (test code = EPIU) FEW per HPF FEW UA BACTERIA (test code = BACU) NONE SEEN #/HPF NONE Urine Source? [id number] 22:41:00* Test Item Value Reference Range Interpretation Comments TROPONIN-I (test code = TROPI) <0.015 ng/mL 0-0.045 N [id number] 21:53:00* Test Item Value Reference Range Interpretation Comments GLUBED (test code = GLUBED) 133 mg/dL 74-106 H Performed by certified brim welt sewing machine operator at [facility] COMPREHENSIVE METABOLIC [id number] 19:55:00* Test Item Value Reference Range Interpretation Comments SODIUM (test code = NA) 144 mmol/L 136-145 N POTASSIUM (test code = K) 4.3 mmol/L 3.5-5.1 N CHLORIDE (test code = CL) 112.0 mmol/L 98-107 H CARBON DIOXIDE (test code = CO2) 26.0 mmol/L 21-32 N ANION GAP (test code = GAP) 10.3 10-20 N GLUCOSE (test code = GLU) 118 mg/dL 74-106 H BLOOD UREA NITROGEN (test code = BUN) 30 mg/dL 7-18 H GLOMERULAR FILTRATION RATE (test code = GFR) 34 mL/min >=60 Estimated GFR by using Modified MDRD formula.Chronic kidney disease is defined as either kidney damageor GFR <60 mL/min/1.73 m2 for >3 months. CREATININE (test code = CREAT) 1.50 mg/dL 0.55-1.02 H Note change in reference range due to change in reagent. BUN/CREATININE RATIO (test code = BUN/CREA) 20.0 10-20 N TOTAL PROTEIN (test code = PROT) 7.0 gram/dL 6.4-8.2 N ALBUMIN (test code = ALB) 3.1 g/dL 3.4-5.0 L GLOBULIN (test code = GLOB) 3.9 gram/dL 2.7-4.2 N ALBUMIN/GLOBULIN RATIO (test code = A/G) 0.8 0.75-1.50 N CALCIUM (test code = CA) 8.9 mg/dL 8.5-10.1 N BILIRUBIN TOTAL (test code = BILT) 1.30 mg/dL 0.0-1.0 H SGOT/AST (test code = AST) 52 IUnit/L 15-37 H SGPT/ALT (test code = ALT) 28 IUnit/L 12-78 N ALKALINE PHOSPHATASE TOTAL (test code = ALKP) 94 IUnit/L 45-117 N Note change in reference range due to change in reagent. [id number] 19:55:00* Test Item Value Reference Range Interpretation Comments PHOSPHORUS (test code = PHOS) 2.3 mg/dL 2.5-4.9 L [id number] 19:55:00* Test Item Value Reference Range Interpretation Comments MAGNESIUM (test code = MAG) 2.0 mg/dL 1.8-2.4 N THYROID STIMULATING [id number] 19:55:00* Test Item Value Reference Range Interpretation Comments THYROID STIMULATING HORMONE (test code = TSH) 0.406 uIU/mL 0.36-3.7 4 N TSH REFERENCE RANGES: EUTHYROID: 0.35 - 4.3 mIU/mL HYPO : > 5.5 mIU/mL HYPER : < 0.35 mIU/mL [id number] 19:50:00* Test Item Value Reference Range Interpretation Comments TROPONIN-I (test code = TROPI) <0.015 ng/mL 0-0.045 N LIPID PROFILE (CORONARY RISK)2020-01-05 19:45:00* Test Item Value Reference Range Interpretation Comments TRIGLYCERIDES (test code = TRIG) 110 mg/dL 20-150 N CHOLESTEROL (test code = CHOL) 91 mg/dL 0-200 N CHOLESTEROL/HDL RATIO (test code = CHOLHDL) 3.0 RATIO 0-4.9 N RISK ASSOCIATED WITH CHOL/HDL RATIOS: Risk Male Female1/2 AVERAGE 3.43 3.27AVERAGE 4.97 4.442X AVERAGE 9.55 7.053X AVERAGE 23.39 11.04 REFERENCE VALUE IS RELATED TO RISK LEVELS ASRECOMMENDED BY THE [facility]. HEART, LUNG, AND BLOOD INST. HDL CHOLESTEROL (test code = HDL) 25 mg/dL 40-60 L LIPOPROTEIN LDL (test code = LDL) 54 mg/dL 100-129 L Reference Interval: mg/dL mmol/L Optimal <100 <2.6Near/above optimal 100-129 2.6- 3.3Borderline High 130-159 3.4-4.1High 160-189 4.1-4.9Very High >=190 >=4.9========= This LDL result is a direct measurement.========= COMPREHENSIVE METABOLIC [id number] 19:38:00* Test Item Value Reference Range Interpretation Comments SODIUM (test code = NA) 144 mmol/L 136-145 N POTASSIUM (test code = K) 4.3 mmol/L 3.5-5.1 N CHLORIDE (test code = CL) 112.0 mmol/L 98-107 H CARBON DIOXIDE (test code = CO2) mmol/L 21-32 ANION GAP (test code = GAP) 10-20 GLUCOSE (test code = GLU) mg/dL 74-106 BLOOD UREA NITROGEN (test code = BUN) mg/dL 7-18 GLOMERULAR FILTRATION RATE (test code = GFR) mL/min >=60 CREATININE (test code = CREAT) mg/dL 0.55-1.02 BUN/CREATININE RATIO (test code = BUN/CREA) 10-20 TOTAL PROTEIN (test code = PROT) gram/dL 6.4-8.2 ALBUMIN (test code = ALB) g/dL 3.4-5.0 GLOBULIN (test code = GLOB) gram/dL 2.7-4.2 ALBUMIN/GLOBULIN RATIO (test code = A/G) 0.75-1.50 CALCIUM (test code = CA) mg/dL 8.5-10.1 BILIRUBIN TOTAL (test code = BILT) mg/dL 0.0-1.0 SGOT/AST (test code = AST) IUnit/L 15-37 SGPT/ALT (test code = ALT) IUnit/L 12-78 ALKALINE PHOSPHATASE TOTAL (test code = ALKP) IUnit/L 45-117 [id number] 19:38:00* Test Item Value Reference Range Interpretation Comments PHOSPHORUS (test code = PHOS) mg/dL 2.5-4.9 [id number] 19:38:00* Test Item Value Reference Range Interpretation Comments MAGNESIUM (test code = MAG) mg/dL 1.8-2.4 THYROID STIMULATING [id number] 19:38:00* Test Item Value Reference Range Interpretation Comments THYROID STIMULATING HORMONE (test code = TSH) uIU/mL 0.36-3.7 4 [id number] 19:32:00* Test Item Value Reference Range Interpretation Comments GLYCOSYLATED HEMOGLOBIN (HA1C) (test code = GLYHGB) 5.4 % HbA1 SUGGESTED DIAGNOSIS: HbA1C (%) Diabetic >6.4Prediabetes 5.7 - 6.4Normal <5.7 ESTIMATED AVERAGE GLUCOSE (test code = EAG) 108 MG/DL - CT L-SPINE W/O [id number] 19:27:00 Name: AMAURY CONTE [facility] : 1945 Age/S: 74 / F [address] [facility] Unit #: [id number] Loc: [place] [address] Phys: Zaira Woodard MD Acct: [id number] Dis Date: Status: ADM IN PHONE #: [phone] Exam Date: 01/05/2020 185 FAX #: [phone] Reason: Weakness B/L LE EXAMS: CPT CODE: [id number] CT L-SPINE W/O CONTRAST 28839 HISTORY: Bilateral lower extremity weakness. COMPARISON: None available. Location: TH. CT lumbar spine without contrast: Automated exposure control. No acute fracture. Anatomic alignment. Vertebral body heights are maintained. No spondylolysis. No spondylolisthesis. Disc space loss with vacuum phenomenon from L2-L3 through L4-L5 level. Anterolateral marginal osteophytes. Levoscoliosis. SI joints are preserved. No prevertebral soft tissue swelling. Fatty atrophy of the back musculature. At L3-L4 level 5.2 mm right lateral disc osteophyte complex and moderate facet hypertrophy. No canal stenosis. Severe right forami nal stenosis. Correlate for radicular symptoms for right L3 nerve root. At L4-L5 level posterior central and bilateral lateral disc osteoph yte complex measured 9 mm. Mild canal stenosis. Severe facet arthr opathy. Severe bilateral foraminal stenosis. Laminectomy on the right si de. Correlate for radicular symptoms for bilateral L4 nerve roots. At L5-S1 level 7 mm central and bilateral lateral disc extrusion r esulting in bilateral foraminal stenosis in combination with facet hypertr ophy. No canal stenosis. Correlate for radicular symptoms for bilateral L5 nerve roots. IMPRESSION: No spondylolysis o r spondylolisthesis. Vertebral body heights are maintained. Multilevel loss of disc space. Anterolateral marginal osteophytes. Multilevel sp ondylosis as described above. at 1927 Reported and signed by: Reynold Castrejon M.D. PAGE 1 Signed Report (CONTINUED) Name: AMAURY CONTE [facility] : 1945 Age/S: 74 / F [address] [facility] Unit #: [id number] Loc: [place] [address] Phys: Zaira Woodard MD Acct : [id number] Dis Date: Status: ADM IN PHONE #: [phone] Exam Date: 01/05/2020 1856 FAX #: [phone] Reason: Weakness B/L LE EXAMS: CPT CODE: [id number] L-SPINE W/O CONTRAST 51249 <Continued> CC: Zaira Woodard MD Technologist:DIEGO TRAN CT; CTDI: DLP: Trnscb Date/Time: 01/05/2020 (1926) t.SDR.TH4 Or ig Print D/T: S: 01/05/2020 (1929) PAGE 2 Signed Rep ort - CT C-SPINE W/O [id number] 19:16:00 Name: AMAURY CONTE [facility] : 1945 Age/S: 74 / F [address] [facility] Unit #: [id number] Loc: [place] [address] Phys: Reina Woodard MD Acct: [id number] Di s Date: Status: ADM IN PHONE #: [phone] Exam Date: 01/05/20201851 FAX #: Reason: Parasthesias B/L UE EXAMS: CPT CODE: [id number] CT C-SPINE W/ O CONTRAST 83126 HISTORY: Generalized weak ness and paresthesia. COMPARISON: None available. Lo cation: TH. CT cervical spine without contrast: Automated exposure control. No acute fracture of the cervical spine. No prevertebra l soft tissue swelling is noted. Minimal scattered posterior marginal dis c osteophyte complex throughout the cervical spine. At C5-C6 level posterior central and bilateral lateral disc osteophyte complex demetrius suring up to 3.4 mm. Mild effacement of thecal sac. Mild facet hypertrop hy with moderate foraminal stenosis. Correlate for radicular symptoms for C6 nerve roots bilaterally. At C6-C7 level left paracentral disc protrusion measuring 3.3 mm. Mild effacement of thecal sac. No canal ld nosis. Mild left foraminal stenosis. Correlate with radicular symptoms. At C7-T1 level no disc herniation, canal or foraminal stenosis. Anatomic alignment. Vertebral body heights are maintained. Narrowe d disc space at C5-C6 level. Uncovertebral joints are narrowed. IMPRESSION: No acute fracture. Anatomic alignment. DJ D. Multilevel spondylosis. At C5-C6 level posterior central a nd bilateral lateral disc osteophyte complex measuring up to 3.4 mm. Mi ld effacement of thecal sac. Mild facet hypertrophy with moderate pavel inal stenosis. Correlate for radicular symptoms for C6 nerve roots bila terally. At C6-C7 level left paracentral disc protrusion measu ring 3.3 mm. Mild effacement of thecal sac. No canal stenosis. Mild l eft foraminal stenosis. Correlate with radicular symptoms. at 191 Reported and signed by: Reynold Castrejon M.D. PAGE 1 Signed Report (CONTINUED) Name: GENO CONTE [facility] : 1945 Age/ S: 74 / F [address] [facility] Unit #: [id number] Loc: [place] [address] Phys: Zaira Woodard MD Acct: [id number] Dis Date: Status: ADM IN PHONE #: [phone] E xam Date: 01/05/20201851 FAX #: [phone] Reason: Parasthesias B/L UE EXAMS: CPT CODE: [id number] CT C-SPINE W/O CONTRAST 03154 <Continued> CC: Zaira Woodard MD Technologist:DIEGO TRAN CT; May CTDI: DLP: Trnscb Date/Time: 01/05/2020 (1915) t.SDR.TH4 Orig Print D/T: S: 01/05/2020 (1919) PAGE 2 Signed Report PROTHROMBIN [id number] 19:07:00* Test Item Value Reference Range Interpretation Comments PROTHROMBIN TIME PATIENT (test code = PTP) 16.8 seconds 9.0-14.0 H INTERNATIONAL NORMAL RATIO (test code = INR) 1.4 0.8-1.2 H The therapeutic range for oral anticoagulant therapy formost indications is an international normalized ratio (INR)of between 2.0 and 3.0. The recommended therapeutic INRrange for various clinical situations is listed below: Clinical Situation INR range Pulmonary e mbolism treatment (2.0-3.0)Venous thrombosis treatmentVenous thrombosis prophylaxis (high risk surgery)Prevention of systemic embolism from: Acute myocardial infarction Valvular heart disease Atrial fibrillation Mechanical prosthetic heart valves (2.5-3.5) IS PATIENT ON ANTICOAGULANTS? YLIST ANTICOAGULANTS eliquisCBC W/AUTO DIFF 2020-01-05 19:04:00* Test Item Value Reference Range Interpretation Comments WHITE BLOOD CELL (test code = WBC) 4.7 K/mm3 4.5-12.5 N RED BLOOD CELL (test code = RBC) 3.81 mill/mm3 3.7-5.2 N HEMOGLOBIN (test code = HGB) 12.7 gram/dL 11.5-15.5 N HEMATOCRIT (test code = HCT) 39.7 % 36.0-46.0 N MEAN CELL VOLUME (test code = MCV) 103.7 fL 80-98 H MEAN CELL HGB (test code = MCH) 33.3 picogram 27.0-33.0 H MEAN CELL HGB CONCETRATION (test code = MCHC) 32.2 gram/dL 33.0-36. 0 L RED CELL DISTRIBUTION WIDTH (test code = RDW) 15.0 % 11.6-16. 2 N RED CELL DISTRIBUTION WIDTH SD (test code = RDW-SD) 57.2 fL 37 .0-51.0 H PLATELET COUNT (test code = PLT) 142 K/mm3 150-450 L MEAN PLATELET VOLUME (test code = MPV) 11.6 fL 6.7-11.0 H NEUTROPHIL % (test code = NT%) 48.6 % 39.0-69.0 N IMMATURE GRANULOCYTE % (test code = IG%) 0.2 % 0.0-5.0 N LYMPHOCYTE % (test code = LY%) 32.7 % 25.0-55.0 N MONOCYTE % (test code = MO%) 13.1 % 0.0-10.0 H EOSINOPHIL % (test code = EO%) 4.1 % 0.0-5.0 N BASOPHIL % (test code = BA%) 1.3 % 0.0-1.0 H NUCLEATED RBC % (test code = NRBC%) 0.0 % 0-0 N NEUTROPHIL # (test code = NT#) 2.26 K/mm3 1.8-7.7 N IMMATURE GRANULOCYTE # (test code = IG#) 0.01 x10 3/uL 0-0.03 N LYMPHOCYTE # (test code = LY#) 1.52 K/mm3 1.0-5.0 N MONOCYTE # (test code = MO#) 0.61 K/mm3 0-0.8 N EOSINOPHIL # (test code = EO#) 0.19 K/mm3 0.0-0.5 N BASOPHIL # (test code = BA#) 0.06 K/mm3 0.0-0.2 N NUCLEATED RBC # (test code = NRBC#) 0.00 K/mm3 0.0-0.1 N MANUAL DIFF REQUIRED (test code = MDIFF) NO CBC W/AUTO [id number] 18:55:00* Test Item Value Reference Range Interpretation Comments WHITE BLOOD CELL (test code = WBC) K/mm3 4.5-12.5 RED BLOOD CELL (test code = RBC) mill/mm3 3.7-5.2 HEMOGLOBIN (test code = HGB) 12.7 gram/dL 11.5-15.5 N HEMATOCRIT (test code = HCT) 39.7 % 36.0-46.0 N MEAN CELL VOLUME (test code = MCV) fL 80-98 MEAN CELL HGB (test code = MCH) picogram 27.0-33.0 MEAN CELL HGB CONCETRATION (test code = MCHC) gram/dL 33.0-36. 0 RED CELL DISTRIBUTION WIDTH (test code = RDW) % 11.6-16. 2 RED CELL DISTRIBUTION WIDTH SD (test code = RDW-SD) fL 37 .0-51.0 PLATELET COUNT (test code = PLT) K/mm3 150-450 MEAN PLATELET VOLUME (test code = MPV) fL 6.7-11.0 NEUTROPHIL % (test code = NT%) % 39.0-69.0 IMMATURE GRANULOCYTE % (test code = IG%) % 0.0-5.0 LYMPHOCYTE % (test code = LY%) % 25.0-55.0 MONOCYTE % (test code = MO%) % 0.0-10.0 EOSINOPHIL % (test code = EO%) % 0.0-5.0 BASOPHIL % (test code = BA%) % 0.0-1.0 NEUTROPHIL # (test code = NT#) K/mm3 1.8-7.7 LYMPHOCYTE # (test code = LY#) K/mm3 1.0-5.0 MONOCYTE # (test code = MO#) K/mm3 0-0.8 EOSINOPHIL # (test code = EO#) K/mm3 0.0-0.5 BASOPHIL # (test code = BA#) K/mm3 0.0-0.2 [id number] 16:43:00* Test Item Value Reference Range Interpretation Comments GLUBED (test code = GLUBED) 78 mg/dL 74-106 N Performed by certified brim welt sewing machine operator at [facility] Bedside [id number] 20:20:00* Test Item Value Reference Range Interpretation Comments Bedside Glucose (test code = 71803-6) 131 70-120 H Meter ID: [id number] Regional HospitalBedside Glucose 2018-11-11 20:20:00* Test Item Value Reference Range Interpretation Comments Bedside Glucose (test code = 84865-3) 131 70-120 H Meter ID: [id number] Regional HospitalCreatine Kinase MB 2018-11-11 04:05:00* Test Item Value Reference Range Interpretation Comments Creatine Kinase MB (test code = 32354-0) 0.80 0-5.0 [facility] HospitalTrm[facility]ern [id number] 04:05:00* Test Item Value Reference Range Interpretation Comments Troponin I (test code = OBU2810) 0.005 0-0.300 [facility] HospitalCreatine Kinase [id number] 04:05:00* Test Item Value Reference Range Interpretation Comments Creatine Kinase MB (test code = 09624-8) 0.80 0-5.0 [facility] HospitalTroponin [id number] 04:05:00* Test Item Value Reference Range Interpretation Comments Troponin I (test code = MBK0604) 0.005 0-0.300 [facility] HospitalB-Type Natriuretic Kjjuujs8536-15-72 03:56:00* Test Item Value Reference Range Interpretation Comments B-Type Natriuretic Peptide (test code = 27877-3) 210.1 0-100 H [facility] HospitalCreatine [id number] 03:56:00* Test Item Value Reference Range Interpretation Comments Creatine Kinase (test code = 2157-6) 37 29-168 [facility] Hospital[facility] Natriuretic Qjzoihr3262-73-95 03:56:00* Test Item Value Reference Range Interpretation Comments B-Type Natriuretic Peptide (test code = 04846-7) 210.1 0-100 H [facility] HospitalCreatine Hhavlk6683-59-34 03:56:00* Test Item Value Reference Range Interpretation Comments Creatine Kinase (test code = 2157-6) 37 29-168 [facility]wood[facility] Gtkxh7631-90-32 03:46:00* Test Item Value Reference Range Interpretation Comments Sodium Level (test code = 2951-2) 144 136-145 [facility] HospitalPotassium Aayiv6801-50-18 03:46:00* Test Item Value Reference Range Interpretation Comments Potassium Level (test code = 2823-3) 4.2 3.5-5.1 [facility] HospitalChloride [id number] 03:46:00* Test Item Value Reference Range Interpretation Comments Chloride Level (test code = 2075-0) 115 98-107 H [facility] HospitalCarbon Dioxide Gdshu0425-98-48 03:46:00* Test Item Value Reference Range Interpretation Comments Carbon Dioxide Level (test code = 2028-9) 22 22-29 [facility] HospitalAnion [id number] 03:46:00* Test Item Value Reference Range Interpretation Comments Anion Gap (test code = 11462-2) 11.2 8-16 [facility] HospitalBlood Urea Cejcfhnt7672-72-70 03:46:00* Test Item Value Reference Range Interpretation Comments Blood Urea Nitrogen (test code = 3094-0) 20 7-26 [facility] HospitalCreatinine2019-01-25 03:46:00* Test Item Value Reference Range Interpretation Comments Creatinine (test code = 2160-0) 1.00 0.57-1.11 [facility] HospitalBUN/Creatinine Hbabn1532-95-87 03:46:00* Test Item Value Reference Range Interpretation Comments BUN/Creatinine Ratio (test code = 3097-3) 20 6-25 [facility] HospitalEstimat Glomerular Filtration Rate 2018-11-11 03:46:00* Test Item Value Reference Range Interpretation Comments Estimat Glomerular Filtration Rate (test code = 787373482) 54 >60 L Ranges were taken from the National Kidney Disease Education Program and the [facility] Foundation literature.Reference ranges:60 or greater: Zewknz92-94 ( for 3 consecutive months): Chronic kidney disease 15 or less: Kidney failureParkview Regional HospitalGlucose Uidhd3167-73-20 03:46:00* Test Item Value Reference Range Interpretation Comments Glucose Level (test code = AGL6774) 89 74-118 [facility] HospitalCalcium Mkwxt0942-88-83 03:46:00* Test Item Value Reference Range Interpretation Comments Calcium Level (test code = 86967-8) 9.0 8.4-10.2 [facility] HospitalTotal Emdddmfyp4432-34-44 03:46:00* Test Item Value Reference Range Interpretation Comments Total Bilirubin (test code = 1975-2) 0.9 0.2-1.2 [facility] HospitalAspartate Amino Transf (AST/SGOT) 2018-11-11 03:46:00* Test Item Value Reference Range Interpretation Comments Aspartate Amino Transf (AST/SGOT) (test code = Aspartate Amino Transf (AST/SGOT)) 34 5-34 [facility] HospitalAlanine Aminotransferase (ALT/SGPT) 2018-11-11 03:46:00* Test Item Value Reference Range Interpretation Comments Alanine Aminotransferase (ALT/SGPT) (test code = 1742-6) 18 0-55 [facility] HospitalTotal Pzrhqzj6370-81-81 03:46:00* Test Item Value Reference Range Interpretation Comments Total Protein (test code = 2885-2) 6.1 6.5-8.1 L [facility] HospitalAlbumin2019-01-25 03:46:00* Test Item Value Reference Range Interpretation Comments Albumin (test code = 1751-7) 2.9 3.5-5.0 L [facility] HospitalGlobulin2019-01-25 03:46:00* Test Item Value Reference Range Interpretation Comments Globulin (test code = 79932-6) 3.2 2.3-3.5 [facility] HospitalAlbumin/Globulin Ynebj7655-25-60 03:46:00 * Test Item Value Reference Range Interpretation Comments Albumin/Globulin Ratio (test code = 1759-0) 0.9 0.8-2.0 [facility] HospitalAlkaline Xncdyhvrjye2378-81-82 03:46:00* Test Item Value Reference Range Interpretation Comments Alkaline Phosphatase (test code = 6768-6) 87 40-150 [facility] HospitalTriglycerides Swufx2019-82-86 03:46:00* Test Item Value Reference Range Interpretation Comments Triglycerides Level (test code = 2571-8) 86 0-149 [facility] HospitalCholesterol Yrolw2737-03-08 03:46:00* Test Item Value Reference Range Interpretation Comments Cholesterol Level (test code = 2093-3) 109 0-199 Less than 200 mg/dL Low Rysf157 - 239 mg/dL Borderline Jtcf585 m g/dl and greater High Risk [facility] HospitalLDL Ujvnfbylxgi4896-25-22 03:46:00* Test Item Value Reference Range Interpretation Comments LDL Cholesterol (test code = 2089-1) 55 60-130 L [facility] HospitalHDL Dofdhjmwkcb6582-90-40 03:46:00* Test Item Value Reference Range Interpretation Comments HDL Cholesterol (test code = 2085-9) 37 40-60 L [facility]HDL Aenij7130-82-94 03:46:00 * Test Item Value Reference Range Interpretation Comments Cholesterol/HDL Ratio (test code = 9830-1) 2.9 3.0-3.6 [facility] Oefhf4422-62-88 03:46:00* Test Item Value Reference Range Interpretation Comments Sodium Level (test code = 2951-2) 144 136-145 [facility] Wlmkh2547-91-24 03:46:00* Test Item Value Reference Range Interpretation Comments Potassium Level (test code = 2823-3) 4.2 3.5-5.1 [facility] Yqgue0547-54-88 03:46:00* Test Item Value Reference Range Interpretation Comments Chloride Level (test code = 2075-0) 115 98-107 H [facility]Car[facility] Dioxide Lbpfr9809-54-51 03:46:00* Test Item Value Reference Range Interpretation Comments Carbon Dioxide Level (test code = 2028-9) 22 - [facility] HospitalAnion Evc0151-16-55 03:46:00* Test Item Value Reference Range Interpretation Comments Anion Gap (test code = 60371-9) 11.2 8-16 [facility] Urea Tnmdiwgn8154-34-55 03:46:00* Test Item Value Reference Range Interpretation Comments Blood Urea Nitrogen (test code = 3094-0) 20 05-12 [facility]Creatinine2019-01-25 03:46:00* Test Item Value Reference Range Interpretation Comments Creatinine (test code = 2160-0) 1.00 0.57-1.11 [facility]Creatinine Ipiml9781-29-48 03:46:00* Test Item Value Reference Range Interpretation Comments BUN/Creatinine Ratio (test code = 3097-3) 04-11 [facility] HospitalEstimat Glomerular Filtration Rate 2018-11-11 03:46:00* Test Item Value Reference Range Interpretation Comments Estimat Glomerular Filtration Rate (test code = 009852600) 54 >60 L Ranges were taken from the National Kidney Disease Education Program and the [facility] literature.Reference ranges:60 or greater: Ztabal06-07 ( for 3 consecutive months): Chronic kidney disease 15 or less: Kidney failurePark[facility] HospitalGlucose Xkofi9926-97-44 03:46:00* Test Item Value Reference Range Interpretation Comments Glucose Level (test code = MMR1688) 89 74-118 [facility] HospitalCalcium Dilka5069-81-88 03:46:00* Test Item Value Reference Range Interpretation Comments Calcium Level (test code = 83377-6) 9.0 8.4-10.2 [facility] HospitalTotal Azlvogsck4674-54-76 03:46:00* Test Item Value Reference Range Interpretation Comments Total Bilirubin (test code = 1975-2) 0.9 0.2-1.2 [facility] HospitalAspartate Amino Transf (AST/SGOT) 2018-11-11 03:46:00* Test Item Value Reference Range Interpretation Comments Aspartate Amino Transf (AST/SGOT) (test code = Aspartate Amino Transf (AST/SGOT)) 34 5-34 [facility] HospitalAlanine Aminotransferase (ALT/SGPT) 2018-11-11 03:46:00* Test Item Value Reference Range Interpretation Comments Alanine Aminotransferase (ALT/SGPT) (test code = 1742-6) 18 0-55 [facility] HospitalTotal Ynbxqoq7237-51-05 03:46:00* Test Item Value Reference Range Interpretation Comments Total Protein (test code = 2885-2) 6.1 6.5-8.1 L [facility] HospitalAlbumin2019-01-25 03:46:00* Test Item Value Reference Range Interpretation Comments Albumin (test code = 1751-7) 2.9 3.5-5.0 L [facility] HospitalGlobulin2019-01-25 03:46:00* Test Item Value Reference Range Interpretation Comments Globulin (test code = 29519-7) 3.2 2.3-3.5 [facility] HospitalAlbumin/Globulin Xdtfd1446-18-94 03:46:00 * Test Item Value Reference Range Interpretation Comments Albumin/Globulin Ratio (test code = 1759-0) 0.9 0.8-2.0 [facility] HospitalAlkaline Qvywznherow3384-05-49 03:46:00* Test Item Value Reference Range Interpretation Comments Alkaline Phosphatase (test code = 6768-6) 87 40-150 [facility] HospitalTriglycerides Rpmaz7002-69-95 03:46:00* Test Item Value Reference Range Interpretation Comments Triglycerides Level (test code = 2571-8) 86 0-149 [facility] HospitalCholesterol Izjws5596-82-08 03:46:00* Test Item Value Reference Range Interpretation Comments Cholesterol Level (test code = 2093-3) 109 0-199 Less than 200 mg/dL Low Bcdg367 - 239 mg/dL Borderline Kcuf662 m g/dl and greater High Risk [facility] HospitalLDL Eovorjfsiqi8805-57-93 03:46:00* Test Item Value Reference Range Interpretation Comments LDL Cholesterol (test code = 2089-1) 55 60-130 L [facility] HospitalHDL Qgixjakqiem0638-71-51 03:46:00* Test Item Value Reference Range Interpretation Comments HDL Cholesterol (test code = 2085-9) 37 40-60 L [facility] HospitalCholesterol/HDL Vqdav5074-62-62 03:46:00 * Test Item Value Reference Range Interpretation Comments Cholesterol/HDL Ratio (test code = 9830-1) 2.9 3.0-3.6 L [facility] HospitalHemoglobin A1c Borbbju9271-58-88 03:36:00 * Test Item Value Reference Range Interpretation Comments Hemoglobin A1c Percent (test code = Hemoglobin A1c Percent) 5.9 4.0-7.0 [facility] HospitalMagnesium Mtblg2975-18-40 03:36:00* Test Item Value Reference Range Interpretation Comments Magnesium Level (test code = 88215-6) 2.1 1.3-2.1 [facility] HospitalHemoglobin A1c Bacqjlo3083-77-74 03:36:00 * Test Item Value Reference Range Interpretation Comments Hemoglobin A1c Percent (test code = Hemoglobin A1c Percent) 5.9 4.0-7.0 [facility] HospitalMagnesium Rdltm6853-04-88 03:36:00* Test Item Value Reference Range Interpretation Comments Magnesium Level (test code = 40086-0) 2.1 1.3-2.1 [facility] HospitalWhite Blood Nerpn0714-24-26 03:33:00* Test Item Value Reference Range Interpretation Comments White Blood Count (test code = 6690-2) 4.36 4.8-10.8 L [facility] HospitalRed Blood Egfgc9341-62-48 03:33:00* Test Item Value Reference Range Interpretation Comments Red Blood Count (test code = 789-8) 3.85 3.6-5.1 [facility] HospitalHemoglobin2019-01-25 03:33:00* Test Item Value Reference Range Interpretation Comments Hemoglobin (test code = 22335-5) 12.7 12.0-16.0 [facility] HospitalHematocrit2019-01-25 03:33:00* Test Item Value Reference Range Interpretation Comments Hematocrit (test code = 4544-3) 40.3 34.2-44.1 [facility] HospitalMean Corpuscular Qpzret9396-86-60 03:33:00* Test Item Value Reference Range Interpretation Comments Mean Corpuscular Volume (test code = 787-2) 104.7 81-99 H [facility] HospitalMean Corpuscular Vkawkhbqyt1183-54-24 03:33:00* Test Item Value Reference Range Interpretation Comments Mean Corpuscular Hemoglobin (test code = 785-6) 33.0 28-32 H [facility] HospitalMean Corpuscular Hemoglobin Concent 2018-11-11 03:33:00* Test Item Value Reference Range Interpretation Comments Mean Corpuscular Hemoglobin Concent (test code = 786-4) 31.5 31-35 [facility] HospitalRed Cell Distribution Mzfxp6472-63-22 03:33:00* Test Item Value Reference Range Interpretation Comments Red Cell Distribution Width (test code = 06715-8) 13.8 11.7 -14.4 [facility] HospitalPlatelet Fkfut0160-92-37 03:33:00* Test Item Value Reference Range Interpretation Comments Platelet Count (test code = 777-3) 117 140-360 L [facility] HospitalNeutrophils (%) (Auto)2018-11-11 03:33:00 * Test Item Value Reference Range Interpretation Comments Neutrophils (%) (Auto) (test code = 52417-3) 56.1 38.7-80.0 [facility] HospitalLymphocytes (%) (Auto)2018-11-11 03:33:00 * Test Item Value Reference Range Interpretation Comments Lymphocytes (%) (Auto) (test code = 736-9) 25.2 18.0-39.1 [facility] HospitalMonocytes (%) (Auto)2018-11-11 03:33:00* Test Item Value Reference Range Interpretation Comments Monocytes (%) (Auto) (test code = 5905-5) 12.8 4.4-11.3 H [facility] HospitalEosinophils (%) (Auto)2018-11-11 03:33:00 * Test Item Value Reference Range Interpretation Comments Eosinophils (%) (Auto) (test code = 713-8) 4.8 0.0-6.0 [facility] HospitalBasophils (%) (Auto)2018-11-11 03:33:00* Test Item Value Reference Range Interpretation Comments Basophils (%) (Auto) (test code = 706-2) 0.9 0.0-1.0 [facility] HospitalIM GRANULOCYTES %2018-11-11 03:33:00* Test Item Value Reference Range Interpretation Comments IM GRANULOCYTES % (test code = IM GRANULOCYTES %) 0.2 0.0- 1.0 [facility] HospitalNeutrophils # (Auto)2018-11-11 03:33:00* Test Item Value Reference Range Interpretation Comments Neutrophils # (Auto) (test code = 751-8) 2.4 2.1-6.9 [facility] HospitalLymphocytes # (Auto)2018-11-11 03:33:00* Test Item Value Reference Range Interpretation Comments Lymphocytes # (Auto) (test code = 89039-7) 1.1 1.0-3.2 [facility] HospitalMonocytes # (Auto)2018-11-11 03:33:00* Test Item Value Reference Range Interpretation Comments Monocytes # (Auto) (test code = 742-7) 0.6 0.2-0.8 [facility] HospitalEosinophils # (Auto)2018-11-11 03:33:00* Test Item Value Reference Range Interpretation Comments Eosinophils # (Auto) (test code = 711-2) 0.2 0.0-0.4 [facility] HospitalBasophils # (Auto)2018-11-11 03:33:00* Test Item Value Reference Range Interpretation Comments Basophils # (Auto) (test code = 704-7) 0.0 0.0-0.1 [facility] HospitalAbsolute Immature Granulocyte (auto 2018-11-11 03:33:00* Test Item Value Reference Range Interpretation Comments Absolute Immature Granulocyte (auto (lyssa t code = Absolute Immature Granulocyte (auto) 0.01 0-0.1 [facility] HospitalWhite Blood Rvshc5705-15-86 03:33:00* Test Item Value Reference Range Interpretation Comments White Blood Count (test code = 6690-2) 4.36 4.8-10.8 L [facility] HospitalRed Blood Kverc1483-55-21 03:33:00* Test Item Value Reference Range Interpretation Comments Red Blood Count (test code = 789-8) 3.85 3.6-5.1 [facility] HospitalHemoglobin2019-01-25 03:33:00* Test Item Value Reference Range Interpretation Comments Hemoglobin (test code = 68244-2) 12.7 12.0-16.0 [facility] HospitalHematocrit2019-01-25 03:33:00* Test Item Value Reference Range Interpretation Comments Hematocrit (test code = 4544-3) 40.3 34.2-44.1 [facility] HospitalMean Corpuscular Kqxhtv4044-15-50 03:33:00* Test Item Value Reference Range Interpretation Comments Mean Corpuscular Volume (test code = 787-2) 104.7 81-99 H [facility] HospitalMean Corpuscular Sdhhamuris8900-57-55 03:33:00* Test Item Value Reference Range Interpretation Comments Mean Corpuscular Hemoglobin (test code = 785-6) 33.0 28-32 H [facility] HospitalMean Corpuscular Hemoglobin Concent 2018-11-11 03:33:00* Test Item Value Reference Range Interpretation Comments Mean Corpuscular Hemoglobin Concent (test code = 786-4) 31.5 31-35 [facility] HospitalRed Cell Distribution Uzfmb7713-41-63 03:33:00* Test Item Value Reference Range Interpretation Comments Red Cell Distribution Width (test code = 57890-7) 13.8 11.7 -14.4 [facility] HospitalPlatelet Gkxxq0194-28-57 03:33:00* Test Item Value Reference Range Interpretation Comments Platelet Count (test code = 777-3) 117 140-360 L [facility] HospitalNeutrophils (%) (Auto)2018-11-11 03:33:00 * Test Item Value Reference Range Interpretation Comments Neutrophils (%) (Auto) (test code = 95577-8) 56.1 38.7-80.0 [facility] HospitalLymphocytes (%) (Auto)2018-11-11 03:33:00 * Test Item Value Reference Range Interpretation Comments Lymphocytes (%) (Auto) (test code = 736-9) 25.2 18.0-39.1 [facility] HospitalMonocytes (%) (Auto)2018-11-11 03:33:00* Test Item Value Reference Range Interpretation Comments Monocytes (%) (Auto) (test code = 5905-5) 12.8 4.4-11.3 H [facility] HospitalEosinophils (%) (Auto)2018-11-11 03:33:00 * Test Item Value Reference Range Interpretation Comments Eosinophils (%) (Auto) (test code = 713-8) 4.8 0.0-6.0 [facility] HospitalBasophils (%) (Auto)2018-11-11 03:33:00* Test Item Value Reference Range Interpretation Comments Basophils (%) (Auto) (test code = 706-2) 0.9 0.0-1.0 [facility] HospitalIM GRANULOCYTES %2018-11-11 03:33:00* Test Item Value Reference Range Interpretation Comments IM GRANULOCYTES % (test code = IM GRANULOCYTES %) 0.2 0.0- 1.0 [facility] HospitalNeutrophils # (Auto)2018-11-11 03:33:00* Test Item Value Reference Range Interpretation Comments Neutrophils # (Auto) (test code = 751-8) 2.4 2.1-6.9 [facility] HospitalLymphocytes # (Auto)2018-11-11 03:33:00* Test Item Value Reference Range Interpretation Comments Lymphocytes # (Auto) (test code = 26403-8) 1.1 1.0-3.2 [facility] HospitalMonocytes # (Auto)2018-11-11 03:33:00* Test Item Value Reference Range Interpretation Comments Monocytes # (Auto) (test code = 742-7) 0.6 0.2-0.8 [facility] HospitalEosinophils # (Auto)2018-11-11 03:33:00* Test Item Value Reference Range Interpretation Comments Eosinophils # (Auto) (test code = 711-2) 0.2 0.0-0.4 [facility] HospitalBasophils # (Auto)2018-11-11 03:33:00* Test Item Value Reference Range Interpretation Comments Basophils # (Auto) (test code = 704-7) 0.0 0.0-0.1 [facility] HospitalAbsolute Immature Granulocyte (auto 2018-11-11 03:33:00* Test Item Value Reference Range Interpretation Comments Absolute Immature Granulocyte (auto (lyssa t code = Absolute Immature Granulocyte (auto) 0.01 0-0.1 [facility] HospitalUrine LQB9900-89-05 10:51:00* Test Item Value Reference Range Interpretation Comments Urine WBC (test code = 5821-4) 0-5 0-5 [facility] HospitalUrine OBO9755-68-49 10:51:00* Test Item Value Reference Range Interpretation Comments Urine RBC (test code = 97760-5) NONE 0-5 [facility] HospitalUrine Eglwiqlo3206-25-29 10:51:00* Test Item Value Reference Range Interpretation Comments Urine Bacteria (test code = 37641-9) RARE NONE [facility] HospitalUrine Epithelial Kntft8269-09-48 10:51:00 * Test Item Value Reference Range Interpretation Comments Urine Epithelial Cells (test code = 79919-1) FEW NONE [facility] HospitalUrine WJJ2347-76-20 10:51:00* Test Item Value Reference Range Interpretation Comments Urine WBC (test code = 5821-4) 0-5 0-5 [facility] HospitalUrine CKN0820-00-69 10:51:00* Test Item Value Reference Range Interpretation Comments Urine RBC (test code = 56143-5) NONE 0-5 [facility] HospitalUrine Aqvqrxpy3784-11-77 10:51:00* Test Item Value Reference Range Interpretation Comments Urine Bacteria (test code = 06087-7) RARE NONE [facility] HospitalUrine Epithelial Kzbdq2973-32-57 10:51:00 * Test Item Value Reference Range Interpretation Comments Urine Epithelial Cells (test code = 48628-9) FEW NONE [facility] HospitalUrine Bxegq6187-90-99 10:38:00* Test Item Value Reference Range Interpretation Comments Urine Color (test code = 5778-6) YELLOW YELLOW [facility] HospitalUrine Pfbvreu7647-83-22 10:38:00* Test Item Value Reference Range Interpretation Comments Urine Clarity (test code = 04574-7) CLEAR CLEAR [facility] HospitalUrine Specific Jxitsbc6176-23-34 10:38:00 * Test Item Value Reference Range Interpretation Comments Urine Specific [place] (test code = 5811-5) 1.020 1.010-1.02 5 [facility] HospitalUrine jJ3051-83-07 10:38:00* Test Item Value Reference Range Interpretation Comments Urine pH (test code = 16966-0) 6 5-7 [facility] HospitalUrine Leukocyte Uzmkaegs3066-27-25 10:38:00* Test Item Value Reference Range Interpretation Comments Urine Leukocyte Esterase (test code = 5799-2) NEGATIVE NEGATIVE [facility] HospitalUrine Xqzevvn1829-60-74 10:38:00* Test Item Value Reference Range Interpretation Comments Urine Nitrite (test code = 98831-0) NEGATIVE NEGATIVE [facility] HospitalUrine Myepaer3952-89-22 10:38:00* Test Item Value Reference Range Interpretation Comments Urine Protein (test code = 5804-0) NEGATIVE NEGATIVE [facility] HospitalUrine Glucose (UA)2018-11-10 10:38:00* Test Item Value Reference Range Interpretation Comments Urine Glucose (UA) (test code = 2349-9) NEGATIVE NEGATIVE [facility] HospitalUrine Aevbujy5394-87-34 10:38:00* Test Item Value Reference Range Interpretation Comments Urine Ketones (test code = 45007-1) NEGATIVE NEGATIVE [facility] HospitalU[facility] Ngbesolgufnu5606-68-09 10:38:00* Test Item Value Reference Range Interpretation Comments Urine Urobilinogen (test code = 25140-7) 0.2 0.2-1 [facility] HospitalUrine Eogdmxsdl4334-59-37 10:38:00* Test Item Value Reference Range Interpretation Comments Urine Bilirubin (test code = 1978-6) NEGATIVE NEGATIVE [facility] HospitalU[facility] Sexbk4644-00-39 10:38:00* Test Item Value Reference Range Interpretation Comments Urine Blood (test code = 34081-3) NEGATIVE NEGATIVE [facility] HospitalU[facility] Qhnwx6867-17-49 10:38:00* Test Item Value Reference Range Interpretation Comments Urine Color (test code = 5778-6) YELLOW YELLOW [facility] HospitalUrine Veduknp9297-62-16 10:38:00* Test Item Value Reference Range Interpretation Comments Urine Clarity (test code = 66654-5) CLEAR CLEAR [facility] HospitalUrine Specific Dlnfkac4097-28-79 10:38:00 * Test Item Value Reference Range Interpretation Comments Urine Specific [place] (test code = 5811-5) 1.020 1.010-1.02 5 [facility] HospitalUrine kI2252-82-10 10:38:00* Test Item Value Reference Range Interpretation Comments Urine pH (test code = 33406-2) 6 5-7 [facility] HospitalU[facility] Leukocyte Vrkkvwso6063-09-78 10:38:00* Test Item Value Reference Range Interpretation Comments Urine Leukocyte Esterase (test code = 5799-2) NEGATIVE NEGATIVE [facility] HospitalUrine Oktnpav9912-81-21 10:38:00* Test Item Value Reference Range Interpretation Comments Urine Nitrite (test code = 51237-9) NEGATIVE NEGATIVE [facility] HospitalU[facility] Ugondgo4473-76-77 10:38:00* Test Item Value Reference Range Interpretation Comments Urine Protein (test code = 5804-0) NEGATIVE NEGATIVE [facility] HospitalUrine Glucose (UA)2018-11-10 10:38:00* Test Item Value Reference Range Interpretation Comments Urine Glucose (UA) (test code = 2349-9) NEGATIVE NEGATIVE [facility] HospitalU[facility] Ottmlpr0758-95-97 10:38:00* Test Item Value Reference Range Interpretation Comments Urine Ketones (test code = 02288-8) NEGATIVE NEGATIVE [facility] HospitalUrine Gvulefpeapcz0436-54-78 10:38:00* Test Item Value Reference Range Interpretation Comments Urine Urobilinogen (test code = 29907-7) 0.2 0.2-1 [facility] HospitalUrine Rljgdxlka6042-31-79 10:38:00* Test Item Value Reference Range Interpretation Comments Urine Bilirubin (test code = 1978-6) NEGATIVE NEGATIVE [facility] HospitalUrine Norha2772-16-54 10:38:00* Test Item Value Reference Range Interpretation Comments Urine Blood (test code = 16504-5) NEGATIVE NEGATIVE [facility] HospitalCT BRAIN PL7055-64-50 09:41:00 [facility] [address] [address] Patient Name: AMAURY CONTE MR #: [id number] : Age/Sex: 73/F Req #: [id number] Adm Physician: Ordered by: NEL BONNER MD Report #: [id number] Location: ER Room/Bed: Procedure: 0124-[address]/CT BRAIN WO Exam Date: 11/10/18 Exam Time: 091 9 REPORT STATUS: Signed EXAMINAT ION: Head CT HISTORY: Dizziness, vertigo, ataxia COMPARISON: None. ROSALIND HNIQUE: Multidetector axial images were obtained without contrast from the for amen magnum to the vertex . The images were reconstructed using brain and bone algorithms. Thin section brain images were reformatted into coronal and sagi ttal planes. Image quality: Motion/streaking artifact limits the evaluation of the skull base and posterior cranial fossa. Dose modulation, iterative stephanie nstruction, and/or weight based adjustment of the mA/kV was utilized to reduce the radiation dose to as low as reasonably achievable. FINDINGS: Parenchyma: 1. Few scattered mildly confluent periventricular and denisha na radiata white matter hypodensities, most likely nonspecific chronic microva scular ischemic changes. 2. No mass or hemorrhage. No CT evidence of acute territorial vascular insult. Extra-axial spaces:No abnormal den sity. No extra-axial fluid collections Brain volume: Normal for age. Ventricles: No hydrocephalus or displacement. Arteries: Prominent calcified atherosclerotic changes of the left vertebral and bilateral carotid arteries. No Hyperdense vessels at this time. Dural sinuses: No abnormal density. Extra-axial spaces: No abnormal density. Foramen magnu m: No mass, Chiari malformation, or basilar invagination. Sella: No obvi ous mass. Paranasal/mastoid sinuses: Imaged portions unremarkable. Skull/Scalp: No lytic or blastic lesions. No fractures. IMPRESSION: 1. No acute intracranial hemorrhage or cortical infarct. 2. 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 Signed by: Dr. Salma Love M.D. on 10/19 9:44 AM Dictated By: SALMA LOVE MD 3 Transcribed By: JUAN on 11/10/18943 [employer] Y TO: NEL BONNER MD Thyroid Stimulating Hormone (TSH)2018-11-10 09:35:00* Test Item Value Reference Range Interpretation Comments Thyroid Stimulating Hormone (TSH) (test code = 18306-2) 1.655 0.350-4.940 [facility] HospitalThyroid Stimulating Hormone (TSH) 2018-11-10 09:35:00* Test Item Value Reference Range Interpretation Comments Thyroid Stimulating Hormone (TSH) (test code = 10194-7) 1.655 0.350-4.940 [facility] SINGLE (PORTABLE)2018-11-10 09:07:00 [facility] [address] [address] Patient Name: AMAURY CONTE MR #: [id number] : 1945 Age/Sex: 73/F Req #: [id number] Adm Physician: Ordered by: NEL BONNER MD Report #: [id number] Location: ER Room/Bed: Procedure: 01200 17 DX/CHEST SINGLE (PORTABLE) Exam Date: 11/10/18 Ex am Time: 0900 REPORT STATUS: Signed Examination: Single AP view of the chest. COMPARISON: None. INDICA TION: Dizziness DISCUSSION: The patient is rotated to the right. Left subclavian approach implantable cardiac device body projects over the lef t paramediastinal region. Lead is difficult to visualize but likely projects o hayden the right ventricle. The lungs are well-inflated and without gross cons olidation, pleural effusion, or pneumothorax. Heart size is at the upper limit s of normal without overt pulmonary edema. No acute osseous abnormality. IMPRESSION: Borderline cardiomegaly without vascular decompensation. Signed by: Dr. Luciana Oswald M.D. on 11/10/2018 9:09 AM Dictated By: LUCIANA OSWALD MD 8 Transcribed By: JUAN on 11/10/18908 COPY TO: NEL BONNER MD Prothrombin Wskk0297-94-60 09:04:00* Test Item Value Reference Range Interpretation Comments Prothrombin Time (test code = 5902-2) 15.1 11.9-14.5 H [facility] HospitalProthromb Time International Ratio 2018-11-10 09:04:00* Test Item Value Reference Range Interpretation Comments Prothromb Time International Ratio (test code = 6301-6) 1.09 Oral Anticoagulant Therapy INR Values:1. Low Intensity Therapy 1.5 - 2.02 . Moderate Intensity Therapy 2.0 - 3.03. High Intensity Therapy(1) 2.5 - 3. 54. High Intensity Therapy(2) 3.0 - 4.05. Panic Value INR > 5.0 [facility] HospitalActivated Partial Thromboplast Time 2018-11-10 09:04:00* Test Item Value Reference Range Interpretation Comments Activated Partial Thromboplast Time (test code = 42401-9) 35.5 23.8-35.5 [facility] HospitalProthrombin Lyho4663-90-52 09:04:00* Test Item Value Reference Range Interpretation Comments Prothrombin Time (test code = 5902-2) 15.1 11.9-14.5 H [facility] HospitalProthromb Time International Ratio 2018-11-10 09:04:00* Test Item Value Reference Range Interpretation Comments Prothromb Time International Ratio (test code = 6301-6) 1.09 Oral Anticoagulant Therapy INR Values:1. Low Intensity Therapy 1.5 - 2.02 . Moderate Intensity Therapy 2.0 - 3.03. High Intensity Therapy(1) 2.5 - 3. 54. High Intensity Therapy(2) 3.0 - 4.05. Panic Value INR > 5.0 [facility] HospitalActivated Partial Thromboplast Time 2018-11-10 09:04:00* Test Item Value Reference Range Interpretation Comments Activated Partial Thromboplast Time (test code = 88337-2) 35.5 23.8-35.5 [facility] HospitalCHEM SJOEY3661-27-31 16:55:0050[facility]CHEM DWJXA2563-17-56 16:55:004.3[facility]annCHEM YOEEF7734-43-88 16:55:97502Fjrarmqk HermannCHEM CADDM1009-43-52 16:55:0025[facility]annCHEM YCVLV3827-04-05 16:55:009.2[facility]annCHEM NITSN3341-94-59 16:55:001.10 [facility]annCHEM MXMXR1947-64-77 16:55:0024[facility]annCHEM PANEL 2016-10-15 16:55:08509Gzqoybhv HermannCHEM EAFGI1324-55-70 16:55:68571Garrlath HermannCHEM PMUYL0128-57-08 16:55:0011.3[facility] WcliqerUPJCMUOIWE6173-36-88 16:55:001.3[facility] MlbrmucYGNGOQBZQI8740-32-19 16:55:003.6[facility] Orting YOYLEKTPYV0882-69-93 16:55:000.6[facility] FodaqzqXVLPUSRCBU7765-36-99 16:55:000.7 [facility] LymaxdsKUGTJMFDST5665-12-61 16:55:000.2[facility]annHEMATOLOGY 2016-10-15 16:55:0062.5[facility] ZdoqqotLIOLQJRQMS8279-15-05 16:55:0022.7[facility] PgnazwvCLBBIXRHEZ1365-13-83 16:55:003.4[facility] KqklfsnVAJZAPQUVQ0800-78-50 16:55:0010.7[facility] AdaivdmSOEJHIKFJJ1418-54-87 16:55:00* Test Item Value Reference Range Interpretation Comments PTT (test code = PTT) 32.6 s 22.9-35.8 [facility] SeqqxuuRTASUMRVJD3692-35-20 16:55:001.26[facility]annHEMATOLOGY 2016-10-15 16:55:00* Test Item Value Reference Range Interpretation Comments PT (test code = PT) 16.1 s 12.0-14.7 [facility] NiyakolQKAIDHFYND8034-23-73 16:55:00* Test Item Value Reference Range Interpretation Comments MCH (test code = MCH) 31.1 pg 27.0-31.0 [facility] CbfcskqUEPINZTKPS5391-73-87 16:55:0095.1[facility]annHEMATOLOGY 2016-10-15 16:55:0032.7[facility] FnnokrtORDWQDMBGL8195-70-83 16:55:0042.7[facility] KdofabyGNDSSZMMNJ9808-96-02 16:55:009.9[facility] SvmxyadDXLDIKYSJD0137-00-47 16:55:23887Sslqyiuo [id number] 16:55:0014.0[facility] [id number] 16:55:004.49[facility] [id number] 16:55:00 5.8[facility] [id number] 16:55:0014.0[facility]
[2020-06-02 15:05] LABS: BILIRUBIN,URINE NEGATIVE (NEGATIVE); CLARITY,URINE HAZY (CLEAR); COLOR,URINE YELLOW (YELLOW); KETONES,URINE NEGATIVE (NEGATIVE); LEUKOCYTE ESTERASE ,URINE NEGATIVE (NEGATIVE); NITRITE,URINE NEGATIVE (NEGATIVE); PROTEIN,URINE DIPSTICK NEGATIVE (NEGATIVE); URINE UROBILINOGEN 0.2 mg/dL (0.2 - 1)
[2020-06-02 15:10] LABS: BACTERIA,URINE FEW /HPF; EPITHELIAL CELLS,URINE FEW /LPF; RBC,URINE 0-5 /HPF (0-5); WBC,URINE (MAN) 0-5 /HPF (0-5)
[2020-06-02] MEDS ORDERED: OCTREOTIDE ACETATE 0.05 MG/ML AMP IV STA (15:14)
[2020-06-02] MEDS ORDERED: SODIUM CHLORIDE 0.9% 250ML 250 ML IV ONE (15:15)
[2020-06-02 15:18] LABS: INR 2.02; PROTHROMBIN TIME 24.2 seconds (11.9-14.5)
[2020-06-02 15:19] LABS: PARTIAL THROMBOPLASTIN TIME 41.1 seconds (23.8-35.5)
--- NOTE | 2020-06-02 15:27 | Diagnostic Imaging Report ---
EXAMINATION: CHEST SINGLE (PORTABLE) INDICATION: Altered mental status. COMPARISON: None FINDINGS: TUBES and LINES: Single lead cardiac pacemaker overlying the left chest wall. LUNGS: Normal lung volumes. Lungs are clear. No consolidations. There is bilateral hilar prominence suggestive of pulmonary vascular congestion. PLEURA: No pleural effusion or pneumothorax. HEART AND MEDIASTINUM: The cardiomediastinal silhouette is enlarged. Atherosclerotic calcification of the thoracic aortic knob. BONES AND SOFT TISSUES: No acute osseous lesion. Soft tissues are unremarkable. UPPER ABDOMEN: No free air under the diaphragm. IMPRESSION: Cardiomegaly with pulmonary vessel congestion. No focal consolidation, pleural effusion or pneumothorax. Signed by: Ayesha Coats MD on 06/02/2020 3:24 PM
[2020-06-02 15:28] LABS: ALANINE AMINOTRANSFERASE 15 IU/L (0-55); ALBUMIN 2.8 g/dL (3.5-5.0); ALBUMIN/GLOBULIN RATIO 0.8 (0.8-2.0); ALKALINE PHOSPHATASE 129 IU/L (40-150); ANION GAP 12.9 mmol/L (8-16); BLOOD UREA NITROGEN 40 mg/dL (7-26); BUN/CREATININE RATIO 31 (6-25); CALCIUM 8.7 mg/dL (8.4-10.2); CARBON DIOXIDE 21 mmol/L (22-29); CHLORIDE 117 mmol/L (98-107); CREATINE KINASE 40 IU/L (29-168); CREATININE, SERUM 1.27 mg/dL (0.57-1.11); EST GLOMERULAR FILTRATION RATE 41 ML/MIN (60-); GLUCOSE 117 mg/dL (74-118); MAGNESIUM 2.1 MG/DL (1.3-2.1); POTASSIUM 3.9 mmol/L (3.5-5.1); SODIUM 147 mmol/L (136-145)
[2020-06-02] MEDS ORDERED: PHYTONADIONE 10 MG/ML AMP SQ ONE (15:30)
--- NOTE | 2020-06-02 15:31 | Diagnostic Imaging Report ---
EXAMINATION: Head CT HISTORY: 74-year-old female with weakness, altered mental status COMPARISON: Head CT 04/20/2020 TECHNIQUE: Helical axial images of the head were obtained. Reformatted coronal and sagittal images from the axial data. Dose modulation, iterative reconstruction, and/or weight based adjustment of the mA/kV was utilized to reduce the radiation dose to as low as reasonably achievable. Image quality: Motion/streaking artifact limits the evaluation of the skull base and posterior cranial fossa. FINDINGS: Parenchyma: 1. Gwhm-zr-aqznjgvw chronic microvascular ischemic changes, stable compared to head CT of 04/20/2020 2. No mass or hemorrhage. No CT evidence of acute territorial vascular insult. Extra-axial spaces:No abnormal density. No extra-axial fluid collections Brain volume: Normal for age. Ventricles: No hydrocephalus or displacement. Arteries: No density suggestive of thrombus. Dural sinuses: No abnormal density. Foramen magnum: No mass, Chiari malformation, or basilar invagination. Sella: No obvious mass. Paranasal/mastoid sinuses: Imaged portions unremarkable. Skull/Scalp: No lytic or blastic lesions. No fractures. IMPRESSION: 1. No acute intracranial abnormality. 2. Stable mild to moderate chronic microvascular ischemic changes compared to head CT of 04/20/2020. Signed by: Dr. Kiki Love M.D. on 06/02/2020 3:28 PM
[2020-06-02 15:34] LABS: ANISOCYTOSIS SLIGHT; HYPOCHROMASIA SLIGHT; PLATELET ESTIMATE ADEQUATE; PLATELET MORPHOLOGY COMMENT NORMAL
[2020-06-02 15:48] LABS: THYROID STIMULATING HORMONE 2.981 uIU/mL (0.350-4.940)
[2020-06-02] MEDS ORDERED: SODIUM CHLORIDE 0.9% 1000ML 1,000 ML IV SCH (16:15)
--- OUTSIDE RECORDS SUMMARY | 2020-06-02 16:17 | XMS REPORT | Continuity of Care Document ---
Author Author CSRAMAURY [employer] [place] Address Unknown Phone Unavailable Care Team Providers Care Cloth Measurer Machine Name Role Phone [employer] Unavailable Un available Problems Problem Status Onset Date Classification Date Reported Comments Source UNK Active 1 12/15/2015 [facility] DIZZINESS Active 12/01/2012 [facility] Diabetes mellitus (disorder) R esolved Problem 08/2020 [facility] REGINE Reyesor e Hypertensive disorder, systemic arterial (disorder) Resolved Problem 03/28/2020 [facility] REGINE Cruz Atrial fibrillation Active Diagnosis 06/22/2014 [...] (Same as:Genesis fuentes) No milk/antacids/iron. Inactive 10/17/2016 [facility] 24 HR Metoprolol Tartrate 100 MG Extende d Release Tablet [Toprol] Notes: (Same as: Toprol XL) May split t ab, but do not crush. Inactive 10/17/2016 [facility] Isosorbide Notes: (Same as:Imd ur) "Do Not Crush" Take on empty stomach/ full glass of water. Inactive 10/17/2016 [facility] Hydrochlorothiazide 25 MG / Triamterene 37.5 MG Oral Capsule Notes: (triamterene-hydrochlorothiazide 37.5-25 mg TAB) (Same As: Maxzide- 25) Inactive 10/17/2016 [facility] Esomeprazole 40 mg, Route: PO, Drug form: ECCAP, Daily, Dosing Weight 99.545, kg, Start date: 10/17/16 9:00:00 JAIL KEEPER, Duration: 30 day, Stop date: 11/15/16 9:00:00 JAIL KEEPER No Longer Active 10/17/2016 [facility] celecoxib Notes: NSAID. Please check indication. Not for seizure. (Same As: CeleBREX) Inactive 10/17/2016 [facility] Protonix Notes: Tablet should not be chewed or crushed. (Same as: Protonix) Inactive 10/17/2016 [facility] influenza virus vaccine, inactivated Notes: (Same as: Fluzone Quadrivalent, Fluarix Quadrivalent) For 3 years of age and older (0.5 mL IM) Shake well before use Inactive 10/16/2016 [facility] Glipizide 5 MG Oral Tablet Not es: (Same as: Glucotrol) 30 min before meals. No Longer Active 10/16/2016 [facility] Glucagon 1 mg, Route: IM, Drug form: PDR/INJ, PRN, Dosing Weight 99.545, kg, PRN Blood Glucose Results, Start date: 10/16/16 13:15:00 JAIL KEEPER, Duration: 30 day, Stop date: 11/15/16 13:14:00 JAIL KEEPER No Longer Active 10/16/2016 [facility] Dextrose 50% Syringe 12.5 gm, 25 mL, Route: IVP, Drug Form: INJ, Dosing Weight 99.545, kg, PRN, PRN Blood Glucose Results, Start date: 10/16/16 13:15:00 JAIL KEEPER, Duration: 30 day, Stop date: 11/15/16 13:14:00 JAIL KEEPER No Longer Active 10/16/2016 [facility] Insulin, Aspart, Human Notes: Roll in palms of hands gently; Do not shake vigorously. (Same as: NovoLOG) "single patient use only" WASTE: F/P - Black; E - [employer] Stable for 28 days at room temperature. Expires in days from Date No Longer Active 10/16/2016 [facility] Lyrica Notes: Same as Lyrica No Longer Active 10/16/2016 [facility] tramadol hydrochloride 50 MG Oral Tablet Notes: Not to exceed 400mg/day. (Same As: Ultram) No Longer Active 10/16/2016 [facility] acetaminophen-codeine #3 Notes : Do not exceed 4gm/day of acetaminophen. (Same as: Tylenol with Codeine # 3) No Longer Active 10/16/2016 [facility] Vancomycin 2001 mg: infuse ov er 2.5 hours MEDICATION WASTE Product Size: 1000 mg Product Wasted: ___ mg Inactive 10/16/2016 [facility] Glipizide 5 MG Oral Tablet 5 m g = 1 tab, PO, BID-Before Meals, # 30 tab, 1 Refill(s) Active 10/15/2016 [facility] apixaban 5 MG Oral Tablet [Eliquis] 5 mg = 1 tab, PO, Daily, 0 Refill(s) Active 10/15/2016 [facility] metoprolol 100 mg oral tablet, extended release 100 mg = 1 tab, PO, Daily, # 30 tab, 0 Refill(s) Active 10/15/2016 [facility] pregabalin 50 MG Oral Capsule [Lyrica] 50 mg = 1 cap, PO, TID, 0 Refill(s) Active 10/15/2016 [facility] tramadol hydrochloride 50 MG Oral Tablet 50 mg = 1 tab, PO, Q6H, PRN Pain, # 40 tab, 0 Refill(s) Active 10/15/2016 [facility] dronedarone 400 MG Oral Tablet [Multaq] 400 mg = 1 tab, PO, BID, # 60 tab, 0 Refill(s) Active 10/15/2016 [facility] Esomeprazole 40 MG Enteric Coated Capsule 40 mg = 1 cap, PO, Daily, # 30 cap, 0 Refill(s) Active 10/15/2016 [facility] Metformin hydrochloride 500 MG Oral Tablet 500 mg = 1 tab, PO, BID-Meals, # 30 tab, 0 Refill(s) Active 10/15/2016 [facility] celecoxib 200 mg oral capsule 200 mg = 1 cap, PO, Daily, # 30 cap, 0 Refill(s) Active 10/15/2016 [facility] isosorbide mononitrate 30 mg oral tablet , extended release 30 mg = 1 tab, PO, QAM, # 30 tab, 0 Refill(s) Active 10/15/2016 [facility] Hydrochlorothiazide 25 MG / Triamterene 37.5 MG Oral Capsule 1 cap, PO, Daily, # 30 cap, 0 Refill(s) Active 10/15/2016 [facility] Thyroxine Daily, 0 Refill(s) Active 10/15/2016 [facility] Metoprolol Succinate 1 TABLET Orally Active [...] D (Ergocalciferol) 1 c apsule Orally Active 14199 UNIT Orally [facility] Isosorbide [...] [facility] Solu-MEDROL Assertion Drug allergy Active [facility] Immunizations Immunization Date Given Site Status Last Updated Comments Source influenza virus vaccine, inactivated 10/16/2016 Right deltoid completed [place] [facility] Results Order Name Results Value Reference Range [...] should be multiplied by the estimated BMI. [facility] CHEM PANEL Potassium Lvl 4.3 3.5 - 5.1 10/15/2016 [facility] CHEM PANEL Chloride Lvl 111 95 - 109 10/15/2016 [facility] CHEM PANEL CO2 25 24 - 32 10/15/2016 [facility] CHEM PANEL Calcium Lvl 9.2 8.5 - 10.5 10/15/2016 [facility] CHEM PANEL Creatinine Lvl 1.10 0.50 - 1.40 10/15/2016 [facility] CHEM PANEL BUN 24 7 - 22 10/15/2016 [facility] CHEM PANEL Sodium Lvl 143 135 - 145 10/15/2016 [facility] CHEM PANEL Glucose Lvl 162 70 - 99 10/15/2016 [facility] CHEM PANEL AGAP 11.3 10.0 - 20.0 10/15/2016 [facility] HEMATOLOGY Lymphocytes # 1.3 1.0 - 5.5 10/15/2016 [facility] HEMATOLOGY Segs-Bands # 3.6 1.5 - 8.1 10/15/2016 [facility] HEMATOLOGY Monocytes # 0.6 0.0 - 0.8 10/15/2016 [facility] HEMATOLOGY Basophils 0.7 0.0 - 1.0 10/15/2016 [facility] HEMATOLOGY Eosinophils # 0.2 0.0 - 0.5 10/15/2016 [facility] HEMATOLOGY Segs 62.5 45.0 - 75.0 10/15/2016 [facility] HEMATOLOGY Lymphocytes 22.7 20.0 - 40.0 10/15/2016 [facility] HEMATOLOGY Eosinophils 3.4 0.0 - 4.0 10/15/2016 [facility] HEMATOLOGY Monocytes 10.7 2.0 - 12.0 10/15/2016 [facility] HEMATOLOGY PTT 32.6 22.9 - 35.8 10/15/2016 [facility] HEMATOLOGY INR 1.26 0.85 - 1.17 10/15/2016 [facility] PT 16.1 12.0 - 14.7 10/15/2016 [facility] MCH 31.1 27.0 - 31.0 10/15/2016 [facility] MCV 95.1 80.0 - 98.0 10/15/2016 [facility] MCHC 32.7 32.0 - 36.0 10/15/2016 [facility] Hct 42.7 36.0 - 48.0 10/15/2016 [facility] MPV 9.9 7.4 - 10.4 10/15/2016 [facility] Platelet 135 133 - 450 10/15/2016 [facility] RDW 14.0 11.5 - 14.5 10/15/2016 [facility] RBC 4.49 4.20 - 5.40 10/15/2016 [facility] WBC 5.8 3.7 - 10.4 10/15/2016 [facility] Hgb 14.0 12.0 - 16.0 10/15/2016 [facility] Pathology Reports No Data Provided for [...] canal and left neural foraminal stenosis. 03/26/2020 [facility] Chest 2 views DX Patient Name: AMAURY CONTE : 1945; Age: 71 years Female MR: [id number] Study: Chest 2 views DX Order Time: 10/17/2016 3:00 AM JAIL KEEPER CLINICAL INDICATION: Line Placement ADDITIONAL HISTORY: None COMPARISON: Chest radiograph on 10/16/2016 FINDINGS: Lines: Stable position of the left chest pacemaker. Lungs: Hyperinflated lungs. Linear scarring and/or atelectasis within the left midlung. No effusion or pneumothorax. Mediastinum: The cardiac silhouette is mildly enlarged. Midline trachea. Bones and soft tissues: Unremarkable. IMPRESSION: No acute cardiopulmonary abnormalities. SL: [id number] 10/17/2016 [facility] Chest 1view DX Patient Name: AMAURY CONTE : 1945; Age: 71 years y/o Female MR: [id number] Study: Chest 1view DX 10/16/2016 11:25 AM JAIL KEEPER Ordering Physician: MD Omer Zelaya MD Clinical [...] pneumothorax seen. No other new/acute findings. SL: [id number] 10/16/2016 [facility] Consultation Notes No Data Provided for This Section Discharge Summaries No Data Provided for This Section History and Physicals No Data Provided for This Section Vital Signs Vital Sign Value Date Comments Source Respitory Rate 16 10/17/2016 [facility] Systolic (mm Hg) 97 10/17/2016 [facility] Diastolic (mm Hg) 59 10/17/2016 [facility] Heart Rate 71 10/17/2016 [facility] Temperature Oral (F) 98.1 F 10/17/2016 [facility] Systolic (mm Hg) 111 10/17/2016 [facility] Diastolic (mm Hg) 63 10/17/2016 [facility] Respitory Rate 18 10/17/2016 [facility] Temperature Oral (F) 98.1 F 10/17/2016 [facility] Heart Rate 79 10/17/2016 [facility] Respitory Rate 16 10/17/2016 [facility] Systolic (mm Hg) 130 10/17/2016 [facility] Diastolic (mm Hg) 72 10/17/2016 [facility] Heart Rate 85 10/17/2016 [facility] Temperature Oral (F) 98.1 F 10/17/2016 [facility] BMI Calculated 41.47 10/15/2016 [facility] Height 154.94 cm 10/15/2016 [facility] Weight 99.545 10/15/2016 [facility] Weight 232 06/13/2014 [facility] [...] Provider ADM Date DC Date Status Source [facility] Emergency [id number] THELMA BARCENAS 12/01/2012 12/01/2012 Discharged [facility] Rose Mary MCMILLAN PA ECHO [id number] 02/23/20 14 02/22/2014 [facility] MCMILLAN PA ECHO [id number] 02/23/20 14 02/22/2014 [facility] MCMILLAN PA ECHO [id number] 02/23/20 14 02/22/2014 [facility] MCMILLAN PA ECHO [id number] 02/23/20 14 02/22/2014 [facility] Rose Mary JACOBSON ECHO [id number] 02/23/20 14 02/22/2014 [facility] JACOBSON ECHO [id number] 02/23/20 14 02/22/2014 [facility] MCMILLAN PA ECHO [id number] 02/23/20 14 02/22/2014 [facility] MCMILLAN PA ECHO [id number] 02/23/20 14 02/22/2014 [facility] Mary MCMILLAN PA F/U FOR ECHO [id number] 02/23/20 14 02/22/2014 [facility] MCMILLAN PA F/U FOR ECHO [id number] 02/23/20 14 02/22/2014 [facility] MCMILLAN PA F/U FOR ECHO [id number] 02/23/20 14 02/22/2014 [facility] MCMILLAN PA F/U FOR ECHO [id number] 02/23/20 14 02/22/2014 [facility] MCMILLAN PA F/U FOR ECHO [id number] 02/23/20 14 02/22/2014 [facility] Mary MCMILLAN PA F/U FOR ECHO [id number] 02/23/20 14 02/22/2014 [facility] Mary MCMILLAN PA F/U FOR ECHO [id number] 02/23/20 14 02/22/2014 [facility] Mary MCMILLAN PA F/U FOR ECHO [id number] 02/23/20 14 02/22/2014 [facility] Rose Mary MCMILLAN PA Refills [id number] 05/01/20 14 05/01/2014 [facility] MCMILLAN PA Refills [id number] 05/01/20 14 05/01/2014 [facility] MCMILLAN PA Refills [id number] 05/01/20 14 05/01/2014 [facility] MCMILLAN PA Refills [id number] 05/01/20 14 05/01/2014 [facility] MCMILLAN PA Refills [id number] 05/01/20 14 05/01/2014 [facility] MCMILLAN PA Refills [id number] 05/01/20 14 05/01/2014 [facility] MCMILLAN PA Refill [id number] 05/03/20 14 05/03/2014 [facility] MCMILLAN PA Refill [id number] 05/03/20 14 05/03/2014 [facility] MCMILLAN PA Refill [id number] 05/03/20 14 05/03/2014 [facility] MCMILLAN PA Refill [id number] 05/03/20 14 05/03/2014 [facility] MCMILLAN PA Refill [id number] 05/03/20 14 05/03/2014 [facility] MCMILLAN PA Refill [id number] 05/03/20 14 05/03/2014 [facility] MCMILLAN PA Refills [id number] 05/03/20 14 05/03/2014 [facility] MCMILLAN PA Refills [id number] 05/03/20 14 05/03/2014 [facility] MCMILLAN PA Refills [id number] 05/03/20 14 05/03/2014 [facility] MCMILLAN PA Refills [id number] 05/03/20 14 05/03/2014 [facility] John MCMILLAN PA Refills [id number] 05/03/20 14 05/03/2014 [facility] John MCMILLAN PA Refills [id number] 05/03/20 14 05/03/2014 [facility] John JACOBSON Unknown [id number] 05/03/20 14 05/03/2014 [facility] John JACOBSON Unknown [id number] 05/03/20 14 05/03/2014 [facility] Rose Marynhan JACOBSON Unknown [id number] 05/03/20 14 05/03/2014 [facility] Rose Marynhan JACOBSON Unknown [id number] 05/03/20 14 05/03/2014 [facility] John JACOBSON Unknown [id number] 05/03/20 14 05/03/2014 [facility] Mary JACOBSON Unknown [id number] 05/03/20 14 05/03/2014 [facility] Rose Marynhan JACOBSON medicatins [id number] 06/13/20 14 06/13/2014 [facility] Rose Marynhan JACOBSON medicatins [id number] 06/13/20 14 06/13/2014 [facility] Rose Marynhan MCMILLAN PA REFILL [id number] 06/13/20 14 06/13/2014 [facility] Mary MCMILLAN PA REFILL [id number] 06/13/20 14 06/13/2014 [facility] Bed[facility] Outpatient [id number] Omer Zelaya 10/16/2016 10/17/2016 [facility] - [place] Out[facility] Diag Services [id number] Homer Castellanosaraz 03/26/2020 03/27/2020 [facility] Procedures Procedure Code Date Perfomer Comments Source Appendectomy [id number] [facility] Cholecystectomy [id number] [facility] Hysterectomy [id number] [facility] Lumbar spinal fusion [id number] [facility] Assessment and Plan No Data Provided for This Section Plan of Care No Data Provided for This Section Social History Social History Date Source Social History TypeResponse Smoking Status Never smoker; Exposure to Tobacco Smoke None; Cigarette Smoking Last 365 Days No; Reg Smoking Cessation Counseling No 10/15/2016 [facility] Social History TypeResponse Smoking Status Never smoker; Exposure to Tobacco Smoke None; Cigarette Smoking Last 365 Days No; Reg Smoking Cessation Counseling No entered on: 10/15/16 10/15/2016 [facility] Social History ElementQualifiersDate Rep orted Diet: . [...]
--- OUTSIDE RECORDS SUMMARY | 2020-06-02 16:18 | XMS REPORT | Continuity of Care Document ---
Author Author [facility] t Organization [facility] Address [address] [place] [address] Phone Unavailable Care Team Providers Care Concrete Block Maker Name Role Phone JUAN DO Rose DHALIWAL PCP Carolee BONNER Attphys Unavailable HUE PETERSON Attphys Unavailable Marielle NEWMAN Attphys Unavailable Sofi Benz Attphys Omer Pitt Attphys HUE PETERSON Admphys Unavailable Payers Payer Name Policy Type Policy Number Effective Date Expiration Date Marielle tam [facility] Medicare Complete [id number] 2020 00:00:00 [facility] Cdc Review [id number] [facility] [id number] 2018 00:00:00 [facility] Problems Condition Name Condition Details Condition Category Status Onset Date Resolution Date Last Treatment Date Treating Clinician Comments Source TALI CESAR Active 10/14/2016 [facility] Active 2016-10-14 00:00:00 2016-10-24 07:28:00 Sofi Faust DIZZINESS DIZZ INESS Active 12/01/2012 [facility] Diagnosis Active 2012-12-01 00:00:00 2012-12-01 18:43:00 Osbaldo Faust Chronic atrial fibrillation Atrial fibrillation, chronic Problem Active [facility] Balance problems Balance problem Problem Active [facility] Vertigo Vertigo Problem Active [facility] Altered mental status Problem Active [facility] Macrocytic anemia Problem Active [facility] Acute renal insufficiency Problem Active [facility] Hypernatremia Problem Active [facility] Back pain Problem Active [facility] Hepatic encephalopathy Problem Active [facility] Renal insufficiency Problem Active [facility] Hyperbilirubinemia Problem Active [facility] Coagulation disorder Problem Active [facility] Urinary tract infection Problem Active [facility] Diabetes mellitus (disorder) D iabetes mellitus (disorder) Resolved Problem 03/28/2020 [facility] REGINE [place] Problem Resolved 2020-03-28 23:28:22 Isrrael Faust Hypertensive disorder, systemic arterial (disorder) Hypertensive disorder, systemic arterial (disorder) Resolved Problem 03/28/2020 [facility] KRUPAD [place] Problem Resolved 2020-03-28 23 :28:22 Osbaldo Faust [...] STEROIDS Allergy to substance Active 2018-11-10 00:00:00 [facility] Griselda Villalobos Active Info Not Available 2014-06-13 00:00:00 [facility] Neuromuscular Blockers, Steroidal DA Active U 2012-02-12 00:00:00 [facility] Solu-MEDROL Solu-MEDROL Active [facility] Family History Family Member Diagnosis Comments Start Date Stop Date Source Unknown Family Member Family History 2014-02-23 04:18:31 2 04:18:31 [facility] Social History Social Habit Start Date Stop Date Quantity Comments Source Diet: 2014-06-13 00:00:00 2014-06-13 00:00:00 [facility] Sex Ass[birth year] At 1945 00:00:00 1945 00:00:00 Female [facility] Smoking Status Start Date Stop Date Source Social History [facility] Medications Ordered Medication Name Filled Medication Name Start Date Stop Da te Current Medication? Ordering Clinician Indication Dosage Frequency Signature (SIG) Comments Components Source Ceftriaxone Sodium (Ceftriaxone) 1 Gm VIAL Ceftriaxone Sodium (Ceftriaxone) 1 Gm VIAL 2020-04-26 09:51:00 Yes 1 Daily [facility] Apixaban (Eliquis) 2.5 Mg TABLET Apixaban (Eliquis) 2.5 Mg T ABLET 2020-04-22 09:25:00 Yes 2.5 Every 12 Hours [facility] Lactulose Lactulose 2020-04-21 09:12:00 Yes 30 Daily @0600 [facility] Ascorbic Acid Ascorbic Acid 2020-04-21 09:06:00 Yes 500 Daily [facility] Ferrous Sulfate Ferrous Sulfate 2020-04-21 09:06:00 Yes 325 Daily@0600 [facility] Meclizine Hcl Meclizine Hcl 2020-04-21 09:06:00 Yes 25 Twice A Day as needed for Dizziness [facility] Pantoprazole Sodium (Protonix) 40 Mg TABLET. Pantopr azole Sodium (Protonix) 40 Mg TABLET. 2020-04-21 09:06:00 Yes 40 Before [place] kfast [facility] Tramadol Hcl (Ultram) 50 Mg TABLET Tramadol Hcl (Ultram) 50 Mg TABLET 2020-04-20 01:00:00 Yes 50 Every 6 Ho urs as needed for Mild Pain (1-3) Or Fever>100.8 [facility] Pantoprazole Sodium (Protonix) 40 Mg TABLET. Pantopr azole Sodium (Protonix) 40 Mg TABLET. 2020-04-09 10:43:00 2020-04-21 00:00:00 No 40 Before Breakfast [facility] Baclofen Baclofen 2018-11-11 10:52:00 2020-04-07 00:00:00 No 5 Every 12 Hours as needed for Muscle Spasm [facility] Fluticasone Propionate Fluticasone Propionate 2018-11-11 10:52:0 0 2020-04-07 00:00:00 No 0 Twice A Day [facility] Meclizine Hcl Meclizine Hcl 2018-11-11 10:52:00 2020-04-07 00:00:00 No 25 Every 6 Hours as needed for Vertigo [facility] Pregabalin (Lyrica) 50 Mg CAP Pregabalin (Lyrica) 50 Mg CAP 2018 10:52:00 2020-04-07 00:00:00 No 50 Three Times A Day as needed for Pain [facility] Minocycline 2016-10-17 15:00:00 No Notes: (Same as:Minocin) [...] iamterene-hydrochlorothiazide 37.5-25 mg TAB) (Same As: Maxzide-25) [facility] Esomeprazole 2016-10-17 15:00:00 No 40 mg, Route: PO, Drug form: ECCAP, Daily, Dosing Weight 99.545, kg, Start date: 10/17/16 9:00:00 PHARMACY GRADUATE INTERN, Duration: 30 day, Stop date: 11/15/16 9:00:00 PHARMACY GRADUATE INTERN [facility] celecoxib 2016-10-17 15:00:00 No Notes: NSAID. Please check indication. Not for seizure. (Same As: CeleBREX) [facility] Protonix 2016-10-17 13:30:00 No Notes: Tablet should not be chewed or crushed. (Same as: Protonix) [facility] influenza virus vaccine, inactivated 2016-10-16 22:30:00 No Notes: (Same as: Fluzone Quadrivalent, Fluarix Quadrivalent) For 3 years of age and older (0.5 mL IM) Shake well before use [facility] Glipizide 5 MG Oral Tablet 2016-10-16 22:30:00 No Notes: (Same as: Glucotrol) 30 min before meals. Cristian penn Govind Glucagon 2016-10-16 19:15:00 No 1 mg, Route: IM, Drug form: PDR/INJ, PRN, Dosing Weight 99.545, kg, PRN Blood Glucose Results, Start date: 10/16/16 13:15:00 PHARMACY GRADUATE INTERN, Duration: 30 day, Stop date: 11/15/16 13:14:00 PHARMACY GRADUATE INTERN [facility] Dextrose 50% Syringe 2016-10-16 19:15:00 No 12.5 gm, 25 mL, Route: IVP, Drug Form: INJ, Dosing Weight 99.545, kg, PRN, PRN Blood Glucose Results, Start date: 10/16/16 13:15:00 PHARMACY GRADUATE INTERN, Duration: 30 day, Stop date: 11/15/16 13:14:00 PHARMACY GRADUATE INTERN [facility] Insulin, Aspart, Human 2016-10-16 19:15:00 [...] PO, Daily, # 30 cap, 0 Refill(s) [facility] Metformin hydrochloride 500 MG Oral Tablet 2016-10-15 16:45:00 Yes 500 mg = 1 tab, PO, BID-Meals, # 30 tab, 0 Refill(s) [facility] celecoxib 200 mg oral capsule 2016-10-15 16:44:00 Yes 200 mg = 1 cap, PO, Daily, # 30 cap, 0 [facility] 30 mg oral tablet, extended release 2016-10-15 16:44:00 Yes 30 mg = 1 tab, PO, QAM, # 30 ta b, 0 Refill(s) [facility] Hydrochlorothiazide 25 MG / Triamterene 37.5 MG Oral Capsule 2016-10-15 16:44:00 Yes 1 cap, PO, Daily, # 30 cap, 0 Refill(s) [facility] Thyroxine 2016-10-15 16:29:00 Yes Daily, 0 R efill(s) [facility] Levothyroxine Sodium 2014-06-22 02:59:33 Yes John Molina laby 1 tablet on an empty stomach in the morning Isrrael Faust Vitamin D (Ergocalciferol) 2014-06-22 02:59:33 Yes Davi ed Rose Mary 1 capsule [facility] Isosorbide Mononitrate CR 2014-06-22 02:59:33 Yes Dre d Rose Mary 1 tablet [facility] Metformin 2014-06-22 02:59:33 Yes John Bazzi as direct [facility] Triamterene 2014-06-22 02:59:33 Yes John Rose Mary 1 capsule [facility] Xarelto 2014-06-22 02:59:33 Yes John Rose Mary 1 tablet with food [facility] Amiodarone 2014-06-22 02:59:33 Yes John Rose Mary 1/2 tab [facility] GlipiZIDE 2014-06-22 02:59:33 Yes John Rose Mary 1 tablet [facility] Warfarin Sodium 2014-06-22 02:59:33 Yes John Rose Mary 1 tablet [facility] Ciprofloxacin 500 mg BID 7d 2014-06-22 02:59:33 Yes [place] med Rose Mary one tab [facility] Metoprolol 2014-06-22 02:59:33 Yes John Rose Mary as directed [facility] Metoprolol Succinate 2014-06-13 00:00:00 Yes John Bazzi 1 TABLET [facility] Triamterene-HCTZ 2014-06-13 00:00:00 Yes John Bazzi 1 tablet in the morning [facility] Eliquis 2014-06-13 00:00:00 Yes John cole directed [facility] Metoprolol 2014-02-23 04:18:31 Yes John Bazzi as directed [facility] Fenofibrate Nanocrystallized (Fenofibrate) 145 Mg TABL ET Fenofibrate Nanocrystallized (Fenofibrate) 145 Mg TABLET Yes 160 Daily [facility] Furosemide (Lasix) 20 Mg TABLET Furosemide (Lasix) 20 Mg TABLET Yes 20 Daily [facility] Isosorbide Mononitrate (Isosorbide Mononitrate Er) 30 Mg TAB.ER.24H Isosorbide Mononitrate (Isosorbide Mononitrate Er) 30 Mg TAB.ER.24H Yes 30 Daily [facility] Levothyroxine Sodium Levothyroxine Sodium Yes 88 Daily [facility] Lisinopril Lisinopril Yes 20 Daily [facility] Mecobalamin (B12 Active) 1,000 Mcg TAB.CHEW Mecobalami n (B12 Active) 1,000 Mcg TAB.CHEW Yes 1 Daily [facility] Metoprolol Succinate Metoprolol Succinate Yes 1 Daily [facility] Apixaban (Eliquis) 5 Mg TAB.DS.PK Apixaban (Eliquis) 5 Mg TAB.DS .PK 2020-04-22 00:00:00 No 1 Twice A Day [facility] Iron Iron 2020-04-21 00:00:00 No 65 Daily [facility] Meclizine Hcl Meclizine Hcl 2020-04-21 00:00:00 No 25 Daily [facility] Amiodarone Hcl Amiodarone Hcl 2020-04-07 00:00:00 No 100 Daily [facility] Eliquis Eliquis 2020-04-07 00:00:00 No 5 Daily [facility] Fenofibrate Fenofibrate 2020-04-07 00:00:00 No 160 D aily [facility] Levothyroxine Sodium Levothyroxine Sodium 2020-04-07 00:00:00 No 88 Daily [facility] Lisinopril (Prinavil / Zestril) 20 Mg TABLET Lisinopri l (Prinavil / Zestril) 20 Mg TABLET 2020-04-07 00:00:00 No 20 Daily [facility] Metoprolol Succinate Metoprolol Succinate 2020-04-07 00:00:00 No 100 Daily [facility] Triamterene/Hydrochlorothiazid (Triamterene-Hctz 37.5- 25 Mg Cp) 1 Each CAPSULE Triamterene/Hydrochlorothiazid (Triamterene-Hctz 37.5-25 Mg Cp) 1 Each CAPSULE 2020-04-07 00:00:00 No 1 Daily [facility] Pregabalin (Lyrica) 50 Mg CAP Pregabalin (Lyrica) 50 Mg CAP 2018-11-11 00:00:00 No 50 Three Times A Day [facility] Vital Signs Vital Name Observation Time Observation Value Comments Source Body Temperature 2020-04-26 16:05:00 98.5 [degF] [facility] BMI (Body Mass Index) 2020-04-20 21:19:00 37.9 kg/m2 [facility] Weight 2020-04-20 12:52:00 228 [lb_av] [facility] Weight 2020-04-19 21:20:00 228 [lb_av] [facility] BMI (Body Mass Index) 2020-04-19 21:20:00 37.9 kg/m2 [facility] Body Temperature 2020-04-09 12:10:00 97.4 [degF] [facility] Weight 2020-04-07 23:59:00 228.03 [lb_av] [facility] BMI (Body Mass Index) 2020-04-07 23:59:00 37.9 kg/m2 [facility] Respitory Rate 2016-10-17 18:00:00 Memori [facility] Systolic (mm Hg) 2016-10-17 18:00:00 Steffen rial [place] Diastolic (mm Hg) 2016-10-17 18:00:00 [facility] [place] Heart Rate 2016-10-17 18:00:00 [facility] Temperature Oral (F) 2016-10-17 18:00:00 98.1 F [facility] Systolic (mm Hg) 2016-10-17 14:00:00 Steffen rial [facility]ind Diastolic (mm Hg) 2016-10-17 14:00:00 Mem orial [facility] Respitory Rate 2016-10-17 14:00:00 Memori al [facility] Temperature Oral (F) 2016-10-17 14:00:00 98.1 F [facility] Heart Rate 2016-10-17 14:00:00 [facility] Respitory Rate 2016-10-17 10:00:00 [facility] Systolic (mm Hg) 2016-10-17 10:00:00 Steffen rial [place] Diastolic (mm Hg) 2016-10-17 10:00:00 [facility] [place] Heart Rate 2016-10-17 10:00:00 [facility] Temperature Oral (F) 2016-10-17 10:00:00 98.1 F [facility] BMI Calculated 2016-10-15 16:25:00 [facility] Height 2016-10-15 16:25:00 154.94 cm [facility] Weight 2016-10-15 16:25:00 [facility] [place] Weight 2014-06-13 14:30:00 [facility] Heart Rate 2014-06-13 14:30:00 [facility] Diastolic (mm Hg) 2014-06-13 14:30:00 [facility] [place] Systolic (mm Hg) 2014-06-13 14:30:00 Steffen rial [facility] Weight 2014-02-22 18:45:00 [facility] [place] Heart Rate 2014-02-22 18:45:00 [facility] Diastolic (mm Hg) 2014-02-22 18:45:00 Mem o[facility] Systolic (mm Hg) 2014-02-22 18:45:00 Steffen rial [facility]ind Weight 2013-11-16 18:45:00 [facility] Heart Rate 2013-11-16 18:45:00 [facility] Diastolic (mm Hg) 2013-11-16 18:45:00 [facility] [place] Systolic (mm Hg) 2013-11-16 18:45:00 [facility] [place] Procedures Procedure Date / Time Performed Performing Clinician Sasha e Computed tomography of brain without radiopaque contrast 2020-04 00:00:00 [facility] Computed tomography of cervical spine without contrast 4 00:00:00 [facility] EXCISION OF STOMACH, ENDO, DIAGN 2020-04-09 00:00:00 [facility] DESTRUCTION OF STOMACH, ENDO 2020-04-09 00:00:00 [facility] Computed tomography angiography of brain 2020-04-08 00:00:[address] [facility] [address] angiography of neck 2020-04-08 00:00:00 [facility] US Liver 2020-04-08 00:00:00 [facility] Computed tomography of brain without radiopaque contrast 2020-03 00:00:00 [facility] Computed tomography of chest without contrast 2020-04-07 00:00:0 0 [facility] TRANSFUSE NONAUT RED BLOOD CELLS IN PERIPH VEIN, PERC 2020-04-07 00:00:00 [facility] Appendectomy [facility] Cholecystectomy [facility] Hysterectomy [facility] Lumbar spinal fusion [facility] Plan of Care Planned Activity Planned Date Details Comments Source Instructions Urinary Tract Infection - Women [facility] Encounters Start Date/Time End Date/Time Encounter Type Admission Type [facility] Facility Care Department Encounter ID Source 2020-04-19 23:00:00 2020-04-20 01:31:00 Departed Emergency Room 1 SHANKAR ENWMAN [facility] [id number] [facility] 2020-04-07 13:13:00 2020-04-09 14:47:00 Discharged Inpatient 1 HUE PETERSON [facility] [id number] [facility] 2020-03-26 12:17:00 2020-03-26 23:59:00 Outpatient Homer Benz MHOIB MHOIB [id number] 2019-02-05 04:59:00 2019-02-05 06:13:00 Departed Emergency Room [facility] [id number] [facility] 2018-11-10 08:44:00 2018-11-11 20:25:00 Discharged Inpatient (obs) 1 NEL BONNER [facility] [id number] [facility] 2016-10-16 08:20:00 2016-10-17 15:39:00 Outpatient Jo Marielle Omer okeefe MHSE MHSE [id number] 2014-06-13 10:27:00 2014-06-13 10:27:00 [place] [id number] [employer] 2014-06-13 09:30:00 2014-06-13 09:30:00 [place] [id number] [employer] 2014-05-03 14:04:00 2014-05-03 14:04:00 [place] [id number] [employer] 2014-05-03 13:53:00 2014-05-03 13:53:00 [place] [id number] [employer] 2014-05-03 10:49:00 2014-05-03 10:49:00 [place] [id number] [employer] 2014-05-01 15:06:00 2014-05-01 15:06:00 [place] [id number] [employer] 2014-02-22 13:45:00 2014-02-22 13:45:00 Outpatient Rose Mary [place]BS[place] [id number] [employer] 2014-02-22 13:30:00 2014-02-22 13:30:00 Outpatient Rose Mary [place]OBS[place] [id number] [employer] Results Test Description Test Time Test Comments Results Result Comments Source CT BRAIN WO 2020-06-02 15:25:00 [place] [address] Patient Name: AMAURY CONTE MR #: [id number] : 1945 Age/Sex: 74/F Req #: [id number] Adm Physician: Ordered by: NEL BONNER MD Report #: [id number] Location: ER Room/Bed: Procedure: [id number] CT/CT BRAIN WO Exam Date: Exam Time: REPORT STATUS: Signed EXAMINATION: Head CT HISTORY: 74-year-old female with weakness, altered mental status COMPARISON: Head CT 04/20/2020 TECHNIQUE: Helical axial images of the head were obtained. Reformatted coronal and sagittal images from the axial data. Dose modulation, iterative reconstruct ion, and/or weight based adjustment of the mA/kV was utilized to reduce the radiation dose to as low as reasonably achievable. Image quality: Motion/streaking artifact limits the evaluation of the skull base and posterior cranial fossa. FINDINGS: Parenchyma: 1. Lezo-xe-kkljobpn chronic microvascular ischemic changes, stable compared to head CT of 04/20/2020 2. No mass or hemorrhage. No CT evidence of acute territorial vascular insult. Extra-axial spaces:No abnormal density. No extra-axial fluid collections Brain volume: Normal for age. Ventricles: No hydrocephalus or displacement. Arteries: No density suggestive of thrombus. Dural sinuses: No abnormal density. Foramen magnum: No mass, Chiari malformation, or basilar invagination. Sella: No obvious mass. Paranasal/mastoid sinuses: Imaged portions unremarkable. Skull/Scalp: No lytic or blastic lesions. No fractures. IMPRESSION: 1. No acute intracranial abnormality. 2. Stable mild to moderate chronic microvascular ischemic changes compared to head CT of 04/20/2020. Signed by: Dr. Salma Love M.D. on 06/02/2020 3:28 PM Dictated By: SALMA LOVE MD 27 Transcribed By: JUAN on 06/02/20 1528 COPY TO: NEL BONNER MD CHEST SINGLE (PORTABLE) 2020-06-02 15:22:00 [place] [address] Patient Name: AMAURY CONTE MR #: [id number] : 1945 Age/Sex: 74/F Req #: [id number] Adm Physician: Ordered by: NEL BONNER MD Report #: [id number] Location: ER Room/Bed: Procedure: [id number] DX/CHEST SINGLE (PORTABLE) Exam Date: Exam Time: REPORT STATUS: Signed EXAMINATION: CHEST SINGLE (PORTABLE) INDICATION: Altered mental status. COMPARISON: None FINDINGS: TUBES and LINES: Single lead cardiac pacemaker overlying the left chest wall. LUNGS: Normal lung volumes. Lungs are clear. No consolid ations. There is bilateral hilar prominence suggestive of pulmonary vascular congestion. PLEURA: No pleural effusion or pneumothorax. HEART AND MEDIASTINUM: The cardiomediastinal silhouette is enlarged. Atherosclerotic calcification of the thoracic aortic knob. BONES AND SOFT TISSUES: No acute osseous lesion. Soft tissues are unremarkable. UPPER ABDOMEN: No free air under the diaphragm. IMPRESSION: Cardiomegaly with pulmonary vessel congestion. No focal consolidation, pleural effusion or pneumothorax. Signed by: Ayesha Rojas MD on 06/02/2020 3:24 PM Dictated By: AYESHA ROJAS MD 23 Transcribed By: JUAN on 06/02/201523 COPY TO: NEL BONNER MD Capillary blood glucose measurement by glucometer (mas s/volume) 2020-04-26 15:13:00 Test Item Bedside Glucose (test code = 36153-7) 132 70-120 Meter ID: [id number] [facility] leukocytes automated count (number/volume)2020-04-26 04:55:00* Test Item Value Reference Range Interpretation Comments White Blood Count (test code = 6690-2) 3.85 4.8-10.8 [facility] erythrocytes automated count (number/volume)2020-04-26 04:55:00* Test Item Value Reference Range Interpretation Comments Red Blood Count (test code = 789-8) 2.59 3.6-5.1 [facility] hemoglobin measurement (moles/volume)2020-04-26 04:55:00* Test Item Value Reference Range Interpretation Comments Hemoglobin (test code = 51104-9) 8.2 12.0-16.0 [facility] blood hematocrit (volume fraction)2020-04-26 04:55:00* Test Item Value Reference Range Interpretation Comments Hematocrit (test code = 4544-3) 27.3 34.2-44.1 [facility] erythrocyte mean corpuscular [id number] 04:55:00* Test Item Value Reference Range Interpretation Comments Mean Corpuscular Volume (test code = 787-2) 105.4 81-99 [facility] eryth[facility] mean corpuscular hemoglobin (mass per erythrocyte)2020-04-26 04:55:00* Test Item Value Reference Range Interpretation Comments Mean Corpuscular Hemoglobin (test code = 785-6) 31.7 28-32 [facility] erythrocyte mean corpuscular hemoglobin concentration measurement (mass/volume)2020-04-26 04:55:00* Test Item Value Reference Range Interpretation Comments Mean Corpuscular Hemoglobin Concent (test code = 786-4) 30.0 31-35 [facility] CenterRDW [id number] 04:55:00* Test Item Value Reference Range Interpretation Comments Red Cell Distribution Width (test code = 77424-5) 21.0 11.7 -14.4 [facility] Center[facility] blood platelet count (count/volume)2020-04-26 04:55:00* Test Item Value Reference Range Interpretation Comments Platelet Count (test code = 777-3) 120 140-360 [facility] Center[facility] blood segmented neutrophil count as percentage of total [id number] 04:55:00* Test Item Value Reference Range Interpretation Comments Neutrophils (%) (Auto) (test code = 11439-7) 54.5 38.7-80.0 [facility] Center[facility] lymphocyte count as percentage ot total [id number] 04:55:00* Test Item Value Reference Range Interpretation Comments Lymphocytes (%) (Auto) (test code = 736-9) 24.2 18.0-39.1 [facility] Center[facility] blood monocyte count as percentage of total [id number] 04:55:00* Test Item Value Reference Range Interpretation Comments Monocytes (%) (Auto) (test code = 5905-5) 13.8 4.4-11.3 [facility] blood eosinophil count as percentage of total [id number] 04:55:00* Test Item Value Reference Range Interpretation Comments Eosinophils (%) (Auto) (test code = 713-8) 5.7 0.0-6.0 [facility] Center[facility] blood basophil count as percentage of total [id number] 04:55:00* Test Item Value Reference Range Interpretation Comments Basophils (%) (Auto) (test code = 706-2) 0.8 0.0-1.0 [facility] CenterFluoroscopic procedure less than one hour [id number] 04:55:00* Test Item Value Reference Range Interpretation Comments IM GRANULOCYTES % (test code = IM GRANULOCYTES %) 1.0 0.0- 1.0 [facility] neutrophil count 2020-04-26 04:55:00* Test Item Value Reference Range Interpretation Comments Neutrophils # (Auto) (test code = 751-8) 2.1 2.1-6.9 [facility] lymphocytes count (number/volume) 2020-04-26 04:55:00* Test Item Value Reference Range Interpretation Comments Lymphocytes # (Auto) (test code = 50713-8) 0.9 1.0-3.2 [facility] CenterBlood monocytes automated count (number/volume)2020-04-26 04:55:00* Test Item Value Reference Range Interpretation Comments Monocytes # (Auto) (test code = 742-7) 0.5 0.2-0.8 [facility] CenterAutomated blood eosinophil count 2020-04-26 04:55:00* Test Item Value Reference Range Interpretation Comments Eosinophils # (Auto) (test code = 711-2) 0.2 0.0-0.4 [facility] CenterAutomated blood basophil count (count/volume)2020-04-26 04:55:00* Test Item Value Reference Range Interpretation Comments Basophils # (Auto) (test code = 704-7) 0.0 0.0-0.1 [facility] CenterFluoroscopic procedure less than one hour clwxdngf6604-85-70 04:55:00* Test Item Value Reference Range Interpretation Comments Absolute Immature Granulocyte (auto (lyssa t code = Absolute Immature Granulocyte (auto) 0.04 0-0.1 [facility] CenterBlood platelets count by estimate (number/volume)2020-04-26 04:55:00* Test Item Value Reference Range Interpretation Comments Platelet Estimate (test code = 27636-9) SLIGHTLY DECREASED [facility] CenterPlatelet ykkwlfqypw8243-22-26 04:55:00* Test Item Value Reference Range Interpretation Comments Platelet Morphology Comment (test code = 83538-4) NORMAL [facility] CenterBlood polychromasia detection by light nwgdfzpvku6386-09-92 04:55:00* Test Item Value Reference Range Interpretation Comments Polychromasia (test code = 03167-7) FEW [facility] CenterBlood anisocytosis detection by light zdggrgbhps6948-09-37 04:55:00* Test Item Value Reference Range Interpretation Comments Anisocytosis (test code = 702-1) MODERATE [facility] CenterBlood macrocytes detection by light jfkgcubknc3845-64-28 04:55:00* Test Item Value Reference Range Interpretation Comments Macrocytosis (test code = 738-5) MODERATE [facility] CenterRBC tqhfbshrtf6384-96-16 04:55:00* Test Item Value Reference Range Interpretation Comments Red Cell Morphology Comment (test code = 6742-1) ABNORMAL [facility]ere[facility] or plasma sodium measurement (moles/volume)2020-04-26 04:55:00* Test Item Value Reference Range Interpretation Comments Sodium Level (test code = 2951-2) 142 136-145 [facility] Centererum or plasma potassium measurement (moles/volume)2020-04-26 04:55:00* Test Item Value Reference Range Interpretation Comments Potassium Level (test code = 2823-3) 5.0 3.5-5.1 Results called to MARIEL HASSAN RN at 0644 on 04/26/20 by Berta Lambert. RB [place].[facility] Centererum or plasma chloride measurement (moles/volume)2020-04-26 04:55:00* Test Item Value Reference Range Interpretation Comments Chloride Level (test code = 2075-0) 113 98-107 [facility] Centererum or plasma carbon dioxide, total measurement (moles/volume)2020-04-26 04:55:00* Test Item Value Reference Range Interpretation Comments Carbon Dioxide Level (test code = 2028-9) 26 22-29 [facility] Centererum or plasma anion quh3223-42-20 04:55:00* Test Item Value Reference Range Interpretation Comments Anion Gap (test code = 30391-0) 8.0 8-16 [facility] Centererum or plasma urea nitrogen measurement (mass/volume)2020-04-26 04:55:00* Test Item Value Reference Range Interpretation Comments Blood Urea Nitrogen (test code = 3094-0) 27 7-26 [facility] Centererum or plasma creatinine measurement (mass/volume)2020-04-26 04:55:00* Test Item Value Reference Range Interpretation Comments Creatinine (test code = 2160-0) 1.23 0.57-1.11 [facility] Centererum or plasma urea nitrogen/creatinine mass smxeu4278-07-15 04:55:00* Test Item Value Reference Range Interpretation Comments BUN/Creatinine Ratio (test code = 3097-3) 22 6-25 [facility] CenterEstimated glomerular filtration rate (GFR) mupxvqxempjdz0376-62-12 04:55:00* Test Item Value Reference Range Interpretation Comments Estimat Glomerular Filtration Rate (test code = 658847028) 43 >60 Ranges were taken from the National Kidney Disease Education Program and the [facility] literature.Reference ranges:60 or greater: Efvbvj37-97 ( for 3 consecutive months): Chronic kidney disease 15 or less: Kidney failureSaint [facility]illus Medical CenterGlucose bxzksmtulpd6694-25-40 04:55:00* Test Item Value Reference Range Interpretation Comments Glucose Level (test code = GCL9282) 106 74-118 [facility]ererum or plasma calcium measurement (mass/volume)2020-04-26 04:55:00* Test Item Value Reference Range Interpretation Comments Calcium Level (test code = 54579-1) 8.3 8.4-10.2 [facility] CenterUrine color aaigxmtirbioj7774-54-73 01:50:00* Test Item Value Reference Range Interpretation Comments Urine Color (test code = 5778-6) YELLOW YELLOW [facility] CenterUrine zhqurzb1954-99-51 01:50:00* Test Item Value Reference Range Interpretation Comments Urine Clarity (test code = 18060-9) SL CLOUDY CLEAR [facility] Centerpecific gravity of Urine by Test strip 2020-04-26 01:50:00* Test Item Value Reference Range Interpretation Comments Urine Specific [place] (test code = 5811-5) 1.025 1.010-1.02 5 [facility] CenterUrine pH measurement by automated test sugpg0549-79-43 01:50:00* Test Item Value Reference Range Interpretation Comments Urine pH (test code = 98073-2) 6 5-7 [facility] CenterUrine leukocyte esterase detection by whkdtpzn2041-88-55 01:50:00* Test Item Value Reference Range Interpretation Comments Urine Leukocyte Esterase (test code = 5799-2) NEGATIVE NEGATIVE [facility] CenterUrine nitrite oaqptwmev2073-77-66 01:50:00* Test Item Value Reference Range Interpretation Comments Urine Nitrite (test code = 46634-8) NEGATIVE NEGATIVE [facility] CenterUrine protein measurement by test strip (mass/volume)2020-04-26 01:50:00* Test Item Value Reference Range Interpretation Comments Urine Protein (test code = 5804-0) NEGATIVE NEGATIVE [facility] CenterUrine glucose omyjcyiix6400-57-65 01:50:00* Test Item Value Reference Range Interpretation Comments Urine Glucose (UA) (test code = 2349-9) NEGATIVE NEGATIVE [facility] CenterUrine ketones detection by automated test bnjqu0924-87-02 01:50:00* Test Item Value Reference Range Interpretation Comments Urine Ketones (test code = 80512-7) NEGATIVE NEGATIVE [facility] CenterUrine urobilinogen measurement by test strip (mass/volume)2020-04-26 01:50:00* Test Item Value Reference Range Interpretation Comments Urine Urobilinogen (test code = 37363-0) 1 0.2-1 [facility] CenterUrine total bilirubin measurement (mass/volume)2020-04-26 01:50:00* Test Item Value Reference Range Interpretation Comments Urine Bilirubin (test code = 1978-6) NEGATIVE NEGATIVE [facility] CenterUrine erythrocytes vbckfqpws3166-17-55 01:50:00* Test Item Value Reference Range Interpretation Comments Urine Blood (test code = 02342-2) NEGATIVE NEGATIVE [facility] CenterAutomated urine sediment leukocyte count by microscopy (number/high power field)2020-04-26 01:50:00* Test Item Value Reference Range Interpretation Comments Urine WBC (test code = 5821-4) 21-50 0-5 [facility] CenterErythrocytes detection in urine sediment by light gtcueijyok7509-88-85 01:50:00* Test Item Value Reference Range Interpretation Comments Urine RBC (test code = 82761-8) >50 0-5 [facility] CenterBacteria detection in urine sediment by light zdmayfavmb5531-34-30 01:50:00* Test Item Value Reference Range Interpretation Comments Urine Bacteria (test code = 72942-7) MODERATE NONE [facility] CenterEpithelial cells detection in urine sediment by light gkjflyijlv5985-62-23 01:50:00* Test Item Value Reference Range Interpretation Comments Urine Epithelial Cells (test code = 52166-9) FEW NONE [facility] CenterHyaline casts detection in urine sediment by light mgpcnsjaqj7823-83-99 01:50:00* Test Item Value Reference Range Interpretation Comments Urine Hyaline Casts (test code = 74896-7) 2-5 0-1 [facility] Centererum or plasma folate measurement (mass/volume)2020-04-25 04:50:00* Test Item Value Reference Range Interpretation Comments Folate (test code = 2284-8) 9.5 >3.0 A serum folate concentration of less than 3.1 ng/mL isconsidered to represent cl inical deficiency.Performed at: - Lab[address] [id number] Director: Skip Garner MD, Phone: [phone] [facility]illus Medical CenterAutomated reticulocyte count as percentage of total qofjtciygbep7250-75-32 05:20:00* Test Item Value Reference Range Interpretation Comments Percent Reticulocyte Count (test code = 94658-7) 4.6 0.8-2 .2 [facility] Centererum or plasma iron measurement (mass/volume)2020-04-24 05:20:00* Test Item Value Reference Range Interpretation Comments Iron Level (test code = 2498-4) 82 50-170 [facility] Centererum or plasma iron binding capacity measurement (mass/volume)2020-04-24 05:20:00* Test Item Value Reference Range Interpretation Comments Total Iron Binding Capacity (test code = 2500-7) 374 261-4 78 [facility] Centererum or plasma iron saturation measurement (mass fraction)2020-04-24 05:20:00* Test Item Value Reference Range Interpretation Comments Percent Iron Saturation (test code = 2502-3) 22 15-50 [facility] Centererum or plasma transferrin measurement (mass/volume)2020-04-24 05:20:00* Test Item Value Reference Range Interpretation Comments Transferrin (test code = 3034-6) 267 180-382 [facility] Centererum or plasma ferritin measurement (mass/volume)2020-04-24 05:20:00* Test Item Value Reference Range Interpretation Comments Ferritin (test code = 2276-4) 62.95 4.63-204.00 [facility] CenterBlood cobalamin (vitamin B12) measurement (mass/volume)2020-04-24 05:20:00* Test Item Value Reference Range Interpretation Comments Vitamin B12 Level (test code = 42332-5) > 2000 213-816 [facility] CenterProthrombin time (PT) in platelet poor plasma by coagulation eowvt3514-10-15 04:45:00* Test Item Value Reference Range Interpretation Comments Prothrombin Time (test code = 5902-2) 17.6 11.9-14.5 [facility] CenterINR in Platelet poor plasma by Coagulation grgbg2444-14-78 04:45:00* Test Item Value Reference Range Interpretation Comments Prothromb Time International Ratio (test code = 6301-6) 1.35 Oral Anticoagulant Therapy INR Values:1. Low Intensity Therapy 1.5 - 2.02 . Moderate Intensity Therapy 2.0 - 3.03. High Intensity Therapy(1) 2.5 - 3. 54. High Intensity Therapy(2) 3.0 - 4.05. Panic Value INR > 5.0 [facility] Centererum or plasma total bilirubin measurement (mass/volume)2020-04-23 04:45:00* Test Item Value Reference Range Interpretation Comments Total Bilirubin (test code = 1975-2) 1.1 0.2-1.2 [facility] CenterFluoroscopic procedure less than one hour znxbectr5547-67-94 04:45:00* Test Item Value Reference Range Interpretation Comments Aspartate Amino Transf (AST/SGOT) (test code = Aspartate Amino Transf (AST/SGOT)) 39 5-34 [facility] Centererum or plasma alanine aminotransferase measurement (enzymatic activity/volume)2020-04-23 04:45:00* Test Item Value Reference Range Interpretation Comments Alanine Aminotransferase (ALT/SGPT) (test code = 1742-6) 20 0-55 [facility] Centererum or plasma protein measurement (mass/volume)2020-04-23 04:45:00* Test Item Value Reference Range Interpretation Comments Total Protein (test code = 2885-2) 5.9 6.5-8.1 [facility] Centererum or plasma albumin measurement (mass/volume)2020-04-23 04:45:00* Test Item Value Reference Range Interpretation Comments Albumin (test code = 1751-7) 2.4 3.5-5.0 [facility] CenterPlasma globulin measurement (mass/volume) 2020-04-23 04:45:00* Test Item Value Reference Range Interpretation Comments Globulin (test code = 02881-2) 3.5 2.3-3.5 [facility] Centererum or plasma albumin/globulin mass phjty2612-40-83 04:45:00* Test Item Value Reference Range Interpretation Comments Albumin/Globulin Ratio (test code = 1759-0) 0.7 0.8-2.0 [facility] Centererum or plasma alkaline phosphatase measurement (enzymatic activity/volume)2020-04-23 04:45:00* Test Item Value Reference Range Interpretation Comments Alkaline Phosphatase (test code = 6768-6) 131 40-150 [facility] CenterG I FNMOQ8826-79-99 13:53:00 [facility] [address] [place], [place] [address] Patient Name: AMAURY CONTE MR #: [id number] : 1945 Age/Sex: 74/F Req #: [id number] [facility] Physician: HUE PETERSON MD Ordered by: GUILLERMO OLSON MD Report #: [id number] Location: MED/SURG2 Room/Bed: [facility] Procedure: NM/G I BLEED Exam Date: 04/22/20 [...] bleeding at this time. Signed by: Dr. Altaf Farah M.D. on 04/22/2020 1:58 PM Dictated By: TIARA FARAH MD [facility] Signed By: TIARA FARAH MD on 04/22/20 1358 Transcribed By: JUAN on 04/06 1358 COPY TO: GUILLERMO OLSON MD Activated partial thromboplastin time (aPTT) in platelet poor plasma by coagulation assay 2020-04-22 04:50:00* Test Item Value Reference Range Interpretation Comments Activated Partial Thromboplast Time (test code = 15601-2) 38.3 23.8-35.5 [facility] CenterAmmonia Exs-lXwt6046-26-06 04:50:00* Test Item Value Reference Range Interpretation Comments Ammonia (test code = 40757-6) 74 31-123 [facility] Centererum or plasma creatine kinase measurement (enzymatic activity/volume)2020-04-21 23:05:00* Test Item Value Reference Range Interpretation Comments Creatine Kinase (test code = 2157-6) 67 29-168 [facility] Centererum or plasma creatine kinase MB measurement (mass/volume)2020-04-21 23:05:00* Test Item Value Reference Range Interpretation Comments Creatine Kinase MB (test code = 39922-8) 0.80 0-5.0 [facility] CenterTroponin I measurement by highly sensitive enzyme kxbsfhhmzwi2060-13-88 23:05:00* Test Item Value Reference Range Interpretation Comments Troponin I (test code = 71641-1) 0.003 0-0.300 [facility] Centertool gastrointestinal hemoglobin vdavimtyb8915-71-44 15:00:00* Test Item Value Reference Range Interpretation Comments Stool Occult Blood (test code = 2335-8) POSITIVE NEGATIVE [facility] Centererum or plasma hepatitis A virus IgM antibody detection by dioagdaghig5674-71-44 09:30:00* Test Item Value Reference Range Interpretation Comments Hepatitis A IgM Antibody (test code = 34768-9) Negative Negativ e [facility] Centererum or plasma hepatitis B virus surface antigen detection by vsdsqsimcgh4881-77-51 09:30:00* Test Item Value Reference Range Interpretation Comments Hepatitis B Surface Antigen (test code = 5196-1) Negative Negat raudel [facility] Centererum or plasma hepatitis B virus core IgM antibody detection by fdcmdxnnjjl4793-87-25 09:30:00* Test Item Value Reference Range Interpretation Comments Hepatitis B Core IgM Antibody (test code = 81885-8) Negative Ne gative [facility] Centererum hepatitis C virus antibody jgktzydck1805-71-50 09:30:00* Test Item Value Reference Range Interpretation Comments Hepatitis C Antibody (test code = 29829-3) 0.1 0.0-0.9 Negative: < 0.8 Indeterminate: 0.8 - 0.9 Positive: > 0.9 The CDC recommends that a positive HCV antibody result be followed up with a HCV Nucleic Acid Amplification test (174519).Performed at: [facility] [address] [place] [id number] Director: Skip Garner MD, Phone: [phone] [facility] [place] [facility] HospitalCT [facility] SP[facility] VG9082-85-99 15:26:00 [facility] [address] [place] [address] Patient Name: AMAURY CONTE MR #: [id number] : 1945 Age/Sex: 74/F Req #: [id number] Adm Physician: Ordered by: NEL BONNER MD Report #: [id number] Location: ER Room/Bed: Procedure: [id number] CT/CT CERVICAL SPINE WO Exam Date: 04/20/20 [...] COPY TO: NEL JAMES MD CT BRAIN WW8292-24-79 14:37:[address] [place] [address] Patient Name: AMAURY CONTE MR #: [id number] : 1945 Age/Sex: 74/F Req #: [id number] Adm Physician: HUE PETERSON MD Ordered by: NEL BONNER MD Report #: [id number] Location: MED/SURG2 Room/Bed: 215 Procedure: [id number] CT/CT BRAIN WO Exam Date: 04/20/20 Exam [...] 2:46 PM Dictated By: SALMA LOVE MD 144 Transcribed By: JUAN on 04/20/20 1446 COPY TO: NEL BONNER MD CHEST SINGLE (PORTABLE) 2020-04-20 14:08:00 [place] [address] Patient Name: AMAURY CONTE MR #: [id number] : 1945 Age/Sex: 74/F Req #: [id number] Adm Physician: Ordered by: NEL BONNER MD Report #: [id number] Location: ER Room/Bed: Procedure: [id number] DX/CHEST SINGL E (PORTABLE) Exam Date: 04/20/20 Exam Time: 1350 REPORT STATUS: Signed EXAMINATION: CHEST SINGLE (PORTABLE) INDICATION: SOB, AMS [id number] COMPARISON: CT chest 04/08/2020 FINDINGS: AP [...] MD Fluoroscopic procedure less than one hour ssbnbtlw1889-89-78 13:00:00* Test Item Value Reference Range Interpretation Comments Lactic Acid Level (test code = Lactic Acid Level) 1.7 0.5- 2.0 [facility]ererum or plasma magnesium measurement (mass/volume)2020-04-20 13:00:00* Test Item Value Reference Range Interpretation Comments Magnesium Level (test code = 73912-8) 2.1 1.3-2.1 [facility]ererum or plasma triglyceride measurement (mass/volume)2020-04-20 13:00:00* Test Item Value Reference Range Interpretation Comments Triglycerides Level (test code = 2571-8) 86 0-149 [facility] Centererum or plasma cholesterol measurement (mass/volume)2020-04-20 13:00:00* Test Item Value Reference Range Interpretation Comments Cholesterol Level (test code = 2093-3) 72 0-199 Less than 200 mg/dL Low Fgaa886 - 239 mg/dL Borderline Ebpv313 m g/dl and greater High Risk [facility]ererum or plasma cholesterol in LDL measurement (mass/volume) 2020-04-20 13:00:00* Test Item Value Reference Range Interpretation Comments LDL Cholesterol (test code = 2089-1) 38 60-130 [facility] Centererum or plasma cholesterol in HDL measurement (mass/volume)2020-04-20 13:00:00* Test Item Value Reference Range Interpretation Comments HDL Cholesterol (test code = 2085-9) 17 40-60 [facility] Centererum or plasma total cholesterol/cholesterol in HDL mass jhmie5324-57-96 13:00:00* Test Item Value Reference Range Interpretation Comments Cholesterol/HDL Ratio (test code = 9830-1) 4.2 3.0-3.6 [facility] CenterBNP Iss-cHtu6782-49-04 13:00:00* Test Item Value Reference Range Interpretation Comments B-Type Natriuretic Peptide (test code = 89168-1) 205.9 0-100 [facility] CenterFluoroscopic procedure less than one hour txkrrixx8727-02-07 13:00:00* Test Item Value Reference Range Interpretation [...] 564(g) of the ACT.Testing performed by [facility] [place] [id number] [facility]illus Medical CenterBlood tcriptx3932-83-16 13:00:00* Test Item Value Reference Range Interpretation Comments Blood Culture (test code = 99980275) NO GROWTH AFTER 5 DAYS, FINAL REPORT [facility] CenterBacterial urine oybeegq3011-12-47 13:00:00* Test Item Value Reference Range Interpretation Comments Urine Culture (test code = 630-4) ESCHERICHIA COLI [facility] CenterP LUMBAR, COMPLETE MIN 8PZ3377-54-57 23:47:00 [facility] [address] [place] [address] Patient Name: AMAURY CONTE MR #: [id number] : 1945 Age/Sex: 74/F Req #: [id number] Adm Physician: Ordered by: SHANKAR NEWMAN DO Report #: [id number] Location: ER Room/Bed: Procedure: [id number] DX/SP LUMBA R, COMPLETE MIN 4VW Exam [...] 11:49 PM Dictated By: BRANDEN DASILVA MD [id number] Transcribed By: JUAN on 04/19/20 5892 COPY TO: SHANKAR NEWMAN DO THORACIC SP 3X6313-97-12 23:47:00 [place] [address] Patient Name: AMAURY CONTE MR #: [id number] : 1945 Age/Sex: 74/F Req #: [id number] Adm Physician: Ordered by: SHANKAR NEWMAN DO Report #: [id number] Location: [facility]/Bed: Procedure: [id number] DX/THORACIC SP 3V Exam Date: 04/19/20 Exam [...] 49 PM Dictated By: BRANDEN DASILVA MD 0503 Transcribed By: JUAN on 04/19/202348 COPY T O: SHANKAR NEWMAN DO Prothrombin time (PT) in platelet poor plasma by coagulation aoqyy4395-95-71 11:45:00* Test Item Value Reference Range Interpretation Comments Prothrombin Time (test code = 5902-2) 20.5 11.9-14.5 [facility] CenterINR in Platelet poor plasma by Coagulation xpiuo3455-59-10 11:45:00* Test Item Value Reference Range Interpretation Comments Prothromb Time International Ratio (test code = 6301-6) 1.63 Oral Anticoagulant Therapy INR Values:1. Low Intensity Therapy 1.5 - 2.02 . Moderate Intensity Therapy 2.0 - 3.03. High Intensity Therapy(1) 2.5 - 3. 54. High Intensity Therapy(2) 3.0 - 4.05. Panic Value INR > 5.0 [facility] CenterProthrombin time (PT) in platelet poor plasma by coagulation otoxc6723-69-84 11:45:00* Test Item Value Reference Range Interpretation Comments Prothrombin Time (test code = 5902-2) 20.5 11.9-14.5 [facility] CenterINR in Platelet poor plasma by Coagulation orqfm0707-42-75 11:45:00* Test Item Value Reference Range Interpretation Comments Prothromb Time International Ratio (test code = 6301-6) 1.63 Oral Anticoagulant Therapy INR Values:1. Low Intensity Therapy 1.5 - 2.02 . Moderate Intensity Therapy 2.0 - 3.03. High Intensity Therapy(1) 2.5 - 3. 54. High Intensity Therapy(2) 3.0 - 4.05. Panic Value INR > 5.0 [facility] CenterCapillary blood glucose measurement by glucometer (mass/volume)2020-04-09 07:16:00* Test Item Value Reference Range Interpretation Comments Bedside Glucose (test code = 39567-0) 99 70-120 Meter ID: [id number] Camillus Medical CenterCapillary blood glucose measurement by glucometer (mass/volume)2020-04-09 07:16:00* Test Item Value Reference Range Interpretation Comments Bedside Glucose (test code = 50264-6) 99 70-120 Meter ID: [id number] [facility]illus Medical CenterBlood leukocytes automated count (number/volume)2020-04-09 05:40:00* Test Item Value Reference Range Interpretation Comments White Blood Count (test code = 6690-2) 4.39 4.8-10.8 [facility] CenterBlood erythrocytes automated count (number/volume)2020-04-09 05:40:00* Test Item Value Reference Range Interpretation Comments Red Blood Count (test code = 789-8) 2.55 3.6-5.1 [facility] CenterBlood hemoglobin measurement (moles/volume)2020-04-09 05:40:00* Test Item Value Reference Range Interpretation Comments Hemoglobin (test code = 79315-8) 8.2 12.0-16.0 [facility] CenterAutomated blood hematocrit (volume fraction)2020-04-09 05:40:00* Test Item Value Reference Range Interpretation Comments Hematocrit (test code = 4544-3) 27.0 34.2-44.1 [facility] CenterAutomated erythrocyte mean corpuscular wjqqxr8581-40-90 05:40:00* Test Item Value Reference Range Interpretation Comments Mean Corpuscular Volume (test code = 787-2) 105.9 81-99 [facility] CenterAutomated erythrocyte mean corpuscular hemoglobin (mass per erythrocyte)2020-04-09 05:40:00* Test Item Value Reference Range Interpretation Comments Mean Corpuscular Hemoglobin (test code = 785-6) 32.2 28-32 [facility] CenterAutomated erythrocyte mean corpuscular hemoglobin concentration measurement (mass/volume)2020-04-09 05:40:00* Test Item Value Reference Range Interpretation Comments Mean Corpuscular Hemoglobin Concent (test code = 786-4) 30.4 31-35 [facility] CenterRDW LtlWa-Xfl5460-60-23 05:40:00* Test Item Value Reference Range Interpretation Comments Red Cell Distribution Width (test code = 60760-0) 21.6 11.7 -14.4 [facility] CenterAutomated blood platelet count (count/volume)2020-04-09 05:40:00* Test Item Value Reference Range Interpretation Comments Platelet Count (test code = 777-3) 133 140-360 [facility] CenterAutomated blood segmented neutrophil count as percentage of total kzawhkivgy5863-04-40 05:40:00* Test Item Value Reference Range Interpretation Comments Neutrophils (%) (Auto) (test code = 08691-3) 50.8 38.7-80.0 [facility] CenterAutomated blood lymphocyte count as percentage ot total xycwfibcpw3560-68-43 05:40:00* Test Item Value Reference Range Interpretation Comments Lymphocytes (%) (Auto) (test code = 736-9) 26.7 18.0-39.1 [facility] CenterAutomated blood monocyte count as percentage of total mrkqakrkrb1708-44-14 05:40:00* Test Item Value Reference Range Interpretation Comments Monocytes (%) (Auto) (test code = 5905-5) 15.7 4.4-11.3 [facility] CenterAutnovant health medical park hospitaled blood eosinophil count as percentage of total ymcjasesex7240-04-41 05:40:00* Test Item Value Reference Range Interpretation Comments Eosinophils (%) (Auto) (test code = 713-8) 5.9 0.0-6.0 [facility] CenterAutomated blood basophil count as percentage of total gtynfhqvsy2188-42-33 05:40:00* Test Item Value Reference Range Interpretation Comments Basophils (%) (Auto) (test code = 706-2) 0.7 0.0-1.0 [facility] CenterFluoroscopic procedure less than one hour ectdywtf5520-92-74 05:40:00* Test Item Value Reference Range Interpretation Comments IM GRANULOCYTES % (test code = IM GRANULOCYTES %) 0.2 0.0- 1.0 [facility] CenterAutomated blood neutrophil count 2020-04-09 05:40:00* Test Item Value Reference Range Interpretation Comments Neutrophils # (Auto) (test code = 751-8) 2.2 2.1-6.9 [facility] CenterBlood lymphocytes count (number/volume) 2020-04-09 05:40:00* Test Item Value Reference Range Interpretation Comments Lymphocytes # (Auto) (test code = 75224-0) 1.2 1.0-3.2 [facility] CenterBlood monocytes automated count (number/volume)2020-04-09 05:40:00* Test Item Value Reference Range Interpretation Comments Monocytes # (Auto) (test code = 742-7) 0.7 0.2-0.8 [facility] CenterAutomated blood eosinophil count 2020-04-09 05:40:00* Test Item Value Reference Range Interpretation Comments Eosinophils # (Auto) (test code = 711-2) 0.3 0.0-0.4 [facility] CenterAutomated blood basophil count (count/volume)2020-04-09 05:40:00* Test Item Value Reference Range Interpretation Comments Basophils # (Auto) (test code = 704-7) 0.0 0.0-0.1 [facility] CenterFluoroscopic procedure less than one hour ydlsznyc9437-94-85 05:40:00* Test Item Value Reference Range Interpretation Comments Absolute Immature Granulocyte (auto (lyssa t code = Absolute Immature Granulocyte (auto) 0.01 0-0.1 [facility]ererum or plasma sodium measurement (moles/volume)2020-04-09 05:40:00* Test Item Value Reference Range Interpretation Comments Sodium Level (test code = 2951-2) 149 136-145 [facility] Centererum or plasma potassium measurement (moles/volume)2020-04-09 05:40:00* Test Item Value Reference Range Interpretation Comments Potassium Level (test code = 2823-3) 3.9 3.5-5.1 [facility] Centererum or plasma chloride measurement (moles/volume)2020-04-09 05:40:00* Test Item Value Reference Range Interpretation Comments Chloride Level (test code = 2075-0) 121 98-107 [facility] Centererum or plasma carbon dioxide, total measurement (moles/volume)2020-04-09 05:40:00* Test Item Value Reference Range Interpretation Comments Carbon Dioxide Level (test code = 2028-9) 23 22-29 [facility] Centererum or plasma anion kbx0425-15-18 05:40:00* Test Item Value Reference Range Interpretation Comments Anion Gap (test code = 12151-4) 8.9 8-16 [facility] Centererum or plasma urea nitrogen measurement (mass/volume)2020-04-09 05:40:00* Test Item Value Reference Range Interpretation Comments Blood Urea Nitrogen (test code = 3094-0) 32 7-26 [facility] Centererum or plasma creatinine measurement (mass/volume)2020-04-09 05:40:00* Test Item Value Reference Range Interpretation Comments Creatinine (test code = 2160-0) 1.23 0.57-1.11 [facility] Centererum or plasma urea nitrogen/creatinine mass byhsz9706-06-73 05:40:00* Test Item Value Reference Range Interpretation Comments BUN/Creatinine Ratio (test code = 3097-3) 26 6-25 [facility] CenterEstimated glomerular filtration rate (GFR) sjwbahmgxwlju2511-26-67 05:40:00* Test Item Value Reference Range Interpretation Comments Estimat Glomerular Filtration Rate (test code = 909814685) 43 >60 Ranges were taken from the National Kidney Disease Education Program and the [facility] literature.Reference ranges:60 or greater: Ikiyfm48-59 ( for 3 consecutive months): Chronic kidney disease 15 or less: Kidney failureSaint [facility]illus Medical CenterGlucose tvwbucjpkxf4505-89-80 05:40:00* Test Item Value Reference Range Interpretation Comments Glucose Level (test code = PCX9388) 92 74-118 [facility] Centererum or plasma calcium measurement (mass/volume)2020-04-09 05:40:00* Test Item Value Reference Range Interpretation Comments Calcium Level (test code = 87670-5) 8.3 8.4-10.2 [facility] Centererum or plasma magnesium measurement (mass/volume)2020-04-09 05:40:00* Test Item Value Reference Range Interpretation Comments Magnesium Level (test code = 08906-2) 2.0 1.3-2.1 [facility] Centererum or plasma total bilirubin measurement (mass/volume)2020-04-09 05:40:00* Test Item Value Reference Range Interpretation Comments Total Bilirubin (test code = 1975-2) 1.5 0.2-1.2 [facility] CenterFluoroscopic procedure less than one hour peqqgpsx2711-82-88 05:40:00* Test Item Value Reference Range Interpretation Comments Aspartate Amino Transf (AST/SGOT) (test code = Aspartate Amino Transf (AST/SGOT)) 63 5-34 [facility] Centererum or plasma alanine aminotransferase measurement (enzymatic activity/volume)2020-04-09 05:40:00* Test Item Value Reference Range Interpretation Comments Alanine Aminotransferase (ALT/SGPT) (test code = 1742-6) 27 0-55 [facility] CenterAmmonia Heo-uVtq8137-67-23 05:40:00* Test Item Value Reference Range Interpretation Comments Ammonia (test code = 01188-0) 84 31-123 [facility] Centererum or plasma protein measurement (mass/volume)2020-04-09 05:40:00* Test Item Value Reference Range Interpretation Comments Total Protein (test code = 2885-2) 5.5 6.5-8.1 [facility] Centererum or plasma albumin measurement (mass/volume)2020-04-09 05:40:00* Test Item Value Reference Range Interpretation Comments Albumin (test code = 1751-7) 2.4 3.5-5.0 [facility] CenterPlasma globulin measurement (mass/volume) 2020-04-09 05:40:00* Test Item Value Reference Range Interpretation Comments Globulin (test code = 90254-5) 3.1 2.3-3.5 [facility] Centererum or plasma albumin/globulin mass msrpc2640-64-27 05:40:00* Test Item Value Reference Range Interpretation Comments Albumin/Globulin Ratio (test code = 1759-0) 0.8 0.8-2.0 [facility] Centererum or plasma alkaline phosphatase measurement (enzymatic activity/volume)2020-04-09 05:40:00* Test Item Value Reference Range Interpretation Comments Alkaline Phosphatase (test code = 6768-6) 134 40-150 [facility] CenterBlood leukocytes automated count (number/volume)2020-04-09 05:40:00* Test Item Value Reference Range Interpretation Comments White Blood Count (test code = 6690-2) 4.39 4.8-10.8 [facility] CenterBlood erythrocytes automated count (number/volume)2020-04-09 05:40:00* Test Item Value Reference Range Interpretation Comments Red Blood Count (test code = 789-8) 2.55 3.6-5.1 [facility] CenterBlst. [facility] hemoglobin measurement (moles/volume)2020-04-09 05:40:00* Test Item Value Reference Range Interpretation Comments Hemoglobin (test code = 68912-0) 8.2 12.0-16.0 [facility] CenterAutomated blood hematocrit (volume fraction)2020-04-09 05:40:00* Test Item Value Reference Range Interpretation Comments Hematocrit (test code = 4544-3) 27.0 34.2-44.1 [facility] CenterAutomated erythrocyte mean corpuscular ssvrag4909-21-26 05:40:00* Test Item Value Reference Range Interpretation Comments Mean Corpuscular Volume (test code = 787-2) 105.9 81-99 [facility] CenterAutomated erythrocyte mean corpuscular hemoglobin (mass per erythrocyte)2020-04-09 05:40:00* Test Item Value Reference Range Interpretation Comments Mean Corpuscular Hemoglobin (test code = 785-6) 32.2 28-32 [facility] CenterAutomated erythrocyte mean corpuscular hemoglobin concentration measurement (mass/volume)2020-04-09 05:40:00* Test Item Value Reference Range Interpretation Comments Mean Corpuscular Hemoglobin Concent (test code = 786-4) 30.4 31-35 [facility] CenterRDW HfaYn-Vtr7703-75-23 05:40:00* Test Item Value Reference Range Interpretation Comments Red Cell Distribution Width (test code = 48668-1) 21.6 11.7 -14.4 [facility] CenterAutomated blood platelet count (count/volume)2020-04-09 05:40:00* Test Item Value Reference Range Interpretation Comments Platelet Count (test code = 777-3) 133 140-360 [facility] CenterAutnovant health medical park hospitaled blood segmented neutrophil count as percentage of total vrrnnvcuie4522-31-67 05:40:00* Test Item Value Reference Range Interpretation Comments Neutrophils (%) (Auto) (test code = 68223-1) 50.8 38.7-80.0 [facility] CenterAutomated blood lymphocyte count as percentage ot total qiolukvnij0389-38-23 05:40:00* Test Item Value Reference Range Interpretation Comments Lymphocytes (%) (Auto) (test code = 736-9) 26.7 18.0-39.1 [facility] CenterAutomated blood monocyte count as percentage of total aedyebyiak9369-69-50 05:40:00* Test Item Value Reference Range Interpretation Comments Monocytes (%) (Auto) (test code = 5905-5) 15.7 4.4-11.3 [facility] CenterAutomated blood eosinophil count as percentage of total gjxnteyrmt5721-40-52 05:40:00* Test Item Value Reference Range Interpretation Comments Eosinophils (%) (Auto) (test code = 713-8) 5.9 0.0-6.0 [facility] CenterAutomated blood basophil count as percentage of total owdrtrxqsw0229-62-16 05:40:00* Test Item Value Reference Range Interpretation Comments Basophils (%) (Auto) (test code = 706-2) 0.7 0.0-1.0 [facility] CenterFluoroscopic procedure less than one hour ijagkext4584-27-44 05:40:00* Test Item Value Reference Range Interpretation Comments IM GRANULOCYTES % (test code = IM GRANULOCYTES %) 0.2 0.0- 1.0 [facility] CenterAutomated blood neutrophil count 2020-04-09 05:40:00* Test Item Value Reference Range Interpretation Comments Neutrophils # (Auto) (test code = 751-8) 2.2 2.1-6.9 [facility] CenterBlood lymphocytes count (number/volume) 2020-04-09 05:40:00* Test Item Value Reference Range Interpretation Comments Lymphocytes # (Auto) (test code = 27940-9) 1.2 1.0-3.2 [facility] CenterBlst[facility] monocytes automated count (number/volume)2020-04-09 05:40:00* Test Item Value Reference Range Interpretation Comments Monocytes # (Auto) (test code = 742-7) 0.7 0.2-0.8 [facility] CenterAutomated blood eosinophil count 2020-04-09 05:40:00* Test Item Value Reference Range Interpretation Comments Eosinophils # (Auto) (test code = 711-2) 0.3 0.0-0.4 [facility] CenterAutomated blood basophil count (count/volume)2020-04-09 05:40:00* Test Item Value Reference Range Interpretation Comments Basophils # (Auto) (test code = 704-7) 0.0 0.0-0.1 [facility] CenterFluoroscopic procedure less than one hour krjgnbtl3924-82-31 05:40:00* Test Item Value Reference Range Interpretation Comments Absolute Immature Granulocyte (auto (lyssa t code = Absolute Immature Granulocyte (auto) 0.01 0-0.1 [facility] Centererum or plasma sodium measurement (moles/volume)2020-04-09 05:40:00* Test Item Value Reference Range Interpretation Comments Sodium Level (test code = 2951-2) 149 136-145 [facility] Centererum or plasma potassium measurement (moles/volume)2020-04-09 05:40:00* Test Item Value Reference Range Interpretation Comments Potassium Level (test code = 2823-3) 3.9 3.5-5.1 [facility] Centererum or plasma chloride measurement (moles/volume)2020-04-09 05:40:00* Test Item Value Reference Range Interpretation Comments Chloride Level (test code = 2075-0) 121 98-107 [facility] Centererum or plasma carbon dioxide, total measurement (moles/volume)2020-04-09 05:40:00* Test Item Value Reference Range Interpretation Comments Carbon Dioxide Level (test code = 2028-9) 23 22-29 [facility] Centererum or plasma anion amf5018-37-80 05:40:00* Test Item Value Reference Range Interpretation Comments Anion Gap (test code = 71133-5) 8.9 8-16 [facility]ererum or plasma urea nitrogen measurement (mass/volume)2020-04-09 05:40:00* Test Item Value Reference Range Interpretation Comments Blood Urea Nitrogen (test code = 3094-0) 32 7-26 [facility] Centererum or plasma creatinine measurement (mass/volume)2020-04-09 05:40:00* Test Item Value Reference Range Interpretation Comments Creatinine (test code = 2160-0) 1.23 0.57-1.11 [facility] Centererum or plasma urea nitrogen/creatinine mass mfebc1182-92-10 05:40:00* Test Item Value Reference Range Interpretation Comments BUN/Creatinine Ratio (test code = 3097-3) 26 6-25 [facility] CenterEstimated glomerular filtration rate (GFR) knzcqiuzzhrkr2620-35-27 05:40:00* Test Item Value Reference Range Interpretation Comments Estimat Glomerular Filtration Rate (test code = 533046624) 43 >60 Ranges were taken from the National Kidney Disease Education Program and the [facility] literature.Reference ranges:60 or greater: Dfbzyf04-14 ( for 3 consecutive months): Chronic kidney disease 15 or less: Kidney failureSaint [facility] Medical CenterGlucose qxzevmczjtq0258-12-52 05:40:00* Test Item Value Reference Range Interpretation Comments Glucose Level (test code = CCK1977) 92 74-118 [facility] Centererum or plasma calcium measurement (mass/volume)2020-04-09 05:40:00* Test Item Value Reference Range Interpretation Comments Calcium Level (test code = 30513-7) 8.3 8.4-10.2 [facility] Centererum or plasma magnesium measurement (mass/volume)2020-04-09 05:40:00* Test Item Value Reference Range Interpretation Comments Magnesium Level (test code = 18215-9) 2.0 1.3-2.1 [facility] Centererum or plasma total bilirubin measurement (mass/volume)2020-04-09 05:40:00* Test Item Value Reference Range Interpretation Comments Total Bilirubin (test code = 1975-2) 1.5 0.2-1.2 [facility] CenterFluoroscopic procedure less than one hour ecyodrus1145-76-83 05:40:00* Test Item Value Reference Range Interpretation Comments Aspartate Amino Transf (AST/SGOT) (test code = Aspartate Amino Transf (AST/SGOT)) 63 5-34 [facility] Centererum or plasma alanine aminotransferase measurement (enzymatic activity/volume)2020-04-09 05:40:00* Test Item Value Reference Range Interpretation Comments Alanine Aminotransferase (ALT/SGPT) (test code = 1742-6) 27 0-55 [facility] CenterAmmonia Xog-yMbq7155-96-23 05:40:00* Test Item Value Reference Range Interpretation Comments Ammonia (test code = 44180-3) 84 31-123 [facility] Centererum or plasma protein measurement (mass/volume)2020-04-09 05:40:00* Test Item Value Reference Range Interpretation Comments Total Protein (test code = 2885-2) 5.5 6.5-8.1 [facility] Centererum or plasma albumin measurement (mass/volume)2020-04-09 05:40:00* Test Item Value Reference Range Interpretation Comments Albumin (test code = 1751-7) 2.4 3.5-5.0 [facility] CenterPlasma globulin measurement (mass/volume) 2020-04-09 05:40:00* Test Item Value Reference Range Interpretation Comments Globulin (test code = 51141-5) 3.1 2.3-3.5 [facility] Centererum or plasma albumin/globulin mass wdubu4045-63-05 05:40:00* Test Item Value Reference Range Interpretation Comments Albumin/Globulin Ratio (test code = 1759-0) 0.8 0.8-2.0 [facility] Centererum or plasma alkaline phosphatase measurement (enzymatic activity/volume)2020-04-09 05:40:00* Test Item Value Reference Range Interpretation Comments Alkaline Phosphatase (test code = 6768-6) 134 40-150 [facility] CenterCTA YOZGD8410-18-47 22:17:00 [facility] [address] [address] Patient Name: AMAURY CONTE MR #: [id number] : 1945 [facility] 74[id number] Req #: [id number] Adm Physician: HUE PETERSON MD Ordered by: Lawanda Cook NP Report #: [id number] Location: [facility] Room/Bed: [facility] Procedure: [id number] CT/CTA BRAIN Exam Date: 04/08/20 Exam Time: [...] as a percentag e relative to the ute artery distal to the stenosis (NASCET). Streak [...] 10:35 PM Dictated By: SANDOVAL GONZALEZ MD [id number] Transcribed By: JUAN on 04/08/20 2 235 COPY TO: LAWANDA COOK NP CTA FEBY5125-33-04 22:17:00 [address] [address] Patient Name: AMAURY CONTE MR #: [id number] : 1945 Age/Sex: 74/F Req #: [id number] Adm Physician: HUE PETERSON MD Ordered by: Lawanda Cook LAUNDRY EQUIPMENT OPERATOR Report #: [id number] Location: MED/SURG3 Room/Bed: [facility] Procedure: [id number] CT/CTA NECK Exam Date: 04/08/20 Exam Time: [...] measured as a percentage relative to the ute artery distal to the stenosis (NASCET). Streak [...] isconsidered to represent cl inical deficiency.Performed at: [facility] [address] [id number] Director: Skip Garner MD, Phone: [phone] Bend Regional Medical Centererum or plasma folate measurement (mass/volume) 2020-04-08 17:10:00* Test Item Value Reference Range Interpretation Comments Folate (test code = 2284-8) 18.4 >3.0 A serum folate concentration of less than 3.1 ng/mL isconsidered to represent cl inical deficiency.Performed at: [facility] [address] [id number] Director: Skip Garner MD, Phone: [phone]. [facility] gastrointestinal hemoglobin jipfegtss7391-37-62 16:40:00* Test Item Value Reference Range Interpretation Comments Stool Occult Blood (test code = 2335-8) POSITIVE NEGATIVE [facility] gastrointestinal hemoglobin itzkduuxu0429-01-26 16:40:00* Test Item Value Reference Range Interpretation Comments Stool Occult Blood (test code = 2335-8) POSITIVE NEGATIVE [facility] CenterUS NAUNU9093-62-42 10:49:[address], [place], [place] [address] Patient Name: AMAURY CONTE MR #: [id number] : 1945 Age/Sex: 74/F Req #: [id number] Adm Physician: HUE PETERSON MD Ordered by: Lawanda Cook NP Report #: [id number] Location: MED/SURG3 Room/Bed: [facility] Procedure: [id number] US/US LIVER Exam Date: 04/08/20 Exam Time: [...] COPY TO: LAWANDA COOK NP CT CHEST DK6518-75-73 09:45:00 [place] [address] Patient Name: AMAURY CONTE MR #: [id number] : 1945 Age/Sex: 74/F Req #: [id number] Adm Physician: HUE PETERSON MD Ordered by: Lawanda Cook LAUNDRY EQUIPMENT OPERATOR Re port #: [id number] [facility] Procedure: [id number] CT/CT CHEST W O Exam Date: 04/08/20 [...] Interpretation Comments Platelet Estimate (test code = 37134-6) ADEQUATE [facility] CenterPlatelet knyghmfawn4752-89-86 05:20:00* Test Item Value Reference Range Interpretation Comments Platelet Morphology Comment (test code = 93930-4) NORMAL [facility] CenterBlood polychromasia detection by light vmurekaxso6127-87-95 05:20:00* Test Item Value Reference Range Interpretation Comments Polychromasia (test code = 97021-0) FEW [facility] CenterBlood anisocytosis detection by light farzawodgi3230-43-01 05:20:00* Test Item Value Reference Range Interpretation Comments Anisocytosis (test code = 702-1) MODERATE [facility] CenterBlood macrocytes detection by light gxnquxqyxi6529-75-53 05:20:00* Test Item Value Reference Range Interpretation Comments Macrocytosis (test code = 738-5) MODERATE [facility] CenterBlood ovalocytes detection by light sjoxsrgpma4085-57-37 05:20:00* Test Item Value Reference Range Interpretation Comments Ovalocytes (test code = 774-0) FEW [facility] CenterRBC oglxkmuppi7381-36-85 05:20:00* Test Item Value Reference Range Interpretation Comments Red Cell Morphology Comment (test code = 6742-1) ABNORMAL [facility] CenterAutomated reticulocyte count as percentage of total xpacopmwujlb6608-27-70 05:20:00* Test Item Value Reference Range Interpretation Comments Percent Reticulocyte Count (test code = 52829-5) 5.7 0.8-2 .2 [facility] CenterFluoroscopic procedure less than one hour brrdxyif3619-37-31 05:20:00* Test Item Value Reference Range Interpretation Comments Hemoglobin A1c Percent (test code = Hemoglobin A1c Percent) 5.2 4.0-7.0 [facility] Centererum or plasma iron measurement (mass/volume)2020-04-08 05:20:00* Test Item Value Reference Range Interpretation Comments Iron Level (test code = 2498-4) 62 50-170 [facility] Centererum or plasma iron binding capacity measurement (mass/volume)2020-04-08 05:20:00* Test Item Value Reference Range Interpretation Comments Total Iron Binding Capacity (test code = 2500-7) 413 261-4 78 [facility] Centererum or plasma iron saturation measurement (mass fraction)2020-04-08 05:20:00* Test Item Value Reference Range Interpretation Comments Percent Iron Saturation (test code = 2502-3) 15 15-50 [facility] Centererum or plasma transferrin measurement (mass/volume)2020-04-08 05:20:00* Test Item Value Reference Range Interpretation Comments Transferrin (test code = 3034-6) 295 180-382 [facility] Centererum or plasma triglyceride measurement (mass/volume)2020-04-08 05:20:00* Test Item Value Reference Range Interpretation Comments Triglycerides Level (test code = 2571-8) 76 0-149 [facility] Centererum or plasma cholesterol measurement (mass/volume)2020-04-08 05:20:00* Test Item Value Reference Range Interpretation Comments Cholesterol Level (test code = 2093-3) 80 0-199 Less than 200 mg/dL Low Wqey287 - 239 mg/dL Borderline Khuf976 m g/dl and greater High Risk [facility] Centererum or plasma cholesterol in LDL measurement (mass/volume) 2020-04-08 05:20:00* Test Item Value Reference Range Interpretation Comments LDL Cholesterol (test code = 2089-1) 48 60-130 [facility] Centererum or plasma cholesterol in HDL measurement (mass/volume)2020-04-08 05:20:00* Test Item Value Reference Range Interpretation Comments HDL Cholesterol (test code = 2085-9) 17 40-60 [facility] Centererum or plasma total cholesterol/cholesterol in HDL mass iikzj5903-30-33 05:20:00* Test Item Value Reference Range Interpretation Comments Cholesterol/HDL Ratio (test code = 9830-1) 4.7 3.0-3.6 [facility] Centererum or plasma creatine kinase measurement (enzymatic activity/volume)2020-04-08 05:20:00* Test Item Value Reference Range Interpretation Comments Creatine Kinase (test code = 2157-6) 56 29-168 [facility] Centererum or plasma creatine kinase MB measurement (mass/volume)2020-04-08 05:20:00* Test Item Value Reference Range Interpretation Comments Creatine Kinase MB (test code = 20772-9) 1.30 0-5.0 [facility] CenterTroponin I measurement by highly sensitive enzyme pbirwglnxvc4386-05-24 05:20:00* Test Item Value Reference Range Interpretation Comments Troponin I (test code = 59493-6) 0.017 0-0.300 [facility] CenterBlood cobalamin (vitamin B12) measurement (mass/volume)2020-04-08 05:20:00* Test Item Value Reference Range Interpretation Comments Vitamin B12 Level (test code = 99661-0) > 2000 213-816 [facility] CenterBlood platelets count by estimate (number/volume)2020-04-08 05:20:00* Test Item Value Reference Range Interpretation Comments Platelet Estimate (test code = 57776-0) ADEQUATE [facility] CenterPlatelet gincxqimnk9567-37-14 05:20:00* Test Item Value Reference Range Interpretation Comments Platelet Morphology Comment (test code = 20148-7) NORMAL [facility] CenterBlood polychromasia detection by light rnoshtwudr1736-75-63 05:20:00* Test Item Value Reference Range Interpretation Comments Polychromasia (test code = 93021-5) FEW [facility] CenterBlood anisocytosis detection by light xsbcgwfbvx1420-26-32 05:20:00* Test Item Value Reference Range Interpretation Comments Anisocytosis (test code = 702-1) MODERATE [facility] CenterBlood macrocytes detection by light kqltemnnka4599-17-20 05:20:00* Test Item Value Reference Range Interpretation Comments Macrocytosis (test code = 738-5) MODERATE [facility] CenterBlood ovalocytes detection by light dpeputgxtw2244-90-97 05:20:00* Test Item Value Reference Range Interpretation Comments Ovalocytes (test code = 774-0) FEW [facility] CenterRBC tpeejtyrkj8460-32-26 05:20:00* Test Item Value Reference Range Interpretation Comments Red Cell Morphology Comment (test code = 6742-1) ABNORMAL [facility] CenterAutomated reticulocyte count as percentage of total gsrjioxjhbbk0285-12-10 05:20:00* Test Item Value Reference Range Interpretation Comments Percent Reticulocyte Count (test code = 82913-9) 5.7 0.8-2 .2 [facility] CenterFluoroscopic procedure less than one hour mnswpjja0491-88-98 05:20:00* Test Item Value Reference Range Interpretation Comments Hemoglobin A1c Percent (test code = Hemoglobin A1c Percent) 5.2 4.0-7.0 [facility]ererum or plasma iron measurement (mass/volume)2020-04-08 05:20:00* Test Item Value Reference Range Interpretation Comments Iron Level (test code = 2498-4) 62 50-170 [facility] Centererum or plasma iron binding capacity measurement (mass/volume)2020-04-08 05:20:00* Test Item Value Reference Range Interpretation Comments Total Iron Binding Capacity (test code = 2500-7) 413 261-4 78 [facility] Centererum or plasma iron saturation measurement (mass fraction)2020-04-08 05:20:00* Test Item Value Reference Range Interpretation Comments Percent Iron Saturation (test code = 2502-3) 15 15-50 [facility] Centererum or plasma transferrin measurement (mass/volume)2020-04-08 05:20:00* Test Item Value Reference Range Interpretation Comments Transferrin (test code = 3034-6) 295 180-382 [facility] Centererum or plasma triglyceride measurement (mass/volume)2020-04-08 05:20:00* Test Item Value Reference Range Interpretation Comments Triglycerides Level (test code = 2571-8) 76 0-149 [facility] Centererum or plasma cholesterol measurement (mass/volume)2020-04-08 05:20:00* Test Item Value Reference Range Interpretation Comments Cholesterol Level (test code = 2093-3) 80 0-199 Less than 200 mg/dL Low Kcvp242 - 239 mg/dL Borderline Nbpm447 m g/dl and greater High Risk [facility] Centererum or plasma cholesterol in LDL measurement (mass/volume) 2020-04-08 05:20:00* Test Item Value Reference Range Interpretation Comments LDL Cholesterol (test code = 2089-1) 48 60-130 [facility] Centererum or plasma cholesterol in HDL measurement (mass/volume)2020-04-08 05:20:00* Test Item Value Reference Range Interpretation Comments HDL Cholesterol (test code = 2085-9) 17 40-60 [facility] Centererum or plasma total cholesterol/cholesterol in HDL mass pcqry3700-30-33 05:20:00* Test Item Value Reference Range Interpretation Comments Cholesterol/HDL Ratio (test code = 9830-1) 4.7 3.0-3.6 [facility] Centererum or plasma creatine kinase measurement (enzymatic activity/volume)2020-04-08 05:20:00* Test Item Value Reference Range Interpretation Comments Creatine Kinase (test code = 2157-6) 56 29-168 [facility] Centererum or plasma creatine kinase MB measurement (mass/volume)2020-04-08 05:20:00* Test Item Value Reference Range Interpretation Comments Creatine Kinase MB (test code = 55615-1) 1.30 0-5.0 [facility] CenterTroponin I measurement by highly sensitive enzyme hjwvjvbpvvd1768-28-50 05:20:00* Test Item Value Reference Range Interpretation Comments Troponin I (test code = 66741-6) 0.017 0-0.300 [facility] CenterBlst[facility] cobalamin (vitamin B12) measurement (mass/volume)2020-04-08 05:20:00* Test Item Value Reference Range Interpretation Comments Vitamin B12 Level (test code = 35768-0) > 2000 213-816 [facility] CenterBlood ovalocytes detection by light clqlaplgvd3674-56-63 05:20:00* Test Item Value Reference Range Interpretation Comments Ovalocytes (test code = 774-0) FEW [facility] CenterFluoroscopic procedure less than one hour hdiojcaj4097-35-05 05:20:00* Test Item Value Reference Range Interpretation Comments Hemoglobin A1c Percent (test code = Hemoglobin A1c Percent) 5.2 4.0-7.0 [facility] CenterFluoroscopic procedure less than one hour mmvbivsx9618-27-14 14:27:00* Test Item Value Reference Range Interpretation [...] complexity tests.Testing performed by [facility] [id number] [place], [place] [phone] Director: Harmeet Chu M.D.CLIA # [id number] [facility] SINGLE (PORTABLE)2020-04-07 12:54:00 [place] [address] Patient Name: AMAURY CONTE MR #: [id number] : 1945 Age/Sex: 74/F Req #: [id number] Adm Physician: Ordered by: NEL BONNER MD Report #: [id number] Location: ER Room/Bed: Procedure: [id number] DX/CHEST SINGL E (PORTABLE) Exam Date: 04/07/20 [...] COPY TO: NEL BONNER MD Urine color acjqlgikdzjwo4803-16-47 12:25:00* Test Item Value Reference Range Interpretation Comments Urine Color (test code = 5778-6) YELLOW YELLOW [facility] CenterUrine hrqquyt3357-23-87 12:25:00* Test Item Value Reference Range Interpretation Comments Urine Clarity (test code = 63907-4) CLEAR CLEAR [facility] Centerpecific gravity of Urine by Test strip 2020-04-07 12:25:00* Test Item Value Reference Range Interpretation Comments Urine Specific [place] (test code = 5811-5) 1.025 1.010-1.02 5 [facility] CenterUrine pH measurement by automated test wgjub0421-08-14 12:25:00* Test Item Value Reference Range Interpretation Comments Urine pH (test code = 60184-8) 6.5 5-7 [facility] CenterUrine leukocyte esterase detection by vzrintrb8503-07-89 12:25:00* Test Item Value Reference Range Interpretation Comments Urine Leukocyte Esterase (test code = 5799-2) NEGATIVE NEGATIVE [facility] CenterUrine nitrite vpdrmvxcp5593-91-49 12:25:00* Test Item Value Reference Range Interpretation Comments Urine Nitrite (test code = 15914-5) NEGATIVE NEGATIVE [facility] CenterUrine protein measurement by test strip (mass/volume)2020-04-07 12:25:00* Test Item Value Reference Range Interpretation Comments Urine Protein (test code = 5804-0) NEGATIVE NEGATIVE [facility] CenterUrine glucose blrkwwxuc6412-04-88 12:25:00* Test Item Value Reference Range Interpretation Comments Urine Glucose (UA) (test code = 2349-9) NEGATIVE NEGATIVE [facility] CenterUrine ketones detection by automated test wkilo7024-10-87 12:25:00* Test Item Value Reference Range Interpretation Comments Urine Ketones (test code = 21475-7) NEGATIVE NEGATIVE [facility] CenterUrine opiates screening kied9066-76-25 12:25:00* Test Item Value Reference Range Interpretation Comments Urine Opiates Screen (test code = 61022-2) NEGATIVE NEGATIVE ALL TESTS PERFORMED MANUALLY ON [place] TOX/SEE TESTSaint [facility] Medical CenterBarbiturates screen, cqrcq9495-45-09 12:25:00* Test Item Value Reference Range Interpretation Comments Urine Barbiturates Screen (test code = 279014515) NEGATIVE NEGA TIVE [facility] CenterUrine phencyclidine detection by screening gqsgoi6193-86-50 12:25:00* Test Item Value Reference Range Interpretation Comments Urine Phencyclidine Screen (test code = 47375-5) NEGATIVE NEGAT RAUDEL [facility] CenterUrine amphetamines detection by screen method > 1000 ng/kR0511-35-29 12:25:00* Test Item Value Reference Range Interpretation Comments Urine Amphetamines Screen (test code = 58453-8) NEGATIVE NEGATI VE [facility] CenterFluoroscopic procedure less than one hour ychlakfm9796-12-72 12:25:00* Test Item Value Reference Range Interpretation Comments Urine Methamphetamines Screen (test code = Urine Metha mphetamines Screen) NEGATIVE NEGATIVE [facility] CenterUrine benzodiazepines detection by screening ypdvef1417-18-21 12:25:00* Test Item Value Reference Range Interpretation Comments Urine Benzodiazepines Screen (test code = 66838-6) NEGATIVE NEG ATIVE [facility] CenterUrine cocaine measurement (mass/volume) 2020-04-07 12:25:00* Test Item Value Reference Range Interpretation Comments Urine Cocaine Screen (test code = 3398-5) NEGATIVE NEGATIVE [facility] CenterUrine cannabinoids detection by screening tojrrw6890-36-29 12:25:00* Test Item Value Reference Range Interpretation Comments Urine Cannabinoids Screen (test code = 01709-3) NEGATIVE NEGATI VE THESE RESULTS ARE FOR MEDICAL TREATMENT ONLYTHIS REPORT CONTAINS UNCONFIR MED SCREENING RESULTS*POSITIVE RESULTS WILL BE CONFIRMED BY REFERENCE LAB UPON R EQUEST CUT-OFFDRUG CLASS CONCENTRATION ng/mLAmphetamines 1000Methamphetamines 1000Cocaine 300Opiate 300Phencyc lidine 25Cannabinoid 50Barbiturates 300Benzodiazepine 300Methadone 300[facility] CenterUrine methadone mftzom8809-43-44 12:25:00* Test Item Value Reference Range Interpretation Comments Urine Methadone Screen (test code = 55686-2) NEGATIVE NEGATIVE THESE RESULTS ARE FOR MEDICAL TREATMENT ONLYTHIS REPORT CONTAINS UNCONFIR MED SCREENING RESULTS*POSITIVE RESULTS WILL BE CONFIRMED BY REFERENCE LAB UPON R EQUEST CUT-OFFDRUG CLASS CONCENTRATION ng/mLAmphetamines 1000Methamphetamines 1000Cocaine Metabolite 300Opiate 300Phencyc lidine 25Cannabinoid 50Barbiturates 300Benzodiazepine 300Methadone 300[facility] CenterUrine urobilinogen measurement by test strip (mass/volume)2020-04-07 12:25:00* Test Item Value Reference Range Interpretation Comments Urine Urobilinogen (test code = 69012-3) 8 0.2-1 [facility] CenterUrine total bilirubin measurement (mass/volume)2020-04-07 12:25:00* Test Item Value Reference Range Interpretation Comments Urine Bilirubin (test code = 1978-6) NEGATIVE NEGATIVE [facility] CenterUrine erythrocytes ebtnwvmgs9740-97-23 12:25:00* Test Item Value Reference Range Interpretation Comments Urine Blood (test code = 78828-3) NEGATIVE NEGATIVE [facility] CenterAutomated urine sediment leukocyte count by microscopy (number/high power field)2020-04-07 12:25:00* Test Item Value Reference Range Interpretation Comments Urine WBC (test code = 5821-4) 0-5 0-5 [facility] CenterErythrocytes detection in urine sediment by light eflhlyehat2727-92-20 12:25:00* Test Item Value Reference Range Interpretation Comments Urine RBC (test code = 51369-6) 0-5 0-5 [facility] CenterBacteria detection in urine sediment by light jclacmiawy9366-48-52 12:25:00* Test Item Value Reference Range Interpretation Comments Urine Bacteria (test code = 97323-7) RARE NONE [facility] CenterEpithelial cells detection in urine sediment by light wqobznlqgn4060-63-78 12:25:00* Test Item Value Reference Range Interpretation Comments Urine Epithelial Cells (test code = 03416-9) RARE NONE [facility] CenterUrine color dixropzkopimz3083-35-87 12:25:00* Test Item Value Reference Range Interpretation Comments Urine Color (test code = 5778-6) YELLOW YELLOW [facility] CenterUrine flfemnn4454-87-14 12:25:00* Test Item Value Reference Range Interpretation Comments Urine Clarity (test code = 67541-5) CLEAR CLEAR [facility] Centerpecific gravity of Urine by Test strip 2020-04-07 12:25:00* Test Item Value Reference Range Interpretation Comments Urine Specific [place] (test code = 5811-5) 1.025 1.010-1.02 5 [facility] CenterUrine pH measurement by automated test juiqq0443-10-05 12:25:00* Test Item Value Reference Range Interpretation Comments Urine pH (test code = 38024-9) 6.5 5-7 [facility] CenterUrine leukocyte esterase detection by hkgflyav5760-90-80 12:25:00* Test Item Value Reference Range Interpretation Comments Urine Leukocyte Esterase (test code = 5799-2) NEGATIVE NEGATIVE [facility] CenterUrine nitrite zktgscers4517-56-26 12:25:00* Test Item Value Reference Range Interpretation Comments Urine Nitrite (test code = 37666-6) NEGATIVE NEGATIVE [facility] CenterUrine protein measurement by test strip (mass/volume)2020-04-07 12:25:00* Test Item Value Reference Range Interpretation Comments Urine Protein (test code = 5804-0) NEGATIVE NEGATIVE [facility] CenterUrine glucose idhsuaioe2686-61-23 12:25:00* Test Item Value Reference Range Interpretation Comments Urine Glucose (UA) (test code = 2349-9) NEGATIVE NEGATIVE [facility] CenterUrine ketones detection by automated test skhji5819-02-85 12:25:00* Test Item Value Reference Range Interpretation Comments Urine Ketones (test code = 87884-6) NEGATIVE NEGATIVE [facility] CenterUrine opiates screening kchg7211-55-60 12:25:00* Test Item Value Reference Range Interpretation Comments Urine Opiates Screen (test code = 07538-0) NEGATIVE NEGATIVE ALL TESTS PERFORMED MANUALLY ON [place] TOX/SEE TESTSaint [facility] Medical CenterBarbiturates screen, kcbyy6398-62-68 12:25:00* Test Item Value Reference Range Interpretation Comments Urine Barbiturates Screen (test code = 918724670) NEGATIVE NEGA TIVE [facility] CenterUrine phencyclidine detection by screening ypvfim3289-51-75 12:25:00* Test Item Value Reference Range Interpretation Comments Urine Phencyclidine Screen (test code = 17132-1) NEGATIVE NEGAT RAUDEL [facility] CenterUrine amphetamines detection by screen method > 1000 ng/lO4875-33-15 12:25:00* Test Item Value Reference Range Interpretation Comments Urine Amphetamines Screen (test code = 68144-6) NEGATIVE NEGATI VE [facility] CenterFluoroscopic procedure less than one hour rexhseic2654-58-70 12:25:00* Test Item Value Reference Range Interpretation Comments Urine Methamphetamines Screen (test code = Urine Metha mphetamines Screen) NEGATIVE NEGATIVE [facility] CenterUrine benzodiazepines detection by screening woywoz7940-84-15 12:25:00* Test Item Value Reference Range Interpretation Comments Urine Benzodiazepines Screen (test code = 79855-4) NEGATIVE NEG ATIVE [facility] CenterUrine cocaine measurement (mass/volume) 2020-04-07 12:25:00* Test Item Value Reference Range Interpretation Comments Urine Cocaine Screen (test code = 3398-5) NEGATIVE NEGATIVE [facility] CenterUrine cannabinoids detection by screening bhenwx6592-26-75 12:25:00* Test Item Value Reference Range Interpretation Comments Urine Cannabinoids Screen (test code = 40927-8) NEGATIVE NEGATI VE THESE RESULTS ARE FOR MEDICAL TREATMENT ONLYTHIS REPORT CONTAINS UNCONFIR MED SCREENING RESULTS*POSITIVE RESULTS WILL BE CONFIRMED BY REFERENCE LAB UPON R EQUEST CUT-OFFDRUG CLASS CONCENTRATION ng/mLAmphetamines 1000Methamphetamines 1000Cocaine 300Opiate 300Phencyc lidine 25Cannabinoid 50Barbiturates 300Benzodiazepine 300Methadone 300[facility] HospitalUrine methadone nrvdcy3831-54-11 12:25:00* Test Item Value Reference Range Interpretation Comments Urine Methadone Screen (test code = 40479-0) NEGATIVE NEGATIVE THESE RESULTS ARE FOR MEDICAL TREATMENT ONLYTHIS REPORT CONTAINS UNCONFIR MED SCREENING RESULTS*POSITIVE RESULTS WILL BE CONFIRMED BY REFERENCE LAB UPON R EQUEST CUT-OFFDRUG CLASS CONCENTRATION ng/mLAmphetamines 1000Methamphetamines 1000Cocaine Metabolite 300Opiate 300Phencyc lidine 25Cannabinoid 50Barbiturates 300Benzodiazepine 300Methadone 300[facility] CenterUrine urobilinogen measurement by test strip (mass/volume)2020-04-07 12:25:00* Test Item Value Reference Range Interpretation Comments Urine Urobilinogen (test code = 86372-0) 8 0.2-1 [facility] CenterUrine total bilirubin measurement (mass/volume)2020-04-07 12:25:00* Test Item Value Reference Range Interpretation Comments Urine Bilirubin (test code = 1978-6) NEGATIVE NEGATIVE [facility] CenterUrine erythrocytes cbbxrxdfr7349-77-84 12:25:00* Test Item Value Reference Range Interpretation Comments Urine Blood (test code = 14638-3) NEGATIVE NEGATIVE [facility] CenterAutomated urine sediment leukocyte count by microscopy (number/high power field)2020-04-07 12:25:00* Test Item Value Reference Range Interpretation Comments Urine WBC (test code = 5821-4) 0-5 0-5 [facility] CenterErythrocytes detection in urine sediment by light nipgtqfsag2650-26-71 12:25:00* Test Item Value Reference Range Interpretation Comments Urine RBC (test code = 04284-8) 0-5 0-5 [facility] CenterBacteria detection in urine sediment by light kuylfhnqcr3566-91-87 12:25:00* Test Item Value Reference Range Interpretation Comments Urine Bacteria (test code = 84981-7) RARE NONE [facility] CenterEpithelial cells detection in urine sediment by light zhghtvnoew9528-12-59 12:25:00* Test Item Value Reference Range Interpretation Comments Urine Epithelial Cells (test code = 71453-2) RARE NONE [facility] CenterUrine opiates screening tbxf6456-38-49 12:25:00* Test Item Value Reference Range Interpretation Comments Urine Opiates Screen (test code = 73633-3) NEGATIVE NEGATIVE ALL TESTS PERFORMED MANUALLY ON [place] TOX/SEE TESTSaint [facility] Medical CenterBarbiturates screen, lmeqh5565-95-05 12:25:00* Test Item Value Reference Range Interpretation Comments Urine Barbiturates Screen (test code = 095002527) NEGATIVE NEGA TIVE [facility] CenterUrine phencyclidine detection by screening ybtxlw4114-29-01 12:25:00* Test Item Value Reference Range Interpretation Comments Urine Phencyclidine Screen (test code = 64082-5) NEGATIVE NEGAT RAUDEL [facility] CenterUrine amphetamines detection by screen method > 1000 ng/yG7108-97-31 12:25:00* Test Item Value Reference Range Interpretation Comments Urine Amphetamines Screen (test code = 94042-4) NEGATIVE NEGATI VE [facility] CenterFluoroscopic procedure less than one hour tznagjky3101-30-15 12:25:00* Test Item Value Reference Range Interpretation Comments Urine Methamphetamines Screen (test code = Urine Metha mphetamines Screen) NEGATIVE NEGATIVE [facility] CenterUrine benzodiazepines detection by screening wjqowq7738-25-70 12:25:00* Test Item Value Reference Range Interpretation Comments Urine Benzodiazepines Screen (test code = 24065-8) NEGATIVE NEG ATIVE [facility] CenterUrine cocaine measurement (mass/volume) 2020-04-07 12:25:00* Test Item Value Reference Range Interpretation Comments Urine Cocaine Screen (test code = 3398-5) NEGATIVE NEGATIVE [facility] CenterUrine cannabinoids detection by screening hhbpko4117-51-87 12:25:00* Test Item Value Reference Range Interpretation Comments Urine Cannabinoids Screen (test code = 19808-2) NEGATIVE NEGATI VE THESE RESULTS ARE FOR MEDICAL TREATMENT ONLYTHIS REPORT CONTAINS UNCONFIR MED SCREENING RESULTS*POSITIVE RESULTS WILL BE CONFIRMED BY REFERENCE LAB UPON R EQUEST CUT-OFFDRUG CLASS CONCENTRATION ng/mLAmphetamines 1000Methamphetamines 1000Cocaine 300Opiate 300Phencyc lidine 25Cannabinoid 50Barbiturates 300Benzodiazepine 300Methadone 300[facility] HospitalUrine methadone ewlvnv4993-77-41 12:25:00* Test Item Value Reference Range Interpretation Comments Urine Methadone Screen (test code = 94223-8) NEGATIVE NEGATIVE THESE RESULTS ARE FOR MEDICAL TREATMENT ONLYTHIS REPORT CONTAINS UNCONFIR MED SCREENING RESULTS*POSITIVE RESULTS WILL BE CONFIRMED BY REFERENCE LAB UPON R EQUEST CUT-OFFDRUG CLASS CONCENTRATION ng/mLAmphetamines 1000Methamphetamines 1000Cocaine Metabolite 300Opiate 300Phencyc lidine 25Cannabinoid 50Barbiturates 300Benzodiazepine 300Methadone 300[facility] HospitalCT BRAIN HB1439-17-15 12:01:00 [place] [address] Patient Name: AMAURY CONTE MR #: [id number] : 1945 Age/Sex: 74/F Req #: [id number] Adm Physician: Ordered by: NEL BONNER MD Report #: [id number] Location: ER Room/Bed: Procedure: [id number] CT/CT BRAIN WO Exam Date: 04/07/20 Exam [...] Dictat ed By: SRINATH LARA MD, MD 1206 Transcribed By: JUAN on 04/07/20 120 COPY TO : NEL BONNER MD Activated partial thromboplastin time (aPTT) in platelet poor plasma by coagulation fzrqa2553-74-80 11:55:00* Test Item Value Reference Range Interpretation Comments Activated Partial Thromboplast Time (test code = 10538-7) 42.7 23.8-35.5 [facility] CenterFluoroscopic procedure less than one hour iyettazi9211-83-13 11:55:00* Test Item Value Reference Range Interpretation Comments Lactic Acid Level (test code = Lactic Acid Level) 1.9 0.5- 2.0 [facility] CenterFree thyroxine bipcu1563-52-05 11:55:00* Test Item Value Reference Range Interpretation Comments Free Thyroxine Index (test code = 18698-8) 3.3708 1.4-3.8 [facility] Centererum or plasma thyroxine (T4) measurement (mass/volume)2020-04-07 11:55:00* Test Item Value Reference Range Interpretation Comments Thyroxine (T4) (test code = 3026-2) 9.45 4.5-10.9 Our current method for Total T4 is not recommended for use as the only marker fo r evaluating patients for thyroid disorders.[facility] Centererum or plasma triiodothyronine resin uptake (T3RU)2020-04-07 11:55:00* Test Item Value Reference Range Interpretation Comments Triiodothyronine (T3) Uptake (test code = 3050-2) 35.67 22.5 -37.0 [facility] Centererum or plasma thyrotropin measurement by detection limit <= 0.005 miu/l (units/volume)2020-04-07 11:55:00* Test Item Value Reference Range Interpretation Comments Thyroid Stimulating Hormone (TSH) (test code = 86823-2) 4.627 0.350-4.940 [facility] CenterBlood gjiffxp9231-84-76 11:55:00* Test Item Value Reference Range Interpretation Comments Blood Culture (test code = 82926167) NO GROWTH AFTER 48 HOURS [facility] CenterActivated partial thromboplastin time (aPTT) in platelet poor plasma by coagulation iunft1083-74-52 11:55:00* Test Item Value Reference Range Interpretation Comments Activated Partial Thromboplast Time (test code = 21564-9) 42.7 23.8-35.5 [facility] CenterFluoroscopic procedure less than one hour lamlhady2664-62-84 11:55:00* Test Item Value Reference Range Interpretation Comments Lactic Acid Level (test code = Lactic Acid Level) 1.9 0.5- 2.0 [facility] CenterFree thyroxine otbfx3350-76-17 11:55:00* Test Item Value Reference Range Interpretation Comments Free Thyroxine Index (test code = 51369-1) 3.3708 1.4-3.8 [facility] Centererum or plasma thyroxine (T4) measurement (mass/volume)2020-04-07 11:55:00* Test Item Value Reference Range Interpretation Comments Thyroxine (T4) (test code = 3026-2) 9.45 4.5-10.9 Our current method for Total T4 is not recommended for use as the only marker fo r evaluating patients for thyroid disorders.[facility] Centererum or plasma triiodothyronine resin uptake (T3RU)2020-04-07 11:55:00* Test Item Value Reference Range Interpretation Comments Triiodothyronine (T3) Uptake (test code = 3050-2) 35.67 22.5 -37.0 [facility] Centererum or plasma thyrotropin measurement by detection limit <= 0.005 miu/l (units/volume)2020-04-07 11:55:00* Test Item Value Reference Range Interpretation Comments Thyroid Stimulating Hormone (TSH) (test code = 46631-3) 4.627 0.350-4.940 [facility] CenterBlood kpcwccm4754-40-96 11:55:00* Test Item Value Reference Range Interpretation Comments Blood Culture (test code = 45283944) NO GROWTH AFTER 5 DAYS, FINAL REPORT [facility] CenterFree thyroxine pewkr0901-17-13 11:55:00* Test Item Value Reference Range Interpretation Comments Free Thyroxine Index (test code = 53945-5) 3.3708 1.4-3.8 [facility] or plasma thyroxine (T4) measurement (mass/volume)2020-04-07 11:55:00* Test Item Value Reference Range Interpretation Comments Thyroxine (T4) (test code = 3026-2) 9.45 4.5-10.9 Our current method for Total T4 is not recommended for use as the only marker fo r evaluating patients for thyroid disorders.[facility] or plasma triiodothyronine resin uptake (T3RU)2020-04-07 11:55:00* Test Item Value Reference Range Interpretation Comments Triiodothyronine (T3) Uptake (test code = 3050-2) 35.67 22.5 -37.0 [facility] or plasma thyrotropin measurement by detection limit <= 0.005 miu/l (units/volume)2020-04-07 11:55:00* Test Item Value Reference Range Interpretation Comments Thyroid Stimulating Hormone (TSH) (test code = 07926-7) 4.627 0.350-4.940 [facility]GLUBED2020-[facility] 08:44:00* Test Item Value Reference Range Interpretation Comments GLUBED (test code = GLUBED) 128 mg/dL 74-106 H Performed by certified automatic casting machine operator at [facility] BASIC METABOLIC [id number] 03:36:00* Test Item Value Reference Range Interpretation [...] CA) 8.6 mg/dL 8.5-10.1 N BASIC METABOLIC [id number] 03:32:00* Test Item Value Reference Range Interpretation [...] code = CA) mg/dL 8.5-10.1 CBC W/AUTO [id number] 03:19:00* Test Item Value Reference Range Interpretation [...] (test code = MDIFF) NO CBC W/AUTO [id number] 03:17:00* Test Item Value Reference Range Interpretation [...] # (test code = BA#) K/mm3 0.0-0.2 [id number] 21:19:00* Test Item Value Reference Range Interpretation Comments GLUBED (test code = GLUBED) 215 mg/dL 74-106 H Performed by certified automatic casting machine operator at [facility] ZMCRFP9314-92-82 15:38:00* Test Item Value Reference Range Interpretation Comments GLUBED (test code = GLUBED) 227 mg/dL 74-106 H Performed by certified automatic casting machine operator at [facility] [id number] 11:50:00* Test Item Value Reference Range Interpretation Comments GLUBED (test code = GLUBED) 277 mg/dL 74-106 H Performed by certified automatic casting machine operator at [facility] MLTRXJ1087-44-97 08:17:00* Test Item Value Reference Range Interpretation Comments GLUBED (test code = GLUBED) 180 mg/dL 74-106 H Performed by certified automatic casting machine operator at [facility] IFRZFQ7308-06-97 20:14:00* Test Item Value Reference Range Interpretation Comments GLUBED (test code = GLUBED) 208 mg/dL 74-106 H Performed by certified automatic casting machine operator at [facility] [id number] 19:07:00* Test Item Value Reference Range Interpretation Comments GLUBED (test code = GLUBED) 169 mg/dL 74-106 H Performed by certified automatic casting machine operator at [facility] HXFWDM3312-10-10 13:04:00* Test Item Value Reference Range Interpretation Comments GLUBED (test code = GLUBED) 190 mg/dL 74-106 H Performed by certified automatic casting machine operator at [facility] KAGRUG6772-90-65 08:23:00* Test Item Value Reference Range Interpretation Comments GLUBED (test code = GLUBED) 143 mg/dL 74-106 H Performed by certified automatic casting machine operator at [facility] COMPREHENSIVE METABOLIC [id number] 06:46:00* Test Item Value Reference Range Interpretation [...] due to change in reagent. COMPREHENSIVE METABOLIC [id number] 06:45:00* Test Item Value Reference Range Interpretation [...] due to change in reagent. CBC W/AUTO [id number] 05:44:00* Test Item Value Reference Range Interpretation [...] (test code = MDIFF) NO CBC W/AUTO [id number] 05:37:00* Test Item Value Reference Range Interpretation [...] # (test code = BA#) K/mm3 0.0-0.2 [id number] 20:53:00* Test Item Value Reference Range Interpretation Comments GLUBED (test code = GLUBED) 226 mg/dL 74-106 H Performed by certified automatic casting machine operator at [facility] SPBJUZ4988-22-84 17:24:00* Test Item Value Reference Range Interpretation Comments GLUBED (test code = GLUBED) 209 mg/dL 74-106 H Performed by certified automatic casting machine operator at [facility] [id number] 12:37:00* Test Item Value Reference Range Interpretation Comments GLUBED (test code = GLUBED) 179 mg/dL 74-106 H Performed by certified automatic casting machine operator at [facility] [id number] 08:06:00* Test Item Value Reference Range Interpretation Comments GLUBED (test code = GLUBED) 144 mg/dL 74-106 H Performed by certified automatic casting machine operator at [facility] [id number] 04:55:00* Test Item Value Reference Range Interpretation Comments GLUBED (test code = GLUBED) 182 mg/dL 74-106 H Performed by certified automatic casting machine operator at [facility] COMPREHENSIVE METABOLIC [id number] 04:30:00* Test Item Value Reference Range Interpretation Comments SODIUM (test code = NA) 150 mmol/L 136-145 H Resu lts called to by THIERRY 01/08/20 0430Critical results verified and read back [...] due to change in reagent. CBC W/AUTO [id number] 03:59:00* Test Item Value Reference Range Interpretation [...] (test code = MDIFF) NO CBC W/AUTO [id number] 03:55:00* Test Item Value Reference Range Interpretation [...] # (test code = BA#) K/mm3 0.0-0.2 [id number] 19:48:00* Test Item Value Reference Range Interpretation Comments GLUBED (test code = GLUBED) 180 mg/dL 74-106 H Performed by certified automatic casting machine operator at [facility] [id number] 15:47:00* Test Item Value Reference Range Interpretation Comments GLUBED (test code = GLUBED) 207 mg/dL 74-106 H Performed by certified automatic casting machine operator at [facility] KZUPMO1256-52-94 12:22:00* Test Item Value Reference Range Interpretation Comments GLUBED (test code = GLUBED) 167 mg/dL 74-106 H Performed by certified automatic casting machine operator at [facility] JPPPVI8960-00-94 08:05:00* Test Item Value Reference Range Interpretation Comments GLUBED (test code = GLUBED) 112 mg/dL 74-106 H Performed by certified automatic casting machine operator at [facility] COMPREHENSIVE METABOLIC [id number] 05:27:00* Test Item Value Reference Range Interpretation [...] due to change in reagent. COMPREHENSIVE METABOLIC [id number] 05:19:00* Test Item Value Reference Range Interpretation [...] code = ALKP) IUnit/L 45-117 CBC W/AUTO [id number] 04:57:00* Test Item Value Reference Range Interpretation [...] (test code = MDIFF) NO CBC W/AUTO [id number] 04:49:00* Test Item Value Reference Range Interpretation [...] # (test code = BA#) K/mm3 0.0-0.2 [id number] 21:21:00* Test Item Value Reference Range Interpretation Comments GLUBED (test code = GLUBED) 162 mg/dL 74-106 H Performed by certified automatic casting machine operator at [facility] [id number] 18:39:00* Test Item Value Reference Range Interpretation Comments GLUBED (test code = GLUBED) 233 mg/dL 74-106 H Performed by certified automatic casting machine operator at [facility] - XR CHEST 1 [id number] 16:47:00 FAX: Zaira Beltran MD [phone] [place]: [address] St: ADM Name: AMAURY MAZA [facility] : [birth year] Age/S: 74/F [address] [facility] Unit #: [id number] Loc: V.3107 [place] [address] Phys: Zaira Woodard MD Acct: [id number] Dis Date: Status: ADM IN PHONE #: [phone] Exam Date: 01/06/2020 1611 FAX #: [phone] Reason: SOB EXAMS: CPT CODE: [id number] XR CHEST 1 V 39116 HISTORY: Shortness of breath and d yspnea. COMPARISON: March 17, 2016. Location: TH. No acute infiltrates, effusion or congestion is noted. Suboptimal inspiration. Dependent changes. Left ICD with the lead in the right v entricle. Moderate cardiomegaly. IMPRESSION: No acute infiltrates, effusion or congestion. Electronically Lilly d by Ammy Castrejon on 01/06/2020 at 1642 Reported an d signed by: Reynold Castrejon M.D. CC: Zaira Woodard MD Technologist: Vesna Cordova(R) Trnscrd Date/Time/By: 01/06/2020 (1646) : By: [place] H4 [facility] Print D/T: S: 01/06/2020 (8725) PAGE 1 Signed Report GLUBED 2020-01-06 16:19:00* Test Item Value Reference Range Interpretation Comments GLUBED (test code = GLUBED) 192 mg/dL 74-106 H Performed by certified automatic casting machine operator at [facility] [id number] 12:12:00* Test Item Value Reference Range Interpretation Comments GLUBED (test code = GLUBED) 112 mg/dL 74-106 H Performed by certified automatic casting machine operator at [facility] [id number] 07:42:00* Test Item Value Reference Range Interpretation Comments GLUBED (test code = GLUBED) 105 mg/dL 74-106 N Performed by certified automatic casting machine operator at [facility] COMPREHENSIVE METABOLIC [id number] 06:08:00* Test Item Value Reference Range Interpretation [...] due to change in reagent. COMPREHENSIVE METABOLIC [id number] 05:58:00* Test Item Value Reference Range Interpretation [...] code = ALKP) IUnit/L 45-117 CBC W/AUTO [id number] 05:31:00* Test Item Value Reference Range Interpretation [...] (test code = MDIFF) NO CBC W/AUTO [id number] 05:30:00* Test Item Value Reference Range Interpretation [...] (test code = BA#) K/mm3 0.0-0.2 VITAMIN [id number] 01:16:00* Test Item Value Reference Range Interpretation Comments VITAMIN B12 (test code = VITB12) 823 pg/mL 193-986 N FOLIC [id number] 01:16:00* Test Item Value Reference Range Interpretation Comments FOLIC ACID (test code = FOL) 18.7 ng/mL 3.10-17.50 H [id number] 00:53:00* Test Item Value Reference Range Interpretation Comments TROPONIN-I (test code = TROPI) <0.015 ng/mL 0-0.045 N URINALYSIS [id number] 23:28:00* Test Item Value Reference Range Interpretation [...] BACU) NONE SEEN #/HPF NONE Urine Source? [id number]-[id number] 22:41:00* Test Item Value Reference Range Interpretation Comments TROPONIN-I (test code = TROPI) <0.015 ng/mL 0-0.045 N [id number] 21:53:00* Test Item Value Reference Range Interpretation Comments GLUBED (test code = GLUBED) 133 mg/dL 74-106 H Performed by certified automatic casting machine operator at [facility] COMPREHENSIVE METABOLIC [id number] 19:55:00* Test Item Value Reference Range Interpretation [...] reference range due to change in reagent. [id number] 19:55:00* Test Item Value Reference Range Interpretation Comments PHOSPHORUS (test code = PHOS) 2.3 mg/dL 2.5-4.9 L [id number] 19:55:00* Test Item Value Reference Range Interpretation Comments MAGNESIUM (test code = MAG) 2.0 mg/dL 1.8-2.4 N THYROID STIMULATING [id number] 19:55:00* Test Item Value Reference Range Interpretation Comments THYROID STIMULATING HORMONE (test code = TSH) 0.406 uIU/mL 0.36-3.7 4 N TSH REFERENCE RANGES: EUTHYROID: 0.35 - 4.3 mIU/mL HYPO : > 5.5 mIU/mL HYPER : < 0.35 mIU/mL [id number] 19:50:00* Test Item Value Reference Range Interpretation [...] result is a direct measurement.========= COMPREHENSIVE METABOLIC [id number] 19:38:00* Test Item Value Reference Range Interpretation [...] TOTAL (test code = ALKP) IUnit/L 45-117 [id number] 19:38:00* Test Item Value Reference Range Interpretation Comments PHOSPHORUS (test code = PHOS) mg/dL 2.5-4.9 [id number] 19:38:00* Test Item Value Reference Range Interpretation Comments MAGNESIUM (test code = MAG) mg/dL 1.8-2.4 THYROID STIMULATING [id number] 19:38:00* Test Item Value Reference Range Interpretation Comments THYROID STIMULATING HORMONE (test code = TSH) uIU/mL 0.36-3.7 4 [id number] 19:32:00* Test Item Value Reference Range Interpretation Comments GLYCOSYLATED HEMOGLOBIN (HA1C) (test code = GLYHGB) 5.4 % HbA1 SUGGESTED DIAGNOSIS: HbA1C (%) Diabetic >6.4Prediabetes 5.7 - 6.4Normal <5.7 ESTIMATED AVERAGE GLUCOSE (test code = EAG) 108 MG/DL - CT L-SPINE W/O [id number] 19:27:00 Name: AMAURY CONTE [facility] : 1945 Age/S: 74 / F [address] [facility] Unit #: [id number] Loc: [place] [address] Phys: Zaira Woodard MD Acct: [id number] Dis Date: Status: ADM IN PHONE #: [phone] Exam Date: 01/05/2020 1851 FAX #: [phone] Reason: Weakness B/L LE EXAMS: CPT CODE: [id number] CT L-SPINE W/O CONTRAST 75882 HISTORY: Bilateral lower extremity weakness. COMPARISON: None [...] 1 Signed Report (CONTINUED) Name: AMAURY CONTE [facility] : 1945 Age/S: 74 / F [address] [facility] Unit #: [id number] Loc: [place] [address] Phys: Zaira Woodard MD Acct : [id number] Dis Date: Status: ADM IN PHONE #: [phone] Exam Date: 01/05/2020 185 FAX #: [phone] Reason: Weakness B/L LE EXAMS: CPT CODE: [id number] L-SPINE W/O CONTRAST 20382 <Continued> CC: Zaira Woodard MD Technologist:DIEGO TRAN CT; CTDI: DLP: Trnscb Date/Time: 01/05/2020 (1926) t.SDR.TH4 Or ig Print D/T: S: 01/05/2020 (1929) PAGE 2 Signed Rep ort - CT C-SPINE W/O [id number] 19:16:00 Name: AMAURY CONTE [facility] : 1945 Age/S: 74 / F [address] [facility] Unit #: [id number] Loc: [place] [address] Phys: Reina Woodard MD Acct: [id number] Di s Date: Status: ADM IN PHONE #: Exam Date: 01/05/20201851 FAX #: Reason: Parasthesias B/L UE EXAMS: CPT CODE: [id number] CT C-SPINE W/ O CONTRAST 13696 HISTORY: Generalized weak ness and paresthesia. COMPARISON: [...] 1 Signed Report (CONTINUED) Name: GENO CONTE [facility] : 1945 Age/ S: 74 / F [address] [facility] Unit #: [id number] Loc: [place] [address] Phys: Zaira Woodard MD Acct: [id number] Dis Date: Status: ADM IN PHONE #: [phone] E xam Date: 01/05/20201851 FAX #: [phone] Reason: Parasthesias B/L UE EXAMS: CPT CODE: [id number] CT C-SPINE W/O CONTRAST 48115 <Continued> CC: Zaira Woodard MD Technologist:DIEGO TRAN CT; May CTDI: DLP: Trnscb Date/Time: 01/05/2020 (1915) t.SDR.TH4 Orig Print D/T: S: 01/05/2020 (1919) PAGE 2 Signed Report PROTHROMBIN [id number] 19:07:00* Test Item Value Reference Range Interpretation [...] (test code = MDIFF) NO CBC W/AUTO [id number] 18:55:00* Test Item Value Reference Range Interpretation [...] # (test code = BA#) K/mm3 0.0-0.2 [id number] 16:43:00* Test Item Value Reference Range Interpretation Comments GLUBED (test code = GLUBED) 78 mg/dL 74-106 N Performed by certified automatic casting machine operator at [facility] Bedside Iqlgjzf6637-56-41 20:20:00* Test Item Value Reference Range Interpretation Comments Bedside Glucose (test code = 25370-8) 131 70-120 H Meter ID: [id number] [facility] CenterBedside Glucose 2018-11-11 20:20:00* Test Item Value Reference Range Interpretation Comments Bedside Glucose (test code = 55973-6) 131 70-120 H Meter ID: [id number] [facility]illus Medical CenterCreatine Kinase MB 2018-11-11 04:05:00* Test Item Value Reference Range Interpretation Comments Creatine Kinase MB (test code = 61881-3) 0.80 0-5.0 [facility] CenterTroponin [id number] 04:05:00* Test Item Value Reference Range Interpretation Comments Troponin I (test code = OPC8644) 0.005 0-0.300 [facility] CenterCreatine Kinase [id number] 04:05:00* Test Item Value Reference Range Interpretation Comments Creatine Kinase MB (test code = 91525-2) 0.80 0-5.0 [facility] CenterTroponin [id number] 04:05:00* Test Item Value Reference Range Interpretation Comments Troponin I (test code = DLP2321) 0.005 0-0.300 [facility] CenterB-Type Natriuretic Qwsyqrg6026-05-79 03:56:00* Test Item Value Reference Range Interpretation Comments B-Type Natriuretic Peptide (test code = 69766-2) 210.1 0-100 H [facility] CenterCreatine Zwfeuy2602-62-76 03:56:00* Test Item Value Reference Range Interpretation Comments Creatine Kinase (test code = 2157-6) 37 29-168 [facility] CenterB-Type Natriuretic Gzaefhq2128-46-41 03:56:00* Test Item Value Reference Range Interpretation Comments B-Type Natriuretic Peptide (test code = 42798-6) 210.1 0-100 H [facility] CenterCreatine Digyrr5547-83-23 03:56:00* Test Item Value Reference Range Interpretation Comments Creatine Kinase (test code = 2157-6) 37 29-168 [facility] Centerodium Utndx7864-58-12 03:46:00* Test Item Value Reference Range Interpretation Comments Sodium Level (test code = 2951-2) 144 136-145 [facility] CenterPotassium Jgmna0576-72-65 03:46:00* Test Item Value Reference Range Interpretation Comments Potassium Level (test code = 2823-3) 4.2 3.5-5.1 [facility] CenterChloride Cspxz0984-81-08 03:46:00* Test Item Value Reference Range Interpretation Comments Chloride Level (test code = 2075-0) 115 98-107 H [facility] CenterCarbon Dioxide Lyzbb6530-70-89 03:46:00* Test Item Value Reference Range Interpretation Comments Carbon Dioxide Level (test code = 2028-9) 22 22-29 [facility] CenterAnion Ldr5818-67-23 03:46:00* Test Item Value Reference Range Interpretation Comments Anion Gap (test code = 65771-2) 11.2 8-16 [facility] CenterBlood Urea Mduewilp4872-71-30 03:46:00* Test Item Value Reference Range Interpretation Comments Blood Urea Nitrogen (test code = 3094-0) 20 7-26 [facility] CenterCreatinine2019-01-25 03:46:00* Test Item Value Reference Range Interpretation Comments Creatinine (test code = 2160-0) 1.00 0.57-1.11 [facility] CenterBUN/Creatinine Pfrvw3874-68-65 03:46:00* Test Item Value Reference Range Interpretation Comments BUN/Creatinine Ratio (test code = 3097-3) 20 6-25 [facility] CenterEstimat Glomerular Filtration Rate 2018-11-11 03:46:00* Test Item Value Reference Range Interpretation Comments Estimat Glomerular Filtration Rate (test code = 487625279) 54 >60 L Ranges were taken from the National Kidney Disease Education Program and the [facility] literature.Reference ranges:60 or greater: Shmjpf66-11 ( for 3 consecutive months): Chronic kidney disease 15 or less: Kidney failureSaint Camillus Medical CenterGlucose Fnjuf3876-02-13 03:46:00* Test Item Value Reference Range Interpretation Comments Glucose Level (test code = YOX1456) 89 74-118 [facility] CenterCalcium Whsrg6896-86-45 03:46:00* Test Item Value Reference Range Interpretation Comments Calcium Level (test code = 93802-9) 9.0 8.4-10.2 [facility] CenterTotal Tbkjwkmpz8357-94-13 03:46:00* Test Item Value Reference Range Interpretation Comments Total Bilirubin (test code = 1975-2) 0.9 0.2-1.2 [facility] CenterAspartate Amino Transf (AST/SGOT) 2018-11-11 03:46:00* Test Item Value Reference Range Interpretation Comments Aspartate Amino Transf (AST/SGOT) (test code = Aspartate Amino Transf (AST/SGOT)) 34 5-34 [facility] CenterAlanine Aminotransferase (ALT/SGPT) 2018-11-11 03:46:00* Test Item Value Reference Range Interpretation Comments Alanine Aminotransferase (ALT/SGPT) (test code = 1742-6) 18 0-55 [facility] CenterTotal Soqzvag1042-76-98 03:46:00* Test Item Value Reference Range Interpretation Comments Total Protein (test code = 2885-2) 6.1 6.5-8.1 L [facility] CenterAlbumin2019-01-25 03:46:00* Test Item Value Reference Range Interpretation Comments Albumin (test code = 1751-7) 2.9 3.5-5.0 L [facility] CenterGlobulin2019-01-25 03:46:00* Test Item Value Reference Range Interpretation Comments Globulin (test code = 86631-6) 3.2 2.3-3.5 [facility] CenterAlbumin/Globulin Ppcci6559-34-37 03:46:00 * Test Item Value Reference Range Interpretation Comments Albumin/Globulin Ratio (test code = 1759-0) 0.9 0.8-2.0 [facility] CenterAlkaline Acltfhdiatf1388-73-28 03:46:00* Test Item Value Reference Range Interpretation Comments Alkaline Phosphatase (test code = 6768-6) 87 40-150 [facility] CenterTriglycerides Ilgpk4299-07-28 03:46:00* Test Item Value Reference Range Interpretation Comments Triglycerides Level (test code = 2571-8) 86 0-149 [facility] CenterCholesterol Aplpr6322-25-34 03:46:00* Test Item Value Reference Range Interpretation Comments Cholesterol Level (test code = 2093-3) 109 0-199 Less than 200 mg/dL Low Ywmv063 - 239 mg/dL Borderline Xbdq504 m g/dl and greater High Risk [facility] CenterLDL Jedezacycgj8069-10-78 03:46:00* Test Item Value Reference Range Interpretation Comments LDL Cholesterol (test code = 2089-1) 55 60-130 L [facility] CenterHDL Dkbdiecphym8467-77-62 03:46:00* Test Item Value Reference Range Interpretation Comments HDL Cholesterol (test code = 2085-9) 37 40-60 L [facility] CenterCholesterol/HDL Mkvvf5154-46-06 03:46:00 * Test Item Value Reference Range Interpretation Comments Cholesterol/HDL Ratio (test code = 9830-1) 2.9 3.0-3.6 L [facility] Centerodium Tckld0876-93-36 03:46:00* Test Item Value Reference Range Interpretation Comments Sodium Level (test code = 2951-2) 144 136-145 [facility] CenterPotassium Iianc5655-30-91 03:46:00* Test Item Value Reference Range Interpretation Comments Potassium Level (test code = 2823-3) 4.2 3.5-5.1 [facility] CenterChloride Agaym4491-95-71 03:46:00* Test Item Value Reference Range Interpretation Comments Chloride Level (test code = 2075-0) 115 98-107 H [facility] CenterCarbon Dioxide Pqckr9274-40-30 03:46:00* Test Item Value Reference Range Interpretation Comments Carbon Dioxide Level (test code = 2028-9) 22 22-29 [facility] CenterAnion Ipr0410-12-64 03:46:00* Test Item Value Reference Range Interpretation Comments Anion Gap (test code = 80344-8) 11.2 8-16 [facility] CenterBlood Urea Vbiepffa7763-92-92 03:46:00* Test Item Value Reference Range Interpretation Comments Blood Urea Nitrogen (test code = 3094-0) 20 7-26 [facility] CenterCreatinine2019-01-25 03:46:00* Test Item Value Reference Range Interpretation Comments Creatinine (test code = 2160-0) 1.00 0.57-1.11 [facility] CenterBUN/Creatinine Ctmlo8873-81-06 03:46:00* Test Item Value Reference Range Interpretation Comments BUN/Creatinine Ratio (test code = 3097-3) 20 6- [facility] CenterEstimat Glomerular Filtration Rate 2018-11-11 03:46:00* Test Item Value Reference Range Interpretation Comments Estimat Glomerular Filtration Rate (test code = 882405071) 54 >60 L Ranges were taken from the National Kidney Disease Education Program and the [facility] literature.Reference ranges:60 or greater: Ceonor49-35 ( for 3 consecutive months): Chronic kidney disease 15 or less: Kidney failureSaint Camillus Medical CenterGlucose Fnyzy2915-77-12 03:46:00* Test Item Value Reference Range Interpretation Comments Glucose Level (test code = UKS2987) 89 74-118 [facility] CenterCalcium Kiyjc5893-96-52 03:46:00* Test Item Value Reference Range Interpretation Comments Calcium Level (test code = 87331-0) 9.0 8.4-10.2 [facility] CenterTotal Rfkzgnvtc6516-40-65 03:46:00* Test Item Value Reference Range Interpretation Comments Total Bilirubin (test code = 1975-2) 0.9 0.2-1.2 [facility] CenterAspartate Amino Transf (AST/SGOT) 2018-11-11 03:46:00* Test Item Value Reference Range Interpretation Comments Aspartate Amino Transf (AST/SGOT) (test code = Aspartate Amino Transf (AST/SGOT)) 34 5-34 [facility] CenterAlanine Aminotransferase (ALT/SGPT) 2018-11-11 03:46:00* Test Item Value Reference Range Interpretation Comments Alanine Aminotransferase (ALT/SGPT) (test code = 1742-6) 18 0-55 [facility]Total Odkmbsr3205-63-03 03:46:00* Test Item Value Reference Range Interpretation Comments Total Protein (test code = 2885-2) 6.1 6.5-8.1 L [facility] CenterAlbumin2019-01-25 03:46:00* Test Item Value Reference Range Interpretation Comments Albumin (test code = 1751-7) 2.9 3.5-5.0 L [facility] CenterGlobulin2019-01-25 03:46:00* Test Item Value Reference Range Interpretation Comments Globulin (test code = 03455-2) 3.2 2.3-3.5 [facility] CenterAlbumin/Globulin Xegwb6025-03-55 03:46:00 * Test Item Value Reference Range Interpretation Comments Albumin/Globulin Ratio (test code = 1759-0) 0.9 0.8-2.0 [facility] CenterAlkaline Zvvpmceeatp7279-43-59 03:46:00* Test Item Value Reference Range Interpretation Comments Alkaline Phosphatase (test code = 6768-6) 87 40-150 [facility] CenterTriglycerides Fugdf5986-08-72 03:46:00* Test Item Value Reference Range Interpretation Comments Triglycerides Level (test code = 2571-8) 86 0-149 [facility] CenterCholesterol Waqop4067-03-79 03:46:00* Test Item Value Reference Range Interpretation Comments Cholesterol Level (test code = 2093-3) 109 0-199 Less than 200 mg/dL Low Nlqf749 - 239 mg/dL Borderline Befb578 m g/dl and greater High Risk [facility] CenterLDL Rnmfukyovsl8737-04-14 03:46:00* Test Item Value Reference Range Interpretation Comments LDL Cholesterol (test code = 2089-1) 55 60-130 L [facility] CenterHDL Svpqdgmkahs5535-23-57 03:46:00* Test Item Value Reference Range Interpretation Comments HDL Cholesterol (test code = 2085-9) 37 40-60 L [facility] CenterCholesterol/HDL Crtlq7154-08-30 03:46:00 * Test Item Value Reference Range Interpretation Comments Cholesterol/HDL Ratio (test code = 9830-1) 2.9 3.0-3.6 L [facility] CenterHemoglobin A1c Tquvacy5176-61-60 03:36:00 * Test Item Value Reference Range Interpretation Comments Hemoglobin A1c Percent (test code = Hemoglobin A1c Percent) 5.9 4.0-7.0 [facility] CenterMagnesium Vthes0834-40-57 03:36:00* Test Item Value Reference Range Interpretation Comments Magnesium Level (test code = 78059-3) 2.1 1.3-2.1 [facility] CenterHemoglobin A1c Ixzjctn2882-41-48 03:36:00 * Test Item Value Reference Range Interpretation Comments Hemoglobin A1c Percent (test code = Hemoglobin A1c Percent) 5.9 4.0-7.0 [facility] CenterMagnesium Jiogn5366-05-25 03:36:00* Test Item Value Reference Range Interpretation Comments Magnesium Level (test code = 84577-6) 2.1 1.3-2.1 [facility] CenterWhite Blood Yjlgj6120-44-94 03:33:00* Test Item Value Reference Range Interpretation Comments White Blood Count (test code = 6690-2) 4.36 4.8-10.8 L [facility] CenterRed Blood Mdnmd6366-22-84 03:33:00* Test Item Value Reference Range Interpretation Comments Red Blood Count (test code = 789-8) 3.85 3.6-5.1 [facility] CenterHemoglobin2019-01-25 03:33:00* Test Item Value Reference Range Interpretation Comments Hemoglobin (test code = 43245-0) 12.7 12.0-16.0 [facility] CenterHematocrit2019-01-25 03:33:00* Test Item Value Reference Range Interpretation Comments Hematocrit (test code = 4544-3) 40.3 34.2-44.1 [facility] CenterMean Corpuscular Csbuuf6988-74-44 03:33:00* Test Item Value Reference Range Interpretation Comments Mean Corpuscular Volume (test code = 787-2) 104.7 81-99 H [facility] CenterMean Corpuscular Daqsrlenfw4792-37-92 03:33:00* Test Item Value Reference Range Interpretation Comments Mean Corpuscular Hemoglobin (test code = 785-6) 33.0 28-32 H [facility] CenterMean Corpuscular Hemoglobin Concent 2018-11-11 03:33:00* Test Item Value Reference Range Interpretation Comments Mean Corpuscular Hemoglobin Concent (test code = 786-4) 31.5 31-35 [facility] CenterRed Cell Distribution Axzgx5572-72-80 03:33:00* Test Item Value Reference Range Interpretation Comments Red Cell Distribution Width (test code = 78096-3) 13.8 11.7 -14.4 [facility] CenterPlatelet Wajin9260-20-19 03:33:00* Test Item Value Reference Range Interpretation Comments Platelet Count (test code = 777-3) 117 140-360 L [facility] CenterNeutrophils (%) (Auto)2018-11-11 03:33:00 * Test Item Value Reference Range Interpretation Comments Neutrophils (%) (Auto) (test code = 97071-6) 56.1 38.7-80.0 [facility] CenterLymphocytes (%) (Auto)2018-11-11 03:33:00 * Test Item Value Reference Range Interpretation Comments Lymphocytes (%) (Auto) (test code = 736-9) 25.2 18.0-39.1 [facility] CenterMonocytes (%) (Auto)2018-11-11 03:33:00* Test Item Value Reference Range Interpretation Comments Monocytes (%) (Auto) (test code = 5905-5) 12.8 4.4-11.3 H [facility] CenterEosinophils (%) (Auto)2018-11-11 03:33:00 * Test Item Value Reference Range Interpretation Comments Eosinophils (%) (Auto) (test code = 713-8) 4.8 0.0-6.0 [facility] CenterBasophils (%) (Auto)2018-11-11 03:33:00* Test Item Value Reference Range Interpretation Comments Basophils (%) (Auto) (test code = 706-2) 0.9 0.0-1.0 [facility] CenterIM GRANULOCYTES %2018-11-11 03:33:00* Test Item Value Reference Range Interpretation Comments IM GRANULOCYTES % (test code = IM GRANULOCYTES %) 0.2 0.0- 1.0 [facility] CenterNeutrophils # (Auto)2018-11-11 03:33:00* Test Item Value Reference Range Interpretation Comments Neutrophils # (Auto) (test code = 751-8) 2.4 2.1-6.9 [facility] CenterLymphocytes # (Auto)2018-11-11 03:33:00* Test Item Value Reference Range Interpretation Comments Lymphocytes # (Auto) (test code = 37033-7) 1.1 1.0-3.2 [facility] CenterMonocytes # (Auto)2018-11-11 03:33:00* Test Item Value Reference Range Interpretation Comments Monocytes # (Auto) (test code = 742-7) 0.6 0.2-0.8 [facility] CenterEosinophils # (Auto)2018-11-11 03:33:00* Test Item Value Reference Range Interpretation Comments Eosinophils # (Auto) (test code = 711-2) 0.2 0.0-0.4 [facility] CenterBasophils # (Auto)2018-11-11 03:33:00* Test Item Value Reference Range Interpretation Comments Basophils # (Auto) (test code = 704-7) 0.0 0.0-0.1 [facility] CenterAbsolute Immature Granulocyte (auto 2018-11-11 03:33:00* Test Item Value Reference Range Interpretation Comments Absolute Immature Granulocyte (auto (lyssa t code = Absolute Immature Granulocyte (auto) 0.01 0-0.1 [facility] CenterWhite Blood Jbili4405-97-20 03:33:00* Test Item Value Reference Range Interpretation Comments White Blood Count (test code = 6690-2) 4.36 4.8-10.8 L [facility] CenterRed Blood Phwln6062-44-53 03:33:00* Test Item Value Reference Range Interpretation Comments Red Blood Count (test code = 789-8) 3.85 3.6-5.1 [facility] CenterHemoglobin2019-01-25 03:33:00* Test Item Value Reference Range Interpretation Comments Hemoglobin (test code = 30012-2) 12.7 12.0-16.0 [facility] CenterHematocrit2019-01-25 03:33:00* Test Item Value Reference Range Interpretation Comments Hematocrit (test code = 4544-3) 40.3 34.2-44.1 [facility] CenterMean Corpuscular Dbzohe4503-12-89 03:33:00* Test Item Value Reference Range Interpretation Comments Mean Corpuscular Volume (test code = 787-2) 104.7 81-99 H [facility] CenterMean Corpuscular Ttnccybqdg1270-19-92 03:33:00* Test Item Value Reference Range Interpretation Comments Mean Corpuscular Hemoglobin (test code = 785-6) 33.0 28-32 H [facility] CenterMean Corpuscular Hemoglobin Concent 2018-11-11 03:33:00* Test Item Value Reference Range Interpretation Comments Mean Corpuscular Hemoglobin Concent (test code = 786-4) 31.5 31-35 [facility] CenterRed Cell Distribution Cejnv9061-19-33 03:33:00* Test Item Value Reference Range Interpretation Comments Red Cell Distribution Width (test code = 12434-2) 13.8 11.7 -14.4 [facility] CenterPlatelet Masqo5840-39-79 03:33:00* Test Item Value Reference Range Interpretation Comments Platelet Count (test code = 777-3) 117 140-360 L [facility] CenterNeutrophils (%) (Auto)2018-11-11 03:33:00 * Test Item Value Reference Range Interpretation Comments Neutrophils (%) (Auto) (test code = 57574-6) 56.1 38.7-80.0 [facility] CenterLymphocytes (%) (Auto)2018-11-11 03:33:00 * Test Item Value Reference Range Interpretation Comments Lymphocytes (%) (Auto) (test code = 736-9) 25.2 18.0-39.1 [facility] CenterMonocytes (%) (Auto)2018-11-11 03:33:00* Test Item Value Reference Range Interpretation Comments Monocytes (%) (Auto) (test code = 5905-5) 12.8 4.4-11.3 H [facility] CenterEosinophils (%) (Auto)2018-11-11 03:33:00 * Test Item Value Reference Range Interpretation Comments Eosinophils (%) (Auto) (test code = 713-8) 4.8 0.0-6.0 [facility] CenterBasophils (%) (Auto)2018-11-11 03:33:00* Test Item Value Reference Range Interpretation Comments Basophils (%) (Auto) (test code = 706-2) 0.9 0.0-1.0 [facility] CenterIM GRANULOCYTES %2018-11-11 03:33:00* Test Item Value Reference Range Interpretation Comments IM GRANULOCYTES % (test code = IM GRANULOCYTES %) 0.2 0.0- 1.0 [facility] CenterNeutrophils # (Auto)2018-11-11 03:33:00* Test Item Value Reference Range Interpretation Comments Neutrophils # (Auto) (test code = 751-8) 2.4 2.1-6.9 [facility] CenterLymphocytes # (Auto)2018-11-11 03:33:00* Test Item Value Reference Range Interpretation Comments Lymphocytes # (Auto) (test code = 70322-7) 1.1 1.0-3.2 [facility] CenterMonocytes # (Auto)2018-11-11 03:33:00* Test Item Value Reference Range Interpretation Comments Monocytes # (Auto) (test code = 742-7) 0.6 0.2-0.8 [facility] CenterEosinophils # (Auto)2018-11-11 03:33:00* Test Item Value Reference Range Interpretation Comments Eosinophils # (Auto) (test code = 711-2) 0.2 0.0-0.4 [facility] CenterBasophils # (Auto)2018-11-11 03:33:00* Test Item Value Reference Range Interpretation Comments Basophils # (Auto) (test code = 704-7) 0.0 0.0-0.1 [facility] CenterAbsolute Immature Granulocyte (auto 2018-11-11 03:33:00* Test Item Value Reference Range Interpretation Comments Absolute Immature Granulocyte (auto (lyssa t code = Absolute Immature Granulocyte (auto) 0.01 0-0.1 [facility] CenterUrine VHQ9802-82-38 10:51:00* Test Item Value Reference Range Interpretation Comments Urine WBC (test code = 5821-4) 0-5 0-5 [facility] CenterUrine LKU8352-57-42 10:51:00* Test Item Value Reference Range Interpretation Comments Urine RBC (test code = 71404-5) NONE 0-5 [facility] CenterUrine Poldszqt8391-24-40 10:51:00* Test Item Value Reference Range Interpretation Comments Urine Bacteria (test code = 78090-8) RARE NONE [facility] CenterUrine Epithelial Fnigj2759-40-32 10:51:00 * Test Item Value Reference Range Interpretation Comments Urine Epithelial Cells (test code = 77022-3) FEW NONE [facility] CenterUrine AKK4111-30-75 10:51:00* Test Item Value Reference Range Interpretation Comments Urine WBC (test code = 5821-4) 0-5 0-5 [facility] CenterU[facility] PIJ0017-30-23 10:51:00* Test Item Value Reference Range Interpretation Comments Urine RBC (test code = 80471-3) NONE 0-5 [facility] CenterU[facility] Bjcawkel8376-39-63 10:51:00* Test Item Value Reference Range Interpretation Comments Urine Bacteria (test code = 31478-8) RARE NONE [facility] CenterUrine Epithelial Zxrij9224-63-14 10:51:00 * Test Item Value Reference Range Interpretation Comments Urine Epithelial Cells (test code = 29829-9) FEW NONE [facility] CenterU[facility] Vitoh7885-85-26 10:38:00* Test Item Value Reference Range Interpretation Comments Urine Color (test code = 5778-6) YELLOW YELLOW [facility] CenterU[facility] Ceejjho9666-33-81 10:38:00* Test Item Value Reference Range Interpretation Comments Urine Clarity (test code = 88550-6) CLEAR CLEAR [facility] CenterUrine Specific Xcbmlsv1767-27-95 10:38:00 * Test Item Value Reference Range Interpretation Comments Urine Specific [place] (test code = 5811-5) 1.020 1.010-1.02 5 [facility] CenterUrine lX2499-94-73 10:38:00* Test Item Value Reference Range Interpretation Comments Urine pH (test code = 32441-9) 6 5-7 [facility] CenterU[facility] Leukocyte Rnnykhou7838-37-65 10:38:00* Test Item Value Reference Range Interpretation Comments Urine Leukocyte Esterase (test code = 5799-2) NEGATIVE NEGATIVE [facility] CenterU[facility] Efpckot6600-37-39 10:38:00* Test Item Value Reference Range Interpretation Comments Urine Nitrite (test code = 78576-0) NEGATIVE NEGATIVE [facility] CenterU[facility] Nfjfnsh6048-84-00 10:38:00* Test Item Value Reference Range Interpretation Comments Urine Protein (test code = 5804-0) NEGATIVE NEGATIVE [facility] CenterUrine Glucose (UA)2018-11-10 10:38:00* Test Item Value Reference Range Interpretation Comments Urine Glucose (UA) (test code = 2349-9) NEGATIVE NEGATIVE [facility] CenterU[facility] Vounrsw3853-95-52 10:38:00* Test Item Value Reference Range Interpretation Comments Urine Ketones (test code = 04333-5) NEGATIVE NEGATIVE [facility] Dadhnftrbpne8876-96-73 10:38:00* Test Item Value Reference Range Interpretation Comments Urine Urobilinogen (test code = 57014-8) 0.2 0.2-1 [facility] Lfwdfohon7804-62-56 10:38:00* Test Item Value Reference Range Interpretation Comments Urine Bilirubin (test code = 1978-6) NEGATIVE NEGATIVE [facility] Ailyg7360-68-93 10:38:00* Test Item Value Reference Range Interpretation Comments Urine Blood (test code = 41513-5) NEGATIVE NEGATIVE [facility] Mxhjr3352-88-71 10:38:00* Test Item Value Reference Range Interpretation Comments Urine Color (test code = 5778-6) YELLOW YELLOW [facility] CenterU[facility] Mdqymeq8236-21-96 10:38:00* Test Item Value Reference Range Interpretation Comments Urine Clarity (test code = 16318-3) CLEAR CLEAR [facility] CenterUrine Specific Jlztvwh3332-18-23 10:38:00 * Test Item Value Reference Range Interpretation Comments Urine Specific [place] (test code = 5811-5) 1.020 1.010-1.02 5 [facility] CenterU[facility] fD8179-90-29 10:38:00* Test Item Value Reference Range Interpretation Comments Urine pH (test code = 95850-0) 6 5-7 [facility] CenterU[facility] Leukocyte Jqejfvir7607-87-00 10:38:00* Test Item Value Reference Range Interpretation Comments Urine Leukocyte Esterase (test code = 5799-2) NEGATIVE NEGATIVE [facility] CenterU[facility] Oejlhvx1703-57-86 10:38:00* Test Item Value Reference Range Interpretation Comments Urine Nitrite (test code = 03867-7) NEGATIVE NEGATIVE [facility] CenterU[facility] Afrjkqv4665-07-10 10:38:00* Test Item Value Reference Range Interpretation Comments Urine Protein (test code = 5804-0) NEGATIVE NEGATIVE [facility] CenterU[facility] Glucose (UA)2018-11-10 10:38:00* Test Item Value Reference Range Interpretation Comments Urine Glucose (UA) (test code = 2349-9) NEGATIVE NEGATIVE [facility] Cubcjjl8518-17-47 10:38:00* Test Item Value Reference Range Interpretation Comments Urine Ketones (test code = 16284-9) NEGATIVE NEGATIVE [facility] CenterU[facility] Jvakdalqqagt6221-55-18 10:38:00* Test Item Value Reference Range Interpretation Comments Urine Urobilinogen (test code = 13888-3) 0.2 0.2-1 [facility] Smfrxmmuf6269-16-74 10:38:00* Test Item Value Reference Range Interpretation Comments Urine Bilirubin (test code = 1978-6) NEGATIVE NEGATIVE [facility] Dxhlq6381-12-76 10:38:00* Test Item Value Reference Range Interpretation Comments Urine Blood (test code = 78156-0) NEGATIVE NEGATIVE [facility] CenterCT BRAIN YX2303-71-12 09:41:00 [place] [address] Patient Name: AMAURY CONTE MR #: [id number] : Age/Sex: 73/F Req #: [id number] Adm Physician: Ordered by: NEL BONNER MD Report #: [id number] Location: ER Room/Bed: Procedure: 0124-[address]/CT [...] intracranial hemorrhage or cortical infarct. 2. Mild steel melter nathaniel microvascular ischemic changes. Signed by: Dr. Salma Love M.D. on 10/19 9:44 AM Dictated By: SALMA LOVE MD 3 Transcribed By: JUAN on 11/10/18943 [employer] SET UP MECH[employer]IC Y TO: NEL BONNER MD Thyroid Stimulating Hormone (TSH)2018-11-10 09:35:00* Test Item Value Reference Range Interpretation Comments Thyroid Stimulating Hormone (TSH) (test code = 28208-3) 1.655 0.350-4.940 [facility] CenterThyroid Stimulating Hormone (TSH) 2018-11-10 09:35:00* Test Item Value Reference Range Interpretation Comments Thyroid Stimulating Hormone (TSH) (test code = 74741-5) 1.655 0.350-4.940 [facility] CenterCHEST SINGLE (PORTABLE)2018-11-10 09:07:00 [facility] [address] [place] [address] Patient Name: AMAURY CONTE MR #: [id number] : 1945 Age/Sex: 73/F Req #: [id number] Adm Physician: Ordered by: NEL BONNER MD Report #: [id number] Location: ER Room/Bed: Procedure: 0124-00 17 DX/CHEST SINGLE (PORTABLE) Exam Date: 11/10/18 [...] 9:09 AM Dictated By: LUCIANA OSWALD MD [id number] Transcribed By: JUAN on 11/10/18908 COPY TO: NEL BONNER MD Prothrombin Yffz0550-96-69 09:04:00* Test Item Value Reference Range Interpretation Comments Prothrombin Time (test code = 5902-2) 15.1 11.9-14.5 H [facility] CenterProthromb Time International Ratio 2018-11-10 09:04:00* Test Item Value Reference Range Interpretation Comments Prothromb Time International Ratio (test code = 6301-6) 1.09 Oral Anticoagulant Therapy INR Values:1. Low Intensity Therapy 1.5 - 2.02 . Moderate Intensity Therapy 2.0 - 3.03. High Intensity Therapy(1) 2.5 - 3. 54. High Intensity Therapy(2) 3.0 - 4.05. Panic Value INR > 5.0 [facility] CenterActivated Partial Thromboplast Time 2018-11-10 09:04:00* Test Item Value Reference Range Interpretation Comments Activated Partial Thromboplast Time (test code = 79127-9) 35.5 23.8-35.5 [facility] CenterProthrombin Mdvp5068-48-58 09:04:00* Test Item Value Reference Range Interpretation Comments Prothrombin Time (test code = 5902-2) 15.1 11.9-14.5 H [facility] CenterProthromb Time International Ratio 2018-11-10 09:04:00* Test Item Value Reference Range Interpretation Comments Prothromb Time International Ratio (test code = 6301-6) 1.09 Oral Anticoagulant Therapy INR Values:1. Low Intensity Therapy 1.5 - 2.02 . Moderate Intensity Therapy 2.0 - 3.03. High Intensity Therapy(1) 2.5 - 3. 54. High Intensity Therapy(2) 3.0 - 4.05. Panic Value INR > 5.0 [facility] CenterActivated Partial Thromboplast Time 2018-11-10 09:04:00* Test Item Value Reference Range Interpretation Comments Activated Partial Thromboplast Time (test code = 60126-6) 35.5 23.8-35.5 [facility] CenterCHEM WKNBJ1014-10-68 16:55:0050[facility]annCHEM ZZVIV7833-51-14 16:55:004.3[facility]annCHEM FFMYD7787-62-43 16:55:96414Fesniaxq HermannCHEM GMPQA3254-97-89 16:55:0025[facility]annCHEM BYLTK2744-78-84 16:55:009.2[facility] HermannCHEM QUEFW7366-89-75 16:55:001.10 [facility]annCHEM NEERB5016-71-32 16:55:0024[facility] HermannCHEM PANEL 2016-10-15 16:55:73695Neahlocl HermannCHEM IDGHX0598-23-46 16:55:42055Irvnumxl HermannCHEM IFXDF4578-51-94 16:55:0011.3[facility] OxxkwvtOKXPLJAJXF1802-97-90 16:55:001.3[facility] OexvsotZTJFAPAMJL7911-64-29 16:55:003.6[facility] KBPIYCYQPD6020-57-36 16:55:000.6[facility] QgvuegoYQOHKEYFGP8042-92-10 16:55:000.7 [facility] JxnwxedAWIKZMMVIL3137-85-51 16:55:000.2[facility] HermannHEMATOLOGY 2016-10-15 16:55:0062.5[facility] RkddhonUOJTWYXSWB9860-90-02 16:55:0022.7[facility] JrrepbkBLSACKNHYE8111-76-69 16:55:003.4[facility] DnjuwagTPBLSPFYUJ0508-71-06 16:55:0010.7[facility] AnqkjoySBFWQIPIRP0847-50-58 16:55:00* Test Item Value Reference Range Interpretation Comments PTT (test code = PTT) 32.6 s 22.9-35.8 [facility] RcyrxkyURXKTQGEMU9317-83-29 16:55:001.26[facility] HermannHEMATOLOGY 2016-10-15 16:55:00* Test Item Value Reference Range Interpretation Comments PT (test code = PT) 16.1 s 12.0-14.7 [facility] XmfdukaFABADUAEHY7002-57-27 16:55:00* Test Item Value Reference Range Interpretation Comments MCH (test code = MCH) 31.1 pg 27.0-31.0 [facility] RyjanehZARZSRNHXC9604-22-13 16:55:0095.1[facility] HermannHEMATOLOGY 2016-10-15 16:55:0032.7[facility] MfkuqdbFULLVMXLNT1376-46-26 16:55:0042.7[facility] LwvohxiIVPDXSIVNC9203-14-72 16:55:009.9[facility] QdqsvthDCOXDMDLGC3353-03-34 16:55:15330Kboehstj KhrpyecSUYCXGDKAC5352-28-78 16:55:0014.0[facility] IOLHZBPZSJ4509-25-30 16:55:004.49[facility] GyfiwmwVKQRFPRINB0459-86-79 16:55:00 5.8[facility] HsgvqrcIGGLLQIMQL9436-01-68 16:55:0014.0[facility] [place]
--- NOTE | 2020-06-02 16:24 | Emergency Department Note ---
History of Present Illnes History of Present Illness Chief Complaint: General Medicine Complaints History of Present Illness This is a 74 year old female WITH CONFUSION AND APPEARS PALE PER FAMILY. 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 Any updates have been documented here. Past Medical History Recent Fever: No Clinical Suspicion of Infectio: No New/Unexplained Change in Ment: No Past Medical History: Hypertension, Diabetes, A-Fib, Hypothyroidism, Cancer, UTI's, Hyperlipedemia Other Medical History: VERTIGO ACUTE RENAL INSUFFICIENCY Uterine Cancer Past Surgical History: Hysterectomy, Pacer/AICD, Cataract Removal Other Surgery: HYST PACER/DEFIB CATARACTS/GLAUCOMA Social History Smoking Cessation: Never Smoker Counseling Performed: No Alcohol Use: None Any Illegal Drug Use: No TB Exposure/Symptoms: No Physically hurt or threatened: No Family History Family history of heart diseas: No Other Last Tetanus: UNK Any Pre-Existing Lines (PICC,: No Review of Systems ROS Narrative Unable to obtain ROS: altered mental status Review of Systems Constitutional: Reports no symptoms EENTM: Reports no symptoms Cardiovascular: Reports no symptoms Respiratory: Reports no symptoms Gastrointestinal: Reports other (DARK STOOLS BUT TAKES IRON) Genitourinary: Reports no symptoms Musculoskeletal: Reports no symptoms Integumentary: Reports no symptoms Neurological: Reports as per HPI Psychological: Reports no symptoms Endocrine: Reports no symptoms Hematological/Lymphatic: Reports no symptoms Physical Exam Related Data Allergies: Uncoded Allergies: STEROIDS (Allergy, Unknown, 11/10/18) Triage Vital Signs Vital Signs Date Time Temp Pulse Resp B/P (MAP) Pulse Ox O2 Delivery O2 Flow Rate FiO2 06/02/20 14:05 97.7 77 18 129/59 100 Room Air Vital signs reviewed: Yes Physical Exam CONSTITUTIONAL Constitutional: Present well-developed, Present well-nourished, Present obese HENT HENT: Present normocephalic, Present atraumatic, Present oropharynx clear/moist, Present nose normal HENT L/R: Present left ext ear normal, Present right ext ear normal EYES Eyes: Reports PERRL, Reports conjunctivae normal NECK Neck: Present ROM normal PULMONARY Pulmonary: Present effort normal, Present breath sounds normal CARDIOVASCULAR Cardiovascular: Present irregular rhythm, Present capillary refill normal, Present normal rate GASTROINTESTINAL Abdominal: Present soft, Present nontender, Present bowel sounds normal GENITOURINARY Genitourinary: Present exam deferred SKIN Skin: Present warm, Present dry, Present pale MUSCULOSKELETAL Musculoskeletal: Present ROM normal NEUROLOGICAL Neurological: Present alert, Present no gross motor or sensory deficits, Present other (ORIENTED TO NAME AND PLACE, NOT YEAR) PSYCHOLOGICAL Psychological: Present mood/affect normal, Present judgement normal Results Laboratory Result Diagram: 06/02/20 1430 06/02/20 1430 Laboratory Laboratory Tests Test 06/02/20 14:30 White Blood Count 4.27 x10e3/uL (4.8-10.8) Red Blood Count 2.16 x10e6/uL (3.6-5.1) Hemoglobin 6.3 g/dL (12.0-16.0) Hematocrit 21.3 % (34.2-44.1) Mean Corpuscular Volume 98.6 fL (81-99) Mean Corpuscular Hemoglobin 29.2 pg (28-32) Mean Corpuscular Hemoglobin Concent 29.6 g/dL (31-35) Red Cell Distribution Width 17.0 % (11.7-14.4) Platelet Count 164 x10e3/uL (140-360) Neutrophils (%) (Auto) 59.3 % (38.7-80.0) Lymphocytes (%) (Auto) 22.7 % (18.0-39.1) Monocytes (%) (Auto) 12.9 % (4.4-11.3) Eosinophils (%) (Auto) 3.7 % (0.0-6.0) Basophils (%) (Auto) 0.9 % (0.0-1.0) Neutrophils # (Auto) 2.5 (2.1-6.9) Lymphocytes # (Auto) 1.0 (1.0-3.2) Monocytes # (Auto) 0.6 (0.2-0.8) Eosinophils # (Auto) 0.2 (0.0-0.4) Basophils # (Auto) 0.0 (0.0-0.1) Absolute Immature Granulocyte (auto 0.02 x10e3/uL (0-0.1) Platelet Estimate Adequate Platelet Morphology Comment Normal Hypochromasia Slight Anisocytosis Slight Prothrombin Time 24.2 seconds (11.9-14.5) Prothromb Time International Ratio 2.02 Activated Partial Thromboplast Time 41.1 seconds (23.8-35.5) Urine Color Yellow (YELLOW) Urine Clarity Hazy (CLEAR) Urine pH 7.5 (5 - 7) Urine Specific Wilson 1.020 (1.010-1.025) Urine Protein Negative (NEGATIVE) Urine Glucose (UA) Negative (NEGATIVE) Urine Ketones Negative (NEGATIVE) Urine Blood Trace (NEGATIVE) Urine Nitrite Negative (NEGATIVE) Urine Bilirubin Negative (NEGATIVE) Urine Urobilinogen 0.2 mg/dL (0.2 - 1) Urine Leukocyte Esterase Negative (NEGATIVE) Urine RBC 0-5 /HPF (0-5) Urine WBC 0-5 /HPF (0-5) Urine Epithelial Cells Few /LPF (NONE) Urine Bacteria Few /HPF (NONE) Sodium Level 147 mmol/L (136-145) Potassium Level 3.9 mmol/L (3.5-5.1) Chloride Level 117 mmol/L (98-107) Carbon Dioxide Level 21 mmol/L (22-29) Anion Gap 12.9 mmol/L (8-16) Blood Urea Nitrogen 40 mg/dL (7-26) Creatinine 1.27 mg/dL (0.57-1.11) Estimat Glomerular Filtration Rate 41 ML/MIN (60-) BUN/Creatinine Ratio 31 (6-25) Glucose Level 117 mg/dL (74-118) Calcium Level 8.7 mg/dL (8.4-10.2) Magnesium Level 2.1 MG/DL (1.3-2.1) Total Bilirubin 0.9 mg/dL (0.2-1.2) Aspartate Amino Transf (AST/SGOT) 36 IU/L (5-34) Alanine Aminotransferase (ALT/SGPT) 15 IU/L (0-55) Alkaline Phosphatase 129 IU/L (40-150) Creatine Kinase 40 IU/L (29-168) Creatine Kinase MB 1.30 ng/mL (0-5.0) Troponin I < 0.001 ng/mL (0-0.300) Total Protein 6.1 g/dL (6.5-8.1) Albumin 2.8 g/dL (3.5-5.0) Globulin 3.3 g/dL (2.3-3.5) Albumin/Globulin Ratio 0.8 (0.8-2.0) Thyroid Stimulating Hormone (TSH) 2.981 uIU/mL (0.350-4.940) Lab results reviewed: Yes Imaging Imaging results reviewed: Yes Impressions EXAMINATION: CHEST SINGLE (PORTABLE) INDICATION: Altered mental status. COMPARISON: None FINDINGS: TUBES and LINES: Single lead cardiac pacemaker overlying the left chest wall. LUNGS: Normal lung volumes. Lungs are clear. No consolidations. There is bilateral hilar prominence suggestive of pulmonary vascular congestion. PLEURA: No pleural effusion or pneumothorax. HEART AND MEDIASTINUM: The cardiomediastinal silhouette is enlarged. Atherosclerotic calcification of the thoracic aortic knob. BONES AND SOFT TISSUES: No acute osseous lesion. Soft tissues are unremarkable. UPPER ABDOMEN: No free air under the diaphragm. IMPRESSION: Cardiomegaly with pulmonary vessel congestion. No focal consolidation, pleural effusion or pneumothorax. Signed by: Ayesha Coats MD on 06/02/2020 3:24 PM EXAMINATION: Head CT HISTORY: 74-year-old female with weakness, altered mental status COMPARISON: Head CT 04/20/2020 TECHNIQUE: Helical axial images of the head were obtained. Reformatted coronal and sagittal images from the axial data. Dose modulation, iterative reconstruction, and/or weight based adjustment of the mA/kV was utilized to reduce the radiation dose to as low as reasonably achievable. Image quality: Motion/streaking artifact limits the evaluation of the skull base and posterior cranial fossa. FINDINGS: Parenchyma: 1. [id number] chronic microvascular ischemic changes, stable compared to head CT of 04/20/2020 2. No mass or hemorrhage. No CT evidence of acute territorial vascular insult. Extra-axial spaces:No abnormal density. No extra-axial fluid collections Brain volume: Normal for age. Ventricles: No hydrocephalus or displacement. Arteries: No density suggestive of thrombus. Dural sinuses: No abnormal density. Foramen magnum: No mass, Chiari malformation, or basilar invagination. Sella: No obvious mass. Paranasal/mastoid sinuses: Imaged portions unremarkable. Skull/Scalp: No lytic or blastic lesions. No fractures. IMPRESSION: 1. No acute intracranial abnormality. 2. Stable mild to moderate chronic microvascular ischemic changes compared to head CT of 04/20/2020. Signed by: Dr. Kiki Love M.D. on 06/02/2020 3:28 PM Procedures 12 Lead ECG Interpretation ECG Interpretation : ECG: ECG 1 Catalogue Maker: Interpreted by ED physician Date: Jun 02, 2020 Time: 14:45 Rhythm: atrial fibrillation Ectopy: PVC's (OCCASIONAL) Rate: normal (67) QRS axis: normal Conduction: right bundle branch block ST segments normal: Yes T waves flattening: II, III, aVF, V4, V5, V6 Clinical Impression: abnormal ECG Critical Care Time Total Critical Care Time (min): 45 Critcal care necessary due to: circulatory failure Critcal care time spent by me: discussion w consultants, discussion w primary provider, evaluation patient response to tx, order/perform tx or interventions, order/review laboratory studies, re-evaluation of patient condition, review of old charts Assessment & Plan Medical Decision Making MDM AMS AND ? GI BLEED, RECENT ADMIT FOR GI BLEED/HEPATIC ENCEPHALOPATHY/E. COLI UTI - CBC, CHEM, ECG, CARDIACS, COAG'S, NH3, LACTIC, BLOOD CX'S, UA/CX, CXR, CT BRAIN - R/O ANEMIA/GI BLEED, COAGULOPATHY, RENAL INSUFF, HEPATIC ENCEPHALOPATHY, SEPSIS, UTI, CEREBRAL BLEED Reassessment Reassessment HGB 6.3, PT INR 2.03 - WILL GIVE PROTONIX, OCTREOTIDE, TRANSFUSE PRBC'S AND PLASMA, GIVE VIT K. I SPOKE WITH DR PETERSON FOR ADMISSION AND DR Sofi OLSON Assessment & Plan Final Impression: (1) GI bleed (2) Altered mental status (3) Renal insufficiency (4) Coagulopathy (5) Anemia Depart Disposition: ADMITTED Last Vital Signs Date Time Temp Pulse Resp B/P (MAP) Pulse Ox O2 Delivery O2 Flow Rate FiO2 06/02/20 14:05 97.7 77 18 129/59 100 Room Air Home Meds Active Scripts Ceftriaxone Sodium (CEFTRIAXONE) 1 Gm Vial, 1 GM IV DAILY for 10 Days, #10 VIAL 0 Refills Prov:SNEHA ELAM HOISTING PILE DRIVING ENGINEER 04/26/20 Apixaban (Eliquis) 2.5 Mg Tablet, 2.5 MG PO Q12H for 30 Days Prov:LAWANDA COOK HOISTING PILE DRIVING ENGINEER 04/22/20 Lactulose (LACTULOSE) 20 Gm/30 Ml Solution, 30 ML PO DAILY@0600 for 30 Days, EACH Prov:LAWANDA COOK HOISTING PILE DRIVING ENGINEER 04/21/20 Ferrous Sulfate (FERROUS SULFATE) 325 Mg Tablet, 325 MG PO DAILY@0600 for 30 Days Prov:LAWANDA COOK HOISTING PILE DRIVING ENGINEER 04/21/20 Ascorbic Acid (ASCORBIC ACID) 500 Mg Tablet, 500 MG PO DAILY, #30 TAB Prov:LAWANDA COOK HOISTING PILE DRIVING ENGINEER 04/21/20 Pantoprazole Sodium* (PROTONIX) 40 Mg Tablet.dr, 40 MG PO ACB for 30 Days, TAB Prov:LAWANDA COOK HOISTING PILE DRIVING ENGINEER 04/21/20 Meclizine Hcl (MECLIZINE HCL) 12.5 Mg Tablet, 25 MG PO BID PRN for DIZZINESS, #30 TAB Prov:LAWANDA COOK HOISTING PILE DRIVING ENGINEER 04/21/20 Tramadol Hcl (ULTRAM) 50 Mg Tablet, 50 MG PO Q6HR PRN for Mild Pain (1-3) or Fever>100.8, #12 TAB Prov:SHANKAR NEWMAN DO 04/20/20 Reported Medications Levothyroxine Sodium (LEVOTHYROXINE SODIUM) 88 Mcg Tablet, 88 MCG PO DAILY, #30 TAB 04/20/20 Lisinopril (LISINOPRIL) 10 Mg Tablet, 20 MG PO DAILY, #30 TAB 04/07/20 Furosemide (LASIX) 20 Mg Tablet, 20 MG PO DAILY, #30 TAB 04/07/20 Metoprolol Succinate (METOPROLOL SUCCINATE) 25 Mg Tab.er.24h, 1 TAB PO DAILY 04/07/20 Fenofibrate Nanocrystallized (FENOFIBRATE) 145 Mg Tablet, 160 MG PO DAILY 04/07/20 Isosorbide Mononitrate (ISOSORBIDE MONONITRATE ER) 30 Mg Tab.er.24h, 30 MG PO DAILY, #30 TAB 04/07/20 Mecobalamin (B12 Active) 1,000 Mcg Tab.chew, 1 TAB PO DAILY 04/07/20 Medications in the ED Pantoprazole Sodium 80 mg ONCE STAT IV ; Start 06/02/20 at 14:33; Stop 06/02/20 at 14:40; Status DC Sodium Chloride 250 ml @ 0 mls/hr ONCE ONCE IV ; Start 06/02/20 at 15:15; Stop 06/02/20 at 15:16; Status DC Octreotide Acetate 0.05 mg ONCE STAT IV ; Start 06/02/20 at 15:14; Stop 06/02/20 at 15:17; Status DC Octreotide Acetate 500 mcg/ Sodium Chloride 251 ml @ 25.1 mls/hr Q10H IV ; Start 06/02/20 at 15:15; Stop 07/02/20 at 15:14 Phytonadione 10 mg ONCE ONCE SQ ; Start 06/02/20 at 15:30; Stop 06/02/20 at 15:31; Status DC NEL BONNER MD Jun 02, 2020 16:23
[2020-06-02 16:32] LABS: B-TYPE NATRIURETIC PEPTIDE2 199.5 pg/mL (0-100)
[2020-06-02] MEDS: OCTREOTIDE ACETATE 500 MCG in SODIUM CHLORIDE 0.9% 250ML 250 ML IV SCH (16:38)
--- NOTE | 2020-06-02 17:33 | NUR ---
Received patient via stretcher from ER. AAOx2 to person, place. Respirations even and unlabored. Tele #[phone] with paced on demand. Oriented patient to room. Instructed to use call light for assistance. Voiced understanding. Will continue to monitor.
[2020-06-02] MEDS ORDERED: METFORMIN HCL500 MG PO (18:05)
[2020-06-02] MEDS ORDERED: HYDROCHLOROTHIA25 MG PO (18:05)
[2020-06-02] MEDS ORDERED: MECLIZINE HCL 12.5 MG TAB PO PRN (18:15)
[2020-06-02] MEDS ORDERED: HYDRALAZINE HCL 20 MG/ML VIAL IV PRN (18:15)
[2020-06-02] MEDS ORDERED: DEXTROSE 50% SYRINGE 50 ML IV PRN (18:15)
[2020-06-02] MEDS ORDERED: ACETAMINOPHEN 325 MG TAB PO PRN (18:15)
[2020-06-02] MEDS ORDERED: ONDANSETRON HCL INJ 2MG/ML 2ML 2 MG/ML VIAL IV PRN (18:15)
--- NOTE | 2020-06-02 19:00 | NUR ---
RECEIVED PATIENT IN BEDSIDE SHIFT REPORT. PATIENT RESTING IN BED AT THIS TIME. BREATHING EVEN AND NON LABORED. TELE ON. NO S&S OF DISTRESS NOTED. BED LOCKED IN LOWEST POSITION, SIDE RAILS UPX2, CALL LIGHT IN REACH.
--- NOTE | 2020-06-02 19:10 | NUR ---
Report given to oncoming nurse of patient's status. No s/s of acute distress noted. Side rails upx2, call light within reach, bed alarm on.
[2020-06-02 20:47] LABS: BASOPHILS % 0.8 % (0.0-1.0); EOSINOPHILS # (AUTO) 0.2 (0.0-0.4); EOSINOPHILS % 3.9 % (0.0-6.0); LYMPHOCYTES % 25.4 % (18.0-39.1); MEAN CORPUSCULAR HEMOGLOBIN 28.6 pg (28-32); MEAN CORPUSCULAR HGB CONC 29.2 g/dL (31-35); MEAN CORPUSCULAR VOLUME 98.1 fL (81-99); MONOCYTES # (AUTO) 0.5 (0.2-0.8); MONOCYTES % 13.2 % (4.4-11.3); NEUTROPHILS # (AUTO) 2.2 (2.1-6.9); NEUTROPHILS % 56.2 % (38.7-80.0); PLATELET COUNT 142 x10e3/uL (140-360); RED BLOOD COUNT 2.06 x10e6/uL (3.6-5.1); RED CELL DISTRIBUTION WIDTH 16.9 % (11.7-14.4)
[2020-06-02] MEDS: INSULIN LISPRO 100 UNIT/1 ML 3ML VIAL SQ SCH (20:49)
[2020-06-02 20:50] LABS: HEMATOCRIT 20.2 % (34.2-44.1); HEMOGLOBIN 5.9 g/dL (12.0-16.0)
[2020-06-02 21:07] LABS: CREATINE KINASE MB 1.2 ng/mL (0-5.0)
[2020-06-02] MEDS: PANTOPRAZOLE 40 MG 10ML VIAL IV SCH (21:33)
[2020-06-02] MEDS ORDERED: SODIUM CHLORIDE 0.9% 250ML 250 ML ONE (21:34)
--- NOTE | 2020-06-02 21:50 | NUR ---
FIRST UNIT OF BLOOD STARTED AT THIS TIME. VERIFIED BLOOD UNIT AT BEDSIDE WITH KEV RN AT 2498. VITAL SIGNS STABLE. THIS NURSE TO STAY IN ROOM FOR 15 MINUTES TO MONITOR PATIENT.
[2020-06-02] MEDS: TRAMADOL HCL 50 MG TAB PO PRN (22:25)
[2020-06-02 23:57] LABS: FERRITIN 11.95 ng/mL (4.63-204.00)
[2020-06-03] VITALS (20 sets, daily range): BP systolic 98–121; BP diastolic 44–67
[2020-06-03] MEDS ORDERED: SODIUM CHLORIDE 0.9% 250ML 250 ML ONE ×2 (00:50→04:35)
--- NOTE | 2020-06-03 01:30 | NUR ---
SECOND UNIT OF BLOOD STARTED AT THIS TIME. BLOOD UNIT VERIFIED AT BEDSIDE WITH LISBET RN AT 0125. THIS NURSE TO STAY IN PATIENT'S ROOM FOR 15MINUTES TO MONITOR FOR S&S OF TRANSFUSION REACTION.
[2020-06-03] MEDS ORDERED: OCTREOTIDE ACETATE 0 ML ONE (02:11)
[2020-06-03] MEDS: OCTREOTIDE ACETATE 500 MCG in SODIUM CHLORIDE 0.9% 250ML 250 ML IV SCH ×2 (03:00→14:16)
--- NOTE | 2020-06-03 04:45 | NUR ---
PLASMA TRANSFUSION BEGAN AT THIS TIME. PLASMA VERIFIED AT BEDSIDE WITH ELIZABETH SNIDER. THIS NURSE TO STAY IN ROOM WITH PATIENT FOR FIRST 15 MINUTES TO MONITOR FOR TRANSFUSION REACTION.
[2020-06-03] MEDS: LEVOTHYROXINE SODIUM 88 MCG TAB PO SCH (06:26)
[2020-06-03 06:37] LABS: BASOPHILS # (AUTO) 0.1 (0.0-0.1); BASOPHILS % 1.3 % (0.0-1.0); EOSINOPHILS # (AUTO) 0.2 (0.0-0.4); EOSINOPHILS % 4.3 % (0.0-6.0); HEMATOCRIT 25.7 % (34.2-44.1); HEMOGLOBIN 7.9 g/dL (12.0-16.0); LYMPHOCYTES # (AUTO) 1.1 (1.0-3.2); LYMPHOCYTES % 27.4 % (18.0-39.1); MEAN CORPUSCULAR HEMOGLOBIN 28.7 pg (28-32); MEAN CORPUSCULAR HGB CONC 30.7 g/dL (31-35); MEAN CORPUSCULAR VOLUME 93.5 fL (81-99); MONOCYTES # (AUTO) 0.6 (0.2-0.8); MONOCYTES % 15.2 % (4.4-11.3); NEUTROPHILS % 51.5 % (38.7-80.0); PLATELET COUNT 133 x10e3/uL (140-360); RED BLOOD COUNT 2.75 x10e6/uL (3.6-5.1); RED CELL DISTRIBUTION WIDTH 18.6 % (11.7-14.4)
[2020-06-03 07:02] LABS: ALBUMIN 2.9 g/dL (3.5-5.0); ALBUMIN/GLOBULIN RATIO 0.9 (0.8-2.0); CALCIUM 8.7 mg/dL (8.4-10.2); CREATININE, SERUM 1.29 mg/dL (0.57-1.11)
[2020-06-03 07:28] LABS: CREATINE KINASE MB 1.5 ng/mL (0-5.0)
--- NOTE | 2020-06-03 07:40 | NUR ---
PATIENT IS AWAKE, ALERT, AND IN STABLE CONDITION WITH NO S/S OF RESPIRATORY DISTRESS. NO PAIN VOICED. EDEMA NOTED TO BILATERAL LOWER EXTREMITIES. TELEMETRY APPLIED. KINNEY INTACT ANDD RAINING- URINE IS DARK YARELY IN COLOR. BED ALARM APPLIED. CALL LIGHT IS WITHIN REACH, PATIENT INSTRUCTED TO CALL FOR ASSISTANCE.
[2020-06-03] MEDS: FUROSEMIDE 20 MG TAB PO SCH (08:21)
[2020-06-03] MEDS: ISOSORBIDE MONONITRATE 30 MG TAB CR PO SCH (08:21)
[2020-06-03] MEDS: FENOFIBRATE 160 MG TAB PO SCH (08:21)
[2020-06-03] MEDS: METOPROLOL SUCCINATE 25 MG TAB XL PO SCH (08:21)
[2020-06-03] MEDS: PANTOPRAZOLE 40 MG 10ML VIAL IV SCH ×2 (08:21→21:05)
[2020-06-03] MEDS: HYDROCHLOROTHIAZIDE 25 MG TAB PO SCH (08:21)
[2020-06-03] MEDS: INSULIN LISPRO 100 UNIT/1 ML 3ML VIAL SQ SCH ×4 (11:27→21:00)
[2020-06-03] MEDS ORDERED: LINZESS PO (16:10)
--- NOTE | 2020-06-03 19:14 | NUR ---
PATIENT IS IN STABLE CONDITION WITH NO S/S OF RESPIRATORY DISTRESS. NO PAIN VOICED. TELEMETRY APPLIED. KINNEY INTACT AND DRAINING- URINE LIGHT YARELY. BED ALARM APPLIED. CALL LIGHT IS WITHIN REACH, PATIENT INSTRUCTED TO CALL FOR ASSISTANCE. BEDSIDE SHIFT REPORT GIVEN TO ONCOMING NURSE.
--- NOTE | 2020-06-03 19:54 | NUR ---
RECEIVED PT IN BED AOX2 .RESPIRATIONS ARE EVEN AND UNLABORED .TELE #21 AFIB F/C DRAINING CLEAR YELLOW URINE .SKIN INTACT .CALL LIGHT WITH IN REACH ,CONTINUE TO MONITOR
[2020-06-04] VITALS (10 sets, daily range): BP systolic 99–120; BP diastolic 38–62
[2020-06-04] MEDS: OCTREOTIDE ACETATE 500 MCG in SODIUM CHLORIDE 0.9% 250ML 250 ML IV SCH ×3 (00:33→17:15)
[2020-06-04] MEDS: TRAMADOL HCL 50 MG TAB PO PRN (01:18)
[2020-06-04] MEDS: LEVOTHYROXINE SODIUM 88 MCG TAB PO SCH (05:39)
--- NOTE | 2020-06-04 06:08 | NUR ---
PT C/O GIVEN TRAMADOL ,CALL LIGHT WITH IN REACH ,CONTINUE TO MONITOR
[2020-06-04 06:17] LABS: BASOPHILS # (AUTO) 0.1 (0.0-0.1); BASOPHILS % 1.4 % (0.0-1.0); EOSINOPHILS # (AUTO) 0.3 (0.0-0.4); EOSINOPHILS % 7.3 % (0.0-6.0); HEMATOCRIT 26.5 % (34.2-44.1); LYMPHOCYTES # (AUTO) 1.2 (1.0-3.2); LYMPHOCYTES % 34.6 % (18.0-39.1); MEAN CORPUSCULAR HEMOGLOBIN 28.6 pg (28-32); MEAN CORPUSCULAR HGB CONC 30.2 g/dL (31-35); MEAN CORPUSCULAR VOLUME 94.6 fL (81-99); MONOCYTES # (AUTO) 0.6 (0.2-0.8); MONOCYTES % 15.9 % (4.4-11.3); NEUTROPHILS # (AUTO) 1.5 (2.1-6.9); NEUTROPHILS % 40.5 % (38.7-80.0); PLATELET COUNT 134 x10e3/uL (140-360); RED CELL DISTRIBUTION WIDTH 18.1 % (11.7-14.4)
[2020-06-04 06:33] LABS: INR 1.52; PROTHROMBIN TIME 19.2 seconds (11.9-14.5)
[2020-06-04 06:34] LABS: PARTIAL THROMBOPLASTIN TIME 38.7 seconds (23.8-35.5)
[2020-06-04 06:44] LABS: ALBUMIN 2.9 g/dL (3.5-5.0); ANION GAP 12.2 mmol/L (8-16); CALCIUM 8.2 mg/dL (8.4-10.2); CREATININE, SERUM 1.38 mg/dL (0.57-1.11); POTASSIUM 4.2 mmol/L (3.5-5.1)
--- NOTE | 2020-06-04 07:20 | NUR ---
PATIENT IS ALERT AND IN STABLE CONDITION WITH NO S/S OF RESPIRATORY DISTRESS. NO PAIN VOICED. TELEMETRY APPLIED. KINNEY INTACT AND RAINING- URINE IS LIGHT YARELY IN COLOR. DIAPER APPLIED. BED ALARM APPLIED. CALL LIGHT IS WITHIN REACH, PATIENT INSTRUCTED TO CALL FOR ASSISTANCE.
[2020-06-04] MEDS: INSULIN LISPRO 100 UNIT/1 ML 3ML VIAL SQ SCH ×4 (07:30→21:00)
--- NOTE | 2020-06-04 07:39 | NUR ---
BEDSIDE REPORT GIVEN TO THE ONCOMING NURSE
[2020-06-04] MEDS: FENOFIBRATE 160 MG TAB PO SCH (08:38)
[2020-06-04] MEDS: ISOSORBIDE MONONITRATE 30 MG TAB CR PO SCH (08:40)
[2020-06-04] MEDS: HYDROCHLOROTHIAZIDE 25 MG TAB PO SCH (08:41)
[2020-06-04] MEDS: FUROSEMIDE 20 MG TAB PO SCH (08:41)
[2020-06-04] MEDS: METOPROLOL SUCCINATE 25 MG TAB XL PO SCH (08:41)
[2020-06-04] MEDS: PANTOPRAZOLE 40 MG 10ML VIAL IV SCH ×2 (08:41→21:35)
[2020-06-04] MEDS: IRON SUCROSE 100 MG in SODIUM CHLORIDE 0.9% 100 ML 100 ML IV SCH (10:41)
[2020-06-04] MEDS ORDERED: HEPARIN SOD (PORCINE) 1000 UNIT/ML SDV ONE (15:40)
--- NOTE | 2020-06-04 18:40 | NUR ---
REACHED OUT TO DR. OLSON TO INFORM HIM THE NUCLEAR MEDICINE EXAM IS COMPLETED AND NOW BEING READ. INQUIRED IF PATIENT SHOULD REMAIN NPO- AWAITING RESPONSE/ORDER.
--- NOTE | 2020-06-04 19:06 | NUR ---
PATIENT IS IN STABLE CONDITION WITH NO S/S OF RESPIRATORY DISTRESS. NO PAIN VOICED. TELEMETRY APPLIED. KINNEY INTACT AND DRAINING. DR. OLSON INFORMED OF NUCLEAR MEDICINE EXAM COMPLETION AND PATIENT REMAINING NPO. CALL LIGHT IS WITHIN REACH, PATIENT INSTRUCTED TO CALL FOR ASSISTANCE. BEDSIDE SHIFT REPORT GIVEN TO ONCOMING NURSE.
--- NOTE | 2020-06-04 19:43 | Diagnostic Imaging Report ---
Tagged-RBC GI Bleed Study Clinical information: 74-year-old female with coffee-ground stools and anemia. Discussion: The patient's own red blood cells were labeled with 20 mCi of technetium-99m pertechnetate using the in vitro method (UltraTag). Dynamic images of the abdomen were obtained through 60 minutes. Distribution of tracer activity appears physiologic throughout the abdomen. No abnormal accumulation of tracer is seen within the gastrointestinal lumen. Impression: No scan evidence of active gastrointestinal bleeding at this time. Signed by: Dr. Nicole Farah M.D. on 06/04/2020 7:39 PM
[2020-06-04 20:29] LABS: BASOPHILS % 0.9 % (0.0-1.0); EOSINOPHILS # (AUTO) 0.3 (0.0-0.4); EOSINOPHILS % 6.6 % (0.0-6.0); HEMATOCRIT 29.4 % (34.2-44.1); HEMOGLOBIN 8.8 g/dL (12.0-16.0); LYMPHOCYTES # (AUTO) 1.1 (1.0-3.2); LYMPHOCYTES % 26.1 % (18.0-39.1); MEAN CORPUSCULAR HEMOGLOBIN 28.9 pg (28-32); MEAN CORPUSCULAR HGB CONC 29.9 g/dL (31-35); MEAN CORPUSCULAR VOLUME 96.7 fL (81-99); MONOCYTES # (AUTO) 0.7 (0.2-0.8); MONOCYTES % 16.7 % (4.4-11.3); NEUTROPHILS # (AUTO) 2.2 (2.1-6.9); NEUTROPHILS % 49.5 % (38.7-80.0); PLATELET COUNT 140 x10e3/uL (140-360); RED BLOOD COUNT 3.04 x10e6/uL (3.6-5.1); RED CELL DISTRIBUTION WIDTH 17.9 % (11.7-14.4)
--- NOTE | 2020-06-04 20:46 | NUR ---
RECEIVED PT LYING IN THE BED AOX2 .DENIES PAIN .NO ACUTE DISTRESS NOTED CALL LIGHT WITH IN REACH .CONTINUE TO MONITOR
[2020-06-05] VITALS (9 sets, daily range): BP systolic 108–132; BP diastolic 40–65
[2020-06-05] MEDS: TRAMADOL HCL 50 MG TAB PO PRN ×2 (00:45→23:20)
--- NOTE | 2020-06-05 01:42 | Progress Note ---
DATE: 06/04/2020 CONSULTING PHYSICIAN: Includes Dr. Pedro Mcfadden. SUBJECTIVE: The patient is lying supine in bed. Denies any fever or chills, but she does complain of pain with urination. She feels "unbalanced," has been working with physical therapy. There is a rolling walker and bedside commode at the bedside. She had some mild shortness of breath today. She reports that her cough is due to eating ice. Her last bowel movement was about 5 days ago, but then again she has had poor appetite prior to arrival here. Denies any nausea, vomiting. OBJECTIVE: Per telemetry, ventricularly paced. Heart rate 62. VITAL SIGNS: Temperature 98.4. She has been afebrile. Pulse 65, blood pressure 103/39, respirations 18, and oxygen saturation 98%. GENERAL: Supine, in no acute distress. LUNGS: Clear to auscultation. Respiratory pattern even and unlabored. No supplemental oxygen. HEENT: EOMI. NECK: Supple. CARDIOVASCULAR: Regular rate and rhythm. No murmur. ABDOMEN: Bowel sounds positive. Soft, nontender, obese. Lovelace catheter with melecio urine. EXTREMITIES: No pitting edema. No clubbing, cyanosis, or signs of DVT. NEUROLOGIC: GCS 15. Nonfocal. LABORATORY DATA: WBCs 3.58, hemoglobin 8 (7.9), hematocrit 26.5 (25.7), platelets 134. Sodium 142, potassium 4.2, chloride 113, CO2 of 21. BUN 33, creatinine 1.38, estimated GFR 37, glucose 117, total bilirubin 2.1. AST 69, ALT 24, alkaline phosphatase 107, ammonia level 121. On 06/02, COVID was negative. Fingerstick blood glucose levels 137, 104, 91, 87. The patient had a GI bleed scan today, which was negative per Dr. Mcfadden with Gastroenterology. EGD in the morning as planned to re-evaluate the gastric ulcer, which was seen in April. The patient has had 2 units of blood and 1 unit FFP since admission. On 06/03, echocardiogram revealed an ejection fraction 60% to 65%. Urinalysis with culture and sensitivity pending. ASSESSMENT AND PLAN: 1. Acute blood loss anemia, likely gastrointestinal bleed with iron deficiency, positive for gastric ulcer in April 2020. Continue to monitor H and H, hemoglobin 8.0 today. We will await remaining GI workup. No obvious bleeding. 2. Controlled hypertension with chronic kidney disease 3. Blood pressure 103/39 this morning. Continue same and monitor. 3. Controlled type 2 diabetes mellitus with chronic kidney disease stage 3, glucose 117 on chemistry. Blood glucose has been stable. Continue sliding scale insulin. 4. Atrial fibrillation with heart rate controlled, heart rate 65. Anticoagulation held. 5. Chronic kidney disease 3. BUN 33, creatinine 1.38, estimated GFR is 37. Continue to monitor. 6. Hypothyroidism. Continue levothyroxine 88 mcg daily. 7. Possible urinary tract infection. We will recollect UA culture and sensitivity. She is afebrile. WBCs 3.58. 8. Permanent pacemaker in situ. 9. Prophylaxis. Protonix, octreotide. Time spent 35 minutes. Dictated by Nikunj Andres NP MD JOSE NuñezP/LESIA /[id number]
[2020-06-05] MEDS: OCTREOTIDE ACETATE 500 MCG in SODIUM CHLORIDE 0.9% 250ML 250 ML IV SCH ×2 (02:51→17:49)
[2020-06-05] MEDS: LEVOTHYROXINE SODIUM 88 MCG TAB PO SCH (06:00)
--- NOTE | 2020-06-05 06:03 | NUR ---
PT IS NPO FOR EGD .C/O LEG PAIN AND GIVEN TRAMADOL .CONTINUE TO MONITOR
--- NOTE | 2020-06-05 07:00 | NUR ---
RECEIVED BEDSIDE REPORT FROM OFF GOING NIGHT NURSE. PATIENT IN STABLE CONDITION, NO S/S OF DISTRESS NOTED. NO PAIN VOICED. TELEMETRY APPLIED. KINNEY APPLIED AND PATENT. IV SITE ASYMPTOMATIC AND PATENT, TRANSPARENT DRESSING C/D/I. BED ALARM APPLIED. BED IN LOWEST POSITION AND LOCKED, SIDE RAILS X 2, NON SKID SOCKS APPLIED. CALL LIGHT WITHIN REACH.
[2020-06-05 07:03] LABS: BASOPHILS % 1.1 % (0.0-1.0); EOSINOPHILS # (AUTO) 0.3 (0.0-0.4); EOSINOPHILS % 7.6 % (0.0-6.0); HEMATOCRIT 26.8 % (34.2-44.1); HEMOGLOBIN 8.1 g/dL (12.0-16.0); LYMPHOCYTES % 26.8 % (18.0-39.1); MEAN CORPUSCULAR HEMOGLOBIN 28.9 pg (28-32); MEAN CORPUSCULAR HGB CONC 30.2 g/dL (31-35); MEAN CORPUSCULAR VOLUME 95.7 fL (81-99); MONOCYTES # (AUTO) 0.5 (0.2-0.8); MONOCYTES % 13.8 % (4.4-11.3); NEUTROPHILS # (AUTO) 1.8 (2.1-6.9); NEUTROPHILS % 50.4 % (38.7-80.0); PLATELET COUNT 136 x10e3/uL (140-360); RED CELL DISTRIBUTION WIDTH 17.4 % (11.7-14.4)
[2020-06-05 07:12] LABS: INR 1.41; PROTHROMBIN TIME 18.1 seconds (11.9-14.5)
--- NOTE | 2020-06-05 07:21 | NUR ---
BEDSIDE REPORT GIVEN TO THE ONCOMING NURSE
[2020-06-05 07:24] LABS: ALBUMIN 2.9 g/dL (3.5-5.0); ANION GAP 11.8 mmol/L (8-16); CALCIUM 8.4 mg/dL (8.4-10.2); CREATININE, SERUM 1.28 mg/dL (0.57-1.11); POTASSIUM 3.8 mmol/L (3.5-5.1)
[2020-06-05 07:25] LABS: ALBUMIN/GLOBULIN RATIO 0.9 (0.8-2.0)
[2020-06-05] MEDS: INSULIN LISPRO 100 UNIT/1 ML 3ML VIAL SQ SCH ×4 (07:30→21:00)
[2020-06-05] MEDS: FENOFIBRATE 160 MG TAB PO SCH (09:00)
[2020-06-05] MEDS: IRON SUCROSE 100 MG in SODIUM CHLORIDE 0.9% 100 ML 100 ML IV SCH (09:00)
[2020-06-05] MEDS: PANTOPRAZOLE 40 MG 10ML VIAL IV SCH ×2 (09:34→21:00)
[2020-06-05] MEDS: FUROSEMIDE 20 MG TAB PO SCH (09:36)
[2020-06-05] MEDS: ISOSORBIDE MONONITRATE 30 MG TAB CR PO SCH (09:36)
[2020-06-05] MEDS: HYDROCHLOROTHIAZIDE 25 MG TAB PO SCH (09:42)
[2020-06-05] MEDS: METOPROLOL SUCCINATE 25 MG TAB XL PO SCH (09:43)
[2020-06-05] MEDS ORDERED: SODIUM CHLORIDE 0.9% 250ML 250 ML ONE (11:09)
--- NOTE | 2020-06-05 11:56 | NUR ---
PATIENT OFF THE UNIT @ 1115, PATIENT WENT TO THE OR FOR EGD. PATIENT IN STABLE CONDTION, NO S/S OF DISTRESS NOTED. NO PAIN VOICED.
--- NOTE | 2020-06-05 12:23 | NUR ---
PATIENT ARRIVE TO THE UNIT @ 1223. PATIENT IN STABLE CONDITION, NO S/S OF DISTRESS NOTED. BED ALARM APPLIED. BED IN LOWEST POSITION AND LOCKED, SIDE RAILS X 2. CALL LIGHT WITHIN REACH.
--- NOTE | 2020-06-05 12:34 | Operative Report ---
DATE OF PROCEDURE: 06/05/2020 SURGEON: Pedro Mcfadden MD PROCEDURE: EGD with biopsies. INDICATIONS FOR EGD: Anemia, history of black stools, history of gastric ulcer, and recent EGD. MEDICATIONS: The patient was done under MAC, please see anesthesiologist's note. PROCEDURE IN DETAIL: With the patient in the left lateral decubitus position, a flexible fiberoptic Olympus gastroscope was introduced into the esophagus under direct visualization without any difficulty. A minute nodule was noted in the cervical esophagus and that was biopsied. The rest of the esophagus appeared to be within normal limits. The scope was then advanced with ease into the stomach. Mucosa overlying the antrum and the body revealed some patchy erythema. The previously described ulcer in the gastric body appeared to have basically healed. Pylorus was of normal contour and shape, was intubated with ease and the scope was advanced all the way to the second portion of the duodenum. The scope was then withdrawn slowly. Mucosa overlying the proximal second portion and the duodenal bulb appeared to be within normal limits. The scope was then withdrawn back into the stomach and retroflexed, and mucosa overlying the fundus and the cardia appeared to be within normal limits. The scope was then straightened out, it was subsequently withdrawn, and the patient tolerated the procedure well. IMPRESSION: 1. Cervical esophagus, minute nodule, biopsied. 2. Gastritis, mild. 3. Previously described ulcer, body of stomach appeared to have healed. Findings do not explain the patient's anemia. We will need small bowel series. If negative, then capsule endoscopy would be in order. Pedro Mcfadden MD [facility] /[id number] cc: Devin Sprague MD
[2020-06-05] MEDS: OXYBUTYNIN CHLORIDE XL 5 MG TAB PO SCH (17:59)
[2020-06-05 18:22] LABS: EOSINOPHILS # (AUTO) 0.2 (0.0-0.4); EOSINOPHILS % 5.6 % (0.0-6.0); HEMOGLOBIN 8.3 g/dL (12.0-16.0); LYMPHOCYTES # (AUTO) 0.7 (1.0-3.2); LYMPHOCYTES % 17.4 % (18.0-39.1); MEAN CORPUSCULAR HEMOGLOBIN 28.8 pg (28-32); MEAN CORPUSCULAR HGB CONC 29.6 g/dL (31-35); MEAN CORPUSCULAR VOLUME 97.2 fL (81-99); MONOCYTES # (AUTO) 0.6 (0.2-0.8); MONOCYTES % 13.5 % (4.4-11.3); NEUTROPHILS # (AUTO) 2.5 (2.1-6.9); NEUTROPHILS % 62.3 % (38.7-80.0); PLATELET COUNT 142 x10e3/uL (140-360); RED BLOOD COUNT 2.88 x10e6/uL (3.6-5.1); RED CELL DISTRIBUTION WIDTH 17.3 % (11.7-14.4)
--- NOTE | 2020-06-05 19:15 | NUR ---
Completed bedside shift report with morning nurse. Pt alert and oriented to name, lying in bed HOB 45 degrees. Denies pain at this time. Call nelson within reach. Bed low and locked. Reminded to call for assistance before getting OOB, Pt verbalized understanding. Pt's goal for this shift is for daughter to be aware of plan of care.
--- NOTE | 2020-06-05 19:39 | NUR ---
COMPLETED BEDSIDE REPORT AND ROUNDING WITH THE NIGHT NURSE. PATIENT IN STABLE CONDITION, NO S/S OF DISTRESS NOTED. NO PAIN VOICED. TELEMETRY APPLIED. KINNEY APPLIED AND PATENT. IV FLUIDS INFUSING, SITE ASYMPTOMATIC AND PATENT, TRANSPARENT DRESSING C/D/I. BED ALARM APPLIED. BED IN LOWEST POSITION AND LOCKED, SIDE RAILS X 2, NON SKID SOCKS APPLIED. CALL LIGHT WITHIN REACH.
[2020-06-05] MEDS ORDERED: LIDOCAINE HCL 2% LOCAL INJ 5 ML SDV VIAL INJ ONE (19:44)
[2020-06-05] MEDS ORDERED: GLUCAGON FOR INJ 1 MG VIAL ONE (19:44)
[2020-06-05] MEDS ORDERED: PROPOFOL IV EMULSION 10 MG/ML 20 ML VIAL ONE (19:44)
[2020-06-05] MEDS ORDERED: FENTANYL CITRATE/PF 100MCG/2 ML INJ ONE (21:41)
[2020-06-06] VITALS (7 sets, daily range): BP systolic 100–115; BP diastolic 45–57
--- NOTE | 2020-06-06 00:17 | NUR ---
Attempted to contact daughterCynthia as per patient and daughter's request after speaking with GI doctor there was no answer and phone was not accepting voicemail.
--- NOTE | 2020-06-06 00:36 | NUR ---
DATE OF SERVICE: 06/05/2020 ATTENDING PHYSICIAN: Dr. Devin Sprague CONSULTING PHYSICIAN: Dr. Pedro Mcfadden. SUBJECTIVE: Per RN, patient c/o bladder spasms this morning. Denies any fever or chills, pain with urination improved since Oxybutynin started. She feels "un balanced," has been working with PT, ambulates small distances (mild dizziness while walking). There is a rolling walker and BSC present. Her last bowel movement was on or about 05/31/2020, but then again she has had poor appetite prior to arrival here. Denies any nausea, vomiting. OBJECTIVE: Telemetry: ventricularly paced, HR 60's. VITAL SIGNS: Temperature 97.6. She has been afebrile. Pulse 62, 117/49, respirations 20, and SpO2 98%. At 11:48 BP was low; 83/40. GENERAL: Supine, in no acute distress. LUNGS: Clear to auscultation. Respiratory pattern even and unlabored. No supplemental oxygen. HEENT: EOMI. NECK: Supple. CARDIOVASCULAR: Regular rate and rhythm. No murmur. ABDOMEN: Bowel sounds positive. Soft, nontender, obese. Lovelace catheter with melecio urine. EXTREMITIES: No pitting edema. No clubbing, cyanosis, or signs of DVT. NEUROLOGIC: GCS 15. Nonfocal. DIAGNOSTIC STUDIES: ~LABORATORY DATA: WBCs 3.54, hemoglobin 8.1, hematocrit 26.8, platelets 136. BUN 29, creatinine 1.28 (1.38), estimated GFR 41 (37). Total bilirubin 1.9 (2.1), AST 73, ALT 23, alkaline phosphatase 109. 06/05 Celiac Disease Panel pending. 06/04 Ammonia level 121. On 06/02, COVID was negative. Today FSBG levels 123, 121, 191 (06/04 137, 104, 91, 87). 06/02 (FINAL RESULT) Urinalysis with culture and sensitivity: NO GROWTH 36-48 HRS. ~06/03 Echo: EF 60% to 65%. ~06/04 GI Bleed Scan: Negative. ~06/05 EGD for re-evaluation of the gastric ulcer (first noted in April): IMPRESSION, per Dr. Miranda Mcfadden: 1. Cervical esophagus, minute nodule, biopsied. 2. Gastritis, mild. 3. Previously described ulcer, body of stomach appeared to have healed. Findings do not explain the patient's anemia. We will need small bowel series. If negative, then capsule endoscopy would be in order. ASSESSMENT AND PLAN: 1. Acute Blood Loss Anemia, likely GI Bleed with Iron Deficiency, positive for Gastric Ulcer in April 2020: Continue to monitor H/H, hemoglobin 8.1 then 8.3 today. The patient has had 2 units of blood and 1 unit FFP since admission. Venofer as ordered. We will await remaining GI workup. No obvious bleeding. 2. Controlled HTN with CKD 3: Hypotensive at 83/40 this morning. Currently on HCTZ 12.5mg daily, Lasix 20mg BID, Metoprolol Succinate 25mg daily, Isosorbide M ononitrate 30mg daily, prn IV Hydralazine. Monitor closely; may need medication adjustment. 3. Controlled T2DM with CKD 3: FSBG stable. Continue SSI. Change ADA Diet to 1800 angelito Renal ADA Diet. 4. Atrial fibrillation with heart rate controlled: Anticoagulation held. 5. CKD 3: BUN 29, creatinine 1.28 (1.38), estimated GFR 41 (37). Continue to monitor. 6. Hypothyroidism. Continue Levothyroxine 88 mcg daily. 7. Bladder Spasms, Possible UTI, Lovelace Catheter in situ: Oxybutynin started 06/05. UA C/S ordered 06/04; awaiting collection, reordered. She is afebrile. WBCs < 5.0. 8. Permanent pacemaker in situ. Prophylaxis. Protonix, Octreotide. Discharge Planning: Per PT note, Home Health with PT recommended. Current DC plan is home with Daughter. Billing code [id number]. Time spent 35 minutes.
[2020-06-06 01:41] LABS: BILIRUBIN,URINE NEGATIVE (NEGATIVE); CLARITY,URINE CLEAR (CLEAR); COLOR,URINE YELLOW (YELLOW); KETONES,URINE NEGATIVE (NEGATIVE); LEUKOCYTE ESTERASE ,URINE MODERATE (NEGATIVE); NITRITE,URINE NEGATIVE (NEGATIVE); PROTEIN,URINE DIPSTICK NEGATIVE (NEGATIVE)
[2020-06-06 01:48] LABS: BACTERIA,URINE MODERATE /HPF; EPITHELIAL CELLS,URINE MODERATE /LPF; WBC,URINE (MAN) 21-50 /HPF (0-5)
[2020-06-06] MEDS: LEVOTHYROXINE SODIUM 88 MCG TAB PO SCH (06:00)
[2020-06-06 06:14] LABS: BASOPHILS # (AUTO) 0.1 (0.0-0.1); EOSINOPHILS # (AUTO) 0.3 (0.0-0.4); EOSINOPHILS % 5.8 % (0.0-6.0); HEMOGLOBIN 8.4 g/dL (12.0-16.0); LYMPHOCYTES % 21.2 % (18.0-39.1); MEAN CORPUSCULAR HEMOGLOBIN 28.8 pg (28-32); MEAN CORPUSCULAR VOLUME 95.9 fL (81-99); MONOCYTES # (AUTO) 0.7 (0.2-0.8); MONOCYTES % 13.6 % (4.4-11.3); NEUTROPHILS # (AUTO) 2.8 (2.1-6.9); NEUTROPHILS % 57.6 % (38.7-80.0); PLATELET COUNT 143 x10e3/uL (140-360); RED BLOOD COUNT 2.92 x10e6/uL (3.6-5.1); RED CELL DISTRIBUTION WIDTH 17.2 % (11.7-14.4)
[2020-06-06] MEDS: OCTREOTIDE ACETATE 500 MCG in SODIUM CHLORIDE 0.9% 250ML 250 ML IV SCH ×2 (06:34→16:00)
[2020-06-06 06:46] LABS: ALBUMIN 2.7 g/dL (3.5-5.0); ALBUMIN/GLOBULIN RATIO 0.8 (0.8-2.0); ANION GAP 12.9 mmol/L (8-16); CALCIUM 8.3 mg/dL (8.4-10.2); CREATININE, SERUM 1.24 mg/dL (0.57-1.11); MAGNESIUM 1.8 MG/DL (1.3-2.1); PHOSPHORUS 2.8 MG/DL (2.3-4.7); POTASSIUM 3.9 mmol/L (3.5-5.1)
[2020-06-06] MEDS: INSULIN LISPRO 100 UNIT/1 ML 3ML VIAL SQ SCH ×4 (07:30→21:00)
[2020-06-06] MEDS: FENOFIBRATE 160 MG TAB PO SCH (09:00)
[2020-06-06] MEDS: ISOSORBIDE MONONITRATE 30 MG TAB CR PO SCH (09:00)
--- NOTE | 2020-06-06 09:20 | NUR ---
BEDSIDE SHIFT REPORT RECEIVED FROM THE DAY SHIFT HISTORIOGRAPHER. EDUCATED PT ABOUT FALL PRECAUTIONS. PT VERBALIZED UNDERSTANDING. CALL LIGHT WITH IN EASY REACH. BED IS LOW AND LOCKED. SIDE RAILS X2. BED ALARM IS ON. ALL SAFETY MEASURES IN PLACE. PT DENIES NEEDS AT THIS TIME.
--- NOTE | 2020-06-06 09:38 | NUR ---
PT OFF UNIT TO RADIOLOGY IN SAFE CONDITION.
--- NOTE | 2020-06-06 11:15 | NUR ---
PAGED LAB REGARDING URINE CULTURE.
[2020-06-06] MEDS: TRAMADOL HCL 50 MG TAB PO PRN (13:16)
--- NOTE | 2020-06-06 14:40 | NUR ---
PT IS BACK TO THE UNIT FROM RADIOLOGY. PT IS AAOX3. PT DENIES NEEDS AT THIS TIME.
[2020-06-06] MEDS: FUROSEMIDE 20 MG TAB PO SCH (15:00)
[2020-06-06] MEDS: IRON SUCROSE 100 MG in SODIUM CHLORIDE 0.9% 100 ML 100 ML IV SCH (15:00)
[2020-06-06] MEDS: HYDROCHLOROTHIAZIDE 25 MG TAB PO SCH (15:00)
[2020-06-06] MEDS: PANTOPRAZOLE 40 MG 10ML VIAL IV SCH ×2 (15:00→21:00)
[2020-06-06] MEDS: METOPROLOL SUCCINATE 25 MG TAB XL PO SCH (15:01)
--- NOTE | 2020-06-06 16:26 | Diagnostic Imaging Report ---
SMALL BOWEL FOLLOW THROUGH HISTORY: Anemia SANITARIAN AIDE(S): Quinten Beck MD Comparison: None Procedure: Small bowel follow through exam was performed using oral barium. Preliminary image was obtained before administration of contrast and serial overhead images were obtained after administration of oral barium. Fluoroscopy was performed and spot images were obtained. DISCUSSION: PUNCH FINISHER: The bowel gas pattern is non-obstructive. STOMACH: Normally distensible and demonstrates normal contours and mucosal pattern. DUODENUM: Bulb and sweep are normal. Duodenal-jejunal junction is in the normal expected position. Small bowel loops are normal in caliber and distribution. There is no evidence of fistula, mucosal changes, stricture or dilation. The transit time was within normal limits with proximal colon opacification at 2 hours. Normal gastric transit time. Fluoroscopy Time: 1 minute Multiple spot images were obtained. IMPRESSION: The stomach, duodenum, small bowel loops and terminal ileum are unremarkable. Mild thickening of the proximal ascending colon is noted which could relate to peristalsis versus infection. Correlate with most recent colonoscopy. Signed by: Quinten Bcek MD on 06/06/2020 4:22 PM
[2020-06-06] MEDS: OXYBUTYNIN CHLORIDE XL 5 MG TAB PO SCH (17:11)
--- NOTE | 2020-06-06 19:00 | NUR ---
BEDSIDE SHIFT REPORT GIVEN TO THE EXPEDITIONARY FORCE COMBAT SKILLS RN. PT DENIED FURTHER NEEDS.
--- NOTE | 2020-06-06 19:10 | NUR ---
Received shift report from morning nurse. Pt alert and oriented, lying in bed HOB 30 degrees, denies pain at this time. Call light within reach.
--- NOTE | 2020-06-06 22:27 | NUR ---
DATE OF SERVICE: 06/06/2020 ATTENDING PHYSICIAN: Dr. Devin Sprague CONSULTING PHYSICIANS: 1. Dr. Pedro Mcfadden with Gastroenterology 2. Dr. Fish Moore with Urology SUBJECTIVE: Weak. Reports "bladder pain" was 8/10 today. Denies any fever or chills, pain with urination improved since Oxybutynin started. She feels "unbalanced," has been working with PT but did not work with them today, ambulat es small distances (mild dizziness while walking). There is a rolling walker and BSC present. This morning she had prune juice & subsequently a large BM. Reports recent poor appetite prior to arrival here; she ate a small amount for breakfast. Denies any nausea, vomiting. OBJECTIVE: Telemetry: ventricularly paced, HR 59. VITAL SIGNS: Temperature 98.0. She has been afebrile. Pulse 64, 101/45, respirations 20, and SpO2 100%. GENERAL: Supine, in no acute distress. LUNGS: Clear to auscultation. Respiratory pattern even and unlabored. No supplemental oxygen. HEENT: EOMI. NECK: Supple. CARDIOVASCULAR: Regular rate and rhythm. No murmur. ABDOMEN: Bowel sounds positive. Soft, nontender, obese. Lovelace catheter with melecio urine. EXTREMITIES: No pitting edema. No clubbing, cyanosis, or signs of DVT. NEUROLOGIC: GCS 15. Nonfocal. DIAGNOSTIC STUDIES: LABORATORY DATA: WBCs 4.85 (3.54), hemoglobin 8.4, hematocrit 28, platelets 143. BUN 23 (29), creatinine 1.24 (1.28, 1.38), estimated GFR 42 (41, 37). Total bilirubin 1.2 (1.9, 2.1), AST 54, ALT 21, alkaline phosphatase 113. 06/06 UA: Urinobilinogen 4.0, Neg nitrite, moderate leukocyte esterase, RBC 6-10, WBC 21-50, moderate bacteria. 06/06 Immunology pending. 06/05 Celiac Disease Panel pending. 06/04 Ammonia level 121. On 06/02, COVID was negative. Today FSBG levels 123, 121, 191 (06/04 137, 104, 91, 87). 06/02 (FINAL RESULT) Urinalysis with culture and sensitivity: NO GROWTH 36-48 HRS. IMAGING/OTHER: ~06/03 Echo: EF 60% to 65%. ~06/04 GI Bleed Scan: Negative. ~06/05 EGD for re-evaluation of the gastric ulcer (first noted in April): IMPRESSION, per Dr. Miranda Mcfadden: 1. Cervical esophagus, minute nodule, biopsied. 2. Gastritis, mild. 3. Previously described ulcer, body of stomach appeared to have healed. Findings do not explain the patient's anemia. We will need small bowel series. If negative, then capsule endoscopy would be in order. ~06/06 Small Bowel Series: The stomach, duodenum, small bowel loops and terminal ileum are unremarkable. Mild thickening of the proximal ascending colon is noted which could relate to peristalsis versus infection. Correlate with most recent colonoscopy. ASSESSMENT AND PLAN: 1. Acute Blood Loss Anemia, likely GI Bleed with Iron Deficiency, positive for Gastric Ulcer in April 2020: Continue to monitor H/H, hemoglobin 8.4 today. The patient has had 2 units of blood and 1 unit FFP since admission. Venofer as ordered. We will await remaining GI workup. No obvious bleeding. 2. Hypotension; Controlled HTN with CKD 3: Hypotensive at 83/40 morning of 06/05. Currently on HCTZ 12.5mg daily, Metoprolol Succinate 25mg daily, Isosorbide Mononitrate 30mg daily, prn IV Hydralazine. Lasix 20mg BID discontinued today. Monitor closely. 3. Urinary Retention, Bladder Spasms, Possible UTI, Lovelace Catheter in situ: Oxybutynin started 06/05. UA C/S recollected today; awaiting final results of C/S. She is afebrile with positive S/S of UTI. WBCs have been < 5.0. Urology consulted. 4. Controlled T2DM with CKD 3: FSBG stable. Continue SSI. Continue 1800 angelito Renal ADA Diet. 5. Atrial fibrillation with heart rate controlled: Anticoagulation held. 6. CKD 3: BUN 23 (29), creatinine 1.24 (1.28, 1.38), estimated GFR 42 (41, 37). Continue to monitor. 7. Hypothyroidism. Continue Levothyroxine 88 mcg daily. 8. Permanent pacemaker in situ. 9. Debility: PT eval/treat. Per PT note dated 06/05, "Progressing with increased distance ambualted, 30 ft and 45 ft with one seated rest period. Pt CGA during gait as she is slightly unsteady, but no major LOB. pt will need SBA with gait for increased safety at this time." PT recommends home with home health. Prophylaxis. Protonix, Octreotide. Discharge Planning: Per PT note, Home Health with PT recommended. Current DC plan is home with Daughter & home health. Billing code [id number]. Time spent 35 minutes.
[2020-06-07] VITALS (7 sets, daily range): BP systolic 96–125; BP diastolic 46–77
[2020-06-07] MEDS: OCTREOTIDE ACETATE 500 MCG in SODIUM CHLORIDE 0.9% 250ML 250 ML IV SCH ×3 (02:45→15:01)
[2020-06-07] MEDS: LEVOTHYROXINE SODIUM 88 MCG TAB PO SCH (06:00)
[2020-06-07 06:53] LABS: EOSINOPHILS # (AUTO) 0.3 (0.0-0.4); EOSINOPHILS % 6.8 % (0.0-6.0); HEMATOCRIT 28.4 % (34.2-44.1); HEMOGLOBIN 8.7 g/dL (12.0-16.0); LYMPHOCYTES # (AUTO) 0.9 (1.0-3.2); LYMPHOCYTES % 22.6 % (18.0-39.1); MEAN CORPUSCULAR HEMOGLOBIN 30.3 pg (28-32); MEAN CORPUSCULAR HGB CONC 30.6 g/dL (31-35); MONOCYTES # (AUTO) 0.5 (0.2-0.8); MONOCYTES % 12.3 % (4.4-11.3); NEUTROPHILS # (AUTO) 2.3 (2.1-6.9); NEUTROPHILS % 56.8 % (38.7-80.0); PLATELET COUNT 122 x10e3/uL (140-360); RED BLOOD COUNT 2.87 x10e6/uL (3.6-5.1); RED CELL DISTRIBUTION WIDTH 17.9 % (11.7-14.4)
--- NOTE | 2020-06-07 07:00 | NUR ---
BEDSIDE SHIFT REPORT RECEIVED FROM THE WEBSPHERE CONSULTANT RN. EDUCATED PT ABOUT FALL PRECAUTIONS. PT VERBALIZED UNDERSTANDING. CALL LIGHT WITH IN EASY REACH. BED IS LOW AND LOCKED. SIDE RAILS X2. BED ALARM IS ON. ALL SAFETY MEASURES IN PLACE. PT DENIES NEEDS AT THIS TIME.
[2020-06-07 07:22] LABS: ANION GAP 11.9 mmol/L (8-16); CALCIUM 8.3 mg/dL (8.4-10.2); CREATININE, SERUM 1.29 mg/dL (0.57-1.11); MAGNESIUM 1.6 MG/DL (1.3-2.1); PHOSPHORUS 2.7 MG/DL (2.3-4.7); POTASSIUM 3.9 mmol/L (3.5-5.1)
[2020-06-07] MEDS: INSULIN LISPRO 100 UNIT/1 ML 3ML VIAL SQ SCH ×4 (08:30→22:04)
[2020-06-07] MEDS: FENOFIBRATE 160 MG TAB PO SCH (09:00)
[2020-06-07] MEDS: HYDROCHLOROTHIAZIDE 25 MG TAB PO SCH (09:37)
[2020-06-07] MEDS: IRON SUCROSE 100 MG in SODIUM CHLORIDE 0.9% 100 ML 100 ML IV SCH (09:37)
[2020-06-07] MEDS: PANTOPRAZOLE 40 MG 10ML VIAL IV SCH ×2 (09:37→22:03)
[2020-06-07] MEDS: ISOSORBIDE MONONITRATE 30 MG TAB CR PO SCH (09:38)
[2020-06-07] MEDS: METOPROLOL SUCCINATE 25 MG TAB XL PO SCH (09:38)
[2020-06-07] MEDS: TRAMADOL HCL 50 MG TAB PO PRN (10:00)
--- NOTE | 2020-06-07 11:55 | NUR ---
CALL RECEIVED FROM DR. YENNIFER CM OFFICE STATING IS OUT OF TOWN. PAGELouise MARIN NATURAL GAS ENGINEER AND INFORMED THE SAME. NEW CONSULT FOR DR. GODFREY RECEIVED.
--- NOTE | 2020-06-07 15:10 | NUR ---
DR. GODFREY IS OUT OF TOWN PER DR. RINCON AND CHANGED CONSULT TO DR. RINCON PER THE
--- NOTE | 2020-06-07 15:12 | NUR ---
ORDER RECEIVED FOR HOME HEALTH FOR PT/OT. CALL TO THE PT'S ROOM. REQUESTED CM CALL HER DTR. CALL TO PT'S DTR, GREGORIO MCKEE @ [phone]. DISCUSSED HH ORDER. STATES HER MOTHER IS ALREADY ON SERVICE W [facility] @ OFF: [phone] / FAX: [phone]. IMM LETTER EXPLAINED TO PT.'S DTR. DTR VERBALIZED UNDERSTANDING. IMM LETTER SIGNED. COPY TO PT AND COPY TO CHART.
[2020-06-07] MEDS: OXYBUTYNIN CHLORIDE XL 5 MG TAB PO SCH (17:03)
--- NOTE | 2020-06-07 19:12 | NUR ---
BEDSIDE SHIFT REPORT GIVEN TO THE INTEL RECRUITER RN. PT DENIED FURTHER NEEDS.
--- NOTE | 2020-06-07 22:01 | Consultation ---
DATE OF CONSULTATION: 06/07/2020 Urology Consultation REASON FOR CONSULTATION: Lovelace catheter discomfort. HISTORY OF PRESENT ILLNESS: Gris Lozano is a 74-year-old woman, who has been in the hospital here for several days. Yesterday evening, she was complaining about discomfort from the catheter and urological consultation was sought to Dr. Fish Moore. However, he seems to be out of town, and his office told them to call us. The patient is a little confused and cannot provide us with very good history and she does not recall if she has seen Dr. Moore in the past or not. The patient cannot recall whether she has had prior urinary tract infections or hematuria. She denies any urolithiasis. The patient was anemic as well and she received 2 units of blood and one FFP since admission. PAST MEDICAL AND SURGICAL HISTORY: 1. Type 2 diabetes mellitus. 2. Hyperlipidemia. 3. Hypertension. 4. Atrial fibrillation. 5. Hypothyroidism. 6. Uterine cancer. 7. Chronic renal insufficiency. 8. AVMs. 9. Status post pacemaker. 10. Status post cholecystectomy. 11. Status post back surgery. 12. Status post appendectomy. 13. Status post hysterectomy. FAMILY HISTORY: Significant for diabetes mellitus and cerebrovascular accident. SOCIAL HISTORY: The patient denies smoking, ethanol, or drug use. 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 ALLERGIES: STEROIDS. MEDICATIONS: Please refer to the MAR. REVIEW OF SYSTEMS: Discussed as above in history of present illness and past medical history, otherwise negative for all systems. PHYSICAL EXAMINATION: GENERAL: Very pleasant 74-year-old woman, sitting up in a chair, in no apparent distress. VITAL SIGNS: She is currently afebrile. Vital signs currently stable. ABDOMEN: Soft, nondistended, nontender without costovertebral angle tenderness. Kidneys not palpable without hepatosplenomegaly. No obvious evidence of hernia. The patient is obese. GENITOURINARY: Normal female external genitalia with a Lovelace catheter in place, draining clear urine out. For the remaining physical examination systems, please refer the admission history and physical in chart. LABORATORY STUDIES: The patient's does not have any urologically significant imaging at this time. The patient's urine culture is growing enterococcus and is preliminary. Her calcium is low at 8.3. Creatinine is elevated at 1.29. White blood cell count is low at 3980, hemoglobin 8.7, platelets 122,000. The patient's urinalysis significant for microhematuria, pyuria, and bacteriuria. ASSESSMENT: 1. Lovelace catheter in situ. 2. Bladder spasms. 3. Urinary tract infection. 4. Leukopenia. 5. Anemia. 6. Thrombocytopenia. 7. Obesity. 8. Hyponatremia. 9. Chronic renal insufficiency. PLAN: 1. I instructed the nurse to provide the patient Pyridium 200 mg t.i.d. p.r.n. 2. Recommending await urine culture and sensitivity final. 3. Hematological and electrolyte disorders per the primary team. 4. The patient needs ongoing urological followup. Thank you very much for involving us in care of your patient. We will be happy to follow her along with you as well as an outpatient. Jermain Valentine MD [facility] /[id number] cc: Mark Bridges DO
[2020-06-08] VITALS (8 sets, daily range): BP systolic 107–142; BP diastolic 47–69
[2020-06-08] MEDS ORDERED: OCTREOTIDE ACETATE 2 ML ONE (01:31)
[2020-06-08] MEDS ORDERED: SODIUM CHLORIDE 0.9% 250ML 250 ML ONE (01:51)
[2020-06-08] MEDS: OCTREOTIDE ACETATE 500 MCG in SODIUM CHLORIDE 0.9% 250ML 250 ML IV SCH ×3 (02:33→21:15)
[2020-06-08 06:28] LABS: BASOPHILS # (AUTO) 0.1 (0.0-0.1); BASOPHILS % 1.1 % (0.0-1.0); EOSINOPHILS # (AUTO) 0.3 (0.0-0.4); EOSINOPHILS % 6.5 % (0.0-6.0); HEMATOCRIT 32.7 % (34.2-44.1); HEMOGLOBIN 9.6 g/dL (12.0-16.0); LYMPHOCYTES # (AUTO) 0.9 (1.0-3.2); LYMPHOCYTES % 18.7 % (18.0-39.1); MEAN CORPUSCULAR HEMOGLOBIN 29.1 pg (28-32); MEAN CORPUSCULAR HGB CONC 29.4 g/dL (31-35); MEAN CORPUSCULAR VOLUME 99.1 fL (81-99); MONOCYTES # (AUTO) 0.5 (0.2-0.8); MONOCYTES % 11.6 % (4.4-11.3); NEUTROPHILS # (AUTO) 2.9 (2.1-6.9); NEUTROPHILS % 61.2 % (38.7-80.0); PLATELET COUNT 124 x10e3/uL (140-360); RED CELL DISTRIBUTION WIDTH 18.5 % (11.7-14.4)
[2020-06-08] MEDS: LEVOTHYROXINE SODIUM 88 MCG TAB PO SCH (06:34)
[2020-06-08 06:46] LABS: CALCIUM 8.7 mg/dL (8.4-10.2); CREATININE, SERUM 1.06 mg/dL (0.57-1.11)
[2020-06-08 08:12] LABS: ENDOMYSIAL ANTIBODIES, IGA Negative (Negative)
--- NOTE | 2020-06-08 08:30 | NUR ---
The pt was received in stable condition and is sleeping without problems at this time. Dr. Valentine rounded and was asked about discharge and he is waiting for sensitivity on culture.
[2020-06-08] MEDS: ISOSORBIDE MONONITRATE 30 MG TAB CR PO SCH (09:00)
[2020-06-08] MEDS: METOPROLOL SUCCINATE 25 MG TAB XL PO SCH (09:00)
[2020-06-08] MEDS: FENOFIBRATE 160 MG TAB PO SCH (09:00)
[2020-06-08] MEDS: HYDROCHLOROTHIAZIDE 25 MG TAB PO SCH (09:14)
[2020-06-08] MEDS: PANTOPRAZOLE 40 MG 10ML VIAL IV SCH ×2 (09:14→21:31)
[2020-06-08] MEDS: INSULIN LISPRO 100 UNIT/1 ML 3ML VIAL SQ SCH ×4 (09:50→21:41)
[2020-06-08] MEDS: IRON SUCROSE 100 MG in SODIUM CHLORIDE 0.9% 100 ML 100 ML IV SCH (14:18)
--- NOTE | 2020-06-08 16:31 | NUR ---
Nutrition Screen Note RD Recommendation for Physician: -Recommend 1800 ADA diet -If PO intake is <50% of meals, offer Glucerna nutrition supplement Plan of Care: RD following, monitoring for tolerance and adequacy Nutrition reason for involvement: length of stay Primary Diagnose(s): AMS, anemia, coagulopathy, GI bleed, renal insufficiency PMH: Type 2 diabetes mellitus, Hyperlipidemia, Hypertension, Atrial fibrillation, Hypothyroidism, Uterine cancer, Chronic renal insufficiency, AVMs, Status post pacemaker,Status post cholecystectomy, Status post back surgery, Status post appendectomy, Status post hysterectomy. Ht: 65 in Wt:229.31lb BMI: 38.2 kg/m2 IBW:[address] Assessment: (06/08/20) Chart reviewed. Labs and meds reviewed. Pt is a 74 year old female admitted with AMS, anemia, coagulopathy, GI bleed, and renal insufficiency. Pt reports eating about 50% of her meals. 75-100% meal intake is recorded in chart. MD note indicates pt had poor appetite prior to arrival. No weight loss is indicated since pt weighed 228 lbs in March 2020 per weight history. No N/V reported. Pt stated she has missing teeth but does not need any changes in her diet consistency. Will continue to monitor. Current Diet: renal/1800 diabetic diet Malnutrition Evaluation (06/08/20) The patient does not meet criteria for a specified degree of malnutrition at this time. Will re-evaluate at follow-up as appropriate. Diet Education Needs Assessment: RD is available for diet education as needed Nutrition Care Level: low Signed: Glenna Cobb, DINO, LD
[2020-06-08] MEDS: OXYBUTYNIN CHLORIDE XL 5 MG TAB PO SCH (17:33)
--- NOTE | 2020-06-08 19:10 | NUR ---
Received bed side report, introduced self to patient. safety and fall precautions maintained as per Hospital protocols: bed in lowest position and locked, needed items beside bed, call nelson close to patient, patient instructed to use it to call nurses for any assisstance needed, patient verbalized understanding. patient is currently stable will continue to monitor.Received bed side report, introduced self to patient. safety and fall precautions maintained as per hosptal protocols: bed in lowest position and locked, needed items beside bed, call nelson close to patient, patient instructed to use it to call nurses for any assisstance needed, patient verbalized understanding. patient is currently stable will continue to monitor.
[2020-06-08] MEDS: TRAMADOL HCL 50 MG TAB PO PRN (22:26)
[2020-06-09] VITALS (8 sets, daily range): BP systolic 110–140; BP diastolic 42–68
[2020-06-09] MEDS: TRAMADOL HCL 50 MG TAB PO PRN (03:06)
--- NOTE | 2020-06-09 06:55 | NUR ---
patient endorsed to next shift for continuity of care.
[2020-06-09] MEDS: LEVOTHYROXINE SODIUM 88 MCG TAB PO SCH (06:58)
[2020-06-09] MEDS: INSULIN LISPRO 100 UNIT/1 ML 3ML VIAL SQ SCH ×4 (07:30→21:49)
[2020-06-09] MEDS: METOPROLOL SUCCINATE 25 MG TAB XL PO SCH (08:35)
[2020-06-09] MEDS: ISOSORBIDE MONONITRATE 30 MG TAB CR PO SCH (08:35)
[2020-06-09] MEDS: HYDROCHLOROTHIAZIDE 25 MG TAB PO SCH (08:35)
[2020-06-09] MEDS: FENOFIBRATE 160 MG TAB PO SCH (08:35)
[2020-06-09] MEDS: PANTOPRAZOLE 40 MG 10ML VIAL IV SCH (08:40)
[2020-06-09] MEDS: IRON SUCROSE 100 MG in SODIUM CHLORIDE 0.9% 100 ML 100 ML IV SCH (11:00)
[2020-06-09] MEDS ORDERED: TRAMADOL HCL 50 MG TAB PO PRN (13:00)
[2020-06-09] MEDS ORDERED: LEVOFLOXACIN 500 MG TAB PO SCH (14:30)
[2020-06-09] MEDS: APIXAB 2.5 MG TABLET PO SCH (16:00)
[2020-06-09] MEDS: OCTREOTIDE ACETATE 500 MCG in SODIUM CHLORIDE 0.9% 250ML 250 ML IV SCH ×2 (17:15→19:46)
[2020-06-09] MEDS: OXYBUTYNIN CHLORIDE XL 5 MG TAB PO SCH (17:18)
[2020-06-09] MEDS: PANTOPRAZOLE SOD 40 MG TABEC PO SCH (17:18)
--- NOTE | 2020-06-09 19:20 | NUR ---
Report given to oncoming nurse of patient's status. Resting in bed. No s/s of acute distress noted. Side rails upx2, call light within reach.
[2020-06-10] VITALS: BP 111/55
[2020-06-10] MEDS ORDERED: SODIUM CHLORIDE 0.9% 250ML 250 ML ONE (00:24)
[2020-06-10] MEDS: APIXAB 2.5 MG TABLET PO SCH (02:42)
[2020-06-10] MEDS: OCTREOTIDE ACETATE 500 MCG in SODIUM CHLORIDE 0.9% 250ML 250 ML IV SCH (03:15)
[2020-06-10] MEDS ORDERED: FERROUS SULFATE 325 MG TAB PO SCH (06:00)
[2020-06-10 06:03] VITALS: BP 120/62
[2020-06-10] MEDS: LEVOTHYROXINE SODIUM 88 MCG TAB PO SCH (06:19)
--- NOTE | 2020-06-10 06:55 | NUR ---
Patient endorsed to next shift fo continuity of care.
[2020-06-10 07:00] LABS: BASOPHILS # (AUTO) 0.1 (0.0-0.1); BASOPHILS % 0.9 % (0.0-1.0); EOSINOPHILS # (AUTO) 0.3 (0.0-0.4); EOSINOPHILS % 5.6 % (0.0-6.0); HEMATOCRIT 30.3 % (34.2-44.1); HEMOGLOBIN 9.3 g/dL (12.0-16.0); LYMPHOCYTES # (AUTO) 1.2 (1.0-3.2); LYMPHOCYTES % 22.9 % (18.0-39.1); MEAN CORPUSCULAR HEMOGLOBIN 31.6 pg (28-32); MEAN CORPUSCULAR HGB CONC 30.7 g/dL (31-35); MEAN CORPUSCULAR VOLUME 103.1 fL (81-99); MONOCYTES # (AUTO) 0.7 (0.2-0.8); PLATELET COUNT 111 x10e3/uL (140-360); RED BLOOD COUNT 2.94 x10e6/uL (3.6-5.1); RED CELL DISTRIBUTION WIDTH 20.4 % (11.7-14.4)
[2020-06-10 07:45] LABS: ALBUMIN 2.6 g/dL (3.5-5.0); ALBUMIN/GLOBULIN RATIO 0.9 (0.8-2.0); ANION GAP 11.8 mmol/L (8-16); CALCIUM 8.3 mg/dL (8.4-10.2); CREATININE, SERUM 0.95 mg/dL (0.57-1.11); POTASSIUM 3.8 mmol/L (3.5-5.1)
[2020-06-10 08:00] VITALS: BP 120/62
[2020-06-10 08:15] VITALS: BP 113/54
[2020-06-10] MEDS: FENOFIBRATE 160 MG TAB PO SCH (09:00)
[2020-06-10] MEDS ORDERED: ASCORBIC ACID 500 MG TAB PO SCH (09:00)
[2020-06-10] MEDS ORDERED: METFORMIN HCL 500 MG TAB PO SCH (09:00)
[2020-06-10] MEDS: PANTOPRAZOLE SOD 40 MG TABEC PO SCH (09:26)
[2020-06-10] MEDS: INSULIN LISPRO 100 UNIT/1 ML 3ML VIAL SQ SCH ×2 (09:27→12:51)
[2020-06-10] MEDS: HYDROCHLOROTHIAZIDE 25 MG TAB PO SCH (09:27)
[2020-06-10] MEDS: METOPROLOL SUCCINATE 25 MG TAB XL PO SCH (09:28)
[2020-06-10] MEDS: ISOSORBIDE MONONITRATE 30 MG TAB CR PO SCH (09:28)
[2020-06-10 12:05] VITALS: BP 107/48
[2020-06-10] MEDS ORDERED: ULTRAM 50MG50 MG PO (13:25)
[2020-06-10] MEDS ORDERED: ACETAMINOPHEN325 M1 PO (13:25)
[2020-06-10] MEDS ORDERED: LEVAQUIN500 MG PO (13:25)
[2020-06-10] MEDS ORDERED: DITROPAN XL5 MG PO (13:25)
[2020-06-10] MEDS ORDERED: PENCILLIN V PO250 MG PO (13:54)
[2020-06-10 15:51] VITALS: BP 98/47
--- NOTE | 2020-06-10 16:35 | NUR ---
Pt discharged home at this time. 0 s/s of acute distress noted at time of discharge. Education was provided to patient and daughter related to tyson catheter and verbalized understanding of tyson catheter management. Pt was discharged with prescriptions and verbalized understanding of new medications. 0 s/s of acute distress noted.
--- NOTE | 2020-06-11 01:02 | Discharge Summary ---
PRIMARY CARE PHYSICIAN: Mark Bridges DO CONSULTING PHYSICIANS: 1. Dr. Pedro Mcfadden with Gastroenterology. 2. Dr. Jermain Valentine with Urology. CHIEF COMPLAINT: Pale, weak, confused. HISTORY OF PRESENT ILLNESS: The patient is a 74-year-old female, who admitted with complaints of weakness, fatigue, and black/dark stools for 2 to 3 days prior to arrival. She stated that she woke up on 06/02/2020, and was confused and pale, so her family brought her to the emergency room. She denied nausea, vomiting, diarrhea, or fever on admission. PAST MEDICAL HISTORY: Type 2 diabetes mellitus, hyperlipidemia, hypertension, atrial fibrillation, hypothyroidism on off medications, uterine cancer, CKD 3, AV malformations. PAST SURGICAL HISTORY: Cholecystectomy, pacemaker, back surgery, appendectomy, hysterectomy. FAMILY HISTORY: Mother and father had diabetes mellitus. Father had CVA. SOCIAL HISTORY: Noncontributory. ALLERGIES: STEROIDS. ADMITTING DIAGNOSES: 1. Acute blood loss anemia, likely gastrointestinal bleed. 2. Chronic kidney disease 3. 3. Type 2 diabetes mellitus with chronic kidney disease, stage 3. 4. Hypertension with chronic kidney disease 3. 5. Atrial fibrillation. DISCHARGE DIAGNOSES: 1. Expcl-gw-tfoavoa blood loss, iron deficiency anemia. 2. Acute urinary tract infection with Enterococcus, POA. 3. Controlled hypertension with chronic kidney disease 3. 4. Controlled type 2 diabetes mellitus with chronic kidney disease 3. 5. Atrial fibrillation with heart rate controlled. 6. Debility. 7. Acute enterococcus urinary tract infection. LABORATORY DATA: On admission; WBCs 4.27 instead, hemoglobin 6.3, hematocrit 21.3, and platelets 164. Sodium 147, chloride 117, CO2 of 21, anion gap 12.9, BUN 40, creatinine 1.27, estimated GFR 41, magnesium 2.1, AST 36, ALT 15, and alkaline phosphatase 129. Troponin I less than 0.001. B-type natriuretic peptide 199.5. Total protein 6.1, albumin 2.8. Lactic acid 1.4. Initial urinalysis was negative. Followup urinalysis was done due to complaints of dysuria on 06/06/2020, which showed moderate amount of blood, negative nitrite, moderate amount of leukocyte esterase, 4.0 urobilinogen, rbc's 6 to 10, wbc's 21 to 50, bacteria moderate, moderate urine epithelial cells. On 06/05/2020, IgA 559, endomysial IgA antibody negative. Tissue transglutamine IgA less than 2. Coronavirus PCR on 06/02/2020, was negative. Initial urine culture showed no growth. Blood cultures x2 showed no growth after 5 days. The final urine culture collected on 06/06/2020, showed pansensitive Enterococcus urinary tract infection. During her stay, the patient received 2 units of blood; this was given on one unit on June 02 and one unit on June 03, one unit of FFP was given on June 03. Due to the confusion, a CT of the head was done on 06/02/2020, which was negative, no acute intracranial abnormality, stable [id number] chronic microvascular ischemic changes compared to the head CT of 04/20/2020. Chest x-ray done on 06/02/2020, showed cardiomegaly with pulmonary vessel congestion. No focal consolidation or pleural effusion or pneumothorax. GI bleed study in nuclear medicine was done on 06/04/2020, which showed no evidence of acute gastrointestinal bleeding. Small bowel x-ray done 06/06/2020, was negative. The stomach, duodenum, small bowel loops, and terminal ileum were unremarkable. Mild thickening of the proximal ascending colon noted, which could relate to peristalsis versus infection. The patient was experiencing "bladder pain" on 06/06/2020, which was rated 05/27/2020 on a 0 to 10 pain scale. Oxybutynin was started due to also having bladder spasms and a Lovelace catheter was inserted for urinary retention. Initially, Dr. Fish Moore with Urology was consulted, but he was out of town. Thus, Dr. Reinoso with Urology was called, but he said to call Dr. Jermain Valentine. Thus Dr. Jermain Valentine followed the patient. Her ammonia level on 06/04/2020, was 121 within normal limits. Ejection fraction on 06/03/2020, per echocardiogram was 60% to 65%. EGD was done on 06/05/2020, for re-evaluation of the gastric ulcer, which showed cervical esophagus minute nodule, biopsied; mild gastritis. Previous described ulcer, body of stomach appeared to have healed. Gastroenterology recommends capsule endoscopy, which can be done on an outpatient basis. The patient was hypotensive on 06/05/2020, her blood pressure 83/40, this has improved. Her vital signs this morning, temperature 98.4, pulse 70, blood pressure 113/54, respirations 17, and oxygen saturation 98%. The patient ambulated with physical therapy and has been doing well. Physical therapy recommends home health, which Case Management is to arrange. Disposition is to be home with her daughter. She is to continue on a diabetic diet. Activity level as tolerated. Follow up with her PCP, Dr. Bridges in 1 to [address] Mcfadden's office to set up an appointment. Follow up with Dr. Jermain Valentine in his office for urodynamic study. Home with Lovelace to leg bag for day time and bedside bag for nighttime. The patient can shower with Lovelace. Case was discussed with Dr. Sprague, Dr. Mcfadden, Dr. Jermain Valentine; Connie, the patient's nurse; as well as the patient this morning. The patient has no questions at this point. We will send the patient home with the following prescriptions, Tylenol p.r.n., Levaquin 500 mg p.o. daily for 7 days for Enterococcus UTI, Ditropan 10 mg daily, Ultram p.r.n. for pain. about sending the patient home on Levaquin since her culture is pansensitive and sensitive to penicillin. Consider home on oral penicillin. Dictated by Nikunj Andres NP Devin Sprague MD [facility]/MODL /[id number]
== END 2020-06-10 16:35 | disposition home or self-care (01) | DRG 377 ==
LOC: ER 15:00 → ERHOLD 16:07 → MED/SURG3 17:34
PROVIDERS: ADMIT Internal Medicine; ATTEND Internal Medicine
PROC: 0DB58ZX Excision of Esophagus, Via Natural or Artificial Opening Endoscopic, Diagnostic (ICD-10-PCS; principal; 2020-06-02)
PROC: 30233N1 Transfusion of Nonautologous Red Blood Cells into Peripheral Vein, Percutaneous Approach (ICD-10-PCS; 2020-06-02)
PROC: 30233K1 Transfusion of Nonautologous Frozen Plasma into Peripheral Vein, Percutaneous Approach (ICD-10-PCS; 2020-06-03)
DX: K92.2 Gastrointestinal hemorrhage, unspecified (principal); G92 Toxic encephalopathy; D68.9 Coagulation defect, unspecified; N39.0 Urinary tract infection, site not specified; D62 Acute posthemorrhagic anemia; I48.19 Other persistent atrial fibrillation; E11.22 Type 2 diabetes mellitus with diabetic chronic kidney disease; I12.9 Hypertensive chronic kidney disease with stage 1 through stage 4 chronic kidney disease, or unspecified chronic kidney disease; N18.3 Chronic kidney disease, stage 3 (moderate); B95.2 Enterococcus as the cause of diseases classified elsewhere; Z79.01 Long term (current) use of anticoagulants; Z11.59 Encounter for screening for other viral diseases; E03.9 Hypothyroidism, unspecified; Z95.0 Presence of cardiac pacemaker; Z08 Encounter for follow-up examination after completed treatment for malignant neoplasm; Z85.42 Personal history of malignant neoplasm of other parts of uterus; E78.5 Hyperlipidemia, unspecified; D50.9 Iron deficiency anemia, unspecified
CPT/HCPCS: 36415; 43239; 51700; 70450; 71045; 74250; 78278; 80048; 80053; 81001; 82140; 82550; 82553; 82607; 82728; 82746; 82784; 82948; 83516; 83540; 83605; 83735; 83880; 84100; 84443; 84466; 84484; 85025; 85045; 85610; 85730; 86256; 86850; 86900; 86920; 87040; 87086; 87186; 88305; 93005; 93306; 96361; 97139; 99285; A9512; J1610; J1644; J1756; J2001; J2353; J2354; J2405; J3010; J3430; J7050; P9016; P9017; U0002

== ENCOUNTER 2020-07-06 15:48 | Inpatient (IN) | payer MEDICARE, OTHER ==
[~2020-07-06] VITALS: Ht 160 cm; Wt 113.4 kg
[~2020-07-06 15:48] MED LIST changes: +ACETAMINOPHEN325 M1 PO; +DITROPAN XL5 MG PO; +HYDROCHLOROTHIA25 MG PO; +LEVAQUIN500 MG PO; +LINZESS PO; +METFORMIN HCL500 MG PO; +PENCILLIN V PO250 MG PO; +ULTRAM 50MG50 MG PO
[2020-07-06] MEDS ORDERED: SODIUM CHLORIDE 0.9% 1000ML 1,000 ML IV STA (16:19)
[2020-07-06 16:34] LABS: BASOPHILS % 0.8 % (0.0-1.0); EOSINOPHILS # (AUTO) 0.1 (0.0-0.4); EOSINOPHILS % 2.2 % (0.0-6.0); HEMATOCRIT 32.2 % (34.2-44.1); HEMOGLOBIN 10.1 g/dL (12.0-16.0); LYMPHOCYTES # (AUTO) 0.9 (1.0-3.2); LYMPHOCYTES % 18.8 % (18.0-39.1); MEAN CORPUSCULAR HEMOGLOBIN 31.2 pg (28-32); MEAN CORPUSCULAR HGB CONC 31.4 g/dL (31-35); MEAN CORPUSCULAR VOLUME 99.4 fL (81-99); MONOCYTES # (AUTO) 0.4 (0.2-0.8); MONOCYTES % 8.5 % (4.4-11.3); NEUTROPHILS # (AUTO) 3.4 (2.1-6.9); NEUTROPHILS % 68.9 % (38.7-80.0); PLATELET COUNT 132 x10e3/uL (140-360); RED BLOOD COUNT 3.24 x10e6/uL (3.6-5.1); RED CELL DISTRIBUTION WIDTH 21.3 % (11.7-14.4)
[2020-07-06 16:41] LABS: INR 1.84; PROTHROMBIN TIME 22.1 seconds (11.9-14.5)
[2020-07-06 16:42] LABS: PARTIAL THROMBOPLASTIN TIME 39.4 seconds (23.8-35.5)
[2020-07-06 16:51] LABS: ALBUMIN 3.5 g/dL (3.5-5.0); ALBUMIN/GLOBULIN RATIO 0.9 (0.8-2.0); ANION GAP 15.4 mmol/L (8-16); CREATININE, SERUM 1.72 mg/dL (0.57-1.11)
[2020-07-06 17:02] LABS: BACTERIA,URINE FEW /HPF; BILIRUBIN,URINE NEGATIVE (NEGATIVE); CLARITY,URINE CLEAR (CLEAR); COLOR,URINE YELLOW (YELLOW); EPITHELIAL CELLS,URINE RARE /LPF; KETONES,URINE NEGATIVE (NEGATIVE); LEUKOCYTE ESTERASE ,URINE NEGATIVE (NEGATIVE); NITRITE,URINE NEGATIVE (NEGATIVE); POTASSIUM 5.4 mmol/L (3.5-5.1); PROTEIN,URINE DIPSTICK NEGATIVE (NEGATIVE); URINE UROBILINOGEN 0.2 mg/dL (0.2 - 1); WBC,URINE (MAN) 0-5 /HPF (0-5)
[2020-07-06 17:03] LABS: AMPHETAMINES SCREEN,URINE NEGATIVE (NEGATIVE); BENZODIAZEPINES SCREEN,URINE NEGATIVE (NEGATIVE); PHENCYCLIDINE SCREEN,URINE NEGATIVE (NEGATIVE)
--- NOTE | 2020-07-06 17:31 | Diagnostic Imaging Report ---
Exam: Head CT without contrast History: Altered mental status Comparison studies: Head CT 06/02/2020 Technique: Axial images were obtained from the skull base to the vertex. Coronal and sagittal images reconstructed from the axial data. Dose modulation, iterative reconstruction, and/or weight based adjustment of the mA/kV was utilized to reduce the radiation dose to as low as reasonably achievable. Radiation dose: Total DLP: 1842.8 mGy*cm. Estimated effective dose: DLP x 0.015 Intravenous contrast: None Findings: Scalp: No abnormalities. Bones: No fractures, blastic or lytic lesions. Brain sulci: Appropriate for age. Ventricles: Normal in size and configuration. No hydrocephalus. Extra-axial spaces: No masses, no fluid collection. Parenchyma: Ill-defined confluent hypodensities in the supratentorial white matter are nonspecific but are most compatible with chronic microvascular ischemic changes. No mass, acute hemorrhage or acute Sellar/suprasellar region: No abnormalities. Craniocervical junction: Patent foramen magnum. No Chiari one malformation. Incidental findings: Bilateral intraocular lens replacements. Calcified atherosclerosis in the carotid siphons and left intradural vertebral artery. IMPRESSION: 1. No acute intracranial abnormalities. 2. No changes from the prior head CT of 05/23/2018 3. Moderate microvascular ischemic changes. Signed by: Dr. Alex Pringle M.D. on 07/06/2020 5:28 PM
--- NOTE | 2020-07-06 17:32 | Emergency Department Note ---
History of Present Illnes History of Present Illness Chief Complaint: General Medicine Complaints History of Present Illness This is a 75 year old female pt was brought in by [facility] for evaluation of altered mental status, as per EMS, family reported that pt has been more confused and weaker, pt is AAOX2. 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 Arrival Mode: [facility] Treatment OSTEOPATHY DOCTOR: IV Animal Geneticist Required: No Onset (how long ago): day(s) (LAST NIGHT) Radiation: Reports non-radiation Severity: moderate Onset quality: gradual Timing of current episode: constant Progression: worsening Chronicity: new Context: Denies recent illness Relieving factors: none Exacerbating factors: none Associated symptoms: Reports denies other symptoms, Reports confusion Treatments prior to arrival: none Past Medical/Family History Physician Review I have reviewed the patient's past medical and family history. Any updates have been documented here. Past Medical History Recent Fever: No Clinical Suspicion of Infectio: No New/Unexplained Change in Ment: Yes Past Medical History: Hypertension, Diabetes, A-Fib, UTI's, GERD Other Medical History: VERTIGO ACUTE RENAL INSUFFICIENCY Uterine Cancer Past Surgical History: Hysterectomy, Pacer/AICD, Cataract Removal Other Surgery: HYST PACER/DEFIB CATARACTS/GLAUCOMA Social History Smoking Cessation: Never Smoker Counseling Performed: No Alcohol Use: None Any Illegal Drug Use: No TB Exposure/Symptoms: No Physically hurt or threatened: No Family History Family history of heart diseas: No Other Last Tetanus: UNK Any Pre-Existing Lines (PICC,: No Review of Systems Review of Systems Constitutional: Reports no symptoms EENTM: Reports no symptoms Cardiovascular: Reports no symptoms Respiratory: Reports no symptoms Gastrointestinal: Reports no symptoms Genitourinary: Reports no symptoms Musculoskeletal: Reports no symptoms Integumentary: Reports no symptoms Neurological: Reports as per HPI Psychological: Reports no symptoms Endocrine: Reports no symptoms Hematological/Lymphatic: Reports no symptoms Physical Exam Related Data Allergies: Uncoded Allergies: STEROIDS (Allergy, Unknown, 11/10/18) Triage Vital Signs Vital Signs Date Time Temp Pulse Resp B/P (MAP) Pulse Ox O2 Delivery O2 Flow Rate FiO2 07/06/20 16:00 86 16 141/71 100 Room Air 07/06/20 16:14 96.6 Vital signs reviewed: Yes Physical Exam CONSTITUTIONAL Constitutional: Present well-developed, Present well-nourished, Present obese HENT HENT: Present normocephalic, Present atraumatic, Present oropharynx clear/moist , Present nose normal HENT L/R: Present left ext ear normal, Present right ext ear normal EYES Eyes: Reports PERRL, Reports conjunctivae normal NECK Neck: Present ROM normal PULMONARY Pulmonary: Present effort normal, Present breath sounds normal CARDIOVASCULAR Cardiovascular: Present irregular rhythm, Present heart sounds normal, Present capillary refill normal, Present normal rate GASTROINTESTINAL Abdominal: Present soft, Present nontender, Present bowel sounds normal GENITOURINARY Genitourinary: Present exam deferred SKIN Skin: Present warm, Present dry MUSCULOSKELETAL Musculoskeletal: Present ROM normal NEUROLOGICAL Neurological: Present alert, Present no gross motor or sensory deficits, Present other (ORIENTED TO NAME ONLY); Absent cranial nerve deficit, Absent sensory deficit, Absent weakness PSYCHOLOGICAL Psychological: Present mood/affect normal, Present judgement normal Results Laboratory Result Diagram: 07/06/20 1620 07/06/20 1620 Laboratory Laboratory Tests Test 07/06/20 16:20 White Blood Count 4.95 x10e3/uL (4.8-10.8) Red Blood Count 3.24 x10e6/uL (3.6-5.1) Hemoglobin 10.1 g/dL (12.0-16.0) Hematocrit 32.2 % (34.2-44.1) Mean Corpuscular Volume 99.4 fL (81-99) Mean Corpuscular Hemoglobin 31.2 pg (28-32) Mean Corpuscular Hemoglobin Concent 31.4 g/dL (31-35) Red Cell Distribution Width 21.3 % (11.7-14.4) Platelet Count 132 x10e3/uL (140-360) Neutrophils (%) (Auto) 68.9 % (38.7-80.0) Lymphocytes (%) (Auto) 18.8 % (18.0-39.1) Monocytes (%) (Auto) 8.5 % (4.4-11.3) Eosinophils (%) (Auto) 2.2 % (0.0-6.0) Basophils (%) (Auto) 0.8 % (0.0-1.0) Neutrophils # (Auto) 3.4 (2.1-6.9) Lymphocytes # (Auto) 0.9 (1.0-3.2) Monocytes # (Auto) 0.4 (0.2-0.8) Eosinophils # (Auto) 0.1 (0.0-0.4) Basophils # (Auto) 0.0 (0.0-0.1) Absolute Immature Granulocyte (auto 0.04 x10e3/uL (0-0.1) Prothrombin Time 22.1 seconds (11.9-14.5) Prothromb Time International Ratio 1.84 Activated Partial Thromboplast Time 39.4 seconds (23.8-35.5) Urine Color Yellow (YELLOW) Urine Clarity Clear (CLEAR) Urine pH 7 (5 - 7) Urine Specific Hardin 1.025 (1.010-1.025) Urine Protein Negative (NEGATIVE) Urine Glucose (UA) Negative (NEGATIVE) Urine Ketones Negative (NEGATIVE) Urine Blood Negative (NEGATIVE) Urine Nitrite Negative (NEGATIVE) Urine Bilirubin Negative (NEGATIVE) Urine Urobilinogen 0.2 mg/dL (0.2 - 1) Urine Leukocyte Esterase Negative (NEGATIVE) Urine RBC None /HPF (0-5) Urine WBC 0-5 /HPF (0-5) Urine Epithelial Cells Rare /LPF (NONE) Urine Bacteria Few /HPF (NONE) Sodium Level 141 mmol/L (136-145) Potassium Level 5.4 mmol/L (3.5-5.1) Chloride Level 115 mmol/L (98-107) Carbon Dioxide Level 16 mmol/L (22-29) Anion Gap 15.4 mmol/L (8-16) Blood Urea Nitrogen 55 mg/dL (7-26) Creatinine 1.72 mg/dL (0.57-1.11) Estimat Glomerular Filtration Rate 29 ML/MIN (60-) BUN/Creatinine Ratio 32 (6-25) Glucose Level 141 mg/dL (74-118) Lactic Acid Level 1.7 mmol/L (0.5-2.0) Calcium Level 9.0 mg/dL (8.4-10.2) Total Bilirubin 1.3 mg/dL (0.2-1.2) Aspartate Amino Transf (AST/SGOT) 59 IU/L (5-34) Alanine Aminotransferase (ALT/SGPT) 23 IU/L (0-55) Alkaline Phosphatase 88 IU/L (40-150) Creatine Kinase 321 IU/L (29-168) Creatine Kinase MB 11.00 ng/mL (0-5.0) Troponin I 0.014 ng/mL (0-0.300) Total Protein 7.2 g/dL (6.5-8.1) Albumin 3.5 g/dL (3.5-5.0) Globulin 3.7 g/dL (2.3-3.5) Albumin/Globulin Ratio 0.9 (0.8-2.0) Urine Opiates Screen Negative (NEGATIVE) Urine Methadone Screen Negative (NEGATIVE) Urine Barbiturates Screen Negative (NEGATIVE) Urine Phencyclidine Screen Negative (NEGATIVE) Urine Amphetamines Screen Negative (NEGATIVE) Urine Methamphetamines Screen Negative (NEGATIVE) Urine Benzodiazepines Screen Negative (NEGATIVE) Urine Cocaine Screen Negative (NEGATIVE) Urine Cannabinoids Screen Negative (NEGATIVE) Lab results reviewed: Yes Imaging Imaging results reviewed: Yes Procedures 12 Lead ECG Interpretation ECG Interpretation : ECG: ECG 1 Animal Geneticist: Interpreted by ED physician Date: Jul 06, 2020 Time: 16:36 Rhythm: atrial fibrillation Ectopy: PVC's Rate: normal (74) Conduction: right bundle branch block T wave inversion: III, aVR, aVF, V4, V5, V6 T waves flattening: II Clinical Impression: abnormal ECG Assessment & Plan Medical Decision Making [facility] AMS - CBC, CHEM, ECG, CARDIACS, UA/CX, BLOOD CX'S, LACTIC ACID, CXR, CT BRAIN (AFIB ON ANTICOAGULANTS), COVID - EVAL FOR UTI, SEPSIS, PNEUMONIA, COVID19, DEHYDRATION/RENAL INSUFF, STEMI/NSTEMI, CEREBRAL BLEED, CVA Reassessment Reassessment ADMIT TO DR PETERSON - MICHAEL NS AT 75CC/HR Assessment & Plan Final Impression: (1) Altered mental status (2) Renal insufficiency (3) Atrial fibrillation, chronic (4) CHF (congestive heart failure) Depart Disposition: ADMITTED Last Vital Signs Date Time Temp Pulse Resp B/P (MAP) Pulse Ox O2 Delivery O2 Flow Rate FiO2 07/06/20 16:14 96.6 90 13 123/71 100 Room Air Home Meds Active Scripts Penicillin V Potassium* (PENCILLIN V POTASSIUM*) 250 Mg Tab, 500 MG PO Q8H for 7 Days, TAB 0 Refills Prov:SNEHA ELAM [employer]ONY ROLL FINISHER 06/10/20 Tramadol Hcl* (ULTRAM 50MG*) 50 Mg Tab, 50 MG PO Q6HR PRN for Mild Pain (1-3) or Fever>100.8 for 14 Days, #20 TAB 0 Refills Prov:SNEHA ELAM [employer] FINISHER 06/10/20 Oxybutynin Chloride (DITROPAN XL) 5 Mg Tab.er.24, 10 MG PO DAILY@1800 for 14 Days, #14 TAB 0 Refills Prov:SNEHA ELAM [employer]LL FINISHER 06/10/20 Acetaminophen (ACETAMINOPHEN) 325 Mg Tablet, 650 MG PO Q6H PRN for Mild Pain (1- 3) or Fever>100.8 for 14 Days, #30 TAB 0 Refills Prov:SNEHA ELAM [employer] FINISHER 06/10/20 Apixaban (Eliquis) 2.5 Mg Tablet, 2.5 MG PO Q12H for 30 Days Prov:LAWANDA COOK [employer]LL FINISHER 04/22/20 Ferrous Sulfate (FERROUS SULFATE) 325 Mg Tablet, 325 MG PO DAILY@0600 for 30 Days Prov:LAWANDA COOK [employer] FINISHER 04/21/20 Ascorbic Acid (ASCORBIC ACID) 500 Mg Tablet, 500 MG PO DAILY, #30 TAB Prov:JOYCEDEEPLAWANDA [employer]Y [employer]LL FINISHER 04/21/20 Pantoprazole Sodium* (PROTONIX) 40 Mg Tablet.dr, 40 MG PO ACB for 30 Days, TAB Prov:JOYCELAWANDA Sofi [employer] FINISHER 04/21/20 Meclizine Hcl (MECLIZINE HCL) 12.5 Mg Tablet, 25 MG PO BID PRN for DIZZINESS, #30 TAB Prov:JOYCELAWANDA BERMUDEZ [employer] FINISHER 04/21/20 Tramadol Hcl (ULTRAM) 50 Mg Tablet, 50 MG PO Q6HR PRN for Mild Pain (1-3) or Fever>100.8, #12 TAB Prov:SHANKAR NEWMAN DO 04/20/20 Reported Medications [Linzess] No Conflict Check, 290 MCG PO PRN 06/03/20 Metformin Hcl (METFORMIN HCL) 500 Mg Tablet, 500 MG PO DAILY PRN for BLOOD SUGAR, #60 TAB 06/02/20 Hydrochlorothiazide (HYDROCHLOROTHIAZIDE) 25 Mg Tablet, 12.5 MG PO DAILY, #30 TAB 06/02/20 Levothyroxine Sodium (LEVOTHYROXINE SODIUM) 88 Mcg Tablet, 88 MCG PO DAILY, #30 TAB 04/20/20 Furosemide (LASIX) 20 Mg Tablet, 20 MG PO DAILY, #30 TAB 04/07/20 Metoprolol Succinate (METOPROLOL SUCCINATE) 25 Mg Tab.er.24h, 1 TAB PO DAILY 04/07/20 Fenofibrate Nanocrystallized (FENOFIBRATE) 145 Mg Tablet, 160 MG PO DAILY 04/07/20 Isosorbide Mononitrate (ISOSORBIDE MONONITRATE ER) 30 Mg Tab.er.24h, 30 MG PO DAILY, #30 TAB 04/07/20 Medications in the ED Sodium Chloride 1,000 ml @ 0 mls/hr Q0M STAT IV Last administered on 07/06/20at 16:57; Admin Dose 999 MLS/HR; Start 07/06/20 at 16:19; Stop 07/06/20 at 16:22; Status DC NEL BONNER MD Jul 06, 2020 17:32
[2020-07-06] MEDS ORDERED: SODIUM CHLORIDE 0.9% 1000ML 1,000 ML IV SCH ×2 (17:45→19:00)
--- NOTE | 2020-07-06 17:59 | Diagnostic Imaging Report ---
EXAMINATION: CHEST SINGLE (PORTABLE) INDICATION: ^AMS ^[id number] ^[id number] COMPARISON: Chest radiograph 06/02/2020 FINDINGS: TUBES and LINES: Unchanged position of left chest wall cardiac device with single lead overlying the cardiac silhouette. LUNGS: Normal lung volumes. Hazy lung base opacity. Pulmonary vascular congestion. PLEURA: Small left and trace right pleural effusions. HEART AND MEDIASTINUM: Unchanged enlarged cardiac silhouette. BONES AND SOFT TISSUES: No acute osseous lesion. Soft tissues are unremarkable. UPPER ABDOMEN: No free air under the diaphragm. IMPRESSION: 1. Cardiomegaly with central pulmonary congestion and left lung base hazy opacity, may represent edema, atelectasis, or infection in appropriate clinical setting. 2. Small left and trace right pleural effusions. Signed by: Dr. Davie Gonzalez M.D. on 07/06/2020 5:56 PM
[2020-07-06] MEDS: CEFTRIAXONE SOD 1 GM/NS 50 ML 50 ML IV SCH (18:34)
[2020-07-06] MEDS: AZITHROMYCIN 500MG/NS 250 ML 250 ML IV SCH (18:34)
--- NOTE | 2020-07-06 20:37 | NUR ---
DR. BONNER, DEEP [place], CALLED AND NOTIFIED OF ABNORMAL LAB VALUES (AMMONIA, K); INSTRUCTED TO CALL ADMITTING PHYSICIAN
--- NOTE | 2020-07-06 20:41 | NUR ---
VOICEMAIL LEFT FOR DR. Sarah PETERSON AT [phone]
--- NOTE | 2020-07-06 21:13 | NUR ---
dr marquez answering service paged at [phone]
[2020-07-06] MEDS ORDERED: SODIUM CHLORIDE 0.9% 1000ML 1,000 ML IV ONE (21:30)
--- NOTE | 2020-07-06 21:30 | NUR ---
dr miranda paged regarding potassium and ammonia levels, lactulose orders were given--dr miranda does not want to add additional interventions for potassium levels at this time as the theory is that the fluid interventions will improve potassium levels to normal.
[2020-07-06 21:48] VITALS: BP 135/51
[2020-07-06] MEDS ORDERED: LACTULOSE SYRUP 20 GM/30 ML UDC PO SCH (22:15)
[2020-07-06] MEDS ORDERED: LORAZEPAM INJ 2 MG/ML VIAL IV ONE (23:30)
[2020-07-07] VITALS (11 sets, daily range): BP systolic 93–114; BP diastolic 42–78
[2020-07-07] MEDS ORDERED: LACTULOSE SYRUP 20 GM/30 ML UDC PO SCH
--- NOTE | 2020-07-07 02:41 | NUR ---
PT IS TRANSFERRED FROM ER AOX1 ,CONFUSED .RESPIRATIONS ARE EVEN AND UNLABORED PT HAS RT AC 20 G AND RT HAND 20 G .PT HAS TELE #31 SHOWS AFIF .PT HAS F/C DRAINING CLEAR YELLOW URINE ABD DISTENDED AND NOTED DECOLORATION LOWER ABD .PT ASSESSMENT DONE ,CALL LIGHT WITH IN REACH ,CONTINUE TO MONITOR
--- NOTE | 2020-07-07 02:41 | NUR ---
PT IS AGITATED AND TRY TO GET OUT OF THE BED .NOTIFIED DR REYEZ AND HAS GIVEN THE ORDER TO ATIVAN 1 MG X1 .MEDICATED THE PT AND PT IS RESTING ,CALL LIGHT WITH IN REACH ,CONTINUE TO MONITOR
[2020-07-07] MEDS: LACTULOSE SYRUP 20 GM/30 ML UDC PO SCH ×4 (05:20→23:00)
--- NOTE | 2020-07-07 06:19 | NUR ---
BS [address] EL NO NEW ORDERS
--- NOTE | 2020-07-07 06:32 | NUR ---
PT RESTING ,CALL LIGHT WITH IN REACH ,CONTINUE TO MONITOR
[2020-07-07] MEDS ORDERED: GLIPIZIDE ER5 MG (07:04)
[2020-07-07] MEDS ORDERED: INFLUENZA VIRUS VAC SPLIT INJ 0.5 ML SYR IM SCH (07:10)
[2020-07-07] MEDS ORDERED: PNEUMOCOCCAL VACCINE POLYVALENT 23 MCG/0.5 ML VIAL IM SCH (07:10)
[2020-07-07 07:24] LABS: BASOPHILS % 0.9 % (0.0-1.0); EOSINOPHILS # (AUTO) 0.1 (0.0-0.4); EOSINOPHILS % 2.6 % (0.0-6.0); HEMATOCRIT 27.8 % (34.2-44.1); HEMOGLOBIN 8.8 g/dL (12.0-16.0); LYMPHOCYTES # (AUTO) 1.2 (1.0-3.2); LYMPHOCYTES % 24.9 % (18.0-39.1); MEAN CORPUSCULAR HGB CONC 31.7 g/dL (31-35); MEAN CORPUSCULAR VOLUME 104.1 fL (81-99); MONOCYTES # (AUTO) 0.8 (0.2-0.8); MONOCYTES % 16.1 % (4.4-11.3); NEUTROPHILS # (AUTO) 2.6 (2.1-6.9); NEUTROPHILS % 55.1 % (38.7-80.0); PLATELET COUNT 98 x10e3/uL (140-360); RED BLOOD COUNT 2.67 x10e6/uL (3.6-5.1); RED CELL DISTRIBUTION WIDTH 21.8 % (11.7-14.4)
[2020-07-07 07:49] LABS: ALBUMIN 2.9 g/dL (3.5-5.0); ANION GAP 13.4 mmol/L (8-16); CALCIUM 8.6 mg/dL (8.4-10.2); CHOL/HDL RATIO 3.9 (3.0-3.6); CREATININE, SERUM 1.41 mg/dL (0.57-1.11); POTASSIUM 4.4 mmol/L (3.5-5.1)
[2020-07-07 08:23] LABS: CREATINE KINASE MB 17.2 ng/mL (0-5.0)
[2020-07-07] MEDS: METOPROLOL SUCCINATE 25 MG TAB XL PO SCH (12:15)
[2020-07-07] MEDS: APIXAB 2.5 MG TABLET PO SCH (12:15)
[2020-07-07] MEDS ORDERED: MECLIZINE HCL 12.5 MG TAB PO PRN (12:15)
[2020-07-07] MEDS ORDERED: METFORMIN HCL 500 MG TAB PO PRN (12:15)
[2020-07-07] MEDS: PANTOPRAZOLE SOD 40 MG TABEC PO SCH (12:15)
[2020-07-07] MEDS ORDERED: ACETAMINOPHEN 325 MG TAB PO PRN (12:15)
[2020-07-07] MEDS ORDERED: GLIPIZIDE 5 MG TAB ER PO SCH (12:30)
[2020-07-07] MEDS ORDERED: DEXTROSE 50% SYRINGE 50 ML IV PRN (12:45)
[2020-07-07] MEDS ORDERED: SODIUM CHLORIDE 0.9% 1000ML 1,000 ML IV SCH (13:00)
[2020-07-07 13:25] LABS: CREATINE KINASE MB 26.4 ng/mL (0-5.0)
[2020-07-07] MEDS: INSULIN REGULAR, HUMAN 100 UNIT/1 ML 3ML VIAL SQ SCH ×2 (16:30→20:07)
[2020-07-07] MEDS: CEFTRIAXONE SOD 1 GM/NS 50 ML 50 ML IV SCH (16:55)
[2020-07-07] MEDS: AZITHROMYCIN 500MG/NS 250 ML 250 ML IV SCH (17:06)
[2020-07-07] MEDS ORDERED: HYDRALAZINE HCL 20 MG/ML VIAL IV PRN (17:15)
[2020-07-07] MEDS ORDERED: ONDANSETRON HCL INJ 2MG/ML 2ML 2 MG/ML VIAL IV PRN (17:15)
--- NOTE | 2020-07-07 19:44 | NUR ---
RECEIVED PT IN BED AOX1 ,SLEEPING ,RESPIRATIONS ARE EVEN AND UNLABORED ,F/C DRAINING CLEAR YELLOW URINE ,CALL LIGHT WITH IN REACH ,CONTINUE TO MONITOR
[2020-07-08] VITALS (7 sets, daily range): BP systolic 94–132; BP diastolic 46–59
[2020-07-08] MEDS: APIXAB 2.5 MG TABLET PO SCH ×3 (00:15→20:16)
[2020-07-08] MEDS ORDERED: RIFAXIMIN 200 MG TAB PO STA (01:58)
[2020-07-08 05:20] LABS: BASOPHILS % 0.9 % (0.0-1.0); EOSINOPHILS # (AUTO) 0.2 (0.0-0.4); EOSINOPHILS % 5.4 % (0.0-6.0); HEMATOCRIT 27.7 % (34.2-44.1); HEMOGLOBIN 8.7 g/dL (12.0-16.0); LYMPHOCYTES # (AUTO) 0.9 (1.0-3.2); LYMPHOCYTES % 26.3 % (18.0-39.1); MEAN CORPUSCULAR HEMOGLOBIN 31.8 pg (28-32); MEAN CORPUSCULAR HGB CONC 31.4 g/dL (31-35); MEAN CORPUSCULAR VOLUME 101.1 fL (81-99); MONOCYTES # (AUTO) 0.4 (0.2-0.8); MONOCYTES % 13.2 % (4.4-11.3); NEUTROPHILS # (AUTO) 1.8 (2.1-6.9); PLATELET COUNT 108 x10e3/uL (140-360); RED BLOOD COUNT 2.74 x10e6/uL (3.6-5.1)
[2020-07-08] MEDS: LACTULOSE SYRUP 20 GM/30 ML UDC PO SCH ×4 (05:23→23:01)
--- NOTE | 2020-07-08 05:23 | NUR ---
PT HAD WATERY STOOL ,DENIES PAIN PT IS MORE ALERT THAN YESTERDAY ,CALL LIGHT WITH IN REACH .CONTINUE TO MONITOR
[2020-07-08 05:42] LABS: ALBUMIN 3.1 g/dL (3.5-5.0); ALBUMIN/GLOBULIN RATIO 1.1 (0.8-2.0); ANION GAP 11.2 mmol/L (8-16); CALCIUM 8.9 mg/dL (8.4-10.2); CREATININE, SERUM 1.42 mg/dL (0.57-1.11); POTASSIUM 4.2 mmol/L (3.5-5.1)
[2020-07-08] MEDS: LEVOTHYROXINE SODIUM 88 MCG TAB PO SCH (06:00)
[2020-07-08 06:18] LABS: % IRON SATURATION 47 % (15-50); IRON 157 ug/dL (50-170); TOTAL IRON BINDING CAPACITY 333 ug/dL (261-478); TRANSFERRIN 238 mg/dL (180-382)
--- NOTE | 2020-07-08 07:10 | NUR ---
BEDSIDE REPORT GIVEN TO THE ONCOMING NURSE
[2020-07-08] MEDS: INSULIN REGULAR, HUMAN 100 UNIT/1 ML 3ML VIAL SQ SCH ×4 (07:30→18:55)
--- NOTE | 2020-07-08 09:14 | Diagnostic Imaging Report ---
EXAMINATION: CHEST SINGLE (PORTABLE) INDICATION: CHF, cough COMPARISON: Chest 07/06/2020 FINDINGS: LINES/TUBES:Left chest pacer. EKG leads overlie the chest. LUNGS:The lungs are well-inflated. Interval improvement in central pulmonary vascular congestion. No focal pneumonia or pulmonary edema. PLEURA:No pleural effusion or pneumothorax. MEDIASTINUM:The cardiomediastinal silhouette appears unchanged in size and shape. Atherosclerotic calcifications of the thoracic aorta. BONES/SOFT TISSUES:No acute osseous injury. ABDOMEN:No free air under the diaphragm. IMPRESSION: Interval improvement in central pulmonary vascular congestion and resolution of pleural effusions. No focal pneumonia or pulmonary edema. Signed by: Kishore Rodriguez MD on 07/08/2020 9:11 AM
[2020-07-08] MEDS: METOPROLOL SUCCINATE 25 MG TAB XL PO SCH (11:22)
[2020-07-08] MEDS: RIFAXIMIN 550 MG TABLET PO SCH ×2 (11:22→18:06)
[2020-07-08] MEDS: ASCORBIC ACID 500 MG TAB PO SCH (11:22)
[2020-07-08] MEDS: PANTOPRAZOLE SOD 40 MG TABEC PO SCH (11:23)
[2020-07-08] MEDS: ISOSORBIDE MONONITRATE 30 MG TAB CR PO SCH (11:23)
--- NOTE | 2020-07-08 12:56 | NUR ---
REPORT GIVEN TO ELIZABETH JASON. WILL TRANSFER PT TO ROOM 287.
--- NOTE | 2020-07-08 13:30 | NUR ---
PHONE REPORT RECEIVED FROM ELZBIETA JOHNSON, MS 1. PATIENT ARRIVED TO FLOOR IN BED TO ROOM 287. PT ASSESSED TO BE ALERT/ORIENTED X4. PERIPHERAL IV ACCESS NOTED TO RAC #20 GAUGE, SALINE LOCK. KINNEY CATHETER DRAINING CLEAR YARELY URINE. PATIENT WEARING A DIAPER. PER REPORT, PATIENT HAD 2 BM'S EARLIER TODAY. PATIENT DENIES ANY FURTHER NEEDS. PT WAS ORIENTED TO UNIT/ROOM/CALL LIGHT/FALL RISK PRECAUTIONS AND VERBALIZED UNDERSTANDING. CALL LIGHT AND BELONGINGS PLACED NEARBY. WILL CONTINUE TO MONITOR.
[2020-07-08] MEDS: TRAMADOL HCL 50 MG TAB PO PRN (18:06)
[2020-07-08] MEDS: CEFTRIAXONE SOD 1 GM/NS 50 ML 50 ML IV SCH (18:06)
[2020-07-08] MEDS: AZITHROMYCIN 500MG/NS 250 ML 250 ML IV SCH (18:06)
[2020-07-08] MEDS ORDERED: SODIUM CHLORIDE 0.9% 500ML 500 ML ONE (18:33)
--- NOTE | 2020-07-08 19:00 | NUR ---
RECEIVED PATIENT IN BEDSIDE SHIFT REPORT. PATIENT RESTING IN BED AT THIS TIME. NO PAIN REPORTED. NO S&S OF DISTRESS NOTED. KINNEY DRAINING CLEAR, LIGHT YARELY URINE TO GRAVITY. BED LOCKED IN LOWEST POSITION, SIDE RAILS UPX2, CALL LIGHT IN REACH.
--- NOTE | 2020-07-08 19:56 | Diagnostic Imaging Report ---
Tagged-RBC GI Bleed Study Clinical information: 75-year-old female with melena and anemia. Discussion: The patient's own red blood cells were labeled with 26 mCi of technetium-99m pertechnetate using the in vitro method (UltraTag). Dynamic images of the abdomen were obtained through 60 minutes. Distribution of tracer activity appears physiologic throughout the abdomen. No abnormal accumulation of tracer is seen within the gastrointestinal lumen. Impression: No scan evidence of active gastrointestinal bleeding at this time. Signed by: Dr. Nicole Farah M.D. on 07/08/2020 7:52 PM
--- NOTE | 2020-07-08 21:00 | NUR ---
PATIENT REFUSING Q2 TURNS AT THIS TIME, STATING SHE IS COMFORTABLE ON HER L SIDE AND DOES NOT WANT TO BE MOVED. WILL CONTINUE TO ATTEMPT.
[2020-07-09] VITALS: BP 97/46
--- NOTE | 2020-07-09 01:31 | Progress Note ---
DATE: CONSULTING PHYSICIANS: 1. Dr. Jermain Valentine with Urology. 2. Dr. Pedro Mcfadden with Gastroenterology. SUBJECTIVE: The patient had two bowel movements earlier today. She has been confused and seems lucid at present. She is pleasant. No inappropriate comments. OBJECTIVE: VITAL SIGNS: Temperature 98.4, pulse 102, blood pressure 132/59 this morning, later on 94/52, respirations 16, oxygen saturation 100%. BMI 44.28. GENERAL: Awake, supine, no acute distress. LUNGS: Clear to auscultation. Respiratory pattern even and unlabored. Normal effort. HEENT: Oropharynx is clear with dry mucous membranes. NECK: Supple. CARDIOVASCULAR: Regular rate and rhythm without murmur. ABDOMEN: Bowel sounds positive. Soft, nontender. EXTREMITIES: No clubbing, cyanosis, or edema. No wounds noted. NEUROLOGICAL: GCS 15. Nonfocal. DIAGNOSTIC STUDIES/LABORATORY DATA: WBCs 3.34, hemoglobin 8.7, hematocrit 27.7, platelets 108. Sodium 146, potassium 4.2, chloride 120, CO2 of 19, anion gap 11.2, BUN 33, creatinine 1.42, estimated GFR 36. Fingerstick blood glucose levels 104, 141, calcium 8.9, total bilirubin 1.3, AST 69, ALT 26, alkaline phosphatase 68, ammonia level 87, total protein 6, albumin 3.1. B-type natriuretic peptide 291.8. Vitamin B12 857, iron 157, TIBC 333% saturation 47, transferrin 238. Fecal occult blood test positive. Coronavirus PCR collected 07/06 was negative. Final urine culture and blood cultures have shown no growth after 36 to 48 hours. IMAGING: GI bleed scan, nuclear medicine was negative. No scan evidence of active GI bleeding at this time. This was done today. Chest x-ray today showed interval improvement and central pulmonary vascular congestion, resolution of pleural effusions. No focal pneumonia or pulmonary edema. Telemetry from today shows sinus rhythm with bundle branch block. Heart rate 93. ASSESSMENT/PLAN: 1. Altered mental status from baseline, hepatic encephalopathy. Continue lactulose. Ammonia level 87, improving. Monitor. 2. Anemia due to chronic GI blood loss. Fecal occult blood test positive. Iron level 157. Transfuse if hemoglobin less than 7. Today hemoglobin 8.7, hematocrit 27.7. 3. UTI due to a chronic Lovelace catheter. Urology following. Lovelace catheter to be left in for now. Continue Rocephin. 4. Left lower lobe pneumonia. Continue IV Rocephin and azithromycin. Chest x-ray shows improvement in pulmonary vascular congestion. 5. Onrpw-ds-hqluxrz diastolic heart failure. Chest x-ray shows improvement in central pulmonary vascular congestion. Hold diuretics for now. B-type natriuretic peptide 291.8 (239.4). 6. Hypertensive heart disease. Blood pressure 132/59 this morning, 94/52 this evening. Continue metoprolol and Isordil. Monitor blood pressure closely. 7. Chronic atrial fibrillation with heart rate control, heart rate low 100s this morning, 90 this evening. Continue metoprolol and Eliquis. 8. Prophylaxis. SCDs/Eliquis/Protonix. Inpatient billing code [id number]. Time spent 35 minutes. Dictated by Nikunj Andres NP Devin Sprague MD HWP/GONSALOL /[id number]
[2020-07-09 04:00] VITALS: BP 119/57
[2020-07-09] MEDS: TRAMADOL HCL 50 MG TAB PO PRN (05:35)
[2020-07-09] MEDS: LEVOTHYROXINE SODIUM 88 MCG TAB PO SCH (05:41)
[2020-07-09] MEDS: LACTULOSE SYRUP 20 GM/30 ML UDC PO SCH ×2 (05:41→11:08)
[2020-07-09 06:19] LABS: BASOPHILS # (AUTO) 0.1 (0.0-0.1); BASOPHILS % 1.3 % (0.0-1.0); EOSINOPHILS # (AUTO) 0.2 (0.0-0.4); EOSINOPHILS % 6.2 % (0.0-6.0); HEMATOCRIT 26.9 % (34.2-44.1); HEMOGLOBIN 8.1 g/dL (12.0-16.0); LYMPHOCYTES # (AUTO) 1.3 (1.0-3.2); LYMPHOCYTES % 32.5 % (18.0-39.1); MEAN CORPUSCULAR HEMOGLOBIN 31.8 pg (28-32); MEAN CORPUSCULAR HGB CONC 30.1 g/dL (31-35); MEAN CORPUSCULAR VOLUME 105.5 fL (81-99); MONOCYTES # (AUTO) 0.5 (0.2-0.8); MONOCYTES % 13.7 % (4.4-11.3); NEUTROPHILS # (AUTO) 1.8 (2.1-6.9); NEUTROPHILS % 45.5 % (38.7-80.0); PLATELET COUNT 105 x10e3/uL (140-360); RED BLOOD COUNT 2.55 x10e6/uL (3.6-5.1); RED CELL DISTRIBUTION WIDTH 21.6 % (11.7-14.4)
[2020-07-09 06:34] LABS: ALBUMIN 2.9 g/dL (3.5-5.0); ANION GAP 9.3 mmol/L (8-16); CALCIUM 8.6 mg/dL (8.4-10.2); CREATININE, SERUM 1.55 mg/dL (0.57-1.11); MAGNESIUM 2.1 MG/DL (1.3-2.1); POTASSIUM 4.3 mmol/L (3.5-5.1)
--- NOTE | 2020-07-09 06:45 | NUR ---
SBAR BEDSIDE REPORT RECEIVED FROM EDWIGE JOHNSON, PM SHIFT. PT FOUND LYING IN BED, AWAKE AAOX4. PATIENT REQUESTED JUICE WHICH WAS PROVIDED. PATIENT DENIED ANY FURTHER NEEDS. PATIENT WAS EDUCATED ON FALL RISK PRECAUTIONS AND VERBALIZED UNDERSTANDING. CALL LIGHT AND BELONGINGS PLACED. WILL CONTINUE TO MONITOR.
[2020-07-09 07:30] VITALS: BP 114/50
[2020-07-09] MEDS: INSULIN REGULAR, HUMAN 100 UNIT/1 ML 3ML VIAL SQ SCH ×2 (07:30→12:29)
[2020-07-09 07:46] LABS: ANISOCYTOSIS MODERATE; OVALOCYTES FEW; TEAR DROP CELLS FEW
[2020-07-09 07:47] LABS: RBC MORPHOLOGY COMMENT ABNORMAL
[2020-07-09 07:48] LABS: PLATELET ESTIMATE SLIGHTLY DECREASED; PLATELET MORPHOLOGY COMMENT NORMAL
[2020-07-09 08:00] VITALS: BP 114/50
[2020-07-09] MEDS ORDERED: HEPARIN SOD (PORCINE) 1000 UNIT/ML SDV ONE (08:15)
[2020-07-09] MEDS: PANTOPRAZOLE SOD 40 MG TABEC PO SCH (08:30)
[2020-07-09] MEDS: ASCORBIC ACID 500 MG TAB PO SCH (09:04)
[2020-07-09] MEDS: METOPROLOL SUCCINATE 25 MG TAB XL PO SCH (09:04)
[2020-07-09] MEDS: ISOSORBIDE MONONITRATE 30 MG TAB CR PO SCH (09:04)
[2020-07-09] MEDS: RIFAXIMIN 550 MG TABLET PO SCH (09:04)
[2020-07-09 11:26] VITALS: BP 118/52
[2020-07-09] MEDS: APIXAB 2.5 MG TABLET PO SCH (11:40)
[2020-07-09] MEDS ORDERED: XIFAXAN550 MG PO (13:13)
[2020-07-09] MEDS ORDERED: LACTULOSE20 GM/30 M PO (13:13)
[2020-07-09 15:13] VITALS: BP 104/56
--- NOTE | 2020-07-09 15:51 | NUR ---
PATIENT DISCHARGED HOME VIA PRIVATE VEHICLE. PERIPHERAL IV WAS DISCONTINUED;CATHETER INTACT WITHOUT RESISTANCE. DRY DRESSING APPLIED. PATIENT RECEIVED DISCHARGE SUMMARY, EDUCATION LEAFLETS, AND WRITTEN PRESCRIPTIONS. CALL PLACED TO PATIENT'S DAUGHTER, GREGORIO KHOURY, WHO WAS MADE AWARE OF DISCHARGE INSTRUCTIONS AND VERBALIZED UNDERSTANDING.
[2020-07-09] MEDS ORDERED: INFLUENZA VIRUS VAC SPLIT INJ 0.5 ML SYR IM SCH (17:00)
[2020-07-09] MEDS ORDERED: PNEUMOCOCCAL VACCINE POLYVALENT 23 MCG/0.5 ML VIAL IM SCH (17:00)
--- NOTE | 2020-07-10 12:59 | Discharge Summary ---
ADMISSION DIAGNOSES: Hepatic encephalopathy; anemia of chronic GI blood loss; urinary tract infection due to chronic Lovelace catheter; left lower lobe pneumonia, present on admission; [id number]-yr-qjjuwoc diastolic congestive heart failure; hypertension with chronic diastolic congestive heart failure; chronic atrial fibrillation. DISCHARGE DIAGNOSES: Hepatic encephalopathy; anemia of chronic GI blood loss; urinary tract infection due to chronic Lovelace catheter; left lower lobe pneumonia, present on admission; qjgzl-av-gzfqxef diastolic congestive heart failure; hypertension with chronic diastolic congestive heart failure; chronic atrial fibrillation; rule out cerebrovascular accident; rule out urinary tract infection; rule out bacteremia. HISTORY: Chronic diastolic CHF, chronic AFib, hepatic insufficiency, urinary retention, type 2 diabetes. SURGICAL HISTORY: Permanent pacemaker and cholecystectomy. HOSPITAL COURSE: A 75-year-old female with mild dementia, is normally oriented and able to answer questions appropriately. She has had declining function for about 2 to 3 days with delirium yesterday per family report. On admission, CT of the brain showed no acute abnormality. Chest x-ray showed cardiomegaly with pulmonary congestion and left lung base hazy opacity, small left and trace right pleural effusion. The patient's coronavirus was negative. Urine drug screen was negative. Ammonia level on admission was 281. She was started on lactulose. The patient's stool for blood was positive, so she had a GI bleed scan, which was negative. Followup chest x-ray showed improvement in congestion and resolution of pleural effusion. No pneumonia or pulmonary edema. Because the patient's AMS improved with lactulose, the patient will discharge home with new prescriptions for Xifaxan and lactulose per GI recommendation. She will follow up outpatient for a PillCam as her recent colonoscopy did not show a reason for GI bleed. She will discharge home with home health for physical therapy. She lives with her daughter. Her daughter understands discharge instructions and agrees to plan. Vital signs stable, the patient afebrile. Dictated by Kathryn Winslow NP Devin Sprague MD RORY/MODL /[id number]
--- OUTSIDE RECORDS SUMMARY | 2020-07-14 14:04 | XMS REPORT | Continuity of Care Document ---
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 Inactive 10/17/2016 [facility] 24 HR Metoprolol Tartrate 100 MG Extende d Release Tablet [Toprol] Notes: (Same as: Toprol XL) May split t ab, but do not crush. Inactive 10/17/2016 [facility] Isosorbide Notes: (Same as:Imd ur) "Do Not Crush" Take on empty stomach/ full glass of water. Inactive 10/17/2016 [facility] Hydrochlorothiazide 25 MG / Triamterene 37.5 MG Oral Capsule Notes: (triamterene-hydrochlorothiazide 37.5-25 mg TAB) (Same As: Maxzide- 25) Inactive 10/17/2016 [facility] Esomeprazole 40 mg, Route: PO, Drug form: ECCAP, Daily, Dosing Weight 99.545, kg, Start date: 10/17/16 9:00:00 TOOL ROOM GEAR MACHINE OPERATOR, Duration: 30 day, Stop date: 11/15/16 9:00:00 TOOL ROOM GEAR MACHINE OPERATOR No Longer Active 10/17/2016 [facility] celecoxib Notes: NSAID. Please check indication. Not for seizure. (Same As: CeleBREX) Inactive 10/17/2016 [facility] Protonix Notes: Tablet should not be chewed or crushed. (Same as: Protonix) Inactive 10/17/2016 [facility] influenza virus vaccine, inactivated Notes: (Same as: Fluzone Quadrivalent, Fluarix Quadrivalent) For 3 years of age and older (0.5 mL IM) Shake well before use Inactive 10/16/2016 [facility] Glipizide 5 MG Oral Tablet Not es: (Same as: Glucotrol) 30 min before meals. No Longer Active 10/16/2016 [facility] Glucagon 1 mg, Route: IM, Drug form: PDR/INJ, PRN, Dosing Weight 99.545, kg, PRN Blood Glucose Results, Start date: 10/16/16 13:15:00 TOOL ROOM GEAR MACHINE OPERATOR, Duration: 30 day, Stop date: 11/15/16 13:14:00 TOOL ROOM GEAR MACHINE OPERATOR No Longer Active 10/16/2016 [facility] Dextrose 50% Syringe 12.5 gm, 25 mL, Route: IVP, Drug Form: INJ, Dosing Weight 99.545, kg, PRN, PRN Blood Glucose Results, Start date: 10/16/16 13:15:00 TOOL ROOM GEAR MACHINE OPERATOR, Duration: 30 day, Stop date: 11/15/16 13:14:00 TOOL ROOM GEAR MACHINE OPERATOR No Longer Active 10/16/2016 [facility] Insulin, Aspart, Human Notes: Roll in palms of hands gently; Do not shake vigorously. (Same as: NovoLOG) "single patient use only" WASTE: F/P - Black; E - 8tracks Radio Trash Bin Stable for 28 days at room temperature. Expires in days from Date No Longer Active 10/16/2016 [facility] Lyrica Notes: Same as Lyrica No Longer Active 10/16/2016 [facility] tramadol hydrochloride 50 MG Oral Tablet Notes: Not to exceed 400mg/day. (Same As: Ultram) No Longer Active 10/16/2016 [facility] acetaminophen-codeine #3 Notes : Do not exceed 4gm/day of acetaminophen. (Same as: Tylenol with Codeine # 3) No Longer Active 10/16/2016 [facility] Vancomycin 2001 mg: infuse ov er 2.5 hours MEDICATION WASTE Product Size: 1000 mg Product Wasted: ___ mg Inactive 10/16/2016 [facility] Glipizide 5 MG Oral Tablet 5 m g = 1 tab, PO, BID-Before Meals, # 30 tab, 1 Refill(s) Active 10/15/2016 [facility] apixaban 5 MG Oral Tablet [Eliquis] 5 mg = 1 tab, PO, Daily, 0 Refill(s) Active 10/15/2016 [facility] metoprolol 100 mg oral tablet, extended release 100 mg = 1 tab, PO, Daily, # 30 tab, 0 Refill(s) Active 10/15/2016 [facility] pregabalin 50 MG Oral Capsule [Lyrica] 50 mg = 1 cap, PO, TID, 0 Refill(s) Active 10/15/2016 [facility] tramadol hydrochloride 50 MG Oral Tablet 50 mg = 1 tab, PO, Q6H, PRN Pain, # 40 tab, 0 Refill(s) Active 10/15/2016 [facility] dronedarone 400 MG Oral Tablet [Multaq] 400 mg = 1 tab, PO, BID, # 60 tab, 0 Refill(s) Active 10/15/2016 [facility] Esomeprazole 40 MG Enteric Coated Capsule 40 mg = 1 cap, PO, Daily, # 30 cap, 0 Refill(s) Active 10/15/2016 [facility] Metformin hydrochloride 500 MG Oral Tablet 500 mg = 1 tab, PO, BID-Meals, # 30 tab, 0 Refill(s) Active 10/15/2016 [facility] celecoxib 200 mg oral capsule 200 mg = 1 cap, PO, Daily, # 30 cap, 0 Refill(s) Active 10/15/2016 [facility] isosorbide mononitrate 30 mg oral tablet , extended release 30 mg = 1 tab, PO, QAM, # 30 tab, 0 Refill(s) Active 10/15/2016 [facility] Hydrochlorothiazide 25 MG / Triamterene 37.5 MG Oral Capsule 1 cap, PO, Daily, # 30 cap, 0 Refill(s) Active 10/15/2016 [facility] Thyroxine Daily, 0 Refill(s) Active 10/15/2016 [facility] Metoprolol Succinate 1 TABLET Orally Active [...] D (Ergocalciferol) 1 c apsule Orally Active [address] UNIT Orally [facility] Isosorbide [...] [facility] Solu-MEDROL Assertion Drug allergy Active [facility] Immunizations Immunization Date Given Site Status Last Updated Comments Source influenza virus vaccine, inactivated 10/16/2016 Right deltoid completed [place] [facility] Results Order Name Results Value Reference Range [...] should be multiplied by the estimated BMI. [facility] CHEM PANEL Potassium Lvl 4.3 3.5 - 5.1 10/15/2016 [facility] CHEM PANEL Chloride Lvl 111 95 - 109 10/15/2016 [facility] CHEM PANEL CO2 25 24 - 32 10/15/2016 [facility] CHEM PANEL Calcium Lvl 9.2 8.5 - 10.5 10/15/2016 [facility] CHEM PANEL Creatinine Lvl 1.10 0.50 - 1.40 10/15/2016 [facility] CHEM PANEL BUN 24 7 - 22 10/15/2016 [facility] CHEM PANEL Sodium Lvl 143 135 - 145 10/15/2016 [facility] CHEM PANEL Glucose Lvl 162 70 - 99 10/15/2016 [facility] CHEM PANEL AGAP 11.3 10.0 - 20.0 10/15/2016 [facility] HEMATOLOGY Lymphocytes # 1.3 1.0 - 5.5 10/15/2016 [facility] HEMATOLOGY Segs-Bands # 3.6 1.5 - 8.1 10/15/2016 [facility] HEMATOLOGY Monocytes # 0.6 0.0 - 0.8 10/15/2016 [facility] HEMATOLOGY Basophils 0.7 0.0 - 1.0 10/15/2016 [facility] HEMATOLOGY Eosinophils # 0.2 0.0 - 0.5 10/15/2016 [facility] HEMATOLOGY Segs 62.5 45.0 - 75.0 10/15/2016 [facility] HEMATOLOGY Lymphocytes 22.7 20.0 - 40.0 10/15/2016 [facility] HEMATOLOGY Eosinophils 3.4 0.0 - 4.0 10/15/2016 [facility] HEMATOLOGY Monocytes 10.7 2.0 - 12.0 10/15/2016 [facility] HEMATOLOGY PTT 32.6 22.9 - 35.8 10/15/2016 [facility] HEMATOLOGY INR 1.26 0.85 - 1.17 10/15/[address] [facility] PT 16.1 12.0 - 14.7 10/15/[address] [facility] MCH 31.1 27.0 - 31.0 10/15/[address] [facility] MCV 95.1 80.0 - 98.0 10/15/[address] [facility] MCHC 32.7 32.0 - 36.0 10/15/[address] [facility] Hct 42.7 36.0 - 48.0 10/15/[address] [facility] MPV 9.9 7.4 - 10.4 10/15/[address] [facility] Platelet 135 133 - 450 10/15/[address] [facility] RDW 14.0 11.5 - 14.5 10/15/[address] [facility] RBC 4.49 4.20 - 5.40 10/15/[address] [facility] WBC 5.8 3.7 - 10.4 10/15/[address] [facility] Hgb 14.0 12.0 - 16.0 10/15/2016 [facility] Pathology Reports No Data Provided for [...] canal and left neural foraminal stenosis. 03/26/2020 [facility] Chest 2 views DX Patient Name: AMAURY CONTE : 1945; Age: 71 years Female MR: [id number] Study: Chest 2 views DX Order Time: 10/17/2016 3:00 AM TOOL ROOM GEAR MACHINE OPERATOR CLINICAL INDICATION: Line Placement ADDITIONAL HISTORY: None COMPARISON: Chest radiograph on 10/16/2016 FINDINGS: Lines: Stable position of the left chest pacemaker. Lungs: Hyperinflated lungs. Linear scarring and/or atelectasis within the left midlung. No effusion or pneumothorax. Mediastinum: The cardiac silhouette is mildly enlarged. Midline trachea. Bones and soft tissues: Unremarkable. IMPRESSION: No acute cardiopulmonary abnormalities. SL: [id number] 10/17/2016 [facility] Chest 1view DX Patient Name: AMAURY CONTE : 1945; Age: 71 years y/o Female MR: [id number] Study: Chest 1view DX 10/16/2016 11:25 AM TOOL ROOM GEAR MACHINE OPERATOR Ordering Physician: MD Omer Zelaya MD Clinical [...] pneumothorax seen. No other new/acute findings. SL: [id number] 10/16/2016 [facility] Consultation Notes No Data Provided for This Section Discharge Summaries No Data Provided for This Section History and Physicals No Data Provided for This Section Vital Signs Vital Sign Value Date Comments Source Respitory Rate 16 10/17/2016 [facility] Systolic (mm Hg) 97 10/17/2016 [facility] Diastolic (mm Hg) 59 10/17/2016 [facility] Heart Rate 71 10/17/2016 [facility] Temperature Oral (F) 98.1 F 10/17/2016 [facility] Systolic (mm Hg) 111 10/17/2016 [facility] Diastolic (mm Hg) 63 10/17/2016 [facility] Respitory Rate 18 10/17/2016 [facility] Temperature Oral (F) 98.1 F 10/17/2016 [facility] Heart Rate 79 10/17/2016 [facility] Respitory Rate 16 10/17/2016 [facility] Systolic (mm Hg) 130 10/17/2016 [facility] Diastolic (mm Hg) 72 10/17/2016 [facility] Heart Rate 85 10/17/2016 [facility] Temperature Oral (F) 98.1 F 10/17/2016 [facility] BMI Calculated 41.47 10/15/2016 [facility] Height 154.94 cm 10/15/2016 [facility] Weight 99.545 10/15/2016 [facility] Weight 232 06/13/2014 [facility] [...] Provider ADM Date DC Date Status Source [facility] Emergency [id number] THELMA BARCENAS 12/01/2012 12/01/2012 Discharged [facility] Rose Mary MCMILLAN PA ECHO [id number] 02/23/20 14 02/22/2014 [facility] Mary MCMILLAN PA ECHO [id number] 02/23/20 14 02/22/2014 [facility] Rose Mary MCMILLAN PA ECHO [id number] 02/23/20 14 02/22/2014 [facility] Rose Mary MCMILLAN PA ECHO [id number] 02/23/20 14 02/22/2014 [facility] Rose Mary JACOBSON ECHO [id number] 02/23/20 14 02/22/2014 [facility] Rose Mary JACOBSON ECHO [id number] 02/23/20 14 02/22/2014 [facility] Rose Mary MCMILLAN PA ECHO [id number] 02/23/20 14 02/22/2014 [facility] Rose Mary MCMILLAN PA ECHO [id number] 02/23/20 14 02/22/2014 [facility] Rose Mary MCMILLAN PA F/U FOR ECHO [id number] 02/23/20 14 02/22/2014 [facility] Rose Mary MCMILLAN PA F/U FOR ECHO [id number] 02/23/20 14 02/22/2014 [facility] Rsoe Mary MCMILLAN PA F/U FOR ECHO [id number] 02/23/20 14 02/22/2014 [facility] Rose Mary MCMILLAN PA F/U FOR ECHO [id number] 02/23/20 14 02/22/2014 [facility] Rose Mary MCMILLAN PA F/U FOR ECHO [id number] 02/23/20 14 02/22/2014 [facility] Rose Mary MCMILLAN PA F/U FOR ECHO [id number] 02/23/20 14 02/22/2014 [facility] Rose Mary MCMILLAN PA F/U FOR ECHO [id number] 02/23/20 14 02/22/2014 [facility] Rose Mary MCMILLAN PA F/U FOR ECHO [id number] 02/23/20 14 02/22/2014 [facility] Rose Mary MCMILLAN PA Refills [id number] 05/01/20 14 05/01/2014 [facility] Rose Mary MCMILLAN PA Refills [id number] 05/01/20 14 05/01/2014 [facility] Rose Mary MCMILLAN PA Refills [id number] 05/01/20 14 05/01/2014 [facility] Rose Mary MCMILLAN PA Refills [id number] 05/01/20 14 05/01/2014 [facility] Rose Mary MCMILLAN PA Refills [id number] 05/01/20 14 05/01/2014 [facility] Mary MCMILLAN PA Refills [id number] 05/01/20 14 05/01/2014 [facility] Rose Mary MCMILLAN PA Refill [id number] 05/03/20 14 05/03/2014 [facility] Mary MCMILLAN PA Refill [id number] 05/03/20 14 05/03/2014 [facility] Rose Mary MCMILLAN PA Refill [id number] 05/03/20 14 05/03/2014 [facility] Rose Mary MCMILLAN PA Refill [id number] 05/03/20 14 05/03/2014 [facility] Rose Mary MCMILLAN PA Refill [id number] 05/03/20 14 05/03/2014 [facility] Rose Mary MCMILLAN PA Refill [id number] 05/03/20 14 05/03/2014 [facility] Rose Mary MCMILLAN PA Refills [id number] 05/03/20 14 05/03/2014 [facility] Rose Mary MCMILLAN PA Refills [id number] 05/03/20 14 05/03/2014 [facility] Rose Mary MCMILLAN PA Refills [id number] 05/03/20 14 05/03/2014 [facility] Rose Mary MCMILLAN PA Refills [id number] 05/03/20 14 05/03/2014 [facility] Rose Mary John MCMILLAN PA Refills [id number] 05/03/20 14 05/03/2014 [facility] Rose Mary John MCMILLAN PA Refills [id number] 05/03/20 14 05/03/2014 [facility] Rose Mary John JACOBSON Unknown [id number] 05/03/20 14 05/03/2014 [facility] Rose Mary John JACOBSON Unknown [id number] 05/03/20 14 05/03/2014 [facility] Rose Marynhan JACOBSON Unknown [id number] 05/03/20 14 05/03/2014 [facility] Rose Marynhan JACOBSON Unknown [id number] 05/03/20 14 05/03/2014 [facility] Rose Mary John JACOBSON Unknown [id number] 05/03/20 14 05/03/2014 [facility] Rose Mary JACOBSON Unknown [id number] 05/03/20 14 05/03/2014 [facility] Rose Marynhan JACOBSON medicatins [id number] 06/13/20 14 06/13/2014 [facility] Rose Marynhan JACOBSON medicatins [id number] 06/13/20 14 06/13/2014 [facility] Rose Marynhan MCMILLAN PA REFILL [id number] 06/13/20 14 06/13/2014 [facility] Rose Mary MCMILLAN PA REFILL [id number] 06/13/20 14 06/13/2014 [facility] Bedded Outpatient [id number] Omer Zelaya 10/16/2016 10/17/2016 [facility] [id number] Homer Castellanosaraz 03/26/2020 03/27/2020 [facility] Procedures Procedure Code Date Perfomer Comments Source Appendectomy [id number] [facility] Cholecystectomy [id number] [facility] Hysterectomy [id number] [facility] Lumbar spinal fusion [id number] [facility] Assessment and Plan No Data Provided for This Section Plan of Care No Data Provided for This Section Social History Social History Date Source Social History TypeResponse Smoking Status Never smoker; Exposure to Tobacco Smoke None; Cigarette Smoking Last 365 Days No; Reg Smoking Cessation Counseling No 10/15/2016 [facility] Social History TypeResponse Smoking Status Never smoker; Exposure to Tobacco Smoke None; Cigarette Smoking Last 365 Days No; Reg Smoking Cessation Counseling No entered on: 10/15/16 10/15/2016 [facility] Social History ElementQualifiersDate Rep orted Diet: . [...]
--- OUTSIDE RECORDS SUMMARY | 2020-07-14 14:06 | XMS REPORT | Continuity of Care Document ---
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 Name Role Phone DO Rose MARTINEZ PCP HUE PETERSON Attphys Unavailable Douglas NEWMAN Attphys Unavailable Sofi Benz Attphys Carolee BONNER Attphys Unavailable Omer Pitt Attphys HUE PETERSON Admphys Unavailable Payers Payer Name Policy Type Policy Number Effective Date Expiration Date Douglas [facility] Medicare Complete [id number] 2020 00:00:00 [facility] Cdc Review [id number] [facility] [id number] 2018 00:00:00 [facility] Problems Condition Name Condition Details Condition Category Status Onset Date Resolution Date Last Treatment Date Treating Clinician Comments Source TALI CESAR Active 10/14/2016 [facility] Active 2016-10-14 00:00:00 2016-10-24 07:28:00 Sofi Faust DIZZINESS DIZZ INESS Active 12/01/2012 [facility] Diagnosis Active 2012-12-01 00:00:00 2012-12-01 18:43:00 Osbaldo Faust Chronic atrial fibrillation Atrial fibrillation, chronic Problem Active [facility] Balance problems Balance problem Problem Active [facility] Vertigo Vertigo Problem Active [facility] Altered mental status Problem Active [facility] Macrocytic anemia Problem Active [facility] Acute renal insufficiency Problem Active [facility] Hypernatremia Problem Active [facility] Back pain Problem Active [facility] Hepatic encephalopathy Problem Active [facility] Renal insufficiency Problem Active [facility] Hyperbilirubinemia Problem Active [facility] Coagulation disorder Problem Active [facility] Urinary tract infection Problem Active [facility] Gastrointestinal hemorrhage Problem Active [facility] Anemia Problem Active [facility] Congestive heart failure Problem Active [facility] Diabetes mellitus (disorder) D iabetes mellitus (disorder) Resolved Problem 03/28/2020 [facility] [place] Problem Resolved 2020-03-28 23:28:22 Isrrael Faust Hypertensive disorder, systemic arterial (disorder) Hypertensive disorder, systemic arterial (disorder) Resolved Problem 03/28/2020 [facility] [place] Problem Resolved 2020-03-28 23 :28:22 Osbaldo Faust [...] 06/22/2014 [facility] Diagnosis Active 2014-06-22 02:59:33 [facility] Allergies, Adverse Reactions, Alerts Allergy Name Allergy Type Status Severity Reaction(s) Onset Date Inacti ve Date Treating Clinician Comments Source STEROIDS Allergy to substance Active 2018-11-10 00:00:00 [facility] N.KLeathaAMarty Villalobos Active Info Not Available 2014-06-13 00:00:00 [facility] Neuromuscular Blockers, Steroidal DA Active U 2012-02-12 00:00:00 [facility] Solu-MEDROL Solu-MEDROL Active [facility] Family History Family Member Diagnosis Comments Start Date Stop Date Source Unknown Family Member Family History 2014-02-23 04:18:31 2 04:18:31 [facility] Social History Social Habit Start Date Stop Date Quantity Comments Source Diet: 2014-06-13 00:00:00 2014-06-13 00:00:00 Osbaldo Govind Sex Ass[birth year] At 1945 00:00:00 1945 00:00:00 Female [facility] Smoking Status Start Date Stop Date Source Social History [facility] Medications Ordered Medication Name Filled Medication Name Start Date Stop Da te Current Medication? Ordering Clinician Indication Dosage Frequency Signature (SIG) Comments Components Source Lactulose Lactulose 2020-07-09 13:13:00 Yes 20 Twice A Day [facility] Rifaximin (Xifaxan) 550 Mg TABLET Rifaximin (Xifaxan) 550 Mg TABLET 2020-07-09 13:13:00 Yes 550 Twice A Day [facility] Penicillin V Potassium (Pencillin V Potassium*) 250 Mg TAB Penicillin V Potassium (Pencillin V Potassium*) 250 Mg TAB 2020-06-10 13:54:00 00:00:00 No 500 Every 8 Hours C HI [facility] Acetaminophen Acetaminophen 2020-06-10 13:25:00 Yes 650 Every 6 Hours as needed for Mild Pain (1-3) Or Fever>100.8 [facility] Oxybutynin Chloride (Ditropan Xl) 5 Mg TAB.ER.24 Oxybu tynin Chloride (Ditropan Xl) 5 Mg TAB.ER.24 2020-06-10 13:25:00 Yes 10 Daily At 6:00PM [facility] Tramadol Hcl (Ultram 50MG*) 50 Mg TAB Tramadol Hcl (Ultram 5 0MG*) 50 Mg TAB 2020-06-10 13:25:00 Yes 50 Every 6 Hours as needed for Mild Pain (1-3) Or Fever>100.8 [facility] Ceftriaxone Sodium (Ceftriaxone) 1 Gm VIAL Ceftriaxone Sodium (Ceftriaxone) 1 Gm VIAL 2020-04-26 09:51:00 2020-06-02 00:00:00 No 1 Jesse y [facility] Apixaban (Eliquis) 2.5 Mg TABLET Apixaban (Eliquis) 2.5 Mg T ABLET 2020-04-22 09:25:00 Yes 2.5 Every 12 Hours [facility] Lactulose Lactulose 2020-04-21 09:12:00 2020-06-02 00:00:00 No 30 Daily@0600 [facility] Ascorbic Acid Ascorbic Acid 2020-04-21 09:06:00 Yes 500 Daily [facility] Ferrous Sulfate Ferrous Sulfate 2020-04-21 09:06:00 Yes 325 Daily@0600 [facility] Meclizine Hcl Meclizine Hcl 2020-04-21 09:06:00 Yes 25 Twice A Day as needed for Dizziness [facility] Pantoprazole Sodium (Protonix) 40 Mg TABLET. Pantopr azole Sodium (Protonix) 40 Mg TABLET. 2020-04-21 09:06:00 Yes 40 Before Mary Ellen kfast [facility] Tramadol Hcl (Ultram) 50 Mg TABLET Tramadol Hcl (Ultram) 50 Mg TABLET 2020-04-20 01:00:00 2020-07-09 00:00:00 No 50 Every 6 Hours as needed for Mild Pain (1-3) Or Fever>100.8 [facility] Pantoprazole Sodium (Protonix) 40 Mg TABLET. Pantopr azole Sodium (Protonix) 40 Mg TABLET. 2020-04-09 10:43:00 2020-04-21 00:00:00 No 40 Before Breakfast [facility] Baclofen Baclofen 2018-11-11 10:52:00 2020-04-07 00:00:00 No 5 Every 12 Hours as needed for Muscle Spasm [facility] Fluticasone Propionate Fluticasone Propionate 2018-11-11 10:52:0 0 2020-04-07 00:00:00 No 0 Twice A Day [facility] Meclizine Hcl Meclizine Hcl 2018-11-11 10:52:00 2020-04-07 00:00:00 No 25 Every 6 Hours as needed for Vertigo [facility] Pregabalin (Lyrica) 50 Mg CAP Pregabalin (Lyrica) 50 Mg CAP 2018 10:52:00 2020-04-07 00:00:00 No 50 Three Times A Day as needed for Pain [facility] Minocycline 2016-10-17 15:00:00 No Notes: (Same as:Minocin) No milk/antacids/iron. Osbaldo Faust 24 HR Metoprolol Tartrate 100 MG Extended Release Tablet [To prol] 2016-10-17 15:00:00 No Notes: (Sa me as: Toprol XL) May split tab, but do not crush. [facility] Isosorbide 2016-10-17 15:00:00 No Notes: (Same as:Imdur) "Do Not Crush" Take on empty stomach/ full glass of water. Osbaldo Faust Hydrochlorothiazide 25 MG / Triamterene 37.5 MG Oral Capsule 2016-10-17 15:00:00 No Notes: (tr iamterene-hydrochlorothiazide 37.5-25 mg TAB) (Same As: Maxzide-) [facility] Esomeprazole 2016-10-17 15:00:00 No 40 mg, Route: PO, Drug form: ECCAP, Daily, Dosing Weight 99.545, kg, Start date: 10/17/16 9:00:00 HEALTH PROFESSIONAL, Duration: 30 day, Stop date: 11/15/16 9:00:00 HEALTH PROFESSIONAL Osbaldo Faust celecoxib 2016-10-17 15:00:00 No Notes: NSAID. Please check indication. Not for seizure. (Same As: CeleBREX) Osbaldo Faust Protonix 2016-10-17 13:30:00 No Notes: Tablet should not be chewed or crushed. (Same as: Protonix) [facility] influenza virus vaccine, inactivated 2016-10-16 22:30:00 No Notes: (Same as: Fluzone Quadrivalent, Fluarix Quadrivalent) For 3 years of age and older (0.5 mL IM) Shake well before use [facility] Glipizide 5 MG Oral Tablet 2016-10-16 22:30:00 No Notes: (Same as: Glucotrol) 30 min before meals. Cristian Faust Glucagon 2016-10-16 19:15:00 No 1 mg, Route: IM, Drug form: PDR/INJ, PRN, Dosing Weight 99.545, kg, PRN Blood Glucose Results, Start date: 10/16/16 13:15:00 HEALTH PROFESSIONAL, Duration: 30 day, Stop date: 11/15/16 13:14:00 HEALTH PROFESSIONAL [facility] [place] Dextrose 50% Syringe 2016-10-16 19:15:00 No 12.5 gm, 25 mL, Route: IVP, Drug Form: INJ, Dosing Weight 99.545, kg, PRN, PRN Blood Glucose Results, Start date: 10/16/16 13:15:00 HEALTH PROFESSIONAL, Duration: 30 day, Stop date: 11/15/16 13:14:00 [facility] [place] Insulin, Aspart, Human 2016-10-16 19:15:00 No Notes: Roll in palms of hands gently; Do not shake vigorously. (Same as: NovoLOG) "single patient use only" WASTE: F/P - Black; E - Municipal Trash Bin Stable for 28 days at room temperature. Expires in days from Date [facility] Godineza 2016-10-16 19:00:00 No Notes: Same a douglas Weaver [facility] [place] tramadol hydrochloride 50 MG Oral Tablet 2016-10-16 17:26:00 No Notes: Not to exceed 400mg/day. (Same As: Ultram) [facility] acetaminophen-codeine #3 2016-10-16 17:25:00 No Notes: Do not exceed 4gm/day of acetaminophen. (Same as: Tylenol with Codeine # 3) [facility] Vancomycin 2016-10-16 17:25:00 No 2001 mg: infuse over 2.5 hours MEDICATION WASTE Product Size: 1000 mg Product Wasted: ___ mg [facility] Glipizide 5 MG Oral Tablet 2016-10-15 16:47:00 Yes 5 mg = 1 tab, PO, BID-Before Meals, # 30 tab, 1 Refill(s) [facility] apixaban 5 MG Oral Tablet [Eliquis] 2016-10-15 16:46:00 Yes 5 mg = 1 tab, PO, Daily, 0 Refill(s) [facility] osvaldo metoprolol 100 mg oral tablet, extended release 2016-10-15 16:46 :00 Yes 100 mg = 1 tab, PO, Daily, # 30 tab, 0 Refill(s) [facility] pregabalin 50 MG Oral Capsule [Lyrica] 2016-10-15 16:46:00 Yes 50 mg = 1 cap, PO, TID, 0 Refill(s) [facility] tramadol hydrochloride 50 MG Oral Tablet 2016-10-15 16:46:00 Yes 50 mg = 1 tab, PO, Q6H, PRN Pain, # 40 tab, 0 Refill(s) [facility] dronedarone 400 MG Oral Tablet [Multaq] 2016-10-15 16:45:00 Yes 400 mg = 1 tab, PO, BID, # 60 tab, 0 Refill(s) [facility] Esomeprazole 40 MG Enteric Coated Capsule 2016-10-15 16:45:00 Yes 40 mg = 1 cap, PO, Daily, # 30 cap, 0 Refill(s) [facility] Metformin hydrochloride 500 MG Oral Tablet 2016-10-15 16:45:00 Yes 500 mg = 1 tab, PO, BID-Meals, # 30 tab, 0 Refill(s) [facility] celecoxib 200 mg oral capsule 2016-10-15 16:44:00 Yes 200 mg = 1 cap, PO, Daily, # 30 cap, 0 Refill(s) Me morial Govind isosorbide mononitrate 30 mg oral tablet, extended release 2016-10-15 16:44:00 Yes 30 mg = 1 tab, PO, QAM, # 30 ta b, 0 Refill(s) [facility] Hydrochlorothiazide 25 MG / Triamterene 37.5 MG Oral Capsule 2016-10-15 16:44:00 Yes 1 cap, PO, Daily, # 30 cap, 0 Refill(s) [facility] Thyroxine 2016-10-15 16:29:00 Yes Daily, 0 R efill(s) [facility] Levothyroxine Sodium 2014-06-22 02:59:33 Yes John Sha laby 1 tablet on an empty stomach in the morning [facility] [place] Vitamin D (Ergocalciferol) 2014-06-22 02:59:33 Yes Davi ed Rose Mary 1 capsule [facility] Isosorbide Mononitrate CR 2014-06-22 02:59:33 Yes Dre d Rose Mary 1 tablet [facility] Metformin 2014-06-22 02:59:33 Yes John Bazzi as direct [facility] Triamterene 2014-06-22 02:59:33 Yes Mohbrandon Rose Mary 1 capsule [facility] Xarelto 2014-06-22 02:59:33 Yes Mohamed Rose Mary 1 tablet with food [facility] Amiodarone 2014-06-22 02:59:33 Yes John Rose Mary 1/2 tab [facility] GlipiZIDE 2014-06-22 02:59:33 Yes Mohamed Rose Mary 1 tablet [facility] Warfarin Sodium 2014-06-22 02:59:33 Yes Jhonatanamed Rose Mary 1 tablet [facility] Ciprofloxacin 500 mg BID 7d 2014-06-22 02:59:33 Yes Savannah med Rose Mary one tab [facility] Metoprolol 2014-06-22 02:59:33 Yes John Bazzi as directed [facility] Metoprolol Succinate 2014-06-13 00:00:00 Yes Mohamed Rose Mary 1 TABLET [facility] Triamterene-HCTZ 2014-06-13 00:00:00 Yes Mohamed Rose Mary 1 tablet in the morning [facility] Eliquis 2014-06-13 00:00:00 Yes John Bazzi a s directed [facility] Metoprolol 2014-02-23 04:18:31 Yes John Bazzi as directed [facility] Fenofibrate Nanocrystallized (Fenofibrate) 145 Mg TABL ET Fenofibrate Nanocrystallized (Fenofibrate) 145 Mg TABLET Yes 160 Daily [facility] Furosemide (Lasix) 20 Mg TABLET Furosemide (Lasix) 20 Mg TABLET Yes 20 Daily [facility] Glipizide (Glipizide Er) 5 Mg TAB.ER.24 Glipizide (Glipizide Er) 5 Mg TAB.ER.24 Yes Daily [facility] Hydrochlorothiazide Hydrochlorothiazide Yes 12.5 Daily [facility] Isosorbide Mononitrate (Isosorbide Mononitrate Er) 30 Mg TAB.ER.24H Isosorbide Mononitrate (Isosorbide Mononitrate Er) 30 Mg TAB.ER.24H Yes 30 Daily [facility] Levothyroxine Sodium Levothyroxine Sodium Yes 88 Daily [facility] Linzess Linzess Yes 290 As Needed [facility] Metformin Hcl Metformin Hcl Yes 500 Jesse y as needed for Blood Sugar [facility] Metoprolol Succinate Metoprolol Succinate Yes 1 Daily [facility] Lisinopril Lisinopril 2020-06-02 00:00:00 No 20 Nia ly [facility] Mecobalamin (B12 Active) 1,000 Mcg TAB.CHEW Mecobalami n (B12 Active) 1,000 Mcg TAB.CHEW 2020-06-02 00:00:00 No 1 Daily [facility] Apixaban (Eliquis) 5 Mg TAB.DS.PK Apixaban (Eliquis) 5 Mg TAB.DS .PK 2020-04-22 00:00:00 No 1 Twice A Day [facility] Iron Iron 2020-04-21 00:00:00 No 65 Daily [facility] Meclizine Hcl Meclizine Hcl 2020-04-21 00:00:00 No 25 Daily [facility] Amiodarone Hcl Amiodarone Hcl 2020-04-07 00:00:00 No 100 Daily [facility] Eliquis Eliquis 2020-04-07 00:00:00 No 5 Daily [facility] Fenofibrate Fenofibrate 2020-04-07 00:00:00 No 160 D aily [facility] Levothyroxine Sodium Levothyroxine Sodium 2020-04-07 00:00:[address] [facility] Lisinopril (Prinavil / Zestril) 20 Mg TABLET Lisinopri l (Prinavil / Zestril) 20 Mg TABLET 2020-04-07 00:00:00 No 20 Daily [facility] Metoprolol Succinate Metoprolol Succinate 2020-04-07 00:00:[address] [facility] Triamterene/Hydrochlorothiazid (Triamterene-Hctz 37.5- 25 Mg Cp) 1 Each CAPSULE Triamterene/Hydrochlorothiazid (Triamterene-Hctz 37.5-25 Mg Cp) 1 Each CAPSULE 2020-04-07 00:00:00 No 1 Daily [facility] Pregabalin (Lyrica) 50 Mg CAP Pregabalin (Lyrica) 50 Mg CAP 2018-11-11 00:00:00 No 50 Three Times A Day [facility] Vital Signs Vital Name Observation Time Observation Value Comments Source Body Temperature 2020-07-09 15:13:00 97.6 [degF] [facility] BMI (Body Mass Index) 2020-07-07 09:26:00 44.3 kg/m2 [facility] Weight 2020-07-06 16:00:00 250 [lb_av] [facility] Body Temperature 2020-06-10 15:51:00 98.8 [degF] [facility] Weight 2020-06-02 17:55:00 229.31 [lb_av] [facility] BMI (Body Mass Index) 2020-06-02 17:55:00 38.2 kg/m2 [facility] Body Temperature 2020-04-26 16:05:00 98.5 [degF] [facility] BMI (Body Mass Index) 2020-04-20 21:19:00 37.9 kg/m2 [facility] Weight 2020-04-20 12:52:00 228 [lb_av] [facility] Weight 2020-04-19 21:20:00 228 [lb_av] [facility] BMI (Body Mass Index) 2020-04-19 21:20:00 37.9 kg/m2 [facility] Body Temperature 2020-04-09 12:10:00 97.4 [degF] [facility] Weight 2020-04-07 23:59:00 228.03 [lb_av] [facility] BMI (Body Mass Index) 2020-04-07 23:59:00 37.9 kg/m2 [facility] Respitory Rate 2016-10-17 18:00:00 Memori al [facility] Systolic (mm Hg) 2016-10-17 18:00:00 Steffen rial [place] Diastolic (mm Hg) 2016-10-17 18:00:00 Mem orial [facility] Heart Rate 2016-10-17 18:00:00 [facility] [place] Temperature Oral (F) 2016-10-17 18:00:00 98.1 F [facility] [place] [facility] Systolic (mm Hg) 2016-10-17 14:00:00 Steffen rial [place] Diastolic (mm Hg) 2016-10-17 14:00:00 Mem orial Govind Respitory Rate 2016-10-17 14:00:00 Memori al [facility] Temperature Oral (F) 2016-10-17 14:00:00 98.1 F [facility] Heart Rate 2016-10-17 14:00:00 [facility] [place] Respitory Rate 2016-10-17 10:00:00 Memori al [facility] Systolic (mm Hg) 2016-10-17 10:00:00 Steffen rial [facility] Diastolic (mm Hg) 2016-10-17 10:00:00 Mem orial [place] Heart Rate 2016-10-17 10:00:00 [facility] Temperature Oral (F) 2016-10-17 10:00:00 98.1 F [facility] BMI Calculated 2016-10-15 16:25:00 Benjamín Tejadaann Height 2016-10-15 16:25:00 154.94 cm [facility] Weight 2016-10-15 16:25:00 [facility] [place] Weight 2014-06-13 14:30:00 [facility] Heart Rate 2014-06-13 14:30:00 [facility] Diastolic (mm Hg) 2014-06-13 14:30:00 Mem orial [facility] Systolic (mm Hg) 2014-06-13 14:30:00 Steffen rial [place] Weight 2014-02-22 18:45:00 [facility] Heart Rate 2014-02-22 18:45:00 [facility] [place] Diastolic (mm Hg) 2014-02-22 18:45:00 Mem orial [facility] Systolic (mm Hg) 2014-02-22 18:45:00 Steffen rial [place] Weight 2013-11-16 18:45:00 [facility] Heart Rate 2013-11-16 18:45:00 [facility] [place] Diastolic (mm Hg) 2013-11-16 18:45:00 Mem orial [place] Systolic (mm Hg) 2013-11-16 18:45:00 Steffen rial [place] Procedures Procedure Date / Time Performed Performing Clinician [facility] e Computed tomography of brain without radiopaque contrast 2020-06 00:00:00 [facility] TRANSFUSE NONAUT FROZEN PLASMA IN PERIPH VEIN, PERC 2020-06-03 0 0:00:00 [facility] Computed tomography of brain without radiopaque contrast 2020-05 00:00:00 [facility] EXCISION OF ESOPHAGUS, ENDO, DIAGN 2020-06-02 00:00:00 [facility] TRANSFUSE NONAUT RED BLOOD CELLS IN PERIPH VEIN, PERC 2020-06-02 00:00:00 [facility] INSPECTION OF UPPER INTESTINAL TRACT, ENDO 2020-04-24 00:00:00 [facility] EXCISION OF TRANSVERSE COLON, ENDO, DIAGN 2020-04-24 00:00:00 [facility] DESTRUCTION OF SIGMOID COLON, ENDO 2020-04-24 00:00:00 [facility] Computed tomography of brain without radiopaque contrast 2020-04 00:00:00 [facility] Computed tomography of cervical spine without contrast 4 00:00:00 [facility] EXCISION OF STOMACH, ENDO, DIAGN 2020-04-09 00:00:00 [facility] DESTRUCTION OF STOMACH, ENDO 2020-04-09 00:00:00 [facility] Computed tomography angiography of brain 2020-04-08 00:00:[address] [facility] CT angiography of neck 2020-04-08 00:00:00 [facility] US Liver 2020-04-08 00:00:00 [facility] Computed tomography of brain without radiopaque contrast 2020-03 00:00:00 [facility] Computed tomography of chest without contrast 2020-04-07 00:00:0 0 [facility] TRANSFUSE NONAUT RED BLOOD CELLS IN PERIPH VEIN, PERC 2020-04-07 00:00:00 [facility] Appendectomy [facility] Cholecystectomy [facility] Hysterectomy [facility] Lumbar spinal fusion [facility] Plan of Care Planned Activity Planned Date Details Comments Source Instructions Diabetes and Diet [facility] Encounters Start Date/Time End Date/Time Encounter Type Admission Type Attendi [facility] Facility Care Department Encounter ID Source 2020-07-06 18:51:00 2020-07-09 15:47:00 Discharged Inpatient 1 HUE PETERSON [facility] [id number] [facility] 2020-06-02 16:07:00 2020-06-10 16:35:00 Discharged Inpatient 1 HUE PETERSON [facility] [id number] [facility] 2020-04-20 16:01:00 2020-04-26 17:11:00 [id number] 2020-04-19 23:00:00 2020-04-20 01:31:00 Departed Emergency Room 1 SHANKAR NEWMAN [facility] [id number] Radhika [facility] 2020-04-07 13:13:00 2020-04-09 14:47:00 Discharged Inpatient 1 HUE PETERSON [facility] [id number] [facility] 2020-03-26 12:17:00 2020-03-26 23:59:00 Outpatient Homer Benz OIB OIB [id number] 2019-02-05 04:59:00 2019-02-05 06:13:00 Departed Emergency Room [facility] [id number] [facility] 2018-11-10 08:44:00 2018-11-11 20:25:00 Discharged Inpatient (obs) 1 NEL BONNER [facility] [id number] [facility] 2016-10-16 08:20:00 2016-10-17 15:39:00 Outpatient Omer Gautam [facility] [id number] 2014-06-13 10:27:00 2014-06-13 10:27:00 Outpatient Rose Mary JACOBSON [id number] [employer] 2014-06-13 09:30:00 2014-06-13 09:30:00 Outpatient Rose Mary JACOBSON [id number] [employer] 2014-05-03 14:04:00 2014-05-03 14:04:00 [place] [id number] [employer] 2014-05-03 13:53:00 2014-05-03 13:53:00 Outpatient Rose Mary JACOBSON [id number] [employer] 2014-05-03 10:49:00 2014-05-03 10:49:00 [place] [id number] [employer] 2014-05-01 15:06:00 2014-05-01 15:06:00 [place] [id number] [employer] 2014-02-22 13:45:00 2014-02-22 13:45:00 Outpatient Rose Mary JACOBSON [id number] [employer] 2014-02-22 13:30:00 2014-02-22 13:30:00 Outpatient Rose Mary JACOBSON [id number] [employer] Results Test Description Test Time Test Comments Results Result Comments Source Capillary blood glucose measurement by glucometer (mas s/volume) 2020-07-09 14:59:00 Test Item Bedside Glucose (test code = 38907-5) 124 70-120 Meter ID: [id number] leukocytes automated count (number/volume)2020-07-09 05:28:00* Test Item Value Reference Range Interpretation Comments White Blood Count (test code = 6690-2) 3.88 4.8-10.8 [facility] count (number/volume)2020-07-09 05:28:00* Test Item Value Reference Range Interpretation Comments Red Blood Count (test code = 789-8) 2.55 3.6-5.1 [facility] (moles/volume)2020-07-09 05:28:00* Test Item Value Reference Range Interpretation Comments Hemoglobin (test code = 42772-0) 8.1 12.0-16.0 [facility] hematocrit (volume fraction)2020-07-09 05:28:00* Test Item Value Reference Range Interpretation Comments Hematocrit (test code = 4544-3) 26.9 34.2-44.1 [facility] erythrocyte mean corpuscular [id number] 05:28:00* Test Item Value Reference Range Interpretation Comments Mean Corpuscular Volume (test code = 787-2) 105.5 81-99 [facility] CenterAutomated erythrocyte mean corpuscular hemoglobin (mass per erythrocyte)2020-07-09 05:28:00* Test Item Value Reference Range Interpretation Comments Mean Corpuscular Hemoglobin (test code = 785-6) 31.8 28-32 [facility] CenterAutomated erythrocyte mean corpuscular hemoglobin concentration measurement (mass/volume)2020-07-09 05:28:00* Test Item Value Reference Range Interpretation Comments Mean Corpuscular Hemoglobin Concent (test code = 786-4) 30.1 31-35 [facility] CenterRDW KmwTr-Wyl5265-94-22 05:28:00* Test Item Value Reference Range Interpretation Comments Red Cell Distribution Width (test code = 56420-3) 21.6 11.7 -14.4 [facility] CenterAutomated blood platelet count (count/volume)2020-07-09 05:28:00* Test Item Value Reference Range Interpretation Comments Platelet Count (test code = 777-3) 105 140-360 [facility] CenterAutomated blood segmented neutrophil count as percentage of total dpmbvcnisv0471-98-25 05:28:00* Test Item Value Reference Range Interpretation Comments Neutrophils (%) (Auto) (test code = 98735-5) 45.5 38.7-80.0 [facility] CenterAutomated blood lymphocyte count as percentage ot total oaixhxxwxj1498-19-31 05:28:00* Test Item Value Reference Range Interpretation Comments Lymphocytes (%) (Auto) (test code = 736-9) 32.5 18.0-39.1 [facility] CenterAutomated blood monocyte count as percentage of total kxoyfuwppo4412-44-94 05:28:00* Test Item Value Reference Range Interpretation Comments Monocytes (%) (Auto) (test code = 5905-5) 13.7 4.4-11.3 [facility] CenterAutomated blood eosinophil count as percentage of total wkoauozhtn0643-25-65 05:28:00* Test Item Value Reference Range Interpretation Comments Eosinophils (%) (Auto) (test code = 713-8) 6.2 0.0-6.0 [facility] CenterAutomated blood basophil count as percentage of total ikxqdlyway8755-14-12 05:28:00* Test Item Value Reference Range Interpretation Comments Basophils (%) (Auto) (test code = 706-2) 1.3 0.0-1.0 [facility] CenterFluoroscopic procedure less than one hour mizmphbf8729-95-17 05:28:00* Test Item Value Reference Range Interpretation Comments IM GRANULOCYTES % (test code = IM GRANULOCYTES %) 0.8 0.0- 1.0 [facility] CenterAutomated blood neutrophil count 2020-07-09 05:28:00* Test Item Value Reference Range Interpretation Comments Neutrophils # (Auto) (test code = 751-8) 1.8 2.1-6.9 [facility]Bl[facility] lymphocytes count (number/volume) 2020-07-09 05:28:00* Test Item Value Reference Range Interpretation Comments Lymphocytes # (Auto) (test code = 39821-3) 1.3 1.0-3.2 [facility]Bl[facility] monocytes automated count (number/volume)2020-07-09 05:28:00* Test Item Value Reference Range Interpretation Comments Monocytes # (Auto) (test code = 742-7) 0.5 0.2-0.8 [facility] CenterAutomated blood eosinophil count 2020-07-09 05:28:00* Test Item Value Reference Range Interpretation Comments Eosinophils # (Auto) (test code = 711-2) 0.2 0.0-0.4 [facility] CenterAutomated blood basophil count (count/volume)2020-07-09 05:28:00* Test Item Value Reference Range Interpretation Comments Basophils # (Auto) (test code = 704-7) 0.1 0.0-0.1 [facility] CenterFluoroscopic procedure less than one hour quabgwdu3906-22-62 05:28:00* Test Item Value Reference Range Interpretation Comments Absolute Immature Granulocyte (auto (lyssa t code = Absolute Immature Granulocyte (auto) 0.03 0-0.1 [facility] CenterBlood platelets count by estimate (number/volume)2020-07-09 05:28:00* Test Item Value Reference Range Interpretation Comments Platelet Estimate (test code = 06825-7) SLIGHTLY DECREASED [facility] CenterPlatelet usjgcjkube5199-97-74 05:28:00* Test Item Value Reference Range Interpretation Comments Platelet Morphology Comment (test code = 40578-4) NORMAL [facility] anisocytosis detection by light mefkyjlbkx2255-14-21 05:28:00* Test Item Value Reference Range Interpretation Comments Anisocytosis (test code = 702-1) MODERATE [facility] CenterBlood macrocytes detection by light uwedhjxors6572-93-45 05:28:00* Test Item Value Reference Range Interpretation Comments Macrocytosis (test code = 738-5) SLIGHT [facility] dacrocytes detection by light kijolajqii5567-79-15 05:28:00* Test Item Value Reference Range Interpretation Comments Tear Drop Cells (test code = 7791-7) FEW [facility] CenterBlood ovalocytes detection by light ghniagfbrz8234-53-93 05:28:00* Test Item Value Reference Range Interpretation Comments Ovalocytes (test code = 774-0) FEW [facility] CenterRBC rfwvbopfyj5344-75-11 05:28:00* Test Item Value Reference Range Interpretation Comments Red Cell Morphology Comment (test code = 6742-1) ABNORMAL [facility] sodium measurement (moles/volume)2020-07-09 05:28:00* Test Item Value Reference Range Interpretation Comments Sodium Level (test code = 2951-2) 147 136-145 [facility] Hospitalerum or plasma potassium measurement (moles/volume)2020-07-09 05:28:00* Test Item Value Reference Range Interpretation Comments Potassium Level (test code = 2823-3) 4.3 3.5-5.1 [facility] Hospitalerum or plasma chloride measurement (moles/volume)2020-07-09 05:28:00* Test Item Value Reference Range Interpretation Comments Chloride Level (test code = 2075-0) 122 98-107 [facility] Hospitalerum or plasma carbon dioxide, total measurement (moles/volume)2020-07-09 05:28:00* Test Item Value Reference Range Interpretation Comments Carbon Dioxide Level (test code = 2028-9) 20 22-29 [facility] Hospitalerum or plasma anion bla4761-86-66 05:28:00* Test Item Value Reference Range Interpretation Comments Anion Gap (test code = 08105-5) 9.3 8-16 [facility] Hospitalerum or plasma urea nitrogen measurement (mass/volume)2020-07-09 05:28:00* Test Item Value Reference Range Interpretation Comments Blood Urea Nitrogen (test code = 3094-0) 30 7-26 [facility] Hospitalerum or plasma creatinine measurement (mass/volume)2020-07-09 05:28:00* Test Item Value Reference Range Interpretation Comments Creatinine (test code = 2160-0) 1.55 0.57-1.11 [facility] Hospitalerum or plasma urea nitrogen/creatinine mass smwic0450-65-35 05:28:00* Test Item Value Reference Range Interpretation Comments BUN/Creatinine Ratio (test code = 3097-3) 19 6-25 [facility] CenterEstimated glomerular filtration rate (GFR) miacrbbeosfam5591-38-30 05:28:00* Test Item Value Reference Range Interpretation Comments Estimat Glomerular Filtration Rate (test code = 045410111) 33 >60 Ranges were taken from the National Kidney Disease Education Program and the [facility] literature.Reference ranges:60 or greater: Rzzvjf22-51 ( for 3 consecutive months): Chronic kidney disease 15 or less: Kidney failurePampa Regional Medical CenterGlucose aielvakhkma8545-21-06 05:28:00* Test Item Value Reference Range Interpretation Comments Glucose Level (test code = FBJ6981) 96 74-118 [facility] Hospitalerum or plasma calcium measurement (mass/volume)2020-07-09 05:28:00* Test Item Value Reference Range Interpretation Comments Calcium Level (test code = 85836-3) 8.6 8.4-10.2 [facility] CenterPhosphorus fdaopnppekl3340-92-54 05:28:00 * Test Item Value Reference Range Interpretation Comments Phosphorus Level (test code = AKP8509) 3.0 2.3-4.7 [facility] Hospitalerum or plasma magnesium measurement (mass/volume)2020-07-09 05:28:00* Test Item Value Reference Range Interpretation Comments Magnesium Level (test code = 65807-5) 2.1 1.3-2.1 [facility] Hospitalerum or plasma total bilirubin measurement (mass/volume)2020-07-09 05:28:00* Test Item Value Reference Range Interpretation Comments Total Bilirubin (test code = 1975-2) 1.0 0.2-1.2 [facility] CenterFluoroscopic procedure less than one hour ntnqkund1481-54-84 05:28:00* Test Item Value Reference Range Interpretation Comments Aspartate Amino Transf (AST/SGOT) (test code = Aspartate Amino Transf (AST/SGOT)) 65 5-34 [facility] Hospitalerum or plasma alanine aminotransferase measurement (enzymatic activity/volume)2020-07-09 05:28:00* Test Item Value Reference Range Interpretation Comments Alanine Aminotransferase (ALT/SGPT) (test code = 1742-6) 26 0-55 [facility] Hospitalerum or plasma protein measurement (mass/volume)2020-07-09 05:28:00* Test Item Value Reference Range Interpretation Comments Total Protein (test code = 2885-2) 5.7 6.5-8.1 [facility] Hospitalerum or plasma albumin measurement (mass/volume)2020-07-09 05:28:00* Test Item Value Reference Range Interpretation Comments Albumin (test code = 1751-7) 2.9 3.5-5.0 [facility] CenterPlasma globulin measurement (mass/volume) 2020-07-09 05:28:00* Test Item Value Reference Range Interpretation Comments Globulin (test code = 36474-5) 2.8 2.3-3.5 [facility] Hospitalerum or plasma albumin/globulin mass bpqwi3244-03-37 05:28:00* Test Item Value Reference Range Interpretation Comments Albumin/Globulin Ratio (test code = 1759-0) 1.0 0.8-2.0 [facility] Hospitalerum or plasma alkaline phosphatase measurement (enzymatic activity/volume)2020-07-09 05:28:00* Test Item Value Reference Range Interpretation Comments Alkaline Phosphatase (test code = 6768-6) 67 40-150 [facility] I YQSEX6230-14-27 19:51:00 [facility] [address] [address] Patient Name: AMAURY CONTE MR #: [id number] : 1945 Age/Sex: 75/F Req #: [id number] Adm Physician: HUE PETERSON MD Ordered by: GUILLERMO OLSON MD Report #: [id number] Location: MED/SURG3 Room/Bed: [facility] Procedure: NM/G I BLEED Exam Date: 07/08/20 Exam Time: 1500 REPORT STATUS: Signed Tagged-RBC GI Bleed Study Clinical information: 75-year-old female with melena and anemia. Discu ssion: The patient's own red blood cells were labeled with 26 mCi of technetiu m-99m pertechnetate using the in vitro method (UltraTag). Dynamic images of t he abdomen were obtained through 60 minutes. Distribution of tracer activit y appears physiologic throughout the abdomen. No abnormal accumulation of tra cer is seen within the gastrointestinal lumen. Impression: No scan ev idence of active gastrointestinal bleeding at this time. Signed by: Dr. Andrew Farah M.D. on 07/08/2020 7:52 PM Dictated By: NICOLE FARAH MD Electr onically Signed By: NICOLE FARAH MD on 07/08/201951 Transcribed By: JUAN on 07/08/201951 COPY TO: GUILLERMO OLSON MD CHEST SINGLE (PORTABLE) 2020-07-08 09:09:[address] [address] Patient Name: AMAURY CONTE MR #: [id number] : 1945 Age/Sex: 75/F Req #: [id number] Adm Physician: HUE PETERSON MD Ordered by: HUE PETERSON MD Report #: [id number] Location: MED/SURG Room/Bed: [facility] Procedure: [id number] DX/CHEST SINGL E (PORTABLE) Exam Date: 07/08/20 Exam Time: 0834 REPORT STATUS: Signed EXAMINATION: CHEST SINGLE (PORTABLE) INDICATION: CHF, cough COMPARISON: Chest 07/06/2020 FINDINGS: LINES/TUBES:Left chest pacer. EKG leads overlie the chest. LUNGS:The lungs are well-inflated. Interval improvement in central pulmonary vascular congestion. No focal pneumonia or pulmonary jose r a. PLEURA:No pleural effusion or pneumothorax. MEDIASTINUM:The cardiom ediastinal silhouette appears unchanged in size and shape. Atherosclerotic angelito cifications of the thoracic aorta. BONES/SOFT TISSUES:No acute osseous inju ry. ABDOMEN:No free air under the diaphragm. IMPRESSION: Interva l improvement in central pulmonary vascular congestion and resolution of pleur al effusions. No focal pneumonia or pulmonary edema. Signed by: Mayte David MD on 07/08/2020 9:11 AM Dictated By: MAYTE DAVID MD Electronically Lilly d By: MAYTE DAVID MD on 07/08/20910 Transcribed By: JUAN on 07/08/20910 COPY TO: HUE PETERSON MD Stool gastrointestinal hemoglobin qgffbvamh1094-45-32 06:00:00* Test Item Value Reference Range Interpretation Comments Stool Occult Blood (test code = 2335-8) POSITIVE NEGATIVE [facility] CenterAutomated reticulocyte count as percentage of total vlbcvjervlwk4819-78-67 05:00:00* Test Item Value Reference Range Interpretation Comments Percent Reticulocyte Count (test code = 93714-8) 2.5 0.8-2 .2 [facility] Hospitalerum or plasma iron measurement (mass/volume)2020-07-08 05:00:00* Test Item Value Reference Range Interpretation Comments Iron Level (test code = 2498-4) 157 50-170 [facility] Hospitalerum or plasma iron binding capacity measurement (mass/volume)2020-07-08 05:00:00* Test Item Value Reference Range Interpretation Comments Total Iron Binding Capacity (test code = 2500-7) 333 261-4 78 [facility] Hospitalerum or plasma iron saturation measurement (mass fraction)2020-07-08 05:00:00* Test Item Value Reference Range Interpretation Comments Percent Iron Saturation (test code = 2502-3) 47 15-50 [facility] Hospitalerum or plasma transferrin measurement (mass/volume)2020-07-08 05:00:00* Test Item Value Reference Range Interpretation Comments Transferrin (test code = 3034-6) 238 180-382 [facility] CenterAmmonia Opr-iEqm2264-55-21 05:00:00* Test Item Value Reference Range Interpretation Comments Ammonia (test code = 78924-4) 87 31-123 [facility] CenterBNP Dfy-oTtj0895-29-21 05:00:00* Test Item Value Reference Range Interpretation Comments B-Type Natriuretic Peptide (test code = 85107-6) 291.8 0-100 [facility] Hospitalerum or plasma creatine kinase measurement (enzymatic activity/volume)2020-07-08 05:00:00* Test Item Value Reference Range Interpretation Comments Creatine Kinase (test code = 2157-6) 253 29-168 [facility] Hospitalerum or plasma creatine kinase MB measurement (mass/volume)2020-07-08 05:00:00* Test Item Value Reference Range Interpretation Comments Creatine Kinase MB (test code = 70401-3) 9.00 0-5.0 [facility] CenterTroponin I measurement by highly sensitive enzyme jlqgpielscf1889-50-33 05:00:00* Test Item Value Reference Range Interpretation Comments Troponin I (test code = 10516-2) 0.043 0-0.300 [facility] CenterBlood cobalamin (vitamin B12) measurement (mass/volume)2020-07-08 05:00:00* Test Item Value Reference Range Interpretation Comments Vitamin B12 Level (test code = 07750-7) 857 213816 [facility] Hospitalerum or plasma folate measurement (mass/volume)2020-07-08 05:00:00* Test Item Value Reference Range Interpretation Comments Folate (test code = 2284-8) 15.7 >3.0 A serum folate concentration of less than 3.1 ng/mL isconsidered to represent cl inical deficiency.Performed at: - [facility] [id number] Director: Skip Garner MD, Phone: [phone] Children's Hospitalerum or plasma triglyceride measurement (mass/volume) 2020-07-07 05:35:00* Test Item Value Reference Range Interpretation Comments Triglycerides Level (test code = 2571-8) 69 0-149 [facility] Hospitalerum or plasma cholesterol measurement (mass/volume)2020-07-07 05:35:00* Test Item Value Reference Range Interpretation Comments Cholesterol Level (test code = 2093-3) 78 0-199 Less than 200 mg/dL Low Hygh413 - 239 mg/dL Borderline Yaot305 m g/dl and greater High Risk [facility] Hospitalerum or plasma cholesterol in LDL measurement (mass/volume) 2020-07-07 05:35:00* Test Item Value Reference Range Interpretation Comments LDL Cholesterol (test code = 2089-1) 44 60-130 [facility] Hospitalerum or plasma cholesterol in HDL measurement (mass/volume)2020-07-07 05:35:00* Test Item Value Reference Range Interpretation Comments HDL Cholesterol (test code = 2085-9) 20 40-60 [facility] Hospitalerum or plasma total cholesterol/cholesterol in HDL mass adepa4383-88-47 05:35:00* Test Item Value Reference Range Interpretation Comments Cholesterol/HDL Ratio (test code = 9830-1) 3.9 3.0-3.6 [facility]Fluoroscopic procedure less than one hour uzlhupxl8057-70-35 19:58:00* Test Item Value Reference Range Interpretation Comments Coronavirus (PCR) (test code = Coronavirus (PCR)) NOT DETECTED NOTD ETECTED SARS-CoV-2 PCRHologic Aptima SARS-CoV-2 assay is a nucleic amplification test in tended for the qualitative detection of RNA from SARS-CoV-2 from nasopharyngeal ([employer]) specimens. It is used under Emergency Use Authorization (EUA) by FDA.A posi tive result is indicative of the presence of SARS-CoV-2 RNA. Clinical correlatio n with patient history and other diagnostic information is necessary to determin e patient infection status.A negative (Not Detected) result does not preclude SA RS-CoV-2 infection. Clinical Correlation with patient history and other diagnost ic information should be used in patient management decisions.Invalid: Unable to generate a valid result on this specimen. Please submit a new specimen for repr at testing oc clinically indicated.Tesing performed by:[facility] [place] [id number], Behzad givens MD, PhDPampa Regional Medical CenterCHEST SINGLE (PORTABLE) 2020-07-06 17:54:00 [facility] [address] [place] [address] Patient Name: AMAURY CONTE MR #: [id number] : 1945 Age/Sex: 75/F Req #: [id number] Adm Physician: Ordered by: NEL BONNER MD Report #: [id number] Location: ER Room/Bed: Procedure: [id number] DX/CHEST SINGL E (PORTABLE) Exam Date: 07/06/20 Exam Time: 1658 REPORT STATUS: Signed EXAMINATION: CHEST SINGLE (PORTABLE) INDICATION: AMS [id number] COMPARISON: Chest radiograph 06/02/2020 FINDINGS: TUBES and LINES: Unchanged position of left chest wall cardiac device with single lead overlying the cardiac silhouette. LUNGS: Normal lung volumes. Hazy lung b ase opacity. Pulmonary vascular congestion. PLEURA: Small left and trac e right pleural effusions. HEART AND MEDIASTINUM: Unchanged enlarged cardi ac silhouette. BONES AND SOFT TISSUES: No acute osseous lesion. Soft tis sues are unremarkable. UPPER ABDOMEN: No free air under the diaphragm. IMPRESSION: 1. Cardiomegaly with central pulmonary congestion and lef t lung base hazy opacity, may represent edema, atelectasis, or infection in ap propriate clinical setting. 2. Small left and trace right pleural effusions . Signed by: Dr. Davie Gonzalez M.D. on 07/06/2020 5:56 PM Dict ated By: DAVIE GONZALEZ MD 55 COPY TO: NEL BONNER MD CT BRAIN FK7495-81-64 17:25:[address] [address] Patient Name: AMAURY CONTE MR #: [id number] : 1945 Age/Sex: 75/F Req #: [id number] Adm Physician: Ordered by: NEL BONNER MD Report #: [id number] Location: ER Room/Bed: Procedure: [id number] CT/CT BRAIN WO Exam Date: 07/06/20 Exam Time: 1659 REPORT STATUS: Signed Exam: Head CT without con trast History: Altered mental status Comparison studies: Head CT 06/02/2020 Technique: Axial images were obtained from the skull base to the vertex. Coronal and sagittal images reconstructed from the axial data. Dose modula tion, iterative reconstruction, and/or weight based adjustment of the mA/kV wa s utilized to reduce the radiation dose to as low as reasonably achievable. Radiation dose: Total DLP: 1842.8 mGy*cm. Estimated effective dose: D LP x 0.015 Intravenous contrast: None Findings: Scalp: No abnormali ties. Bones: No fractures, blastic or lytic lesions. Brain sulci: Appropr iate for age. Ventricles: Normal in size and configuration. No hydrocephalus. Extra-axial spaces: No masses, no fluid collection. Parenchyma: Ill-d efined confluent hypodensities in the supratentorial white matter are nonspeci fic but are most compatible with chronic microvascular ischemic changes. No ma ss, acute hemorrhage or acute Sellar/suprasellar region: No abnormalities. Craniocervical junction: Patent foramen magnum. No Chiari one malformation. Incidental findings: Bilateral intraocular lens replacements. Calcified atherosclerosis in the carotid siphons and left intradural vertebral artery. IMPRESSION: 1. No acute intracranial abnormalities. 2. No changes from the prior head CT of 05/23/2018 3. Moderate microvascular ischemic changes . Signed by: Dr. Luciana Finley M.D. on 07/06/2020 5:28 PM Dictated B y: LUCIANA FINLEY MD 27 Transcribed By: JUAN on 07/06/201727 COPY TO: NEL BONNER MD Prothrombin time (PT) in platelet poor plasma by coagulation assay 2020-07-06 16:20:00* Test Item Value Reference Range Interpretation Comments Prothrombin Time (test code = 5902-2) 22.1 11.9-14.5 [facility] CenterINR in Platelet poor plasma by Coagulation rsgxa4882-57-29 16:20:00* Test Item Value Reference Range Interpretation Comments Prothromb Time International Ratio (test code = 6301-6) 1.84 Oral Anticoagulant Therapy INR Values:1. Low Intensity Therapy 1.5 - 2.02 . Moderate Intensity Therapy 2.0 - 3.03. High Intensity Therapy(1) 2.5 - 3. 54. High Intensity Therapy(2) 3.0 - 4.05. Panic Value INR > 5.0 [facility] CenterActivated partial thromboplastin time (aPTT) in platelet poor plasma by coagulation xuhry7663-34-22 16:20:00* Test Item Value Reference Range Interpretation Comments Activated Partial Thromboplast Time (test code = 82786-8) 39.4 23.8-35.5 [facility] CenterUrine color vmaskfkxtwaed7415-85-97 16:20:00* Test Item Value Reference Range Interpretation Comments Urine Color (test code = 5778-6) YELLOW YELLOW [facility] CenterUrine zzsjfzt9091-63-58 16:20:00* Test Item Value Reference Range Interpretation Comments Urine Clarity (test code = 36161-1) CLEAR CLEAR [facility] Hospitalpecific gravity of Urine by Test strip 2020-07-06 16:20:00* Test Item Value Reference Range Interpretation Comments Urine Specific [place] (test code = 5811-5) 1.025 1.010-1.02 5 [facility] CenterUrine pH measurement by automated test kzktk4056-70-80 16:20:00* Test Item Value Reference Range Interpretation Comments Urine pH (test code = 89225-2) 7 5-7 [facility] CenterUrine leukocyte esterase detection by bkssjpka3319-16-07 16:20:00* Test Item Value Reference Range Interpretation Comments Urine Leukocyte Esterase (test code = 5799-2) NEGATIVE NEGATIVE [facility] CenterUrine nitrite pgbeejaww5674-91-51 16:20:00* Test Item Value Reference Range Interpretation Comments Urine Nitrite (test code = 13602-0) NEGATIVE NEGATIVE [facility] CenterUrine protein measurement by test strip (mass/volume)2020-07-06 16:20:00* Test Item Value Reference Range Interpretation Comments Urine Protein (test code = 5804-0) NEGATIVE NEGATIVE [facility] CenterUrine glucose pfsnuclfy5721-77-80 16:20:00* Test Item Value Reference Range Interpretation Comments Urine Glucose (UA) (test code = 2349-9) NEGATIVE NEGATIVE [facility] CenterUrine ketones detection by automated test tkauc7606-69-46 16:20:00* Test Item Value Reference Range Interpretation Comments Urine Ketones (test code = 41315-4) NEGATIVE NEGATIVE [facility] CenterUrine opiates screening xvlr4555-84-53 16:20:00* Test Item Value Reference Range Interpretation Comments Urine Opiates Screen (test code = 19159-0) NEGATIVE NEGATIVE ALL TESTS PERFORMED MANUALLY ON cloud.IQ TOX/SEE TESTPampa Regional Medical CenterBarbiturates screen, sxvea3177-53-07 16:20:00* Test Item Value Reference Range Interpretation Comments Urine Barbiturates Screen (test code = 232782262) NEGATIVE NEGA TIVE [facility] CenterUrine phencyclidine detection by screening kjqwmd1744-78-17 16:20:00* Test Item Value Reference Range Interpretation Comments Urine Phencyclidine Screen (test code = 26311-2) NEGATIVE NEGAT RAUDEL [facility] CenterUrine amphetamines detection by screen method > 1000 ng/oG5319-65-81 16:20:00* Test Item Value Reference Range Interpretation Comments Urine Amphetamines Screen (test code = 26316-3) NEGATIVE NEGATI VE [facility] CenterFluoroscopic procedure less than one hour olabrlqo8569-68-66 16:20:00* Test Item Value Reference Range Interpretation Comments Urine Methamphetamines Screen (test code = Urine Metha mphetamines Screen) NEGATIVE NEGATIVE [facility] CenterUrine benzodiazepines detection by screening feyjjx3364-59-80 16:20:00* Test Item Value Reference Range Interpretation Comments Urine Benzodiazepines Screen (test code = 86611-2) NEGATIVE NEG ATIVE [facility] CenterU[facility] cocaine measurement (mass/volume) 2020-07-06 16:20:00* Test Item Value Reference Range Interpretation Comments Urine Cocaine Screen (test code = 3398-5) NEGATIVE NEGATIVE [facility] CenterUrine cannabinoids detection by screening vszpyh2664-01-13 16:20:00* Test Item Value Reference Range Interpretation Comments Urine Cannabinoids Screen (test code = 06191-9) NEGATIVE NEGATI VE THESE RESULTS ARE FOR MEDICAL TREATMENT ONLYTHIS REPORT CONTAINS UNCONFIR MED SCREENING RESULTS*POSITIVE RESULTS WILL BE CONFIRMED BY REFERENCE LAB UPON R EQUEST CUT-OFFDRUG CLASS CONCENTRATION ng/mLAmphetamines 1000Methamphetamines 1000Cocaine 300Opiate 300Phencyc lidine 25Cannabinoid 50Barbiturates 300Benzodiazepine 300Methadone 300[facility] CenterUrine methadone fjbvja8112-92-60 16:20:00* Test Item Value Reference Range Interpretation Comments Urine Methadone Screen (test code = 54365-9) NEGATIVE NEGATIVE THESE RESULTS ARE FOR MEDICAL TREATMENT ONLYTHIS REPORT CONTAINS UNCONFIR MED SCREENING RESULTS*POSITIVE RESULTS WILL BE CONFIRMED BY REFERENCE LAB UPON R EQUEST CUT-OFFDRUG CLASS CONCENTRATION ng/mLAmphetamines 1000Methamphetamines 1000Cocaine Metabolite 300Opiate 300Phencyc lidine 25Cannabinoid 50Barbiturates 300Benzodiazepine 300Methadone 300[facility] CenterUrine urobilinogen measurement by test strip (mass/volume)2020-07-06 16:20:00* Test Item Value Reference Range Interpretation Comments Urine Urobilinogen (test code = 24395-0) 0.2 0.2-1 [facility] CenterUrine total bilirubin measurement (mass/volume)2020-07-06 16:20:00* Test Item Value Reference Range Interpretation Comments Urine Bilirubin (test code = 1978-6) NEGATIVE NEGATIVE [facility] CenterUrine erythrocytes dredsrpex8378-45-47 16:20:00* Test Item Value Reference Range Interpretation Comments Urine Blood (test code = 43763-7) NEGATIVE NEGATIVE [facility] CenterAutomated urine sediment leukocyte count by microscopy (number/high power field)2020-07-06 16:20:00* Test Item Value Reference Range Interpretation Comments Urine WBC (test code = 5821-4) 0-5 0-5 [facility] CenterErythrocytes detection in urine sediment by light gjvdqvcweh2573-65-70 16:20:00* Test Item Value Reference Range Interpretation Comments Urine RBC (test code = 62826-5) NONE 0-5 [facility] CenterBacteria detection in urine sediment by light ymkbjwcrst9489-29-74 16:20:00* Test Item Value Reference Range Interpretation Comments Urine Bacteria (test code = 29596-0) FEW NONE [facility] CenterEpithelial cells detection in urine sediment by light pdlgundngl7541-64-98 16:20:00* Test Item Value Reference Range Interpretation Comments Urine Epithelial Cells (test code = 73856-9) RARE NONE [facility] CenterFluoroscopic procedure less than one hour wkufsgug4684-89-12 16:20:00* Test Item Value Reference Range Interpretation Comments Lactic Acid Level (test code = Lactic Acid Level) 1.7 0.5- 2.0 [facility] CenterBlood ulklyqw5444-91-76 16:20:00* Test Item Value Reference Range Interpretation Comments Blood Culture (test code = 82291621) NO GROWTH AFTER 48 HOURS [facility] CenterCapillary blood glucose measurement by glucometer (mass/volume)2020-06-10 15:01:00* Test Item Value Reference Range Interpretation Comments Bedside Glucose (test code = 93406-5) 142 70-120 Meter ID: [id number] [facility] Medical CenterBlood leukocytes automated count (number/volume)2020-06-10 04:15:00* Test Item Value Reference Range Interpretation Comments White Blood Count (test code = 6690-2) 5.32 4.8-10.8 [facility] erythrocytes automated count (number/volume)2020-06-10 04:15:00* Test Item Value Reference Range Interpretation Comments Red Blood Count (test code = 789-8) 2.94 3.6-5.1 [facility] CenterBlood hemoglobin measurement (moles/volume)2020-06-10 04:15:00* Test Item Value Reference Range Interpretation Comments Hemoglobin (test code = 71439-2) 9.3 12.0-16.0 [facility] CenterAutomated blood hematocrit (volume fraction)2020-06-10 04:15:00* Test Item Value Reference Range Interpretation Comments Hematocrit (test code = 4544-3) 30.3 34.2-44.1 [facility] CenterAutomated erythrocyte mean corpuscular ubbzxa6403-26-94 04:15:00* Test Item Value Reference Range Interpretation Comments Mean Corpuscular Volume (test code = 787-2) 103.1 81-99 [facility] CenterAutomated erythrocyte mean corpuscular hemoglobin (mass per erythrocyte)2020-06-10 04:15:00* Test Item Value Reference Range Interpretation Comments Mean Corpuscular Hemoglobin (test code = 785-6) 31.6 28-32 [facility] CenterAutomated erythrocyte mean corpuscular hemoglobin concentration measurement (mass/volume)2020-06-10 04:15:00* Test Item Value Reference Range Interpretation Comments Mean Corpuscular Hemoglobin Concent (test code = 786-4) 30.7 31-35 [facility] CenterRDW EaeNz-Pzm6927-07-24 04:15:00* Test Item Value Reference Range Interpretation Comments Red Cell Distribution Width (test code = 59395-3) 20.4 11.7 -14.4 [facility] CenterAutomated blood platelet count (count/volume)2020-06-10 04:15:00* Test Item Value Reference Range Interpretation Comments Platelet Count (test code = 777-3) 111 140-360 [facility] CenterAutomated blood segmented neutrophil count as percentage of total hhhthvqkki9495-81-32 04:15:00* Test Item Value Reference Range Interpretation Comments Neutrophils (%) (Auto) (test code = 47424-5) 57.0 38.7-80.0 [facility] CenterAutomated blood lymphocyte count as percentage ot total pscomasufc2668-15-36 04:15:00* Test Item Value Reference Range Interpretation Comments Lymphocytes (%) (Auto) (test code = 736-9) 22.9 18.0-39.1 [facility] CenterAutomated blood monocyte count as percentage of total gaemtxjrrf7072-66-84 04:15:00* Test Item Value Reference Range Interpretation Comments Monocytes (%) (Auto) (test code = 5905-5) 13.0 4.4-11.3 [facility] CenterAutomated blood eosinophil count as percentage of total uslzcdrnaj2916-58-01 04:15:00* Test Item Value Reference Range Interpretation Comments Eosinophils (%) (Auto) (test code = 713-8) 5.6 0.0-6.0 [facility] CenterAutomated blood basophil count as percentage of total dtlklbetwr4248-83-23 04:15:00* Test Item Value Reference Range Interpretation Comments Basophils (%) (Auto) (test code = 706-2) 0.9 0.0-1.0 [facility] CenterFluoroscopic procedure less than one hour ybxnakuh9176-90-52 04:15:00* Test Item Value Reference Range Interpretation Comments IM GRANULOCYTES % (test code = IM GRANULOCYTES %) 0.6 0.0- 1.0 [facility] CenterAutomated blood neutrophil count 2020-06-10 04:15:00* Test Item Value Reference Range Interpretation Comments Neutrophils # (Auto) (test code = 751-8) 3.0 2.1-6.9 [facility] CenterBlood lymphocytes count (number/volume) 2020-06-10 04:15:00* Test Item Value Reference Range Interpretation Comments Lymphocytes # (Auto) (test code = 81691-5) 1.2 1.0-3.2 [facility] CenterBlood monocytes automated count (number/volume)2020-06-10 04:15:00* Test Item Value Reference Range Interpretation Comments Monocytes # (Auto) (test code = 742-7) 0.7 0.2-0.8 [facility] CenterAutomated blood eosinophil count 2020-06-10 04:15:00* Test Item Value Reference Range Interpretation Comments Eosinophils # (Auto) (test code = 711-2) 0.3 0.0-0.4 [facility] CenterAutomated blood basophil count (count/volume)2020-06-10 04:15:00* Test Item Value Reference Range Interpretation Comments Basophils # (Auto) (test code = 704-7) 0.1 0.0-0.1 [facility] CenterFluoroscopic procedure less than one hour xkirvqhg6592-78-25 04:15:00* Test Item Value Reference Range Interpretation Comments Absolute Immature Granulocyte (auto (lyssa t code = Absolute Immature Granulocyte (auto) 0.03 0-0.1 [facility] Hospitalerum [facility] plasma sodium measurement (moles/volume)2020-06-10 04:15:00* Test Item Value Reference Range Interpretation Comments Sodium Level (test code = 2951-2) 142 136-145 [facility] Hospitalerum or plasma potassium measurement (moles/volume)2020-06-10 04:15:00* Test Item Value Reference Range Interpretation Comments Potassium Level (test code = 2823-3) 3.8 3.5-5.1 [facility] Hospitalerum or plasma chloride measurement (moles/volume)2020-06-10 04:15:00* Test Item Value Reference Range Interpretation Comments Chloride Level (test code = 2075-0) 110 98-107 [facility] Hospitalerum or plasma carbon dioxide, total measurement (moles/volume)2020-06-10 04:15:00* Test Item Value Reference Range Interpretation Comments Carbon Dioxide Level (test code = 2028-9) 24 22-29 [facility] Hospitalerum or plasma anion ezf3403-89-25 04:15:00* Test Item Value Reference Range Interpretation Comments Anion Gap (test code = 35512-1) 11.8 8-16 [facility] Hospitalerum or plasma urea nitrogen measurement (mass/volume)2020-06-10 04:15:00* Test Item Value Reference Range Interpretation Comments Blood Urea Nitrogen (test code = 3094-0) 14 7-26 [facility] Hospitalerum or plasma creatinine measurement (mass/volume)2020-06-10 04:15:00* Test Item Value Reference Range Interpretation Comments Creatinine (test code = 2160-0) 0.95 0.57-1.11 [facility] Hospitalerum or plasma urea nitrogen/creatinine mass otlwk6574-20-72 04:15:00* Test Item Value Reference Range Interpretation Comments BUN/Creatinine Ratio (test code = 3097-3) 15 6-25 [facility] CenterEstimated glomerular filtration rate (GFR) rbrkqigtlolag0335-82-13 04:15:00* Test Item Value Reference Range Interpretation Comments Estimat Glomerular Filtration Rate (test code = 301862443) 57 >60 Ranges were taken from the National Kidney Disease Education Program and the [facility] literature.Reference ranges:60 or greater: Oxhust49-26 ( for 3 consecutive months): Chronic kidney disease 15 or less: Kidney failureP[facility] Medical CenterGlucose cdwyxiaunuo5527-92-71 04:15:00* Test Item Value Reference Range Interpretation Comments Glucose Level (test code = IPM9108) 122 74-118 [facility] Hospitalerum or plasma calcium measurement (mass/volume)2020-06-10 04:15:00* Test Item Value Reference Range Interpretation Comments Calcium Level (test code = 10108-9) 8.3 8.4-10.2 [facility] Hospitalerum or plasma total bilirubin measurement (mass/volume)2020-06-10 04:15:00* Test Item Value Reference Range Interpretation Comments Total Bilirubin (test code = 1975-2) 1.2 0.2-1.2 [facility] CenterFluoroscopic procedure less than one hour jdadbkip2124-46-29 04:15:00* Test Item Value Reference Range Interpretation Comments Aspartate Amino Transf (AST/SGOT) (test code = Aspartate Amino Transf (AST/SGOT)) 28 5-34 [facility] Hospitalerum or plasma alanine aminotransferase measurement (enzymatic activity/volume)2020-06-10 04:15:00* Test Item Value Reference Range Interpretation Comments Alanine Aminotransferase (ALT/SGPT) (test code = 1742-6) 14 0-55 [facility] Hospitalerum or plasma protein measurement (mass/volume)2020-06-10 04:15:00* Test Item Value Reference Range Interpretation Comments Total Protein (test code = 2885-2) 5.6 6.5-8.1 [facility] Hospitalerum or plasma albumin measurement (mass/volume)2020-06-10 04:15:00* Test Item Value Reference Range Interpretation Comments Albumin (test code = 1751-7) 2.6 3.5-5.0 [facility] CenterPlasma globulin measurement (mass/volume) 2020-06-10 04:15:00* Test Item Value Reference Range Interpretation Comments Globulin (test code = 33463-7) 3.0 2.3-3.5 [facility] Hospitalerum or plasma albumin/globulin mass smzzy2294-72-12 04:15:00* Test Item Value Reference Range Interpretation Comments Albumin/Globulin Ratio (test code = 1759-0) 0.9 0.8-2.0 [facility] Hospitalerum or plasma alkaline phosphatase measurement (enzymatic activity/volume)2020-06-10 04:15:00* Test Item Value Reference Range Interpretation Comments Alkaline Phosphatase (test code = 6768-6) 92 40-150 [facility] CenterPhosphorus ylgfjrlppeu8463-21-48 06:15:00 * Test Item Value Reference Range Interpretation Comments Phosphorus Level (test code = AXM9165) 2.7 2.3-4.7 [facility] Hospitalerum or plasma magnesium measurement (mass/volume)2020-06-07 06:15:00* Test Item Value Reference Range Interpretation Comments Magnesium Level (test code = 39662-3) 1.6 1.3-2.1 [facility] HospitalMALL BOWEL GSRIZL9739-45-65 16:17:00 [facility] [address] [address] Patient Name: AMAURY CONTE MR #: [id number] : 1945 Age/Sex: 74/F Req #: [id number] Adm Physician: HUE PETERSON MD Ordered by: GUILLERMO OLSON MD Report #: [id number] Location: MED/SURG3 Room/Bed: [facility] Procedure: [id number] DX/SMALL BETY L SERIES Exam Date: 06/06/20 Exam Time: 1030 REPORT STATUS: Signed SMALL BOWEL FOLLO W THROUGH HISTORY: 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 Preliminary image was obtained before administration of contrast and serial overhead images were obtained after administration of oral barium. Fluoroscopy was performed and spot images were obtained. 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 STOMACH: Normally di stensible and demonstrates normal contours and mucosal pattern. DUODENUM : Bulb and sweep are normal. Duodenal-jejunal junction is in the normal expected position. Small bowel loops are normal in caliber and distribut ion. There is no evidence of fistula, mucosal changes, stricture or dilation . The transit time was within normal limits with proximal colon opacification at 2 hours. Normal gastric transit time. Fluoroscopy Time: 1 minute Mul tiple spot images were obtained. IMPRESSION: The stomach, duodenum, s mall bowel loops and terminal ileum are unremarkable. Mild thickening of the p roximal ascending colon is noted which could relate to peristalsis versus infe ction. Correlate with most recent colonoscopy. Signed by: Sofi Schneider on 06/06/2020 4:22 PM Dictated By: QUINTEN DANIELS MD Electronically Sign ed By: QUINTEN DANIELS MD on 06/06/20 1622 Transcribed By: JUAN on 06/06/20 16 22 COPY TO: GUILLERMO OLSON MD Urine color determination 2020-06-06 01:20:00* Test Item Value Reference Range Interpretation Comments Urine Color (test code = 5778-6) YELLOW YELLOW [facility] CenterUrine gkxbjgp1069-54-41 01:20:00* Test Item Value Reference Range Interpretation Comments Urine Clarity (test code = 07003-4) CLEAR CLEAR [facility] Hospitalpecific gravity of Urine by Test strip 2020-06-06 01:20:00* Test Item Value Reference Range Interpretation Comments Urine Specific [place] (test code = 5811-5) 1.020 1.010-1.02 5 [facility] CenterUrine pH measurement by automated test ygjyw3977-88-05 01:20:00* Test Item Value Reference Range Interpretation Comments Urine pH (test code = 20569-2) 5.5 5-7 [facility] CenterUrine leukocyte esterase detection by hampfbeg9159-92-24 01:20:00* Test Item Value Reference Range Interpretation Comments Urine Leukocyte Esterase (test code = 5799-2) MODERATE NEGATIVE [facility] CenterUrine nitrite ajzxmscra6001-81-82 01:20:00* Test Item Value Reference Range Interpretation Comments Urine Nitrite (test code = 96972-9) NEGATIVE NEGATIVE [facility] CenterUrine protein measurement by test strip (mass/volume)2020-06-06 01:20:00* Test Item Value Reference Range Interpretation Comments Urine Protein (test code = 5804-0) NEGATIVE NEGATIVE [facility] CenterUrine glucose xsmxmfhcx5929-22-75 01:20:00* Test Item Value Reference Range Interpretation Comments Urine Glucose (UA) (test code = 2349-9) NEGATIVE NEGATIVE [facility] CenterUrine ketones detection by automated test iukpe5590-06-19 01:20:00* Test Item Value Reference Range Interpretation Comments Urine Ketones (test code = 54001-2) NEGATIVE NEGATIVE [facility] CenterUrine urobilinogen measurement by test strip (mass/volume)2020-06-06 01:20:00* Test Item Value Reference Range Interpretation Comments Urine Urobilinogen (test code = 77492-3) 4.0 0.2-1 [facility] CenterUrine total bilirubin measurement (mass/volume)2020-06-06 01:20:00* Test Item Value Reference Range Interpretation Comments Urine Bilirubin (test code = 1978-6) NEGATIVE NEGATIVE [facility] CenterUrine erythrocytes bgglsvgif8503-28-98 01:20:00* Test Item Value Reference Range Interpretation Comments Urine Blood (test code = 83490-6) MODERATE NEGATIVE [facility] CenterAutomated urine sediment leukocyte count by microscopy (number/high power field)2020-06-06 01:20:00* Test Item Value Reference Range Interpretation Comments Urine WBC (test code = 5821-4) 21-50 0-5 [facility] CenterErythrocytes detection in urine sediment by light bdzqayibve0817-70-07 01:20:00* Test Item Value Reference Range Interpretation Comments Urine RBC (test code = 74774-2) 6-10 0-5 [facility] CenterBacteria detection in urine sediment by light gpkhbhmxqr6768-36-02 01:20:00* Test Item Value Reference Range Interpretation Comments Urine Bacteria (test code = 59789-6) MODERATE NONE [facility] CenterEpithelial cells detection in urine sediment by light sszmfmhixu2192-13-06 01:20:00* Test Item Value Reference Range Interpretation Comments Urine Epithelial Cells (test code = 09233-0) MODERATE NONE [facility] CenterBacterial urine toarnfl3011-55-81 01:20:00* Test Item Value Reference Range Interpretation Comments Urine Culture (test code = 630-4) ENTEROCOCCUS FAECALIS [facility] CenterBacterial urine pbeneja6782-41-86 01:20:00* Test Item Value Reference Range Interpretation Comments Urine Culture (test code = 630-4) ENTEROCOCCUS FAECALIS [facility] Hospitalerum tissue transglutaminase IgA antibody ncfgosqkz7748-81-49 13:26:00* Test Item Value Reference Range Interpretation Comments Tissue Transglutaminase IgA Ab (test code = 25968-5) <2 0 -3 Negative 0 - 3 Weak Positive 4 - 10 Positive >10 Tissue Transglutaminase (tTG) has been identified as the endomysial antigen. Studies have demonstr- ated that endomysial IgA antibodies have over 99% specif icity for gluten sensitive enteropathy.[facility] Serum or plasma IgA measurement (mass/volume)2020-06-05 13:26:00* Test Item Value Reference Range Interpretation Comments Immunoglobulin A (test code = 2458-8) 350 90-912 Performed at: - Lab[address] [id number] Director Of Solutions Architecture: Harish Henriquez MD, Phone: [phone] at: [facility] [id number] Director: Skip Garner MD, Ph one: [phone] Children's Hospitalerum endomysium IgA antibody relwwsmye7295-27-63 13:26:00* Test Item Value Reference Range Interpretation Comments Endomysial IgA Antibody (test code = 61871-6) Negative Negative [facility] Hospitalerum tissue transglutaminase IgA antibody oaccbisav5481-52-14 13:26:00* Test Item Value Reference Range Interpretation Comments Tissue Transglutaminase IgA Ab (test code = 42350-6) <2 0 -3 Negative 0 - 3 Weak Positive 4 - 10 Positive >10 Tissue Transglutaminase (tTG) has been identified as the endomysial antigen. Studies have demonstr- ated that endomysial IgA antibodies have over 99% specif icity for gluten sensitive enteropathy.[facility] Serum or plasma IgA measurement (mass/volume)2020-06-05 13:26:00* Test Item Value Reference Range Interpretation Comments Immunoglobulin A (test code = 2458-8) 263 91-812 Performed at: [facility] [address] [id number] Director Of Solutions Architecture: Harish Henriquez MD, Phone: [phone] at: [email or web address] [facility] [address] [id number] Director: Skip Garner MD, Ph one: [phone] Children's Hospitalerum endomysium IgA antibody nvgyduazd8033-84-63 13:26:00* Test Item Value Reference Range Interpretation Comments Endomysial IgA Antibody (test code = 04391-4) Negative Negative [facility] CenterProthrombin time (PT) in platelet poor plasma by coagulation sopag3400-71-68 05:10:00* Test Item Value Reference Range Interpretation Comments Prothrombin Time (test code = 5902-2) 18.1 11.9-14.5 [facility] CenterINR in Platelet poor plasma by Coagulation eiogu5732-74-23 05:10:00* Test Item Value Reference Range Interpretation Comments Prothromb Time International Ratio (test code = 6301-6) 1.41 Oral Anticoagulant Therapy INR Values:1. Low Intensity Therapy 1.5 - 2.02 . Moderate Intensity Therapy 2.0 - 3.03. High Intensity Therapy(1) 2.5 - 3. 54. High Intensity Therapy(2) 3.0 - 4.05. Panic Value INR > 5.0 [facility] JEXAM5636-94-86 19:38:00 [facility] [address] [address] Patient Name: AMAURY CONTE MR #: [id number] : 1945 Age/Sex: 74/F Req #: [id number] Adm Physician: HUE PETERSON MD Ordered by: GUILLERMO OLSON MD Report #: [id number] Location: MED/SURG3 Room/Bed: [facility] Procedure: [id number] NM/G I BLEED Exam Date: 06/04/20 Exam Time: 1600 REPORT STATUS: Signed Tagged-RBC GI Bleed Study Clinical information: 74-year-old female with coffee-ground stools and anem ia. Discussion: The patient's own red blood cells were labeled with 20 mCi of technetium-99m pertechnetate using the in vitro method (UltraTag). Dynamic images of the abdomen were obtained through 60 minutes. Distribution of tracer activity appears physiologic throughout the abdomen. No abnormal accum ulation of tracer is seen within the gastrointestinal lumen. Impression: No scan evidence of active gastrointestinal bleeding at this time. Si gned by: Dr. Nicole Farah M.D. on 06/04/2020 7:39 PM Dictated By: NICOLE CEDILLO MD 38 Transcribed B y: JUAN on 06/04/201938 COPY TO: GUILLERMO OLSON MD Activated partial thromboplastin time (aPTT) in platelet poor plasma by coagulation assay 2020-06-04 06:10:00* Test Item Value Reference Range Interpretation Comments Activated Partial Thromboplast Time (test code = 49741-3) 38.7 23.8-35.5 [facility] CenterAmmonia Hxv-bKni8821-61-18 06:10:00* Test Item Value Reference Range Interpretation Comments Ammonia (test code = 21581-5) 121 31-123 [facility] Hospitalerum or plasma creatine kinase measurement (enzymatic activity/volume)2020-06-03 06:26:00* Test Item Value Reference Range Interpretation Comments Creatine Kinase (test code = 2157-6) 44 29-168 [facility] Hospitalerum or plasma creatine kinase MB measurement (mass/volume)2020-06-03 06:26:00* Test Item Value Reference Range Interpretation Comments Creatine Kinase MB (test code = 53521-6) 1.50 0-5.0 [facility] CenterTroponin I measurement by highly sensitive enzyme vyjeoncrfwn2219-68-85 06:26:00* Test Item Value Reference Range Interpretation Comments Troponin I (test code = 56721-6) 0.059 0-0.300 [facility] CenterAutomated reticulocyte count as percentage of total gsakxcrhbsnr0440-87-77 20:30:00* Test Item Value Reference Range Interpretation Comments Percent Reticulocyte Count (test code = 61025-7) 4.7 0.8-2 .2 [facility] Hospitalerum or plasma iron measurement (mass/volume)2020-06-02 20:30:00* Test Item Value Reference Range Interpretation Comments Iron Level (test code = 2498-4) 31 50-170 [facility] Hospitalerum or plasma iron binding capacity measurement (mass/volume)2020-06-02 20:30:00* Test Item Value Reference Range Interpretation Comments Total Iron Binding Capacity (test code = 2500-7) 440 261-4 78 [facility] Hospitalerum or plasma iron saturation measurement (mass fraction)2020-06-02 20:30:00* Test Item Value Reference Range Interpretation Comments Percent Iron Saturation (test code = 2502-3) 7 15-50 [facility] [facility] plasma transferrin measurement (mass/volume)2020-06-02 20:30:00* Test Item Value Reference Range Interpretation Comments Transferrin (test code = 3034-6) 314 180-382 [place] [facility] ferritin measurement (mass/volume)2020-06-02 20:30:00* Test Item Value Reference Range Interpretation Comments Ferritin (test code = 2276-4) 11.95 4.63-204.00 [facility] CenterBlood cobalamin (vitamin B12) measurement (mass/volume)2020-06-02 20:30:00* Test Item Value Reference Range Interpretation Comments Vitamin B12 Level (test code = 85207-0) 1051 213816 [place] [facility] folate measurement (mass/volume)2020-06-02 20:30:00* Test Item Value Reference Range Interpretation Comments Folate (test code = 2284-8) >20.0 >3.0 A serum folate concentration of less than 3.1 ng/mL isconsidered to represent cl inical deficiency.Performed at: - [facility] [id number] Director: Skip Garner MD, Phone: [phone] Regional Medical CenterBlood wrcuoyf5392-83-88 20:30:00* Test Item Value Reference Range Interpretation Comments Blood Culture (test code = 57815997) NO GROWTH AFTER 5 DAYS, FINAL REPORT [facility] ferritin measurement (mass/volume)2020-06-02 20:30:00* Test Item Value Reference Range Interpretation Comments Ferritin (test code = 2276-4) 11.95 4.63-204.00 [facility] CenterCT BRAIN RH1622-59-84 15:25:00 [facility] [address] [place] [address] Patient Name: AMAURY CONTE MR #: [id number] : 1945 Age/Sex: 74/F Req #: [id number] Adm Physician: HUE PETERSON MD Ordered by: NEL BONNER MD Report #: [id number] Location: MED/SURG3 Room/Bed: [facility] Procedure: [id number] CT/CT BRAIN WO Exam Date: 06/02/20 Exam Time: 1450 REPORT STATUS: Signed EXAMINATION: Head CT HISTORY: 74-year-old female with weakness, altered mental status COMPARISON: Head CT 04/20/2020 TECHNIQUE: Helical axial images of the head were obtained. Reformatted coronal and sagittal images from the axial data. Dose modulation, iterative reconstruction, and/or weight based adjustment of the mA/kV was uti lized to reduce the radiation dose to as low as reasonably achievable. Image quality: Motion/streaking artifact limits the evaluation of the skull base an d posterior cranial fossa. FINDINGS: Parenchyma: 1. Mild-t o-moderate chronic microvascular ischemic changes, stable compared to head CT of 04/20/2020 2. No mass or hemorrhage. No CT evidence of acute territorial vas cular insult. Extra-axial spaces:No abnormal density. No extra- axial fluid collections Brain volume: Normal for age. Ventricles : No hydrocephalus or displacement. Arteries: No density suggestive of thrombus. Dural sinuses: No abnormal density. Foramen magnum: No mass, Chiari malformation, or basilar invagination. Sella: No obvious m ass. Paranasal/mastoid sinuses: Imaged portions unremarkable. S kull/Scalp: No lytic or blastic lesions. No fractures. IMPRESSION: 1 . No acute intracranial abnormality. 2. Stable mild to moderate chronic micr ovascular ischemic changes compared to head CT of 04/20/2020. Signed by: Dr Marty Marley M.D. on 06/02/2020 3:28 PM Dictated By: SALMA MARLEY MD Melva ctronically Signed By: SALMA MARLEY MD on 06/02/20 1528 Transcribed By: JUAN on 06/02/20 1528 COPY TO: NEL BONNER MD CHEST SINGLE (PORTABLE)2020-06-02 15:22:[address] [place], [place] [address] Patient Name: AMAURY CONTE MR #: [id number] : 1945 Age/Sex: 74/F Req #: [id number] Adm Physician: HUE PETERSON MD Ordered by: NEL BONNER MD Report #: [id number] Location: MED/SURG3 Room/Bed: [facility] Procedure: [id number] DX/CHEST SINGL E (PORTABLE) Exam Date: 06/02/20 Exam Time: 1450 REPORT STATUS: Signed EXAMINATION: CHEST SINGLE (PORTABLE) INDICATION: Altered mental status. COMPAR NATHALY: None FINDINGS: TUBES and LINES: Single lead cardiac p acemaker overlying the left chest wall. LUNGS: Normal lung volumes. Lungs are clear. No consolidations. There is bilateral hilar prominence suggestive of pulmonary vascular congestion. PLEURA: No pleural effusion or pneumoth orax. HEART AND MEDIASTINUM: The cardiomediastinal silhouette is enlarged. Atherosclerotic calcification of the thoracic aortic knob. BONES AND SOF T TISSUES: No acute osseous lesion. Soft tissues are unremarkable. UPPE R ABDOMEN: No free air under the diaphragm. IMPRESSION: Cardiomeg cam with pulmonary vessel congestion. No focal consolidation, pleural effusion or pneumothorax. Signed by: Ayesha Rojas MD on 06/02/2020 3:24 PM Dictated By: AYESHA ROJAS MD 1524 Transcribed By: JUAN on 06/02/20 152 COPY TO: NEL BONNER MD Fluoroscopic procedure less than one hour ofjjktif7105-74-07 15:10:00* Test Item Value Reference Range Interpretation Comments Lactic Acid Level (test code = Lactic Acid Level) 1.4 0.5- 2.0 [facility] CenterBNP Ehu-ySus1629-72-16 15:10:00* Test Item Value Reference Range Interpretation Comments B-Type Natriuretic Peptide (test code = 52670-2) 199.5 0-100 [facility] CenterFluoroscopic procedure less than one hour zzswkhjs6717-01-49 14:40:00* Test Item Value Reference Range Interpretation Comments Coronavirus (PCR) (test code = Coronavirus (PCR)) NOT DETECTED NOTD ETECTED [employer] Aptima SARS-CoV-2 assay is a nucleic amplification test intended for the qualitative detection of RNA from SARS-CoV-2 from nasopharyngeal ([employer]) specimens . It is used under Emergency Use Authorization (EUA) by FDA.A positive result is indicative of the presence of SARS-CoV-2 RNA. Clinical correlation with patient history and other diagnostic information is necessary to determine patient infe ction status.A negative (Not Detected) result does not preclude SARS-CoV-2 infec tion. Clinical Correlation with patient history and other diagnostic information should be used in patient management decisions.Invalid: Unable to generate a va lid result on this specimen. Please submit a new specimen for reprat testing oc clinically indicated.Tesing performed by:[facility] Laboratory [id number] [place] [id number], Behzad Alejandre MD, PhD [facility] CenterBlood platelets count by estimate (number/volume)2020-06-02 14:30:00* Test Item Value Reference Range Interpretation Comments Platelet Estimate (test code = 22907-7) ADEQUATE [facility] CenterPlatelet twrlzxdsev2149-89-77 14:30:00* Test Item Value Reference Range Interpretation Comments Platelet Morphology Comment (test code = 23943-5) NORMAL [facility] CenterBlood hypochromia detection by light qbvhwdbqvn1175-32-73 14:30:00* Test Item Value Reference Range Interpretation Comments Hypochromasia (test code = 728-6) SLIGHT [facility] CenterBlood anisocytosis detection by light qugvrgeqma1037-53-95 14:30:00* Test Item Value Reference Range Interpretation Comments Anisocytosis (test code = 702-1) SLIGHT [place] [facility] thyrotropin measurement by detection limit <= 0.005 miu/l (units/volume)2020-06-02 14:30:00* Test Item Value Reference Range Interpretation Comments Thyroid Stimulating Hormone (TSH) (test code = 93340-7) 2.981 0.350-4.940 [facility] CenterBlood hypochromia detection by light snhktoxgkg2270-57-81 14:30:00* Test Item Value Reference Range Interpretation Comments Hypochromasia (test code = 728-6) SLIGHT [place] [facility] Hospitaler[facility] plasma thyrotropin measurement by detection limit <= 0.005 miu/l (units/volume)2020-06-02 14:30:00* Test Item Value Reference Range Interpretation Comments Thyroid Stimulating Hormone (TSH) (test code = 08099-3) 2.981 0.350-4.940 [facility] CenterCapillary blood glucose measurement by glucometer (mass/volume)2020-04-26 15:13:00* Test Item Value Reference Range Interpretation Comments Bedside Glucose (test code = 91785-9) 132 70-120 Meter ID: [id number] Regional Medical CenterBlood leukocytes automated count (number/volume)2020-04-26 04:55:00* Test Item Value Reference Range Interpretation Comments White Blood Count (test code = 6690-2) 3.85 4.8-10.8 [facility] CenterBlcook hospital erythrocytes automated count (number/volume)2020-04-26 04:55:00* Test Item Value Reference Range Interpretation Comments Red Blood Count (test code = 789-8) 2.59 3.6-5.1 [facility] CenterBlood hemoglobin measurement (moles/volume)2020-04-26 04:55:00* Test Item Value Reference Range Interpretation Comments Hemoglobin (test code = 26212-6) 8.2 12.0-16.0 [facility] CenterAutomated blood hematocrit (volume fraction)2020-04-26 04:55:00* Test Item Value Reference Range Interpretation Comments Hematocrit (test code = 4544-3) 27.3 34.2-44.1 [facility] CenterAutomated erythrocyte mean corpuscular agrlev2764-64-78 04:55:00* Test Item Value Reference Range Interpretation Comments Mean Corpuscular Volume (test code = 787-2) 105.4 81-99 [facility] CenterAutomated erythrocyte mean corpuscular hemoglobin (mass per erythrocyte)2020-04-26 04:55:00* Test Item Value Reference Range Interpretation Comments Mean Corpuscular Hemoglobin (test code = 785-6) 31.7 28-32 [facility] CenterAutomated erythrocyte mean corpuscular hemoglobin concentration measurement (mass/volume)2020-04-26 04:55:00* Test Item Value Reference Range Interpretation Comments Mean Corpuscular Hemoglobin Concent (test code = 786-4) 30.0 31-35 [facility] CenterRDW OnpEd-Lea3355-65-10 04:55:00* Test Item Value Reference Range Interpretation Comments Red Cell Distribution Width (test code = 58126-3) 21.0 11.7 -14.4 [facility] CenterAutomated blood platelet count (count/volume)2020-04-26 04:55:00* Test Item Value Reference Range Interpretation Comments Platelet Count (test code = 777-3) 120 140-360 [facility] CenterAutomated blood segmented neutrophil count as percentage of total wayztfgrub6573-55-55 04:55:00* Test Item Value Reference Range Interpretation Comments Neutrophils (%) (Auto) (test code = 23399-5) 54.5 38.7-80.0 [facility] CenterAutomated blood lymphocyte count as percentage ot total ypidosvlrp1497-76-42 04:55:00* Test Item Value Reference Range Interpretation Comments Lymphocytes (%) (Auto) (test code = 736-9) 24.2 18.0-39.1 [facility] CenterAutomated blood monocyte count as percentage of total bldqzxeviv0517-31-67 04:55:00* Test Item Value Reference Range Interpretation Comments Monocytes (%) (Auto) (test code = 5905-5) 13.8 4.4-11.3 [facility] CenterAutomated blood eosinophil count as percentage of total qxdjlxojqw2191-74-68 04:55:00* Test Item Value Reference Range Interpretation Comments Eosinophils (%) (Auto) (test code = 713-8) 5.7 0.0-6.0 [facility] CenterAutomated blood basophil count as percentage of total ubpvwllhav5317-27-05 04:55:00* Test Item Value Reference Range Interpretation Comments Basophils (%) (Auto) (test code = 706-2) 0.8 0.0-1.0 [facility] CenterFluoroscopic procedure less than one hour jtmwjper1089-13-76 04:55:00* Test Item Value Reference Range Interpretation Comments IM GRANULOCYTES % (test code = IM GRANULOCYTES %) 1.0 0.0- 1.0 [facility] CenterAutcarolinaeast medical centered blood neutrophil count 2020-04-26 04:55:00* Test Item Value Reference Range Interpretation Comments Neutrophils # (Auto) (test code = 751-8) 2.1 2.1-6.9 [facility] CenterBlood lymphocytes count (number/volume) 2020-04-26 04:55:00* Test Item Value Reference Range Interpretation Comments Lymphocytes # (Auto) (test code = 46200-4) 0.9 1.0-3.2 [facility] CenterBlcook hospital monocytes automated count (number/volume)2020-04-26 04:55:00* Test Item Value Reference Range Interpretation Comments Monocytes # (Auto) (test code = 742-7) 0.5 0.2-0.8 [facility] CenterAutomated blood eosinophil count 2020-04-26 04:55:00* Test Item Value Reference Range Interpretation Comments Eosinophils # (Auto) (test code = 711-2) 0.2 0.0-0.4 [facility] CenterAutomated blood basophil count (count/volume)2020-04-26 04:55:00* Test Item Value Reference Range Interpretation Comments Basophils # (Auto) (test code = 704-7) 0.0 0.0-0.1 [facility] CenterFluoroscopic procedure less than one hour ktioqebr5793-06-89 04:55:00* Test Item Value Reference Range Interpretation Comments Absolute Immature Granulocyte (auto (lyssa t code = Absolute Immature Granulocyte (auto) 0.04 0-0.1 [facility] CenterBlcook hospital platelets count by estimate (number/volume)2020-04-26 04:55:00* Test Item Value Reference Range Interpretation Comments Platelet Estimate (test code = 14718-0) SLIGHTLY DECREASED [facility] CenterPlatelet bljymyjyrg9595-27-62 04:55:00* Test Item Value Reference Range Interpretation Comments Platelet Morphology Comment (test code = 75900-1) NORMAL [facility] polychromasia detection by light kmovpzgmzd9463-36-29 04:55:00* Test Item Value Reference Range Interpretation Comments Polychromasia (test code = 56783-5) FEW [facility] anisocytosis detection by light nkgdxoktaf9639-09-87 04:55:00* Test Item Value Reference Range Interpretation Comments Anisocytosis (test code = 702-1) MODERATE [facility] macrocytes detection by light uslfwlzmqi0066-24-09 04:55:00* Test Item Value Reference Range Interpretation Comments Macrocytosis (test code = 738-5) MODERATE [facility] CenterRBC rdrcsapymk0834-48-48 04:55:00* Test Item Value Reference Range Interpretation Comments Red Cell Morphology Comment (test code = 6742-1) ABNORMAL [place] [facility] Hospitaler[facility] plasma sodium measurement (moles/volume)2020-04-26 04:55:00* Test Item Value Reference Range Interpretation Comments Sodium Level (test code = 2951-2) 142 136-145 [facility] Hospitaler[facility] or plasma potassium measurement (moles/volume)2020-04-26 04:55:00* Test Item Value Reference Range Interpretation Comments Potassium Level (test code = 2823-3) 5.0 3.5-5.1 Results called to MARIEL HASSAN RN at 0644 on 04/26/20 by Berta Lambert. RB OK.[facility] Hospitaler[facility] or plasma chloride measurement (moles/volume)2020-04-26 04:55:00* Test Item Value Reference Range Interpretation Comments Chloride Level (test code = 2075-0) 113 98-107 [facility] Hospitaler[facility] or plasma carbon dioxide, total measurement (moles/volume)2020-04-26 04:55:00* Test Item Value Reference Range Interpretation Comments Carbon Dioxide Level (test code = 2028-9) 26 22-29 [facility] Hospitalerum or plasma anion pfb1962-99-08 04:55:00* Test Item Value Reference Range Interpretation Comments Anion Gap (test code = 85484-6) 8.0 8-16 [facility]er[facility] or plasma urea nitrogen measurement (mass/volume)2020-04-26 04:55:00* Test Item Value Reference Range Interpretation Comments Blood Urea Nitrogen (test code = 3094-0) 27 7-26 [facility] Hospitaler[facility] or plasma creatinine measurement (mass/volume)2020-04-26 04:55:00* Test Item Value Reference Range Interpretation Comments Creatinine (test code = 2160-0) 1.23 0.57-1.11 [place] [facility] Hospitalerum or plasma urea nitrogen/creatinine mass ifmru7170-97-87 04:55:00* Test Item Value Reference Range Interpretation Comments BUN/Creatinine Ratio (test code = 3097-3) 22 6-25 [facility] CenterEstimated glomerular filtration rate (GFR) mljxotuvtabve9539-99-25 04:55:00* Test Item Value Reference Range Interpretation Comments Estimat Glomerular Filtration Rate (test code = 175127773) 43 >60 Ranges were taken from the National Kidney Disease Education Program and the [facility] Kid[facility] Foundation literature.Reference ranges:60 or greater: Pnmcce63-99 ( for 3 consecutive months): Chronic kidney disease 15 or less: Kidney failurePampa Regional Medical CenterGlucose wralwjnvhni0994-22-95 04:55:00* Test Item Value Reference Range Interpretation Comments Glucose Level (test code = HQG0765) 106 74-118 [place] [facility] Hospitalerum or plasma calcium measurement (mass/volume)2020-04-26 04:55:00* Test Item Value Reference Range Interpretation Comments Calcium Level (test code = 84066-4) 8.3 8.4-10.2 [facility] CenterBlood polychromasia detection by light ekeabsuulv2252-91-09 04:55:00* Test Item Value Reference Range Interpretation Comments Polychromasia (test code = 43482-0) FEW [facility] CenterBlood macrocytes detection by light duenuuacww2177-96-85 04:55:00* Test Item Value Reference Range Interpretation Comments Macrocytosis (test code = 738-5) MODERATE [facility] CenterRBC mzbetjqgtu1434-80-92 04:55:00* Test Item Value Reference Range Interpretation Comments Red Cell Morphology Comment (test code = 6742-1) ABNORMAL [facility] CenterBlood polychromasia detection by light nprnstocba0590-52-31 04:55:00* Test Item Value Reference Range Interpretation Comments Polychromasia (test code = 63346-6) FEW [facility] CenterUrine color rkugsfwhwpydm5732-44-25 01:50:00* Test Item Value Reference Range Interpretation Comments Urine Color (test code = 5778-6) YELLOW YELLOW [facility] CenterUrine gbiebkv3487-06-71 01:50:00* Test Item Value Reference Range Interpretation Comments Urine Clarity (test code = 58927-8) SL CLOUDY CLEAR [place] [facility] Hospitalpecific gravity of Urine by Test strip 2020-04-26 01:50:00* Test Item Value Reference Range Interpretation Comments Urine Specific [place] (test code = 5811-5) 1.025 1.010-1.02 5 [facility] CenterUrine pH measurement by automated test tqneg4755-87-24 01:50:00* Test Item Value Reference Range Interpretation Comments Urine pH (test code = 93754-1) 6 5-7 [facility] CenterUrine leukocyte esterase detection by obkcwmaj5610-89-55 01:50:00* Test Item Value Reference Range Interpretation Comments Urine Leukocyte Esterase (test code = 5799-2) NEGATIVE NEGATIVE [facility] CenterUrine nitrite qslgiyrtg5478-31-66 01:50:00* Test Item Value Reference Range Interpretation Comments Urine Nitrite (test code = 45060-2) NEGATIVE NEGATIVE [facility] CenterUrine protein measurement by test strip (mass/volume)2020-04-26 01:50:00* Test Item Value Reference Range Interpretation Comments Urine Protein (test code = 5804-0) NEGATIVE NEGATIVE [facility] CenterUrine glucose zzqogzkrv6143-10-64 01:50:00* Test Item Value Reference Range Interpretation Comments Urine Glucose (UA) (test code = 2349-9) NEGATIVE NEGATIVE [facility] CenterUrine ketones detection by automated test rrdxf4355-35-77 01:50:00* Test Item Value Reference Range Interpretation Comments Urine Ketones (test code = 41241-6) NEGATIVE NEGATIVE [facility] CenterUrine urobilinogen measurement by test strip (mass/volume)2020-04-26 01:50:00* Test Item Value Reference Range Interpretation Comments Urine Urobilinogen (test code = 74709-6) 1 0.2-1 [facility] CenterUrine total bilirubin measurement (mass/volume)2020-04-26 01:50:00* Test Item Value Reference Range Interpretation Comments Urine Bilirubin (test code = 1978-6) NEGATIVE NEGATIVE [facility] CenterUrine erythrocytes nbklpzxxa2990-49-27 01:50:00* Test Item Value Reference Range Interpretation Comments Urine Blood (test code = 70211-0) NEGATIVE NEGATIVE [facility] CenterAutomated urine sediment leukocyte count by microscopy (number/high power field)2020-04-26 01:50:00* Test Item Value Reference Range Interpretation Comments Urine WBC (test code = 5821-4) 21-50 0-5 [facility] CenterErythrocytes detection in urine sediment by light isiwlnrmwh0124-76-86 01:50:00* Test Item Value Reference Range Interpretation Comments Urine RBC (test code = 62860-6) >50 0-5 [facility] CenterBacteria detection in urine sediment by light ewnhgculql1324-79-01 01:50:00* Test Item Value Reference Range Interpretation Comments Urine Bacteria (test code = 98589-3) MODERATE NONE [facility] CenterEpithelial cells detection in urine sediment by light aomfkxgzgx2826-87-97 01:50:00* Test Item Value Reference Range Interpretation Comments Urine Epithelial Cells (test code = 27199-7) FEW NONE [facility] CenterHyaline casts detection in urine sediment by light tpzzbufkds5759-68-16 01:50:00* Test Item Value Reference Range Interpretation Comments Urine Hyaline Casts (test code = 00266-0) 2-5 0-1 [facility] CenterHyaline casts detection in urine sediment by light nkhwpbwqau8572-25-59 01:50:00* Test Item Value Reference Range Interpretation Comments Urine Hyaline Casts (test code = 22699-7) 2-5 0-1 [facility] CenterHyaline casts detection in urine sediment by light meqancttpw7658-93-08 01:50:00* Test Item Value Reference Range Interpretation Comments Urine Hyaline Casts (test code = 24378-8) 2-5 0-1 [place] [facility]er[facility] or plasma folate measurement (mass/volume)2020-04-25 04:50:00* Test Item Value Reference Range Interpretation Comments Folate (test code = 2284-8) 9.5 >3.0 A serum folate concentration of less than 3.1 ng/mL isconsidered to represent cl inical deficiency.Performed at: HD - [facility] [address] [id number] Director: Skip Garner MD, Phone: [phone] Regional Medical CenterAutomated reticulocyte count as percentage of total bshswjirgqgt6151-73-49 05:20:00* Test Item Value Reference Range Interpretation Comments Percent Reticulocyte Count (test code = 72868-6) 4.6 0.8-2 .2 [facility]er[facility] plasma iron measurement (mass/volume)2020-04-24 05:20:00* Test Item Value Reference Range Interpretation Comments Iron Level (test code = 2498-4) 82 50-170 [facility] Hospitaler[facility] or plasma iron binding capacity measurement (mass/volume)2020-04-24 05:20:00* Test Item Value Reference Range Interpretation Comments Total Iron Binding Capacity (test code = 2500-7) 374 261-4 78 [facility] Hospitaler[facility] or plasma iron saturation measurement (mass fraction)2020-04-24 05:20:00* Test Item Value Reference Range Interpretation Comments Percent Iron Saturation (test code = 2502-3) 22 15-50 [facility] Hospitaler[facility] or plasma transferrin measurement (mass/volume)2020-04-24 05:20:00* Test Item Value Reference Range Interpretation Comments Transferrin (test code = 3034-6) 267 180-382 [facility] Hospitalerum or plasma ferritin measurement (mass/volume)2020-04-24 05:20:00* Test Item Value Reference Range Interpretation Comments Ferritin (test code = 2276-4) 62.95 4.63-204.00 [facility] CenterBlood cobalamin (vitamin B12) measurement (mass/volume)2020-04-24 05:20:00* Test Item Value Reference Range Interpretation Comments Vitamin B12 Level (test code = 36104-9) > 2000 213-816 [facility] CenterProthrombin time (PT) in platelet poor plasma by coagulation xuarl5399-70-25 04:45:00* Test Item Value Reference Range Interpretation Comments Prothrombin Time (test code = 5902-2) 17.6 11.9-14.5 [facility] CenterINR in Platelet poor plasma by Coagulation niixk9920-28-61 04:45:00* Test Item Value Reference Range Interpretation Comments Prothromb Time International Ratio (test code = 6301-6) 1.35 Oral Anticoagulant Therapy INR Values:1. Low Intensity Therapy 1.5 - 2.02 . Moderate Intensity Therapy 2.0 - 3.03. High Intensity Therapy(1) 2.5 - 3. 54. High Intensity Therapy(2) 3.0 - 4.05. Panic Value INR > 5.0 [place] [facility] Hospitaler[facility] or plasma total bilirubin measurement (mass/volume)2020-04-23 04:45:00* Test Item Value Reference Range Interpretation Comments Total Bilirubin (test code = 1975-2) 1.1 0.2-1.2 [facility] CenterFluoroscopic procedure less than one hour ttysuamv3196-80-96 04:45:00* Test Item Value Reference Range Interpretation Comments Aspartate Amino Transf (AST/SGOT) (test code = Aspartate Amino Transf (AST/SGOT)) 39 5-34 [place] [facility] Hospitalerum or plasma alanine aminotransferase measurement (enzymatic activity/volume)2020-04-23 04:45:00* Test Item Value Reference Range Interpretation Comments Alanine Aminotransferase (ALT/SGPT) (test code = 1742-6) 20 0-55 [facility] [facility] or plasma protein measurement (mass/volume)2020-04-23 04:45:00* Test Item Value Reference Range Interpretation Comments Total Protein (test code = 2885-2) 5.9 6.5-8.1 [place] [facility] albumin [facility] (mass/volume)2020-04-23 04:45:00* Test Item Value Reference Range Interpretation Comments Albumin (test code = 1751-7) 2.4 3.5-5.0 [facility] Center[facility] globulin measurement (mass/volume) 2020-04-23 04:45:00* Test Item Value Reference Range Interpretation Comments Globulin (test code = 19887-1) 3.5 2.3-3.5 [place] [facility] albumin/globulin mass bkyao0257-05-93 04:45:00* Test Item Value Reference Range Interpretation Comments Albumin/Globulin Ratio (test code = 1759-0) 0.7 0.8-2.0 [place] [facility] or plasma alkaline phosphatase measurement (enzymatic activity/volume)2020-04-23 04:45:00* Test Item Value Reference Range Interpretation Comments Alkaline Phosphatase (test code = 6768-6) 131 40-150 [facility] CenterG I VKIMF2453-45-27 13:53:00 [facility] [address] [address] Patient Name: AMAURY CONTE MR #: [id number] : 1945 Age/Sex: 74/F Req #: [id number] Adm Physician: HUE PETERSON MD Ordered by: GUILLERMO OLSON MD Report #: [id number] Location: MED/SURG2 Room/Bed: [facility] Procedure: [id number] NM/G I BLEED Exam Date: 04/22/20 Exam Time: 0930 REPORT STATUS: Signed Tagged-RBC GI Bleed Study Clinical information: 74-year-old female with rectal bleeding. Discuss ion: The patient's own red blood cells were labeled with 27 mCi of technetium- 99m pertechnetate using the in vitro method (Coshared). Dynamic images of the abdomen were obtained through 60 minutes. Distribution of tracer activity appears physiologic throughout the abdomen. No abnormal accumulation of trace r is seen within the gastrointestinal lumen. Impression: No scan evid ence of active gastrointestinal bleeding at this time. Signed by: Dr. Altaf Farah M.D. on 04/22/2020 1:58 PM Dictated By: NICOLE FARAH MD [facility] Signed By: NICOLE FARAH MD on 04/22/20 1358 Transcribed By: JUAN on 04/06 1358 COPY TO: GUILLERMO OLSON MD Activated partial thromboplastin time (aPTT) in platelet poor plasma by coagulation assay 2020-04-22 04:50:00* Test Item Value Reference Range Interpretation Comments Activated Partial Thromboplast Time (test code = 05000-3) 38.3 23.8-35.5 [facility]-eGjs5631-63-46 04:50:00* Test Item Value Reference Range Interpretation Comments Ammonia (test code = 52706-3) 74 31-123 [place] [facility] creatine kinase measurement (enzymatic activity/volume)2020-04-21 23:05:00* Test Item Value Reference Range Interpretation Comments Creatine Kinase (test code = 2157-6) 67 29-168 [place] [facility] or plasma creatine kinase MB measurement (mass/volume)2020-04-21 23:05:00* Test Item Value Reference Range Interpretation Comments Creatine Kinase MB (test code = 86217-9) 0.80 0-5.0 [facility] CenterTroponin I measurement by highly sensitive enzyme abgxqvzthzw0986-56-95 23:05:00* Test Item Value Reference Range Interpretation Comments Troponin I (test code = 99737-9) 0.003 0-0.300 [facility] gastrointestinal hemoglobin ydudfcstz5474-62-99 15:00:00* Test Item Value Reference Range Interpretation Comments Stool Occult Blood (test code = 2335-8) POSITIVE NEGATIVE [facility] gastrointestinal hemoglobin geefuxhqr9888-41-10 15:00:00* Test Item Value Reference Range Interpretation Comments Stool Occult Blood (test code = 2335-8) POSITIVE NEGATIVE [place] [facility] or plasma hepatitis A virus IgM antibody detection by usblctdhiyv9109-97-40 09:30:00* Test Item Value Reference Range Interpretation Comments Hepatitis A IgM Antibody (test code = 91847-4) Negative Negativ e [place] [facility]er[facility] or plasma hepatitis B virus surface antigen detection by mkfewvxayvn6062-52-41 09:30:00* Test Item Value Reference Range Interpretation Comments Hepatitis B Surface Antigen (test code = 5196-1) Negative Negat raudel [place] [facility] Hospitalerum or plasma hepatitis B virus core IgM antibody detection by wnaywdchrwi0674-28-00 09:30:00* Test Item Value Reference Range Interpretation Comments Hepatitis B Core IgM Antibody (test code = 92907-5) Negative Ne gative [place] [facility] Hospitalerum hepatitis C virus antibody fjpaieors2502-04-54 09:30:00* Test Item Value Reference Range Interpretation Comments Hepatitis C Antibody (test code = 37016-6) 0.1 0.0-0.9 Negative: < 0.8 Indeterminate: 0.8 - 0.9 Positive: > 0.9 The CDC recommends that a positive HCV antibody result be followed up with a HCV Nucleic Acid Amplification test (555507).Performed at: [facility] [address] [place], [place] [id number] Director: Skip Garner MD, Phone: [phone] Children's Hospitalerum or plasma hepatitis A virus IgM antibody detection by oaiyezishfo9071-87-42 09:30:00* Test Item Value Reference Range Interpretation Comments Hepatitis A IgM Antibody (test code = 16756-6) Negative Negativ e [place] [facility] or plasma hepatitis B virus surface antigen detection by zvekeamcmbs2997-53-82 09:30:00* Test Item Value Reference Range Interpretation Comments Hepatitis B Surface Antigen (test code = 5196-1) Negative Negat raudel [place] [facility] Hospitalerum or plasma hepatitis B virus core IgM antibody detection by usptvjgkgrd6620-18-80 09:30:00* Test Item Value Reference Range Interpretation Comments Hepatitis B Core IgM Antibody (test code = 07632-3) Negative [facility] virus antibody meuuoelsm3672-97-08 09:30:00* Test Item Value Reference Range Interpretation Comments Hepatitis C Antibody (test code = 08543-1) 0.1 0.0-0.9 Negative: < 0.8 Indeterminate: 0.8 - 0.9 Positive: > 0.9 The CDC recommends that a positive HCV antibody result be followed up with a HCV Nucleic Acid Amplification test (529676).Performed at: [facility] [address] [place], [place] [id number] Director: Skip Garner MD, Phone: [phone] Children's Hospitalerum or plasma hepatitis A virus IgM antibody detection by rblmxjnrqre5620-42-71 09:30:00* Test Item Value Reference Range Interpretation Comments Hepatitis A IgM Antibody (test code = 53950-3) Negative Negativ [facility] hepatitis B virus surface antigen detection by qzyaglordel2974-74-32 09:30:00* Test Item Value Reference Range Interpretation Comments Hepatitis B Surface Antigen (test code = 5196-1) Negative Negat raudel [place] [facility]er[facility] or plasma hepatitis B virus core IgM antibody detection by tcziwiiljuz6530-45-88 09:30:00* Test Item Value Reference Range Interpretation Comments Hepatitis B Core IgM Antibody (test code = 60460-3) Negative Ne [facility]rum hepatitis C virus antibody hfltcbvfy5348-16-07 09:30:00* Test Item Value Reference Range Interpretation Comments Hepatitis C Antibody (test code = 13844-1) 0.1 0.0-0.9 Negative: < 0.8 Indeterminate: 0.8 - 0.9 Positive: > 0.9 The CDC recommends that a positive HCV antibody result be followed up with a HCV Nucleic Acid Amplification test (945625).Performed at: [facility] [address] [place], [place] [id number] Director: Skip Garner MD, Phone: [phone] [facility] C[facility] SP[facility] EU3277-85-53 15:26:00 [facility] [address], [place] [address] Patient Name: AMAURY CONTE MR #: [id number] : 1945 Age/Sex: 74/F Req #: [id number] Adm Physician: Ordered by: NEL BONNER MD Report #: [id number] Location: ER Room/Bed: Procedure: [id number] CT/CT CERVICAL SPINE WO Exam Date: 04/20/20 [...] assessed by CT. Signed by: Dr. Salma Marley M.D. on 04/20/2020 3:36 PM Dictated By: SALMA MARLEY MD 35 Transcribed By: JUAN on 04/20/201535 COPY TO: NEL JAMES MD CT BRAIN FY7874-85-73 14:37:[address] [address] Patient Name: AMAURY CONTE MR #: [id number] : 1945 Age/Sex: 74/F Req #: [id number] Adm Physician: HUE PETERSON MD Ordered by: NEL BONNER MD Report #: [id number] Location: [facility]/SURG Room/Bed: [facility] Procedure: [id number] CT/CT BRAIN WO Exam Date: 04/20/20 Exam [...] on 04/20/2020 2:46 PM Dictated By: SALMA MARLEY MD 144 Transcribed By: JUAN on 04/20/20 144 COPY TO: NEL BONNER MD CHEST SINGLE (PORTABLE) 2020-04-20 14:08:[address] [address] Patient Name: AMAURY CONTE MR #: [id number] : 1945 Age/Sex: 74/F Req #: [id number] Adm Physician: Ordered by: NEL BONNER MD Report #: [id number] Location: ER Room/Bed: Procedure: [id number] DX/CHEST SINGL E (PORTABLE) Exam Date: 04/20/20 Exam Time: 1350 REPORT STATUS: Signed EXAMINATION: CHEST SINGLE (PORTABLE) INDICATION: SOB, AMS [id number] COMPARISON: CT chest 04/08/2020 FINDINGS: AP [...] bibasilar atelectasis . Signed by: Dr. Tatiana Lei M.D. on 04/20/2020 2:10 PM D ictated By: TATIANA LEI MD 09 Transcribed By: JUAN on 04/20/20 1410 CO PY TO: NEL BONNER MD Fluoroscopic procedure less than one hour klhuufgz7005-06-29 13:00:00* Test Item Value Reference Range Interpretation Comments Lactic Acid Level (test code = Lactic Acid Level) 1.7 0.5- 2.0 [place] [facility] magnesium measurement (mass/volume)2020-04-20 13:00:00* Test Item Value Reference Range Interpretation Comments Magnesium Level (test code = 80550-5) 2.1 1.3-2.1 [place] [facility] or plasma triglyceride measurement (mass/volume)2020-04-20 13:00:00* Test Item Value Reference Range Interpretation Comments Triglycerides Level (test code = 2571-8) 86 0-149 [place] [facility]er[facility] or plasma cholesterol measurement (mass/volume)2020-04-20 13:00:00* Test Item Value Reference Range Interpretation Comments Cholesterol Level (test code = 2093-3) 72 0-199 Less than 200 mg/dL Low Iucd653 - 239 mg/dL Borderline Bbdy203 m g/dl and greater High Risk [place] [facility] or [facility] cholesterol in LDL measurement (mass/volume) 2020-04-20 13:00:00* Test Item Value Reference Range Interpretation Comments LDL Cholesterol (test code = 2089-1) 38 60-130 [facility] cholesterol in HDL measurement (mass/volume)2020-04-20 13:00:00* Test Item Value Reference Range Interpretation Comments HDL Cholesterol (test code = 2085-9) 17 40-60 [place] [facility] or plasma total cholesterol/cholesterol in HDL mass yeygg0855-86-70 13:00:00* Test Item Value Reference Range Interpretation Comments Cholesterol/HDL Ratio (test code = 9830-1) 4.2 3.0-3.6 [facility] CenterBNP Pzq-hAqf6373-58-04 13:00:00* Test Item Value Reference Range Interpretation Comments B-Type Natriuretic Peptide (test code = 22915-2) 205.9 0-100 [facility] CenterFluoroscopic procedure less than one hour byyskubx7420-18-31 13:00:00* Test Item Value Reference Range Interpretation [...] under 564(g) of the ACT.Testing performed by [address] [id number] CenterBlood rxrpaou0425-45-64 13:00:00* Test Item Value Reference Range Interpretation Comments Blood Culture (test code = 41841269) NO GROWTH AFTER 5 DAYS, FINAL REPORT [facility] CenterBacterial urine zewrsqh5281-36-68 13:00:00* Test Item Value Reference Range Interpretation Comments Urine Culture (test code = 630-4) ESCHERICHIA COLI [place] [facility]er[facility] or plasma triglyceride measurement (mass/volume)2020-04-20 13:00:00* Test Item Value Reference Range Interpretation Comments Triglycerides Level (test code = 2571-8) 86 0-149 [place] [facility]er[facility] or plasma cholesterol measurement (mass/volume)2020-04-20 13:00:00* Test Item Value Reference Range Interpretation Comments Cholesterol Level (test code = 2093-3) 72 0-199 Less than 200 mg/dL Low Tdxa125 - 239 mg/dL Borderline Xavo687 m g/dl and greater High Risk [place] [facility]erum or plasma cholesterol in LDL measurement (mass/volume) 2020-04-20 13:00:00* Test Item Value Reference Range Interpretation Comments LDL Cholesterol (test code = 2089-1) 38 60-130 [place] [facility] or plasma cholesterol in HDL measurement (mass/volume)2020-04-20 13:00:00* Test Item Value Reference Range Interpretation Comments HDL Cholesterol (test code = 2085-9) 17 40-60 [place] [facility]er[facility] or plasma total cholesterol/cholesterol in HDL mass qrvll4651-63-41 13:00:00* Test Item Value Reference Range Interpretation Comments Cholesterol/HDL Ratio (test code = 9830-1) 4.2 3.0-3.6 [facility] CenterBacterial urine ewxqxvg5552-68-80 13:00:00* Test Item Value Reference Range Interpretation Comments Urine Culture (test code = 630-4) ESCHERICHIA COLI [facility] CenterBacterial urine gtsxdzi9961-38-86 13:00:00* Test Item Value Reference Range Interpretation Comments Urine Culture (test code = 630-4) ESCHERICHIA COLI [place] [facility] HospitalP LUMBAR, COMPLETE MIN 5JW7986-46-94 23:47:00 [facility] [address] [address] Patient Name: AMAURY CONTE MR #: [id number] : 1945 Age/Sex: 74/F Req #: [id number] Adm Physician: Ordered by: SHANKAR NEWMAN DO Report #: [id number] Location: ER Room/Bed: Procedure: [id number] DX/SP LUMBA R, COMPLETE MIN 4VW Exam [...] 11:49 PM Dictated By: BRANDEN DASILVA MD [id number] Transcribed By: JUAN on 04/19/20 2437 COPY TO: SHANKAR NEWMAN DO THORACIC SP 9T9607-62-93 23:47:00 [facility] [address] [address] Patient Name: AMAURY CONTE MR #: [id number] : 1945 Age/Sex: 74/F Req #: [id number] Adm Physician: Ordered by: SHANKAR NEWMAN DO Report #: [id number] Location: [facility]/Bed: Procedure: [id number] DX/THORACIC SP 3V Exam Date: 04/19/20 Exam [...] 49 PM Dictated By: BRANDEN DASILVA MD 48 Transcribed By: JUAN on 04/19/202348 COPY T O: SHANKAR NEWMAN DO Prothrombin time (PT) in platelet poor plasma by coagulation ceprx9065-74-37 11:45:00* Test Item Value Reference Range Interpretation Comments Prothrombin Time (test code = 5902-2) 20.5 11.9-14.5 [facility] CenterINR in Platelet poor plasma by Coagulation vxcnd3927-60-75 11:45:00* Test Item Value Reference Range Interpretation Comments Prothromb Time International Ratio (test code = 6301-6) 1.63 Oral Anticoagulant Therapy INR Values:1. Low Intensity Therapy 1.5 - 2.02 . Moderate Intensity Therapy 2.0 - 3.03. High Intensity Therapy(1) 2.5 - 3. 54. High Intensity Therapy(2) 3.0 - 4.05. Panic Value INR > 5.0 [facility] CenterProthrombin time (PT) in platelet poor plasma by coagulation pivye0084-02-86 11:45:00* Test Item Value Reference Range Interpretation Comments Prothrombin Time (test code = 5902-2) 20.5 11.9-14.5 [facility] CenterINR in Platelet poor plasma by Coagulation zdytz5695-50-44 11:45:00* Test Item Value Reference Range Interpretation Comments Prothromb Time International Ratio (test code = 6301-6) 1.63 Oral Anticoagulant Therapy INR Values:1. Low Intensity Therapy 1.5 - 2.02 . Moderate Intensity Therapy 2.0 - 3.03. High Intensity Therapy(1) 2.5 - 3. 54. High Intensity Therapy(2) 3.0 - 4.05. Panic Value INR > 5.0 [facility] CenterCapillary blood glucose measurement by glucometer (mass/volume)2020-04-09 07:16:00* Test Item Value Reference Range Interpretation Comments Bedside Glucose (test code = 78283-2) 99 70-120 Meter ID: [id number] Regional Medical CenterCapillary blood glucose measurement by glucometer (mass/volume)2020-04-09 07:16:00* Test Item Value Reference Range Interpretation Comments Bedside Glucose (test code = 61911-9) 99 70-120 Meter ID: [id number] Regional Medical CenterBlood leukocytes automated count (number/volume)2020-04-09 05:40:00* Test Item Value Reference Range Interpretation Comments White Blood Count (test code = 6690-2) 4.39 4.8-10.8 [facility] CenterBlood erythrocytes automated count (number/volume)2020-04-09 05:40:00* Test Item Value Reference Range Interpretation Comments Red Blood Count (test code = 789-8) 2.55 3.6-5.1 [facility] CenterBlcook hospital hemoglobin measurement (moles/volume)2020-04-09 05:40:00* Test Item Value Reference Range Interpretation Comments Hemoglobin (test code = 36584-2) 8.2 12.0-16.0 [facility] CenterAutomated blood hematocrit (volume fraction)2020-04-09 05:40:00* Test Item Value Reference Range Interpretation Comments Hematocrit (test code = 4544-3) 27.0 34.2-44.1 [facility] CenterAutomated erythrocyte mean corpuscular hwjirr5616-09-86 05:40:00* Test Item Value Reference Range Interpretation Comments Mean Corpuscular Volume (test code = 787-2) 105.9 81-99 [facility] CenterAutomated erythrocyte mean corpuscular hemoglobin (mass per erythrocyte)2020-04-09 05:40:00* Test Item Value Reference Range Interpretation Comments Mean Corpuscular Hemoglobin (test code = 785-6) 32.2 28-32 [facility] CenterAutomated erythrocyte mean corpuscular hemoglobin concentration measurement (mass/volume)2020-04-09 05:40:00* Test Item Value Reference Range Interpretation Comments Mean Corpuscular Hemoglobin Concent (test code = 786-4) 30.4 31-35 [facility] CenterRDW KzxPy-Sav0433-37-23 05:40:00* Test Item Value Reference Range Interpretation Comments Red Cell Distribution Width (test code = 68066-1) 21.6 11.7 -14.4 [facility] CenterAutomated blood platelet count (count/volume)2020-04-09 05:40:00* Test Item Value Reference Range Interpretation Comments Platelet Count (test code = 777-3) 133 140-360 [facility] CenterAutcarolinaeast medical centered blood segmented neutrophil count as percentage of total pykqvueuye7134-52-81 05:40:00* Test Item Value Reference Range Interpretation Comments Neutrophils (%) (Auto) (test code = 05997-2) 50.8 38.7-80.0 [facility] CenterAutomated blood lymphocyte count as percentage ot total bgqamkbaoz0302-89-88 05:40:00* Test Item Value Reference Range Interpretation Comments Lymphocytes (%) (Auto) (test code = 736-9) 26.7 18.0-39.1 [facility] CenterAutomated blood monocyte count as percentage of total adnljwbvii7416-20-94 05:40:00* Test Item Value Reference Range Interpretation Comments Monocytes (%) (Auto) (test code = 5905-5) 15.7 4.4-11.3 [facility] CenterAutomated blood eosinophil count as percentage of total imotyjirnx9854-87-03 05:40:00* Test Item Value Reference Range Interpretation Comments Eosinophils (%) (Auto) (test code = 713-8) 5.9 0.0-6.0 [facility] CenterAutomated blood basophil count as percentage of total aalrrdlssy5328-73-16 05:40:00* Test Item Value Reference Range Interpretation Comments Basophils (%) (Auto) (test code = 706-2) 0.7 0.0-1.0 [facility] CenterFluoroscopic procedure less than one hour fylrwoxi7263-27-41 05:40:00* Test Item Value Reference Range Interpretation Comments IM GRANULOCYTES % (test code = IM GRANULOCYTES %) 0.2 0.0- 1.0 [facility] CenterAutomated blood neutrophil count 2020-04-09 05:40:00* Test Item Value Reference Range Interpretation Comments Neutrophils # (Auto) (test code = 751-8) 2.2 2.1-6.9 [facility] CenterBlood lymphocytes count (number/volume) 2020-04-09 05:40:00* Test Item Value Reference Range Interpretation Comments Lymphocytes # (Auto) (test code = 82845-1) 1.2 1.0-3.2 [facility] CenterBlcook hospital monocytes automated count (number/volume)2020-04-09 05:40:00* Test Item Value Reference Range Interpretation Comments Monocytes # (Auto) (test code = 742-7) 0.7 0.2-0.8 [facility] CenterAutomated blood eosinophil count 2020-04-09 05:40:00* Test Item Value Reference Range Interpretation Comments Eosinophils # (Auto) (test code = 711-2) 0.3 0.0-0.4 [facility] CenterAutomated blood basophil count (count/volume)2020-04-09 05:40:00* Test Item Value Reference Range Interpretation Comments Basophils # (Auto) (test code = 704-7) 0.0 0.0-0.1 [facility] CenterFluoroscopic procedure less than one hour kxrusmva9316-72-57 05:40:00* Test Item Value Reference Range Interpretation Comments Absolute Immature Granulocyte (auto (lyssa t code = Absolute Immature Granulocyte (auto) 0.01 0-0.1 [place] [facility] Hospitaler[facility] or plasma sodium measurement (moles/volume)2020-04-09 05:40:00* Test Item Value Reference Range Interpretation Comments Sodium Level (test code = 2951-2) 149 136-145 [place] [facility] Hospitalerum or plasma potassium measurement (moles/volume)2020-04-09 05:40:00* Test Item Value Reference Range Interpretation Comments Potassium Level (test code = 2823-3) 3.9 3.5-5.1 [place] [facility] Hospitalerum or plasma chloride measurement (moles/volume)2020-04-09 05:40:00* Test Item Value Reference Range Interpretation Comments Chloride Level (test code = 2075-0) 121 98-107 [facility] Hospitalerum or plasma carbon dioxide, total measurement (moles/volume)2020-04-09 05:40:00* Test Item Value Reference Range Interpretation Comments Carbon Dioxide Level (test code = 2028-9) 23 22-29 [place] [facility] Hospitalerum or plasma anion xhp0681-69-61 05:40:00* Test Item Value Reference Range Interpretation Comments Anion Gap (test code = 78661-7) 8.9 8-16 [facility] Hospitalerum or plasma urea nitrogen measurement (mass/volume)2020-04-09 05:40:00* Test Item Value Reference Range Interpretation Comments Blood Urea Nitrogen (test code = 3094-0) 32 7-26 [place] [facility] Hospitalerum or plasma creatinine measurement (mass/volume)2020-04-09 05:40:00* Test Item Value Reference Range Interpretation Comments Creatinine (test code = 2160-0) 1.23 0.57-1.11 [place] [facility] Hospitalerum or plasma urea nitrogen/creatinine mass rsepx9864-13-22 05:40:00* Test Item Value Reference Range Interpretation Comments BUN/Creatinine Ratio (test code = 3097-3) 26 6-25 [facility] CenterEstimated glomerular filtration rate (GFR) wasnnqddyqauw7752-73-53 05:40:00* Test Item Value Reference Range Interpretation Comments Estimat Glomerular Filtration Rate (test code = 040479797) 43 >60 Ranges were taken from the National Kidney Disease Education Program and the [facility] Foundation literature.Reference ranges:60 or greater: Wyuehm26-51 ( for 3 consecutive months): Chronic kidney disease 15 or less: Kidney failurePampa Regional Medical CenterGlucose foumwowjbqm1556-40-83 05:40:00* Test Item Value Reference Range Interpretation Comments Glucose Level (test code = NDH4230) 92 74-118 [place] [facility] Hospitalerum or plasma calcium measurement (mass/volume)2020-04-09 05:40:00* Test Item Value Reference Range Interpretation Comments Calcium Level (test code = 41208-9) 8.3 8.4-10.2 [place] [facility] Hospitalerum or plasma magnesium measurement (mass/volume)2020-04-09 05:40:00* Test Item Value Reference Range Interpretation Comments Magnesium Level (test code = 11486-4) 2.0 1.3-2.1 [place] [facility] Hospitalerum or plasma total bilirubin measurement (mass/volume)2020-04-09 05:40:00* Test Item Value Reference Range Interpretation Comments Total Bilirubin (test code = 1975-2) 1.5 0.2-1.2 [facility] CenterFluoroscopic procedure less than one hour oryftjpa2479-65-29 05:40:00* Test Item Value Reference Range Interpretation Comments Aspartate Amino Transf (AST/SGOT) (test code = Aspartate Amino Transf (AST/SGOT)) 63 5-34 [place] [facility] Hospitalerum or plasma alanine aminotransferase measurement (enzymatic activity/volume)2020-04-09 05:40:00* Test Item Value Reference Range Interpretation Comments Alanine Aminotransferase (ALT/SGPT) (test code = 1742-6) 27 0-55 [facility] CenterAmmonia Pvp-rNei4705-60-23 05:40:00* Test Item Value Reference Range Interpretation Comments Ammonia (test code = 11924-8) 84 31-123 [place] [facility] Hospitalerum or plasma protein measurement (mass/volume)2020-04-09 05:40:00* Test Item Value Reference Range Interpretation Comments Total Protein (test code = 2885-2) 5.5 6.5-8.1 [place] [facility] Hospitalerum or plasma albumin measurement (mass/volume)2020-04-09 05:40:00* Test Item Value Reference Range Interpretation Comments Albumin (test code = 1751-7) 2.4 3.5-5.0 [facility] CenterPlasma globulin measurement (mass/volume) 2020-04-09 05:40:00* Test Item Value Reference Range Interpretation Comments Globulin (test code = 17473-4) 3.1 2.3-3.5 [facility] Hospitalerum or plasma albumin/globulin mass sahtf8972-67-58 05:40:00* Test Item Value Reference Range Interpretation Comments Albumin/Globulin Ratio (test code = 1759-0) 0.8 0.8-2.0 [facility]er[facility] or plasma alkaline phosphatase measurement (enzymatic activity/volume)2020-04-09 05:40:00* Test Item Value Reference Range Interpretation Comments Alkaline Phosphatase (test code = 6768-6) 134 40-150 [facility] CenterBlood leukocytes automated count (number/volume)2020-04-09 05:40:00* Test Item Value Reference Range Interpretation Comments White Blood Count (test code = 6690-2) 4.39 4.8-10.8 [facility] CenterBlood erythrocytes automated count (number/volume)2020-04-09 05:40:00* Test Item Value Reference Range Interpretation Comments Red Blood Count (test code = 789-8) 2.55 3.6-5.1 [facility] CenterBlood hemoglobin measurement (moles/volume)2020-04-09 05:40:00* Test Item Value Reference Range Interpretation Comments Hemoglobin (test code = 17293-3) 8.2 12.0-16.0 [facility] CenterAutomated blood hematocrit (volume fraction)2020-04-09 05:40:00* Test Item Value Reference Range Interpretation Comments Hematocrit (test code = 4544-3) 27.0 34.2-44.1 [facility] CenterAutomated erythrocyte mean corpuscular vmdluc3885-46-19 05:40:00* Test Item Value Reference Range Interpretation Comments Mean Corpuscular Volume (test code = 787-2) 105.9 81-99 [facility] CenterAutomated erythrocyte mean corpuscular hemoglobin (mass per erythrocyte)2020-04-09 05:40:00* Test Item Value Reference Range Interpretation Comments Mean Corpuscular Hemoglobin (test code = 785-6) 32.2 28-32 [facility] CenterAutomated erythrocyte mean corpuscular hemoglobin concentration measurement (mass/volume)2020-04-09 05:40:00* Test Item Value Reference Range Interpretation Comments Mean Corpuscular Hemoglobin Concent (test code = 786-4) 30.4 31-35 [facility] CenterRDW JgqPn-Xxv7034-45-23 05:40:00* Test Item Value Reference Range Interpretation Comments Red Cell Distribution Width (test code = 77883-4) 21.6 11.7 -14.4 [facility] CenterAutomated blood platelet count (count/volume)2020-04-09 05:40:00* Test Item Value Reference Range Interpretation Comments Platelet Count (test code = 777-3) 133 140-360 [facility] CenterAutcarolinaeast medical centered blood segmented neutrophil count as percentage of total thczqkoouq2656-64-82 05:40:00* Test Item Value Reference Range Interpretation Comments Neutrophils (%) (Auto) (test code = 55704-2) 50.8 38.7-80.0 [facility] CenterAutomated blood lymphocyte count as percentage ot total rshsansyqg6284-31-26 05:40:00* Test Item Value Reference Range Interpretation Comments Lymphocytes (%) (Auto) (test code = 736-9) 26.7 18.0-39.1 [facility] CenterAutomated blood monocyte count as percentage of total tbazravhwr2458-85-82 05:40:00* Test Item Value Reference Range Interpretation Comments Monocytes (%) (Auto) (test code = 5905-5) 15.7 4.4-11.3 [facility] CenterAutomated blood eosinophil count as percentage of total vyzqgjudch4135-58-33 05:40:00* Test Item Value Reference Range Interpretation Comments Eosinophils (%) (Auto) (test code = 713-8) 5.9 0.0-6.0 [facility] CenterAutomated blood basophil count as percentage of total jlahocfqmy3208-22-21 05:40:00* Test Item Value Reference Range Interpretation Comments Basophils (%) (Auto) (test code = 706-2) 0.7 0.0-1.0 [facility] CenterFluoroscopic procedure less than one hour syplbwfu1138-67-44 05:40:00* Test Item Value Reference Range Interpretation Comments IM GRANULOCYTES % (test code = IM GRANULOCYTES %) 0.2 0.0- 1.0 [facility] CenterAutomated blood neutrophil count 2020-04-09 05:40:00* Test Item Value Reference Range Interpretation Comments Neutrophils # (Auto) (test code = 751-8) 2.2 2.1-6.9 [facility] CenterBlood lymphocytes count (number/volume) 2020-04-09 05:40:00* Test Item Value Reference Range Interpretation Comments Lymphocytes # (Auto) (test code = 88106-4) 1.2 1.0-3.2 [facility] CenterBlood monocytes automated count (number/volume)2020-04-09 05:40:00* Test Item Value Reference Range Interpretation Comments Monocytes # (Auto) (test code = 742-7) 0.7 0.2-0.8 [facility] CenterAutomated blood eosinophil count 2020-04-09 05:40:00* Test Item Value Reference Range Interpretation Comments Eosinophils # (Auto) (test code = 711-2) 0.3 0.0-0.4 [facility] CenterAutomated blood basophil count (count/volume)2020-04-09 05:40:00* Test Item Value Reference Range Interpretation Comments Basophils # (Auto) (test code = 704-7) 0.0 0.0-0.1 [facility] CenterFluoroscopic procedure less than one hour taiwlkcr6152-74-47 05:40:00* Test Item Value Reference Range Interpretation Comments Absolute Immature Granulocyte (auto (lyssa t code = Absolute Immature Granulocyte (auto) 0.01 0-0.1 [facility] Hospitaler[facility] or plasma sodium measurement (moles/volume)2020-04-09 05:40:00* Test Item Value Reference Range Interpretation Comments Sodium Level (test code = 2951-2) 149 136-145 [facility] Hospitaler[facility] or plasma potassium measurement (moles/volume)2020-04-09 05:40:00* Test Item Value Reference Range Interpretation Comments Potassium Level (test code = 2823-3) 3.9 3.5-5.1 [facility] Hospitaler[facility] or plasma chloride measurement (moles/volume)2020-04-09 05:40:00* Test Item Value Reference Range Interpretation Comments Chloride Level (test code = 2075-0) 121 98-107 [facility] Hospitalerum or plasma carbon dioxide, total measurement (moles/volume)2020-04-09 05:40:00* Test Item Value Reference Range Interpretation Comments Carbon Dioxide Level (test code = 2028-9) 23 22-29 [facility] Hospitalerum or plasma anion ehj8964-44-94 05:40:00* Test Item Value Reference Range Interpretation Comments Anion Gap (test code = 11795-6) 8.9 8-16 [facility]er[facility] plasma urea nitrogen measurement (mass/volume)2020-04-09 05:40:00* Test Item Value Reference Range Interpretation Comments Blood Urea Nitrogen (test code = 3094-0) 32 7-26 [facility]er[facility] or plasma creatinine measurement (mass/volume)2020-04-09 05:40:00* Test Item Value Reference Range Interpretation Comments Creatinine (test code = 2160-0) 1.23 0.57-1.11 [facility] Hospitaler[facility] or plasma urea nitrogen/creatinine mass kksvh7954-15-34 05:40:00* Test Item Value Reference Range Interpretation Comments BUN/Creatinine Ratio (test code = 3097-3) 26 6-25 [facility] CenterEstimated glomerular filtration rate (GFR) xgxjxoxjasmcq0753-22-62 05:40:00* Test Item Value Reference Range Interpretation Comments Estimat Glomerular Filtration Rate (test code = 091570072) 43 >60 Ranges were taken from the National Kidney Disease Education Program and the [facility] literature.Reference ranges:60 or greater: Jtakjs41-58 ( for 3 consecutive months): Chronic kidney disease 15 or less: Kidney failurePampa Regional Medical CenterGlucose oaexesazoto0083-63-64 05:40:00* Test Item Value Reference Range Interpretation Comments Glucose Level (test code = FAL1334) 92 74-118 [facility] Hospitaler[facility] or plasma calcium measurement (mass/volume)2020-04-09 05:40:00* Test Item Value Reference Range Interpretation Comments Calcium Level (test code = 96622-8) 8.3 8.4-10.2 [facility] Hospitaler[facility] or plasma magnesium measurement (mass/volume)2020-04-09 05:40:00* Test Item Value Reference Range Interpretation Comments Magnesium Level (test code = 77758-6) 2.0 1.3-2.1 [facility] Hospitaler[facility] or plasma total bilirubin measurement (mass/volume)2020-04-09 05:40:00* Test Item Value Reference Range Interpretation Comments Total Bilirubin (test code = 1975-2) 1.5 0.2-1.2 [facility] CenterFluoroscopic procedure less than one hour fyhaktfw6027-47-32 05:40:00* Test Item Value Reference Range Interpretation Comments Aspartate Amino Transf (AST/SGOT) (test code = Aspartate Amino Transf (AST/SGOT)) 63 5-34 [facility] Hospitalerum or plasma alanine aminotransferase measurement (enzymatic activity/volume)2020-04-09 05:40:00* Test Item Value Reference Range Interpretation Comments Alanine Aminotransferase (ALT/SGPT) (test code = 1742-6) 27 0-55 [facility] CenterAmmonia Ipx-lJvw5033-61-23 05:40:00* Test Item Value Reference Range Interpretation Comments Ammonia (test code = 17885-3) 84 31-123 [facility] Hospitaler[facility] or plasma protein measurement (mass/volume)2020-04-09 05:40:00* Test Item Value Reference Range Interpretation Comments Total Protein (test code = 2885-2) 5.5 6.5-8.1 [facility] Hospitalerum or plasma albumin measurement (mass/volume)2020-04-09 05:40:00* Test Item Value Reference Range Interpretation Comments Albumin (test code = 1751-7) 2.4 3.5-5.0 [facility] CenterPlasma globulin measurement (mass/volume) 2020-04-09 05:40:00* Test Item Value Reference Range Interpretation Comments Globulin (test code = 57906-1) 3.1 2.3-3.5 [facility] Hospitalerum or plasma albumin/globulin mass ocffc2730-80-75 05:40:00* Test Item Value Reference Range Interpretation Comments Albumin/Globulin Ratio (test code = 1759-0) 0.8 0.8-2.0 [facility] Hospitalerum or plasma alkaline phosphatase measurement (enzymatic activity/volume)2020-04-09 05:40:00* Test Item Value Reference Range Interpretation Comments Alkaline Phosphatase (test code = 6768-6) 134 40-150 [facility] CenterCTA ORSYH5294-08-28 22:17:00 [facility] [address] [place] [address] Patient Name: AMAURY CONTE MR #: [id number] : 1945 Age/Sex: 74/F Req #: [id number] Adm Physician: HUE PETERSON MD Ordered by: Lawanda Cook NP Report #: [id number] Location: [facility] Room/Bed: 289-1 Procedure: [id number] CT/CTA BRAIN Exam Date: 04/08/20 Exam Time: [...] as a percentag e relative to the [place] artery distal to the stenosis (NASCET). Streak [...] 10:35 PM Dictated By: SANDOVAL GONZALEZ MD [id number] Transcribed By: JUAN on 04/08/20 2 235 COPY TO: LAWANDA COOK NP CTA VSWF5261-05-93 22:17:00 [place] [address] Patient Name: AMAURY CONTE MR #: [id number] : 1945 Age/Sex: 74/F Req #: [id number] Adm Physician: HUE PETERSON MD Ordered by: Lawanda Cook [employer] Report #: [id number] Location: MED/SURG3 Room/Bed: [facility] Procedure: [id number] CT/CTA NECK Exam Date: 04/08/20 Exam Time: [...] measured as a percentage relative to the [place] artery distal to the stenosis (NASCET). Streak [...] isconsidered to represent cl inical deficiency.Performed at: [facility] [id number] Director: Skip Garner MD, Phone: [phone] Children's Hospitalerum or plasma folate measurement (mass/volume) 2020-04-08 17:10:00* Test Item Value Reference Range Interpretation Comments Folate (test code = 2284-8) 18.4 >3.0 A serum folate concentration of less than 3.1 ng/mL isconsidered to represent cl inical deficiency.Performed at: [facility] [id number] Director: Skip Garner MD, Phone: [phone] Regional Medical Centerol gastrointestinal hemoglobin kkfrcxdgo8965-54-64 16:40:00* Test Item Value Reference Range Interpretation Comments Stool Occult Blood (test code = 2335-8) POSITIVE NEGATIVE [facility] gastrointestinal hemoglobin fgrwxlwse3026-74-19 16:40:00* Test Item Value Reference Range Interpretation Comments Stool Occult Blood (test code = 2335-8) POSITIVE NEGATIVE [facility] CenterUS RMNSY1838-92-70 10:49:00 [place] [address] Patient Name: AMAURY CONTE MR #: [id number] : 1945 Age/Sex: 74/F Req #: [id number] Adm Physician: HUE PETERSON MD Ordered by: Lawanda Cook NP Report #: [id number] Location: [facility] Room/Bed: [facility] Procedure: [id number] US/US LIVER Exam Date: 04/08/20 Exam Time: [...] COPY TO: LAWANDA COOK NP CT CHEST [id number] 09:45:00 [place] [address] Patient Name: AMAURY CONTE MR #: [id number] : 1945 Age/Sex: 74/F Req #: [id number] Adm Physician: HUE PETRESON MD Ordered by: Lawanda Cook NP Re port #: [id number] Location: [facility] Room/ Bed: [facility] Procedure: [id number] CT/CT CHEST W O Exam Date: 04/08/20 Exam Time: 0420 REPORT STATUS: Signed CT of the chest. Co mparison: None Clinical History: Altered mental status Technique: Hel ical CT scan of the chest was performed from just above the thoracic inlet thr ough the adrenal glands. Intravenous contrast administration was not utilized . Coronal and sagittal reconstructions were generated from the raw data. [facility] tiple images were submitted for interpretation. This [...] Interpretation Comments Platelet Estimate (test code = 70631-2) ADEQUATE [facility] CenterPlatelet linhtkwioy0178-32-78 05:20:00* Test Item Value Reference Range Interpretation Comments Platelet Morphology Comment (test code = 53362-3) NORMAL [facility] CenterBlood polychromasia detection by light flwiswylkh0724-15-10 05:20:00* Test Item Value Reference Range Interpretation Comments Polychromasia (test code = 60982-8) FEW [facility] CenterBlood anisocytosis detection by light nkylwjubof6781-95-47 05:20:00* Test Item Value Reference Range Interpretation Comments Anisocytosis (test code = 702-1) MODERATE [facility] CenterBlood macrocytes detection by light newxeytqjw3874-06-62 05:20:00* Test Item Value Reference Range Interpretation Comments Macrocytosis (test code = 738-5) MODERATE [facility] CenterBlood ovalocytes detection by light dzakdpjpqm6111-17-75 05:20:00* Test Item Value Reference Range Interpretation Comments Ovalocytes (test code = 774-0) FEW [facility] CenterRB qiioyahdfd6921-66-93 05:20:00* Test Item Value Reference Range Interpretation Comments Red Cell Morphology Comment (test code = 6742-1) ABNORMAL [facility] CenterAutomated reticulocyte count as percentage of total idixfaxvhvzj2462-01-33 05:20:00* Test Item Value Reference Range Interpretation Comments Percent Reticulocyte Count (test code = 50270-3) 5.7 0.8-2 .2 [facility] CenterFluoroscopic procedure less than one hour qlrzgsrr8566-05-05 05:20:00* Test Item Value Reference Range Interpretation Comments Hemoglobin A1c Percent (test code = Hemoglobin A1c Percent) 5.2 4.0-7.0 [facility] Hospitaler[facility] or plasma iron measurement (mass/volume)2020-04-08 05:20:00* Test Item Value Reference Range Interpretation Comments Iron Level (test code = 2498-4) 62 50-170 [facility]erum or plasma iron binding capacity measurement (mass/volume)2020-04-08 05:20:00* Test Item Value Reference Range Interpretation Comments Total Iron Binding Capacity (test code = 2500-7) 413 261-4 78 [facility] Hospitalerum or plasma iron saturation measurement (mass fraction)2020-04-08 05:20:00* Test Item Value Reference Range Interpretation Comments Percent Iron Saturation (test code = 2502-3) 15 15-50 [facility]er[facility] or plasma transferrin measurement (mass/volume)2020-04-08 05:20:00* Test Item Value Reference Range Interpretation Comments Transferrin (test code = 3034-6) 295 180-382 [facility]er[facility] or plasma triglyceride measurement (mass/volume)2020-04-08 05:20:00* Test Item Value Reference Range Interpretation Comments Triglycerides Level (test code = 2571-8) 76 0-149 [facility] Hospitalerum or plasma cholesterol measurement (mass/volume)2020-04-08 05:20:00* Test Item Value Reference Range Interpretation Comments Cholesterol Level (test code = 2093-3) 80 0-199 Less than 200 mg/dL Low Uesq278 - 239 mg/dL Borderline Yefe866 m g/dl and greater High Risk [facility]er[facility] or plasma cholesterol in LDL measurement (mass/volume) 2020-04-08 05:20:00* Test Item Value Reference Range Interpretation Comments LDL Cholesterol (test code = 2089-1) 48 60-130 [facility]erum or plasma cholesterol in HDL measurement (mass/volume)2020-04-08 05:20:00* Test Item Value Reference Range Interpretation Comments HDL Cholesterol (test code = 2085-9) 17 40-60 [facility] Hospitalerum or plasma total cholesterol/cholesterol in HDL mass gnisz5920-67-03 05:20:00* Test Item Value Reference Range Interpretation Comments Cholesterol/HDL Ratio (test code = 9830-1) 4.7 3.0-3.6 [facility] Hospitalerum or plasma creatine kinase measurement (enzymatic activity/volume)2020-04-08 05:20:00* Test Item Value Reference Range Interpretation Comments Creatine Kinase (test code = 2157-6) 56 29-168 [facility] Hospitalerum or plasma creatine kinase MB measurement (mass/volume)2020-04-08 05:20:00* Test Item Value Reference Range Interpretation Comments Creatine Kinase MB (test code = 84465-5) 1.30 0-5.0 [facility] CenterTroponin I measurement by highly sensitive enzyme uarwjssassn4446-37-31 05:20:00* Test Item Value Reference Range Interpretation Comments Troponin I (test code = 41067-5) 0.017 0-0.300 [facility] CenterBlood cobalamin (vitamin B12) measurement (mass/volume)2020-04-08 05:20:00* Test Item Value Reference Range Interpretation Comments Vitamin B12 Level (test code = 18392-5) > 2000 213-816 [facility] CenterBlood platelets count by estimate (number/volume)2020-04-08 05:20:00* Test Item Value Reference Range Interpretation Comments Platelet Estimate (test code = 04180-7) ADEQUATE [facility] CenterPlatelet ssqzhapoms6549-56-52 05:20:00* Test Item Value Reference Range Interpretation Comments Platelet Morphology Comment (test code = 46123-2) NORMAL [facility] CenterBlcook hospital polychromasia detection by light ytgfxhbpnp4016-02-51 05:20:00* Test Item Value Reference Range Interpretation Comments Polychromasia (test code = 32802-3) FEW [facility] CenterBlood anisocytosis detection by light xsmzahipie0813-28-36 05:20:00* Test Item Value Reference Range Interpretation Comments Anisocytosis (test code = 702-1) MODERATE [facility] CenterBlood macrocytes detection by light aoibndlsba4585-20-65 05:20:00* Test Item Value Reference Range Interpretation Comments Macrocytosis (test code = 738-5) MODERATE [facility] CenterBlood ovalocytes detection by light mwpyslthfg0606-49-46 05:20:00* Test Item Value Reference Range Interpretation Comments Ovalocytes (test code = 774-0) FEW [facility] CenterRBC mtmhgizfgq8009-65-89 05:20:00* Test Item Value Reference Range Interpretation Comments Red Cell Morphology Comment (test code = 6742-1) ABNORMAL [facility] CenterAutomated reticulocyte count as percentage of total emgqfdnpvgmh0798-30-42 05:20:00* Test Item Value Reference Range Interpretation Comments Percent Reticulocyte Count (test code = 92313-7) 5.7 0.8-2 .2 [facility] CenterFluoroscopic procedure less than one hour xybknisx4782-50-02 05:20:00* Test Item Value Reference Range Interpretation Comments Hemoglobin A1c Percent (test code = Hemoglobin A1c Percent) 5.2 4.0-7.0 [facility]er[facility] or plasma iron measurement (mass/volume)2020-04-08 05:20:00* Test Item Value Reference Range Interpretation Comments Iron Level (test code = 2498-4) 62 50-170 [facility]erum or plasma iron binding capacity measurement (mass/volume)2020-04-08 05:20:00* Test Item Value Reference Range Interpretation Comments Total Iron Binding Capacity (test code = 2500-7) 413 261-4 78 [facility] Hospitalerum or plasma iron saturation measurement (mass fraction)2020-04-08 05:20:00* Test Item Value Reference Range Interpretation Comments Percent Iron Saturation (test code = 2502-3) 15 15-50 [facility]er[facility] or plasma transferrin measurement (mass/volume)2020-04-08 05:20:00* Test Item Value Reference Range Interpretation Comments Transferrin (test code = 3034-6) 295 180-382 [facility]erum or plasma triglyceride measurement (mass/volume)2020-04-08 05:20:00* Test Item Value Reference Range Interpretation Comments Triglycerides Level (test code = 2571-8) 76 0-149 [facility] Hospitalerum or plasma cholesterol measurement (mass/volume)2020-04-08 05:20:00* Test Item Value Reference Range Interpretation Comments Cholesterol Level (test code = 2093-3) 80 0-199 Less than 200 mg/dL Low Htuh487 - 239 mg/dL Borderline Vptg367 m g/dl and greater High Risk [facility] Hospitalerum or plasma cholesterol in LDL measurement (mass/volume) 2020-04-08 05:20:00* Test Item Value Reference Range Interpretation Comments LDL Cholesterol (test code = 2089-1) 48 60-130 [facility] Hospitalerum or plasma cholesterol in HDL measurement (mass/volume)2020-04-08 05:20:00* Test Item Value Reference Range Interpretation Comments HDL Cholesterol (test code = 2085-9) 17 40-60 [facility] Hospitalerum or plasma total cholesterol/cholesterol in HDL mass bgwpa4644-59-14 05:20:00* Test Item Value Reference Range Interpretation Comments Cholesterol/HDL Ratio (test code = 9830-1) 4.7 3.0-3.6 [facility] Hospitalerum or plasma creatine kinase measurement (enzymatic activity/volume)2020-04-08 05:20:00* Test Item Value Reference Range Interpretation Comments Creatine Kinase (test code = 2157-6) 56 29-168 [facility] Hospitalerum or plasma creatine kinase MB measurement (mass/volume)2020-04-08 05:20:00* Test Item Value Reference Range Interpretation Comments Creatine Kinase MB (test code = 37516-4) 1.30 0-5.0 [facility] CenterTroponin I measurement by highly sensitive enzyme osjeikpmtbd3709-10-50 05:20:00* Test Item Value Reference Range Interpretation Comments Troponin I (test code = 06917-6) 0.017 0-0.300 [facility] CenterBlcook hospital cobalamin (vitamin B12) measurement (mass/volume)2020-04-08 05:20:00* Test Item Value Reference Range Interpretation Comments Vitamin B12 Level (test code = 99301-1) > 2000 213-816 [facility] CenterBlcook hospital ovalocytes detection by light ytxmjllvlr0303-04-28 05:20:00* Test Item Value Reference Range Interpretation Comments Ovalocytes (test code = 774-0) FEW [facility] CenterFluoroscopic procedure less than one hour wljanyzd6749-60-64 05:20:00* Test Item Value Reference Range Interpretation Comments Hemoglobin A1c Percent (test code = Hemoglobin A1c Percent) 5.2 4.0-7.0 [facility] ovalocytes detection by light btfsnswzuw9072-43-26 05:20:00* Test Item Value Reference Range Interpretation Comments Ovalocytes (test code = 774-0) FEW [facility] CenterFluoroscopic procedure less than one hour iliwxpji4554-17-75 05:20:00* Test Item Value Reference Range Interpretation Comments Hemoglobin A1c Percent (test code = Hemoglobin A1c Percent) 5.2 4.0-7.0 [facility] CenterFluoroscopic procedure less than one hour zbbiaitd3920-71-21 05:20:00* Test Item Value Reference Range Interpretation Comments Hemoglobin A1c Percent (test code = Hemoglobin A1c Percent) 5.2 4.0-7.0 [facility] CenterFluoroscopic procedure less than one hour btbzuwnp8181-41-56 14:27:00* Test Item Value Reference Range Interpretation [...] complexity tests.Testing performed by [facility] [address] [phone] Director: Harmeet Chu M.D.[facility] # [id number] [facility] SINGLE (PORTABLE)2020-04-07 12:54:00 [facility] [address] [place] [address] Patient Name: AMAURY CONTE MR #: [id number] : 1945 Age/Sex: 74/F Req #: [id number] Adm Physician: Ordered by: NEL BONNER MD Report #: [id number] Location: ER Room/Bed: Procedure: [id number] DX/CHEST SINGL E (PORTABLE) Exam Date: 04/07/20 Exam Time: 1230 REPORT STATUS: Signed EXAMINATION: CHEST SINGLE (PORTABLE) COMPARISON: Chest x-ray 11/10/2018 INDICAT ION: AMS, HYPOTENSION [id number] DISCUSSION: Frontal view of the chest [...] COPY TO: NEL BONNER MD Urine color duicfbdxdaskp4747-14-18 12:25:00* Test Item Value Reference Range Interpretation Comments Urine Color (test code = 5778-6) YELLOW YELLOW [facility] yadwbtg9982-00-83 12:25:00* Test Item Value Reference Range Interpretation Comments Urine Clarity (test code = 63282-4) [facility]AR [facility]AR [facility] by Test strip 2020-04-07 12:25:00* Test Item Value Reference Range Interpretation Comments Urine Specific [place] (test code = 5811-5) 1.025 1.010-1.02 5 [facility] pH measurement by automated test umnzn3869-15-35 12:25:00* Test Item Value Reference Range Interpretation Comments Urine pH (test code = 83321-5) 6.5 5-7 [facility] CenterU[facility] leukocyte esterase detection by coskzabh3602-17-69 12:25:00* Test Item Value Reference Range Interpretation Comments Urine Leukocyte Esterase (test code = 5799-2) NEGATIVE NEGATIVE [facility] Center[facility] nitrite yhkesjlyw5562-50-57 12:25:00* Test Item Value Reference Range Interpretation Comments Urine Nitrite (test code = 40269-7) NEGATIVE NEGATIVE [facility] CenterU[facility] protein measurement by test strip (mass/volume)2020-04-07 12:25:00* Test Item Value Reference Range Interpretation Comments Urine Protein (test code = 5804-0) NEGATIVE NEGATIVE [facility] CenterU[facility] glucose kfjjvaccw9817-65-91 12:25:00* Test Item Value Reference Range Interpretation Comments Urine Glucose (UA) (test code = 2349-9) NEGATIVE NEGATIVE [facility] CenterU[facility] ketones detection by automated test xslxm4420-57-13 12:25:00* Test Item Value Reference Range Interpretation Comments Urine Ketones (test code = 78077-5) NEGATIVE NEGATIVE [facility] Center[facility] opiates screening tybw5057-36-70 12:25:00* Test Item Value Reference Range Interpretation Comments Urine Opiates Screen (test code = 16703-3) NEGATIVE NEGATIVE ALL TESTS PERFORMED MANUALLY ON cloud.IQ TOX/SEE TESTP[facility] CenterBarbiturates screen, kovlt7633-12-40 12:25:00* Test Item Value Reference Range Interpretation Comments Urine Barbiturates Screen (test code = 728782278) NEGATIVE NEGA TIVE [facility] CenterU[facility] phencyclidine detection by screening adscoo0214-11-57 12:25:00* Test Item Value Reference Range Interpretation Comments Urine Phencyclidine Screen (test code = 72535-0) NEGATIVE NEGAT RAUDEL [facility] CenterUrine amphetamines detection by screen method > 1000 ng/zJ4480-31-54 12:25:00* Test Item Value Reference Range Interpretation Comments Urine Amphetamines Screen (test code = 77531-4) NEGATIVE NEGATI VE [facility] CenterFluoroscopic procedure less than one hour wezijnic1721-06-65 12:25:00* Test Item Value Reference Range Interpretation Comments Urine Methamphetamines Screen (test code = Urine Metha mphetamines Screen) NEGATIVE NEGATIVE [facility] CenterUrine benzodiazepines detection by screening ygzkmk1953-13-54 12:25:00* Test Item Value Reference Range Interpretation Comments Urine Benzodiazepines Screen (test code = 37395-8) NEGATIVE NEG ATIVE [facility] CenterU[facility] cocaine measurement (mass/volume) 2020-04-07 12:25:00* Test Item Value Reference Range Interpretation Comments Urine Cocaine Screen (test code = 3398-5) NEGATIVE NEGATIVE [facility] CenterUrine cannabinoids detection by screening npsovz2971-97-07 12:25:00* Test Item Value Reference Range Interpretation Comments Urine Cannabinoids Screen (test code = 16758-1) NEGATIVE NEGATI VE THESE RESULTS ARE FOR MEDICAL TREATMENT ONLYTHIS REPORT CONTAINS UNCONFIR MED SCREENING RESULTS*POSITIVE RESULTS WILL BE CONFIRMED BY REFERENCE LAB UPON R EQUEST CUT-OFFDRUG CLASS CONCENTRATION ng/mLAmphetamines 1000Methamphetamines 1000Cocaine 300Opiate 300Phencyc lidine 25Cannabinoid 50Barbiturates 300Benzodiazepine 300Methadone 300[facility] methadone qjufce5741-81-52 12:25:00* Test Item Value Reference Range Interpretation Comments Urine Methadone Screen (test code = 66196-6) NEGATIVE NEGATIVE THESE RESULTS ARE FOR MEDICAL TREATMENT ONLYTHIS REPORT CONTAINS UNCONFIR MED SCREENING RESULTS*POSITIVE RESULTS WILL BE CONFIRMED BY REFERENCE LAB UPON R EQUEST CUT-OFFDRUG CLASS CONCENTRATION ng/mLAmphetamines 1000Methamphetamines 1000Cocaine Metabolite 300Opiate 300Phencyc lidine 25Cannabinoid 50Barbiturates 300Benzodiazepine 300Methadone 300[facility]Urine urobilinogen measurement by test strip (mass/volume)2020-04-07 12:25:00* Test Item Value Reference Range Interpretation Comments Urine Urobilinogen (test code = 15964-9) 8 0.2-1 [facility] CenterU[facility] total bilirubin measurement (mass/volume)2020-04-07 12:25:00* Test Item Value Reference Range Interpretation Comments Urine Bilirubin (test code = 1978-6) NEGATIVE NEGATIVE [facility] CenterUrine erythrocytes [place]8801-49-59 12:25:00* Test Item Value Reference Range Interpretation Comments Urine Blood (test code = 92365-2) NEGATIVE NEGATIVE [facility] CenterAutomated urine sediment leukocyte count by microscopy (number/high power field)2020-04-07 12:25:00* Test Item Value Reference Range Interpretation Comments Urine WBC (test code = 5821-4) 0-5 0-5 [facility] CenterErythrocytes detection in urine sediment by light sthzclyewj9297-31-07 12:25:00* Test Item Value Reference Range Interpretation Comments Urine RBC (test code = 01783-4) 0-5 0-5 [facility] CenterBacteria detection in urine sediment by light kkqlddjntj8659-71-90 12:25:00* Test Item Value Reference Range Interpretation Comments Urine Bacteria (test code = 71435-3) RARE NONE [facility] CenterEpithelial cells detection in urine sediment by light alplnulmkr1732-57-36 12:25:00* Test Item Value Reference Range Interpretation Comments Urine Epithelial Cells (test code = 21578-6) RARE NONE [facility] CenterUrine color vpvuezvfnempm2332-75-10 12:25:00* Test Item Value Reference Range Interpretation Comments Urine Color (test code = 5778-6) YELLOW YELLOW [facility] CenterUrine gpcnsce1045-45-59 12:25:00* Test Item Value Reference Range Interpretation Comments Urine Clarity (test code = 51763-0) CLEAR CLEAR [facility]pecific [facility] Urine by Test strip 2020-04-07 12:25:00* Test Item Value Reference Range Interpretation Comments Urine Specific [place] (test code = 5811-5) 1.025 1.010-1.02 5 [facility] CenterU[facility] pH measurement by automated test csvcl9282-03-95 12:25:00* Test Item Value Reference Range Interpretation Comments Urine pH (test code = 96947-1) 6.5 5-7 [facility] CenterUrine leukocyte esterase detection by ygrkstny8322-64-27 12:25:00* Test Item Value Reference Range Interpretation Comments Urine Leukocyte Esterase (test code = 5799-2) NEGATIVE NEGATIVE [facility] CenterUrine nitrite okmunlqgi3462-48-19 12:25:00* Test Item Value Reference Range Interpretation Comments Urine Nitrite (test code = 34779-6) NEGATIVE NEGATIVE [facility] CenterUrine protein measurement by test strip (mass/volume)2020-04-07 12:25:00* Test Item Value Reference Range Interpretation Comments Urine Protein (test code = 5804-0) NEGATIVE NEGATIVE [facility] CenterUrine glucose qlswrcoap9574-39-38 12:25:00* Test Item Value Reference Range Interpretation Comments Urine Glucose (UA) (test code = 2349-9) NEGATIVE NEGATIVE [facility] CenterUrine ketones detection by automated test afdxc7128-37-99 12:25:00* Test Item Value Reference Range Interpretation Comments Urine Ketones (test code = 41243-7) NEGATIVE NEGATIVE [facility] CenterUrine opiates screening wghf9957-23-09 12:25:00* Test Item Value Reference Range Interpretation Comments Urine Opiates Screen (test code = 47147-1) NEGATIVE NEGATIVE ALL TESTS PERFORMED MANUALLY ON cloud.IQ TOX/SEE TESTP[facility] Medical CenterBarbiturates screen, boank8098-33-71 12:25:00* Test Item Value Reference Range Interpretation Comments Urine Barbiturates Screen (test code = 042865957) NEGATIVE NEGA TIVE [facility] CenterUrine phencyclidine detection by screening leousr4713-86-89 12:25:00* Test Item Value Reference Range Interpretation Comments Urine Phencyclidine Screen (test code = 53142-0) NEGATIVE NEGAT RAUDEL [facility] CenterUrine amphetamines detection by screen method > 1000 ng/vU7817-04-14 12:25:00* Test Item Value Reference Range Interpretation Comments Urine Amphetamines Screen (test code = 56965-1) NEGATIVE NEGATI VE [facility] CenterFluoroscopic procedure less than one hour wbvshjww6741-32-68 12:25:00* Test Item Value Reference Range Interpretation Comments Urine Methamphetamines Screen (test code = Urine Metha mphetamines Screen) NEGATIVE NEGATIVE [facility] CenterUrine benzodiazepines detection by screening esjwuu0030-37-87 12:25:00* Test Item Value Reference Range Interpretation Comments Urine Benzodiazepines Screen (test code = 12869-8) NEGATIVE NEG ATIVE [facility] CenterUrine cocaine measurement (mass/volume) 2020-04-07 12:25:00* Test Item Value Reference Range Interpretation Comments Urine Cocaine Screen (test code = 3398-5) NEGATIVE NEGATIVE [facility] CenterUrine cannabinoids detection by screening cqgigp0858-02-72 12:25:00* Test Item Value Reference Range Interpretation Comments Urine Cannabinoids Screen (test code = 49186-0) NEGATIVE NEGATI VE THESE RESULTS ARE FOR MEDICAL TREATMENT ONLYTHIS REPORT CONTAINS UNCONFIR MED SCREENING RESULTS*POSITIVE RESULTS WILL BE CONFIRMED BY REFERENCE LAB UPON R EQUEST CUT-OFFDRUG CLASS CONCENTRATION ng/mLAmphetamines 1000Methamphetamines 1000Cocaine 300Opiate 300Phencyc lidine 25Cannabinoid 50Barbiturates 300Benzodiazepine 300Methadone 300[facility] methadone rbitml6998-88-32 12:25:00* Test Item Value Reference Range Interpretation Comments Urine Methadone Screen (test code = 13720-8) NEGATIVE NEGATIVE THESE RESULTS ARE FOR MEDICAL TREATMENT ONLYTHIS REPORT CONTAINS UNCONFIR MED SCREENING RESULTS*POSITIVE RESULTS WILL BE CONFIRMED BY REFERENCE LAB UPON R EQUEST CUT-OFFDRUG CLASS CONCENTRATION ng/mLAmphetamines 1000Methamphetamines 1000Cocaine Metabolite 300Opiate 300Phencyc lidine 25Cannabinoid 50Barbiturates 300Benzodiazepine 300Methadone 300[facility] CenterUrine urobilinogen measurement by test strip (mass/volume)2020-04-07 12:25:00* Test Item Value Reference Range Interpretation Comments Urine Urobilinogen (test code = 01589-0) 8 0.2-1 [facility] CenterU[facility] total bilirubin measurement (mass/volume)2020-04-07 12:25:00* Test Item Value Reference Range Interpretation Comments Urine Bilirubin (test code = 1978-6) NEGATIVE NEGATIVE [facility] CenterUrine erythrocytes fnxqgfoef0667-98-96 12:25:00* Test Item Value Reference Range Interpretation Comments Urine Blood (test code = 74851-7) NEGATIVE NEGATIVE [facility] CenterAutomated urine sediment leukocyte count by microscopy (number/high power field)2020-04-07 12:25:00* Test Item Value Reference Range Interpretation Comments Urine WBC (test code = 5821-4) 0-5 0-5 [facility] CenterErythrocytes detection in urine sediment by light gdnhtqojly7104-62-37 12:25:00* Test Item Value Reference Range Interpretation Comments Urine RBC (test code = 07605-2) 0-5 0-5 [facility] CenterBacteria detection in urine sediment by light ljzwemvquc4353-27-84 12:25:00* Test Item Value Reference Range Interpretation Comments Urine Bacteria (test code = 26850-7) RARE NONE [facility] CenterEpithelial cells detection in urine sediment by light ojikshwppp6658-90-57 12:25:00* Test Item Value Reference Range Interpretation Comments Urine Epithelial Cells (test code = 12784-1) RARE NONE [facility] CenterUrine opiates screening sqgh1975-83-21 12:25:00* Test Item Value Reference Range Interpretation Comments Urine Opiates Screen (test code = 68807-3) NEGATIVE NEGATIVE ALL TESTS PERFORMED MANUALLY ON cloud.IQ TOX/SEE TESTP[facility] CenterBarbiturates screen, fkobc0889-09-40 12:25:00* Test Item Value Reference Range Interpretation Comments Urine Barbiturates Screen (test code = 099944950) NEGATIVE NEGA TIVE [facility] CenterUrine phencyclidine detection by screening slgzwp8735-87-85 12:25:00* Test Item Value Reference Range Interpretation Comments Urine Phencyclidine Screen (test code = 63363-6) NEGATIVE NEGAT RAUDEL [facility] CenterUrine amphetamines detection by screen method > 1000 ng/eV5432-97-52 12:25:00* Test Item Value Reference Range Interpretation Comments Urine Amphetamines Screen (test code = 48747-4) NEGATIVE NEGATI VE [facility] CenterFluoroscopic procedure less than one hour jybhmxja7846-87-96 12:25:00* Test Item Value Reference Range Interpretation Comments Urine Methamphetamines Screen (test code = Urine Metha mphetamines Screen) NEGATIVE NEGATIVE [facility] CenterUrine benzodiazepines detection by screening awqwui6736-23-48 12:25:00* Test Item Value Reference Range Interpretation Comments Urine Benzodiazepines Screen (test code = 63773-2) NEGATIVE NEG ATIVE [facility] CenterUrine cocaine measurement (mass/volume) 2020-04-07 12:25:00* Test Item Value Reference Range Interpretation Comments Urine Cocaine Screen (test code = 3398-5) NEGATIVE NEGATIVE [facility] CenterUrine cannabinoids detection by screening vhexos2080-93-14 12:25:00* Test Item Value Reference Range Interpretation Comments Urine Cannabinoids Screen (test code = 34074-4) NEGATIVE NEGATI VE THESE RESULTS ARE FOR MEDICAL TREATMENT ONLYTHIS REPORT CONTAINS UNCONFIR MED SCREENING RESULTS*POSITIVE RESULTS WILL BE CONFIRMED BY REFERENCE LAB UPON R EQUEST CUT-OFFDRUG CLASS CONCENTRATION ng/mLAmphetamines 1000Methamphetamines 1000Cocaine 300Opiate 300Phencyc lidine 25Cannabinoid 50Barbiturates 300Benzodiazepine 300Methadone 300[facility] methadone dezlyt8284-75-39 12:25:00* Test Item Value Reference Range Interpretation Comments Urine Methadone Screen (test code = 79642-5) NEGATIVE NEGATIVE THESE RESULTS ARE FOR MEDICAL TREATMENT ONLYTHIS REPORT CONTAINS UNCONFIR MED SCREENING RESULTS*POSITIVE RESULTS WILL BE CONFIRMED BY REFERENCE LAB UPON R EQUEST CUT-OFFDRUG CLASS CONCENTRATION ng/mLAmphetamines 1000Methamphetamines 1000Cocaine Metabolite 300Opiate 300Phencyc lidine 25Cannabinoid 50Barbiturates 300Benzodiazepine 300Methadone 300[facility] CenterUrine opiates screening juvi1187-30-67 12:25:00* Test Item Value Reference Range Interpretation Comments Urine Opiates Screen (test code = 74020-5) NEGATIVE NEGATIVE ALL TESTS PERFORMED MANUALLY ON BIORAD TOX/SEE TESTP[facility] CenterBarbiturates screen, uvuhc9695-14-03 12:25:00* Test Item Value Reference Range Interpretation Comments Urine Barbiturates Screen (test code = 404292036) NEGATIVE NEGA TIVE [facility] CenterUrine phencyclidine detection by screening dgkrsm7623-64-75 12:25:00* Test Item Value Reference Range Interpretation Comments Urine Phencyclidine Screen (test code = 73914-3) NEGATIVE NEGAT RAUDEL [facility] CenterUrine amphetamines detection by screen method > 1000 ng/mT3244-07-38 12:25:00* Test Item Value Reference Range Interpretation Comments Urine Amphetamines Screen (test code = 99455-7) NEGATIVE NEGATI VE [facility] CenterFluoroscopic procedure less than one hour kcbashfb4975-24-38 12:25:00* Test Item Value Reference Range Interpretation Comments Urine Methamphetamines Screen (test code = Urine Metha mphetamines Screen) NEGATIVE NEGATIVE [facility] CenterUrine benzodiazepines detection by screening lmdlce9213-45-08 12:25:00* Test Item Value Reference Range Interpretation Comments Urine Benzodiazepines Screen (test code = 86695-8) NEGATIVE NEG ATIVE [facility] CenterUrine cocaine measurement (mass/volume) 2020-04-07 12:25:00* Test Item Value Reference Range Interpretation Comments Urine Cocaine Screen (test code = 3398-5) NEGATIVE NEGATIVE [facility] CenterUrine cannabinoids detection by screening blacyv3879-43-42 12:25:00* Test Item Value Reference Range Interpretation Comments Urine Cannabinoids Screen (test code = 23427-1) NEGATIVE NEGATI VE THESE RESULTS ARE FOR MEDICAL TREATMENT ONLYTHIS REPORT CONTAINS UNCONFIR MED SCREENING RESULTS*POSITIVE RESULTS WILL BE CONFIRMED BY REFERENCE LAB UPON R EQUEST CUT-OFFDRUG CLASS CONCENTRATION ng/mLAmphetamines 1000Methamphetamines 1000Cocaine 300Opiate 300Phencyc lidine 25Cannabinoid 50Barbiturates 300Benzodiazepine 300Methadone 300[facility]stUrine methadone ifmima7909-57-88 12:25:00* Test Item Value Reference Range Interpretation Comments Urine Methadone Screen (test code = 55781-4) NEGATIVE NEGATIVE THESE RESULTS ARE FOR MEDICAL TREATMENT ONLYTHIS REPORT CONTAINS UNCONFIR MED SCREENING RESULTS*POSITIVE RESULTS WILL BE CONFIRMED BY REFERENCE LAB UPON R EQUEST CUT-OFFDRUG CLASS CONCENTRATION ng/mLAmphetamines 1000Methamphetamines 1000Cocaine Metabolite 300Opiate 300Phencyc lidine 25Cannabinoid 50Barbiturates 300Benzodiazepine 300Methadone 300[facility]stCT BRAIN [id number] 12:01:00 [facility] [address] [place] [address] Patient Name: AMAURY CONTE MR #: [id number] : 1945 Age/Sex: 74/F Req #: [id number] Adm Physician: Ordered by: NEL BONNER MD Report #: [id number] Location: Room/Bed: Procedure: [id number] CT/CT BRAIN WO Exam Date: 04/07/20 Exam Time: 1120 REPORT STATUS: Signed History:Nena Shepherd parispage studies: Head CT on 11/10/2018 Technique: Axial [...] (aPTT) in platelet poor plasma by coagulation fcndo5886-79-06 11:55:00* Test Item Value Reference Range Interpretation Comments Activated Partial Thromboplast Time (test code = 13615-0) 42.7 23.8-35.5 [facility] CenterFluoroscopic procedure less than one hour bdtijbeq2689-06-51 11:55:00* Test Item Value Reference Range Interpretation Comments Lactic Acid Level (test code = Lactic Acid Level) 1.9 0.5- 2.0 [facility] CenterFree thyroxine oasqr6854-19-56 11:55:00* Test Item Value Reference Range Interpretation Comments Free Thyroxine Index (test code = 70694-1) 3.3708 1.4-3.8 [facility] Hospitalerum or plasma thyroxine (T4) measurement (mass/volume)2020-04-07 11:55:00* Test Item Value Reference Range Interpretation Comments Thyroxine (T4) (test code = 3026-2) 9.45 4.5-10.9 Our current method for Total T4 is not recommended for use as the only marker fo r evaluating patients for thyroid disorders.[facility] Hospitalerum or plasma triiodothyronine resin uptake (T3RU)2020-04-07 11:55:00* Test Item Value Reference Range Interpretation Comments Triiodothyronine (T3) Uptake (test code = 3050-2) 35.67 22.5 -37.0 [facility] Hospitalerum or plasma thyrotropin measurement by detection limit <= 0.005 miu/l (units/volume)2020-04-07 11:55:00* Test Item Value Reference Range Interpretation Comments Thyroid Stimulating Hormone (TSH) (test code = 93815-2) 4.627 0.350-4.940 [facility] CenterBlood byiamct8435-90-37 11:55:00* Test Item Value Reference Range Interpretation Comments Blood Culture (test code = 62694542) NO GROWTH AFTER 48 HOURS [facility] CenterActivated partial thromboplastin time (aPTT) in platelet poor plasma by coagulation naevi6168-06-88 11:55:00* Test Item Value Reference Range Interpretation Comments Activated Partial Thromboplast Time (test code = 89485-0) 42.7 23.8-35.5 [facility] CenterFluoroscopic procedure less than one hour xebfsgls1822-01-91 11:55:00* Test Item Value Reference Range Interpretation Comments Lactic Acid Level (test code = Lactic Acid Level) 1.9 0.5- 2.0 [facility] CenterFree thyroxine ecmje8354-42-27 11:55:00* Test Item Value Reference Range Interpretation Comments Free Thyroxine Index (test code = 95017-7) 3.3708 1.4-3.8 [facility] Hospitalerum or plasma thyroxine (T4) measurement (mass/volume)2020-04-07 11:55:00* Test Item Value Reference Range Interpretation Comments Thyroxine (T4) (test code = 3026-2) 9.45 4.5-10.9 Our current method for Total T4 is not recommended for use as the only marker fo r evaluating patients for thyroid disorders.[facility] Hospitalerum or plasma triiodothyronine resin uptake (T3RU)2020-04-07 11:55:00* Test Item Value Reference Range Interpretation Comments Triiodothyronine (T3) Uptake (test code = 3050-2) 35.67 22.5 -37.0 [facility] Hospitalerum or plasma thyrotropin measurement by detection limit <= 0.005 miu/l (units/volume)2020-04-07 11:55:00* Test Item Value Reference Range Interpretation Comments Thyroid Stimulating Hormone (TSH) (test code = 32504-6) 4.627 0.350-4.940 [facility] CenterBlood jrgmdwi9020-82-63 11:55:00* Test Item Value Reference Range Interpretation Comments Blood Culture (test code = 53374056) NO GROWTH AFTER 5 DAYS, FINAL REPORT [facility] CenterFree thyroxine dovpf8490-00-65 11:55:00* Test Item Value Reference Range Interpretation Comments Free Thyroxine Index (test code = 20493-5) 3.3708 1.4-3.8 [facility] Hospitalerum or plasma thyroxine (T4) measurement (mass/volume)2020-04-07 11:55:00* Test Item Value Reference Range Interpretation Comments Thyroxine (T4) (test code = 3026-2) 9.45 4.5-10.9 Our current method for Total T4 is not recommended for use as the only marker fo r evaluating patients for thyroid disorders.[facility] Hospitalerum or plasma triiodothyronine resin uptake (T3RU)2020-04-07 11:55:00* Test Item Value Reference Range Interpretation Comments Triiodothyronine (T3) Uptake (test code = 3050-2) 35.67 22.5 -37.0 [facility] Hospitalerum or plasma thyrotropin measurement by detection limit <= 0.005 miu/l (units/volume)2020-04-07 11:55:00* Test Item Value Reference Range Interpretation Comments Thyroid Stimulating Hormone (TSH) (test code = 38871-5) 4.627 0.350-4.940 [facility] CenterFree thyroxine wxdnw6855-99-18 11:55:00* Test Item Value Reference Range Interpretation Comments Free Thyroxine Index (test code = 86596-9) 3.3708 1.4-3.8 [facility] Hospitalerum or plasma thyroxine (T4) measurement (mass/volume)2020-04-07 11:55:00* Test Item Value Reference Range Interpretation Comments Thyroxine (T4) (test code = 3026-2) 9.45 4.5-10.9 Our current method for Total T4 is not recommended for use as the only marker fo r evaluating patients for thyroid disorders.[facility] Hospitalerum or plasma triiodothyronine resin uptake (T3RU)2020-04-07 11:55:00* Test Item Value Reference Range Interpretation Comments Triiodothyronine (T3) Uptake (test code = 3050-2) 35.67 22.5 -37.0 [facility] CenterFree thyroxine elhwk3903-69-64 11:55:00* Test Item Value Reference Range Interpretation Comments Free Thyroxine Index (test code = 33859-3) 3.3708 1.4-3.8 [facility] Hospitalerum or plasma thyroxine (T4) measurement (mass/volume)2020-04-07 11:55:00* Test Item Value Reference Range Interpretation Comments Thyroxine (T4) (test code = 3026-2) 9.45 4.5-10.9 Our current method for Total T4 is not recommended for use as the only marker fo r evaluating patients for thyroid disorders.[facility] Hospitalerum or plasma triiodothyronine resin uptake (T3RU)2020-04-07 11:55:00* Test Item Value Reference Range Interpretation Comments Triiodothyronine (T3) Uptake (test code = 3050-2) 35.67 22.5 -37.0 [facility] CenterGLUBED2020-03-26 08:44:00* Test Item Value Reference Range Interpretation Comments GLUBED (test code = GLUBED) 128 mg/dL 74-106 H Performed by certified box covering machine operator at [facility] BASIC METABOLIC QIYHU6276-11-30 03:36:00* Test Item Value Reference Range Interpretation [...] CA) 8.6 mg/dL 8.5-10.1 N BASIC METABOLIC IEPSR5141-71-09 03:32:00* Test Item Value Reference Range Interpretation [...] code = CA) mg/dL 8.5-10.1 CBC W/AUTO OEMN3773-42-54 03:19:00* Test Item Value Reference Range Interpretation [...] (test code = MDIFF) NO CBC W/AUTO [id number] 03:17:00* Test Item Value Reference Range Interpretation [...] # (test code = BA#) K/mm3 0.0-0.2 [id number] 21:19:00* Test Item Value Reference Range Interpretation Comments GLUBED (test code = GLUBED) 215 mg/dL 74-106 H Performed by certified box covering machine operator at [facility] ZBNWWC3843-21-23 15:38:00* Test Item Value Reference Range Interpretation Comments GLUBED (test code = GLUBED) 227 mg/dL 74-106 H Performed by certified box covering machine operator at [facility] [id number] 11:50:00* Test Item Value Reference Range Interpretation Comments GLUBED (test code = GLUBED) 277 mg/dL 74-106 H Performed by certified box covering machine operator at [facility] GDQUVZ6508-26-66 08:17:00* Test Item Value Reference Range Interpretation Comments GLUBED (test code = GLUBED) 180 mg/dL 74-106 H Performed by certified box covering machine operator at [facility] [id number] 20:14:00* Test Item Value Reference Range Interpretation Comments GLUBED (test code = GLUBED) 208 mg/dL 74-106 H Performed by certified box covering machine operator at [facility] [id number] 19:07:00* Test Item Value Reference Range Interpretation Comments GLUBED (test code = GLUBED) 169 mg/dL 74-106 H Performed by certified box covering machine operator at [facility] MWLKJK4355-38-00 13:04:00* Test Item Value Reference Range Interpretation Comments GLUBED (test code = GLUBED) 190 mg/dL 74-106 H Performed by certified box covering machine operator at [facility] [id number] 08:23:00* Test Item Value Reference Range Interpretation Comments GLUBED (test code = GLUBED) 143 mg/dL 74-106 H Performed by certified box covering machine operator at [facility] COMPREHENSIVE METABOLIC [id number] 06:46:00* Test Item Value Reference Range Interpretation [...] due to change in reagent. COMPREHENSIVE METABOLIC [id number] 06:45:00* Test Item Value Reference Range Interpretation [...] due to change in reagent. CBC W/AUTO [id number] 05:44:00* Test Item Value Reference Range Interpretation [...] (test code = MDIFF) NO CBC W/AUTO [id number] 05:37:00* Test Item Value Reference Range Interpretation [...] # (test code = BA#) K/mm3 0.0-0.2 [id number] 20:53:00* Test Item Value Reference Range Interpretation Comments GLUBED (test code = GLUBED) 226 mg/dL 74-106 H Performed by certified box covering machine operator at [facility] OBGNQF7179-48-67 17:24:00* Test Item Value Reference Range Interpretation Comments GLUBED (test code = GLUBED) 209 mg/dL 74-106 H Performed by certified box covering machine operator at [facility] [id number] 12:37:00* Test Item Value Reference Range Interpretation Comments GLUBED (test code = GLUBED) 179 mg/dL 74-106 H Performed by certified box covering machine operator at [facility] TKHUHI0866-60-60 08:06:00* Test Item Value Reference Range Interpretation Comments GLUBED (test code = GLUBED) 144 mg/dL 74-106 H Performed by certified box covering machine operator at [facility] [id number] 04:55:00* Test Item Value Reference Range Interpretation Comments GLUBED (test code = GLUBED) 182 mg/dL 74-106 H Performed by certified box covering machine operator at [facility] COMPREHENSIVE METABOLIC [id number] 04:30:00* Test Item Value Reference Range Interpretation [...] due to change in reagent. CBC W/AUTO [id number] 03:59:00* Test Item Value Reference Range Interpretation [...] (test code = MDIFF) NO CBC W/AUTO [id number] 03:55:00* Test Item Value Reference Range Interpretation [...] # (test code = BA#) K/mm3 0.0-0.2 [id number] 19:48:00* Test Item Value Reference Range Interpretation Comments GLUBED (test code = GLUBED) 180 mg/dL 74-106 H Performed by certified box covering machine operator at [facility] MLKVCH2618-91-54 15:47:00* Test Item Value Reference Range Interpretation Comments GLUBED (test code = GLUBED) 207 mg/dL 74-106 H Performed by certified box covering machine operator at [facility] [id number] 12:22:00* Test Item Value Reference Range Interpretation Comments GLUBED (test code = GLUBED) 167 mg/dL 74-106 H Performed by certified box covering machine operator at [facility] [id number] 08:05:00* Test Item Value Reference Range Interpretation Comments GLUBED (test code = GLUBED) 112 mg/dL 74-106 H Performed by certified box covering machine operator at [facility] COMPREHENSIVE METABOLIC [id number] 05:27:00* Test Item Value Reference Range Interpretation [...] due to change in reagent. COMPREHENSIVE METABOLIC [id number] 05:19:00* Test Item Value Reference Range Interpretation [...] code = ALKP) IUnit/L 45-117 CBC W/AUTO [id number] 04:57:00* Test Item Value Reference Range Interpretation [...] (test code = MDIFF) NO CBC W/AUTO [id number] 04:49:00* Test Item Value Reference Range Interpretation [...] # (test code = BA#) K/mm3 0.0-0.2 [id number] 21:21:00* Test Item Value Reference Range Interpretation Comments GLUBED (test code = GLUBED) 162 mg/dL 74-106 H Performed by certified box covering machine operator at [facility] [id number] 18:39:00* Test Item Value Reference Range Interpretation Comments GLUBED (test code = GLUBED) 233 mg/dL 74-106 H Performed by certified box covering machine operator at [facility] - XR CHEST 1 [id number] 16:47:00 FAX: Zaira Beltran MD [phone] [place]: St: ADM Name: AMAURY MAZA [facility] [place] : [birth year] Age/S: 74/F [address] [facility] Unit #: [id number] Loc: V.[address] [place] [address] Phys: Zaira Woodard MD Acct: [id number] Dis Date: Status: ADM IN PHONE #: [phone] Exam Date: 01/06/2020 1611 FAX #: [phone] Reason: SOB EXAMS: CPT CODE: [id number] XR CHEST 1 V 60603 HISTORY: Shortness of breath and d yspnea. COMPARISON: March 17, 2016. Location: TH. No acute infiltrates, effusion or congestion is noted. Suboptimal inspiration. Dependent changes. Left ICD with the lead in the right v entricle. Moderate cardiomegaly. IMPRESSION: No acute infiltrates, effusion or congestion. Electronically Lilly d by Ammy Castrejon on 01/06/2020 at 1647 Reported an d signed by: Reynold Castrejon M.D. CC: Zaira Woodard MD Technologist: Vesna Lincoln) Trnscrd Date/Time/By: 01/06/2020 (1646) : By: Enid H4 Orig Print D/T: S: 01/06/2020 (2674) PAGE 1 Signed Report GLUBED 2020-01-06 16:19:00* Test Item Value Reference Range Interpretation Comments GLUBED (test code = GLUBED) 192 mg/dL 74-106 H Performed by certified box covering machine operator at [facility] [id number] 12:12:00* Test Item Value Reference Range Interpretation Comments GLUBED (test code = GLUBED) 112 mg/dL 74-106 H Performed by certified box covering machine operator at [facility] [id number] 07:42:00* Test Item Value Reference Range Interpretation Comments GLUBED (test code = GLUBED) 105 mg/dL 74-106 N Performed by certified box covering machine operator at [facility] COMPREHENSIVE METABOLIC [id number] 06:08:00* Test Item Value Reference Range Interpretation [...] due to change in reagent. COMPREHENSIVE METABOLIC [id number] 05:58:00* Test Item Value Reference Range Interpretation [...] code = ALKP) IUnit/L 45-117 CBC W/AUTO [id number] 05:31:00* Test Item Value Reference Range Interpretation [...] (test code = MDIFF) NO CBC W/AUTO [id number] 05:30:00* Test Item Value Reference Range Interpretation [...] (test code = BA#) K/mm3 0.0-0.2 VITAMIN [id number] 01:16:00* Test Item Value Reference Range Interpretation Comments VITAMIN B12 (test code = VITB12) 823 pg/mL 193-986 N FOLIC [id number] 01:16:00* Test Item Value Reference Range Interpretation Comments FOLIC ACID (test code = FOL) 18.7 ng/mL 3.10-17.50 H [id number] 00:53:00* Test Item Value Reference Range Interpretation Comments TROPONIN-I (test code = TROPI) <0.015 ng/mL 0-0.045 N URINALYSIS [id number] 23:28:00* Test Item Value Reference Range Interpretation [...] BACU) NONE SEEN #/HPF NONE Urine Source? IerqpquuGZMXRQUX-[id number] 22:41:00* Test Item Value Reference Range Interpretation Comments TROPONIN-I (test code = TROPI) <0.015 ng/mL 0-0.045 N [id number] 21:53:00* Test Item Value Reference Range Interpretation Comments GLUBED (test code = GLUBED) 133 mg/dL 74-106 H Performed by certified box covering machine operator at [facility] COMPREHENSIVE METABOLIC [id number] 19:55:00* Test Item Value Reference Range Interpretation [...] reference range due to change in reagent. [id number] 19:55:00* Test Item Value Reference Range Interpretation Comments PHOSPHORUS (test code = PHOS) 2.3 mg/dL 2.5-4.9 L [id number] 19:55:00* Test Item Value Reference Range Interpretation Comments MAGNESIUM (test code = MAG) 2.0 mg/dL 1.8-2.4 N THYROID STIMULATING [id number] 19:55:00* Test Item Value Reference Range Interpretation Comments THYROID STIMULATING HORMONE (test code = TSH) 0.406 uIU/mL 0.36-3.7 4 N TSH REFERENCE RANGES: EUTHYROID: 0.35 - 4.3 mIU/mL HYPO : > 5.5 mIU/mL HYPER : < 0.35 mIU/mL [id number]-[id number] 19:50:00* Test Item Value Reference Range Interpretation [...] result is a direct measurement.========= COMPREHENSIVE METABOLIC [id number] 19:38:00* Test Item Value Reference Range Interpretation [...] TOTAL (test code = ALKP) IUnit/L 45-117 [id number] 19:38:00* Test Item Value Reference Range Interpretation Comments PHOSPHORUS (test code = PHOS) mg/dL 2.5-4.9 KDNBGECTQ0242-86-87 19:38:00* Test Item Value Reference Range Interpretation Comments MAGNESIUM (test code = MAG) mg/dL 1.8-2.4 THYROID STIMULATING [id number] 19:38:00* Test Item Value Reference Range Interpretation Comments THYROID STIMULATING HORMONE (test code = TSH) uIU/mL 0.36-3.7 4 [id number] 19:32:00* Test Item Value Reference Range Interpretation Comments GLYCOSYLATED HEMOGLOBIN (HA1C) (test code = GLYHGB) 5.4 % HbA1 SUGGESTED DIAGNOSIS: HbA1C (%) Diabetic >6.4Prediabetes 5.7 - 6.4Normal <5.7 ESTIMATED AVERAGE GLUCOSE (test code = EAG) 108 MG/DL - CT L-SPINE W/O [id number] 19:27:00 Name: AMAURY CONTE [facility] [place] : 1945 Age/S: 74 / F [address] [facility] Unit #: [id number] Loc: [place] [address] Phys: Zaira Woodard MD Acct: [id number] Dis Date: Status: ADM IN PHONE #: [phone] Exam Date: 01/05/20201855 FAX #: [phone] Reason: Weakness B/L LE EXAMS: CPT CODE: [id number] CT L-SPINE W/O CONTRAST 19730 HISTORY: Bilateral lower extremity weakness. COMPARISON: None [...] Multilevel sp ondylosis as described above. at 1926 Reported and signed by: Reynold Castrejon M.D. PAGE 1 Signed Report (CONTINUED) Name: MAAURY CONTE [facility] [place] : 1945 Age[facility]S: 74 [facility] [address] [facility] [id number] Loc: [place] [address] Phys: Zaira Woodard MD Acct : [id number] Dis Date: Status: ADM IN PHONE #: [phone] Exam Date: 01/05/20201855 FAX #: [phone] Reason: Weakness B/L LE EXAMS: CPT CODE: [id number] L-SPINE W/O CONTRAST 27203 <Continued> CC: Zaira Woodard MD Technologist:DIEGO PEREZ; CTDI: DLP: Trnscb Date/Time: 01/05/2020 (1926) t.SDR.TH4 Or ig Print D/T: S: 01/05/2020 (1929) PAGE 2 Signed Rep ort - CT C-SPINE W/O [id number] 19:16:00 Name: AMAURY CONTE [facility] [place] : 1945 Age[facility]S: 74 [facility] [address] [facility]: [id number] Loc: [place] [address] Phys: Reina Woodard MD Acct: [id number] Di s Date: Status: ADM IN PHONE #: Exam Date: 01/05/20201851 FAX #: Reason: Parasthesias B/L UE EXAMS: CPT CODE: [id number] CT C-SPINE W/ O CONTRAST 25930 HISTORY: Generalized weak ness and paresthesia. COMPARISON: [...] foraminal stenosis. Correlate with radicular symptoms. at 1916 Reported and signed by: Reynold Castrejon M.D. PAGE 1 Signed Report (CONTINUED) Name: GENO CONTE [facility] [place] : 1945 Age/ S: 74 / F [address] [facility] Unit #: [id number] Loc: [place] [address] Phys: Zaira Woodard MD Acct: [id number] Dis Date: Status: ADM IN PHONE #: [phone] E xam Date: 01/05/2020 185 FAX #: [phone] Reason: Parasthesias B/L UE EXAMS: CPT CODE: [id number] CT C-SPINE W/O CONTRAST 36005 <Continued> CC: Zaira Woodard MD Technologist:DIEGO TRAN CT; CTDI: DLP: Trnscb Date/Time: 01/05/2020 (1915) tSIDNEYR.[email or web address] Orig Print D/T: S: 01/05/2020 (1919) PAGE 2 Signed Report PROTHROMBIN [id number] 19:07:00* Test Item Value Reference Range Interpretation [...] (test code = MDIFF) NO CBC W/AUTO [id number] 18:55:00* Test Item Value Reference Range Interpretation [...] # (test code = BA#) K/mm3 0.0-0.2 [id number] 16:43:00* Test Item Value Reference Range Interpretation Comments GLUBED (test code = GLUBED) 78 mg/dL 74-106 N Performed by certified box covering machine operator at [facility] Bedside Ldckhmc6697-30-19 20:20:00* Test Item Value Reference Range Interpretation Comments Bedside Glucose (test code = 51932-0) 131 70-120 H Meter ID: [id number] Regional Medical CenterBedside Glucose 2018-11-11 20:20:00* Test Item Value Reference Range Interpretation Comments Bedside Glucose (test code = 72853-1) 131 70-120 H Meter ID: [id number] Regional Medical CenterCreatine Kinase MB 2018-11-11 04:05:00* Test Item Value Reference Range Interpretation Comments Creatine Kinase MB (test code = 38949-1) 0.80 0-5.0 [facility] CenterTroponin [id number] 04:05:00* Test Item Value Reference Range Interpretation Comments Troponin I (test code = VZY9904) 0.005 0-0.300 [facility] CenterCreatine Kinase [id number] 04:05:00* Test Item Value Reference Range Interpretation Comments Creatine Kinase MB (test code = 43329-8) 0.80 0-5.0 [facility] CenterTroponin [id number] 04:05:00* Test Item Value Reference Range Interpretation Comments Troponin I (test code = BKU3166) 0.005 0-0.300 [facility] CenterB-Type Natriuretic Knghmns5703-92-63 03:56:00* Test Item Value Reference Range Interpretation Comments B-Type Natriuretic Peptide (test code = 84786-0) 210.1 0-100 H [facility] CenterCreatine Xwsptp2558-65-69 03:56:00* Test Item Value Reference Range Interpretation Comments Creatine Kinase (test code = 2157-6) 37 29-168 [facility] CenterB-Type Natriuretic Crfdijs8812-38-90 03:56:00* Test Item Value Reference Range Interpretation Comments B-Type Natriuretic Peptide (test code = 96137-6) 210.1 0-100 H [facility] CenterCreatine Bgqviy4053-98-78 03:56:00* Test Item Value Reference Range Interpretation Comments Creatine Kinase (test code = 2157-6) 37 29-168 [facility] Ahotz0455-71-45 03:46:00* Test Item Value Reference Range Interpretation Comments Sodium Level (test code = 2951-2) 144 136-145 [facility] CenterPotassium Uwwzb3798-74-59 03:46:00* Test Item Value Reference Range Interpretation Comments Potassium Level (test code = 2823-3) 4.2 3.5-5.1 [facility] CenterChloride Tdedg3433-64-81 03:46:00* Test Item Value Reference Range Interpretation Comments Chloride Level (test code = 2075-0) 115 98-107 H [facility] CenterCarbon Dioxide Kiysq3148-43-70 03:46:00* Test Item Value Reference Range Interpretation Comments Carbon Dioxide Level (test code = 2028-9) 22 - [facility] CenterAnion Zgn9150-02-14 03:46:00* Test Item Value Reference Range Interpretation Comments Anion Gap (test code = 39472-0) 11.2 8-16 [facility] CenterBlood Urea Lpuwwddk9318-27-58 03:46:00* Test Item Value Reference Range Interpretation Comments Blood Urea Nitrogen (test code = 3094-0) 20 05-12 [facility] CenterCreatinine2019-01-25 03:46:00* Test Item Value Reference Range Interpretation Comments Creatinine (test code = 2160-0) 1.00 0.57-1.11 [facility] CenterBUN/Creatinine Qeijg3396-38-61 03:46:00* Test Item Value Reference Range Interpretation Comments BUN/Creatinine Ratio (test code = 3097-3) 04-11 [facility] CenterEstimat Glomerular Filtration Rate 2018-11-11 03:46:00* Test Item Value Reference Range Interpretation Comments Estimat Glomerular Filtration Rate (test code = 978827102) 54 >60 L Ranges were taken from the National Kidney Disease Education Program and the [facility] literature.Reference ranges:60 or greater: Glaikq44-48 ( for 3 consecutive months): Chronic kidney disease 15 or less: Kidney failurePampa Regional Medical CenterGlucose Oeuyx0710-19-66 03:46:00* Test Item Value Reference Range Interpretation Comments Glucose Level (test code = IHI9623) 89 74-118 [facility] CenterCalcium Pouem3786-83-58 03:46:00* Test Item Value Reference Range Interpretation Comments Calcium Level (test code = 75922-8) 9.0 8.4-10.2 [facility] CenterTotal Uxvlrgpfe8748-91-96 03:46:00* Test Item Value Reference Range Interpretation Comments Total Bilirubin (test code = 1975-2) 0.9 0.2-1.2 [facility] CenterAspartate Amino Transf (AST/SGOT) 2018-11-11 03:46:00* Test Item Value Reference Range Interpretation Comments Aspartate Amino Transf (AST/SGOT) (test code = Aspartate Amino Transf (AST/SGOT)) 34 5-34 [facility] CenterAlanine Aminotransferase (ALT/SGPT) 2018-11-11 03:46:00* Test Item Value Reference Range Interpretation Comments Alanine Aminotransferase (ALT/SGPT) (test code = 1742-6) 18 0-55 [facility] CenterTotal Abikutm2472-75-11 03:46:00* Test Item Value Reference Range Interpretation Comments Total Protein (test code = 2885-2) 6.1 6.5-8.1 L [facility] CenterAlbumin2019-01-25 03:46:00* Test Item Value Reference Range Interpretation Comments Albumin (test code = 1751-7) 2.9 3.5-5.0 L [facility] CenterGlobulin2019-01-25 03:46:00* Test Item Value Reference Range Interpretation Comments Globulin (test code = 77633-7) 3.2 2.3-3.5 [facility] CenterAlbumin/Globulin Miufx8958-48-92 03:46:00 * Test Item Value Reference Range Interpretation Comments Albumin/Globulin Ratio (test code = 1759-0) 0.9 0.8-2.0 [facility] CenterAlkaline Sgcbdxctoao0535-64-17 03:46:00* Test Item Value Reference Range Interpretation Comments Alkaline Phosphatase (test code = 6768-6) 87 40-150 [facility] CenterTriglycerides Ttmxe4301-99-42 03:46:00* Test Item Value Reference Range Interpretation Comments Triglycerides Level (test code = 2571-8) 86 0-149 [facility] CenterCholesterol Scahf5308-29-24 03:46:00* Test Item Value Reference Range Interpretation Comments Cholesterol Level (test code = 2093-3) 109 0-199 Less than 200 mg/dL Low Pskx094 - 239 mg/dL Borderline Terd554 m g/dl and greater High Risk [facility] CenterLDL Ntbqgolbihl2159-26-05 03:46:00* Test Item Value Reference Range Interpretation Comments LDL Cholesterol (test code = 2089-1) 55 60-130 L [facility] CenterHDL Jjyioybjdor4375-88-75 03:46:00* Test Item Value Reference Range Interpretation Comments HDL Cholesterol (test code = 2085-9) 37 40-60 L [facility] CenterCholesterol/HDL Mlill1473-78-86 03:46:00 * Test Item Value Reference Range Interpretation Comments Cholesterol/HDL Ratio (test code = 9830-1) 2.9 3.0-3.6 L [facility]odium Wdggx2924-09-63 03:46:00* Test Item Value Reference Range Interpretation Comments Sodium Level (test code = 2951-2) 144 136-145 [facility] CenterPotassium Cjzpd9096-49-56 03:46:00* Test Item Value Reference Range Interpretation Comments Potassium Level (test code = 2823-3) 4.2 3.5-5.1 [facility] CenterChloride Ushvb0950-39-84 03:46:00* Test Item Value Reference Range Interpretation Comments Chloride Level (test code = 2075-0) 115 98-107 H [facility] CenterCarbon Dioxide Wakza1763-49-61 03:46:00* Test Item Value Reference Range Interpretation Comments Carbon Dioxide Level (test code = 2028-9) 22 22-29 [facility] CenterAnion Hly9729-49-02 03:46:00* Test Item Value Reference Range Interpretation Comments Anion Gap (test code = 88416-9) 11.2 8-16 [facility] CenterBlood Urea Zbkxvtju8609-63-11 03:46:00* Test Item Value Reference Range Interpretation Comments Blood Urea Nitrogen (test code = 3094-0) 20 7-26 [facility] CenterCreatinine2019-01-25 03:46:00* Test Item Value Reference Range Interpretation Comments Creatinine (test code = 2160-0) 1.00 0.57-1.11 [facility] CenterBUN/Creatinine Rymke0318-12-79 03:46:00* Test Item Value Reference Range Interpretation Comments BUN/Creatinine Ratio (test code = 3097-3) 20 6-25 [facility] CenterEstimat Glomerular Filtration Rate 2018-11-11 03:46:00* Test Item Value Reference Range Interpretation Comments Estimat Glomerular Filtration Rate (test code = 437803226) 54 >60 L Ranges were taken from the National Kidney Disease Education Program and the [facility] Kidney Foundation literature.Reference ranges:60 or greater: Qdlguw23-34 ( for 3 consecutive months): Chronic kidney disease 15 or less: Kidney failureCHI Baylor Scott & White [facility] Center – HillcrestGlucose Ekosn4657-26-82 03:46:00* Test Item Value Reference Range Interpretation Comments Glucose Level (test code = GUD3749) 89 74-118 [facility] CenterCalcium Xywwg2951-28-72 03:46:00* Test Item Value Reference Range Interpretation Comments Calcium Level (test code = 04124-6) 9.0 8.4-10.2 [facility] CenterTotal Uvhhenwql0642-73-31 03:46:00* Test Item Value Reference Range Interpretation Comments Total Bilirubin (test code = 1975-2) 0.9 0.2-1.2 [facility] CenterAspartate Amino Transf (AST/SGOT) 2018-11-11 03:46:00* Test Item Value Reference Range Interpretation Comments Aspartate Amino Transf (AST/SGOT) (test code = Aspartate Amino Transf (AST/SGOT)) 34 5-34 [facility] CenterAlanine Aminotransferase (ALT/SGPT) 2018-11-11 03:46:00* Test Item Value Reference Range Interpretation Comments Alanine Aminotransferase (ALT/SGPT) (test code = 1742-6) 18 0-55 [facility] CenterTotal Okkewpz5078-63-52 03:46:00* Test Item Value Reference Range Interpretation Comments Total Protein (test code = 2885-2) 6.1 6.5-8.1 L [facility] CenterAlbumin2019-01-25 03:46:00* Test Item Value Reference Range Interpretation Comments Albumin (test code = 1751-7) 2.9 3.5-5.0 L [facility] CenterGlobulin2019-01-25 03:46:00* Test Item Value Reference Range Interpretation Comments Globulin (test code = 09059-7) 3.2 2.3-3.5 [facility] CenterAlbumin/Globulin Rlemc7230-26-90 03:46:00 * Test Item Value Reference Range Interpretation Comments Albumin/Globulin Ratio (test code = 1759-0) 0.9 0.8-2.0 [facility] CenterAlkaline Ncqgvilnpsc0428-70-39 03:46:00* Test Item Value Reference Range Interpretation Comments Alkaline Phosphatase (test code = 6768-6) 87 40-150 [facility] CenterTriglycerides Azube1679-16-86 03:46:00* Test Item Value Reference Range Interpretation Comments Triglycerides Level (test code = 2571-8) 86 0-149 [facility] CenterCholesterol Knjcm2847-12-16 03:46:00* Test Item Value Reference Range Interpretation Comments Cholesterol Level (test code = 2093-3) 109 0-199 Less than 200 mg/dL Low Vgvt696 - 239 mg/dL Borderline Nghq382 m g/dl and greater High Risk [facility] CenterLDL Tknbtuthuyn0612-43-27 03:46:00* Test Item Value Reference Range Interpretation Comments LDL Cholesterol (test code = 2089-1) 55 60-130 L [facility] CenterHDL Ujjenpxuepk3447-46-82 03:46:00* Test Item Value Reference Range Interpretation Comments HDL Cholesterol (test code = 2085-9) 37 40-60 L [facility] CenterCholesterol/HDL Hicwt9819-36-10 03:46:00 * Test Item Value Reference Range Interpretation Comments Cholesterol/HDL Ratio (test code = 9830-1) 2.9 3.0-3.6 L [facility] CenterHemoglobin A1c Xdcqqtf3195-68-74 03:36:00 * Test Item Value Reference Range Interpretation Comments Hemoglobin A1c Percent (test code = Hemoglobin A1c Percent) 5.9 4.0-7.0 [facility] CenterMagnesium Hjkto0411-76-66 03:36:00* Test Item Value Reference Range Interpretation Comments Magnesium Level (test code = 08731-5) 2.1 1.3-2.1 [facility] CenterHemoglobin A1c Qidllkr1458-43-31 03:36:00 * Test Item Value Reference Range Interpretation Comments Hemoglobin A1c Percent (test code = Hemoglobin A1c Percent) 5.9 4.0-7.0 [facility] CenterMagnesium Tzywm7292-53-71 03:36:00* Test Item Value Reference Range Interpretation Comments Magnesium Level (test code = 94908-1) 2.1 1.3-2.1 [facility] CenterWhite Blood Sxmvj4953-27-37 03:33:00* Test Item Value Reference Range Interpretation Comments White Blood Count (test code = 6690-2) 4.36 4.8-10.8 L [facility] CenterRed Blood Fjslt8014-99-87 03:33:00* Test Item Value Reference Range Interpretation Comments Red Blood Count (test code = 789-8) 3.85 3.6-5.1 [facility] CenterHemoglobin2019-01-25 03:33:00* Test Item Value Reference Range Interpretation Comments Hemoglobin (test code = 05222-2) 12.7 12.0-16.0 [facility] CenterHematocrit2019-01-25 03:33:00* Test Item Value Reference Range Interpretation Comments Hematocrit (test code = 4544-3) 40.3 34.2-44.1 [facility] CenterMean Corpuscular Suwszu6933-75-81 03:33:00* Test Item Value Reference Range Interpretation Comments Mean Corpuscular Volume (test code = 787-2) 104.7 81-99 [facility] Lnlnbcwkbl8365-68-77 03:33:00* Test Item Value Reference Range Interpretation Comments Mean Corpuscular Hemoglobin (test code = 785-6) 33.0 28-32 H [facility] Corpuscular Hemoglobin Concent 2018-11-11 03:33:00* Test Item Value Reference Range Interpretation Comments Mean Corpuscular Hemoglobin Concent (test code = 786-4) 31.5 31-35 [facility] CenterRed Cell Distribution Xmach3059-96-00 03:33:00* Test Item Value Reference Range Interpretation Comments Red Cell Distribution Width (test code = 16287-0) 13.8 11.7 -14.4 [facility] CenterPlatelet Pfmqo9763-79-20 03:33:00* Test Item Value Reference Range Interpretation Comments Platelet Count (test code = 777-3) 117 140-360 L [facility] CenterNeutrophils (%) (Auto)2018-11-11 03:33:00 * Test Item Value Reference Range Interpretation Comments Neutrophils (%) (Auto) (test code = 38497-8) 56.1 38.7-80.0 [facility] CenterLymphocytes (%) (Auto)2018-11-11 03:33:00 * Test Item Value Reference Range Interpretation Comments Lymphocytes (%) (Auto) (test code = 736-9) 25.2 18.0-39.1 [facility] CenterMonocytes (%) (Auto)2018-11-11 03:33:00* Test Item Value Reference Range Interpretation Comments Monocytes (%) (Auto) (test code = 5905-5) 12.8 4.4-11.3 H [facility] CenterEosinophils (%) (Auto)2018-11-11 03:33:00 * Test Item Value Reference Range Interpretation Comments Eosinophils (%) (Auto) (test code = 713-8) 4.8 0.0-6.0 [facility] CenterBasophils (%) (Auto)2018-11-11 03:33:00* Test Item Value Reference Range Interpretation Comments Basophils (%) (Auto) (test code = 706-2) 0.9 0.0-1.0 [facility] CenterIM GRANULOCYTES %2018-11-11 03:33:00* Test Item Value Reference Range Interpretation Comments IM GRANULOCYTES % (test code = IM GRANULOCYTES %) 0.2 0.0- 1.0 [facility] CenterNeutrophils # (Auto)2018-11-11 03:33:00* Test Item Value Reference Range Interpretation Comments Neutrophils # (Auto) (test code = 751-8) 2.4 2.1-6.9 [facility] CenterLymphocytes # (Auto)2018-11-11 03:33:00* Test Item Value Reference Range Interpretation Comments Lymphocytes # (Auto) (test code = 88487-2) 1.1 1.0-3.2 [facility] CenterMonocytes # (Auto)2018-11-11 03:33:00* Test Item Value Reference Range Interpretation Comments Monocytes # (Auto) (test code = 742-7) 0.6 0.2-0.8 [facility] CenterEosinophils # (Auto)2018-11-11 03:33:00* Test Item Value Reference Range Interpretation Comments Eosinophils # (Auto) (test code = 711-2) 0.2 0.0-0.4 [facility] CenterBasophils # (Auto)2018-11-11 03:33:00* Test Item Value Reference Range Interpretation Comments Basophils # (Auto) (test code = 704-7) 0.0 0.0-0.1 [facility] CenterAbsolute Immature Granulocyte (auto 2018-11-11 03:33:00* Test Item Value Reference Range Interpretation Comments Absolute Immature Granulocyte (auto (lyssa t code = Absolute Immature Granulocyte (auto) 0.01 0-0.1 [facility] CenterWhite Blood Ftwdp1093-28-79 03:33:00* Test Item Value Reference Range Interpretation Comments White Blood Count (test code = 6690-2) 4.36 4.8-10.8 L [facility] CenterRed Blood Zzppp7490-49-07 03:33:00* Test Item Value Reference Range Interpretation Comments Red Blood Count (test code = 789-8) 3.85 3.6-5.1 [facility] CenterHemoglobin2019-01-25 03:33:00* Test Item Value Reference Range Interpretation Comments Hemoglobin (test code = 81366-5) 12.7 12.0-16.0 [facility] CenterHematocrit2019-01-25 03:33:00* Test Item Value Reference Range Interpretation Comments Hematocrit (test code = 4544-3) 40.3 34.2-44.1 [facility] CenterMean Corpuscular Dkxbbq6405-93-22 03:33:00* Test Item Value Reference Range Interpretation Comments Mean Corpuscular Volume (test code = 787-2) 104.7 81-99 H [facility] CenterMean Corpuscular Eswhhwamad2058-73-09 03:33:00* Test Item Value Reference Range Interpretation Comments Mean Corpuscular Hemoglobin (test code = 785-6) 33.0 28-32 H [facility] CenterMean Corpuscular Hemoglobin Concent 2018-11-11 03:33:00* Test Item Value Reference Range Interpretation Comments Mean Corpuscular Hemoglobin Concent (test code = 786-4) 31.5 31-35 [facility] CenterRed Cell Distribution Lwbie4988-87-51 03:33:00* Test Item Value Reference Range Interpretation Comments Red Cell Distribution Width (test code = 26759-1) 13.8 11.7 -14.4 [facility] CenterPlatelet Kjqyu6037-56-79 03:33:00* Test Item Value Reference Range Interpretation Comments Platelet Count (test code = 777-3) 117 140-360 L [facility] CenterNeutrophils (%) (Auto)2018-11-11 03:33:00 * Test Item Value Reference Range Interpretation Comments Neutrophils (%) (Auto) (test code = 46409-0) 56.1 38.7-80.0 [facility] CenterLymphocytes (%) (Auto)2018-11-11 03:33:00 * Test Item Value Reference Range Interpretation Comments Lymphocytes (%) (Auto) (test code = 736-9) 25.2 18.0-39.1 [facility] CenterMonocytes (%) (Auto)2018-11-11 03:33:00* Test Item Value Reference Range Interpretation Comments Monocytes (%) (Auto) (test code = 5905-5) 12.8 4.4-11.3 H [facility] CenterEosinophils (%) (Auto)2018-11-11 03:33:00 * Test Item Value Reference Range Interpretation Comments Eosinophils (%) (Auto) (test code = 713-8) 4.8 0.0-6.0 [facility] CenterBasophils (%) (Auto)2018-11-11 03:33:00* Test Item Value Reference Range Interpretation Comments Basophils (%) (Auto) (test code = 706-2) 0.9 0.0-1.0 [facility] CenterIM GRANULOCYTES %2018-11-11 03:33:00* Test Item Value Reference Range Interpretation Comments IM GRANULOCYTES % (test code = IM GRANULOCYTES %) 0.2 0.0- 1.0 [facility] CenterNeutrophils # (Auto)2018-11-11 03:33:00* Test Item Value Reference Range Interpretation Comments Neutrophils # (Auto) (test code = 751-8) 2.4 2.1-6.9 [facility] CenterLymphocytes # (Auto)2018-11-11 03:33:00* Test Item Value Reference Range Interpretation Comments Lymphocytes # (Auto) (test code = 00184-5) 1.1 1.0-3.2 [facility] CenterMonocytes # (Auto)2018-11-11 03:33:00* Test Item Value Reference Range Interpretation Comments Monocytes # (Auto) (test code = 742-7) 0.6 0.2-0.8 [facility] CenterEosinophils # (Auto)2018-11-11 03:33:00* Test Item Value Reference Range Interpretation Comments Eosinophils # (Auto) (test code = 711-2) 0.2 0.0-0.4 [facility] CenterBasophils # (Auto)2018-11-11 03:33:00* Test Item Value Reference Range Interpretation Comments Basophils # (Auto) (test code = 704-7) 0.0 0.0-0.1 [facility] CenterAbsolute Immature Granulocyte (auto 2018-11-11 03:33:00* Test Item Value Reference Range Interpretation Comments Absolute Immature Granulocyte (auto (lyssa t code = Absolute Immature Granulocyte (auto) 0.01 0-0.1 [facility] SWX9404-70-87 10:51:00* Test Item Value Reference Range Interpretation Comments Urine WBC (test code = 5821-4) 0-5 0-5 [facility] VFT0604-05-84 10:51:00* Test Item Value Reference Range Interpretation Comments Urine RBC (test code = 43999-0) NONE 0-5 [facility] Bonrxbbx6296-30-37 10:51:00* Test Item Value Reference Range Interpretation Comments Urine Bacteria (test code = 26441-7) RARE NONE [facility] CenterUrine Epithelial Cuznu3066-59-84 10:51:00 * Test Item Value Reference Range Interpretation Comments Urine Epithelial Cells (test code = 73531-2) FEW NONE [facility] VFY3315-24-89 10:51:00* Test Item Value Reference Range Interpretation Comments Urine WBC (test code = 5821-4) 0-5 0-5 [facility] VOQ6899-22-81 10:51:00* Test Item Value Reference Range Interpretation Comments Urine RBC (test code = 87771-5) NONE 0-5 [facility] Fbqglpcj2944-03-58 10:51:00* Test Item Value Reference Range Interpretation Comments Urine Bacteria (test code = 13416-9) RARE NONE [facility] Epithelial Qmmhk6782-13-70 10:51:00 * Test Item Value Reference Range Interpretation Comments Urine Epithelial Cells (test code = 33623-0) FEW NONE [facility] CenterU[facility] Akfck4120-07-87 10:38:00* Test Item Value Reference Range Interpretation Comments Urine Color (test code = 5778-6) YELLOW YELLOW [facility] CenterU[facility] Pbxyupz9885-64-81 10:38:00* Test Item Value Reference Range Interpretation Comments Urine Clarity (test code = 24002-7) CLEAR CLEAR [facility] CenterUrine Specific Tykhyib1378-34-26 10:38:00 * Test Item Value Reference Range Interpretation Comments Urine Specific [place] (test code = 5811-5) 1.020 1.010-1.02 5 [facility] CenterU[facility] jW5784-01-75 10:38:00* Test Item Value Reference Range Interpretation Comments Urine pH (test code = 40491-7) 6 5-7 [facility] CenterU[facility] Leukocyte Exppkher7487-14-33 10:38:00* Test Item Value Reference Range Interpretation Comments Urine Leukocyte Esterase (test code = 5799-2) NEGATIVE NEGATIVE [facility] Svaukcj8813-39-11 10:38:00* Test Item Value Reference Range Interpretation Comments Urine Nitrite (test code = 54685-7) NEGATIVE NEGATIVE [facility] Syiawik6728-77-69 10:38:00* Test Item Value Reference Range Interpretation Comments Urine Protein (test code = 5804-0) NEGATIVE NEGATIVE [facility] Glucose (UA)2018-11-10 10:38:00* Test Item Value Reference Range Interpretation Comments Urine Glucose (UA) (test code = 2349-9) NEGATIVE NEGATIVE [facility] CenterU[facility] Eqcbvmh2403-61-71 10:38:00* Test Item Value Reference Range Interpretation Comments Urine Ketones (test code = 80972-2) NEGATIVE NEGATIVE [facility] Toniikgjtkyr0900-47-42 10:38:00* Test Item Value Reference Range Interpretation Comments Urine Urobilinogen (test code = 70008-1) 0.2 0.2-1 [facility] CenterU[facility] Orephsitg0397-94-90 10:38:00* Test Item Value Reference Range Interpretation Comments Urine Bilirubin (test code = 1978-6) NEGATIVE NEGATIVE [facility] Cbzuf9860-70-38 10:38:00* Test Item Value Reference Range Interpretation Comments Urine Blood (test code = 04204-4) NEGATIVE NEGATIVE [facility] CenterU[facility] Biqqg3108-97-46 10:38:00* Test Item Value Reference Range Interpretation Comments Urine Color (test code = 5778-6) YELLOW YELLOW [facility] CenterU[facility] Iwdpixt5096-54-80 10:38:00* Test Item Value Reference Range Interpretation Comments Urine Clarity (test code = 09797-8) CLEAR CLEAR [facility] CenterU[facility] Specific Jlzmzda5967-64-84 10:38:00 * Test Item Value Reference Range Interpretation Comments Urine Specific [place] (test code = 5811-5) 1.020 1.010-1.02 5 [facility] CenterU[facility] tY6894-26-15 10:38:00* Test Item Value Reference Range Interpretation Comments Urine pH (test code = 51820-4) 6 5-7 [facility] CenterU[facility] Leukocyte Zofbgbnd4189-36-77 10:38:00* Test Item Value Reference Range Interpretation Comments Urine Leukocyte Esterase (test code = 5799-2) NEGATIVE NEGATIVE [facility] CenterU[facility] Wyxvhrr7157-94-24 10:38:00* Test Item Value Reference Range Interpretation Comments Urine Nitrite (test code = 63545-2) NEGATIVE NEGATIVE [facility] CenterU[facility] Wdswuhi4155-13-83 10:38:00* Test Item Value Reference Range Interpretation Comments Urine Protein (test code = 5804-0) NEGATIVE NEGATIVE [facility] CenterU[facility] Glucose (UA)2018-11-10 10:38:00* Test Item Value Reference Range Interpretation Comments Urine Glucose (UA) (test code = 2349-9) NEGATIVE NEGATIVE [facility] Nqdbxvo9319-21-39 10:38:00* Test Item Value Reference Range Interpretation Comments Urine Ketones (test code = 67891-1) NEGATIVE NEGATIVE [facility] CenterU[facility] Srorntqxwhli8554-64-93 10:38:00* Test Item Value Reference Range Interpretation Comments Urine Urobilinogen (test code = 44975-7) 0.2 0.2-1 [facility] CenterU[facility] Gkkmulmgn0348-66-70 10:38:00* Test Item Value Reference Range Interpretation Comments Urine Bilirubin (test code = 1978-6) NEGATIVE NEGATIVE [facility] CenterU[facility] Eftgz3706-52-01 10:38:00* Test Item Value Reference Range Interpretation Comments Urine Blood (test code = 04238-3) NEGATIVE NEGATIVE [facility] EI4605-61-67 09:41:00 [facility] [address] [address] Patient Name: AMAURY CONTE MR #: [id number] : Age/Sex: 73/F Req #: [id number] Adm Physician: Ordered by: NEL BONNER MD Report #: [id number] Location: ER Room/Bed: Procedure: CT/CT BRAIN WO Exam Date: 11/10/18 Exam [...] intracranial hemorrhage or cortical infarct. 2. 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 Signed by: Dr. Salma Marley M.D. on 10/19 9:44 AM Dictated By: SALMA MARLEY MD 3 Transcribed By: JUAN on 11/10/18943 BLACK PICKLER Y TO: NEL BONNER MD Thyroid Stimulating Hormone (TSH)2018-11-10 09:35:00* Test Item Value Reference Range Interpretation Comments Thyroid Stimulating Hormone (TSH) (test code = 07799-0) 1.655 0.350-4.940 [facility] CenterThyroid Stimulating Hormone (TSH) 2018-11-10 09:35:00* Test Item Value Reference Range Interpretation Comments Thyroid Stimulating Hormone (TSH) (test code = 65099-7) 1.655 0.350-4.940 [facility] CenterCHEST SINGLE (PORTABLE)2018-11-10 09:07:00 [facility] [address] [place] [address] Patient Name: AMAURY CONTE MR #: [id number] : 1945 Age/Sex: 73/F Req #: [id number] Adm Physician: Ordered by: NEL BONNER MD Report #: [id number] Location: Room/Bed: Procedure: 0124-00 17 DX/CHEST SINGLE (PORTABLE) [...] 11/10/18908 COPY TO: NEL BONNER MD Prothrombin Gvnx5564-54-99 09:04:00* Test Item Value Reference Range Interpretation Comments Prothrombin Time (test code = 5902-2) 15.1 11.9-14.5 H [facility] CenterProthromb Time International Ratio 2018-11-10 09:04:00* Test Item Value Reference Range Interpretation Comments Prothromb Time International Ratio (test code = 6301-6) 1.09 Oral Anticoagulant Therapy INR Values:1. Low Intensity Therapy 1.5 - 2.02 . Moderate Intensity Therapy 2.0 - 3.03. High Intensity Therapy(1) 2.5 - 3. 54. High Intensity Therapy(2) 3.0 - 4.05. Panic Value INR > 5.0 [facility] CenterActivated Partial Thromboplast Time 2018-11-10 09:04:00* Test Item Value Reference Range Interpretation Comments Activated Partial Thromboplast Time (test code = 65348-3) 35.5 23.8-35.5 [facility] CenterProthrombin Rohw1742-67-66 09:04:00* Test Item Value Reference Range Interpretation Comments Prothrombin Time (test code = 5902-2) 15.1 11.9-14.5 H [facility] CenterProthromb Time International Ratio 2018-11-10 09:04:00* Test Item Value Reference Range Interpretation Comments Prothromb Time International Ratio (test code = 6301-6) 1.09 Oral Anticoagulant Therapy INR Values:1. Low Intensity Therapy 1.5 - 2.02 . Moderate Intensity Therapy 2.0 - 3.03. High Intensity Therapy(1) 2.5 - 3. 54. High Intensity Therapy(2) 3.0 - 4.05. Panic Value INR > 5.0 [facility] CenterActivated Partial Thromboplast Time 2018-11-10 09:04:00* Test Item Value Reference Range Interpretation Comments Activated Partial Thromboplast Time (test code = 68994-3) 35.5 23.8-35.5 [facility] CenterCHEM NKQPC8129-27-51 16:55:0050[facility]annCHEM BWIUE5220-01-52 16:55:004.3[facility]annCHEM VUJGT5755-93-35 16:55:77819Pljulpzj HermannCHEM KJBZG7564-41-28 16:55:0025[facility]annCHEM EWTBD8445-54-94 16:55:009.2[facility]annCHEM CVJBF9044-45-85 16:55:001.10 [facility] HermannCHEM OYJIU6159-78-12 16:55:0024[facility] HermannCHEM PANEL 2016-10-15 16:55:24162Kubrlefo HermannCHEM WWVIF3013-47-32 16:55:42195Aoletwqt HermannCHEM QJCQS8693-40-59 16:55:0011.3[facility] EaewcgbVMTUAUQUVZ9687-34-74 16:55:001.3[facility] XmotjrmRPIMMDZKNV9285-06-19 16:55:003.6[facility] QLOQZTMVPO4291-12-46 16:55:000.6[facility] VfprybzTXRYEEETRR0524-89-57 16:55:000.7 [facility] TmjrqkjMVQHKCWAWO1602-75-35 16:55:000.2[facility]annHEMATOLOGY 2016-10-15 16:55:0062.5[facility] BbpivinNBXPRXRGHA8825-95-92 16:55:0022.7[facility]orial QnzwgvaMQIPDXUVAQ5672-48-87 16:55:003.4[facility] NcnjjbfFHTTPKOVLU7061-42-98 16:55:0010.7[facility]orial XghqghcUVNGLCUQII4208-22-66 16:55:00* Test Item Value Reference Range Interpretation Comments PTT (test code = PTT) 32.6 s 22.9-35.8 [facility] VxrannhSFANNNYTJR8728-34-47 16:55:001.26[facility] HermannHEMATOLOGY 2016-10-15 16:55:00* Test Item Value Reference Range Interpretation Comments PT (test code = PT) 16.1 s 12.0-14.7 [facility] QxmmhjyXHSZRZFYCY2570-81-26 16:55:00* Test Item Value Reference Range Interpretation Comments MCH (test code = MCH) 31.1 pg 27.0-31.0 [facility] RqxowktUKHFXEOYZF7087-68-37 16:55:0095.1[facility]annHEMATOLOGY 2016-10-15 16:55:0032.7[facility]orial PshmcazVKTKBKBYEJ6921-85-46 16:55:0042.7[facility] VoghmotWPOSPZIHTG0320-29-30 16:55:009.9[facility] CxvgxmjIZXBNBAQAP8014-17-98 16:55:15972Sqxeujgu JrhmssyFNJFALQCNC3161-07-42 16:55:0014.0[facility] QHXTYIVILI9718-05-06 16:55:004.49[facility] AeonvjrCPSOQHYAGB2378-76-81 16:55:00 5.8[facility] OfvhzmsEAFPYXLDDN9435-95-50 16:55:0014.0[facility]
--- OUTSIDE RECORDS SUMMARY | 2020-07-14 14:13 | XMS REPORT | Continuity of Care Document ---
Author Author [id number] Yodo1 Information Zelgor Address Unknown Phone Unavailable Care Team Providers Care Cardiac Cath Technician Name Role Phone Yodo1 Information Exchange Unavailable Un available Problems Problem Status Onset Date Classification Date Reported Comments Source UNK Active 1 12/15/2015 [facility] DIZZINESS Active 12/01/2012 [facility] Diabetes mellitus (disorder) R esolved Problem 08/2020 [facility] REGINE Reyesor e Hypertensive disorder, systemic arterial (disorder) Resolved Problem 03/28/2020 [facility] REGINE Cruz Atrial fibrillation Active Diagnosis 06/22/2014 [...] (Same as:Genesis fuentes) No milk/antacids/iron. Inactive 10/17/2016 [facility] 24 HR Metoprolol Tartrate 100 MG Extende d Release Tablet [Toprol] Notes: (Same as: Toprol XL) May split t ab, but do not crush. Inactive 10/17/2016 [facility] Isosorbide Notes: (Same as:Imd ur) "Do Not Crush" Take on empty stomach/ full glass of water. Inactive 10/17/2016 [facility] Hydrochlorothiazide 25 MG / Triamterene 37.5 MG Oral Capsule Notes: (triamterene-hydrochlorothiazide 37.5-25 mg TAB) (Same As: Maxzide- 25) Inactive 10/17/2016 [facility] Esomeprazole 40 mg, Route: PO, Drug form: ECCAP, Daily, Dosing Weight 99.545, kg, Start date: 10/17/16 9:00:00 PERFECT BINDER OPERATOR, Duration: 30 day, Stop date: 11/15/16 9:00:00 PERFECT BINDER OPERATOR No Longer Active 10/17/2016 [facility] celecoxib Notes: NSAID. Please check indication. Not for seizure. (Same As: CeleBREX) Inactive 10/17/2016 [facility] Protonix Notes: Tablet should not be chewed or crushed. (Same as: Protonix) Inactive 10/17/2016 [facility] influenza virus vaccine, inactivated Notes: (Same as: Fluzone Quadrivalent, Fluarix Quadrivalent) For 3 years of age and older (0.5 mL IM) Shake well before use Inactive 10/16/2016 [facility] Glipizide 5 MG Oral Tablet Not es: (Same as: Glucotrol) 30 min before meals. No Longer Active 10/16/2016 [facility] Glucagon 1 mg, Route: IM, Drug form: PDR/INJ, PRN, Dosing Weight 99.545, kg, PRN Blood Glucose Results, Start date: 10/16/16 13:15:00 PERFECT BINDER OPERATOR, Duration: 30 day, Stop date: 11/15/16 13:14:00 PERFECT BINDER OPERATOR No Longer Active 10/16/2016 [facility] Dextrose 50% Syringe 12.5 gm, 25 mL, Route: IVP, Drug Form: INJ, Dosing Weight 99.545, kg, PRN, PRN Blood Glucose Results, Start date: 10/16/16 13:15:00 PERFECT BINDER OPERATOR, Duration: 30 day, Stop date: 11/15/16 13:14:00 PERFECT BINDER OPERATOR No Longer Active 10/16/2016 [facility] Insulin, Aspart, Human Notes: Roll in palms of hands gently; Do not shake vigorously. (Same as: NovoLOG) "single patient use only" WASTE: F/P - Black; E - Yieldr Trash Bin Stable for 28 days at room temperature. Expires in days from Date No Longer Active 10/16/2016 [facility] Lyrica Notes: Same as Lyrica No Longer Active 10/16/2016 [facility] tramadol hydrochloride 50 MG Oral Tablet Notes: Not to exceed 400mg/day. (Same As: Ultram) No Longer Active 10/16/2016 [facility] acetaminophen-codeine #3 Notes : Do not exceed 4gm/day of acetaminophen. (Same as: Tylenol with Codeine # 3) No Longer Active 10/16/2016 [facility] Vancomycin 2001 mg: infuse ov er 2.5 hours MEDICATION WASTE Product Size: 1000 mg Product Wasted: ___ mg Inactive 10/16/2016 [facility] Glipizide 5 MG Oral Tablet 5 m g = 1 tab, PO, BID-Before Meals, # 30 tab, 1 Refill(s) Active 10/15/2016 [facility] apixaban 5 MG Oral Tablet [Eliquis] 5 mg = 1 tab, PO, Daily, 0 Refill(s) Active 10/15/2016 [facility] metoprolol 100 mg oral tablet, extended release 100 mg = 1 tab, PO, Daily, # 30 tab, 0 Refill(s) Active 10/15/2016 [facility] pregabalin 50 MG Oral Capsule [Lyrica] 50 mg = 1 cap, PO, TID, 0 Refill(s) Active 10/15/2016 [facility] tramadol hydrochloride 50 MG Oral Tablet 50 mg = 1 tab, PO, Q6H, PRN Pain, # 40 tab, 0 Refill(s) Active 10/15/2016 [facility] dronedarone 400 MG Oral Tablet [Multaq] 400 mg = 1 tab, PO, BID, # 60 tab, 0 Refill(s) Active 10/15/2016 [facility] Esomeprazole 40 MG Enteric Coated Capsule 40 mg = 1 cap, PO, Daily, # 30 cap, 0 Refill(s) Active 10/15/2016 [facility] Metformin hydrochloride 500 MG Oral Tablet 500 mg = 1 tab, PO, BID-Meals, # 30 tab, 0 Refill(s) Active 10/15/2016 [facility] celecoxib 200 mg oral capsule 200 mg = 1 cap, PO, Daily, # 30 cap, 0 Refill(s) Active 10/15/2016 [facility] isosorbide mononitrate 30 mg oral tablet , extended release 30 mg = 1 tab, PO, QAM, # 30 tab, 0 Refill(s) Active 10/15/2016 [facility] Hydrochlorothiazide 25 MG / Triamterene 37.5 MG Oral Capsule 1 cap, PO, Daily, # 30 cap, 0 Refill(s) Active 10/15/2016 [facility] Thyroxine Daily, 0 Refill(s) Active 10/15/2016 [facility] Metoprolol Succinate 1 TABLET Orally Active [...] D (Ergocalciferol) 1 c apsule Orally Active [id number] UNIT Orally [facility] Isosorbide [...] [facility] Solu-MEDROL Assertion Drug allergy Active [facility] Immunizations Immunization Date Given Site Status Last Updated Comments Source influenza virus vaccine, inactivated 10/16/2016 Right deltoid completed [place] [facility] Results Order Name Results Value Reference [...] should be multiplied by the estimated BMI. [facility] CHEM PANEL Potassium Lvl 4.3 3.5 - 5.1 10/15/2016 [facility] CHEM PANEL Chloride Lvl 111 95 - 109 10/15/2016 [facility] CHEM PANEL CO2 25 24 - 32 10/15/2016 [facility] CHEM PANEL Calcium Lvl 9.2 8.5 - 10.5 10/15/2016 [facility] CHEM PANEL Creatinine Lvl 1.10 0.50 - 1.40 10/15/2016 [facility] CHEM PANEL BUN 24 7 - 22 10/15/2016 [facility] CHEM PANEL Sodium Lvl 143 135 - 145 10/15/2016 [facility] CHEM PANEL Glucose Lvl 162 70 - 99 10/15/2016 [facility] CHEM PANEL AGAP 11.3 10.0 - 20.0 10/15/2016 [facility] HEMATOLOGY Lymphocytes # 1.3 1.0 - 5.5 10/15/2016 [facility] HEMATOLOGY Segs-Bands # 3.6 1.5 - 8.1 10/15/2016 [facility] HEMATOLOGY Monocytes # 0.6 0.0 - 0.8 10/15/2016 [facility] HEMATOLOGY Basophils 0.7 0.0 - 1.0 10/15/2016 [facility] HEMATOLOGY Eosinophils # 0.2 0.0 - 0.5 10/15/2016 [facility] HEMATOLOGY Segs 62.5 45.0 - 75.0 10/15/2016 [facility] HEMATOLOGY Lymphocytes 22.7 20.0 - 40.0 10/15/2016 [facility] HEMATOLOGY Eosinophils 3.4 0.0 - 4.0 10/15/2016 [facility] HEMATOLOGY Monocytes 10.7 2.0 - 12.0 10/15/2016 [facility] HEMATOLOGY PTT 32.6 22.9 - 35.8 10/15/2016 [facility] HEMATOLOGY INR 1.26 0.85 - 1.17 10/15/2016 [facility] [facility] PT 16.1 12.0 - 14.7 10/15/2016 [facility] MCH 31.1 27.0 - 31.0 10/15/2016 [facility] MCV 95.1 80.0 - 98.0 10/15/2016 [facility] MCHC 32.7 32.0 - 36.0 10/15/2016 [facility] [place] Hct 42.7 36.0 - 48.0 10/15/2016 [facility] MPV 9.9 7.4 - 10.4 10/15/2016 [facility] Platelet 135 133 - 450 10/15/2016 [facility] RDW 14.0 11.5 - 14.5 10/15/2016 [facility] RBC 4.49 4.20 - 5.40 10/15/2016 [facility] WBC 5.8 3.7 - 10.4 10/15/2016 [facility] Hgb 14.0 12.0 - 16.0 10/15/2016 [facility] Pathology Reports No Data Provided for [...] canal and left neural foraminal stenosis. 03/26/2020 [facility] Chest 2 views DX Patient Name: AMAURY CONTE : 1945; Age: 71 years Female MR: [id number] Study: Chest 2 views DX Order Time: 10/17/2016 3:00 AM PERFECT BINDER OPERATOR CLINICAL INDICATION: Line Placement ADDITIONAL HISTORY: None COMPARISON: Chest radiograph on 10/16/2016 FINDINGS: Lines: Stable position of the left chest pacemaker. Lungs: Hyperinflated lungs. Linear scarring and/or atelectasis within the left midlung. No effusion or pneumothorax. Mediastinum: The cardiac silhouette is mildly enlarged. Midline trachea. Bones and soft tissues: Unremarkable. IMPRESSION: No acute cardiopulmonary abnormalities. SL: [id number] 10/17/2016 [facility] Chest 1view DX Patient Name: AMAURY CONTE : 1945; Age: 71 years y/o Female MR: [id number] Study: Chest 1view DX 10/16/2016 11:25 AM PERFECT BINDER OPERATOR Ordering Physician: MD Omer Zelaya MD [...] pneumothorax seen. No other new/acute findings. SL: [id number] 10/16/2016 [facility] Consultation Notes No Data Provided for This Section Discharge Summaries No Data Provided for This Section History and Physicals No Data Provided for This Section Vital Signs Vital Sign Value Date Comments Source Respitory Rate 16 10/17/2016 [facility] Systolic (mm Hg) 97 10/17/2016 [facility] Diastolic (mm Hg) 59 10/17/2016 [facility] Heart Rate 71 10/17/2016 [facility] Temperature Oral (F) 98.1 F 10/17/2016 [facility] Systolic (mm Hg) 111 10/17/2016 [facility] Diastolic (mm Hg) 63 10/17/2016 [facility] Respitory Rate 18 10/17/2016 [facility] Temperature Oral (F) 98.1 F 10/17/2016 [facility] Heart Rate 79 10/17/2016 [facility] Respitory Rate 16 10/17/2016 [facility] Systolic (mm Hg) 130 10/17/2016 [facility] Diastolic (mm Hg) 72 10/17/2016 [facility] Heart Rate 85 10/17/2016 [facility] Temperature Oral (F) 98.1 F 10/17/2016 [facility] BMI Calculated 41.47 10/15/2016 [facility] Height 154.94 cm 10/15/2016 [facility] Weight 99.545 10/15/2016 [facility] Weight 232 06/13/2014 [facility] [...] Provider ADM Date DC Date Status Source [facility] Emergency [id number] THELMA BARCENAS 12/01/2012 12/01/2012 Discharged [facility] Rose Mary MCMILLAN PA ECHO [id number] 02/23/20 14 02/22/2014 [facility] MCMILLAN PA ECHO [id number] 02/23/20 14 02/22/2014 [facility] MCMILLAN PA ECHO [id number] 02/23/20 14 02/22/2014 [facility] MCMILLAN PA ECHO [id number] 02/23/20 14 02/22/2014 [facility] Rose Mary JACOBSON ECHO [id number] 02/23/20 14 02/22/2014 [facility] Rose Mary JACOBSON ECHO [id number] 02/23/20 14 02/22/2014 [facility] Mary MCMILLAN PA ECHO [id number] 02/23/20 14 02/22/2014 [facility] MCMILLAN PA ECHO [id number] 02/23/20 14 02/22/2014 [facility] Rose Mary MCMILLAN PA F/U FOR ECHO [id number] 02/23/20 14 02/22/2014 [facility] Rose Mary MCMILLAN PA F/U FOR ECHO [id number] 02/23/20 14 02/22/2014 [facility] Rose Mary MCMILLAN PA F/U FOR ECHO [id number] 02/23/20 14 02/22/2014 [facility] Rose Mary MCMILLAN PA F/U FOR ECHO [id number] 02/23/20 14 02/22/2014 [facility] Rose Mary MCMILLAN PA F/U FOR ECHO [id number] 02/23/20 14 02/22/2014 [facility] Rose Mary MCMILLAN PA F/U FOR ECHO [id number] 02/23/20 14 02/22/2014 [facility] Rose Mary MCMILLAN PA F/U FOR ECHO [id number] 02/23/20 14 02/22/2014 [facility] Rose Mary MCMILLAN PA F/U FOR ECHO [id number] 02/23/20 14 02/22/2014 [facility] Rose Mary MCMILLAN PA Refills [id number] 05/01/20 14 05/01/2014 [facility] Rose Mary MCMILLAN PA Refills [id number] 05/01/20 14 05/01/2014 [facility] Rose Mary MCMILLAN PA Refills [id number] 05/01/20 14 05/01/2014 [facility] Mary MCMILLAN PA Refills [id number] 05/01/20 14 05/01/2014 [facility] MCMILLAN PA Refills [id number] 05/01/20 14 05/01/2014 [facility] MCMILLAN PA Refills [id number] 05/01/20 14 05/01/2014 [facility] Mary MCMILLAN PA Refill [id number] 05/03/20 14 05/03/2014 [facility] Mary MCMILLAN PA Refill [id number] 05/03/20 14 05/03/2014 [facility] Rose Mary MCMILLAN PA Refill [id number] 05/03/20 14 05/03/2014 [facility] Mary MCMILLAN PA Refill [id number] 05/03/20 14 05/03/2014 [facility] MCMILLAN PA Refill [id number] 05/03/20 14 05/03/2014 [facility] Mary MCMILLAN PA Refill [id number] 05/03/20 14 05/03/2014 [facility] Rose Mary MCMILLAN PA Refills [id number] 05/03/20 14 05/03/2014 [facility] Rose Mary MCMILLAN PA Refills [id number] 05/03/20 14 05/03/2014 [facility] Rose Mary MCMILLAN PA Refills [id number] 05/03/20 14 05/03/2014 [facility] Rose Mary MCMILLAN PA Refills [id number] 05/03/20 14 05/03/2014 [facility] Mary John MCMILLAN PA Refills [id number] 05/03/20 14 05/03/2014 [facility] John MCMILLAN PA Refills [id number] 05/03/20 14 05/03/2014 [facility] Mary John JACOBSON Unknown [id number] 05/03/20 14 05/03/2014 [facility] Rose Mary John JACOBSON Unknown [id number] 05/03/20 14 05/03/2014 [facility] Rose Marynhan JACOBSON Unknown [id number] 05/03/20 14 05/03/2014 [facility] Rose Marynhan JACOBSON Unknown [id number] 05/03/20 14 05/03/2014 [facility] Rose Mary John JACOBSON Unknown [id number] 05/03/20 14 05/03/2014 [facility] Rose Mary JACOBSON Unknown [id number] 05/03/20 14 05/03/2014 [facility] Rose Marynhan JACOBSON medicatins [id number] 06/13/20 14 06/13/2014 [facility] Rose Marynhan JACOBSON medicatins [id number] 06/13/20 14 06/13/2014 [facility] Rose Marynhan MCMILLAN PA REFILL [id number] 06/13/20 14 06/13/2014 [facility] Rose Mary MCMILLAN PA REFILL [id number] 06/13/20 14 06/13/[address] [facility] [address] [facility] Bedded Outpatient [id number] Omer Zelaya 10/16/2016 10/17/2016 [facility] [id number] Homer Castellanosaraz 03/26/2020 03/27/2020 [facility] Procedures Procedure Code Date Perfomer Comments Source Appendectomy [id number] [facility] Cholecystectomy [id number] [facility] Hysterectomy [id number] [facility] Lumbar spinal fusion [id number] [facility] Assessment and Plan No Data Provided for This Section Plan of Care No Data Provided for This Section Social History Social History Date Source Social History TypeResponse Smoking Status Never smoker; Exposure to Tobacco Smoke None; Cigarette Smoking Last 365 Days No; Reg Smoking Cessation Counseling No 10/15/2016 [facility] Social History TypeResponse Smoking Status Never smoker; Exposure to Tobacco Smoke None; Cigarette Smoking Last 365 Days No; Reg Smoking Cessation Counseling No entered on: 10/15/16 10/15/2016 [facility] Social History ElementQualifiersDate Rep orted Diet: [...]
--- OUTSIDE RECORDS SUMMARY | 2020-07-14 14:15 | XMS REPORT | Continuity of Care Document ---
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 Name Role Phone DO Rose MARTINEZ PCP HUE PETERSON Attphys Unavailable Douglas NEWMAN Attphys Unavailable Sofi Benz Attphys Carolee BONNER Attphys Unavailable Omer Pitt Attphys HUE PETERSON Admphys Unavailable Payers Payer Name Policy Type Policy Number Effective Date Expiration Date Douglas tam [facility] Medicare Complete [id number] 2020 00:00:00 [facility] Cdc Review [id number] [facility] [id number] 2018 00:00:00 [facility] Problems Condition Name Condition Details Condition Category Status Onset Date Resolution Date Last Treatment Date Treating Clinician Comments Source TALI CESAR Active 10/14/2016 [facility] Active 2016-10-14 00:00:00 2016-10-24 07:28:00 Sofi Faust DIZZINESS DIZZ INESS Active 12/01/2012 [facility] Diagnosis Active 2012-12-01 00:00:00 2012-12-01 18:43:00 Osbaldo Faust Chronic atrial fibrillation Atrial fibrillation, chronic Problem Active [facility] Balance problems Balance problem Problem Active [facility] Vertigo Vertigo Problem Active [facility] Altered mental status Problem Active [facility] Macrocytic anemia Problem Active [facility] Acute renal insufficiency Problem Active [facility] Hypernatremia Problem Active [facility] Back pain Problem Active [facility] Hepatic encephalopathy Problem Active [facility] Renal insufficiency Problem Active [facility] Hyperbilirubinemia Problem Active [facility] Coagulation disorder Problem Active [facility] Urinary tract infection Problem Active [facility] Gastrointestinal hemorrhage Problem Active [facility] Anemia Problem Active [facility] Congestive heart failure Problem Active [facility] Diabetes mellitus (disorder) D iabetes mellitus (disorder) Resolved Problem 03/28/2020 [facility] [place] Problem Resolved 2020-03-28 23:28:22 Isrrael Faust Hypertensive disorder, systemic arterial (disorder) Hypertensive disorder, systemic arterial (disorder) Resolved Problem 03/28/2020 [facility] [place] Problem Resolved 2020-03-28 23 :28:22 Osbaldo Faust [...] 06/22/2014 [facility] Cardiovascular Diagnosis Active 2014-06-22 02:59:33 [facility] Allergies, Adverse Reactions, Alerts Allergy Name Allergy Type Status Severity Reaction(s) Onset Date Inacti ve Date Treating Clinician Comments Source STEROIDS Allergy to substance Active 2018-11-10 00:00:00 [facility] N.KLeathaAMarty Villalobos Active Info Not Available 2014-06-13 00:00:00 [facility] Neuromuscular Blockers, Steroidal DA Active U 2012-02-12 00:00:00 [facility] Solu-MEDROL Solu-MEDROL Active [facility] Family History Family Member Diagnosis Comments Start Date Stop Date Source Unknown Family Member Family History 2014-02-23 04:18:31 2 04:18:31 [facility] Social History Social Habit Start Date Stop Date Quantity Comments Source Diet: 2014-06-13 00:00:00 2014-06-13 00:00:00 Osbaldo Govind Sex Ass[birth year] At 1945 00:00:00 1945 00[birth year]00:00 Female [facility] Smoking Status Start Date Stop Date Source Social History [facility] Medications Ordered Medication Name Filled Medication Name Start Date Stop Da te Current Medication? Ordering Clinician Indication Dosage Frequency Signature (SIG) Comments Components Source Lactulose Lactulose 2020-07-09 13:13:00 Yes 20 Twice A Day [facility] Rifaximin (Xifaxan) 550 Mg TABLET Rifaximin (Xifaxan) 550 Mg TABLET 2020-07-09 13:13:00 Yes 550 Twice A Day [facility] Penicillin V Potassium (Pencillin V Potassium*) 250 Mg TAB Penicillin V Potassium (Pencillin V Potassium*) 250 Mg TAB 2020-06-10 13:54:00 00:00:00 No 500 Every 8 Hours C [facility] Acetaminophen Acetaminophen 2020-06-10 13:25:00 Yes 650 Every 6 Hours as needed for Mild Pain (1-3) Or Fever>100.8 [facility] Oxybutynin Chloride (Ditropan Xl) 5 Mg TAB.ER.24 Oxybu tynin Chloride (Ditropan Xl) 5 Mg TAB.ER.24 2020-06-10 13:25:00 Yes 10 Daily At 6:00PM [facility] Tramadol Hcl (Ultram 50MG*) 50 Mg TAB Tramadol Hcl (Ultram 5 0MG*) 50 Mg TAB 2020-06-10 13:25:00 Yes 50 Every 6 Hours as needed for Mild Pain (1-3) Or Fever>100.8 [facility] Ceftriaxone Sodium (Ceftriaxone) 1 Gm VIAL Ceftriaxone Sodium (Ceftriaxone) 1 Gm VIAL 2020-04-26 09:51:00 2020-06-02 00:00:00 No 1 Jesse y [facility] Apixaban (Eliquis) 2.5 Mg TABLET Apixaban (Eliquis) 2.5 Mg T ABLET 2020-04-22 09:25:00 Yes 2.5 Every 12 Hours [facility] Lactulose Lactulose 2020-04-21 09:12:00 2020-06-02 00:00:00 No 30 Daily@0600 [facility] Ascorbic Acid Ascorbic Acid 2020-04-21 09:06:00 Yes 500 Daily [facility] Ferrous Sulfate Ferrous Sulfate 2020-04-21 09:06:00 Yes 325 Daily@0600 [facility] Meclizine Hcl Meclizine Hcl 2020-04-21 09:06:00 Yes 25 Twice A Day as needed for Dizziness [facility] Pantoprazole Sodium (Protonix) 40 Mg TABLET. Pantopr azole Sodium (Protonix) 40 Mg TABLET. 2020-04-21 09:06:00 Yes 40 Before Mary Ellen kfast [facility] Tramadol Hcl (Ultram) 50 Mg TABLET Tramadol Hcl (Ultram) 50 Mg TABLET 2020-04-20 01:00:00 2020-07-09 00:00:00 No 50 Every 6 Hours as needed for Mild Pain (1-3) Or Fever>100.8 [facility] Pantoprazole Sodium (Protonix) 40 Mg TABLET. Pantopr azole Sodium (Protonix) 40 Mg TABLET. 2020-04-09 10:43:00 2020-04-21 00:00:00 No 40 Before Breakfast [facility] Baclofen Baclofen 2018-11-11 10:52:00 2020-04-07 00:00:00 No 5 Every 12 Hours as needed for Muscle Spasm [facility] Fluticasone Propionate Fluticasone Propionate 2018-11-11 10:52:0 0 2020-04-07 00:00:00 No 0 Twice A Day [facility] Meclizine Hcl Meclizine Hcl 2018-11-11 10:52:00 2020-04-07 00:00:00 No 25 Every 6 Hours as needed for Vertigo [facility] Pregabalin (Lyrica) 50 Mg CAP Pregabalin (Lyrica) 50 Mg CAP 2018 10:52:00 2020-04-07 00:00:00 No 50 Three Times A Day as needed for Pain [facility] Minocycline 2016-10-17 15:00:00 No Notes: (Same as:Minocin) No milk/antacids/iron. Osbaldo Faust 24 HR Metoprolol Tartrate 100 MG Extended Release Tablet [To prol] 2016-10-17 15:00:00 No Notes: (Sa me as: Toprol XL) May split tab, but do not crush. [facility] Isosorbide 2016-10-17 15:00:00 No Notes: (Same as:Imdur) "Do Not Crush" Take on empty stomach/ full glass of water. Osbaldo Faust Hydrochlorothiazide 25 MG / Triamterene 37.5 MG Oral Capsule 2016-10-17 15:00:00 No Notes: (tr iamterene-hydrochlorothiazide 37.5-25 mg TAB) (Same As: Maxzide-) [facility] Esomeprazole 2016-10-17 15:00:00 No 40 mg, Route: PO, Drug form: ECCAP, Daily, Dosing Weight 99.545, kg, Start date: 10/17/16 9:00:00 REPAIRER CYLINDER HEADS, Duration: 30 day, Stop date: 11/15/16 9:00:00 REPAIRER CYLINDER HEADS Osbaldo Faust celecoxib 2016-10-17 15:00:00 No Notes: NSAID. Please check indication. Not for seizure. (Same As: CeleBREX) Osbaldo Faust Protonix 2016-10-17 13:30:00 No Notes: Tablet should not be chewed or crushed. (Same as: Protonix) [facility] influenza virus vaccine, inactivated 2016-10-16 22:30:00 No Notes: (Same as: Fluzone Quadrivalent, Fluarix Quadrivalent) For 3 years of age and older (0.5 mL IM) Shake well before use [facility] Glipizide 5 MG Oral Tablet 2016-10-16 22:30:00 No Notes: (Same as: Glucotrol) 30 min before meals. Cristian Faust Glucagon 2016-10-16 19:15:00 No 1 mg, Route: IM, Drug form: PDR/INJ, PRN, Dosing Weight 99.545, kg, PRN Blood Glucose Results, Start date: 10/16/16 13:15:00 REPAIRER CYLINDER HEADS, Duration: 30 day, Stop date: 11/15/16 13:14:00 REPAIRER CYLINDER HEADS [facility] [place] Dextrose 50% Syringe 2016-10-16 19:15:00 No 12.5 gm, 25 mL, Route: IVP, Drug Form: INJ, Dosing Weight 99.545, kg, PRN, PRN Blood Glucose Results, Start date: 10/16/16 13:15:00 REPAIRER CYLINDER HEADS, Duration: 30 day, Stop date: 11/15/16 13:14:00 [facility] [place] Insulin, Aspart, Human 2016-10-16 19:15:00 No Notes: Roll in palms of hands gently; Do not shake vigorously. (Same as: NovoLOG) "single patient use only" WASTE: F/P - Black; E - Municipal Trash Bin Stable for 28 days at room temperature. Expires in days from Date [facility] Godine[facility] 2016-10-16 19:00:00 No Notes: Same a douglas Weaver [facility] [place] tramadol hydrochloride 50 MG Oral Tablet 2016-10-16 17:26:00 No Notes: Not to exceed 400mg/day. (Same As: Ultram) [facility] acetaminophen-codeine #3 2016-10-16 17:25:00 No Notes: Do not exceed 4gm/day of acetaminophen. (Same as: Tylenol with Codeine # 3) [facility] Vancomycin 2016-10-16 17:25:00 No 2001 mg: infuse over 2.5 hours MEDICATION WASTE Product Size: 1000 mg Product Wasted: ___ mg [facility] Glipizide 5 MG Oral Tablet 2016-10-15 16:47:00 Yes 5 mg = 1 tab, PO, BID-Before Meals, # 30 tab, 1 Refill(s) [facility] apixaban 5 MG Oral Tablet [Eliquis] 2016-10-15 16:46:00 Yes 5 mg = 1 tab, PO, Daily, 0 Refill(s) [facility] osvaldo metoprolol 100 mg oral tablet, extended release 2016-10-15 16:46 :00 Yes 100 mg = 1 tab, PO, Daily, # 30 tab, 0 Refill(s) [facility] pregabalin 50 MG Oral Capsule [Lyrica] 2016-10-15 16:46:00 Yes 50 mg = 1 cap, PO, TID, 0 Refill(s) [facility] tramadol hydrochloride 50 MG Oral Tablet 2016-10-15 16:46:00 Yes 50 mg = 1 tab, PO, Q6H, PRN Pain, # 40 tab, 0 Refill(s) [facility] dronedarone 400 MG Oral Tablet [Multaq] 2016-10-15 16:45:00 Yes 400 mg = 1 tab, PO, BID, # 60 tab, 0 Refill(s) [facility] Esomeprazole 40 MG Enteric Coated Capsule 2016-10-15 16:45:00 Yes 40 mg = 1 cap, PO, Daily, # 30 cap, 0 Refill(s) [facility] Metformin hydrochloride 500 MG Oral Tablet 2016-10-15 16:45:00 Yes 500 mg = 1 tab, PO, BID-Meals, # 30 tab, 0 Refill(s) [facility] celecoxib 200 mg oral capsule 2016-10-15 16:44:00 Yes 200 mg = 1 cap, PO, Daily, # 30 cap, 0 Refill(s) Me morial [facility] isosorbide mononitrate 30 mg oral tablet, extended release 2016-10-15 16:44:00 Yes 30 mg = 1 tab, PO, QAM, # 30 ta b, 0 Refill(s) [facility] Hydrochlorothiazide 25 MG / Triamterene 37.5 MG Oral Capsule 2016-10-15 16:44:00 Yes 1 cap, PO, Daily, # 30 cap, 0 Refill(s) [facility] Thyroxine 2016-10-15 16:29:00 Yes Daily, 0 R efill(s) [facility] Levothyroxine Sodium 2014-06-22 02:59:33 Yes John Sha laby 1 tablet on an empty stomach in the morning [facility] [place] Vitamin D (Ergocalciferol) 2014-06-22 02:59:33 Yes Davi ed Rose Mary 1 capsule [facility] Isosorbide Mononitrate CR 2014-06-22 02:59:33 Yes Dre d Rose Mary 1 tablet [facility] Metformin 2014-06-22 02:59:33 Yes John Bazzi as direct [facility] Triamterene 2014-06-22 02:59:33 Yes Mohbrandon Rose Mary 1 capsule [facility] Xarelto 2014-06-22 02:59:33 Yes Mohamed Rose Mary 1 tablet with food [facility] Amiodarone 2014-06-22 02:59:33 Yes John Rose Mary 1/2 tab [facility] GlipiZIDE 2014-06-22 02:59:33 Yes Mohamed Rose Mary 1 tablet [facility] Warfarin Sodium 2014-06-22 02:59:33 Yes Jhonatanamed Rose Mary 1 tablet [facility] Ciprofloxacin 500 mg BID 7d 2014-06-22 02:59:33 Yes [place] med Rose Mary one tab [facility] Metoprolol 2014-06-22 02:59:33 Yes John Bazzi as directed [facility] Metoprolol Succinate 2014-06-13 00:00:00 Yes Mohamed Rose Mary 1 TABLET [facility] Triamterene-HCTZ 2014-06-13 00:00:00 Yes Mohamed Rose Mary 1 tablet in the morning [facility] Eliquis 2014-06-13 00:00:00 Yes John Bazzi a s directed [facility] Metoprolol 2014-02-23 04:18:31 Yes John Bazzi as directed [facility] Fenofibrate Nanocrystallized (Fenofibrate) 145 Mg TABL ET Fenofibrate Nanocrystallized (Fenofibrate) 145 Mg TABLET Yes 160 Daily [facility] Furosemide (Lasix) 20 Mg TABLET Furosemide (Lasix) 20 Mg TABLET Yes 20 Daily [facility] Glipizide (Glipizide Er) 5 Mg TAB.ER.24 Glipizide (Glipizide Er) 5 Mg TAB.ER.24 Yes Daily [facility] Hydrochlorothiazide Hydrochlorothiazide Yes 12.5 Daily [facility] Isosorbide Mononitrate (Isosorbide Mononitrate Er) 30 Mg TAB.ER.24H Isosorbide Mononitrate (Isosorbide Mononitrate Er) 30 Mg TAB.ER.24H Yes 30 Daily [facility] Levothyroxine Sodium Levothyroxine Sodium Yes 88 Daily [facility] Linzess Linzess Yes 290 As Needed [facility] Metformin Hcl Metformin Hcl Yes 500 Jesse y as needed for Blood Sugar [facility] Metoprolol Succinate Metoprolol Succinate Yes 1 Daily [facility] Lisinopril Lisinopril 2020-06-02 00:00:00 No 20 Nia ly [facility] Mecobalamin (B12 Active) 1,000 Mcg TAB.CHEW Mecobalami n (B12 Active) 1,000 Mcg TAB.CHEW 2020-06-02 00:00:00 No 1 Daily [facility] Apixaban (Eliquis) 5 Mg TAB.DS.PK Apixaban (Eliquis) 5 Mg TAB.DS .PK 2020-04-22 00:00:00 No 1 Twice A Day [facility] Iron Iron 2020-04-21 00:00:00 No 65 Daily [facility] Meclizine Hcl Meclizine Hcl 2020-04-21 00:00:00 No 25 Daily [facility] Amiodarone Hcl Amiodarone Hcl 2020-04-07 00:00:00 No 100 Daily [facility] Eliquis Eliquis 2020-04-07 00:00:00 No 5 Daily [facility] Fenofibrate Fenofibrate 2020-04-07 00:00:00 No 160 D aily [facility] Levothyroxine Sodium Levothyroxine Sodium 2020-04-07 00:00:00 No 88 Daily [facility] Lisinopril (Prinavil / Zestril) 20 Mg TABLET Lisinopri l (Prinavil / Zestril) 20 Mg TABLET 2020-04-07 00:00:00 No 20 Daily [facility] Metoprolol Succinate Metoprolol Succinate 2020-04-07 00:00:00 No 100 Daily [facility] Triamterene/Hydrochlorothiazid (Triamterene-Hctz 37.5- 25 Mg Cp) 1 Each CAPSULE Triamterene/Hydrochlorothiazid (Triamterene-Hctz 37.5-25 Mg Cp) 1 Each CAPSULE 2020-04-07 00:00:00 No 1 Daily [facility] Pregabalin (Lyrica) 50 Mg CAP Pregabalin (Lyrica) 50 Mg CAP 2018-11-11 00:00:00 No 50 Three Times A Day [facility] Vital Signs Vital Name Observation Time Observation Value Comments Source Body Temperature 2020-07-09 15:13:00 97.6 [degF] [facility] BMI (Body Mass Index) 2020-07-07 09:26:00 44.3 kg/m2 [facility] Weight 2020-07-06 16:00:00 250 [lb_av] [facility] Body Temperature 2020-06-10 15:51:00 98.8 [degF] [facility] Weight 2020-06-02 17:55:00 229.31 [lb_av] [facility] BMI (Body Mass Index) 2020-06-02 17:55:00 38.2 kg/m2 [facility] Body Temperature 2020-04-26 16:05:00 98.5 [degF] [facility] BMI (Body Mass Index) 2020-04-20 21:19:00 37.9 kg/m2 [facility] Weight 2020-04-20 12:52:00 228 [lb_av] [facility] Weight 2020-04-19 21:20:00 228 [lb_av] [facility] BMI (Body Mass Index) 2020-04-19 21:20:00 37.9 kg/m2 [facility] Body Temperature 2020-04-09 12:10:00 97.4 [degF] [facility] Weight 2020-04-07 23:59:00 228.03 [lb_av] [facility] BMI (Body Mass Index) 2020-04-07 23:59:00 37.9 kg/m2 [facility] Respitory Rate 2016-10-17 18:00:00 Memori al [facility] Systolic (mm Hg) 2016-10-17 18:00:00 Steffen rial [place] Diastolic (mm Hg) 2016-10-17 18:00:00 Mem o[facility] Heart Rate 2016-10-17 18:00:00 [facility] [place] Temperature Oral (F) 2016-10-17 18:00:00 98.1 F [facility] [place] Systolic (mm Hg) 2016-10-17 14:00:00 Steffen rial [place] Diastolic (mm Hg) 2016-10-17 14:00:00 Mem orial [facility] Respitory Rate 2016-10-17 14:00:00 Memori al [facility] Temperature Oral (F) 2016-10-17 14:00:00 98.1 F [facility] Heart Rate 2016-10-17 14:00:00 [facility] [place] Respitory Rate 2016-10-17 10:00:00 Memori al [facility] Systolic (mm Hg) 2016-10-17 10:00:00 Steffen rial [facility] Diastolic (mm Hg) 2016-10-17 10:00:00 Mem o[facility] [place] Heart Rate 2016-10-17 10:00:00 [facility] Temperature Oral (F) 2016-10-17 10:00:00 98.1 F [facility] BMI Calculated 2016-10-15 16:25:00 Benjamín Tejadaann Height 2016-10-15 16:25:00 154.94 cm [facility] Weight 2016-10-15 16:25:00 [facility] [place] Weight 2014-06-13 14:30:00 [facility] Heart Rate 2014-06-13 14:30:00 [facility] Diastolic (mm Hg) 2014-06-13 14:30:00 Mem orial [facility] Systolic (mm Hg) 2014-06-13 14:30:00 Steffen rial [place] Weight 2014-02-22 18:45:00 [facility] Heart Rate 2014-02-22 18:45:00 [facility] [place] Diastolic (mm Hg) 2014-02-22 18:45:00 Mem orial [facility] Systolic (mm Hg) 2014-02-22 18:45:00 Steffen rial [place] Weight 2013-11-16 18:45:00 [facility] Heart Rate 2013-11-16 18:45:00 [facility] [place] Diastolic (mm Hg) 2013-11-16 18:45:00 Mem [facility] [place] Systolic (mm Hg) 2013-11-16 18:45:00 Steffen rial [place] Procedures Procedure Date / Time Performed Performing Clinician [facility] e Computed tomography of brain without radiopaque contrast 2020-06 00:00:00 [facility] TRANSFUSE NONAUT FROZEN PLASMA IN PERIPH VEIN, PERC 2020-06-03 0 0:00:00 [facility] Computed tomography of brain without radiopaque contrast 2020-05 00:00:00 [facility] EXCISION OF ESOPHAGUS, ENDO, DIAGN 2020-06-02 00:00:00 [facility] TRANSFUSE NONAUT RED BLOOD CELLS IN PERIPH VEIN, PERC 2020-06-02 00:00:00 [facility] INSPECTION OF UPPER INTESTINAL TRACT, ENDO 2020-04-24 00:00:00 [facility] EXCISION OF TRANSVERSE COLON, ENDO, DIAGN 2020-04-24 00:00:00 [facility] DESTRUCTION OF SIGMOID COLON, ENDO 2020-04-24 00:00:00 [facility] Computed tomography of brain without radiopaque contrast 2020-04 00:00:00 [facility] Computed tomography of cervical spine without contrast 4 00:00:00 [facility] EXCISION OF STOMACH, ENDO, DIAGN 2020-04-09 00:00:00 [facility] DESTRUCTION OF STOMACH, ENDO 2020-04-09 00:00:00 [facility] Computed tomography angiography of brain 2020-04-08 00:00:00 [facility] CT angiography of neck 2020-04-08 00:00:00 [facility] US Liver 2020-04-08 00:00:00 [facility] Computed tomography of brain without radiopaque contrast 2020-03 00:00:00 [facility] Computed tomography of chest without contrast 2020-04-07 00:00:0 0 [facility] TRANSFUSE NONAUT RED BLOOD CELLS IN PERIPH VEIN, PERC 2020-04-07 00:00:00 [facility] Appendectomy [facility] Cholecystectomy [facility] Hysterectomy [facility] Lumbar spinal fusion [facility] Plan of Care Planned Activity Planned Date Details Comments Source Instructions Diabetes and Diet [facility] Encounters Start Date/Time End Date/Time Encounter Type Admission Type Attendi [facility] Facility Care Department Encounter ID Source 2020-07-06 18:51:00 2020-07-09 15:47:00 Discharged Inpatient 1 HUE PETERSON [facility] [id number] [facility] 2020-06-02 16:07:00 2020-06-10 16:35:00 Discharged Inpatient 1 HUE PETERSON [facility] [id number] [facility] 2020-04-20 16:01:00 2020-04-26 17:11:00 Discharged Inpatient [facility] [id number] [facility] 2020-04-19 23:00:00 2020-04-20 01:31:00 Departed Emergency Room 1 SHANKAR NEWMAN [facility] [id number] [facility] 2020-04-07 13:13:00 2020-04-09 14:47:00 Discharged Inpatient 1 HUE PETERSON [facility] [id number] [facility] 2020-03-26 12:17:00 2020-03-26 23:59:00 Outpatient Homer Benz OIB OIB [id number] 2019-02-05 04:59:00 2019-02-05 06:13:00 Departed Emergency Room [facility] [id number] [facility] 2018-11-10 08:44:00 2018-11-11 20:25:00 Discharged Inpatient (obs) 1 NEL BONNER [facility] [id number] [facility] 2016-10-16 08:20:00 2016-10-17 15:39:00 Outpatient Omer Gautam SE [facility] [id number] 2014-06-13 10:27:00 2014-06-13 10:27:00 Outpatient Rose Mary JACOBSON [id number] [employer] 2014-06-13 09:30:00 2014-06-13 09:30:00 Outpatient Rose Mary [place] [id number] eClinicalWorks 2014-05-03 14:04:00 2014-05-03 14:04:00 [place] [id number] [employer] 2014-05-03 13:53:00 2014-05-03 13:53:00 Outpatient Rose Mary [place] [id number] [employer]Works 2014-05-03 10:49:00 2014-05-03 10:49:00 [place] [id number] [employer]Works 2014-05-01 15:06:00 2014-05-01 15:06:00 [place] [id number] [employer]Works 2014-02-22 13:45:00 2014-02-22 13:45:00 Outpatient Rose Mary [place] [id number] eClinicalWorks 2014-02-22 13:30:00 2014-02-22 13:30:00 Outpatient Rose Mary [place] [id number] eClinicalWorks Results Test Description Test Time Test Comments Results Result Comments Source Capillary blood glucose measurement by glucometer (mas s/volume) 2020-07-09 14:59:00 Test Item Bedside Glucose (test code = 47810-8) 124 70-120 Meter ID: [id number]ervilleBlood leukocytes automated count (number/volume)2020-07-09 05:28:00* Test Item Value Reference Range Interpretation Comments White Blood Count (test code = 6690-2) 3.88 4.8-10.8 [facility]Blood erythrocytes automated count (number/volume)2020-07-09 05:28:00* Test Item Value Reference Range Interpretation Comments Red Blood Count (test code = 789-8) 2.55 3.6-5.1 [facility]Blood hemoglobin measurement (moles/volume)2020-07-09 05:28:00* Test Item Value Reference Range Interpretation Comments Hemoglobin (test code = 83359-0) 8.1 12.0-16.0 [facility]ugervilleAutomated blood hematocrit (volume fraction)2020-07-09 05:28:00* Test Item Value Reference Range Interpretation Comments Hematocrit (test code = 4544-3) 26.9 34.2-44.1 [facility]ervilleAutomated erythrocyte mean corpuscular wvvswm0086-92-96 05:28:00* Test Item Value Reference Range Interpretation Comments Mean Corpuscular Volume (test code = 787-2) 105.5 81-99 [facility]ervilleAutomated erythrocyte mean corpuscular hemoglobin (mass per erythrocyte)2020-07-09 05:28:00* Test Item Value Reference Range Interpretation Comments Mean Corpuscular Hemoglobin (test code = 785-6) 31.8 28-32 [facility]ervilleAutomated erythrocyte mean corpuscular hemoglobin concentration measurement (mass/volume)2020-07-09 05:28:00* Test Item Value Reference Range Interpretation Comments Mean Corpuscular Hemoglobin Concent (test code = 786-4) 30.1 31-35 [facility] PflugervilleRDW YalXz-Ola5434-68-22 05:28:00* Test Item Value Reference Range Interpretation Comments Red Cell Distribution Width (test code = 08439-1) 21.6 11.7 -14.4 [facility]ervilleAutomated blood platelet count (count/volume)2020-07-09 05:28:00* Test Item Value Reference Range Interpretation Comments Platelet Count (test code = 777-3) 105 140-360 [facility]ervilleAutomated blood segmented neutrophil count as percentage of total xvlifvowbs6150-43-90 05:28:00* Test Item Value Reference Range Interpretation Comments Neutrophils (%) (Auto) (test code = 30700-1) 45.5 38.7-80.0 [facility]ervilleAutomated blood lymphocyte count as percentage ot total qfuwbczvlp8666-58-30 05:28:00* Test Item Value Reference Range Interpretation Comments Lymphocytes (%) (Auto) (test code = 736-9) 32.5 18.0-39.1 [facility]ervilleAutomated blood monocyte count as percentage of total ooelngopaq4536-06-82 05:28:00* Test Item Value Reference Range Interpretation Comments Monocytes (%) (Auto) (test code = 5905-5) 13.7 4.4-11.3 [facility]ervilleAutomated blood eosinophil count as percentage of total bqnqrriquh8152-39-67 05:28:00* Test Item Value Reference Range Interpretation Comments Eosinophils (%) (Auto) (test code = 713-8) 6.2 0.0-6.0 [facility]ervilleAutomated blood basophil count as percentage of total lyukveggoy2597-87-13 05:28:00* Test Item Value Reference Range Interpretation Comments Basophils (%) (Auto) (test code = 706-2) 1.3 0.0-1.0 [facility]flugervilleFluoroscopic procedure less than one hour alrjgyqn2057-03-74 05:28:00* Test Item Value Reference Range Interpretation Comments IM GRANULOCYTES % (test code = IM GRANULOCYTES %) 0.8 0.0- 1.0 [facility]ervilleAutomated blood neutrophil count 2020-07-09 05:28:00* Test Item Value Reference Range Interpretation Comments Neutrophils # (Auto) (test code = 751-8) 1.8 2.1-6.9 [facility]ervilleBlst. [facility] lymphocytes count (number/volume) 2020-07-09 05:28:00* Test Item Value Reference Range Interpretation Comments Lymphocytes # (Auto) (test code = 22738-2) 1.3 1.0-3.2 [facility]ervilleBlst. [facility] monocytes automated count (number/volume)2020-07-09 05:28:00* Test Item Value Reference Range Interpretation Comments Monocytes # (Auto) (test code = 742-7) 0.5 0.2-0.8 [facility]ervilleAutomated blood eosinophil count 2020-07-09 05:28:00* Test Item Value Reference Range Interpretation Comments Eosinophils # (Auto) (test code = 711-2) 0.2 0.0-0.4 [facility]ervilleAutomated blood basophil count (count/volume)2020-07-09 05:28:00* Test Item Value Reference Range Interpretation Comments Basophils # (Auto) (test code = 704-7) 0.1 0.0-0.1 [facility]ervilleFluoroscopic procedure less than one hour mafnihji6220-97-13 05:28:00* Test Item Value Reference Range Interpretation Comments Absolute Immature Granulocyte (auto (lyssa t code = Absolute Immature Granulocyte (auto) 0.03 0-0.1 [facility]ervilleBlood platelets count by estimate (number/volume)2020-07-09 05:28:00* Test Item Value Reference Range Interpretation Comments Platelet Estimate (test code = 37501-7) SLIGHTLY DECREASED [facility] PflugervillePlatelet omwbrtukfi5431-05-24 05:28:00* Test Item Value Reference Range Interpretation Comments Platelet Morphology Comment (test code = 98433-6) NORMAL [facility] anisocytosis detection by light nfragiabah5716-12-68 05:28:00* Test Item Value Reference Range Interpretation Comments Anisocytosis (test code = 702-1) MODERATE [facility]ervilleBlood macrocytes detection by light liegugwqub9003-58-94 05:28:00* Test Item Value Reference Range Interpretation Comments Macrocytosis (test code = 738-5) SLIGHT [facility] dacrocytes detection by light ciidprkuzu7066-12-49 05:28:00* Test Item Value Reference Range Interpretation Comments Tear Drop Cells (test code = 7791-7) FEW [facility]ervilleBlood ovalocytes detection by light eplyiqqwos8398-55-96 05:28:00* Test Item Value Reference Range Interpretation Comments Ovalocytes (test code = 774-0) FEW [facility] PflugervilleRBC mwsgkdxqtx4289-89-90 05:28:00* Test Item Value Reference Range Interpretation Comments Red Cell Morphology Comment (test code = 6742-1) ABNORMAL [facility] sodium measurement (moles/volume)2020-07-09 05:28:00* Test Item Value Reference Range Interpretation Comments Sodium Level (test code = 2951-2) 147 136-145 [facility] Renaissanceerum or plasma potassium measurement (moles/volume)2020-07-09 05:28:00* Test Item Value Reference Range Interpretation Comments Potassium Level (test code = 2823-3) 4.3 3.5-5.1 [facility] Renaissanceerum or plasma chloride measurement (moles/volume)2020-07-09 05:28:00* Test Item Value Reference Range Interpretation Comments Chloride Level (test code = 2075-0) 122 98-107 [facility] Renaissanceerum or plasma carbon dioxide, total measurement (moles/volume)2020-07-09 05:28:00* Test Item Value Reference Range Interpretation Comments Carbon Dioxide Level (test code = 2028-9) 20 22-29 [facility] Renaissanceerum or plasma anion ghj2162-55-28 05:28:00* Test Item Value Reference Range Interpretation Comments Anion Gap (test code = 93865-1) 9.3 8-16 [facility] Renaissanceerum or plasma urea nitrogen measurement (mass/volume)2020-07-09 05:28:00* Test Item Value Reference Range Interpretation Comments Blood Urea Nitrogen (test code = 3094-0) 30 7-26 [facility] Renaissanceerum or plasma creatinine measurement (mass/volume)2020-07-09 05:28:00* Test Item Value Reference Range Interpretation Comments Creatinine (test code = 2160-0) 1.55 0.57-1.11 [facility] Renaissanceerum or plasma urea nitrogen/creatinine mass idnvf5062-73-95 05:28:00* Test Item Value Reference Range Interpretation Comments BUN/Creatinine Ratio (test code = 3097-3) 19 6-25 [facility] PflugervilleEstimated glomerular filtration rate (GFR) cmxgmmtigtvtx3339-15-11 05:28:00* Test Item Value Reference Range Interpretation Comments Estimat Glomerular Filtration Rate (test code = 208054114) 33 >60 Ranges were taken from the National Kidney Disease Education Program and the [facility] literature.Reference ranges:60 or greater: Dxggmw17-92 ( for 3 consecutive months): Chronic kidney disease 15 or less: Kidney failureBaylor Scott & [facility] Center – PflugervilleGlucose ifgvcyqbhmx9085-34-27 05:28:00* Test Item Value Reference Range Interpretation Comments Glucose Level (test code = GXY2368) 96 74-118 [facility] Renaissanceerum or plasma calcium measurement (mass/volume)2020-07-09 05:28:00* Test Item Value Reference Range Interpretation Comments Calcium Level (test code = 54843-4) 8.6 8.4-10.2 [facility]ervillePhosphorus qyrncpwompz2597-32-34 05:28:00 * Test Item Value Reference Range Interpretation Comments Phosphorus Level (test code = WHN3947) 3.0 2.3-4.7 [facility] Renaissanceerum or plasma magnesium measurement (mass/volume)2020-07-09 05:28:00* Test Item Value Reference Range Interpretation Comments Magnesium Level (test code = 09830-2) 2.1 1.3-2.1 [facility] Renaissanceerum or plasma total bilirubin measurement (mass/volume)2020-07-09 05:28:00* Test Item Value Reference Range Interpretation Comments Total Bilirubin (test code = 1975-2) 1.0 0.2-1.2 [facility]ugervilleFluoroscopic procedure less than one hour ivovabzb8586-07-09 05:28:00* Test Item Value Reference Range Interpretation Comments Aspartate Amino Transf (AST/SGOT) (test code = Aspartate Amino Transf (AST/SGOT)) 65 5-34 [facility] Renaissanceerum or plasma alanine aminotransferase measurement (enzymatic activity/volume)2020-07-09 05:28:00* Test Item Value Reference Range Interpretation Comments Alanine Aminotransferase (ALT/SGPT) (test code = 1742-6) 26 0-55 [facility] Renaissanceerum or plasma protein measurement (mass/volume)2020-07-09 05:28:00* Test Item Value Reference Range Interpretation Comments Total Protein (test code = 2885-2) 5.7 6.5-8.1 [facility] Renaissanceerum or plasma albumin measurement (mass/volume)2020-07-09 05:28:00* Test Item Value Reference Range Interpretation Comments Albumin (test code = 1751-7) 2.9 3.5-5.0 [facility]ugervillePlasma globulin measurement (mass/volume) 2020-07-09 05:28:00* Test Item Value Reference Range Interpretation Comments Globulin (test code = 59446-7) 2.8 2.3-3.5 [facility] Renaissanceerum or plasma albumin/globulin mass hfcut7954-12-41 05:28:00* Test Item Value Reference Range Interpretation Comments Albumin/Globulin Ratio (test code = 1759-0) 1.0 0.8-2.0 [facility] Renaissanceerum or plasma alkaline phosphatase measurement (enzymatic activity/volume)2020-07-09 05:28:00* Test Item Value Reference Range Interpretation Comments Alkaline Phosphatase (test code = 6768-6) 67 40-150 [facility] OSZQJ2585[facility]89[facility]15 19:51:00 [facility] [address] [address] Patient Name: AMAURY CONTE MR #: [id number] : 1945 Age/Sex: 75/F Req #: [id number] Adm Physician: HUE PETERSON MD Ordered by: GUILLERMO OLSON MD Report #: [id number] Location: MED/SURG3 Room/Bed: [facility] Procedure: NM/G I BLEED Exam Date: 07/08/20 [...] OLSON MD CHEST SINGLE (PORTABLE) 2020-07-08 09:09:00 [address] [address] Patient Name: AMAURY CONTE MR #: [id number] : 1945 Age/Sex: 75/F Req #: [id number] Adm Physician: HUE PETERSON MD Ordered by: HUE PETERSON MD Report #: [id number] Location: MED/SURG Room/Bed: [facility] Procedure: [id number] DX/CHEST SINGL E (PORTABLE) Exam Date: 07/08/20 [...] TO: HUE PETERSON MD Stool gastrointestinal hemoglobin cyhsygkrn4375-09-29 06:00:00* Test Item Value Reference Range Interpretation Comments Stool Occult Blood (test code = 2335-8) POSITIVE NEGATIVE [facility]ugervilleAutomated reticulocyte count as percentage of total tdcmtggzbcwq7462-25-22 05:00:00* Test Item Value Reference Range Interpretation Comments Percent Reticulocyte Count (test code = 77987-6) 2.5 0.8-2 .2 [facility] plasma iron measurement (mass/volume)2020-07-08 05:00:00* Test Item Value Reference Range Interpretation Comments Iron Level (test code = 2498-4) 157 50-170 [facility]er[facility] plasma iron binding capacity measurement (mass/volume)2020-07-08 05:00:00* Test Item Value Reference Range Interpretation Comments Total Iron Binding Capacity (test code = 2500-7) 333 261-4 78 [facility]er[facility] plasma iron saturation measurement (mass fraction)2020-07-08 05:00:00* Test Item Value Reference Range Interpretation Comments Percent Iron Saturation (test code = 2502-3) 47 15-50 [facility]erum or plasma transferrin measurement (mass/volume)2020-07-08 05:00:00* Test Item Value Reference Range Interpretation Comments Transferrin (test code = 3034-6) 238 180-382 [facility] PflugervilleAmmonia Hbs-sBka2734-20-21 05:00:00* Test Item Value Reference Range Interpretation Comments Ammonia (test code = 44208-8) 87 31-123 [facility]flugervilleBNP Hxy-bLeg9778-08-21 05:00:00* Test Item Value Reference Range Interpretation Comments B-Type Natriuretic Peptide (test code = 31125-5) 291.8 0-100 [facility]er[facility] plasma creatine kinase measurement (enzymatic activity/volume)2020-07-08 05:00:00* Test Item Value Reference Range Interpretation Comments Creatine Kinase (test code = 2157-6) 253 29-168 [facility] Renaissanceerum or plasma creatine kinase MB measurement (mass/volume)2020-07-08 05:00:00* Test Item Value Reference Range Interpretation Comments Creatine Kinase MB (test code = 62043-5) 9.00 0-5.0 [facility]ugervilleTroponin I measurement by highly sensitive enzyme okfsgbtfplp7827-13-08 05:00:00* Test Item Value Reference Range Interpretation Comments Troponin I (test code = 54133-5) 0.043 0-0.300 [facility]ervilleBlood cobalamin (vitamin B12) measurement (mass/volume)2020-07-08 05:00:00* Test Item Value Reference Range Interpretation Comments Vitamin B12 Level (test code = 18938-2) 857 213816 [facility] plasma folate measurement (mass/volume)2020-07-08 05:00:00* Test Item Value Reference Range Interpretation Comments Folate (test code = 2284-8) 15.7 >3.0 A serum folate concentration of less than 3.1 ng/mL isconsidered to represent cl inical deficiency.Performed at: - [facility] [id number] Director: Skip Garner MD, Phone: [phone] Hospital at Renaissanceerum or plasma triglyceride measurement (mass/volume) 2020-07-07 05:35:00* Test Item Value Reference Range Interpretation Comments Triglycerides Level (test code = 2571-8) 69 0-149 [facility]erum [facility] plasma cholesterol measurement (mass/volume)2020-07-07 05:35:00* Test Item Value Reference Range Interpretation Comments Cholesterol Level (test code = 2093-3) 78 0-199 Less than 200 mg/dL Low Unyw839 - 239 mg/dL Borderline Bwfk262 m g/dl and greater High Risk [facility] plasma cholesterol in LDL measurement (mass/volume) 2020-07-07 05:35:00* Test Item Value Reference Range Interpretation Comments LDL Cholesterol (test code = 2089-1) 44 60-130 [facility]erum or plasma cholesterol in HDL measurement (mass/volume)2020-07-07 05:35:00* Test Item Value Reference Range Interpretation Comments HDL Cholesterol (test code = 2085-9) 20 40-60 [facility]erum or plasma total cholesterol/cholesterol in HDL mass itkwj8231-80-89 05:35:00* Test Item Value Reference Range Interpretation Comments Cholesterol/HDL Ratio (test code = 9830-1) 3.9 3.0-3.6 [facility] HospitalFluoroscopic procedure less than one hour dpsljxaa1041-32-44 19:58:00* Test Item Value Reference Range Interpretation Comments Coronavirus (PCR) (test code = Coronavirus (PCR)) NOT DETECTED NOTD ETECTED SARS-CoV-2 PCRHologic Aptima SARS-CoV-2 assay is a nucleic amplification test in tended for the qualitative detection of RNA from SARS-CoV-2 from nasopharyngeal (ROLL FORMING MACHINE SET UP MECHANIC) specimens. It is used under Emergency Use [...] repr at testing oc clinically indicated.Tesing performed by:[facility] [place] [id number], Behzad givens MD, PhDBaylor Scott & [facility] – PflugervilleCHEST SINGLE (PORTABLE) 2020-07-06 17:54:00 [facility] [address] [place] [address] Patient Name: AMAURY CONTE MR #: [id number] : 1945 Age/Sex: 75/F Req #: [id number] Adm Physician: Ordered by: NEL BONNER MD Report #: [id number] Location: ER Room/Bed: Procedure: [id number] DX/CHEST SINGL E (PORTABLE) Exam Date: 07/06/20 Exam Time: 1658 REPORT STATUS: Signed EXAMINATION: CHEST SINGLE (PORTABLE) INDICATION: AMS [id number] COMPARISON: Chest radiograph 06/02/2020 FINDINGS: TUBES [...] COPY TO: NEL BONNER MD CT BRAIN PW3270-43-67 17:25:00 [place] [address] Patient Name: AMAURY CONTE MR #: [id number] : 1945 Age/Sex: 75/F Req #: [id number] Adm Physician: Ordered by: NEL BONNER MD Report #: [id number] Location: ER Room/Bed: Procedure: [id number] CT/CT BRAIN WO Exam Date: 07/06/20 Exam [...] Time (test code = 5902-2) 22.1 11.9-14.5 [facility]flugervilleINR in Platelet poor plasma by Coagulation qsxqv1937-44-89 16:20:00* Test Item Value Reference Range Interpretation Comments Prothromb Time International Ratio (test code = 6301-6) 1.84 Oral Anticoagulant Therapy INR Values:1. Low Intensity Therapy 1.5 - 2.02 . Moderate Intensity Therapy 2.0 - 3.03. High Intensity Therapy(1) 2.5 - 3. 54. High Intensity Therapy(2) 3.0 - 4.05. Panic Value INR > 5.0 [facility] PflugervilleActivated partial thromboplastin time (aPTT) in platelet poor plasma by coagulation lsicr2171-04-80 16:20:00* Test Item Value Reference Range Interpretation Comments Activated Partial Thromboplast Time (test code = 33672-4) 39.4 23.8-35.5 [facility] PflugervilleUrine color lfwkweanztgia1051-06-93 16:20:00* Test Item Value Reference Range Interpretation Comments Urine Color (test code = 5778-6) YELLOW YELLOW [facility] PflugervilleUrine cgorvmq8086-90-78 16:20:00* Test Item Value Reference Range Interpretation Comments Urine Clarity (test code = 81296-4) CLEAR CLEAR [facility] Renaissancepecific gravity of Urine by Test strip 2020-07-06 16:20:00* Test Item Value Reference Range Interpretation Comments Urine Specific Oark (test code = 5811-5) 1.025 1.010-1.02 5 [facility]flugervilleUrine pH measurement by automated test xyhcx6955-25-50 16:20:00* Test Item Value Reference Range Interpretation Comments Urine pH (test code = 98872-1) 7 5-7 [facility] PflugervilleUrine leukocyte esterase detection by acvpcyee3887-68-39 16:20:00* Test Item Value Reference Range Interpretation Comments Urine Leukocyte Esterase (test code = 5799-2) NEGATIVE NEGATIVE [facility] PflugervilleUrine nitrite qdbhhyuox7119-89-57 16:20:00* Test Item Value Reference Range Interpretation Comments Urine Nitrite (test code = 55391-2) NEGATIVE NEGATIVE [facility] PflugervilleUrine protein measurement by test strip (mass/volume)2020-07-06 16:20:00* Test Item Value Reference Range Interpretation Comments Urine Protein (test code = 5804-0) NEGATIVE NEGATIVE [facility] PflugervilleUrine glucose jlntidiau6269-72-77 16:20:00* Test Item Value Reference Range Interpretation Comments Urine Glucose (UA) (test code = 2349-9) NEGATIVE NEGATIVE [facility] PflugervilleUrine ketones detection by automated test zeybh3783-44-78 16:20:00* Test Item Value Reference Range Interpretation Comments Urine Ketones (test code = 98441-7) NEGATIVE NEGATIVE [facility] PflugervilleUrine opiates screening eigx1202-97-60 16:20:00* Test Item Value Reference Range Interpretation Comments Urine Opiates Screen (test code = 23227-2) NEGATIVE NEGATIVE ALL TESTS PERFORMED MANUALLY ON [place] TOX/SEE TESTBaylor Scott & [facility] – PflugervilleBarbiturates screen, kxyyq2114-81-35 16:20:00* Test Item Value Reference Range Interpretation Comments Urine Barbiturates Screen (test code = 127881211) NEGATIVE NEGA TIVE [facility] PflugervilleUrine phencyclidine detection by screening istuvc3993-30-34 16:20:00* Test Item Value Reference Range Interpretation Comments Urine Phencyclidine Screen (test code = 43465-2) NEGATIVE NEGAT RAUDEL [facility] PflugervilleUrine amphetamines detection by screen method > 1000 ng/eN3115-06-52 16:20:00* Test Item Value Reference Range Interpretation Comments Urine Amphetamines Screen (test code = 31986-5) NEGATIVE NEGATI VE [facility] PflugervilleFluoroscopic procedure less than one hour unmzodbq1078-68-67 16:20:00* Test Item Value Reference Range Interpretation Comments Urine Methamphetamines Screen (test code = Urine Metha mphetamines Screen) NEGATIVE NEGATIVE [facility] PflugervilleUrine benzodiazepines detection by screening skzozq2033-21-32 16:20:00* Test Item Value Reference Range Interpretation Comments Urine Benzodiazepines Screen (test code = 69818-7) NEGATIVE NEG ATIVE [facility] PflugervilleUrine cocaine measurement (mass/volume) 2020-07-06 16:20:00* Test Item Value Reference Range Interpretation Comments Urine Cocaine Screen (test code = 3398-5) NEGATIVE NEGATIVE [facility] PflugervilleUrine cannabinoids detection by screening tynhos8564-82-08 16:20:00* Test Item Value Reference Range Interpretation Comments Urine Cannabinoids Screen (test code = 85543-8) NEGATIVE NEGATI VE THESE RESULTS ARE FOR MEDICAL TREATMENT ONLYTHIS REPORT CONTAINS UNCONFIR MED SCREENING RESULTS*POSITIVE RESULTS WILL BE CONFIRMED BY REFERENCE LAB UPON R EQUEST CUT-OFFDRUG CLASS CONCENTRATION ng/mLAmphetamines 1000Methamphetamines 1000Cocaine 300Opiate 300Phencyc lidine 25Cannabinoid 50Barbiturates 300Benzodiazepine 300Methadone 300[facility] PflugervilleUrine methadone ynqcjq2181-88-82 16:20:00* Test Item Value Reference Range Interpretation Comments Urine Methadone Screen (test code = 57539-1) NEGATIVE NEGATIVE THESE RESULTS ARE FOR MEDICAL TREATMENT ONLYTHIS REPORT CONTAINS UNCONFIR MED SCREENING RESULTS*POSITIVE RESULTS WILL BE CONFIRMED BY REFERENCE LAB UPON R EQUEST CUT-OFFDRUG CLASS CONCENTRATION ng/mLAmphetamines 1000Methamphetamines 1000Cocaine Metabolite 300Opiate 300Phencyc lidine 25Cannabinoid 50Barbiturates 300Benzodiazepine 300Methadone 300[facility]ugervilleUrine urobilinogen measurement by test strip (mass/volume)2020-07-06 16:20:00* Test Item Value Reference Range Interpretation Comments Urine Urobilinogen (test code = 60017-5) 0.2 0.2-1 [facility]ervilleUrine total bilirubin measurement (mass/volume)2020-07-06 16:20:00* Test Item Value Reference Range Interpretation Comments Urine Bilirubin (test code = 1978-6) NEGATIVE NEGATIVE [facility]ervilleUrine erythrocytes acrxeufuy8524-34-88 16:20:00* Test Item Value Reference Range Interpretation Comments Urine Blood (test code = 16440-2) NEGATIVE NEGATIVE [facility]ervilleAutomated urine sediment leukocyte count by microscopy (number/high power field)2020-07-06 16:20:00* Test Item Value Reference Range Interpretation Comments Urine WBC (test code = 5821-4) 0-5 0-5 [facility]ugervilleErythrocytes detection in urine sediment by light havcskppch2296-96-65 16:20:00* Test Item Value Reference Range Interpretation Comments Urine RBC (test code = 27794-7) NONE 0-5 [facility]ervilleBacteria detection in urine sediment by light ypcwmhrzzt1832-82-32 16:20:00* Test Item Value Reference Range Interpretation Comments Urine Bacteria (test code = 06028-0) FEW NONE [facility]ervilleEpithelial cells detection in urine sediment by light jqjhbfgqwt1072-88-01 16:20:00* Test Item Value Reference Range Interpretation Comments Urine Epithelial Cells (test code = 50355-6) RARE NONE [facility]ugervilleFluoroscopic procedure less than one hour isamzous8426-41-33 16:20:00* Test Item Value Reference Range Interpretation Comments Lactic Acid Level (test code = Lactic Acid Level) 1.7 0.5- 2.0 [facility]ervilleBlood haauhjz9504-13-12 16:20:00* Test Item Value Reference Range Interpretation Comments Blood Culture (test code = 36582941) NO GROWTH AFTER 48 HOURS [facility] PflugervilleCapillary blood glucose measurement by glucometer (mass/volume)2020-06-10 15:01:00* Test Item Value Reference Range Interpretation Comments Bedside Glucose (test code = 59520-6) 142 70-120 Meter ID: [id number] [facility] & [facility] [place]flugervilleBlood leukocytes automated count (number/volume)2020-06-10 04:15:00* Test Item Value Reference Range Interpretation Comments White Blood Count (test code = 6690-2) 5.32 4.8-10.8 [facility] erythrocytes automated count (number/volume)2020-06-10 04:15:00* Test Item Value Reference Range Interpretation Comments Red Blood Count (test code = 789-8) 2.94 3.6-5.1 [facility]ervilleBlood hemoglobin measurement (moles/volume)2020-06-10 04:15:00* Test Item Value Reference Range Interpretation Comments Hemoglobin (test code = 59835-4) 9.3 12.0-16.0 [facility]ervilleAutomated blood hematocrit (volume fraction)2020-06-10 04:15:00* Test Item Value Reference Range Interpretation Comments Hematocrit (test code = 4544-3) 30.3 34.2-44.1 [facility]ervilleAutomated erythrocyte mean corpuscular yclazb8760-72-04 04:15:00* Test Item Value Reference Range Interpretation Comments Mean Corpuscular Volume (test code = 787-2) 103.1 81-99 [facility]ervilleAutomated erythrocyte mean corpuscular hemoglobin (mass per erythrocyte)2020-06-10 04:15:00* Test Item Value Reference Range Interpretation Comments Mean Corpuscular Hemoglobin (test code = 785-6) 31.6 28-32 [facility]ervilleAutomated erythrocyte mean corpuscular hemoglobin concentration measurement (mass/volume)2020-06-10 04:15:00* Test Item Value Reference Range Interpretation Comments Mean Corpuscular Hemoglobin Concent (test code = 786-4) 30.7 31-35 [facility] PflugervilleRDW SxfTj-Zuo1291-07-24 04:15:00* Test Item Value Reference Range Interpretation Comments Red Cell Distribution Width (test code = 82755-8) 20.4 11.7 -14.4 [facility]ervilleAutomated blood platelet count (count/volume)2020-06-10 04:15:00* Test Item Value Reference Range Interpretation Comments Platelet Count (test code = 777-3) 111 140-360 [facility]ervilleAutomated blood segmented neutrophil count as percentage of total wafoeprwau3198-97-73 04:15:00* Test Item Value Reference Range Interpretation Comments Neutrophils (%) (Auto) (test code = 40843-1) 57.0 38.7-80.0 [facility]ervilleAutomated blood lymphocyte count as percentage ot total qaqwnyfqtr9678-38-90 04:15:00* Test Item Value Reference Range Interpretation Comments Lymphocytes (%) (Auto) (test code = 736-9) 22.9 18.0-39.1 [facility]ervilleAutomated blood monocyte count as percentage of total apffkbctun3550-90-63 04:15:00* Test Item Value Reference Range Interpretation Comments Monocytes (%) (Auto) (test code = 5905-5) 13.0 4.4-11.3 [facility]ervilleAutomated blood eosinophil count as percentage of total drkdhuyrcy6147-04-98 04:15:00* Test Item Value Reference Range Interpretation Comments Eosinophils (%) (Auto) (test code = 713-8) 5.6 0.0-6.0 [facility]ervilleAutomated blood basophil count as percentage of total odtebavajb6363-74-63 04:15:00* Test Item Value Reference Range Interpretation Comments Basophils (%) (Auto) (test code = 706-2) 0.9 0.0-1.0 [facility]ervilleFluoroscopic procedure less than one hour qhkwdttu3851-91-25 04:15:00* Test Item Value Reference Range Interpretation Comments IM GRANULOCYTES % (test code = IM GRANULOCYTES %) 0.6 0.0- 1.0 [facility]ugervilleAutomated blood neutrophil count 2020-06-10 04:15:00* Test Item Value Reference Range Interpretation Comments Neutrophils # (Auto) (test code = 751-8) 3.0 2.1-6.9 [facility]ervilleBlood lymphocytes count (number/volume) 2020-06-10 04:15:00* Test Item Value Reference Range Interpretation Comments Lymphocytes # (Auto) (test code = 38022-3) 1.2 1.0-3.2 [facility]ervilleBlood monocytes automated count (number/volume)2020-06-10 04:15:00* Test Item Value Reference Range Interpretation Comments Monocytes # (Auto) (test code = 742-7) 0.7 0.2-0.8 [facility]ervilleAutomated blood eosinophil count 2020-06-10 04:15:00* Test Item Value Reference Range Interpretation Comments Eosinophils # (Auto) (test code = 711-2) 0.3 0.0-0.4 [facility]ervilleAutomated blood basophil count (count/volume)2020-06-10 04:15:00* Test Item Value Reference Range Interpretation Comments Basophils # (Auto) (test code = 704-7) 0.1 0.0-0.1 [facility]ervilleFluoroscopic procedure less than one hour arcytguu0697-57-45 04:15:00* Test Item Value Reference Range Interpretation Comments Absolute Immature Granulocyte (auto (lyssa t code = Absolute Immature Granulocyte (auto) 0.03 0-0.1 [facility]er[facility] plasma sodium measurement (moles/volume)2020-06-10 04:15:00* Test Item Value Reference Range Interpretation Comments Sodium Level (test code = 2951-2) 142 136-145 [facility] Renaissanceerum or plasma potassium measurement (moles/volume)2020-06-10 04:15:00* Test Item Value Reference Range Interpretation Comments Potassium Level (test code = 2823-3) 3.8 3.5-5.1 [facility] Renaissanceerum or plasma chloride measurement (moles/volume)2020-06-10 04:15:00* Test Item Value Reference Range Interpretation Comments Chloride Level (test code = 2075-0) 110 98-107 [facility] Renaissanceerum or plasma carbon dioxide, total measurement (moles/volume)2020-06-10 04:15:00* Test Item Value Reference Range Interpretation Comments Carbon Dioxide Level (test code = 2028-9) 24 22-29 [facility] Renaissanceerum or plasma anion doq0653-22-02 04:15:00* Test Item Value Reference Range Interpretation Comments Anion Gap (test code = 97058-4) 11.8 8-16 [facility] Renaissanceerum or plasma urea nitrogen measurement (mass/volume)2020-06-10 04:15:00* Test Item Value Reference Range Interpretation Comments Blood Urea Nitrogen (test code = 3094-0) 14 7-26 [facility] Renaissanceerum or plasma creatinine measurement (mass/volume)2020-06-10 04:15:00* Test Item Value Reference Range Interpretation Comments Creatinine (test code = 2160-0) 0.95 0.57-1.11 [facility] Renaissanceerum or plasma urea nitrogen/creatinine mass ofkax5865-43-43 04:15:00* Test Item Value Reference Range Interpretation Comments BUN/Creatinine Ratio (test code = 3097-3) 15 6-25 [facility] PflugervilleEstimated glomerular filtration rate (GFR) sxoovqboonwrl6478-82-14 04:15:00* Test Item Value Reference Range Interpretation Comments Estimat Glomerular Filtration Rate (test code = 641776962) 57 >60 Ranges were taken from the National Kidney Disease Education Program and the [facility] [employer] literature.Reference ranges:60 or greater: Uwtdzb88-15 ( for 3 consecutive months): Chronic kidney disease 15 or less: Kidney failureBaylor Scott & White Medical Center – PflugervilleGlucose qbvyofwdlzo2810-94-79 04:15:00* Test Item Value Reference Range Interpretation Comments Glucose Level (test code = OLJ6777) 122 74-118 [facility] Renaissanceerum or plasma calcium measurement (mass/volume)2020-06-10 04:15:00* Test Item Value Reference Range Interpretation Comments Calcium Level (test code = 09033-2) 8.3 8.4-10.2 [facility] Renaissanceerum or plasma total bilirubin measurement (mass/volume)2020-06-10 04:15:00* Test Item Value Reference Range Interpretation Comments Total Bilirubin (test code = 1975-2) 1.2 0.2-1.2 [facility]ervilleFluoroscopic procedure less than one hour ocselczw6594-18-64 04:15:00* Test Item Value Reference Range Interpretation Comments Aspartate Amino Transf (AST/SGOT) (test code = Aspartate Amino Transf (AST/SGOT)) 28 5-34 [facility] Renaissanceerum or plasma alanine aminotransferase measurement (enzymatic activity/volume)2020-06-10 04:15:00* Test Item Value Reference Range Interpretation Comments Alanine Aminotransferase (ALT/SGPT) (test code = 1742-6) 14 0-55 [facility] Renaissanceerum or plasma protein measurement (mass/volume)2020-06-10 04:15:00* Test Item Value Reference Range Interpretation Comments Total Protein (test code = 2885-2) 5.6 6.5-8.1 [facility] Renaissanceerum or plasma albumin measurement (mass/volume)2020-06-10 04:15:00* Test Item Value Reference Range Interpretation Comments Albumin (test code = 1751-7) 2.6 3.5-5.0 [facility]ervillePlasma globulin measurement (mass/volume) 2020-06-10 04:15:00* Test Item Value Reference Range Interpretation Comments Globulin (test code = 44330-3) 3.0 2.3-3.5 [facility] Renaissanceerum or plasma albumin/globulin mass xolrz5852-94-20 04:15:00* Test Item Value Reference Range Interpretation Comments Albumin/Globulin Ratio (test code = 1759-0) 0.9 0.8-2.0 [facility] Renaissanceerum or plasma alkaline phosphatase measurement (enzymatic activity/volume)2020-06-10 04:15:00* Test Item Value Reference Range Interpretation Comments Alkaline Phosphatase (test code = 6768-6) 92 40-150 [facility] PflugervillePhosphorus idavfdvvjfj1744-34-79 06:15:00 * Test Item Value Reference Range Interpretation Comments Phosphorus Level (test code = ZDB8145) 2.7 2.3-4.7 [facility] Renaissanceerum [facility] plasma magnesium measurement (mass/volume)2020-06-07 06:15:00* Test Item Value Reference Range Interpretation Comments Magnesium Level (test code = 04536-7) 1.6 1.3-2.1 [facility] RenaissanceMALL BOWEL XSMHLD6743-31-68 16:17:00 [facility] [address] [address] Patient Name: AMAURY CONTE MR #: [id number] : 1945 Age/Sex: 74/F Req #: [id number] Adm Physician: HUE PETERSON MD Ordered by: GUILLERMO OLSON MD Report #: [id number] Location: MED/SURG3 Room[facility]Bed: 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 Preliminary image was obtained before administration of contrast and serial overhead images were obtained after administration of oral barium. Fluoroscopy was performed and spot images were obtained. 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 STOMACH: [...] DANIELS MD Electronically Sign ed By: QUINTEN DANEILS MD on 06/06/20 1622 Transcribed By: JUAN on 06/06/20 16 22 COPY TO: GUILLERMO OLSON MD Urine color determination 2020-06-06 01:20:00* Test Item Value Reference Range Interpretation Comments Urine Color (test code = 5778-6) YELLOW YELLOW [facility] PflugervilleUrine ngmtbfe4869-55-18 01:20:00* Test Item Value Reference Range Interpretation Comments Urine Clarity (test code = 06639-0) CLEAR CLEAR [facility] Renaissancepecific gravity of Urine by Test strip 2020-06-06 01:20:00* Test Item Value Reference Range Interpretation Comments Urine Specific Oark (test code = 5811-5) 1.020 1.010-1.02 5 [facility]ervilleUrine pH measurement by automated test kmvvf9984-69-81 01:20:00* Test Item Value Reference Range Interpretation Comments Urine pH (test code = 79863-4) 5.5 5-7 [facility] PflugervilleUrine leukocyte esterase detection by dbbramix5696-32-58 01:20:00* Test Item Value Reference Range Interpretation Comments Urine Leukocyte Esterase (test code = 5799-2) MODERATE NEGATIVE [facility]ervilleUrine nitrite rhfzuwayh9031-68-85 01:20:00* Test Item Value Reference Range Interpretation Comments Urine Nitrite (test code = 68800-2) NEGATIVE NEGATIVE [facility] P[facility]ugervilleUrine protein measurement by test strip (mass/volume)2020-06-06 01:20:00* Test Item Value Reference Range Interpretation Comments Urine Protein (test code = 5804-0) NEGATIVE NEGATIVE [facility]ervilleUrine glucose aisehkrje1187-69-37 01:20:00* Test Item Value Reference Range Interpretation Comments Urine Glucose (UA) (test code = 2349-9) NEGATIVE NEGATIVE [facility] P[facility]ugervilleUrine ketones detection by automated test iktdw7174-50-44 01:20:00* Test Item Value Reference Range Interpretation Comments Urine Ketones (test code = 84160-0) NEGATIVE NEGATIVE [facility]ervilleUrine urobilinogen measurement by test strip (mass/volume)2020-06-06 01:20:00* Test Item Value Reference Range Interpretation Comments Urine Urobilinogen (test code = 57235-4) 4.0 0.2-1 [facility]ervilleUrine total bilirubin measurement (mass/volume)2020-06-06 01:20:00* Test Item Value Reference Range Interpretation Comments Urine Bilirubin (test code = 1978-6) NEGATIVE NEGATIVE [facility] P[facility]ugervilleUrine erythrocytes vhcqortqf1302-25-25 01:20:00* Test Item Value Reference Range Interpretation Comments Urine Blood (test code = 56285-0) MODERATE NEGATIVE [facility] PflugervilleAutomated urine sediment leukocyte count by microscopy (number/high power field)2020-06-06 01:20:00* Test Item Value Reference Range Interpretation Comments Urine WBC (test code = 5821-4) 21-50 0-5 [facility]ugervilleErythrocytes detection in urine sediment by light jjqnwvmbug5423-52-29 01:20:00* Test Item Value Reference Range Interpretation Comments Urine RBC (test code = 62763-0) 6-10 0-5 [facility]ugervilleBacteria detection in urine sediment by light gpgyldmuuz1650-40-12 01:20:00* Test Item Value Reference Range Interpretation Comments Urine Bacteria (test code = 28433-4) MODERATE NONE [facility] PflugervilleEpithelial cells detection in urine sediment by light ztxmcjxprl2737-03-47 01:20:00* Test Item Value Reference Range Interpretation Comments Urine Epithelial Cells (test code = 57875-4) MODERATE NONE [facility] PflugervilleBacterial urine hrhbatd6720-87-87 01:20:00* Test Item Value Reference Range Interpretation Comments Urine Culture (test code = 630-4) ENTEROCOCCUS FAECALIS [facility] PflugervilleBacterial urine dijtgoc3237-08-39 01:20:00* Test Item Value Reference Range Interpretation Comments Urine Culture (test code = 630-4) ENTEROCOCCUS FAECALIS [facility] Renaissanceerum tissue transglutaminase IgA antibody wwfcjdmqc5672-80-52 13:26:00* Test Item Value Reference Range Interpretation Comments Tissue Transglutaminase IgA Ab (test code = 68462-7) <2 0 -3 Negative 0 - 3 Weak Positive 4 - 10 Positive >10 Tissue Transglutaminase (tTG) has been identified as the endomysial antigen. Studies have demonstr- ated that endomysial IgA antibodies have over 99% specif icity for gluten sensitive enteropathy.[facility] Serum or plasma IgA measurement (mass/volume)2020-06-05 13:26:00* Test Item Value Reference Range Interpretation Comments Immunoglobulin A (test code = 2458-8) 650 58-941 Performed at: - Lab[address] [id number] Car Sales Representative: Harish Henriquez MD, Phone: [phone] at: [facility]Co[address] [id number] Director: Skip Garner MD, Ph one: [phone] Hospital at Renaissanceerum endomysium IgA antibody yrojuofet7326-68-55 13:26:00* Test Item Value Reference Range Interpretation Comments Endomysial IgA Antibody (test code = 89617-4) Negative Negative [facility] Renaissanceerum tissue transglutaminase IgA antibody fasoccjti7363-57-28 13:26:00* Test Item Value Reference Range Interpretation Comments Tissue Transglutaminase IgA Ab (test code = 33415-6) <2 0 -3 Negative 0 - 3 Weak Positive 4 - 10 Positive >10 Tissue Transglutaminase (tTG) has been identified as the endomysial antigen. Studies have demonstr- ated that endomysial IgA antibodies have over 99% specif icity for gluten sensitive enteropathy.[facility] Serum or plasma IgA measurement (mass/volume)2020-06-05 13:26:00* Test Item Value Reference Range Interpretation Comments Immunoglobulin A (test code = 2458-8) 914 69-197 Performed at: [employer] [address] [id number] Car Sales Representative: Harish Henriquez MD, Phone: [phone] at: [employer] [facility] [address] [id number] Director: Skip Garner MD, Ph one: [phone] Hospital at Renaissanceerum endomysium IgA antibody okocvsknb7214-22-58 13:26:00* Test Item Value Reference Range Interpretation Comments Endomysial IgA Antibody (test code = 50549-2) Negative Negative [facility] PflugervilleProthrombin time (PT) in platelet poor plasma by coagulation ezkwy1743-28-73 05:10:00* Test Item Value Reference Range Interpretation Comments Prothrombin Time (test code = 5902-2) 18.1 11.9-14.5 [facility]flugervilleINR in Platelet poor plasma by Coagulation whwbv1962-72-55 05:10:00* Test Item Value Reference Range Interpretation Comments Prothromb Time International Ratio (test code = 6301-6) 1.41 Oral Anticoagulant Therapy INR Values:1. Low Intensity Therapy 1.5 - 2.02 . Moderate Intensity Therapy 2.0 - 3.03. High Intensity Therapy(1) 2.5 - 3. 54. High Intensity Therapy(2) 3.0 - 4.05. Panic Value INR > 5.0 [facility] SECOT6005-79-44 19:38:00 [facility] [address] [address] Patient Name: AMAURY CONTE MR #: [id number] : 1945 Age/Sex: 74/F Req #: [id number] Adm Physician: HUE PETERSON MD Ordered by: GUILLERMO OLSON MD Report #: [id number] Location: MED/SURG3 Room/Bed: [facility] Procedure: [id number] NM/G I BLEED Exam Date: 06/04/20 Exam [...] Activated Partial Thromboplast Time (test code = 52287-6) 38.7 23.8-35.5 [facility]flugervilleAmmonia Xrv-zSju3963-48-18 06:10:00* Test Item Value Reference Range Interpretation Comments Ammonia (test code = 91467-3) 121 31-123 [facility] Renaissanceer[facility] or plasma creatine kinase measurement (enzymatic activity/volume)2020-06-03 06:26:00* Test Item Value Reference Range Interpretation Comments Creatine Kinase (test code = 2157-6) 44 29-168 [facility] Renaissanceerum or plasma creatine kinase MB measurement (mass/volume)2020-06-03 06:26:00* Test Item Value Reference Range Interpretation Comments Creatine Kinase MB (test code = 21296-6) 1.50 0-5.0 [facility]ugervilleTroponin I measurement by highly sensitive enzyme mkqtjwxxmpk7852-99-69 06:26:00* Test Item Value Reference Range Interpretation Comments Troponin I (test code = 90974-5) 0.059 0-0.300 [facility] PflugervilleAutomated reticulocyte count as percentage of total yufpqxaiyytu3325-43-19 20:30:00* Test Item Value Reference Range Interpretation Comments Percent Reticulocyte Count (test code = 32656-9) 4.7 0.8-2 .2 [facility] Renaissanceer[facility] or plasma iron measurement (mass/volume)2020-06-02 20:30:00* Test Item Value Reference Range Interpretation Comments Iron Level (test code = 2498-4) 31 50-170 [facility] Renaissanceerum or plasma iron binding capacity measurement (mass/volume)2020-06-02 20:30:00* Test Item Value Reference Range Interpretation Comments Total Iron Binding Capacity (test code = 2500-7) 440 261-4 78 [facility] Renaissanceerum or plasma iron saturation measurement (mass fraction)2020-06-02 20:30:00* Test Item Value Reference Range Interpretation Comments Percent Iron Saturation (test code = 2502-3) 7 15-50 [facility] Renaissanceerum or plasma transferrin measurement (mass/volume)2020-06-02 20:30:00* Test Item Value Reference Range Interpretation Comments Transferrin (test code = 3034-6) 314 180-382 [facility] Renaissanceerum or plasma ferritin measurement (mass/volume)2020-06-02 20:30:00* Test Item Value Reference Range Interpretation Comments Ferritin (test code = 2276-4) 11.95 4.63-204.00 [facility]ugervilleBlood cobalamin (vitamin B12) measurement (mass/volume)2020-06-02 20:30:00* Test Item Value Reference Range Interpretation Comments Vitamin B12 Level (test code = 44516-5) 1051 213816 [facility] Renaissanceer[facility] or plasma folate measurement (mass/volume)2020-06-02 20:30:00* Test Item Value Reference Range Interpretation Comments Folate (test code = 2284-8) >20.0 >3.0 A serum folate concentration of less than 3.1 ng/mL isconsidered to represent cl inical deficiency.Performed at: - [facility]Co[address] [id number] Director: Skip Garner MD, Phone: [phone] Scott & White Medical Center – PflugervilleBlood pdgvpng6067-07-69 20:30:00* Test Item Value Reference Range Interpretation Comments Blood Culture (test code = 10115835) NO GROWTH AFTER 5 DAYS, FINAL REPORT [facility] Renaissanceer[facility] or plasma ferritin measurement (mass/volume)2020-06-02 20:30:00* Test Item Value Reference Range Interpretation Comments Ferritin (test code = 2276-4) 11.95 4.63-204.00 [facility] PflugervilleCT BRAIN HO2056-08-59 15:25:00 [facility] [address] [place] [address] Patient Name: AMAURY CONTE MR #: [id number] : 1945 Age/Sex: 74/F Req #: [id number] Adm Physician: HUE PETERSON MD Ordered by: NEL BONNER MD Report #: [id number] Location: MED/SURG3 Room/Bed: [facility] [place] Procedure: [id number] CT/CT BRAIN WO Exam Date: 06/02/20 Exam [...] NEL BONNER MD CHEST SINGLE (PORTABLE)2020-06-02 15:22:[address] [place], [place] [address] Patient Name: AMAURY CONTE MR #: [id number] : 1945 Age/Sex: 74/F Req #: [id number] Adm Physician: HUE PETERSON MD Ordered by: NEL BONNER MD Report #: [id number] Location: MED/SURG3 Room/Bed: [facility] [place] Procedure: [id number] DX/CHEST SINGL E (PORTABLE) Exam Date: 06/02/20 [...] MD Fluoroscopic procedure less than one hour nkujligi8758-04-79 15:10:00* Test Item Value Reference Range Interpretation Comments Lactic Acid Level (test code = Lactic Acid Level) 1.4 0.5- 2.0 [facility]BNP Spe-sCvw3488-19-16 15:10:00* Test Item Value Reference Range Interpretation Comments B-Type Natriuretic Peptide (test code = 13443-7) 199.5 0-100 [facility]ervilleFluoroscopic procedure less than one hour qphtsyni0714-47-87 14:40:00* Test Item Value Reference Range Interpretation Comments Coronavirus (PCR) (test code = Coronavirus (PCR)) NOT DETECTED NOTD ETECTED [place] Aptima SARS-CoV-2 assay is a nucleic amplification test intended for the qualitative detection of RNA from SARS-CoV-2 from nasopharyngeal (ROLL FORMING MACHINE SET UP MECHANIC) specimens . It is used under Emergency [...] for reprat testing oc clinically indicated.Tesing performed by:[facility] [address] [place] [address] [id number], Behzad Alejandre MD, PhD [facility]ervilleBlood platelets count by estimate (number/volume)2020-06-02 14:30:00* Test Item Value Reference Range Interpretation Comments Platelet Estimate (test code = 55549-4) ADEQUATE [facility]ervillePlatelet mfmclotldy1408-53-41 14:30:00* Test Item Value Reference Range Interpretation Comments Platelet Morphology Comment (test code = 09451-6) NORMAL [facility]ervilleBlood hypochromia detection by light iacwklftio6972-68-40 14:30:00* Test Item Value Reference Range Interpretation Comments Hypochromasia (test code = 728-6) SLIGHT [facility]ervilleBlood anisocytosis detection by light dzdwlwpzlt1590-94-60 14:30:00* Test Item Value Reference Range Interpretation Comments Anisocytosis (test code = 702-1) SLIGHT [facility] thyrotropin measurement by detection limit <= 0.005 miu/l (units/volume)2020-06-02 14:30:00* Test Item Value Reference Range Interpretation Comments Thyroid Stimulating Hormone (TSH) (test code = 78381-8) 2.981 0.350-4.940 [facility]ervilleBlood hypochromia detection by light ivlkhxkuqj1929-87-43 14:30:00* Test Item Value Reference Range Interpretation Comments Hypochromasia (test code = 728-6) SLIGHT [facility] plasma thyrotropin measurement by detection limit <= 0.005 miu/l (units/volume)2020-06-02 14:30:00* Test Item Value Reference Range Interpretation Comments Thyroid Stimulating Hormone (TSH) (test code = 05842-0) 2.981 0.350-4.940 [facility]flugervilleCapillary blood glucose measurement by glucometer (mass/volume)2020-04-26 15:13:00* Test Item Value Reference Range Interpretation Comments Bedside Glucose (test code = 27577-4) 132 70-120 Meter ID: [id number] [facility]ervilleBlood leukocytes automated count (number/volume)2020-04-26 04:55:00* Test Item Value Reference Range Interpretation Comments White Blood Count (test code = 6690-2) 3.85 4.8-10.8 [facility]ervilleBlst. [facility] erythrocytes automated count (number/volume)2020-04-26 04:55:00* Test Item Value Reference Range Interpretation Comments Red Blood Count (test code = 789-8) 2.59 3.6-5.1 [facility]ervilleBlood hemoglobin measurement (moles/volume)2020-04-26 04:55:00* Test Item Value Reference Range Interpretation Comments Hemoglobin (test code = 30665-5) 8.2 12.0-16.0 [facility]ugervilleAutomated blood hematocrit (volume fraction)2020-04-26 04:55:00* Test Item Value Reference Range Interpretation Comments Hematocrit (test code = 4544-3) 27.3 34.2-44.1 [facility]ervilleAutomated erythrocyte mean corpuscular xsvmpu7425-78-50 04:55:00* Test Item Value Reference Range Interpretation Comments Mean Corpuscular Volume (test code = 787-2) 105.4 81-99 [facility]ugervilleAutomated erythrocyte mean corpuscular hemoglobin (mass per erythrocyte)2020-04-26 04:55:00* Test Item Value Reference Range Interpretation Comments Mean Corpuscular Hemoglobin (test code = 785-6) 31.7 28-32 [facility]ervilleAutomated erythrocyte mean corpuscular hemoglobin concentration measurement (mass/volume)2020-04-26 04:55:00* Test Item Value Reference Range Interpretation Comments Mean Corpuscular Hemoglobin Concent (test code = 786-4) 30.0 31-35 [facility] PflugervilleRDW WxlXi-Hib9631-50-10 04:55:00* Test Item Value Reference Range Interpretation Comments Red Cell Distribution Width (test code = 82901-0) 21.0 11.7 -14.4 [facility]ervilleAutomated blood platelet count (count/volume)2020-04-26 04:55:00* Test Item Value Reference Range Interpretation Comments Platelet Count (test code = 777-3) 120 140-360 [facility]flugervilleAutomated blood segmented neutrophil count as percentage of total qilvyytfdg6910-20-40 04:55:00* Test Item Value Reference Range Interpretation Comments Neutrophils (%) (Auto) (test code = 72363-6) 54.5 38.7-80.0 [facility]ervilleAutomated blood lymphocyte count as percentage ot total aqictjsssa7347-89-91 04:55:00* Test Item Value Reference Range Interpretation Comments Lymphocytes (%) (Auto) (test code = 736-9) 24.2 18.0-39.1 [facility]ervilleAutomated blood monocyte count as percentage of total iusfvaptsi6652-86-79 04:55:00* Test Item Value Reference Range Interpretation Comments Monocytes (%) (Auto) (test code = 5905-5) 13.8 4.4-11.3 [facility]ervilleAutomated blood eosinophil count as percentage of total uodpmydbbm1012-49-62 04:55:00* Test Item Value Reference Range Interpretation Comments Eosinophils (%) (Auto) (test code = 713-8) 5.7 0.0-6.0 [facility]ervilleAutomated blood basophil count as percentage of total jpaymqbyob3349-18-85 04:55:00* Test Item Value Reference Range Interpretation Comments Basophils (%) (Auto) (test code = 706-2) 0.8 0.0-1.0 [facility]ervilleFluoroscopic procedure less than one hour ilhvbkax9764-06-15 04:55:00* Test Item Value Reference Range Interpretation Comments IM GRANULOCYTES % (test code = IM GRANULOCYTES %) 1.0 0.0- 1.0 [facility]ervilleAutformerly [facility], [facility] morgantoned blood neutrophil count 2020-04-26 04:55:00* Test Item Value Reference Range Interpretation Comments Neutrophils # (Auto) (test code = 751-8) 2.1 2.1-6.9 [facility]ervilleBlood lymphocytes count (number/volume) 2020-04-26 04:55:00* Test Item Value Reference Range Interpretation Comments Lymphocytes # (Auto) (test code = 98400-6) 0.9 1.0-3.2 [facility]ugervilleBlst. [facility] monocytes automated count (number/volume)2020-04-26 04:55:00* Test Item Value Reference Range Interpretation Comments Monocytes # (Auto) (test code = 742-7) 0.5 0.2-0.8 [facility]flugervilleAutomated blood eosinophil count 2020-04-26 04:55:00* Test Item Value Reference Range Interpretation Comments Eosinophils # (Auto) (test code = 711-2) 0.2 0.0-0.4 [facility]flugervilleAutomated blood basophil count (count/volume)2020-04-26 04:55:00* Test Item Value Reference Range Interpretation Comments Basophils # (Auto) (test code = 704-7) 0.0 0.0-0.1 [facility]flugervilleFluoroscopic procedure less than one hour uppqfbfp1520-43-58 04:55:00* Test Item Value Reference Range Interpretation Comments Absolute Immature Granulocyte (auto (lyssa t code = Absolute Immature Granulocyte (auto) 0.04 0-0.1 [facility] PflugervilleBlst. franc[facility] center platelets count by estimate (number/volume)2020-04-26 04:55:00* Test Item Value Reference Range Interpretation Comments Platelet Estimate (test code = 29978-1) SLIGHTLY DECREASED [facility] PflugervillePlatelet xqnsslplkd9155-22-31 04:55:00* Test Item Value Reference Range Interpretation Comments Platelet Morphology Comment (test code = 41801-5) NORMAL [facility] polychromasia detection by light kmsstmxmmt7172-60-19 04:55:00* Test Item Value Reference Range Interpretation Comments Polychromasia (test code = 19145-3) FEW [facility] anisocytosis detection by light kzklbbjkew3891-17-33 04:55:00* Test Item Value Reference Range Interpretation Comments Anisocytosis (test code = 702-1) MODERATE [facility] macrocytes detection by light qzlxwajfzs5902-23-53 04:55:00* Test Item Value Reference Range Interpretation Comments Macrocytosis (test code = 738-5) MODERATE [facility] PflugervilleRBC gdaqkbpovt0473-71-11 04:55:00* Test Item Value Reference Range Interpretation Comments Red Cell Morphology Comment (test code = 6742-1) ABNORMAL [facility]er[facility] or plasma sodium measurement (moles/volume)2020-04-26 04:55:00* Test Item Value Reference Range Interpretation Comments Sodium Level (test code = 2951-2) 142 136-145 [facility] Renaissanceerum or plasma potassium measurement (moles/volume)2020-04-26 04:55:00* Test Item Value Reference Range Interpretation Comments Potassium Level (test code = 2823-3) 5.0 3.5-5.1 Results called to MARIEL HASSAN RN at 0644 on 04/26/20 by Berta Lambert. RB [place].[facility] Renaissanceerum or plasma chloride measurement (moles/volume)2020-04-26 04:55:00* Test Item Value Reference Range Interpretation Comments Chloride Level (test code = 2075-0) 113 98-107 [facility] Renaissanceerum or plasma carbon dioxide, total measurement (moles/volume)2020-04-26 04:55:00* Test Item Value Reference Range Interpretation Comments Carbon Dioxide Level (test code = 2028-9) 26 22-29 [facility] Renaissanceerum or plasma anion tpi4961-90-63 04:55:00* Test Item Value Reference Range Interpretation Comments Anion Gap (test code = 26957-7) 8.0 8-16 [facility] Renaissanceerum or plasma urea nitrogen measurement (mass/volume)2020-04-26 04:55:00* Test Item Value Reference Range Interpretation Comments Blood Urea Nitrogen (test code = 3094-0) 27 7-26 [facility] Renaissanceerum or plasma creatinine measurement (mass/volume)2020-04-26 04:55:00* Test Item Value Reference Range Interpretation Comments Creatinine (test code = 2160-0) 1.23 0.57-1.11 [facility] Renaissanceerum or plasma urea nitrogen/creatinine mass oaire7534-23-13 04:55:00* Test Item Value Reference Range Interpretation Comments BUN/Creatinine Ratio (test code = 3097-3) 22 6-25 [facility] PflugervilleEstimated glomerular filtration rate (GFR) yvbgttrbmpflo1074-34-19 04:55:00* Test Item Value Reference Range Interpretation Comments Estimat Glomerular Filtration Rate (test code = 128062903) 43 >60 Ranges were taken from the National Kidney Disease Education Program and the [facility] literature.Reference ranges:60 or greater: Anpdpj78-14 ( for 3 consecutive months): Chronic kidney disease 15 or less: Kidney failureBaylor Scott & White Medical Center – PflugervilleGlucose xovclskuzjc6627-94-67 04:55:00* Test Item Value Reference Range Interpretation Comments Glucose Level (test code = LYU1098) 106 74-118 [facility] Renaissanceerum or plasma calcium measurement (mass/volume)2020-04-26 04:55:00* Test Item Value Reference Range Interpretation Comments Calcium Level (test code = 59752-4) 8.3 8.4-10.2 [facility] PflugervilleBlood polychromasia detection by light yzmeiyegwa3230-67-99 04:55:00* Test Item Value Reference Range Interpretation Comments Polychromasia (test code = 00332-0) FEW [facility] PflugervilleBlood macrocytes detection by light syenxpufsl2403-63-21 04:55:00* Test Item Value Reference Range Interpretation Comments Macrocytosis (test code = 738-5) MODERATE [facility] PflugervilleRBC gtroakgrun1211-78-46 04:55:00* Test Item Value Reference Range Interpretation Comments Red Cell Morphology Comment (test code = 6742-1) ABNORMAL [facility] PflugervilleBlood polychromasia detection by light yywzsucsij9021-92-39 04:55:00* Test Item Value Reference Range Interpretation Comments Polychromasia (test code = 11113-9) FEW [facility] PflugervilleUrine color kxphesgmlbgbz2309-26-47 01:50:00* Test Item Value Reference Range Interpretation Comments Urine Color (test code = 5778-6) YELLOW YELLOW [facility] PflugervilleUrine gyygnsl3183-66-09 01:50:00* Test Item Value Reference Range Interpretation Comments Urine Clarity (test code = 06280-4) SL CLOUDY CLEAR [facility] Renaissancepecific gravity of Urine by Test strip 2020-04-26 01:50:00* Test Item Value Reference Range Interpretation Comments Urine Specific Oark (test code = 5811-5) 1.025 1.010-1.02 5 [facility] PflugervilleUrine pH measurement by automated test mumlt2227-94-43 01:50:00* Test Item Value Reference Range Interpretation Comments Urine pH (test code = 95554-2) 6 5-7 [facility] PflugervilleUrine leukocyte esterase detection by jgeuptym1892-72-63 01:50:00* Test Item Value Reference Range Interpretation Comments Urine Leukocyte Esterase (test code = 5799-2) NEGATIVE NEGATIVE [facility] PflugervilleUrine nitrite epimmjpwi4177-37-14 01:50:00* Test Item Value Reference Range Interpretation Comments Urine Nitrite (test code = 48958-0) NEGATIVE NEGATIVE [facility] PflugervilleUrine protein measurement by test strip (mass/volume)2020-04-26 01:50:00* Test Item Value Reference Range Interpretation Comments Urine Protein (test code = 5804-0) NEGATIVE NEGATIVE [facility] PflugervilleUrine glucose obcoawzks9261-60-91 01:50:00* Test Item Value Reference Range Interpretation Comments Urine Glucose (UA) (test code = 2349-9) NEGATIVE NEGATIVE [facility] PflugervilleUrine ketones detection by automated test ubvhr0649-41-45 01:50:00* Test Item Value Reference Range Interpretation Comments Urine Ketones (test code = 77665-0) NEGATIVE NEGATIVE [facility] PflugervilleUrine urobilinogen measurement by test strip (mass/volume)2020-04-26 01:50:00* Test Item Value Reference Range Interpretation Comments Urine Urobilinogen (test code = 61292-6) 1 0.2-1 [facility]ervilleUrine total bilirubin measurement (mass/volume)2020-04-26 01:50:00* Test Item Value Reference Range Interpretation Comments Urine Bilirubin (test code = 1978-6) NEGATIVE NEGATIVE [facility] PflugervilleUrine erythrocytes ofpnrmzzj4398-51-19 01:50:00* Test Item Value Reference Range Interpretation Comments Urine Blood (test code = 31135-1) NEGATIVE NEGATIVE [facility] PflugervilleAutomated urine sediment leukocyte count by microscopy (number/high power field)2020-04-26 01:50:00* Test Item Value Reference Range Interpretation Comments Urine WBC (test code = 5821-4) 21-50 0-5 [facility] PflugervilleErythrocytes detection in urine sediment by light zoogrpnaoc0865-63-66 01:50:00* Test Item Value Reference Range Interpretation Comments Urine RBC (test code = 90369-5) >50 0-5 [facility]ervilleBacteria detection in urine sediment by light qdhbhszlrz0368-61-73 01:50:00* Test Item Value Reference Range Interpretation Comments Urine Bacteria (test code = 19055-1) MODERATE NONE [facility] PflugervilleEpithelial cells detection in urine sediment by light oepokxglok9150-40-96 01:50:00* Test Item Value Reference Range Interpretation Comments Urine Epithelial Cells (test code = 98751-8) FEW NONE [facility] PflugervilleHyaline casts detection in urine sediment by light ussefinxct2077-37-70 01:50:00* Test Item Value Reference Range Interpretation Comments Urine Hyaline Casts (test code = 90944-3) 2-5 0-1 [facility] PflugervilleHyaline casts detection in urine sediment by light ebvxomuaou5952-29-19 01:50:00* Test Item Value Reference Range Interpretation Comments Urine Hyaline Casts (test code = 14225-1) 2-5 0-1 [facility]ugervilleHyaline casts detection in urine sediment by light dmvzqzsnuf0634-50-35 01:50:00* Test Item Value Reference Range Interpretation Comments Urine Hyaline Casts (test code = 43834-2) 2-5 0-1 [facility] plasma folate measurement (mass/volume)2020-04-25 04:50:00* Test Item Value Reference Range Interpretation Comments Folate (test code = 2284-8) 9.5 >3.0 A serum folate concentration of less than 3.1 ng/mL isconsidered to represent cl inical deficiency.Performed at: [facility] [address] [id number] Director: Skip Garner MD, Phone: [phone] Scott & White Medical Center – PflugervilleAutomated reticulocyte count as percentage of total feqzjqbanyla0364-64-55 05:20:00* Test Item Value Reference Range Interpretation Comments Percent Reticulocyte Count (test code = 39772-6) 4.6 0.8-2 .2 [facility]er[facility] or plasma iron measurement (mass/volume)2020-04-24 05:20:00* Test Item Value Reference Range Interpretation Comments Iron Level (test code = 2498-4) 82 50-170 [facility] Renaissanceerum or plasma iron binding capacity measurement (mass/volume)2020-04-24 05:20:00* Test Item Value Reference Range Interpretation Comments Total Iron Binding Capacity (test code = 2500-7) 374 261-4 78 [facility] Renaissanceerum or plasma iron saturation measurement (mass fraction)2020-04-24 05:20:00* Test Item Value Reference Range Interpretation Comments Percent Iron Saturation (test code = 2502-3) 22 15-50 [facility] Renaissanceerum or plasma transferrin measurement (mass/volume)2020-04-24 05:20:00* Test Item Value Reference Range Interpretation Comments Transferrin (test code = 3034-6) 267 180-382 [facility] Renaissanceerum or plasma ferritin measurement (mass/volume)2020-04-24 05:20:00* Test Item Value Reference Range Interpretation Comments Ferritin (test code = 2276-4) 62.95 4.63-204.00 [facility]flugervilleBlood cobalamin (vitamin B12) measurement (mass/volume)2020-04-24 05:20:00* Test Item Value Reference Range Interpretation Comments Vitamin B12 Level (test code = 31255-9) > 2000 213-816 [facility] PflugervilleProthrombin time (PT) in platelet poor plasma by coagulation lbcub2239-46-55 04:45:00* Test Item Value Reference Range Interpretation Comments Prothrombin Time (test code = 5902-2) 17.6 11.9-14.5 [facility] PflugervilleINR in Platelet poor plasma by Coagulation aivod2027-92-25 04:45:00* Test Item Value Reference Range Interpretation Comments Prothromb Time International Ratio (test code = 6301-6) 1.35 Oral Anticoagulant Therapy INR Values:1. Low Intensity Therapy 1.5 - 2.02 . Moderate Intensity Therapy 2.0 - 3.03. High Intensity Therapy(1) 2.5 - 3. 54. High Intensity Therapy(2) 3.0 - 4.05. Panic Value INR > 5.0 [facility] Renaissanceer[facility] or plasma total bilirubin measurement (mass/volume)2020-04-23 04:45:00* Test Item Value Reference Range Interpretation Comments Total Bilirubin (test code = 1975-2) 1.1 0.2-1.2 [facility] PflugervilleFluoroscopic procedure less than one hour sfzfwkmz3778-11-71 04:45:00* Test Item Value Reference Range Interpretation Comments Aspartate Amino Transf (AST/SGOT) (test code = Aspartate Amino Transf (AST/SGOT)) 39 5-34 [facility] Renaissanceerum or plasma alanine aminotransferase measurement (enzymatic activity/volume)2020-04-23 04:45:00* Test Item Value Reference Range Interpretation Comments Alanine Aminotransferase (ALT/SGPT) (test code = 1742-6) 20 0-55 [facility] Renaissanceerum or plasma protein measurement (mass/volume)2020-04-23 04:45:00* Test Item Value Reference Range Interpretation Comments Total Protein (test code = 2885-2) 5.9 6.5-8.1 [facility] Renaissanceerum or plasma albumin measurement (mass/volume)2020-04-23 04:45:00* Test Item Value Reference Range Interpretation Comments Albumin (test code = 1751-7) 2.4 3.5-5.0 [facility] PflugervillePlasma globulin measurement (mass/volume) 2020-04-23 04:45:00* Test Item Value Reference Range Interpretation Comments Globulin (test code = 30836-8) 3.5 2.3-3.5 [facility] Renaissanceerum or plasma albumin/globulin mass siijk7656-28-86 04:45:00* Test Item Value Reference Range Interpretation Comments Albumin/Globulin Ratio (test code = 1759-0) 0.7 0.8-2.0 [facility] Renaissanceerum or plasma alkaline phosphatase measurement (enzymatic activity/volume)2020-04-23 04:45:00* Test Item Value Reference Range Interpretation Comments Alkaline Phosphatase (test code = 6768-6) 131 40-150 [facility] PflugervilleG I SNZDT8836-86-96 13:53:00 [facility] [address] [address] Patient Name: AMAURY CONTE MR #: [id number] : 1945 Age/Sex: 74/F Req #: [id number] Adm Physician: HUE PETERSON MD Ordered by: GUILLERMO OLSON MD Report #: [id number] Location: MED/SURG2 [facility]Bed[facility] Procedure: [id number] NM/G I BLEED Exam Date: 04/22/20 Exam Time: 0930 REPORT STATUS: Signed Tagged-RBC GI Bleed Study Clinical information: 74-year-old female with rectal bleeding. Discuss ion: The patient's own red blood cells were labeled with 27 mCi of technetium- 99m pertechnetate using the in vitro method (JamOrigin). Dynamic images of the abdomen were obtained through 60 minutes. Distribution of tracer activity appears physiologic throughout the abdomen. No abnormal accumulation of trace r is seen within the gastrointestinal lumen. Impression: No scan evid ence of active gastrointestinal bleeding at this time. Signed by: Dr. Altaf Farah M.D. on 04/22/2020 1:58 PM Dictated By: NICOLE FARAH MD [facility] Signed By: NICOLE FARAH MD on 04/22/20 1358 Transcribed By: JUAN on 04/06 1358 COPY TO: GUILLERMO OLSON MD Activated partial thromboplastin time (aPTT) in platelet poor plasma by coagulation assay 2020-04-22 04:50:00* Test Item Value Reference Range Interpretation Comments Activated Partial Thromboplast Time (test code = 84704-3) 38.3 23.8-35.5 [facility]-qVrg7831-95-27 04:50:00* Test Item Value Reference Range Interpretation Comments Ammonia (test code = 76346-1) 74 31-123 [facility] or plasma creatine kinase measurement (enzymatic activity/volume)2020-04-21 23:05:00* Test Item Value Reference Range Interpretation Comments Creatine Kinase (test code = 2157-6) 67 29-168 [facility] Renaissanceerum or plasma creatine kinase MB measurement (mass/volume)2020-04-21 23:05:00* Test Item Value Reference Range Interpretation Comments Creatine Kinase MB (test code = 74903-1) 0.80 0-5.0 [facility]ervilleTroponin I measurement by highly sensitive enzyme fnywxwuhefz1024-69-46 23:05:00* Test Item Value Reference Range Interpretation Comments Troponin I (test code = 56123-2) 0.003 0-0.300 [facility] gastrointestinal hemoglobin ezooxodlq3507-36-89 15:00:00* Test Item Value Reference Range Interpretation Comments Stool Occult Blood (test code = 2335-8) POSITIVE NEGATIVE [facility] gastrointestinal hemoglobin zecmanglf3712-75-32 15:00:00* Test Item Value Reference Range Interpretation Comments Stool Occult Blood (test code = 2335-8) POSIT[facility] NEGATIVE [facility] hepatitis A virus IgM antibody detection by fagylcavcjr6178-95-11 09:30:00* Test Item Value Reference Range Interpretation Comments Hepatitis A IgM Antibody (test code = 40873-1) Negative Negativ e [facility] or plasma hepatitis B virus surface antigen detection by ojvkfzdfsjz1948-78-36 09:30:00* Test Item Value Reference Range Interpretation Comments Hepatitis B Surface Antigen (test code = 5196-1) Negative Negat raudel [facility] or plasma hepatitis B virus core IgM antibody detection by nrvzjpeagpp1750-01-55 09:30:00* Test Item Value Reference Range Interpretation Comments Hepatitis B Core IgM Antibody (test code = 34812-3) Negative Ne gative [facility] C virus antibody nsxrmgouk3883-13-25 09:30:00* Test Item Value Reference Range Interpretation Comments Hepatitis C Antibody (test code = 08190-3) 0.1 0.0-0.9 Negative: < 0.8 Indeterminate: 0.8 - 0.9 Positive: > 0.9 The CDC recommends that a positive HCV antibody result be followed up with a HCV Nucleic Acid Amplification test (869620).Performed at: [facility] [id number] [place], [place] [id number] Director: Skip Garner MD, Phone: [phone] Hospital at Renaissanceerum or plasma hepatitis A virus IgM antibody detection by gdxqjzxdpkr9793-68-11 09:30:00* Test Item Value Reference Range Interpretation Comments Hepatitis A IgM Antibody (test code = 73899-3) Negative Negativ e [facility] or plasma hepatitis B virus surface antigen detection by csjfehuapkn9237-95-34 09:30:00* Test Item Value Reference Range Interpretation Comments Hepatitis B Surface Antigen (test code = 5196-1) Negative Negat raudel [facility] or plasma hepatitis B virus core IgM antibody detection by andgbmfflzq8961-45-96 09:30:00* Test Item Value Reference Range Interpretation Comments Hepatitis B Core IgM Antibody (test code = 86899-1) Negative Ne [facility] virus antibody yoixgxlxl1454-36-95 09:30:00* Test Item Value Reference Range Interpretation Comments Hepatitis C Antibody (test code = 85308-5) 0.1 0.0-0.9 Negative: < 0.8 Indeterminate: 0.8 - 0.9 Positive: > 0.9 The CDC recommends that a positive HCV antibody result be followed up with a HCV Nucleic Acid Amplification test (394127).Performed at: [facility] [id number] [place], [place] [id number] Director: Skip Garner MD, Phone: [phone] Hospital at Renaissanceerum or plasma hepatitis A virus IgM antibody detection by uyyqyucrrgz4728-76-82 09:30:00* Test Item Value Reference Range Interpretation Comments Hepatitis A IgM Antibody (test code = 26232-4) Negative Negativ [facility] hepatitis B virus surface antigen detection by urasaojsjvi3787-30-24 09:30:00* Test Item Value Reference Range Interpretation Comments Hepatitis B Surface Antigen (test code = 5196-1) Negative Negat raudel [facility] or plasma hepatitis B virus core IgM antibody detection by bnyqqixmzgh9767-19-12 09:30:00* Test Item Value Reference Range Interpretation Comments Hepatitis B Core IgM Antibody (test code = 47844-3) Negative Ne [facility] C virus antibody evvshsbbu5013-50-25 09:30:00* Test Item Value Reference Range Interpretation Comments Hepatitis C Antibody (test code = 31537-2) 0.1 0.0-0.9 Negative: < 0.8 Indeterminate: 0.8 - 0.9 Positive: > 0.9 The CDC recommends that a positive HCV antibody result be followed up with a HCV Nucleic Acid Amplification test (673745).Performed at: [facility] [id number] [place], [place] [id number] Director: Skip Garner MD, Phone: [phone] [facility]CT [facility] UO1941-50-00 15:26:00 [facility] [address], [place] [address] Patient Name: AMAURY CONTE MR #: [id number] : 1945 Age/Sex: 74/F Req #: [id number] Adm Physician: Ordered by: NEL BONNER MD Report #: [id number] Location: ER Room/Bed: Procedure: [id number] CT/CT CERVICAL SPINE WO Exam Date: 04/20/20 [...] COPY TO: NEL JAMES MD CT BRAIN GN6466-16-83 14:37:00 [place] [address] Patient Name: AMAURY CONTE MR #: [id number] : 1945 Age/Sex: 74/F Req #: [id number] Adm Physician: HUE PETERSON MD Ordered by: NEL BONNER MD Report #: [id number] Location: [facility]/SURG [facility]Bed: [facility] Procedure: [id number] CT/CT BRAIN WO Exam Date: 04/20/20 Exam [...] BONNER MD CHEST SINGLE (PORTABLE) 2020-04-20 14:08:00 [place] [address] Patient Name: AMAURY CONTE MR #: [id number] : 1945 Age/Sex: 74/F Req #: [id number] Adm Physician: Ordered by: NEL BONNER MD Report #: [id number] Location: ER Room/Bed: Procedure: [id number] DX/CHEST SINGL E (PORTABLE) Exam Date: 04/20/20 Exam Time: 1350 REPORT STATUS: Signed EXAMINATION: CHEST SINGLE (PORTABLE) INDICATION: SOB, AMS [id number] 1350 COMPARISON: CT chest 04/08/2020 FINDINGS: AP [...] MD Fluoroscopic procedure less than one hour bngfmhrs4927-36-62 13:00:00* Test Item Value Reference Range Interpretation Comments Lactic Acid Level (test code = Lactic Acid Level) 1.7 0.5- 2.0 [facility] magnesium measurement (mass/volume)2020-04-20 13:00:00* Test Item Value Reference Range Interpretation Comments Magnesium Level (test code = 14067-2) 2.1 1.3-2.1 [facility] plasma triglyceride measurement (mass/volume)2020-04-20 13:00:00* Test Item Value Reference Range Interpretation Comments Triglycerides Level (test code = 2571-8) 86 0-149 [facility] plasma cholesterol measurement (mass/volume)2020-04-20 13:00:00* Test Item Value Reference Range Interpretation Comments Cholesterol Level (test code = 2093-3) 72 0-199 Less than 200 mg/dL Low Kqcz837 - 239 mg/dL Borderline Skjs403 m g/dl and greater High Risk [facility] or plasma cholesterol in LDL measurement (mass/volume) 2020-04-20 13:00:00* Test Item Value Reference Range Interpretation Comments LDL Cholesterol (test code = 2089-1) 38 60-130 [facility] or plasma cholesterol in HDL measurement (mass/volume)2020-04-20 13:00:00* Test Item Value Reference Range Interpretation Comments HDL Cholesterol (test code = 2085-9) 17 40-60 [facility] plasma total cholesterol/cholesterol in HDL mass rvdlx8642-35-80 13:00:00* Test Item Value Reference Range Interpretation Comments Cholesterol/HDL Ratio (test code = 9830-1) 4.2 3.0-3.6 [facility]ervilleBNP Pta-zJxu8539-58-04 13:00:00* Test Item Value Reference Range Interpretation Comments B-Type Natriuretic Peptide (test code = 00196-3) 205.9 0-100 [facility]ugervilleFluoroscopic procedure less than one hour fnlmlyen5686-04-02 13:00:00* Test Item Value Reference Range Interpretation [...] under 564(g) of the ACT.Testing performed by [place] [id number] PflugervilleBlood yqpohwm7312-89-48 13:00:00* Test Item Value Reference Range Interpretation Comments Blood Culture (test code = 64516571) NO GROWTH AFTER 5 DAYS, FINAL REPORT [facility]ugervilleBacterial urine kkpruti1219-51-26 13:00:00* Test Item Value Reference Range Interpretation Comments Urine Culture (test code = 630-4) ESCHERICHIA COLI [facility] plasma triglyceride measurement (mass/volume)2020-04-20 13:00:00* Test Item Value Reference Range Interpretation Comments Triglycerides Level (test code = 2571-8) 86 0-149 [facility] or plasma cholesterol measurement (mass/volume)2020-04-20 13:00:00* Test Item Value Reference Range Interpretation Comments Cholesterol Level (test code = 2093-3) 72 0-199 Less than 200 mg/dL Low Epeg198 - 239 mg/dL Borderline Hrvp436 m g/dl and greater High Risk [facility] or plasma cholesterol in LDL measurement (mass/volume) 2020-04-20 13:00:00* Test Item Value Reference Range Interpretation Comments LDL Cholesterol (test code = 2089-1) 38 60-130 [facility] or plasma cholesterol in HDL measurement (mass/volume)2020-04-20 13:00:00* Test Item Value Reference Range Interpretation Comments HDL Cholesterol (test code = 2085-9) 17 40-60 [facility] or plasma total cholesterol/cholesterol in HDL mass tnlpw9873-39-16 13:00:00* Test Item Value Reference Range Interpretation Comments Cholesterol/HDL Ratio (test code = 9830-1) 4.2 3.0-3.6 [facility]ervilleBacterial urine gclhtue2636-31-25 13:00:00* Test Item Value Reference Range Interpretation Comments Urine Culture (test code = 630-4) ESCHERICHIA COLI [facility]ervilleBacterial urine bqkvigg2422-43-85 13:00:00* Test Item Value Reference Range Interpretation Comments Urine Culture (test code = 630-4) ESCHERICHIA COLI [facility]P LUMBAR, COMPLETE MIN [id number] 23:47:00 [facility] [address] [place] [address] Patient Name: AMARUY CONTE MR #: [id number] : 1945 Age/Sex: 74/F Req #: [id number] Adm Physician: Ordered by: SHANKAR NEWMAN DO Report #: [id number] Location: ER Room/Bed: Procedure: [id number] DX/SP LUMBA R, COMPLETE MIN 4VW Exam [...] 11:49 PM Dictated By: BRANDEN DASILVA MD [id number] Transcribed By: JUAN on 04/19/20 7804 COPY TO: SHANKAR NEWMAN DO THORACIC SP [id number] 23:47:00 [facility] [address] [place] [address] Patient Name: AMAURY CONTE MR #: [id number] : 1945 Age/Sex: 74/F Req #: [id number] Adm Physician: Ordered by: SHANKAR NEWMAN DO Report #: [id number] Location: [facility]/Bed: Procedure: [id number] DX/THORACIC SP 3V Exam Date: 04/19/20 Exam [...] (PT) in platelet poor plasma by coagulation uplnj5758-12-20 11:45:00* Test Item Value Reference Range Interpretation Comments Prothrombin Time (test code = 5902-2) 20.5 11.9-14.5 [facility]ervilleINR in Platelet poor plasma by Coagulation ufgoq2936-07-38 11:45:00* Test Item Value Reference Range Interpretation Comments Prothromb Time International Ratio (test code = 6301-6) 1.63 Oral Anticoagulant Therapy INR Values:1. Low Intensity Therapy 1.5 - 2.02 . Moderate Intensity Therapy 2.0 - 3.03. High Intensity Therapy(1) 2.5 - 3. 54. High Intensity Therapy(2) 3.0 - 4.05. Panic Value INR > 5.0 [facility]ervilleProthrombin time (PT) in platelet poor plasma by coagulation xkebn9881-01-59 11:45:00* Test Item Value Reference Range Interpretation Comments Prothrombin Time (test code = 5902-2) 20.5 11.9-14.5 [facility]ervilleINR in Platelet poor plasma by Coagulation lohkt8860-23-64 11:45:00* Test Item Value Reference Range Interpretation Comments Prothromb Time International Ratio (test code = 6301-6) 1.63 Oral Anticoagulant Therapy INR Values:1. Low Intensity Therapy 1.5 - 2.02 . Moderate Intensity Therapy 2.0 - 3.03. High Intensity Therapy(1) 2.5 - 3. 54. High Intensity Therapy(2) 3.0 - 4.05. Panic Value INR > 5.0 [facility] PflugervilleCapillary blood glucose measurement by glucometer (mass/volume)2020-04-09 07:16:00* Test Item Value Reference Range Interpretation Comments Bedside Glucose (test code = 97360-0) 99 70-120 Meter ID: [id number] Scott & White [facility] PflugervilleCapillary blood glucose measurement by glucometer (mass/volume)2020-04-09 07:16:00* Test Item Value Reference Range Interpretation Comments Bedside Glucose (test code = 75137-5) 99 70-120 Meter ID: [id number] Scott & [facility] PflugervilleBlood leukocytes automated count (number/volume)2020-04-09 05:40:00* Test Item Value Reference Range Interpretation Comments White Blood Count (test code = 6690-2) 4.39 4.8-10.8 [facility]ervilleBlood erythrocytes automated count (number/volume)2020-04-09 05:40:00* Test Item Value Reference Range Interpretation Comments Red Blood Count (test code = 789-8) 2.55 3.6-5.1 [facility] PflugervilleBlst. francis regional [facility] hemoglobin measurement (moles/volume)2020-04-09 05:40:00* Test Item Value Reference Range Interpretation Comments Hemoglobin (test code = 35732-3) 8.2 12.0-16.0 [facility]flugervilleAutomated blood hematocrit (volume fraction)2020-04-09 05:40:00* Test Item Value Reference Range Interpretation Comments Hematocrit (test code = 4544-3) 27.0 34.2-44.1 [facility]flugervilleAutomated erythrocyte mean corpuscular rjzhcl2583-52-43 05:40:00* Test Item Value Reference Range Interpretation Comments Mean Corpuscular Volume (test code = 787-2) 105.9 81-99 [facility]flugervilleAutomated erythrocyte mean corpuscular hemoglobin (mass per erythrocyte)2020-04-09 05:40:00* Test Item Value Reference Range Interpretation Comments Mean Corpuscular Hemoglobin (test code = 785-6) 32.2 28-32 [facility]flugervilleAutomated erythrocyte mean corpuscular hemoglobin concentration measurement (mass/volume)2020-04-09 05:40:00* Test Item Value Reference Range Interpretation Comments Mean Corpuscular Hemoglobin Concent (test code = 786-4) 30.4 31-35 [facility] PflugervilleRDW YaqMc-Kyw8813-33-23 05:40:00* Test Item Value Reference Range Interpretation Comments Red Cell Distribution Width (test code = 15296-5) 21.6 11.7 -14.4 [facility]flugervilleAutomated blood platelet count (count/volume)2020-04-09 05:40:00* Test Item Value Reference Range Interpretation Comments Platelet Count (test code = 777-3) 133 140-360 [facility]ugervilleAutformerly [facility], [facility] morgantoned blood segmented neutrophil count as percentage of total neunltzcwa1339-01-14 05:40:00* Test Item Value Reference Range Interpretation Comments Neutrophils (%) (Auto) (test code = 12761-5) 50.8 38.7-80.0 [facility] PflugervilleAutomated blood lymphocyte count as percentage ot total yppncenzjf7969-69-96 05:40:00* Test Item Value Reference Range Interpretation Comments Lymphocytes (%) (Auto) (test code = 736-9) 26.7 18.0-39.1 [facility] PflugervilleAutomated blood monocyte count as percentage of total bddvcztgnq0941-39-64 05:40:00* Test Item Value Reference Range Interpretation Comments Monocytes (%) (Auto) (test code = 5905-5) 15.7 4.4-11.3 [facility] PflugervilleAutomated blood eosinophil count as percentage of total xrzbtmopla7726-17-11 05:40:00* Test Item Value Reference Range Interpretation Comments Eosinophils (%) (Auto) (test code = 713-8) 5.9 0.0-6.0 [facility] PflugervilleAutomated blood basophil count as percentage of total dukdhqvezf6226-64-92 05:40:00* Test Item Value Reference Range Interpretation Comments Basophils (%) (Auto) (test code = 706-2) 0.7 0.0-1.0 [facility] PflugervilleFluoroscopic procedure less than one hour eikduxpz6981-29-60 05:40:00* Test Item Value Reference Range Interpretation Comments IM GRANULOCYTES % (test code = IM GRANULOCYTES %) 0.2 0.0- 1.0 [facility] PflugervilleAutomated blood neutrophil count 2020-04-09 05:40:00* Test Item Value Reference Range Interpretation Comments Neutrophils # (Auto) (test code = 751-8) 2.2 2.1-6.9 [facility]ervilleBlood lymphocytes count (number/volume) 2020-04-09 05:40:00* Test Item Value Reference Range Interpretation Comments Lymphocytes # (Auto) (test code = 50951-3) 1.2 1.0-3.2 [facility] PflugervilleBlst. francis regional medical center monocytes automated count (number/volume)2020-04-09 05:40:00* Test Item Value Reference Range Interpretation Comments Monocytes # (Auto) (test code = 742-7) 0.7 0.2-0.8 [facility] PflugervilleAutomated blood eosinophil count 2020-04-09 05:40:00* Test Item Value Reference Range Interpretation Comments Eosinophils # (Auto) (test code = 711-2) 0.3 0.0-0.4 [facility]flugervilleAutomated blood basophil count (count/volume)2020-04-09 05:40:00* Test Item Value Reference Range Interpretation Comments Basophils # (Auto) (test code = 704-7) 0.0 0.0-0.1 [facility] PflugervilleFluoroscopic procedure less than one hour yvfpyyqj5915-63-75 05:40:00* Test Item Value Reference Range Interpretation Comments Absolute Immature Granulocyte (auto (lyssa t code = Absolute Immature Granulocyte (auto) 0.01 0-0.1 [facility] plasma sodium measurement (moles/volume)2020-04-09 05:40:00* Test Item Value Reference Range Interpretation Comments Sodium Level (test code = 2951-2) 149 136-145 [facility] or plasma potassium measurement (moles/volume)2020-04-09 05:40:00* Test Item Value Reference Range Interpretation Comments Potassium Level (test code = 2823-3) 3.9 3.5-5.1 [facility] Renaissanceer[facility] or plasma chloride measurement (moles/volume)2020-04-09 05:40:00* Test Item Value Reference Range Interpretation Comments Chloride Level (test code = 2075-0) 121 98-107 [facility] Renaissanceerum or plasma carbon dioxide, total measurement (moles/volume)2020-04-09 05:40:00* Test Item Value Reference Range Interpretation Comments Carbon Dioxide Level (test code = 2028-9) 23 22-29 [facility] Renaissanceerum or plasma anion sxa3186-32-92 05:40:00* Test Item Value Reference Range Interpretation Comments Anion Gap (test code = 53594-9) 8.9 8-16 [facility] or plasma urea nitrogen measurement (mass/volume)2020-04-09 05:40:00* Test Item Value Reference Range Interpretation Comments Blood Urea Nitrogen (test code = 3094-0) 32 7-26 [facility]er[facility] or plasma creatinine measurement (mass/volume)2020-04-09 05:40:00* Test Item Value Reference Range Interpretation Comments Creatinine (test code = 2160-0) 1.23 0.57-1.11 [facility] Renaissanceerum or plasma urea nitrogen/creatinine mass fkmzq9125-36-24 05:40:00* Test Item Value Reference Range Interpretation Comments BUN/Creatinine Ratio (test code = 3097-3) 26 6-25 [facility] PflugervilleEstimated glomerular filtration rate (GFR) sxizhvnieaphx5293-56-31 05:40:00* Test Item Value Reference Range Interpretation Comments Estimat Glomerular Filtration Rate (test code = 713565175) 43 >60 Ranges were taken from the National Kidney Disease Education Program and the [facility] [employer] literature.Reference ranges:60 or greater: Yqykok86-84 ( for 3 consecutive months): Chronic kidney disease 15 or less: Kidney failureBaylor Scott & White Medical Center – PflugervilleGlucose jxhfrhhsmyc1542-65-48 05:40:00* Test Item Value Reference Range Interpretation Comments Glucose Level (test code = MXK5268) 92 74-118 [facility] or plasma calcium measurement (mass/volume)2020-04-09 05:40:00* Test Item Value Reference Range Interpretation Comments Calcium Level (test code = 20778-0) 8.3 8.4-10.2 [facility] Renaissanceerum or plasma magnesium measurement (mass/volume)2020-04-09 05:40:00* Test Item Value Reference Range Interpretation Comments Magnesium Level (test code = 85369-1) 2.0 1.3-2.1 [facility] Renaissanceerum or plasma total bilirubin measurement (mass/volume)2020-04-09 05:40:00* Test Item Value Reference Range Interpretation Comments Total Bilirubin (test code = 1975-2) 1.5 0.2-1.2 [facility] PflugervilleFluoroscopic procedure less than one hour tgxbqikn5820-55-05 05:40:00* Test Item Value Reference Range Interpretation Comments Aspartate Amino Transf (AST/SGOT) (test code = Aspartate Amino Transf (AST/SGOT)) 63 5-34 [facility] Renaissanceerum or plasma alanine aminotransferase measurement (enzymatic activity/volume)2020-04-09 05:40:00* Test Item Value Reference Range Interpretation Comments Alanine Aminotransferase (ALT/SGPT) (test code = 1742-6) 27 0-55 [facility] PflugervilleAmmonia Bqv-fRcs6078-88-23 05:40:00* Test Item Value Reference Range Interpretation Comments Ammonia (test code = 72017-5) 84 31-123 [facility] Renaissanceer[facility] or plasma protein measurement (mass/volume)2020-04-09 05:40:00* Test Item Value Reference Range Interpretation Comments Total Protein (test code = 2885-2) 5.5 6.5-8.1 [facility] Renaissanceerum or plasma albumin measurement (mass/volume)2020-04-09 05:40:00* Test Item Value Reference Range Interpretation Comments Albumin (test code = 1751-7) 2.4 3.5-5.0 [facility] PflugervillePlasma globulin measurement (mass/volume) 2020-04-09 05:40:00* Test Item Value Reference Range Interpretation Comments Globulin (test code = 41252-7) 3.1 2.3-3.5 [facility] Renaissanceerum or plasma albumin/globulin mass gkvdd0992-78-20 05:40:00* Test Item Value Reference Range Interpretation Comments Albumin/Globulin Ratio (test code = 1759-0) 0.8 0.8-2.0 [facility] Renaissanceerum or plasma alkaline phosphatase measurement (enzymatic activity/volume)2020-04-09 05:40:00* Test Item Value Reference Range Interpretation Comments Alkaline Phosphatase (test code = 6768-6) 134 40-150 [facility] PflugervilleBlood leukocytes automated count (number/volume)2020-04-09 05:40:00* Test Item Value Reference Range Interpretation Comments White Blood Count (test code = 6690-2) 4.39 4.8-10.8 [facility] PflugervilleBlood erythrocytes automated count (number/volume)2020-04-09 05:40:00* Test Item Value Reference Range Interpretation Comments Red Blood Count (test code = 789-8) 2.55 3.6-5.1 [facility] PflugervilleBlood hemoglobin measurement (moles/volume)2020-04-09 05:40:00* Test Item Value Reference Range Interpretation Comments Hemoglobin (test code = 29048-8) 8.2 12.0-16.0 [facility] PflugervilleAutomated blood hematocrit (volume fraction)2020-04-09 05:40:00* Test Item Value Reference Range Interpretation Comments Hematocrit (test code = 4544-3) 27.0 34.2-44.1 [facility] PflugervilleAutomated erythrocyte mean corpuscular onbyid0326-92-73 05:40:00* Test Item Value Reference Range Interpretation Comments Mean Corpuscular Volume (test code = 787-2) 105.9 81-99 [facility] PflugervilleAutomated erythrocyte mean corpuscular hemoglobin (mass per erythrocyte)2020-04-09 05:40:00* Test Item Value Reference Range Interpretation Comments Mean Corpuscular Hemoglobin (test code = 785-6) 32.2 28-32 [facility] PflugervilleAutomated erythrocyte mean corpuscular hemoglobin concentration measurement (mass/volume)2020-04-09 05:40:00* Test Item Value Reference Range Interpretation Comments Mean Corpuscular Hemoglobin Concent (test code = 786-4) 30.4 31-35 [facility] PflugervilleRDW LocAq-Bey0477-49-23 05:40:00* Test Item Value Reference Range Interpretation Comments Red Cell Distribution Width (test code = 36512-2) 21.6 11.7 -14.4 [facility]ugervilleAutomated blood platelet count (count/volume)2020-04-09 05:40:00* Test Item Value Reference Range Interpretation Comments Platelet Count (test code = 777-3) 133 140-360 [facility]ervilleAutformerly [facility], [facility] morgantoned blood segmented neutrophil count as percentage of total fricqjrbzg8539-64-87 05:40:00* Test Item Value Reference Range Interpretation Comments Neutrophils (%) (Auto) (test code = 05769-7) 50.8 38.7-80.0 [facility]ugervilleAutomated blood lymphocyte count as percentage ot total omawsxewsb7080-00-57 05:40:00* Test Item Value Reference Range Interpretation Comments Lymphocytes (%) (Auto) (test code = 736-9) 26.7 18.0-39.1 [facility]ervilleAutomated blood monocyte count as percentage of total hzmajkwkah3893-52-33 05:40:00* Test Item Value Reference Range Interpretation Comments Monocytes (%) (Auto) (test code = 5905-5) 15.7 4.4-11.3 [facility]ervilleAutomated blood eosinophil count as percentage of total bbhnprpiie4760-94-04 05:40:00* Test Item Value Reference Range Interpretation Comments Eosinophils (%) (Auto) (test code = 713-8) 5.9 0.0-6.0 [facility]ervilleAutomated blood basophil count as percentage of total xfbxzhyhrr2322-98-86 05:40:00* Test Item Value Reference Range Interpretation Comments Basophils (%) (Auto) (test code = 706-2) 0.7 0.0-1.0 [facility]flugervilleFluoroscopic procedure less than one hour lyqjcful0978-50-74 05:40:00* Test Item Value Reference Range Interpretation Comments IM GRANULOCYTES % (test code = IM GRANULOCYTES %) 0.2 0.0- 1.0 [facility]ervilleAutomated blood neutrophil count 2020-04-09 05:40:00* Test Item Value Reference Range Interpretation Comments Neutrophils # (Auto) (test code = 751-8) 2.2 2.1-6.9 [facility]ervilleBlood lymphocytes count (number/volume) 2020-04-09 05:40:00* Test Item Value Reference Range Interpretation Comments Lymphocytes # (Auto) (test code = 34633-2) 1.2 1.0-3.2 [facility]ervilleBlood monocytes automated count (number/volume)2020-04-09 05:40:00* Test Item Value Reference Range Interpretation Comments Monocytes # (Auto) (test code = 742-7) 0.7 0.2-0.8 [facility]ervilleAutomated blood eosinophil count 2020-04-09 05:40:00* Test Item Value Reference Range Interpretation Comments Eosinophils # (Auto) (test code = 711-2) 0.3 0.0-0.4 [facility]ervilleAutomated blood basophil count (count/volume)2020-04-09 05:40:00* Test Item Value Reference Range Interpretation Comments Basophils # (Auto) (test code = 704-7) 0.0 0.0-0.1 [facility]ervilleFluoroscopic procedure less than one hour amxxmhep3169-58-66 05:40:00* Test Item Value Reference Range Interpretation Comments Absolute Immature Granulocyte (auto (lyssa t code = Absolute Immature Granulocyte (auto) 0.01 0-0.1 [facility] plasma sodium measurement (moles/volume)2020-04-09 05:40:00* Test Item Value Reference Range Interpretation Comments Sodium Level (test code = 2951-2) 149 136-145 [facility]er[facility] plasma potassium measurement (moles/volume)2020-04-09 05:40:00* Test Item Value Reference Range Interpretation Comments Potassium Level (test code = 2823-3) 3.9 3.5-5.1 [facility] Renaissanceer[facility] or plasma chloride measurement (moles/volume)2020-04-09 05:40:00* Test Item Value Reference Range Interpretation Comments Chloride Level (test code = 2075-0) 121 98-107 [facility] Renaissanceerum or plasma carbon dioxide, total measurement (moles/volume)2020-04-09 05:40:00* Test Item Value Reference Range Interpretation Comments Carbon Dioxide Level (test code = 2028-9) 23 22-29 [facility] Renaissanceerum or plasma anion vem4455-51-23 05:40:00* Test Item Value Reference Range Interpretation Comments Anion Gap (test code = 00302-8) 8.9 8-16 [facility] Renaissanceerum [facility] plasma urea nitrogen measurement (mass/volume)2020-04-09 05:40:00* Test Item Value Reference Range Interpretation Comments Blood Urea Nitrogen (test code = 3094-0) 32 7-26 [facility] Renaissanceerum or plasma creatinine measurement (mass/volume)2020-04-09 05:40:00* Test Item Value Reference Range Interpretation Comments Creatinine (test code = 2160-0) 1.23 0.57-1.11 [facility] Renaissanceerum or plasma urea nitrogen/creatinine mass dqqcm8651-38-27 05:40:00* Test Item Value Reference Range Interpretation Comments BUN/Creatinine Ratio (test code = 3097-3) 26 6-25 [facility]flugervilleEstimated glomerular filtration rate (GFR) ilpmxttokaery9146-71-09 05:40:00* Test Item Value Reference Range Interpretation Comments Estimat Glomerular Filtration Rate (test code = 133252159) 43 >60 Ranges were taken from the National Kidney Disease Education Program and the [facility] literature.Reference ranges:60 or greater: Jqwltq89-50 ( for 3 consecutive months): Chronic kidney disease 15 or less: Kidney failureBaylor Scott & White Medical Center – PflugervilleGlucose fjdnnszmcmy7893-29-54 05:40:00* Test Item Value Reference Range Interpretation Comments Glucose Level (test code = FCX1673) 92 74-118 [facility] plasma calcium measurement (mass/volume)2020-04-09 05:40:00* Test Item Value Reference Range Interpretation Comments Calcium Level (test code = 44827-8) 8.3 8.4-10.2 [facility] Renaissanceer[facility] plasma magnesium measurement (mass/volume)2020-04-09 05:40:00* Test Item Value Reference Range Interpretation Comments Magnesium Level (test code = 69316-8) 2.0 1.3-2.1 [facility] Renaissanceerum or plasma total bilirubin measurement (mass/volume)2020-04-09 05:40:00* Test Item Value Reference Range Interpretation Comments Total Bilirubin (test code = 1975-2) 1.5 0.2-1.2 [facility]ervilleFluoroscopic procedure less than one hour rgmsfzjy9834-63-47 05:40:00* Test Item Value Reference Range Interpretation Comments Aspartate Amino Transf (AST/SGOT) (test code = Aspartate Amino Transf (AST/SGOT)) 63 5-34 [facility] Renaissanceerum or plasma alanine aminotransferase measurement (enzymatic activity/volume)2020-04-09 05:40:00* Test Item Value Reference Range Interpretation Comments Alanine Aminotransferase (ALT/SGPT) (test code = 1742-6) 27 0-55 [facility] PflugervilleAmmonia Uwq-yLpc1064-14-23 05:40:00* Test Item Value Reference Range Interpretation Comments Ammonia (test code = 66870-3) 84 31-123 [facility] Renaissanceerum or plasma protein measurement (mass/volume)2020-04-09 05:40:00* Test Item Value Reference Range Interpretation Comments Total Protein (test code = 2885-2) 5.5 6.5-8.1 [facility] Renaissanceerum or plasma albumin measurement (mass/volume)2020-04-09 05:40:00* Test Item Value Reference Range Interpretation Comments Albumin (test code = 1751-7) 2.4 3.5-5.0 [facility]ervillePlasma globulin measurement (mass/volume) 2020-04-09 05:40:00* Test Item Value Reference Range Interpretation Comments Globulin (test code = 40195-1) 3.1 2.3-3.5 [facility] Renaissanceerum or plasma albumin/globulin mass miwor6169-70-38 05:40:00* Test Item Value Reference Range Interpretation Comments Albumin/Globulin Ratio (test code = 1759-0) 0.8 0.8-2.0 [facility] Renaissanceerum or plasma alkaline phosphatase measurement (enzymatic activity/volume)2020-04-09 05:40:00* Test Item Value Reference Range Interpretation Comments Alkaline Phosphatase (test code = 6768-6) 134 40-150 [facility] PflugervilleCTA ISZDH1230-51-39 22:17:00 [facility] [address] [place] [address] Patient Name: AMAURY CONTE MR #: [id number] : 1945 Age/Sex: 74/F Req #: [id number] Adm Physician: HUE PETERSON MD Ordered by: Lawanda Cook NP Report #: [id number] Location: [facility] Room/Bed: 289-1 Procedure: [id number] CT/CTA BRAIN Exam Date: 04/08/20 Exam Time: [...] as a percentag e relative to the [place] artery distal to the stenosis (NASCET). 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 Streak [...] isconsidered to represent cl inical deficiency.Performed at: [facility] [id number] Director: Skip Garner MD, Phone: [phone] Hospital at Renaissanceerum or plasma folate measurement (mass/volume) 2020-04-08 17:10:00* Test Item Value Reference Range Interpretation Comments Folate (test code = 2284-8) 18.4 >3.0 A serum folate concentration of less than 3.1 ng/mL isconsidered to represent cl inical deficiency.Performed at: [facility] [id number] Director: Skip Garner MD, Phone: [phone] Hermann Memorial City Medical Centerol gastrointestinal hemoglobin wxhoyiqja9105-28-00 16:40:00* Test Item Value Reference Range Interpretation Comments Stool Occult Blood (test code = 2335-8) POSITIVE NEGATIVE [facility] gastrointestinal hemoglobin ukqjtsrnf4609-77-19 16:40:00* Test Item Value Reference Range Interpretation Comments Stool Occult Blood (test code = 2335-8) POSITIVE NEGATIVE [facility] PflugervilleUS LHNKH3606-19-76 10:49:00 [place] [address] Patient Name: AMAURY CONTE MR #: [id number] : 1945 Age/Sex: 74/F Req #: [id number] Adm Physician: HUE PETERSON MD Ordered by: Lawanda Cook NP Report #: [id number] Location: [facility] Room/Bed: [facility] Procedure: [id number] US/US LIVER Exam Date: 04/08/20 Exam Time: [...] COPY TO: LAWANDA COOK NP CT CHEST OK9453-86-07 09:45:00 [place] [address] Patient Name: AMAURY CONTE MR #: [id number] : 1945 Age/Sex: 74/F Req #: [id number] Adm Physician: HUE PETERSON MD Ordered by: Lawanda Cook NP Re port #: [id number] Location: [facility] Room/ Bed: [facility] Procedure: [id number] CT/CT CHEST W O Exam Date: 04/08/20 Exam Time: 0420 REPORT STATUS: Signed CT of the chest. Co mparison: None Clinical History: Altered mental status Technique: Hel ical CT scan of the chest was performed from just above the thoracic inlet thr ough the adrenal glands. Intravenous contrast administration was not utilized . Coronal and sagittal reconstructions were generated from the raw data. [facility] tiple images were submitted for interpretation. This [...] Interpretation Comments Platelet Estimate (test code = 65249-9) ADEQUATE [facility] PflugervillePlatelet cyfjhyhuip0736-23-76 05:20:00* Test Item Value Reference Range Interpretation Comments Platelet Morphology Comment (test code = 19171-9) NORMAL [facility] PflugervilleBlood polychromasia detection by light lkjbyaqyxz6365-29-41 05:20:00* Test Item Value Reference Range Interpretation Comments Polychromasia (test code = 24926-2) FEW [facility] PflugervilleBlood anisocytosis detection by light yfgnzekiam6583-73-45 05:20:00* Test Item Value Reference Range Interpretation Comments Anisocytosis (test code = 702-1) MODERATE [facility]flugervilleBlood macrocytes detection by light ieuwbhrout5370-96-48 05:20:00* Test Item Value Reference Range Interpretation Comments Macrocytosis (test code = 738-5) MODERATE [facility] PflugervilleBlood ovalocytes detection by light pvddheopet9812-54-92 05:20:00* Test Item Value Reference Range Interpretation Comments Ovalocytes (test code = 774-0) FEW [facility] PflugervilleRB ubmhretmqv2835-86-36 05:20:00* Test Item Value Reference Range Interpretation Comments Red Cell Morphology Comment (test code = 6742-1) ABNORMAL [facility] PflugervilleAutomated reticulocyte count as percentage of total zzqrupkmuqca4134-30-43 05:20:00* Test Item Value Reference Range Interpretation Comments Percent Reticulocyte Count (test code = 44872-2) 5.7 0.8-2 .2 [facility] PflugervilleFluoroscopic procedure less than one hour ttxzbupg6087-57-09 05:20:00* Test Item Value Reference Range Interpretation Comments Hemoglobin A1c Percent (test code = Hemoglobin A1c Percent) 5.2 4.0-7.0 [facility] plasma iron measurement (mass/volume)2020-04-08 05:20:00* Test Item Value Reference Range Interpretation Comments Iron Level (test code = 2498-4) 62 50-170 [facility] Renaissanceerum or plasma iron binding capacity measurement (mass/volume)2020-04-08 05:20:00* Test Item Value Reference Range Interpretation Comments Total Iron Binding Capacity (test code = 2500-7) 413 261-4 78 [facility] Renaissanceerum or plasma iron saturation measurement (mass fraction)2020-04-08 05:20:00* Test Item Value Reference Range Interpretation Comments Percent Iron Saturation (test code = 2502-3) 15 15-50 [facility] Renaissanceerum or plasma transferrin measurement (mass/volume)2020-04-08 05:20:00* Test Item Value Reference Range Interpretation Comments Transferrin (test code = 3034-6) 295 180-382 [facility] Renaissanceerum or plasma triglyceride measurement (mass/volume)2020-04-08 05:20:00* Test Item Value Reference Range Interpretation Comments Triglycerides Level (test code = 2571-8) 76 0-149 [facility] Renaissanceerum or plasma cholesterol measurement (mass/volume)2020-04-08 05:20:00* Test Item Value Reference Range Interpretation Comments Cholesterol Level (test code = 2093-3) 80 0-199 Less than 200 mg/dL Low Uxiz173 - 239 mg/dL Borderline Mgrf175 m g/dl and greater High Risk [facility] Renaissanceerum or plasma cholesterol in LDL measurement (mass/volume) 2020-04-08 05:20:00* Test Item Value Reference Range Interpretation Comments LDL Cholesterol (test code = 2089-1) 48 60-130 [facility] Renaissanceerum or plasma cholesterol in HDL measurement (mass/volume)2020-04-08 05:20:00* Test Item Value Reference Range Interpretation Comments HDL Cholesterol (test code = 2085-9) 17 40-60 [facility] Renaissanceerum or plasma total cholesterol/cholesterol in HDL mass cseox0630-92-76 05:20:00* Test Item Value Reference Range Interpretation Comments Cholesterol/HDL Ratio (test code = 9830-1) 4.7 3.0-3.6 [facility] Renaissanceerum or plasma creatine kinase measurement (enzymatic activity/volume)2020-04-08 05:20:00* Test Item Value Reference Range Interpretation Comments Creatine Kinase (test code = 2157-6) 56 29-168 [facility] Renaissanceerum or plasma creatine kinase MB measurement (mass/volume)2020-04-08 05:20:00* Test Item Value Reference Range Interpretation Comments Creatine Kinase MB (test code = 03492-9) 1.30 0-5.0 [facility] PflugervilleTroponin I measurement by highly sensitive enzyme bzdlpdfhrzc8389-36-87 05:20:00* Test Item Value Reference Range Interpretation Comments Troponin I (test code = 28655-1) 0.017 0-0.300 [facility]flugervilleBlood cobalamin (vitamin B12) measurement (mass/volume)2020-04-08 05:20:00* Test Item Value Reference Range Interpretation Comments Vitamin B12 Level (test code = 66369-8) > 2000 213-816 [facility]flugervilleBlood platelets count by estimate (number/volume)2020-04-08 05:20:00* Test Item Value Reference Range Interpretation Comments Platelet Estimate (test code = 42617-2) ADEQUATE [facility] PflugervillePlatelet kccxgpoawu6207-07-23 05:20:00* Test Item Value Reference Range Interpretation Comments Platelet Morphology Comment (test code = 37949-0) NORMAL [facility] PflugervilleBlst. francis [facility] polychromasia detection by light gobxenyami2181-12-50 05:20:00* Test Item Value Reference Range Interpretation Comments Polychromasia (test code = 48530-0) FEW [facility] PflugervilleBlood anisocytosis detection by light icekpsvpsb7157-42-86 05:20:00* Test Item Value Reference Range Interpretation Comments Anisocytosis (test code = 702-1) MODERATE [facility] PflugervilleBlood macrocytes detection by light cncfwtzdgg0432-40-55 05:20:00* Test Item Value Reference Range Interpretation Comments Macrocytosis (test code = 738-5) MODERATE [facility] PflugervilleBlood ovalocytes detection by light dlhgwvxddm3951-75-03 05:20:00* Test Item Value Reference Range Interpretation Comments Ovalocytes (test code = 774-0) FEW [facility] PflugervilleRBC dkbbvapshx1297-04-63 05:20:00* Test Item Value Reference Range Interpretation Comments Red Cell Morphology Comment (test code = 6742-1) ABNORMAL [facility] PflugervilleAutomated reticulocyte count as percentage of total beqxckdubfse4641-86-33 05:20:00* Test Item Value Reference Range Interpretation Comments Percent Reticulocyte Count (test code = 73879-4) 5.7 0.8-2 .2 [facility] PflugervilleFluoroscopic procedure less than one hour bmvhkdzc4028-73-89 05:20:00* Test Item Value Reference Range Interpretation Comments Hemoglobin A1c Percent (test code = Hemoglobin A1c Percent) 5.2 4.0-7.0 [facility] Renaissanceerum or plasma iron measurement (mass/volume)2020-04-08 05:20:00* Test Item Value Reference Range Interpretation Comments Iron Level (test code = 2498-4) 62 50-170 [facility] Renaissanceerum or plasma iron binding capacity measurement (mass/volume)2020-04-08 05:20:00* Test Item Value Reference Range Interpretation Comments Total Iron Binding Capacity (test code = 2500-7) 413 261-4 78 [facility] Renaissanceerum or plasma iron saturation measurement (mass fraction)2020-04-08 05:20:00* Test Item Value Reference Range Interpretation Comments Percent Iron Saturation (test code = 2502-3) 15 15-50 [facility] Renaissanceerum or plasma transferrin measurement (mass/volume)2020-04-08 05:20:00* Test Item Value Reference Range Interpretation Comments Transferrin (test code = 3034-6) 295 180-382 [facility] Renaissanceerum or plasma triglyceride measurement (mass/volume)2020-04-08 05:20:00* Test Item Value Reference Range Interpretation Comments Triglycerides Level (test code = 2571-8) 76 0-149 [facility] Renaissanceerum or plasma cholesterol measurement (mass/volume)2020-04-08 05:20:00* Test Item Value Reference Range Interpretation Comments Cholesterol Level (test code = 2093-3) 80 0-199 Less than 200 mg/dL Low Tdea040 - 239 mg/dL Borderline Zqic831 m g/dl and greater High Risk [facility] Renaissanceerum or plasma cholesterol in LDL measurement (mass/volume) 2020-04-08 05:20:00* Test Item Value Reference Range Interpretation Comments LDL Cholesterol (test code = 2089-1) 48 60-130 [facility] Renaissanceerum or plasma cholesterol in HDL measurement (mass/volume)2020-04-08 05:20:00* Test Item Value Reference Range Interpretation Comments HDL Cholesterol (test code = 2085-9) 17 40-60 [facility] Renaissanceerum or plasma total cholesterol/cholesterol in HDL mass lalxr3158-57-85 05:20:00* Test Item Value Reference Range Interpretation Comments Cholesterol/HDL Ratio (test code = 9830-1) 4.7 3.0-3.6 [facility] Renaissanceerum or plasma creatine kinase measurement (enzymatic activity/volume)2020-04-08 05:20:00* Test Item Value Reference Range Interpretation Comments Creatine Kinase (test code = 2157-6) 56 29-168 [facility] Renaissanceerum or plasma creatine kinase MB measurement (mass/volume)2020-04-08 05:20:00* Test Item Value Reference Range Interpretation Comments Creatine Kinase MB (test code = 49049-7) 1.30 0-5.0 [facility] PflugervilleTroponin I measurement by highly sensitive enzyme bpvsjgsyqkz9651-06-00 05:20:00* Test Item Value Reference Range Interpretation Comments Troponin I (test code = 45255-8) 0.017 0-0.300 [facility] PflugervilleBlst. [facility] center cobalamin (vitamin B12) measurement (mass/volume)2020-04-08 05:20:00* Test Item Value Reference Range Interpretation Comments Vitamin B12 Level (test code = 10870-8) > 2000 213-816 [facility] PflugervilleBlst. [facility] center ovalocytes detection by light cojupgiqso7255-26-30 05:20:00* Test Item Value Reference Range Interpretation Comments Ovalocytes (test code = 774-0) FEW [facility] PflugervilleFluoroscopic procedure less than one hour wfhznkzh1607-65-34 05:20:00* Test Item Value Reference Range Interpretation Comments Hemoglobin A1c Percent (test code = Hemoglobin A1c Percent) 5.2 4.0-7.0 [facility] ovalocytes detection by light gxwvvfwuyv0353-81-38 05:20:00* Test Item Value Reference Range Interpretation Comments Ovalocytes (test code = 774-0) FEW [facility]flugervilleFluoroscopic procedure less than one hour ujyebvsa8458-89-30 05:20:00* Test Item Value Reference Range Interpretation Comments Hemoglobin A1c Percent (test code = Hemoglobin A1c Percent) 5.2 4.0-7.0 [facility] PflugervilleFluoroscopic procedure less than one hour kpcudiri3889-20-93 05:20:00* Test Item Value Reference Range Interpretation Comments Hemoglobin A1c Percent (test code = Hemoglobin A1c Percent) 5.2 4.0-7.0 [facility] PflugervilleFluoroscopic procedure less than one hour dhbhwgtv2328-33-77 14:27:00* Test Item Value Reference Range Interpretation [...] complexity tests.Testing performed by [facility] [address] [id number] Director: Harmeet Chu M.D.[facility] # [id number] [facility] SINGLE (PORTABLE)2020-04-07 12:54:00 [facility] [address] [place] [address] Patient Name: AMAURY CONTE MR #: [id number] : 1945 Age/Sex: 74/F Req #: [id number] Adm Physician: Ordered by: NEL BONNER MD Report #: [id number] Location: ER Room/Bed: Procedure: [id number] DX/CHEST SINGL E (PORTABLE) Exam Date: 04/07/20 Exam Time: 1230 REPORT STATUS: Signed EXAMINATION: CHEST SINGLE (PORTABLE) COMPARISON: Chest x-ray 11/10/2018 INDICAT ION: AMS, HYPOTENSION [id number] DISCUSSION: Frontal view of the chest [...] COPY TO: NEL BONNER MD Urine color gfjldenugznrm8786-00-70 12:25:00* Test Item Value Reference Range Interpretation Comments Urine Color (test code = 5778-6) YELLOW YELLOW [facility] PflugervilleUrine stkoudh6444-10-05 12:25:00* Test Item Value Reference Range Interpretation Comments Urine Clarity (test code = 39949-2) CLEAR CLEAR [facility] Renaissancepecific gravity of Urine by Test strip 2020-04-07 12:25:00* Test Item Value Reference Range Interpretation Comments Urine Specific [place]ark (test code = 5811-5) 1.025 1.010-1.02 5 [facility] PflugervilleUrine pH measurement by automated test xymcw2952-62-76 12:25:00* Test Item Value Reference Range Interpretation Comments Urine pH (test code = 24904-5) 6.5 5-7 [facility] [facility]ervilleUrine leukocyte esterase detection by jhishvju7940-25-48 12:25:00* Test Item Value Reference Range Interpretation Comments Urine Leukocyte Esterase (test code = 5799-2) NEGATIVE NEGATIVE [facility] nitrite mycwnnpts3248-73-91 12:25:00* Test Item Value Reference Range Interpretation Comments Urine Nitrite (test code = 17157-9) NEGATIVE NEGATIVE [facility] protein measurement by test strip (mass/volume)2020-04-07 12:25:00* Test Item Value Reference Range Interpretation Comments Urine Protein (test code = 5804-0) NEGATIVE NEGATIVE [facility] glucose ihgpnhyhy9541-60-73 12:25:00* Test Item Value Reference Range Interpretation Comments Urine Glucose (UA) (test code = 2349-9) NEGATIVE NEGATIVE [facility]Urine ketones detection by automated test [id number] 12:25:00* Test Item Value Reference Range Interpretation Comments Urine Ketones (test code = 21894-0) NEGATIVE NEGATIVE [facility]Urine opiates screening [id number] 12:25:00* Test Item Value Reference Range Interpretation Comments Urine Opiates Screen (test code = 52249-5) NEGATIVE NEGATIVE ALL TESTS PERFORMED MANUALLY ON [place] TOX/SEE TESTBaylor [facility]ugervilleBarbiturates screen, [id number] 12:25:00* Test Item Value Reference Range Interpretation Comments Urine Barbiturates Screen (test code = 277075633) NEGATIVE NEGA TIVE [facility]Urine phencyclidine detection by screening [id number] 12:25:00* Test Item Value Reference Range Interpretation Comments Urine Phencyclidine Screen (test code = 20940-4) NEGATIVE NEGAT RAUDEL [facility]Urine amphetamines detection by screen method > 1000 ng/[id number] 12:25:00* Test Item Value Reference Range Interpretation Comments Urine Amphetamines Screen (test code = 97336-1) NEGATIVE NEGATI VE [facility]ervilleFluoroscopic procedure less than one hour otoxijdv5306-98-48 12:25:00* Test Item Value Reference Range Interpretation Comments Urine Methamphetamines Screen (test code = Urine Metha mphetamines Screen) NEGATIVE NEGATIVE [facility]Urine benzodiazepines detection by screening [id number] 12:25:00* Test Item Value Reference Range Interpretation Comments Urine Benzodiazepines Screen (test code = 96640-3) NEGATIVE NEG ATIVE [facility]Urine cocaine measurement (mass/volume) 2020-04-07 12:25:00* Test Item Value Reference Range Interpretation Comments Urine Cocaine Screen (test code = 3398-5) NEGATIVE NEGATIVE [facility]Urine cannabinoids detection by screening [id number] 12:25:00* Test Item Value Reference Range Interpretation Comments Urine Cannabinoids Screen (test code = 16610-2) NEGATIVE NEGATI VE THESE RESULTS ARE FOR MEDICAL TREATMENT ONLYTHIS REPORT CONTAINS UNCONFIR MED SCREENING RESULTS*POSITIVE RESULTS WILL BE CONFIRMED BY REFERENCE LAB UPON R EQUEST CUT-OFFDRUG CLASS CONCENTRATION ng/mLAmphetamines 1000Methamphetamines 1000Cocaine 300Opiate 300Phencyc lidine 25Cannabinoid 50Barbiturates 300Benzodiazepine 300Methadone 300[facility] HospitalUrine methadone [id number] 12:25:00* Test Item Value Reference Range Interpretation Comments Urine Methadone Screen (test code = 04187-5) NEGATIVE NEGATIVE THESE RESULTS ARE FOR MEDICAL TREATMENT ONLYTHIS REPORT CONTAINS UNCONFIR MED SCREENING RESULTS*POSITIVE RESULTS WILL BE CONFIRMED BY REFERENCE LAB UPON R EQUEST CUT-OFFDRUG CLASS CONCENTRATION ng/mLAmphetamines 1000Methamphetamines 1000Cocaine Metabolite 300Opiate 300Phencyc lidine 25Cannabinoid 50Barbiturates 300Benzodiazepine 300Methadone 300[facility] HospitalUrine urobilinogen measurement by test strip (mass/volume)2020-04-07 12:25:00* Test Item Value Reference Range Interpretation Comments Urine Urobilinogen (test code = 78202-3) 8 0.2-1 [facility]Urine total bilirubin measurement (mass/volume)2020-04-07 12:25:00* Test Item Value Reference Range Interpretation Comments Urine Bilirubin (test code = 1978-6) NEGATIVE NEGATIVE [facility]Urine erythrocytes vaxhtxldu3156-76-39 12:25:00* Test Item Value Reference Range Interpretation Comments Urine Blood (test code = 13660-4) NEGATIVE NEGATIVE [facility]ervilleAutomated urine sediment leukocyte count by microscopy (number/high power field)2020-04-07 12:25:00* Test Item Value Reference Range Interpretation Comments Urine WBC (test code = 5821-4) 0-5 0-5 [facility]ervilleErythrocytes detection in urine sediment by light widlsjncoh8551-53-29 12:25:00* Test Item Value Reference Range Interpretation Comments Urine RBC (test code = 04210-6) 0-5 0-5 [facility]Bacteria detection in urine sediment by light xnouohgydv7327-10-70 12:25:00* Test Item Value Reference Range Interpretation Comments Urine Bacteria (test code = 76232-4) RARE NONE [facility]ervilleEpithelial cells detection in urine sediment by light lpwngqfwux8247-97-14 12:25:00* Test Item Value Reference Range Interpretation Comments Urine Epithelial Cells (test code = 69705-6) RARE NONE [facility]Urine color iwkouewtrfdgm0928-41-21 12:25:00* Test Item Value Reference Range Interpretation Comments Urine Color (test code = 5778-6) YELLOW YELLOW [facility]ervilleUrine rrxlbuv9264-95-64 12:25:00* Test Item Value Reference Range Interpretation Comments Urine Clarity (test code = 75100-4) CLEAR CLEAR [facility] Renaissancepecific gravity of Urine by Test strip 2020-04-07 12:25:00* Test Item Value Reference Range Interpretation Comments Urine Specific Oark (test code = 5811-5) 1.025 1.010-1.02 5 [facility]Urine pH measurement by automated test [id number] 12:25:00* Test Item Value Reference Range Interpretation Comments Urine pH (test code = 62844-0) 6.5 5-7 [facility]ervilleUrine leukocyte esterase detection by jehhfcdk6746-45-06 12:25:00* Test Item Value Reference Range Interpretation Comments Urine Leukocyte Esterase (test code = 5799-2) NEGATIVE NEGATIVE [facility]Urine nitrite fmhqxowbs7081-70-08 12:25:00* Test Item Value Reference Range Interpretation Comments Urine Nitrite (test code = 93290-3) NEGATIVE NEGATIVE [facility]Urine protein measurement by test strip (mass/volume)2020-04-07 12:25:00* Test Item Value Reference Range Interpretation Comments Urine Protein (test code = 5804-0) NEGATIVE NEGATIVE [facility]Urine glucose pjudqkifs6198-83-31 12:25:00* Test Item Value Reference Range Interpretation Comments Urine Glucose (UA) (test code = 2349-9) NEGATIVE NEGATIVE [facility]Urine ketones detection by automated test [id number] 12:25:00* Test Item Value Reference Range Interpretation Comments Urine Ketones (test code = 59695-4) NEGATIVE NEGATIVE [facility]Urine opiates screening cwvr4609-67-18 12:25:00* Test Item Value Reference Range Interpretation Comments Urine Opiates Screen (test code = 40508-5) NEGATIVE NEGATIVE ALL TESTS PERFORMED MANUALLY ON [place] TOX/SEE TESTBaylor [facility]flugervilleBarbiturates screen, [id number] 12:25:00* Test Item Value Reference Range Interpretation Comments Urine Barbiturates Screen (test code = 567735468) NEGATIVE NEGA TIVE [facility]ervilleUrine phencyclidine detection by screening vlhhuu8734-94-57 12:25:00* Test Item Value Reference Range Interpretation Comments Urine Phencyclidine Screen (test code = 47200-7) NEGATIVE NEGAT RAUDEL [facility]ervilleUrine amphetamines detection by screen method > 1000 ng/cM4447-49-52 12:25:00* Test Item Value Reference Range Interpretation Comments Urine Amphetamines Screen (test code = 52873-7) NEGATIVE NEGATI VE [facility]ervilleFluoroscopic procedure less than one hour ividpvia2778-97-30 12:25:00* Test Item Value Reference Range Interpretation Comments Urine Methamphetamines Screen (test code = Urine Metha mphetamines Screen) NEGATIVE NEGATIVE [facility]Urine benzodiazepines detection by screening cpfdsq3464-96-76 12:25:00* Test Item Value Reference Range Interpretation Comments Urine Benzodiazepines Screen (test code = 51177-4) NEGATIVE NEG ATIVE [facility]ervilleUrine cocaine measurement (mass/volume) 2020-04-07 12:25:00* Test Item Value Reference Range Interpretation Comments Urine Cocaine Screen (test code = 3398-5) NEGATIVE NEGATIVE [facility]Urine cannabinoids detection by screening ixumwv3466-70-98 12:25:00* Test Item Value Reference Range Interpretation Comments Urine Cannabinoids Screen (test code = 34224-0) NEGATIVE NEGATI VE THESE RESULTS ARE FOR MEDICAL TREATMENT ONLYTHIS REPORT CONTAINS UNCONFIR MED SCREENING RESULTS*POSITIVE RESULTS WILL BE CONFIRMED BY REFERENCE LAB UPON R EQUEST CUT-OFFDRUG CLASS CONCENTRATION ng/mLAmphetamines 1000Methamphetamines 1000Cocaine 300Opiate 300Phencyc lidine 25Cannabinoid 50Barbiturates 300Benzodiazepine 300Methadone 300[facility] HospitalUrine methadone sxkbzw8339-75-73 12:25:00* Test Item Value Reference Range Interpretation Comments Urine Methadone Screen (test code = 81519-3) NEGATIVE NEGATIVE THESE RESULTS ARE FOR MEDICAL TREATMENT ONLYTHIS REPORT CONTAINS UNCONFIR MED SCREENING RESULTS*POSITIVE RESULTS WILL BE CONFIRMED BY REFERENCE LAB UPON R EQUEST CUT-OFFDRUG CLASS CONCENTRATION ng/mLAmphetamines 1000Methamphetamines 1000Cocaine Metabolite 300Opiate 300Phencyc lidine 25Cannabinoid 50Barbiturates 300Benzodiazepine 300Methadone 300[facility]ervilleUrine urobilinogen measurement by test strip (mass/volume)2020-04-07 12:25:00* Test Item Value Reference Range Interpretation Comments Urine Urobilinogen (test code = 36854-9) 8 0.2-1 [facility]Urine total bilirubin measurement (mass/volume)2020-04-07 12:25:00* Test Item Value Reference Range Interpretation Comments Urine Bilirubin (test code = 1978-6) NEGATIVE NEGATIVE [facility]ervilleUrine erythrocytes kfyzhxrhj3122-31-08 12:25:00* Test Item Value Reference Range Interpretation Comments Urine Blood (test code = 95720-7) NEGATIVE NEGATIVE [facility]ervilleAutomated urine sediment leukocyte count by microscopy (number/high power field)2020-04-07 12:25:00* Test Item Value Reference Range Interpretation Comments Urine WBC (test code = 5821-4) 0-5 0-5 [facility]ervilleErythrocytes detection in urine sediment by light yqubcufebl3560-13-44 12:25:00* Test Item Value Reference Range Interpretation Comments Urine RBC (test code = 66141-1) 0-5 0-5 [facility]ervilleBacteria detection in urine sediment by light skgrupkrej5021-40-44 12:25:00* Test Item Value Reference Range Interpretation Comments Urine Bacteria (test code = 14155-4) RARE NONE [facility]ervilleEpithelial cells detection in urine sediment by light zfivczkeln4725-38-03 12:25:00* Test Item Value Reference Range Interpretation Comments Urine Epithelial Cells (test code = 72448-3) RARE NONE [facility]ervilleUrine opiates screening enmt0937-65-99 12:25:00* Test Item Value Reference Range Interpretation Comments Urine Opiates Screen (test code = 04035-2) NEGATIVE NEGATIVE ALL TESTS PERFORMED MANUALLY ON [place] TOX/SEE TESTBaylor [facility] PflugervilleBarbiturates screen, fmlbr0247-82-40 12:25:00* Test Item Value Reference Range Interpretation Comments Urine Barbiturates Screen (test code = 796392712) NEGATIVE NEGA TIVE [facility]ervilleUrine phencyclidine detection by screening pmtdwp0313-07-62 12:25:00* Test Item Value Reference Range Interpretation Comments Urine Phencyclidine Screen (test code = 32994-3) NEGATIVE NEGAT RAUDEL [facility]ervilleUrine amphetamines detection by screen method > 1000 ng/uL4815-99-54 12:25:00* Test Item Value Reference Range Interpretation Comments Urine Amphetamines Screen (test code = 59517-0) NEGATIVE NEGATI VE [facility]ervilleFluoroscopic procedure less than one hour laemedac5715-47-27 12:25:00* Test Item Value Reference Range Interpretation Comments Urine Methamphetamines Screen (test code = Urine Metha mphetamines Screen) NEGATIVE NEGATIVE [facility]ervilleUrine benzodiazepines detection by screening erwroo0836-94-48 12:25:00* Test Item Value Reference Range Interpretation Comments Urine Benzodiazepines Screen (test code = 81970-4) NEGATIVE NEG ATIVE [facility]ervilleUrine cocaine measurement (mass/volume) 2020-04-07 12:25:00* Test Item Value Reference Range Interpretation Comments Urine Cocaine Screen (test code = 3398-5) NEGATIVE NEGATIVE [facility]ervilleUrine cannabinoids detection by screening ajfwgn3873-90-54 12:25:00* Test Item Value Reference Range Interpretation Comments Urine Cannabinoids Screen (test code = 67620-9) NEGATIVE NEGATI VE THESE RESULTS ARE FOR MEDICAL TREATMENT ONLYTHIS REPORT CONTAINS UNCONFIR MED SCREENING RESULTS*POSITIVE RESULTS WILL BE CONFIRMED BY REFERENCE LAB UPON R EQUEST CUT-OFFDRUG CLASS CONCENTRATION ng/mLAmphetamines 1000Methamphetamines 1000Cocaine 300Opiate 300Phencyc lidine 25Cannabinoid 50Barbiturates 300Benzodiazepine 300Methadone 300[facility] HospitalUrine methadone [id number] 12:25:00* Test Item Value Reference Range Interpretation Comments Urine Methadone Screen (test code = 75401-3) NEGATIVE NEGATIVE THESE RESULTS ARE FOR MEDICAL TREATMENT ONLYTHIS REPORT CONTAINS UNCONFIR MED SCREENING RESULTS*POSITIVE RESULTS WILL BE CONFIRMED BY REFERENCE LAB UPON R EQUEST CUT-OFFDRUG CLASS CONCENTRATION ng/mLAmphetamines 1000Methamphetamines 1000Cocaine Metabolite 300Opiate 300Phencyc lidine 25Cannabinoid 50Barbiturates 300Benzodiazepine 300Methadone 300[facility]ervilleUrine opiates screening [id number] 12:25:00* Test Item Value Reference Range Interpretation Comments Urine Opiates Screen (test code = 38825-7) NEGATIVE NEGATIVE ALL TESTS PERFORMED MANUALLY ON [place] TOX/SEE TESTB[facility] PflugervilleBarbiturates screen, [id number] 12:25:00* Test Item Value Reference Range Interpretation Comments Urine Barbiturates Screen (test code = 115801987) NEGATIVE NEGA TIVE [facility]ervilleUrine phencyclidine detection by screening ofpqig1724-00-32 12:25:00* Test Item Value Reference Range Interpretation Comments Urine Phencyclidine Screen (test code = 94350-3) NEGATIVE NEGAT RAUDEL [facility]ervilleUrine amphetamines detection by screen method > 1000 ng/pC8044-56-37 12:25:00* Test Item Value Reference Range Interpretation Comments Urine Amphetamines Screen (test code = 17951-0) NEGATIVE NEGATI VE [facility]ervilleFluoroscopic procedure less than one hour vkgdosaw6359-88-07 12:25:00* Test Item Value Reference Range Interpretation Comments Urine Methamphetamines Screen (test code = Urine Metha mphetamines Screen) NEGATIVE NEGATIVE [facility]ervilleUrine benzodiazepines detection by screening qgfwzq5560-15-03 12:25:00* Test Item Value Reference Range Interpretation Comments Urine Benzodiazepines Screen (test code = 77669-6) NEGATIVE NEG ATIVE [facility]ervilleUrine cocaine measurement (mass/volume) 2020-04-07 12:25:00* Test Item Value Reference Range Interpretation Comments Urine Cocaine Screen (test code = 3398-5) NEGATIVE NEGATIVE [facility]ervilleUrine cannabinoids detection by screening wzlpzd5139-63-73 12:25:00* Test Item Value Reference Range Interpretation Comments Urine Cannabinoids Screen (test code = 36837-1) NEGATIVE NEGATI VE THESE RESULTS ARE FOR MEDICAL TREATMENT ONLYTHIS REPORT CONTAINS UNCONFIR MED SCREENING RESULTS*POSITIVE RESULTS WILL BE CONFIRMED BY REFERENCE LAB UPON R EQUEST CUT-OFFDRUG CLASS CONCENTRATION ng/mLAmphetamines 1000Methamphetamines 1000Cocaine 300Opiate 300Phencyc lidine 25Cannabinoid 50Barbiturates 300Benzodiazepine 300Methadone 300[facility] HospitalUrine methadone hxhwqc3548-94-18 12:25:00* Test Item Value Reference Range Interpretation Comments Urine Methadone Screen (test code = 75309-1) NEGATIVE NEGATIVE THESE RESULTS ARE FOR MEDICAL TREATMENT ONLYTHIS REPORT CONTAINS UNCONFIR MED SCREENING RESULTS*POSITIVE RESULTS WILL BE CONFIRMED BY REFERENCE LAB UPON R EQUEST CUT-OFFDRUG CLASS CONCENTRATION ng/mLAmphetamines 1000Methamphetamines 1000Cocaine Metabolite 300Opiate 300Phencyc lidine 25Cannabinoid 50Barbiturates 300Benzodiazepine 300Methadone 300[facility] HospitalCT BRAIN [id number] 12:01:00 [facility] [address] [place] [address] Patient Name: AMAURY CONTE MR #: [id number] : 1945 Age/Sex: 74/F Req #: [id number] Adm Physician: Ordered by: NEL BONNER MD Report #: [id number] Location: Room/Bed: Procedure: 6128-2014 CT/CT BRAIN WO Exam Date: 04/07/20 Exam [...] (aPTT) in platelet poor plasma by coagulation [id number] 11:55:00* Test Item Value Reference Range Interpretation Comments Activated Partial Thromboplast Time (test code = 91961-0) 42.7 23.8-35.5 [facility]ervilleFluoroscopic procedure less than one hour krgeenys3937-55-84 11:55:00* Test Item Value Reference Range Interpretation Comments Lactic Acid Level (test code = Lactic Acid Level) 1.9 0.5- 2.0 [facility]ervilleFree thyroxine ydaxs8684-62-05 11:55:00* Test Item Value Reference Range Interpretation Comments Free Thyroxine Index (test code = 29675-8) 3.3708 1.4-3.8 [facility] Renaissanceerum or plasma thyroxine (T4) measurement (mass/volume)2020-04-07 11:55:00* Test Item Value Reference Range Interpretation Comments Thyroxine (T4) (test code = 3026-2) 9.45 4.5-10.9 Our current method for Total T4 is not recommended for use as the only marker fo r evaluating patients for thyroid disorders.[facility] Renaissanceerum or plasma triiodothyronine resin uptake (T3RU)2020-04-07 11:55:00* Test Item Value Reference Range Interpretation Comments Triiodothyronine (T3) Uptake (test code = 3050-2) 35.67 22.5 -37.0 [facility] Renaissanceerum or plasma thyrotropin measurement by detection limit <= 0.005 miu/l (units/volume)2020-04-07 11:55:00* Test Item Value Reference Range Interpretation Comments Thyroid Stimulating Hormone (TSH) (test code = 74577-9) 4.627 0.350-4.940 [facility]ervilleBlood qfflsaq3915-52-60 11:55:00* Test Item Value Reference Range Interpretation Comments Blood Culture (test code = 19302156) NO GROWTH AFTER 48 HOURS [facility] PflugervilleActivated partial thromboplastin time (aPTT) in platelet poor plasma by coagulation opssd3179-71-90 11:55:00* Test Item Value Reference Range Interpretation Comments Activated Partial Thromboplast Time (test code = 40650-9) 42.7 23.8-35.5 [facility]ervilleFluoroscopic procedure less than one hour cjaxnohb2047-91-68 11:55:00* Test Item Value Reference Range Interpretation Comments Lactic Acid Level (test code = Lactic Acid Level) 1.9 0.5- 2.0 [facility]ervilleFree thyroxine mwkol1054-14-15 11:55:00* Test Item Value Reference Range Interpretation Comments Free Thyroxine Index (test code = 70508-2) 3.3708 1.4-3.8 [facility] Renaissanceerum or plasma thyroxine (T4) measurement (mass/volume)2020-04-07 11:55:00* Test Item Value Reference Range Interpretation Comments Thyroxine (T4) (test code = 3026-2) 9.45 4.5-10.9 Our current method for Total T4 is not recommended for use as the only marker fo r evaluating patients for thyroid disorders.[facility] Renaissanceerum or plasma triiodothyronine resin uptake (T3RU)2020-04-07 11:55:00* Test Item Value Reference Range Interpretation Comments Triiodothyronine (T3) Uptake (test code = 3050-2) 35.67 22.5 -37.0 [facility] Renaissanceerum or plasma thyrotropin measurement by detection limit <= 0.005 miu/l (units/volume)2020-04-07 11:55:00* Test Item Value Reference Range Interpretation Comments Thyroid Stimulating Hormone (TSH) (test code = 85459-0) 4.627 0.350-4.940 [facility]ervilleBlood hjvhcgv4540-67-81 11:55:00* Test Item Value Reference Range Interpretation Comments Blood Culture (test code = 19925919) NO GROWTH AFTER 5 DAYS, FINAL REPORT [facility]ervilleFree thyroxine nkurm1162-65-74 11:55:00* Test Item Value Reference Range Interpretation Comments Free Thyroxine Index (test code = 20833-5) 3.3708 1.4-3.8 [facility] Renaissanceerum or plasma thyroxine (T4) measurement (mass/volume)2020-04-07 11:55:00* Test Item Value Reference Range Interpretation Comments Thyroxine (T4) (test code = 3026-2) 9.45 4.5-10.9 Our current method for Total T4 is not recommended for use as the only marker fo r evaluating patients for thyroid disorders.[facility] Renaissanceerum or plasma triiodothyronine resin uptake (T3RU)2020-04-07 11:55:00* Test Item Value Reference Range Interpretation Comments Triiodothyronine (T3) Uptake (test code = 3050-2) 35.67 22.5 -37.0 [facility] Renaissanceerum or plasma thyrotropin measurement by detection limit <= 0.005 miu/l (units/volume)2020-04-07 11:55:00* Test Item Value Reference Range Interpretation Comments Thyroid Stimulating Hormone (TSH) (test code = 61930-2) 4.627 0.350-4.940 [facility]ervilleFree thyroxine djwfv7942-10-44 11:55:00* Test Item Value Reference Range Interpretation Comments Free Thyroxine Index (test code = 15578-9) 3.3708 1.4-3.8 [facility] Renaissanceer[facility] or plasma thyroxine (T4) measurement (mass/volume)2020-04-07 11:55:00* Test Item Value Reference Range Interpretation Comments Thyroxine (T4) (test code = 3026-2) 9.45 4.5-10.9 Our current method for Total T4 is not recommended for use as the only marker fo r evaluating patients for thyroid disorders.[facility] Renaissanceerum or plasma triiodothyronine resin uptake (T3RU)2020-04-07 11:55:00* Test Item Value Reference Range Interpretation Comments Triiodothyronine (T3) Uptake (test code = 3050-2) 35.67 22.5 -37.0 [facility]ervilleFree thyroxine hnvue9370-84-70 11:55:00* Test Item Value Reference Range Interpretation Comments Free Thyroxine Index (test code = 84510-6) 3.3708 1.4-3.8 [facility] Renaissanceer[facility] or plasma thyroxine (T4) measurement (mass/volume)2020-04-07 11:55:00* Test Item Value Reference Range Interpretation Comments Thyroxine (T4) (test code = 3026-2) 9.45 4.5-10.9 Our current method for Total T4 is not recommended for use as the only marker fo r evaluating patients for thyroid disorders.[facility] Renaissanceerum or plasma triiodothyronine resin uptake (T3RU)2020-04-07 11:55:00* Test Item Value Reference Range Interpretation Comments Triiodothyronine (T3) Uptake (test code = 3050-2) 35.67 22.5 -37.0 [facility]GLUBED2020-[facility] 08:44:00* Test Item Value Reference Range Interpretation Comments GLUBED (test code = GLUBED) 128 mg/dL 74-106 H Performed by certified acid purification equipment operator at [facility] BASIC METABOLIC [id number] 03:36:00* Test Item Value Reference Range Interpretation [...] CA) 8.6 mg/dL 8.5-10.1 N BASIC METABOLIC [id number] 03:32:00* Test Item Value Reference Range Interpretation [...] code = CA) mg/dL 8.5-10.1 CBC W/AUTO [id number] 03:19:00* Test Item Value Reference Range Interpretation [...] (test code = MDIFF) NO CBC W/AUTO [id number] 03:17:00* Test Item Value Reference Range Interpretation [...] # (test code = BA#) K/mm3 0.0-0.2 [id number] 21:19:00* Test Item Value Reference Range Interpretation Comments GLUBED (test code = GLUBED) 215 mg/dL 74-106 H Performed by certified acid purification equipment operator at [facility] [id number] 15:38:00* Test Item Value Reference Range Interpretation Comments GLUBED (test code = GLUBED) 227 mg/dL 74-106 H Performed by certified acid purification equipment operator at [facility] [id number] 11:50:00* Test Item Value Reference Range Interpretation Comments GLUBED (test code = GLUBED) 277 mg/dL 74-106 H Performed by certified acid purification equipment operator at [facility] [id number] 08:17:00* Test Item Value Reference Range Interpretation Comments GLUBED (test code = GLUBED) 180 mg/dL 74-106 H Performed by certified acid purification equipment operator at [facility] [id number] 20:14:00* Test Item Value Reference Range Interpretation Comments GLUBED (test code = GLUBED) 208 mg/dL 74-106 H Performed by certified acid purification equipment operator at [facility] [id number] 19:07:00* Test Item Value Reference Range Interpretation Comments GLUBED (test code = GLUBED) 169 mg/dL 74-106 H Performed by certified acid purification equipment operator at [facility] [id number] 13:04:00* Test Item Value Reference Range Interpretation Comments GLUBED (test code = GLUBED) 190 mg/dL 74-106 H Performed by certified acid purification equipment operator at [facility] [id number] 08:23:00* Test Item Value Reference Range Interpretation Comments GLUBED (test code = GLUBED) 143 mg/dL 74-106 H Performed by certified acid purification equipment operator at [facility] COMPREHENSIVE METABOLIC [id number] 06:46:00* Test Item Value Reference Range Interpretation [...] due to change in reagent. COMPREHENSIVE METABOLIC [id number] 06:45:00* Test Item Value Reference Range Interpretation [...] due to change in reagent. CBC W/AUTO [id number] 05:44:00* Test Item Value Reference Range Interpretation [...] (test code = MDIFF) NO CBC W/AUTO [id number] 05:37:00* Test Item Value Reference Range Interpretation [...] # (test code = BA#) K/mm3 0.0-0.2 [id number] 20:53:00* Test Item Value Reference Range Interpretation Comments GLUBED (test code = GLUBED) 226 mg/dL 74-106 H Performed by certified acid purification equipment operator at [facility] [id number] 17:24:00* Test Item Value Reference Range Interpretation Comments GLUBED (test code = GLUBED) 209 mg/dL 74-106 H Performed by certified acid purification equipment operator at [facility] [id number] 12:37:00* Test Item Value Reference Range Interpretation Comments GLUBED (test code = GLUBED) 179 mg/dL 74-106 H Performed by certified acid purification equipment operator at [facility] [id number] 08:06:00* Test Item Value Reference Range Interpretation Comments GLUBED (test code = GLUBED) 144 mg/dL 74-106 H Performed by certified acid purification equipment operator at [facility] [id number] 04:55:00* Test Item Value Reference Range Interpretation Comments GLUBED (test code = GLUBED) 182 mg/dL 74-106 H Performed by certified acid purification equipment operator at [facility] COMPREHENSIVE METABOLIC [id number] 04:30:00* Test Item Value Reference Range Interpretation [...] due to change in reagent. CBC W/AUTO [id number] 03:59:00* Test Item Value Reference Range Interpretation [...] (test code = MDIFF) NO CBC W/AUTO [id number] 03:55:00* Test Item Value Reference Range Interpretation [...] # (test code = BA#) K/mm3 0.0-0.2 [id number] 19:48:00* Test Item Value Reference Range Interpretation Comments GLUBED (test code = GLUBED) 180 mg/dL 74-106 H Performed by certified acid purification equipment operator at [facility] [id number] 15:47:00* Test Item Value Reference Range Interpretation Comments GLUBED (test code = GLUBED) 207 mg/dL 74-106 H Performed by certified acid purification equipment operator at [facility] [id number] 12:22:00* Test Item Value Reference Range Interpretation Comments GLUBED (test code = GLUBED) 167 mg/dL 74-106 H Performed by certified acid purification equipment operator at [facility] [id number] 08:05:00* Test Item Value Reference Range Interpretation Comments GLUBED (test code = GLUBED) 112 mg/dL 74-106 H Performed by certified acid purification equipment operator at [facility] COMPREHENSIVE METABOLIC [id number] 05:27:00* Test Item Value Reference Range Interpretation [...] due to change in reagent. COMPREHENSIVE METABOLIC [id number] 05:19:00* Test Item Value Reference Range Interpretation [...] code = ALKP) IUnit/L 45-117 CBC W/AUTO [id number] 04:57:00* Test Item Value Reference Range Interpretation [...] (test code = MDIFF) NO CBC W/AUTO [id number] 04:49:00* Test Item Value Reference Range Interpretation [...] # (test code = BA#) K/mm3 0.0-0.2 [id number] 21:21:00* Test Item Value Reference Range Interpretation Comments GLUBED (test code = GLUBED) 162 mg/dL 74-106 H Performed by certified acid purification equipment operator at [facility] [id number] 18:39:00* Test Item Value Reference Range Interpretation Comments GLUBED (test code = GLUBED) 233 mg/dL 74-106 H Performed by certified acid purification equipment operator at [facility] - XR CHEST 1 [id number] 16:47:00 FAX: Zaira Beltran MD [phone] [place]: St: ADM Name: AMAURY MAZA [facility] : [birth year] Age/S: 74/F [address] [facility] Unit #: [id number] Loc: V.[address] [place] [address] Phys: Zaira Woodard MD Acct: [id number] Dis Date: Status: ADM IN PHONE #: [phone] Exam Date: 01/06/2020 1611 FAX #: [phone] Reason: SOB EXAMS: CPT CODE: [id number] XR CHEST 1 V 93267 HISTORY: Shortness of breath and d yspnea. [...] [place] H4 Orig Print D/T: S: 01/06/2020 (7315) PAGE 1 Signed Report GLUBED 2020-01-06 16:19:00* Test Item Value Reference Range Interpretation Comments GLUBED (test code = GLUBED) 192 mg/dL 74-106 H Performed by certified acid purification equipment operator at [facility] [id number] 12:12:00* Test Item Value Reference Range Interpretation Comments GLUBED (test code = GLUBED) 112 mg/dL 74-106 H Performed by certified acid purification equipment operator at [facility] [id number] 07:42:00* Test Item Value Reference Range Interpretation Comments GLUBED (test code = GLUBED) 105 mg/dL 74-106 N Performed by certified acid purification equipment operator at [facility] COMPREHENSIVE METABOLIC [id number] 06:08:00* Test Item Value Reference Range Interpretation [...] due to change in reagent. COMPREHENSIVE METABOLIC [id number] 05:58:00* Test Item Value Reference Range Interpretation [...] code = ALKP) IUnit/L 45-117 CBC W/AUTO [id number] 05:31:00* Test Item Value Reference Range Interpretation [...] (test code = MDIFF) NO CBC W/AUTO [id number] 05:30:00* Test Item Value Reference Range Interpretation [...] (test code = BA#) K/mm3 0.0-0.2 VITAMIN [id number] 01:16:00* Test Item Value Reference Range Interpretation Comments VITAMIN B12 (test code = VITB12) 823 pg/mL 193-986 N FOLIC [id number] 01:16:00* Test Item Value Reference Range Interpretation Comments FOLIC ACID (test code = FOL) 18.7 ng/mL 3.10-17.50 H [id number] 00:53:00* Test Item Value Reference Range Interpretation Comments TROPONIN-I (test code = TROPI) <0.015 ng/mL 0-0.045 N URINALYSIS [id number] 23:28:00* Test Item Value Reference Range Interpretation [...] BACU) NONE SEEN #/HPF NONE Urine Source? IfxscsuqTURXBLMT-[id number] 22:41:00* Test Item Value Reference Range Interpretation Comments TROPONIN-I (test code = TROPI) <0.015 ng/mL 0-0.045 N [id number] 21:53:00* Test Item Value Reference Range Interpretation Comments GLUBED (test code = GLUBED) 133 mg/dL 74-106 H Performed by certified acid purification equipment operator at [facility] COMPREHENSIVE METABOLIC [id number] 19:55:00* Test Item Value Reference Range Interpretation [...] reference range due to change in reagent. [id number] 19:55:00* Test Item Value Reference Range Interpretation Comments PHOSPHORUS (test code = PHOS) 2.3 mg/dL 2.5-4.9 L [id number] 19:55:00* Test Item Value Reference Range Interpretation Comments MAGNESIUM (test code = MAG) 2.0 mg/dL 1.8-2.4 N THYROID STIMULATING [id number] 19:55:00* Test Item Value Reference Range Interpretation Comments THYROID STIMULATING HORMONE (test code = TSH) 0.406 uIU/mL 0.36-3.7 4 N TSH REFERENCE RANGES: EUTHYROID: 0.35 - 4.3 mIU/mL HYPO : > 5.5 mIU/mL HYPER : < 0.35 mIU/mL [id number] 19:50:00* Test Item Value Reference Range Interpretation [...] result is a direct measurement.========= COMPREHENSIVE METABOLIC [id number] 19:38:00* Test Item Value Reference Range Interpretation [...] TOTAL (test code = ALKP) IUnit/L 45-117 [id number] 19:38:00* Test Item Value Reference Range Interpretation Comments PHOSPHORUS (test code = PHOS) mg/dL 2.5-4.9 GVZPMDOGS0461-30-39 19:38:00* Test Item Value Reference Range Interpretation Comments MAGNESIUM (test code = MAG) mg/dL 1.8-2.4 THYROID STIMULATING [id number] 19:38:00* Test Item Value Reference Range Interpretation Comments THYROID STIMULATING HORMONE (test code = TSH) uIU/mL 0.36-3.7 4 [id number] 19:32:00* Test Item Value Reference Range Interpretation Comments GLYCOSYLATED HEMOGLOBIN (HA1C) (test code = GLYHGB) 5.4 % HbA1 SUGGESTED DIAGNOSIS: HbA1C (%) Diabetic >6.4Prediabetes 5.7 - 6.4Normal <5.7 ESTIMATED AVERAGE GLUCOSE (test code = EAG) 108 MG/DL - CT L-SPINE W/O [id number] 19:27:00 Name: AMAURY CONTE [facility] : 1945 Age/S: 74 / F [address] [facility] Unit #: [id number] Loc: [place] [address] Phys: Zaira Woodard MD Acct: [id number] Dis Date: Status: ADM IN PHONE #: [phone] Exam Date: 01/05/20201855 FAX #: [phone] Reason: Weakness B/L LE EXAMS: CPT CODE: [id number] CT L-SPINE W/O CONTRAST 63272 HISTORY: Bilateral lower extremity weakness. COMPARISON: None [...] 1 Signed Report (CONTINUED) Name: AMAURY CONTE [facility] : 1945 Age[facility]S: 74 [facility] [address] [facility]: [id number] Loc: [place] [address] Phys: Zaira Woodard MD Acct : [id number] Dis Date: Status: ADM IN PHONE #: [phone] Exam Date: 01/05/20201855 FAX #: [phone] Reason: Weakness B/L LE EXAMS: CPT CODE: [id number] L-SPINE W/O CONTRAST 61501 <Continued> CC: Zaira Woodard MD Technologist:DIEGO PEREZ; CTDI: DLP: Trnscb Date/Time: 01/05/2020 (1926) t.SDR.TH4 Or ig Print D/T: S: 01/05/2020 (1929) PAGE 2 Signed Rep ort - CT C-SPINE W/O [id number] 19:16:00 Name: AMAURY CONTE [facility] : 1945 Age[facility]S: 74 [facility] [address] [facility]: [id number] Loc: [place] [address] Phys: Reina Woodard MD Acct: [id number] Di s Date: Status: ADM IN PHONE #: Exam Date: 01/05/20201851 FAX #: Reason: Parasthesias B/L UE EXAMS: CPT CODE: [id number] CT C-SPINE W/ O CONTRAST 69703 HISTORY: Generalized weak ness and paresthesia. COMPARISON: [...] 1 Signed Report (CONTINUED) Name: GENO CONTE [facility] : 1945 Age/ S: 74 / F [address] [facility] Unit #: [id number] Loc: [place] [address] Phys: Zaira Woodard MD Acct: [id number] Dis Date: Status: ADM IN PHONE #: [phone] E xam Date: 01/05/2020 185 FAX #: [phone] Reason: Parasthesias B/L UE EXAMS: CPT CODE: [id number] CT C-SPINE W/O CONTRAST 13505 <Continued> CC: Zaira Woodard MD Technologist:DIEGO TRAN CT; CTDI: DLP: Trnscb Date/Time: 01/05/2020 (1915) tSIDNEYR.TH4 Orig Print D/T: S: 01/05/2020 (1919) PAGE 2 Signed Report PROTHROMBIN [id number] 19:07:00* Test Item Value Reference Range Interpretation [...] (test code = MDIFF) NO CBC W/AUTO [id number] 18:55:00* Test Item Value Reference Range Interpretation [...] # (test code = BA#) K/mm3 0.0-0.2 [id number] 16:43:00* Test Item Value Reference Range Interpretation Comments GLUBED (test code = GLUBED) 78 mg/dL 74-106 N Performed by certified acid purification equipment operator at [facility] Bedside Bjeruoe8467-16-70 20:20:00* Test Item Value Reference Range Interpretation Comments Bedside Glucose (test code = 17478-1) 131 70-120 H Meter ID: [id number] [facility] PflugervilleBedside Glucose 2018-11-11 20:20:00* Test Item Value Reference Range Interpretation Comments Bedside Glucose (test code = 58554-1) 131 70-120 H Meter ID: [id number] Scott & [facility] [place]flugervilleCreatine Kinase MB 2018-11-11 04:05:00* Test Item Value Reference Range Interpretation Comments Creatine Kinase MB (test code = 57608-5) 0.80 0-5.0 [facility]ugervilleTroponin [id number] 04:05:00* Test Item Value Reference Range Interpretation Comments Troponin I (test code = CBZ6764) 0.005 0-0.300 [facility]ugervilleCreatine Kinase [id number] 04:05:00* Test Item Value Reference Range Interpretation Comments Creatine Kinase MB (test code = 00735-9) 0.80 0-5.0 [facility]ervilleTroponin [id number] 04:05:00* Test Item Value Reference Range Interpretation Comments Troponin I (test code = XRK9378) 0.005 0-0.300 [facility]ervilleB-Type Natriuretic Vqewlfk2166-27-58 03:56:00* Test Item Value Reference Range Interpretation Comments B-Type Natriuretic Peptide (test code = 65991-6) 210.1 0-100 H [facility] PflugervilleCreatine Upbrue1005-54-71 03:56:00* Test Item Value Reference Range Interpretation Comments Creatine Kinase (test code = 2157-6) 37 29-168 [facility]ervilleB-Type Natriuretic Grneidz2362-72-84 03:56:00* Test Item Value Reference Range Interpretation Comments B-Type Natriuretic Peptide (test code = 30611-1) 210.1 0-100 H [facility]ervilleCreatine Qcoory6272-53-41 03:56:00* Test Item Value Reference Range Interpretation Comments Creatine Kinase (test code = 2157-6) 37 29-168 [facility] Renaissanceodium Rotbp3518-65-38 03:46:00* Test Item Value Reference Range Interpretation Comments Sodium Level (test code = 2951-2) 144 136-145 [facility]ervillePotassium Dnarx6456-80-83 03:46:00* Test Item Value Reference Range Interpretation Comments Potassium Level (test code = 2823-3) 4.2 3.5-5.1 [facility]ervilleChloride Jcfno2769-30-67 03:46:00* Test Item Value Reference Range Interpretation Comments Chloride Level (test code = 2075-0) 115 98-107 H [facility]fl[facility]ervilleCarbon Dioxide Hdkbj9225-02-04 03:46:00* Test Item Value Reference Range Interpretation Comments Carbon Dioxide Level (test code = 2028-9) 22 - [facility] PflugervilleAnion [id number] 03:46:00* Test Item Value Reference Range Interpretation Comments Anion Gap (test code = 88083-4) 11.2 8-16 [facility] PflugervilleBlood Urea Lzyhsfcf3624-07-06 03:46:00* Test Item Value Reference Range Interpretation Comments Blood Urea Nitrogen (test code = 3094-0) 20 05-12 [facility]flugervilleCreatinine2019-01-25 03:46:00* Test Item Value Reference Range Interpretation Comments Creatinine (test code = 2160-0) 1.00 0.57-1.11 [facility]ugervilleBUN/Creatinine Ylhwx0756-00-77 03:46:00* Test Item Value Reference Range Interpretation Comments BUN/Creatinine Ratio (test code = 3097-3) 04-11 [facility] PflugervilleEstimat Glomerular Filtration Rate 2018-11-11 03:46:00* Test Item Value Reference Range Interpretation Comments Estimat Glomerular Filtration Rate (test code = 386560929) 54 >60 L Ranges were taken from the National Kidney Disease Education Program and the [facility] literature.Reference ranges:60 or greater: Dfqeuu57-44 ( for 3 consecutive months): Chronic kidney disease 15 or less: Kidney failureBaylor Scott & White Medical Center – PflugervilleGlucose Tfphj6907-65-68 03:46:00* Test Item Value Reference Range Interpretation Comments Glucose Level (test code = FPD1606) 89 74-118 [facility]ugervilleCalcium Etybg7188-65-09 03:46:00* Test Item Value Reference Range Interpretation Comments Calcium Level (test code = 14118-5) 9.0 8.4-10.2 [facility] PflugervilleTotal Oyrogtwcu2223-90-71 03:46:00* Test Item Value Reference Range Interpretation Comments Total Bilirubin (test code = 1975-2) 0.9 0.2-1.2 [facility] PflugervilleAspartate Amino Transf (AST/SGOT) 2018-11-11 03:46:00* Test Item Value Reference Range Interpretation Comments Aspartate Amino Transf (AST/SGOT) (test code = Aspartate Amino Transf (AST/SGOT)) 34 5-34 [facility] PflugervilleAlanine Aminotransferase (ALT/SGPT) 2018-11-11 03:46:00* Test Item Value Reference Range Interpretation Comments Alanine Aminotransferase (ALT/SGPT) (test code = 1742-6) 18 0-55 [facility] PflugervilleTotal Ydufdrg5788-08-71 03:46:00* Test Item Value Reference Range Interpretation Comments Total Protein (test code = 2885-2) 6.1 6.5-8.1 L [facility] PflugervilleAlbumin2019-01-25 03:46:00* Test Item Value Reference Range Interpretation Comments Albumin (test code = 1751-7) 2.9 3.5-5.0 L [facility]flugervilleGlobulin2019-01-25 03:46:00* Test Item Value Reference Range Interpretation Comments Globulin (test code = 64797-6) 3.2 2.3-3.5 [facility] PflugervilleAlbumin/Globulin Fpasu4876-01-95 03:46:00 * Test Item Value Reference Range Interpretation Comments Albumin/Globulin Ratio (test code = 1759-0) 0.9 0.8-2.0 [facility]ugervilleAlkaline Wrgyseqjebb1559-82-18 03:46:00* Test Item Value Reference Range Interpretation Comments Alkaline Phosphatase (test code = 6768-6) 87 40-150 [facility]ugervilleTriglycerides Aikzm8193-33-93 03:46:00* Test Item Value Reference Range Interpretation Comments Triglycerides Level (test code = 2571-8) 86 0-149 [facility]ervilleCholesterol Iykqv3074-16-90 03:46:00* Test Item Value Reference Range Interpretation Comments Cholesterol Level (test code = 2093-3) 109 0-199 Less than 200 mg/dL Low Xvsb829 - 239 mg/dL Borderline Jvis069 m g/dl and greater High Risk [facility] PflugervilleLDL Uwcsrvvlaqy8742-47-03 03:46:00* Test Item Value Reference Range Interpretation Comments LDL Cholesterol (test code = 2089-1) 55 60-130 L [facility] PflugervilleHDL Zcyzkepqcba6192-78-80 03:46:00* Test Item Value Reference Range Interpretation Comments HDL Cholesterol (test code = 2085-9) 37 40-60 L [facility]ugervilleCholesterol/HDL Fwhps5130-69-68 03:46:00 * Test Item Value Reference Range Interpretation Comments Cholesterol/HDL Ratio (test code = 9830-1) 2.9 3.0-3.6 L [facility] Renaissanceodium Gmdae4281-91-43 03:46:00* Test Item Value Reference Range Interpretation Comments Sodium Level (test code = 2951-2) 144 136-145 [facility] PflugervillePotassium Hgoyd8671-24-41 03:46:00* Test Item Value Reference Range Interpretation Comments Potassium Level (test code = 2823-3) 4.2 3.5-5.1 [facility] PflugervilleChloride Nmboq9083-06-59 03:46:00* Test Item Value Reference Range Interpretation Comments Chloride Level (test code = 2075-0) 115 98-107 H [facility] PflugervilleCarbon Dioxide Fvizb6330-70-24 03:46:00* Test Item Value Reference Range Interpretation Comments Carbon Dioxide Level (test code = 2028-9) 22 22-29 [facility] PflugervilleAnion Uib5807-65-56 03:46:00* Test Item Value Reference Range Interpretation Comments Anion Gap (test code = 50803-6) 11.2 8-16 [facility] PflugervilleBlood Urea Azzbleih3884-60-20 03:46:00* Test Item Value Reference Range Interpretation Comments Blood Urea Nitrogen (test code = 3094-0) 20 7-26 [facility] PflugervilleCreatinine2019-01-25 03:46:00* Test Item Value Reference Range Interpretation Comments Creatinine (test code = 2160-0) 1.00 0.57-1.11 [facility] PflugervilleBUN/Creatinine Vfaxg3989-11-41 03:46:00* Test Item Value Reference Range Interpretation Comments BUN/Creatinine Ratio (test code = 3097-3) 20 6-25 [facility] PflugervilleEstimat Glomerular Filtration Rate 2018-11-11 03:46:00* Test Item Value Reference Range Interpretation Comments Estimat Glomerular Filtration Rate (test code = 916717889) 54 >60 L Ranges were taken from the National Kidney Disease Education Program and the [facility] Kidney Foundation literature.Reference ranges:60 or greater: Kindlo94-78 ( for 3 consecutive months): Chronic kidney disease 15 or less: Kidney failureCHI Baptist Saint Anthony'S HospitalGlucose Djjne7959-26-78 03:46:00* Test Item Value Reference Range Interpretation Comments Glucose Level (test code = GNV4816) 89 74-118 [facility] PflugervilleCalcium Capwd7681-98-67 03:46:00* Test Item Value Reference Range Interpretation Comments Calcium Level (test code = 56386-9) 9.0 8.4-10.2 [facility] PflugervilleTotal Yjcqjctsj5188-91-47 03:46:00* Test Item Value Reference Range Interpretation Comments Total Bilirubin (test code = 1975-2) 0.9 0.2-1.2 [facility] PflugervilleAspartate Amino Transf (AST/SGOT) 2018-11-11 03:46:00* Test Item Value Reference Range Interpretation Comments Aspartate Amino Transf (AST/SGOT) (test code = Aspartate Amino Transf (AST/SGOT)) 34 5-34 [facility] PflugervilleAlanine Aminotransferase (ALT/SGPT) 2018-11-11 03:46:00* Test Item Value Reference Range Interpretation Comments Alanine Aminotransferase (ALT/SGPT) (test code = 1742-6) 18 0-55 [facility] PflugervilleTotal Dnedvat4468-75-76 03:46:00* Test Item Value Reference Range Interpretation Comments Total Protein (test code = 2885-2) 6.1 6.5-8.1 L [facility] PflugervilleAlbumin2019-01-25 03:46:00* Test Item Value Reference Range Interpretation Comments Albumin (test code = 1751-7) 2.9 3.5-5.0 L [facility] PflugervilleGlobulin2019-01-25 03:46:00* Test Item Value Reference Range Interpretation Comments Globulin (test code = 78642-9) 3.2 2.3-3.5 [facility] PflugervilleAlbumin/Globulin Rsjta8461-04-11 03:46:00 * Test Item Value Reference Range Interpretation Comments Albumin/Globulin Ratio (test code = 1759-0) 0.9 0.8-2.0 [facility] [facility]ugervilleAlkaline Yvnxqgascty5931-90-72 03:46:00* Test Item Value Reference Range Interpretation Comments Alkaline Phosphatase (test code = 6768-6) 87 40-150 [facility]Triglycerides Aueen6615-81-22 03:46:00* Test Item Value Reference Range Interpretation Comments Triglycerides Level (test code = 2571-8) 86 0-149 [facility]Cholesterol Ziiuh3351-69-91 03:46:00* Test Item Value Reference Range Interpretation Comments Cholesterol Level (test code = 2093-3) 109 0-199 Less than 200 mg/dL Low Ouqf386 - 239 mg/dL Borderline Yabj763 m g/dl and greater High Risk [facility] [place]ervilleLDL Hbsmngtpgko4732-57-22 03:46:00* Test Item Value Reference Range Interpretation Comments LDL Cholesterol (test code = 2089-1) 55 60-130 L [facility]ervilleHDL Wqrnkeyoyuk2595-61-05 03:46:00* Test Item Value Reference Range Interpretation Comments HDL Cholesterol (test code = 2085-9) 37 40-60 L [facility]Cholesterol/HDL Yxcrj2970-51-62 03:46:00 * Test Item Value Reference Range Interpretation Comments Cholesterol/HDL Ratio (test code = 9830-1) 2.9 3.0-3.6 L [facility]ervilleHemoglobin A1c Cezivzc7160-64-36 03:36:00 * Test Item Value Reference Range Interpretation Comments Hemoglobin A1c Percent (test code = Hemoglobin A1c Percent) 5.9 4.0-7.0 [facility]ervilleMagnesium Webte1409-16-03 03:36:00* Test Item Value Reference Range Interpretation Comments Magnesium Level (test code = 26947-3) 2.1 1.3-2.1 [facility]ervilleHemoglobin A1c Xjxmouw9516-07-38 03:36:00 * Test Item Value Reference Range Interpretation Comments Hemoglobin A1c Percent (test code = Hemoglobin A1c Percent) 5.9 4.0-7.0 [facility]ervilleMagnesium Fqykp0394-27-02 03:36:00* Test Item Value Reference Range Interpretation Comments Magnesium Level (test code = 42462-8) 2.1 1.3-2.1 [facility] [place]White Blood Njagv3465-30-97 03:33:00* Test Item Value Reference Range Interpretation Comments White Blood Count (test code = 6690-2) 4.36 4.8-10.8 L [facility] [place]ervilleRed Blood Fspjl9981-41-83 03:33:00* Test Item Value Reference Range Interpretation Comments Red Blood Count (test code = 789-8) 3.85 3.6-5.1 [facility]Hemoglobin2019-01-25 03:33:00* Test Item Value Reference Range Interpretation Comments Hemoglobin (test code = 30525-6) 12.7 12.0-16.0 [facility]Hematocrit2019-01-25 03:33:00* Test Item Value Reference Range Interpretation Comments Hematocrit (test code = 4544-3) 40.3 34.2-44.1 [facility]ervilleMean Corpuscular Kzlgzy5802-39-37 03:33:00* Test Item Value Reference Range Interpretation Comments Mean Corpuscular Volume (test code = 787-2) 104.7 81-99 [facility] Corpuscular Irljxtmrde9636-68-91 03:33:00* Test Item Value Reference Range Interpretation Comments Mean Corpuscular Hemoglobin (test code = 785-6) 33.0 28-32 H [facility] Corpuscular Hemoglobin Concent 2018-11-11 03:33:00* Test Item Value Reference Range Interpretation Comments Mean Corpuscular Hemoglobin Concent (test code = 786-4) 31.5 31-35 [facility] [place]Red Cell Distribution Rmjkn1704-39-98 03:33:00* Test Item Value Reference Range Interpretation Comments Red Cell Distribution Width (test code = 85013-4) 13.8 11.7 -14.4 [facility]ervillePlatelet Bqmfn3164-76-30 03:33:00* Test Item Value Reference Range Interpretation Comments Platelet Count (test code = 777-3) 117 140-360 L [facility]ervilleNeutrophils (%) (Auto)2018-11-11 03:33:00 * Test Item Value Reference Range Interpretation Comments Neutrophils (%) (Auto) (test code = 61090-3) 56.1 38.7-80.0 [facility]ervilleLymphocytes (%) (Auto)2018-11-11 03:33:00 * Test Item Value Reference Range Interpretation Comments Lymphocytes (%) (Auto) (test code = 736-9) 25.2 18.0-39.1 [facility]ervilleMonocytes (%) (Auto)2018-11-11 03:33:00* Test Item Value Reference Range Interpretation Comments Monocytes (%) (Auto) (test code = 5905-5) 12.8 4.4-11.3 H [facility]Eosinophils (%) (Auto)2018-11-11 03:33:00 * Test Item Value Reference Range Interpretation Comments Eosinophils (%) (Auto) (test code = 713-8) 4.8 0.0-6.0 [facility]Basophils (%) (Auto)2018-11-11 03:33:00* Test Item Value Reference Range Interpretation Comments Basophils (%) (Auto) (test code = 706-2) 0.9 0.0-1.0 [facility]ervilleIM GRANULOCYTES %2018-11-11 03:33:00* Test Item Value Reference Range Interpretation Comments IM GRANULOCYTES % (test code = IM GRANULOCYTES %) 0.2 0.0- 1.0 [facility]ervilleNeutrophils # (Auto)2018-11-11 03:33:00* Test Item Value Reference Range Interpretation Comments Neutrophils # (Auto) (test code = 751-8) 2.4 2.1-6.9 [facility]ervilleLymphocytes # (Auto)2018-11-11 03:33:00* Test Item Value Reference Range Interpretation Comments Lymphocytes # (Auto) (test code = 93820-2) 1.1 1.0-3.2 [facility]ervilleMonocytes # (Auto)2018-11-11 03:33:00* Test Item Value Reference Range Interpretation Comments Monocytes # (Auto) (test code = 742-7) 0.6 0.2-0.8 [facility]Eosinophils # (Auto)2018-11-11 03:33:00* Test Item Value Reference Range Interpretation Comments Eosinophils # (Auto) (test code = 711-2) 0.2 0.0-0.4 [facility]Basophils # (Auto)2018-11-11 03:33:00* Test Item Value Reference Range Interpretation Comments Basophils # (Auto) (test code = 704-7) 0.0 0.0-0.1 [facility]ervilleAbsolute Immature Granulocyte (auto 2018-11-11 03:33:00* Test Item Value Reference Range Interpretation Comments Absolute Immature Granulocyte (auto (lyssa t code = Absolute Immature Granulocyte (auto) 0.01 0-0.1 [facility]ervilleWhite Blood Rsugq4382-52-96 03:33:00* Test Item Value Reference Range Interpretation Comments White Blood Count (test code = 6690-2) 4.36 4.8-10.8 L [facility]ervilleRed Blood Ocant6739-81-90 03:33:00* Test Item Value Reference Range Interpretation Comments Red Blood Count (test code = 789-8) 3.85 3.6-5.1 [facility]ervilleHemoglobin2019-01-25 03:33:00* Test Item Value Reference Range Interpretation Comments Hemoglobin (test code = 66368-1) 12.7 12.0-16.0 [facility]ervilleHematocrit2019-01-25 03:33:00* Test Item Value Reference Range Interpretation Comments Hematocrit (test code = 4544-3) 40.3 34.2-44.1 [facility]ervilleMean Corpuscular Zfrnqw9113-25-63 03:33:00* Test Item Value Reference Range Interpretation Comments Mean Corpuscular Volume (test code = 787-2) 104.7 81-99 H [facility]ervilleMean Corpuscular Adlvdsxiom1334-89-77 03:33:00* Test Item Value Reference Range Interpretation Comments Mean Corpuscular Hemoglobin (test code = 785-6) 33.0 28-32 H [facility]ervilleMean Corpuscular Hemoglobin Concent 2018-11-11 03:33:00* Test Item Value Reference Range Interpretation Comments Mean Corpuscular Hemoglobin Concent (test code = 786-4) 31.5 31-35 [facility] [place]ervilleRed Cell Distribution Rbmhh3065-34-39 03:33:00* Test Item Value Reference Range Interpretation Comments Red Cell Distribution Width (test code = 30035-1) 13.8 11.7 -14.4 [facility]ervillePlatelet Unhgo4863-20-81 03:33:00* Test Item Value Reference Range Interpretation Comments Platelet Count (test code = 777-3) 117 140-360 L [facility]ervilleNeutrophils (%) (Auto)2018-11-11 03:33:00 * Test Item Value Reference Range Interpretation Comments Neutrophils (%) (Auto) (test code = 69866-7) 56.1 38.7-80.0 [facility]ervilleLymphocytes (%) (Auto)2018-11-11 03:33:00 * Test Item Value Reference Range Interpretation Comments Lymphocytes (%) (Auto) (test code = 736-9) 25.2 18.0-39.1 [facility]ervilleMonocytes (%) (Auto)2018-11-11 03:33:00* Test Item Value Reference Range Interpretation Comments Monocytes (%) (Auto) (test code = 5905-5) 12.8 4.4-11.3 H [facility]Eosinophils (%) (Auto)2018-11-11 03:33:00 * Test Item Value Reference Range Interpretation Comments Eosinophils (%) (Auto) (test code = 713-8) 4.8 0.0-6.0 [facility]Basophils (%) (Auto)2018-11-11 03:33:00* Test Item Value Reference Range Interpretation Comments Basophils (%) (Auto) (test code = 706-2) 0.9 0.0-1.0 [facility]ervilleIM GRANULOCYTES %2018-11-11 03:33:00* Test Item Value Reference Range Interpretation Comments IM GRANULOCYTES % (test code = IM GRANULOCYTES %) 0.2 0.0- 1.0 [facility]ervilleNeutrophils # (Auto)2018-11-11 03:33:00* Test Item Value Reference Range Interpretation Comments Neutrophils # (Auto) (test code = 751-8) 2.4 2.1-6.9 [facility]ervilleLymphocytes # (Auto)2018-11-11 03:33:00* Test Item Value Reference Range Interpretation Comments Lymphocytes # (Auto) (test code = 99234-8) 1.1 1.0-3.2 [facility]ervilleMonocytes # (Auto)2018-11-11 03:33:00* Test Item Value Reference Range Interpretation Comments Monocytes # (Auto) (test code = 742-7) 0.6 0.2-0.8 [facility]Eosinophils # (Auto)2018-11-11 03:33:00* Test Item Value Reference Range Interpretation Comments Eosinophils # (Auto) (test code = 711-2) 0.2 0.0-0.4 [facility]Basophils # (Auto)2018-11-11 03:33:00* Test Item Value Reference Range Interpretation Comments Basophils # (Auto) (test code = 704-7) 0.0 0.0-0.1 [facility]ervilleAbsolute Immature Granulocyte (auto 2018-11-11 03:33:00* Test Item Value Reference Range Interpretation Comments Absolute Immature Granulocyte (auto (lyssa t code = Absolute Immature Granulocyte (auto) 0.01 0-0.1 [facility] BKC1457-45-54 10:51:00* Test Item Value Reference Range Interpretation Comments Urine WBC (test code = 5821-4) 0-5 0-5 [facility] FUI6494-65-33 10:51:00* Test Item Value Reference Range Interpretation Comments Urine RBC (test code = 27883-8) NONE 0-5 [facility] Dhnufzuh4769-51-12 10:51:00* Test Item Value Reference Range Interpretation Comments Urine Bacteria (test code = 63038-2) RARE NONE [facility]ervilleUrine Epithelial Vzgkp3538-47-76 10:51:00 * Test Item Value Reference Range Interpretation Comments Urine Epithelial Cells (test code = 60163-4) FEW NONE [facility] QBH9431-97-88 10:51:00* Test Item Value Reference Range Interpretation Comments Urine WBC (test code = 5821-4) 0-5 0-5 [facility] EEV9618-85-73 10:51:00* Test Item Value Reference Range Interpretation Comments Urine RBC (test code = 79779-2) NONE 0-5 [facility] Gstzuzjj8460-58-12 10:51:00* Test Item Value Reference Range Interpretation Comments Urine Bacteria (test code = 50535-4) RARE NONE [facility] Epithelial Xweuw1691-23-18 10:51:00 * Test Item Value Reference Range Interpretation Comments Urine Epithelial Cells (test code = 42529-1) FEW NONE [facility]ervilleUrine Euqlj9149-03-05 10:38:00* Test Item Value Reference Range Interpretation Comments Urine Color (test code = 5778-6) YELLOW YELLOW [facility]ervilleUrine Hthebxm4996-91-05 10:38:00* Test Item Value Reference Range Interpretation Comments Urine Clarity (test code = 39676-8) CLEAR CLEAR [facility]ervilleUrine Specific Gfkcsts1843-24-09 10:38:00 * Test Item Value Reference Range Interpretation Comments Urine Specific Oark (test code = 5811-5) 1.020 1.010-1.02 5 [facility]ervilleUrine tQ9544-49-89 10:38:00* Test Item Value Reference Range Interpretation Comments Urine pH (test code = 87487-4) 6 5-7 [facility]ervilleUrine Leukocyte Tkfkzweg5882-73-96 10:38:00* Test Item Value Reference Range Interpretation Comments Urine Leukocyte Esterase (test code = 5799-2) NEGATIVE NEGATIVE [facility] Mojbonh8683-14-69 10:38:00* Test Item Value Reference Range Interpretation Comments Urine Nitrite (test code = 03508-5) NEGATIVE NEGATIVE [facility] Gtxdkdk9715-97-54 10:38:00* Test Item Value Reference Range Interpretation Comments Urine Protein (test code = 5804-0) NEGATIVE NEGATIVE [facility] Glucose (UA)2018-11-10 10:38:00* Test Item Value Reference Range Interpretation Comments Urine Glucose (UA) (test code = 2349-9) NEGATIVE NEGATIVE [facility]ervilleUrine Fqyhduy4437-63-08 10:38:00* Test Item Value Reference Range Interpretation Comments Urine Ketones (test code = 08994-2) NEGATIVE NEGATIVE [facility] Zxrpadedekdh7241-08-09 10:38:00* Test Item Value Reference Range Interpretation Comments Urine Urobilinogen (test code = 58299-4) 0.2 0.2-1 [facility]ervilleUrine Qcmllchqe6015-55-84 10:38:00* Test Item Value Reference Range Interpretation Comments Urine Bilirubin (test code = 1978-6) NEGATIVE NEGATIVE [facility] Oyikd2567-03-91 10:38:00* Test Item Value Reference Range Interpretation Comments Urine Blood (test code = 40357-9) NEGATIVE NEGATIVE [facility]ervilleUrine Bxnbr8420-70-02 10:38:00* Test Item Value Reference Range Interpretation Comments Urine Color (test code = 5778-6) YELLOW YELLOW [facility]ervilleUrine Uljzmcx4850-50-67 10:38:00* Test Item Value Reference Range Interpretation Comments Urine Clarity (test code = 84033-5) CLEAR CLEAR [facility]ervilleUrine Specific Uunwurd9075-60-39 10:38:00 * Test Item Value Reference Range Interpretation Comments Urine Specific Oark (test code = 5811-5) 1.020 1.010-1.02 5 [facility]ervilleUrine mU0092-78-22 10:38:00* Test Item Value Reference Range Interpretation Comments Urine pH (test code = 56793-1) 6 5-7 [facility]ervilleUrine Leukocyte Xnejurwo7162-87-16 10:38:00* Test Item Value Reference Range Interpretation Comments Urine Leukocyte Esterase (test code = 5799-2) NEGATIVE NEGATIVE [facility]ervilleUrine Fdrjuku7327-48-29 10:38:00* Test Item Value Reference Range Interpretation Comments Urine Nitrite (test code = 59192-1) NEGATIVE NEGATIVE [facility]ervilleUrine Lntnded8253-49-84 10:38:00* Test Item Value Reference Range Interpretation Comments Urine Protein (test code = 5804-0) NEGATIVE NEGATIVE [facility]ervilleUrine Glucose (UA)2018-11-10 10:38:00* Test Item Value Reference Range Interpretation Comments Urine Glucose (UA) (test code = 2349-9) NEGATIVE NEGATIVE [facility] Cjhhycv3129-47-11 10:38:00* Test Item Value Reference Range Interpretation Comments Urine Ketones (test code = 52249-1) NEGATIVE NEGATIVE [facility]Urine Ebovgdaxwmvf3058-03-12 10:38:00* Test Item Value Reference Range Interpretation Comments Urine Urobilinogen (test code = 10685-0) 0.2 0.2-1 [facility]ervilleUrine Upaltzxvj5952-35-30 10:38:00* Test Item Value Reference Range Interpretation Comments Urine Bilirubin (test code = 1978-6) NEGATIVE NEGATIVE [facility]ervilleUrine Oguzu1589-20-43 10:38:00* Test Item Value Reference Range Interpretation Comments Urine Blood (test code = 96406-8) NEGATIVE [facility]GATIVE [facility] PN[facility]22 09:41:00 [facility] [address] [address] Patient Name: AMAURY CONTE MR #: [id number] : Age/Sex: 73/F Req #: [id number] Adm Physician: Ordered by: NEL BONNER MD Report #: [id number] Location: ER Room/Bed: Procedure: CT/CT BRAIN WO [...] intracranial hemorrhage or cortical infarct. 2. 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 Signed by: Dr. Salma Marley M.D. on 10/19 9:44 AM Dictated By: SALMA MARLEY MD 3 Transcribed By: JUAN on 11/10/18943 [employer]UE[employer] DEVELOPER Y TO: NEL BONNER MD Thyroid Stimulating Hormone (TSH)2018-11-10 09:35:00* Test Item Value Reference Range Interpretation Comments Thyroid Stimulating Hormone (TSH) (test code = 35938-8) 1.655 0.350-4.940 [facility]ervilleThyroid Stimulating Hormone (TSH) 2018-11-10 09:35:00* Test Item Value Reference Range Interpretation Comments Thyroid Stimulating Hormone (TSH) (test code = 71724-6) 1.655 0.350-4.940 [facility]flugervilleCHEST SINGLE (PORTABLE)2018-11-10 09:07:00 [facility] [address] [place] [address] Patient Name: AMAURY CONTE MR #: [id number] : 1945 Age/Sex: 73/F Req #: [id number] Adm Physician: Ordered by: NEL BONNER MD Report #: [id number] Location: Room/Bed: Procedure: 0124-00 17 DX/CHEST SINGLE [...] 11/10/18908 COPY TO: NEL BONNER MD Prothrombin Xbgn1680-63-48 09:04:00* Test Item Value Reference Range Interpretation Comments Prothrombin Time (test code = 5902-2) 15.1 11.9-14.5 H [facility]ervilleProthromb Time International Ratio 2018-11-10 09:04:00* Test Item Value Reference Range Interpretation Comments Prothromb Time International Ratio (test code = 6301-6) 1.09 Oral Anticoagulant Therapy INR Values:1. Low Intensity Therapy 1.5 - 2.02 . Moderate Intensity Therapy 2.0 - 3.03. High Intensity Therapy(1) 2.5 - 3. 54. High Intensity Therapy(2) 3.0 - 4.05. Panic Value INR > 5.0 [facility]ugervilleActivated Partial Thromboplast Time 2018-11-10 09:04:00* Test Item Value Reference Range Interpretation Comments Activated Partial Thromboplast Time (test code = 50228-7) 35.5 23.8-35.5 [facility]ervilleProthrombin Mhnv4066-00-66 09:04:00* Test Item Value Reference Range Interpretation Comments Prothrombin Time (test code = 5902-2) 15.1 11.9-14.5 H [facility]ervilleProthromb Time International Ratio 2018-11-10 09:04:00* Test Item Value Reference Range Interpretation Comments Prothromb Time International Ratio (test code = 6301-6) 1.09 Oral Anticoagulant Therapy INR Values:1. Low Intensity Therapy 1.5 - 2.02 . Moderate Intensity Therapy 2.0 - 3.03. High Intensity Therapy(1) 2.5 - 3. 54. High Intensity Therapy(2) 3.0 - 4.05. Panic Value INR > 5.0 [facility]ervilleActivated Partial Thromboplast Time 2018-11-10 09:04:00* Test Item Value Reference Range Interpretation Comments Activated Partial Thromboplast Time (test code = 02801-4) 35.5 23.8-35.5 [facility]ervilleCHEM JDITY2625-38-59 16:55:0050[facility]annCHEM ZRQIA1291-51-87 16:55:004.3[facility] HermannCHEM CRWVO0731-77-35 16:55:77410Detgimpt HermannCHEM UKVRG9847-32-77 16:55:0025[facility] HermannCHEM INGWA3535-12-11 16:55:009.2[facility] HermannCHEM HLYZS9284-92-63 16:55:001.10 [facility] HermannCHEM IFFSQ6139-12-81 16:55:0024[facility] HermannCHEM PANEL 2016-10-15 16:55:68189Qimacths HermannCHEM WKQQO8155-07-45 16:55:44055Rjadblec HermannCHEM CDNUZ9495-86-99 16:55:0011.3[facility] SjydxgoXSYNYYZPVY7656-51-82 16:55:001.3[facility] OmilezzQEFMTMILUV0381-49-02 16:55:003.6[facility] Govind WETXZGXNDK3819-70-61 16:55:000.6[facility] EhhbfsoYTUAWJZENS9842-50-49 16:55:000.7 [facility] WkshfuqTIBRZESLLY6665-55-44 16:55:000.2[facility] HermannHEMATOLOGY 2016-10-15 16:55:0062.5[facility] KzmzdngHPNQQWQMDB6949-16-72 16:55:0022.7[facility] HaglcooHBRRZKYVFG5651-24-03 16:55:003.4[facility] EjaiasbWLUGSJXVNN5971-55-81 16:55:0010.7[facility] AuexyyzUUUKYMFWMO1143-41-14 16:55:00* Test Item Value Reference Range Interpretation Comments PTT (test code = PTT) 32.6 s 22.9-35.8 [facility] JsdzvujTMISHTEAMI2145-91-87 16:55:001.26[facility] HermannHEMATOLOGY 2016-10-15 16:55:00* Test Item Value Reference Range Interpretation Comments PT (test code = PT) 16.1 s 12.0-14.7 [facility] DwmuwpzSCFGGAEYPK2609-21-13 16:55:00* Test Item Value Reference Range Interpretation Comments MCH (test code = MCH) 31.1 pg 27.0-31.0 [facility] ZvqcxobPRNSAMVBJS3840-60-63 16:55:0095.1[facility] HermannHEMATOLOGY 2016-10-15 16:55:0032.7[facility] JbsndarTCMDHPCZCO8442-61-62 16:55:0042.7[facility] OfurcngKUDGYDYHEV2426-31-55 16:55:009.9[facility] FnlaqzbZFTLCBNWBJ9103-96-54 16:55:44193Gyanxgqv JunuwzkXAOTTRXDVS4156-25-59 16:55:0014.0[facility] ZWPJSEBTDD6264-35-45 16:55:004.49[facility] DrfcaioRWMPTBBOVC6603-66-61 16:55:00 5.8[facility] HdilameTQJKJMMEBI4499-75-21 16:55:0014.0[facility]
--- NOTE | 2020-07-17 10:32 | NUR ---
CALL RECEIVED FROM [facility]. SPOKE Santa ALLEN. REQUESTED ORDERS FOR PT. ORDERS FAXED TO OFF: [phone] / FAX: [phone]
== END 2020-07-09 15:47 | disposition home or self-care (01) | DRG 698 ==
LOC: ER 16:14 → ERHOLD 18:51 → MED/SURG 22:16 → MED/SURG3 07-08 13:31
PROVIDERS: ADMIT Internal Medicine; ATTEND Internal Medicine
DX: T83.511A Infection and inflammatory reaction due to indwelling urethral catheter, initial encounter (principal); J15.9 Unspecified bacterial pneumonia; I50.33 Acute on chronic diastolic (congestive) heart failure; K72.00 Acute and subacute hepatic failure without coma; I48.20 Chronic atrial fibrillation, unspecified; Z68.41 Body mass index [BMI] 40.0-44.9, adult; I11.0 Hypertensive heart disease with heart failure; N39.0 Urinary tract infection, site not specified; D50.0 Iron deficiency anemia secondary to blood loss (chronic); E11.9 Type 2 diabetes mellitus without complications; K21.9 Gastro-esophageal reflux disease without esophagitis; Z87.440 Personal history of urinary (tract) infections; Z95.810 Presence of automatic (implantable) cardiac defibrillator; Z83.3 Family history of diabetes mellitus; Z82.49 Family history of ischemic heart disease and other diseases of the circulatory system; Z11.59 Encounter for screening for other viral diseases; R42 Dizziness and giddiness; N95.2 Postmenopausal atrophic vaginitis; N81.6 Rectocele; E66.9 Obesity, unspecified
CPT/HCPCS: 36415; 70450; 71045; 78278; 80053; 80061; 80307; 81001; 82140; 82270; 82550; 82553; 82607; 82746; 82948; 83540; 83605; 83735; 83880; 84100; 84466; 84484; 85025; 85045; 85610; 85730; 87040; 87086; 90732; 93005; 93306; 99284; A9512; J0456; J0696; J1644; J2060; J7030; J7040; U0002

== ENCOUNTER 2020-08-19 17:42 | Inpatient (IN) | payer MEDICARE ==
[~2020-08-19] VITALS: Ht 157.5 cm; Wt 102.1 kg
[~2020-08-19 17:42] MED LIST changes: +GLIPIZIDE ER5 MG; +XIFAXAN550 MG PO
[2020-08-19] MEDS ORDERED: SODIUM CHLORIDE 0.9% 500ML 500 ML IV STA (17:58)
[2020-08-19] MEDS ORDERED: ASPIRIN 81 MG CHEW TAB PO ONE (18:00)
[2020-08-19 18:27] LABS: BASOPHILS # (AUTO) 0.1 (0.0-0.1); EOSINOPHILS # (AUTO) 0.1 (0.0-0.4); EOSINOPHILS % 4.7 % (0.0-6.0); LYMPHOCYTES % 33.2 % (18.0-39.1); MEAN CORPUSCULAR HEMOGLOBIN 29.1 pg (28-32); MEAN CORPUSCULAR HGB CONC 29.3 g/dL (31-35); MEAN CORPUSCULAR VOLUME 99.6 fL (81-99); MONOCYTES # (AUTO) 0.5 (0.2-0.8); NEUTROPHILS # (AUTO) 1.2 (2.1-6.9); NEUTROPHILS % 41.8 % (38.7-80.0); PLATELET COUNT 143 x10e3/uL (140-360); RED CELL DISTRIBUTION WIDTH 18.3 % (11.7-14.4)
[2020-08-19 18:29] LABS: HEMATOCRIT 22.9 % (34.2-44.1); HEMOGLOBIN 6.7 g/dL (12.0-16.0)
[2020-08-19] MEDS ORDERED: SODIUM CHLORIDE 0.9% 250ML 250 ML IV ONE (18:30)
[2020-08-19 18:46] LABS: ANION GAP 13.5 mmol/L (8-16); CALCIUM 9.2 mg/dL (8.4-10.2); CREATININE, SERUM 1.93 mg/dL (0.57-1.11); POTASSIUM 4.5 mmol/L (3.5-5.1)
[2020-08-19] MEDS ORDERED: LACTULOSE SYRUP 20 GM/30 ML UDC PO PRN (19:30)
[2020-08-19 20:33] VITALS: BP 86/50
[2020-08-19 21:17] VITALS: BP 86/50
[2020-08-19] MEDS ORDERED: MECLIZINE HCL 12.5 MG TAB PO PRN (22:15)
[2020-08-19] MEDS ORDERED: ACETAMINOPHEN 325 MG TAB PO PRN (22:15)
[2020-08-19] MEDS ORDERED: SODIUM CHLORIDE 0.9% 1000ML 1,000 ML IV SCH (22:15)
[2020-08-19] MEDS ORDERED: DEXTROSE 50% SYRINGE 50 ML IV PRN (22:15)
[2020-08-19 22:16] VITALS: BP 86/50
[2020-08-19] MEDS: TRAMADOL HCL 50 MG TAB PO PRN (22:56)
[2020-08-19] MEDS ORDERED: SODIUM CHLORIDE 0.9% 250ML 250 ML ONE (23:05)
[2020-08-20] VITALS (8 sets, daily range): BP systolic 80–121; BP diastolic 47–59
[2020-08-20 05:26] LABS: BASOPHILS # (AUTO) 0.1 (0.0-0.1); BASOPHILS % 1.8 % (0.0-1.0); EOSINOPHILS # (AUTO) 0.2 (0.0-0.4); EOSINOPHILS % 4.8 % (0.0-6.0); HEMATOCRIT 28.9 % (34.2-44.1); HEMOGLOBIN 8.9 g/dL (12.0-16.0); LYMPHOCYTES # (AUTO) 1.2 (1.0-3.2); LYMPHOCYTES % 34.4 % (18.0-39.1); MEAN CORPUSCULAR HEMOGLOBIN 29.3 pg (28-32); MEAN CORPUSCULAR HGB CONC 30.8 g/dL (31-35); MEAN CORPUSCULAR VOLUME 95.1 fL (81-99); MONOCYTES # (AUTO) 0.5 (0.2-0.8); MONOCYTES % 16.2 % (4.4-11.3); NEUTROPHILS # (AUTO) 1.4 (2.1-6.9); NEUTROPHILS % 42.2 % (38.7-80.0); PLATELET COUNT 144 x10e3/uL (140-360); RED BLOOD COUNT 3.04 x10e6/uL (3.6-5.1); RED CELL DISTRIBUTION WIDTH 19.9 % (11.7-14.4)
[2020-08-20 06:18] LABS: CREATINE KINASE MB 1.7 ng/mL (0-5.0)
[2020-08-20] MEDS: INSULIN LISPRO 100 UNIT/1 ML 3ML VIAL SQ SCH ×4 (07:30→21:00)
[2020-08-20 08:13] LABS: ALBUMIN 3.2 g/dL (3.5-5.0); ALBUMIN/GLOBULIN RATIO 0.9 (0.8-2.0); ANION GAP 12.7 mmol/L (8-16); CALCIUM 9.2 mg/dL (8.4-10.2); CREATININE, SERUM 1.88 mg/dL (0.57-1.11); POTASSIUM 4.7 mmol/L (3.5-5.1)
[2020-08-20] MEDS ORDERED: FENOFIBRATE 145 MG TAB PO SCH (09:00)
[2020-08-20] MEDS ORDERED: FUROSEMIDE 20 MG TAB PO SCH (09:00)
[2020-08-20] MEDS: PANTOPRAZOLE 40 MG 10ML VIAL IV SCH ×2 (09:27→16:50)
[2020-08-20] MEDS: HYDROCHLOROTHIAZIDE 25 MG TAB PO SCH (09:28)
[2020-08-20] MEDS: ISOSORBIDE MONONITRATE 30 MG TAB CR PO SCH (09:28)
[2020-08-20] MEDS: LEVOTHYROXINE SODIUM 88 MCG TAB PO SCH (09:29)
[2020-08-20] MEDS: LACTULOSE SYRUP 20 GM/30 ML UDC PO SCH ×2 (09:29→16:50)
[2020-08-20] MEDS: ASCORBIC ACID 500 MG TAB PO SCH (09:29)
[2020-08-20] MEDS: RIFAXIMIN 550 MG TABLET PO SCH ×2 (09:31→16:50)
[2020-08-20] MEDS: FERROUS SULFATE 325 MG TAB PO SCH (09:32)
[2020-08-20] MEDS ORDERED: ULTRAM 50MG50 MG PO (09:41)
[2020-08-20] MEDS ORDERED: FERROUS SULFAT325 MG PO (09:41)
[2020-08-20] MEDS ORDERED: PANTOPRAZOLE SO40 MG PO (09:41)
[2020-08-20] MEDS ORDERED: ASCORBIC ACID500 MG PO (09:41)
[2020-08-20] MEDS ORDERED: MECLIZINE HCL12.5 MG PO (09:41)
[2020-08-20] MEDS ORDERED: POLYETHYLENE GLYCOL 3350 17 GM PACK PO ONE (10:00)
[2020-08-20 16:11] LABS: HEMATOCRIT 28.5 % (34.2-44.1); HEMOGLOBIN 8.8 g/dL (12.0-16.0)
[2020-08-20 16:40] LABS: CREATINE KINASE MB 2.1 ng/mL (0-5.0)
[2020-08-20] MEDS: FUROSEMIDE INJ 10 MG/ML 2 ML VIAL IV SCH (16:50)
[2020-08-20] MEDS ORDERED: OXYBUTYNIN CHLORIDE XL 5 MG TAB PO SCH (18:00)
[2020-08-21] VITALS: BP 104/51
[2020-08-21 04:00] VITALS: BP 118/59
[2020-08-21 06:11] LABS: BASOPHILS # (AUTO) 0.1 (0.0-0.1); BASOPHILS % 1.6 % (0.0-1.0); EOSINOPHILS # (AUTO) 0.2 (0.0-0.4); EOSINOPHILS % 6.1 % (0.0-6.0); HEMATOCRIT 28.2 % (34.2-44.1); HEMOGLOBIN 8.7 g/dL (12.0-16.0); LYMPHOCYTES # (AUTO) 0.8 (1.0-3.2); LYMPHOCYTES % 27.2 % (18.0-39.1); MEAN CORPUSCULAR HEMOGLOBIN 29.6 pg (28-32); MEAN CORPUSCULAR HGB CONC 30.9 g/dL (31-35); MEAN CORPUSCULAR VOLUME 95.9 fL (81-99); MONOCYTES # (AUTO) 0.5 (0.2-0.8); MONOCYTES % 15.2 % (4.4-11.3); NEUTROPHILS # (AUTO) 1.5 (2.1-6.9); NEUTROPHILS % 48.9 % (38.7-80.0); PLATELET COUNT 137 x10e3/uL (140-360); RED BLOOD COUNT 2.94 x10e6/uL (3.6-5.1); RED CELL DISTRIBUTION WIDTH 20.7 % (11.7-14.4)
[2020-08-21] MEDS: LEVOTHYROXINE SODIUM 88 MCG TAB PO SCH (06:27)
[2020-08-21] MEDS: FERROUS SULFATE 325 MG TAB PO SCH (06:27)
[2020-08-21 06:33] LABS: ALBUMIN 2.9 g/dL (3.5-5.0); ALBUMIN/GLOBULIN RATIO 0.8 (0.8-2.0); ANION GAP 9.3 mmol/L (8-16); CALCIUM 9.1 mg/dL (8.4-10.2); CREATININE, SERUM 2.11 mg/dL (0.57-1.11); POTASSIUM 4.3 mmol/L (3.5-5.1)
[2020-08-21] MEDS: INSULIN LISPRO 100 UNIT/1 ML 3ML VIAL SQ SCH ×2 (07:30→11:30)
[2020-08-21 07:36] VITALS: BP 108/53
[2020-08-21] MEDS: PANTOPRAZOLE 40 MG 10ML VIAL IV SCH (08:15)
[2020-08-21] MEDS: FUROSEMIDE INJ 10 MG/ML 2 ML VIAL IV SCH (08:15)
[2020-08-21] MEDS: ASCORBIC ACID 500 MG TAB PO SCH (08:16)
[2020-08-21] MEDS: RIFAXIMIN 550 MG TABLET PO SCH (08:16)
[2020-08-21] MEDS: LACTULOSE SYRUP 20 GM/30 ML UDC PO SCH (08:16)
[2020-08-21] MEDS: HYDROCHLOROTHIAZIDE 25 MG TAB PO SCH (08:17)
[2020-08-21] MEDS: ISOSORBIDE MONONITRATE 30 MG TAB CR PO SCH (08:17)
[2020-08-21 08:57] VITALS: BP 108/53
[2020-08-21] MEDS ORDERED: FUROSEMIDE INJ 10 MG/ML 2 ML VIAL IV SCH (09:00)
[2020-08-21 10:23] VITALS: BP 110/64
[2020-08-21] MEDS: TRAMADOL HCL 50 MG TAB PO PRN (10:25)
[2020-08-21 11:34] VITALS: BP 104/63
[2020-08-21] MEDS ORDERED: PANTOPRAZOLE SOD 40 MG TABEC PO SCH (16:30)
== END 2020-08-21 13:53 | disposition home or self-care (01) | DRG 291 ==
LOC: ER 18:25 → ERHOLD 18:32 → MED/SURG3 20:22
PROVIDERS: ADMIT Internal Medicine; ATTEND Internal Medicine
PROC: 30230N1 Transfusion of Nonautologous Red Blood Cells into Peripheral Vein, Open Approach (ICD-10-PCS; principal; 2020-08-19)
DX: I13.0 Hypertensive heart and chronic kidney disease with heart failure and stage 1 through stage 4 chronic kidney disease, or unspecified chronic kidney disease (principal); I50.33 Acute on chronic diastolic (congestive) heart failure; I48.20 Chronic atrial fibrillation, unspecified; Z68.41 Body mass index [BMI] 40.0-44.9, adult; D62 Acute posthemorrhagic anemia; E11.22 Type 2 diabetes mellitus with diabetic chronic kidney disease; N18.30 Chronic kidney disease, stage 3 unspecified; E66.01 Morbid (severe) obesity due to excess calories; E03.9 Hypothyroidism, unspecified; Z95.0 Presence of cardiac pacemaker; Z90.710 Acquired absence of both cervix and uterus; K74.60 Unspecified cirrhosis of liver; Z90.49 Acquired absence of other specified parts of digestive tract; R33.9 Retention of urine, unspecified
CPT/HCPCS: 36415; 71045; 71250; 80053; 82140; 82270; 82550; 82553; 82948; 83036; 83690; 83880; 84443; 84484; 85014; 85018; 85025; 86850; 86900; 86920; 93005; 99284; J1940; J7030; J7050; P9016; U0002

== ENCOUNTER 2020-09-15 21:37 | Observation (INO) | payer MEDICARE ==
[~2020-09-15] VITALS: Ht 154.9 cm; Wt 104.3 kg
[2020-09-15 22:01] LABS: BASOPHILS % 1.2 % (0.0-1.0); EOSINOPHILS # (AUTO) 0.2 (0.0-0.4); EOSINOPHILS % 5.2 % (0.0-6.0); LYMPHOCYTES # (AUTO) 0.8 (1.0-3.2); LYMPHOCYTES % 24.5 % (18.0-39.1); MEAN CORPUSCULAR HEMOGLOBIN 29.3 pg (28-32); MEAN CORPUSCULAR HGB CONC 28.6 g/dL (31-35); MEAN CORPUSCULAR VOLUME 102.6 fL (81-99); MONOCYTES # (AUTO) 0.5 (0.2-0.8); MONOCYTES % 15.3 % (4.4-11.3); NEUTROPHILS # (AUTO) 1.7 (2.1-6.9); NEUTROPHILS % 53.2 % (38.7-80.0); PLATELET COUNT 134 x10e3/uL (140-360); RED BLOOD COUNT 2.73 x10e6/uL (3.6-5.1); RED CELL DISTRIBUTION WIDTH 20.1 % (11.7-14.4)
[2020-09-15 22:27] LABS: ALBUMIN 3.1 g/dL (3.5-5.0); ALBUMIN/GLOBULIN RATIO 0.9 (0.8-2.0); ANION GAP 11.6 mmol/L (8-16); CALCIUM 9.1 mg/dL (8.4-10.2); CREATININE, SERUM 1.5 mg/dL (0.57-1.11); POTASSIUM 4.6 mmol/L (3.5-5.1)
[2020-09-15 22:33] LABS: CREATINE KINASE MB 1.8 ng/mL (0-5.0)
[2020-09-16] VITALS (8 sets, daily range): BP systolic 95–121; BP diastolic 45–53
[2020-09-16 00:03] LABS: BILIRUBIN,URINE NEGATIVE (NEGATIVE); CLARITY,URINE CLEAR (CLEAR); COLOR,URINE YELLOW (YELLOW); KETONES,URINE TRACE (NEGATIVE); LEUKOCYTE ESTERASE ,URINE NEGATIVE (NEGATIVE); NITRITE,URINE NEGATIVE (NEGATIVE); PROTEIN,URINE DIPSTICK 1+ (NEGATIVE); URINE UROBILINOGEN 1 mg/dL (0.2 - 1)
[2020-09-16 00:25] LABS: BACTERIA,URINE FEW /HPF; EPITHELIAL CELLS,URINE FEW /LPF; RBC,URINE 0-5 /HPF (0-5); WBC,URINE (MAN) 0-5 /HPF (0-5)
[2020-09-16 00:26] LABS: MUCUS,URINE MANY (RARE)
[2020-09-16 00:45] LABS: CREATINE KINASE MB 1.9 ng/mL (0-5.0)
[2020-09-16] MEDS ORDERED: SODIUM CHLORIDE 0.9% 250ML 250 ML ONE (01:11)
[2020-09-16] MEDS: CEFTRIAXONE SOD 1 GRAM/0.9% SOD CHL 50ML BAG IV SCH ×2 (01:13→23:30)
[2020-09-16] MEDS: AZITHROMYCIN 500MG/SOD CHL 0.9% 250ML BAG IV SCH (01:43)
[2020-09-16] MEDS ORDERED: MYRBETRIQ50 MG PO (01:59)
[2020-09-16] MEDS ORDERED: FENOFIBRATE145 MG PO (01:59)
[2020-09-16] MEDS ORDERED: LISINOPRIL10 MG PO (01:59)
[2020-09-16] MEDS ORDERED: PANTOPRAZOLE SO40 MG PO (01:59)
[2020-09-16] MEDS ORDERED: ULTRAM 50MG50 MG PO (06:12)
[2020-09-16] MEDS ORDERED: LACTULOSE20 GM/30 M PO (06:23)
[2020-09-16 07:46] LABS: BASOPHILS # (AUTO) 0.1 (0.0-0.1); BASOPHILS % 1.7 % (0.0-1.0); EOSINOPHILS # (AUTO) 0.2 (0.0-0.4); EOSINOPHILS % 6.6 % (0.0-6.0); HEMATOCRIT 30.2 % (34.2-44.1); HEMOGLOBIN 8.6 g/dL (12.0-16.0); LYMPHOCYTES # (AUTO) 1.1 (1.0-3.2); LYMPHOCYTES % 32.4 % (18.0-39.1); MEAN CORPUSCULAR HEMOGLOBIN 29.2 pg (28-32); MEAN CORPUSCULAR HGB CONC 28.5 g/dL (31-35); MEAN CORPUSCULAR VOLUME 102.4 fL (81-99); MONOCYTES # (AUTO) 0.6 (0.2-0.8); MONOCYTES % 16.8 % (4.4-11.3); NEUTROPHILS # (AUTO) 1.5 (2.1-6.9); NEUTROPHILS % 42.5 % (38.7-80.0); PLATELET COUNT 132 x10e3/uL (140-360); RED BLOOD COUNT 2.95 x10e6/uL (3.6-5.1)
[2020-09-16 08:08] LABS: ANION GAP 10.9 mmol/L (8-16); CALCIUM 8.8 mg/dL (8.4-10.2); CREATININE, SERUM 1.29 mg/dL (0.57-1.11); POTASSIUM 3.9 mmol/L (3.5-5.1)
[2020-09-16 08:23] LABS: ANISOCYTOSIS MODERATE; HYPOCHROMASIA SLIGHT
[2020-09-16 08:24] LABS: PLATELET ESTIMATE SLIGHTLY DECREASED; PLATELET MORPHOLOGY COMMENT RARE EDTA CLUMPING
[2020-09-16 08:25] LABS: TEAR DROP CELLS FEW
[2020-09-16 08:26] LABS: POLYCHROMASIA FEW; RBC MORPHOLOGY COMMENT ABNORMAL
[2020-09-16] MEDS ORDERED: POLYETHYLENE GLYCOL 3350 17 GM PACK PO PRN (10:30)
[2020-09-16] MEDS ORDERED: TEMAZEPAM 7.5 MG CAP PO PRN (10:30)
[2020-09-16] MEDS ORDERED: ACETAMINOPHEN 325 MG TAB PO PRN (10:30)
[2020-09-16] MEDS ORDERED: ONDANSETRON HCL INJ 2MG/ML 2ML 2 MG/ML VIAL IV PRN (10:30)
[2020-09-16] MEDS ORDERED: HYDRALAZINE HCL 20 MG/ML VIAL IV PRN (10:30)
[2020-09-16] MEDS ORDERED: FUROSEMIDE 20 MG TAB PO PRN (10:45)
[2020-09-16] MEDS ORDERED: MECLIZINE HCL 12.5 MG TAB PO PRN (10:45)
[2020-09-16] MEDS ORDERED: TRAMADOL HCL 50 MG TAB PO PRN (10:45)
[2020-09-16] MEDS: APIXAB 2.5 MG TABLET PO SCH ×2 (11:15→21:00)
[2020-09-16 15:11] LABS: CREATINE KINASE MB 1.8 ng/mL (0-5.0)
[2020-09-16] MEDS ORDERED: FAMOTIDINE 20 MG/2 ML VIAL IV SCH (17:00)
[2020-09-16] MEDS: LACTULOSE SYRUP 20 GM/30 ML UDC PO SCH (17:43)
[2020-09-16] MEDS: DOCUSATE SODIUM 100 MG CAP PO SCH (17:43)
[2020-09-16] MEDS: RIFAXIMIN 550 MG TABLET PO SCH (17:43)
[2020-09-16] MEDS ORDERED: SODIUM CHLORIDE 0.45% 1,000 ML IV SCH (18:30)
[2020-09-16] MEDS ORDERED: FUROSEMIDE INJ 10 MG/ML 2 ML VIAL IV ONE (18:58)
[2020-09-16] MEDS: ACETYLCYSTEINE 200 MG/ML 4ML VIAL PO SCH (19:00)
[2020-09-16] MEDS ORDERED: SODIUM CHLORIDE 0.9% 50ML 50 ML ONE (19:22)
[2020-09-16] MEDS ORDERED: IOPAMIDOL 370 MG/ML 200 ML INFUS..BTL INJ ONE (19:22)
[2020-09-16] MEDS ORDERED: TEMAZEPAM 15 MG CAP PO PRN (21:00)
[2020-09-17] MEDS: AZITHROMYCIN 500MG/SOD CHL 0.9% 250ML BAG IV SCH
[2020-09-17 00:29] VITALS: BP 99/50
[2020-09-17] MEDS: ACETYLCYSTEINE 200 MG/ML 4ML VIAL PO SCH ×2 (01:00→06:00)
[2020-09-17 05:50] VITALS: BP 110/56
[2020-09-17] MEDS ORDERED: LEVOTHYROXINE SODIUM 88 MCG TAB PO SCH (06:00)
[2020-09-17 06:58] LABS: BASOPHILS # (AUTO) 0.1 (0.0-0.1); BASOPHILS % 1.4 % (0.0-1.0); EOSINOPHILS # (AUTO) 0.2 (0.0-0.4); EOSINOPHILS % 4.5 % (0.0-6.0); HEMATOCRIT 27.6 % (34.2-44.1); LYMPHOCYTES # (AUTO) 1.3 (1.0-3.2); LYMPHOCYTES % 30.7 % (18.0-39.1); MEAN CORPUSCULAR HEMOGLOBIN 29.7 pg (28-32); MEAN CORPUSCULAR VOLUME 102.6 fL (81-99); MONOCYTES # (AUTO) 0.9 (0.2-0.8); MONOCYTES % 20.7 % (4.4-11.3); NEUTROPHILS # (AUTO) 1.8 (2.1-6.9); NEUTROPHILS % 42.5 % (38.7-80.0); PLATELET COUNT 128 x10e3/uL (140-360); RED BLOOD COUNT 2.69 x10e6/uL (3.6-5.1); RED CELL DISTRIBUTION WIDTH 20.3 % (11.7-14.4)
[2020-09-17 07:08] LABS: INR 1.82
[2020-09-17 07:17] LABS: ALBUMIN 2.9 g/dL (3.5-5.0); ALBUMIN/GLOBULIN RATIO 0.9 (0.8-2.0); ANION GAP 9.4 mmol/L (8-16); CALCIUM 8.8 mg/dL (8.4-10.2); CREATININE, SERUM 1.54 mg/dL (0.57-1.11); POTASSIUM 4.4 mmol/L (3.5-5.1)
[2020-09-17] MEDS ORDERED: METFORMIN HCL 500 MG TAB PO SCH (08:00)
[2020-09-17 08:21] VITALS: BP 123/47
[2020-09-17 08:24] VITALS: BP 123/47
[2020-09-17] MEDS ORDERED: FUROSEMIDE 20 MG TAB PO SCH (08:30)
[2020-09-17 08:35] LABS: PHOSPHORUS 3.4 MG/DL (2.3-4.7)
[2020-09-17 08:51] LABS: FERRITIN 21.31 ng/mL (4.63-204.00)
[2020-09-17] MEDS ORDERED: PANTOPRAZOLE SOD 40 MG TABEC PO SCH (09:00)
[2020-09-17] MEDS ORDERED: LISINOPRIL 20 MG TAB PO SCH (09:00)
[2020-09-17] MEDS: APIXAB 2.5 MG TABLET PO SCH (09:00)
[2020-09-17] MEDS: LACTULOSE SYRUP 20 GM/30 ML UDC PO SCH (09:00)
[2020-09-17] MEDS: DOCUSATE SODIUM 100 MG CAP PO SCH (09:00)
[2020-09-17] MEDS: RIFAXIMIN 550 MG TABLET PO SCH (09:00)
[2020-09-17] MEDS ORDERED: FENOFIBRATE 145 MG TAB PO SCH (09:00)
[2020-09-17] MEDS ORDERED: LISINOPRIL 10 MG TAB PO SCH (09:00)
[2020-09-17] MEDS ORDERED: METOPROLOL SUCCINATE 25 MG TAB XL PO SCH (09:00)
[2020-09-17] MEDS ORDERED: (Mirabegron (Myrbetriq) 50 MG) PO SCH (09:00)
[2020-09-17] MEDS ORDERED: SPIRONOLACTONE 25 MG TAB PO SCH (09:00)
[2020-09-17 09:36] LABS: EOSINOPHILS % (MANUAL) 9 % (0-7); LYMPHOCYTES % (MANUAL) 30 % (19-48); MONOCYTES % (MANUAL) 15 % (3.4-9.0); NEUTROPHILS % (MANUAL) 44 % (40-74)
[2020-09-17 09:37] LABS: ANISOCYTOSIS MARKED; TARGET CELLS FEW
[2020-09-17 09:38] LABS: OVALOCYTES FEW; RBC MORPHOLOGY COMMENT ABNORMAL; TEAR DROP CELLS FEW
[2020-09-17 09:39] LABS: PLATELET ESTIMATE SLIGHTLY DECREASED; PLATELET MORPHOLOGY COMMENT NORMAL
[2020-09-17] MEDS ORDERED: DOCUSATE SODIU100 MG PO (10:50)
[2020-09-17] MEDS ORDERED: FUROSEMIDE40 MG PO (10:50)
[2020-09-17] MEDS ORDERED: ASCORBIC ACID500 MG PO (10:50)
[2020-09-17] MEDS ORDERED: FERROUS SULFAT325 M1 PO (10:50)
[2020-09-17] MEDS ORDERED: LACTULOSE20 GM/30 M PO (11:07)
[2020-09-17 12:12] VITALS: BP 106/73
[2020-09-17] MEDS ORDERED: ONDANSETRON HCL 4 MG ORAL DISINTEGRATING TAB PO PRN (12:30)
[2020-09-17] MEDS ORDERED: AZITHROMYCIN 250 MG TAB PO SCH (23:30)
== END 2020-09-17 16:41 | disposition home or self-care (01) ==
LOC: ER 21:43 → ERHOLD 23:45 → MED/SURG3 09-16 00:59
PROVIDERS: ADMIT Internal Medicine; ATTEND Internal Medicine
DX: K74.60 Unspecified cirrhosis of liver (principal); R18.8 Other ascites; I13.0 Hypertensive heart and chronic kidney disease with heart failure and stage 1 through stage 4 chronic kidney disease, or unspecified chronic kidney disease; I50.33 Acute on chronic diastolic (congestive) heart failure; N18.30 Chronic kidney disease, stage 3 unspecified; E11.22 Type 2 diabetes mellitus with diabetic chronic kidney disease; Z79.899 Other long term (current) drug therapy; Z79.4 Long term (current) use of insulin; I48.20 Chronic atrial fibrillation, unspecified; Z79.01 Long term (current) use of anticoagulants; H40.9 Unspecified glaucoma; N32.81 Overactive bladder; H91.92 Unspecified hearing loss, left ear; E78.5 Hyperlipidemia, unspecified; E03.9 Hypothyroidism, unspecified; D50.0 Iron deficiency anemia secondary to blood loss (chronic); Z85.42 Personal history of malignant neoplasm of other parts of uterus; K72.90 Hepatic failure, unspecified without coma; K44.9 Diaphragmatic hernia without obstruction or gangrene; Z20.828 Contact with and (suspected) exposure to other viral communicable diseases; K55.20 Angiodysplasia of colon without hemorrhage; I25.10 Atherosclerotic heart disease of native coronary artery without angina pectoris; D61.818 Other pancytopenia; E66.01 Morbid (severe) obesity due to excess calories; Z68.41 Body mass index [BMI] 40.0-44.9, adult
CPT/HCPCS: 36415 ×3; 71045 ×2; 71260; 74177; 76700; 78215; 80048; 80053 ×2; 81001; 82140; 82270; 82550 ×2; 82553 ×2; 82607; 82728; 82746; 82948 ×2; 83540; 83735; 83880; 84100; 84466; 84484 ×2; 85025 ×3; 85045; 85610; 86850; 86900; 87040; 93005; 93306; 97116; 97139; 97161; 97530 ×2; 99284; A9541; G0378 ×3; J0456; J0696; J1940; J7050; Q9967; S0164; U0002

== ENCOUNTER 2020-09-25 10:34 | Inpatient (IN) | payer MEDICARE ==
[~2020-09-25] VITALS: Ht 154.9 cm; Wt 104.3 kg
[~2020-09-25 10:34] MED LIST changes: +DOCUSATE SODIU100 MG PO; +FERROUS SULFAT325 M1 PO; +FUROSEMIDE40 MG PO; +MYRBETRIQ50 MG PO
[2020-09-25 11:35] LABS: BASOPHILS % 1.2 % (0.0-1.0); EOSINOPHILS # (AUTO) 0.2 (0.0-0.4); EOSINOPHILS % 6.9 % (0.0-6.0); HEMATOCRIT 24.9 % (34.2-44.1); HEMOGLOBIN 7.3 g/dL (12.0-16.0); LYMPHOCYTES # (AUTO) 0.8 (1.0-3.2); LYMPHOCYTES % 24.8 % (18.0-39.1); MEAN CORPUSCULAR HEMOGLOBIN 29.6 pg (28-32); MEAN CORPUSCULAR HGB CONC 29.3 g/dL (31-35); MEAN CORPUSCULAR VOLUME 100.8 fL (81-99); MONOCYTES # (AUTO) 0.5 (0.2-0.8); MONOCYTES % 15.4 % (4.4-11.3); NEUTROPHILS # (AUTO) 1.7 (2.1-6.9); NEUTROPHILS % 50.8 % (38.7-80.0); PLATELET COUNT 152 x10e3/uL (140-360); RED BLOOD COUNT 2.47 x10e6/uL (3.6-5.1); RED CELL DISTRIBUTION WIDTH 20.6 % (11.7-14.4)
[2020-09-25 12:00] LABS: ALBUMIN 3.1 g/dL (3.5-5.0); ALBUMIN/GLOBULIN RATIO 0.8 (0.8-2.0); CALCIUM 8.6 mg/dL (8.4-10.2); CREATININE, SERUM 2.77 mg/dL (0.57-1.11)
[2020-09-25 12:22] LABS: HYPOCHROMASIA SLIGHT; RBC MORPHOLOGY COMMENT ABNORMAL
[2020-09-25 12:23] LABS: ANISOCYTOSIS SLIGHT; PLATELET ESTIMATE SLIGHTLY INCREASED; PLATELET MORPHOLOGY COMMENT NORMAL
[2020-09-25] MEDS: FUROSEMIDE INJ 10 MG/ML 4 ML VIAL IV ONE ×2 (13:06→13:15)
[2020-09-25] MEDS: FUROSEMIDE INJ 10 MG/ML 4 ML VIAL IV SCH (15:25)
[2020-09-25 17:14] VITALS: BP 104/55
[2020-09-25] MEDS ORDERED: ONDANSETRON HCL INJ 2MG/ML 2ML 2 MG/ML VIAL IV PRN (18:15)
[2020-09-25] MEDS ORDERED: POLYETHYLENE GLYCOL 3350 17 GM PACK PO PRN (18:15)
[2020-09-25] MEDS ORDERED: TEMAZEPAM 15 MG CAP PO PRN (18:15)
[2020-09-25] MEDS ORDERED: HYDRALAZINE HCL 20 MG/ML VIAL IV PRN (18:15)
[2020-09-25] MEDS ORDERED: ACETAMINOPHEN 325 MG TAB PO PRN (18:15)
[2020-09-25 19:00] VITALS: BP 90/43
[2020-09-25] MEDS ORDERED: MECLIZINE HCL 12.5 MG TAB PO PRN (19:00)
[2020-09-25 21:53] VITALS: BP 90/43
[2020-09-26] VITALS (8 sets, daily range): BP systolic 81–134; BP diastolic 45–91
[2020-09-26] MEDS: LEVOTHYROXINE SODIUM 88 MCG TAB PO SCH (05:27)
[2020-09-26 06:03] LABS: ANION GAP 11.3 mmol/L (8-16); CALCIUM 8.3 mg/dL (8.4-10.2); CREATININE, SERUM 2.96 mg/dL (0.57-1.11); POTASSIUM 5.3 mmol/L (3.5-5.1)
[2020-09-26 06:28] LABS: BASOPHILS % 1.1 % (0.0-1.0); EOSINOPHILS # (AUTO) 0.2 (0.0-0.4); LYMPHOCYTES # (AUTO) 0.9 (1.0-3.2); LYMPHOCYTES % 30.5 % (18.0-39.1); MEAN CORPUSCULAR HGB CONC 29.3 g/dL (31-35); MEAN CORPUSCULAR VOLUME 102.4 fL (81-99); MONOCYTES # (AUTO) 0.6 (0.2-0.8); MONOCYTES % 19.3 % (4.4-11.3); NEUTROPHILS # (AUTO) 1.2 (2.1-6.9); NEUTROPHILS % 42.7 % (38.7-80.0); PLATELET COUNT 107 x10e3/uL (140-360); RED CELL DISTRIBUTION WIDTH 20.3 % (11.7-14.4)
[2020-09-26 06:32] LABS: HEMATOCRIT 21.5 % (34.2-44.1)
[2020-09-26 06:34] LABS: HEMOGLOBIN 6.3 g/dL (12.0-16.0)
[2020-09-26 06:35] LABS: MAGNESIUM 2.4 MG/DL (1.3-2.1); PHOSPHORUS 4.9 MG/DL (2.3-4.7)
[2020-09-26] MEDS ORDERED: SODIUM CHLORIDE 0.9% 250ML 250 ML IV SCH (06:45)
[2020-09-26] MEDS ORDERED: METFORMIN HCL 500 MG TAB PO SCH (08:00)
[2020-09-26] MEDS: FERROUS SULFATE 325 MG TAB PO SCH (08:16)
[2020-09-26] MEDS: LACTULOSE SYRUP 20 GM/30 ML UDC PO SCH (08:16)
[2020-09-26] MEDS: FENOFIBRATE 160 MG TAB PO SCH (08:16)
[2020-09-26] MEDS: PANTOPRAZOLE SOD 40 MG TABEC PO SCH (08:16)
[2020-09-26] MEDS: ASCORBIC ACID 500 MG TAB PO SCH (08:17)
[2020-09-26] MEDS: DOCUSATE SODIUM 100 MG CAP PO SCH (08:17)
[2020-09-26] MEDS: FAMOTIDINE 20 MG TAB PO SCH ×2 (08:17→17:45)
[2020-09-26] MEDS: FUROSEMIDE INJ 10 MG/ML 4 ML VIAL IV SCH (08:17)
[2020-09-26] MEDS: NON-FORMULARY MEDICATION (Mirabegron (Myrbetriq) 1 TAB) PO SCH (09:00)
[2020-09-26] MEDS ORDERED: DOCUSATE SODIUM 100 MG CAP PO SCH (09:00)
[2020-09-26 09:10] LABS: ANISOCYTOSIS SLIGHT; HYPOCHROMASIA MODERATE; POIKILOCYTOSIS SLIGHT
[2020-09-26] MEDS ORDERED: SOD POLYSTYRENE SULFONATE SUSP 15 GM/60 ML BTL PO ONE (09:10)
[2020-09-26 09:11] LABS: MICROCYTOSIS SLIGHT; PLATELET ESTIMATE MODERATELY DECREASED; RBC MORPHOLOGY COMMENT ABNORMAL
[2020-09-26 09:12] LABS: PLATELET MORPHOLOGY COMMENT NORMAL
[2020-09-26] MEDS ORDERED: SODIUM CHLORIDE 0.9% 250ML 250 ML ONE ×2 (10:01→16:19)
[2020-09-26] MEDS ORDERED: NON-FORMULARY MEDICATION SQ SCH (14:15)
[2020-09-26] MEDS ORDERED: ONDANSETRON HCL 4 MG ORAL DISINTEGRATING TAB PO PRN (14:15)
[2020-09-26] MEDS: EPOETIN ALFA-EPBX 10,000 UNIT/ML VIAL SC SCH (16:10)
[2020-09-26 16:18] LABS: INR 1.46; PROTHROMBIN TIME 18.5 seconds (11.9-14.5)
[2020-09-26 16:47] LABS: FERRITIN 29.59 ng/mL (4.63-204.00)
[2020-09-26] MEDS ORDERED: LACTULOSE SYRUP 20 GM/30 ML UDC PO ONE (17:00)
[2020-09-27] VITALS (8 sets, daily range): BP systolic 90–117; BP diastolic 40–60
[2020-09-27] MEDS: LEVOTHYROXINE SODIUM 88 MCG TAB PO SCH (05:04)
[2020-09-27 06:11] LABS: BASOPHILS % 1.1 % (0.0-1.0); EOSINOPHILS # (AUTO) 0.2 (0.0-0.4); EOSINOPHILS % 4.6 % (0.0-6.0); HEMATOCRIT 26.2 % (34.2-44.1); LYMPHOCYTES # (AUTO) 0.8 (1.0-3.2); LYMPHOCYTES % 22.8 % (18.0-39.1); MEAN CORPUSCULAR HEMOGLOBIN 29.1 pg (28-32); MEAN CORPUSCULAR HGB CONC 30.5 g/dL (31-35); MEAN CORPUSCULAR VOLUME 95.3 fL (81-99); MONOCYTES # (AUTO) 0.7 (0.2-0.8); MONOCYTES % 20.2 % (4.4-11.3); NEUTROPHILS # (AUTO) 1.8 (2.1-6.9); NEUTROPHILS % 50.7 % (38.7-80.0); PLATELET COUNT 97 x10e3/uL (140-360); RED BLOOD COUNT 2.75 x10e6/uL (3.6-5.1); RED CELL DISTRIBUTION WIDTH 21.2 % (11.7-14.4)
[2020-09-27 06:33] LABS: ANION GAP 10.6 mmol/L (8-16); CALCIUM 8.3 mg/dL (8.4-10.2); CREATININE, SERUM 3.24 mg/dL (0.57-1.11); MAGNESIUM 2.4 MG/DL (1.3-2.1); PHOSPHORUS 4.3 MG/DL (2.3-4.7); POTASSIUM 4.6 mmol/L (3.5-5.1)
[2020-09-27] MEDS: TRAMADOL HCL 50 MG TAB PO PRN (07:40)
[2020-09-27] MEDS: FAMOTIDINE 20 MG TAB PO SCH ×2 (07:50→16:39)
[2020-09-27 08:54] LABS: EOSINOPHILS % (MANUAL) 8 % (0-7); LYMPHOCYTES % (MANUAL) 25 % (19-48); METAMYELOCYTES % (MANUAL) 2 % (0-0); MONOCYTES % (MANUAL) 11 % (3.4-9.0); NEUTROPHILS % (MANUAL) 50 % (40-74); PROMYELOCYTES % (MANUAL) 4 % (0-0)
[2020-09-27 08:55] LABS: HYPOCHROMASIA MODERATE
[2020-09-27 08:57] LABS: ANISOCYTOSIS SLIGHT
[2020-09-27 08:58] LABS: ELLIPTOCYTE, RBC SLIGHT; PLATELET ESTIMATE MARKEDLY DECREASED; PLATELET MORPHOLOGY COMMENT NORMAL; RBC MORPHOLOGY COMMENT ABNORMAL
[2020-09-27] MEDS: FENOFIBRATE 160 MG TAB PO SCH (09:00)
[2020-09-27] MEDS: NON-FORMULARY MEDICATION (Mirabegron (Myrbetriq) 1 TAB) PO SCH (09:00)
[2020-09-27] MEDS: FERROUS SULFATE 325 MG TAB PO SCH (09:14)
[2020-09-27] MEDS: DOCUSATE SODIUM 100 MG CAP PO SCH (09:14)
[2020-09-27] MEDS: ASCORBIC ACID 500 MG TAB PO SCH (09:15)
[2020-09-27] MEDS: PANTOPRAZOLE SOD 40 MG TABEC PO SCH (09:15)
[2020-09-27] MEDS: LACTULOSE SYRUP 20 GM/30 ML UDC PO SCH (10:30)
[2020-09-27 15:04] LABS: CREATININE,URINE RANDOM 81.33 mg/dL (47-110); TOTAL PROTEIN, URINE 32.1 mg/dL (1-14)
[2020-09-27] MEDS: EPOETIN ALFA-EPBX 10,000 UNIT/ML VIAL SC SCH (15:30)
[2020-09-27 16:07] LABS: TOTAL PROTEIN 24HR, URINE 192.6 mg/24hr (50-100)
[2020-09-27] MEDS: FLUTICASONE PROPIONATE NASAL SPRAY NS SCH (18:30)
[2020-09-28] VITALS (7 sets, daily range): BP systolic 107–129; BP diastolic 41–66
[2020-09-28] MEDS: LEVOTHYROXINE SODIUM 88 MCG TAB PO SCH (05:51)
[2020-09-28 06:47] LABS: BASOPHILS % 0.9 % (0.0-1.0); EOSINOPHILS # (AUTO) 0.2 (0.0-0.4); EOSINOPHILS % 5.4 % (0.0-6.0); HEMATOCRIT 28.4 % (34.2-44.1); HEMOGLOBIN 8.7 g/dL (12.0-16.0); LYMPHOCYTES # (AUTO) 0.8 (1.0-3.2); LYMPHOCYTES % 23.6 % (18.0-39.1); MEAN CORPUSCULAR HEMOGLOBIN 29.4 pg (28-32); MEAN CORPUSCULAR HGB CONC 30.6 g/dL (31-35); MEAN CORPUSCULAR VOLUME 95.9 fL (81-99); MONOCYTES # (AUTO) 0.7 (0.2-0.8); MONOCYTES % 21.1 % (4.4-11.3); NEUTROPHILS # (AUTO) 1.7 (2.1-6.9); NEUTROPHILS % 47.9 % (38.7-80.0); PLATELET COUNT 104 x10e3/uL (140-360); RED BLOOD COUNT 2.96 x10e6/uL (3.6-5.1); RED CELL DISTRIBUTION WIDTH 21.4 % (11.7-14.4)
[2020-09-28 07:08] LABS: POTASSIUM 4.5 mmol/L (3.5-5.1)
[2020-09-28 07:09] LABS: ANION GAP 10.5 mmol/L (8-16); CALCIUM 8.7 mg/dL (8.4-10.2); CREATININE, SERUM 2.87 mg/dL (0.57-1.11)
[2020-09-28] MEDS: FAMOTIDINE 20 MG TAB PO SCH ×2 (08:00→16:30)
[2020-09-28] MEDS: ASCORBIC ACID 500 MG TAB PO SCH (08:57)
[2020-09-28] MEDS: PANTOPRAZOLE SOD 40 MG TABEC PO SCH (08:57)
[2020-09-28] MEDS: DOCUSATE SODIUM 100 MG CAP PO SCH (08:57)
[2020-09-28] MEDS: FLUTICASONE PROPIONATE NASAL SPRAY NS SCH ×2 (08:57→17:10)
[2020-09-28] MEDS: FERROUS SULFATE 325 MG TAB PO SCH (08:57)
[2020-09-28] MEDS: NON-FORMULARY MEDICATION (Mirabegron (Myrbetriq) 1 TAB) PO SCH (09:00)
[2020-09-28] MEDS: FENOFIBRATE 160 MG TAB PO SCH (09:00)
[2020-09-28] MEDS: LACTULOSE SYRUP 20 GM/30 ML UDC PO SCH (10:05)
[2020-09-28 22:22] LABS: CLARITY,URINE CLEAR (CLEAR); COLOR,URINE YELLOW (YELLOW); KETONES,URINE NEGATIVE (NEGATIVE); LEUKOCYTE ESTERASE ,URINE TRACE (NEGATIVE); NITRITE,URINE NEGATIVE (NEGATIVE); PROTEIN,URINE DIPSTICK 1+ (NEGATIVE); URINE UROBILINOGEN 1 mg/dL (0.2 - 1)
[2020-09-28 22:25] LABS: BACTERIA,URINE MANY /HPF; EPITHELIAL CELLS,URINE FEW /LPF
[2020-09-28 22:26] LABS: RENAL EPITHELIAL CELLS,URINE FEW; YEAST,URINE MANY
[2020-09-29] VITALS (8 sets, daily range): BP systolic 99–139; BP diastolic 57–87
[2020-09-29] MEDS: LEVOTHYROXINE SODIUM 88 MCG TAB PO SCH (05:36)
[2020-09-29 06:39] LABS: BASOPHILS % 1.1 % (0.0-1.0); EOSINOPHILS # (AUTO) 0.3 (0.0-0.4); EOSINOPHILS % 6.9 % (0.0-6.0); HEMATOCRIT 28.8 % (34.2-44.1); HEMOGLOBIN 8.8 g/dL (12.0-16.0); LYMPHOCYTES # (AUTO) 0.8 (1.0-3.2); LYMPHOCYTES % 21.5 % (18.0-39.1); MEAN CORPUSCULAR HEMOGLOBIN 30.3 pg (28-32); MEAN CORPUSCULAR HGB CONC 30.6 g/dL (31-35); MEAN CORPUSCULAR VOLUME 99.3 fL (81-99); MONOCYTES # (AUTO) 0.8 (0.2-0.8); MONOCYTES % 20.5 % (4.4-11.3); NEUTROPHILS # (AUTO) 1.8 (2.1-6.9); NEUTROPHILS % 48.1 % (38.7-80.0); PLATELET COUNT 98 x10e3/uL (140-360); RED CELL DISTRIBUTION WIDTH 21.7 % (11.7-14.4)
[2020-09-29 06:57] LABS: ANION GAP 9.7 mmol/L (8-16); CALCIUM 8.8 mg/dL (8.4-10.2); CREATININE, SERUM 2.52 mg/dL (0.57-1.11); POTASSIUM 4.7 mmol/L (3.5-5.1)
[2020-09-29] MEDS: FAMOTIDINE 20 MG TAB PO SCH ×2 (07:30→16:30)
[2020-09-29] MEDS: NON-FORMULARY MEDICATION (Mirabegron (Myrbetriq) 1 TAB) PO SCH (09:00)
[2020-09-29] MEDS: FENOFIBRATE 160 MG TAB PO SCH (09:00)
[2020-09-29] MEDS: FERROUS SULFATE 325 MG TAB PO SCH (09:01)
[2020-09-29] MEDS: ASCORBIC ACID 500 MG TAB PO SCH (09:01)
[2020-09-29] MEDS: PANTOPRAZOLE SOD 40 MG TABEC PO SCH (09:01)
[2020-09-29] MEDS: FLUTICASONE PROPIONATE NASAL SPRAY NS SCH ×2 (09:01→17:37)
[2020-09-29] MEDS: DOCUSATE SODIUM 100 MG CAP PO SCH (09:01)
[2020-09-29 09:06] LABS: EOSINOPHILS % (MANUAL) 5 % (0-7); LYMPHOCYTES % (MANUAL) 28 % (19-48); MONOCYTES % (MANUAL) 12 % (3.4-9.0); NEUTROPHILS % (MANUAL) 52 % (40-74); PROMYELOCYTES % (MANUAL) 2 % (0-0)
[2020-09-29 09:08] LABS: ANISOCYTOSIS MODERATE; ELLIPTOCYTE, RBC SLIGHT; PLATELET ESTIMATE MARKEDLY DECREASED; PLATELET MORPHOLOGY COMMENT NORMAL; RBC MORPHOLOGY COMMENT ABNORMAL
[2020-09-29] MEDS: LACTULOSE SYRUP 20 GM/30 ML UDC PO SCH ×4 (10:45→20:45)
[2020-09-29] MEDS: FUROSEMIDE 40 MG TAB PO SCH (17:37)
[2020-09-30 00:59] VITALS: BP 104/52
[2020-09-30 04:20] VITALS: BP 128/70
[2020-09-30 04:20] LABS: BASOPHILS % 0.8 % (0.0-1.0); EOSINOPHILS # (AUTO) 0.2 (0.0-0.4); EOSINOPHILS % 4.9 % (0.0-6.0); HEMATOCRIT 28.5 % (34.2-44.1); HEMOGLOBIN 8.9 g/dL (12.0-16.0); LYMPHOCYTES % 24.7 % (18.0-39.1); MEAN CORPUSCULAR HEMOGLOBIN 30.3 pg (28-32); MEAN CORPUSCULAR HGB CONC 31.2 g/dL (31-35); MEAN CORPUSCULAR VOLUME 96.9 fL (81-99); MONOCYTES # (AUTO) 0.8 (0.2-0.8); MONOCYTES % 21.4 % (4.4-11.3); NEUTROPHILS # (AUTO) 1.8 (2.1-6.9); NEUTROPHILS % 46.9 % (38.7-80.0); PLATELET COUNT 101 x10e3/uL (140-360); RED BLOOD COUNT 2.94 x10e6/uL (3.6-5.1); RED CELL DISTRIBUTION WIDTH 21.7 % (11.7-14.4)
[2020-09-30] MEDS: TRAMADOL HCL 50 MG TAB PO PRN (04:21)
[2020-09-30 04:38] LABS: ANION GAP 13.7 mmol/L (8-16); CALCIUM 8.2 mg/dL (8.4-10.2)
[2020-09-30 04:48] LABS: POTASSIUM 3.7 mmol/L (3.5-5.1)
[2020-09-30] MEDS: LEVOTHYROXINE SODIUM 88 MCG TAB PO SCH (05:09)
[2020-09-30] MEDS ORDERED: SODIUM CHLORIDE 0.9% 1000ML 1,000 ML IV ONE (06:45)
[2020-09-30 08:23] VITALS: BP 112/48
[2020-09-30] MEDS: FLUTICASONE PROPIONATE NASAL SPRAY NS SCH ×2 (08:56→17:03)
[2020-09-30] MEDS: FAMOTIDINE 20 MG TAB PO SCH ×2 (08:56→17:03)
[2020-09-30] MEDS: NON-FORMULARY MEDICATION (Mirabegron (Myrbetriq) 1 TAB) PO SCH (08:57)
[2020-09-30] MEDS: DOCUSATE SODIUM 100 MG CAP PO SCH (08:57)
[2020-09-30] MEDS: FERROUS SULFATE 325 MG TAB PO SCH (08:57)
[2020-09-30] MEDS: FENOFIBRATE 160 MG TAB PO SCH (08:57)
[2020-09-30] MEDS: LACTULOSE SYRUP 20 GM/30 ML UDC PO SCH ×2 (08:57→14:00)
[2020-09-30] MEDS: FUROSEMIDE 40 MG TAB PO SCH ×2 (08:58→17:03)
[2020-09-30] MEDS: PANTOPRAZOLE SOD 40 MG TABEC PO SCH (08:58)
[2020-09-30] MEDS: ASCORBIC ACID 500 MG TAB PO SCH (08:58)
[2020-09-30 09:00] VITALS: BP 112/48
[2020-09-30] MEDS ORDERED: POTASSIUM CHLORIDE 10MEQ EA PO SCH (09:00)
[2020-09-30] MEDS ORDERED: LACTULOSE20 GM/30 M PO (11:49)
[2020-09-30] MEDS ORDERED: Fluticasone Propionate NS (11:49)
[2020-09-30] MEDS ORDERED: RETACRIT10000 UNIT SC (11:49)
[2020-09-30] MEDS ORDERED: K DUR10 MEQ PO (11:49)
[2020-09-30] MEDS ORDERED: FUROSEMIDE40 MG PO (11:49)
[2020-09-30] MEDS ORDERED: POTASSIUM PHOSPHATE 15 MM in SODIUM CHLORIDE 0.9% 250ML 250 ML IV ONE (12:15)
[2020-09-30] MEDS: EPOETIN ALFA-EPBX 10,000 UNIT/ML VIAL SC SCH (14:30)
[2020-09-30 16:00] VITALS: BP 114/68
== END 2020-09-30 18:58 | disposition home health service (06) | DRG 292 ==
LOC: ER 10:57 → ERHOLD 12:56 → MED/SURG3 16:56
PROVIDERS: ADMIT Internal Medicine; ATTEND Internal Medicine
PROC: 30233N1 Transfusion of Nonautologous Red Blood Cells into Peripheral Vein, Percutaneous Approach (ICD-10-PCS; principal; 2020-09-26)
DX: I13.0 Hypertensive heart and chronic kidney disease with heart failure and stage 1 through stage 4 chronic kidney disease, or unspecified chronic kidney disease (principal); N17.9 Acute kidney failure, unspecified; R18.8 Other ascites; I50.32 Chronic diastolic (congestive) heart failure; Z68.41 Body mass index [BMI] 40.0-44.9, adult; I48.20 Chronic atrial fibrillation, unspecified; D61.818 Other pancytopenia; N18.4 Chronic kidney disease, stage 4 (severe); E11.22 Type 2 diabetes mellitus with diabetic chronic kidney disease; E03.9 Hypothyroidism, unspecified; K74.60 Unspecified cirrhosis of liver; D64.9 Anemia, unspecified; E66.01 Morbid (severe) obesity due to excess calories; E78.5 Hyperlipidemia, unspecified; Z85.42 Personal history of malignant neoplasm of other parts of uterus; Z66 Do not resuscitate; D46.9 Myelodysplastic syndrome, unspecified; Z20.828 Contact with and (suspected) exposure to other viral communicable diseases; Z95.810 Presence of automatic (implantable) cardiac defibrillator; Z87.440 Personal history of urinary (tract) infections; Z83.3 Family history of diabetes mellitus; Z82.3 Family history of stroke; Z84.89 Family history of other specified conditions; N26.1 Atrophy of kidney (terminal); E83.39 Other disorders of phosphorus metabolism; D63.1 Anemia in chronic kidney disease; D50.9 Iron deficiency anemia, unspecified
CPT/HCPCS: 36415; 71045; 76770; 78278; 80048; 80053; 81001; 81050; 82040; 82140; 82270; 82575; 82607; 82728; 82746; 82948; 83540; 83615; 83735; 83880; 84100; 84156; 84165; 84466; 84484; 85025; 85045; 85610; 86021; 86039; 86160; 86225; 86850; 86900; 86920; 93005; 93971; 97139; 99284; A9512; J1940; J7030; J7050; P9016; Q0162; U0002

== ENCOUNTER → 2020-10-24 | Day surgery (SDC) | payer MEDICARE ==
[2020-10-22 08:28] LABS: BASOPHILS # (AUTO) 0.1 (0.0-0.1); EOSINOPHILS # (AUTO) 0.2 (0.0-0.4); EOSINOPHILS % 3.8 % (0.0-6.0); HEMATOCRIT 39.1 % (34.2-44.1); HEMOGLOBIN 12.1 g/dL (12.0-16.0); LYMPHOCYTES # (AUTO) 1.2 (1.0-3.2); MEAN CORPUSCULAR HEMOGLOBIN 30.3 pg (28-32); MEAN CORPUSCULAR HGB CONC 30.9 g/dL (31-35); MONOCYTES # (AUTO) 0.6 (0.2-0.8); MONOCYTES % 14.1 % (4.4-11.3); NEUTROPHILS % 49.8 % (38.7-80.0); PLATELET COUNT 122 x10e3/uL (140-360); RED BLOOD COUNT 3.99 x10e6/uL (3.6-5.1); RED CELL DISTRIBUTION WIDTH 21.8 % (11.7-14.4)
[2020-10-22 08:49] LABS: INR 1.35; PROTHROMBIN TIME 17.6 seconds (11.9-14.5)
[2020-10-22 08:50] LABS: PARTIAL THROMBOPLASTIN TIME 38.4 seconds (23.8-35.5)
[2020-10-22 08:59] LABS: ALBUMIN 3.1 g/dL (3.5-5.0); ALBUMIN/GLOBULIN RATIO 0.8 (0.8-2.0); ANION GAP 15.1 mmol/L (8-16); CALCIUM 9.4 mg/dL (8.4-10.2); CREATININE, SERUM 1.81 mg/dL (0.57-1.11); POTASSIUM 4.1 mmol/L (3.5-5.1)
[~2020-10-24] MED LIST changes: +ASPIRIN81 MG PO; +GLIPIZIDE5 MG PO; +K DUR10 MEQ PO; +MIDAZOLAM HCL 2 MG/2 ML VIAL ONE; +POTASSIUM CHLO10 ME1 PO; +POTASSIUM CHLO20 ME1 PO; +PROPOFOL IV EMULSION 10 MG/ML 20 ML VIAL ONE; +RETACRIT10000 UNIT SC
[2020-10-24 12:35] VITALS: BP 129/77
== END | disposition home or self-care (01) ==
LOC: OR 08:51
PROVIDERS: ATTEND Internal Medicine Gastroenterology
DX: K29.50 Unspecified chronic gastritis without bleeding (principal); K74.60 Unspecified cirrhosis of liver; I85.10 Secondary esophageal varices without bleeding; R19.5 Other fecal abnormalities; D64.9 Anemia, unspecified; E03.9 Hypothyroidism, unspecified; I25.10 Atherosclerotic heart disease of native coronary artery without angina pectoris; E11.22 Type 2 diabetes mellitus with diabetic chronic kidney disease; I13.0 Hypertensive heart and chronic kidney disease with heart failure and stage 1 through stage 4 chronic kidney disease, or unspecified chronic kidney disease; N18.9 Chronic kidney disease, unspecified; I50.9 Heart failure, unspecified; I48.91 Unspecified atrial fibrillation; Z01.810 Encounter for preprocedural cardiovascular examination; Z01.812 Encounter for preprocedural laboratory examination; Z20.822 Contact with and (suspected) exposure to COVID-19; I45.10 Unspecified right bundle-branch block; Z79.82 Long term (current) use of aspirin; Z79.84 Long term (current) use of oral hypoglycemic drugs
CPT/HCPCS: 36415 ×2; 43239; 43450; 80053; 82948; 85025; 85610; 85730; 93005; J2250; J2704; U0002

== ENCOUNTER 2020-10-27 10:47 | Observation (INO) | payer MEDICARE ==
[~2020-10-27] VITALS: Ht 154.9 cm; Wt 82.6 kg
[~2020-10-27 10:47] MED LIST changes: -ASPIRIN81 MG PO; -GLIPIZIDE5 MG PO; -MIDAZOLAM HCL 2 MG/2 ML VIAL ONE; -POTASSIUM CHLO10 ME1 PO; -PROPOFOL IV EMULSION 10 MG/ML 20 ML VIAL ONE
[2020-10-27] MEDS ORDERED: ASPIRIN81 MG PO (11:00)
[2020-10-27] MEDS ORDERED: METOPROLOL SUCC25 MG PO (11:00)
[2020-10-27] MEDS ORDERED: POTASSIUM CHLO10 ME1 PO (11:00)
[2020-10-27] MEDS ORDERED: LACTULOSE20 GM/30 M PO (11:00)
[2020-10-27] MEDS ORDERED: GLIPIZIDE5 MG PO (11:00)
[2020-10-27] MEDS ORDERED: DEXTROSE 5% 1,000 ML IV SCH (11:15)
[2020-10-27] MEDS: OCTREOTIDE ACETATE 0.05 MG/ML AMP SQ SCH ×3 (11:27→17:56)
[2020-10-27 11:31] LABS: BASOPHILS % 1.1 % (0.0-1.0); EOSINOPHILS # (AUTO) 0.1 (0.0-0.4); EOSINOPHILS % 2.2 % (0.0-6.0); HEMATOCRIT 37.3 % (34.2-44.1); HEMOGLOBIN 11.7 g/dL (12.0-16.0); LYMPHOCYTES # (AUTO) 0.5 (1.0-3.2); LYMPHOCYTES % 13.2 % (18.0-39.1); MEAN CORPUSCULAR HEMOGLOBIN 31.3 pg (28-32); MEAN CORPUSCULAR HGB CONC 31.4 g/dL (31-35); MEAN CORPUSCULAR VOLUME 99.7 fL (81-99); MONOCYTES # (AUTO) 0.4 (0.2-0.8); MONOCYTES % 11.8 % (4.4-11.3); NEUTROPHILS # (AUTO) 2.5 (2.1-6.9); NEUTROPHILS % 71.1 % (38.7-80.0); PLATELET COUNT 110 x10e3/uL (140-360); RED BLOOD COUNT 3.74 x10e6/uL (3.6-5.1); RED CELL DISTRIBUTION WIDTH 21.5 % (11.7-14.4)
[2020-10-27 12:00] LABS: ALBUMIN/GLOBULIN RATIO 0.8 (0.8-2.0); ANION GAP 10.8 mmol/L (8-16); CALCIUM 8.7 mg/dL (8.4-10.2); CREATININE, SERUM 1.63 mg/dL (0.57-1.11); POTASSIUM 3.8 mmol/L (3.5-5.1)
[2020-10-27 12:01] LABS: PARTIAL THROMBOPLASTIN TIME 36.1 seconds (23.8-35.5)
[2020-10-27 12:09] LABS: CREATINE KINASE MB 1.7 ng/mL (0-5.0)
[2020-10-27 12:13] LABS: INR 1.33; PROTHROMBIN TIME 17.4 seconds (11.9-14.5)
[2020-10-27] MEDS ORDERED: ONDANSETRON HCL INJ 2MG/ML 2ML 2 MG/ML VIAL IV PRN (12:45)
[2020-10-27 15:22] VITALS: BP 135/87
[2020-10-27 15:25] VITALS: BP 135/87
[2020-10-27] MEDS ORDERED: HYDRALAZINE HCL 20 MG/ML VIAL IV PRN (16:30)
[2020-10-27] MEDS ORDERED: POLYETHYLENE GLYCOL 3350 17 GM PACK PO PRN (16:30)
[2020-10-27] MEDS ORDERED: ACETAMINOPHEN 325 MG TAB PO PRN (16:30)
[2020-10-27] MEDS ORDERED: DEXTROSE 50% SYRINGE 50 ML IV PRN (16:30)
[2020-10-27] MEDS ORDERED: FAMOTIDINE 20 MG/2 ML VIAL IV SCH (17:00)
[2020-10-27] MEDS ORDERED: MECLIZINE HCL 12.5 MG TAB PO PRN (17:15)
[2020-10-27] MEDS: DOCUSATE SODIUM 100 MG CAP PO SCH (17:35)
[2020-10-27] MEDS: LACTULOSE SYRUP 20 GM/30 ML UDC PO SCH (17:35)
[2020-10-27] MEDS: FUROSEMIDE 40 MG TAB PO SCH (17:35)
[2020-10-27 18:35] LABS: PHOSPHORUS 3.2 MG/DL (2.3-4.7)
[2020-10-27 18:43] LABS: CREATINE KINASE MB 1.7 ng/mL (0-5.0)
[2020-10-27 20:00] VITALS: BP 130/81
[2020-10-27] MEDS ORDERED: TEMAZEPAM 7.5 MG CAP PO PRN (21:00)
[2020-10-27] MEDS ORDERED: RIFAXIMIN 550 MG TABLET PO SCH (21:00)
[2020-10-27 21:50] VITALS: BP 130/81
[2020-10-27] MEDS: RIFAXIMIN 550 MG TABLET PO SCH (21:53)
[2020-10-28] VITALS: BP 112/52
[2020-10-28 00:48] LABS: CREATINE KINASE MB 1.3 ng/mL (0-5.0)
[2020-10-28 04:00] VITALS: BP 104/43
[2020-10-28 05:24] LABS: CLARITY,URINE CLEAR (CLEAR); COLOR,URINE YELLOW (YELLOW); LEUKOCYTE ESTERASE ,URINE NEGATIVE (NEGATIVE); NITRITE,URINE NEGATIVE (NEGATIVE); PROTEIN,URINE DIPSTICK NEGATIVE (NEGATIVE)
[2020-10-28 05:25] LABS: KETONES,URINE NEGATIVE (NEGATIVE); URINE UROBILINOGEN 0.2 mg/dL (0.2 - 1)
[2020-10-28 05:39] LABS: BASOPHILS # (AUTO) 0.1 (0.0-0.1); BASOPHILS % 1.5 % (0.0-1.0); EOSINOPHILS # (AUTO) 0.2 (0.0-0.4); EOSINOPHILS % 4.2 % (0.0-6.0); HEMATOCRIT 33.6 % (34.2-44.1); HEMOGLOBIN 10.7 g/dL (12.0-16.0); LYMPHOCYTES # (AUTO) 1.2 (1.0-3.2); LYMPHOCYTES % 30.9 % (18.0-39.1); MEAN CORPUSCULAR HEMOGLOBIN 31.6 pg (28-32); MEAN CORPUSCULAR HGB CONC 31.8 g/dL (31-35); MEAN CORPUSCULAR VOLUME 99.1 fL (81-99); MONOCYTES # (AUTO) 0.6 (0.2-0.8); NEUTROPHILS % 49.2 % (38.7-80.0); PLATELET COUNT 113 x10e3/uL (140-360); RED BLOOD COUNT 3.39 x10e6/uL (3.6-5.1); RED CELL DISTRIBUTION WIDTH 21.3 % (11.7-14.4)
[2020-10-28 05:42] LABS: BACTERIA,URINE RARE /HPF; EPITHELIAL CELLS,URINE FEW /LPF; RBC,URINE 0-5 /HPF (0-5); WBC,URINE (MAN) 0-5 /HPF (0-5)
[2020-10-28] MEDS: OCTREOTIDE ACETATE 0.05 MG/ML AMP SQ SCH ×3 (05:55→15:03)
[2020-10-28] MEDS ORDERED: LEVOTHYROXINE SODIUM 88 MCG TAB PO SCH ×2 (06:00→09:00)
[2020-10-28 06:08] LABS: ALBUMIN 2.6 g/dL (3.5-5.0); ALBUMIN/GLOBULIN RATIO 0.8 (0.8-2.0); ANION GAP 11.8 mmol/L (8-16); CALCIUM 8.2 mg/dL (8.4-10.2); CREATININE, SERUM 1.6 mg/dL (0.57-1.11); POTASSIUM 3.8 mmol/L (3.5-5.1)
[2020-10-28 06:19] LABS: PHOSPHORUS 3.2 MG/DL (2.3-4.7)
[2020-10-28 06:26] LABS: CREATINE KINASE MB 1.2 ng/mL (0-5.0)
[2020-10-28] MEDS ORDERED: MAGNESIUM SULFATE 2GM/50ML 50 ML IV ONE (06:45)
[2020-10-28 07:49] VITALS: BP 99/49
[2020-10-28 08:50] VITALS: BP 99/49
[2020-10-28] MEDS: DOCUSATE SODIUM 100 MG CAP PO SCH (08:56)
[2020-10-28] MEDS: LACTULOSE SYRUP 20 GM/30 ML UDC PO SCH (08:58)
[2020-10-28] MEDS: FUROSEMIDE 40 MG TAB PO SCH (08:58)
[2020-10-28] MEDS ORDERED: FERROUS SULFATE 325 MG TAB PO SCH ×2 (09:00)
[2020-10-28] MEDS ORDERED: PANTOPRAZOLE SOD 40 MG TABEC PO SCH ×2 (09:00)
[2020-10-28] MEDS ORDERED: ASPIRIN 81 MG CHEW TAB PO SCH ×2 (09:00)
[2020-10-28] MEDS ORDERED: FENOFIBRATE 145 MG TAB PO SCH ×2 (09:00)
[2020-10-28] MEDS ORDERED: METOPROLOL SUCCINATE 25 MG TAB XL PO SCH ×2 (09:00)
[2020-10-28] MEDS ORDERED: DOCUSATE SODIUM 100 MG CAP PO SCH ×2 (09:00)
[2020-10-28] MEDS ORDERED: FUROSEMIDE 40 MG TAB PO SCH (09:00)
[2020-10-28] MEDS ORDERED: LACTULOSE SYRUP 20 GM/30 ML UDC PO SCH (09:00)
[2020-10-28] MEDS ORDERED: POTASSIUM CHLORIDE 10MEQ EA PO SCH ×2 (09:00)
[2020-10-28] MEDS: RIFAXIMIN 550 MG TABLET PO SCH ×2 (09:05→15:09)
[2020-10-28 11:35] VITALS: BP 133/60
[2020-10-28] MEDS ORDERED: GLIPIZIDE5 MG PO ×2 (13:31→13:53)
[2020-10-28 15:41] VITALS: BP 120/59
[2020-10-28] MEDS ORDERED: ONDANSETRON HCL 4 MG ORAL DISINTEGRATING TAB PO PRN (16:00)
[2020-10-28] MEDS ORDERED: EPOETIN ALFA-EPBX 10,000 UNIT/ML VIAL SC SCH (17:15)
== END 2020-10-28 17:03 | disposition home or self-care (01) ==
LOC: ER 10:58 → ERHOLD 12:34 → MED/SURG 15:13
PROVIDERS: ADMIT Internal Medicine; ATTEND Internal Medicine
DX: E11.649 Type 2 diabetes mellitus with hypoglycemia without coma (principal); T38.3X5A Adverse effect of insulin and oral hypoglycemic [antidiabetic] drugs, initial encounter; E11.22 Type 2 diabetes mellitus with diabetic chronic kidney disease; I13.0 Hypertensive heart and chronic kidney disease with heart failure and stage 1 through stage 4 chronic kidney disease, or unspecified chronic kidney disease; N18.30 Chronic kidney disease, stage 3 unspecified; I50.32 Chronic diastolic (congestive) heart failure; K74.60 Unspecified cirrhosis of liver; I48.20 Chronic atrial fibrillation, unspecified; D50.9 Iron deficiency anemia, unspecified; E66.01 Morbid (severe) obesity due to excess calories; Z68.41 Body mass index [BMI] 40.0-44.9, adult; Z79.84 Long term (current) use of oral hypoglycemic drugs
CPT/HCPCS: 36415 ×2; 71045; 80053 ×2; 81001; 82140; 82550 ×2; 82553 ×2; 82948 ×2; 83735 ×2; 83880; 84100 ×2; 84484 ×2; 85025 ×2; 85610; 85730; 87086; 93005; 97139; 99284; G0378 ×2; J2354 ×2; J7070; S0164; U0002

== ENCOUNTER 2020-11-30 13:06 | Observation (INO) | payer MEDICARE ==
[~2020-11-30] VITALS: Ht 154.9 cm; Wt 82.6 kg
[~2020-11-30 13:06] MED LIST changes: +ASPIRIN81 MG PO; +GLIPIZIDE5 MG PO; +POTASSIUM CHLO10 ME1 PO
[2020-11-30 14:05] LABS: BASOPHILS % 1.1 % (0.0-1.0); EOSINOPHILS # (AUTO) 0.2 (0.0-0.4); EOSINOPHILS % 4.1 % (0.0-6.0); HEMATOCRIT 37.4 % (34.2-44.1); HEMOGLOBIN 12.1 g/dL (12.0-16.0); LYMPHOCYTES # (AUTO) 0.9 (1.0-3.2); LYMPHOCYTES % 24.9 % (18.0-39.1); MEAN CORPUSCULAR HEMOGLOBIN 32.8 pg (28-32); MEAN CORPUSCULAR HGB CONC 32.4 g/dL (31-35); MEAN CORPUSCULAR VOLUME 101.4 fL (81-99); MONOCYTES # (AUTO) 0.6 (0.2-0.8); MONOCYTES % 14.9 % (4.4-11.3); NEUTROPHILS % 54.7 % (38.7-80.0); PLATELET COUNT 94 x10e3/uL (140-360); RED BLOOD COUNT 3.69 x10e6/uL (3.6-5.1); RED CELL DISTRIBUTION WIDTH 17.9 % (11.7-14.4)
[2020-11-30 14:14] LABS: CLARITY,URINE CLEAR (CLEAR); COLOR,URINE YELLOW (YELLOW); KETONES,URINE NEGATIVE (NEGATIVE); LEUKOCYTE ESTERASE ,URINE NEGATIVE (NEGATIVE); NITRITE,URINE NEGATIVE (NEGATIVE); PROTEIN,URINE DIPSTICK NEGATIVE (NEGATIVE); URINE UROBILINOGEN 0.2 mg/dL (0.2 - 1)
[2020-11-30 14:18] LABS: ALBUMIN/GLOBULIN RATIO 0.8 (0.8-2.0); ANION GAP 10.6 mmol/L (8-16); CALCIUM 8.9 mg/dL (8.4-10.2); CREATININE, SERUM 1.69 mg/dL (0.57-1.11); POTASSIUM 3.6 mmol/L (3.5-5.1)
[2020-11-30 14:19] LABS: BACTERIA,URINE RARE /HPF; EPITHELIAL CELLS,URINE FEW /LPF; RBC,URINE 0-5 /HPF (0-5); WBC,URINE (MAN) 0-5 /HPF (0-5)
[2020-11-30 14:25] LABS: CREATINE KINASE MB 1.5 ng/mL (0-5.0)
[2020-11-30 20:00] VITALS: BP 127/63
[2020-11-30 20:15] VITALS: BP 127/63
[2020-11-30 21:00] VITALS: BP 127/63
[2020-11-30] MEDS ORDERED: TEMAZEPAM 7.5 MG CAP PO PRN (22:15)
[2020-11-30] MEDS ORDERED: ONDANSETRON HCL INJ 2MG/ML 2ML 2 MG/ML VIAL IV PRN (22:15)
[2020-11-30] MEDS ORDERED: POLYETHYLENE GLYCOL 3350 17 GM PACK PO PRN (22:15)
[2020-11-30] MEDS ORDERED: HYDRALAZINE HCL 20 MG/ML VIAL IV PRN (22:15)
[2020-11-30] MEDS ORDERED: ACETAMINOPHEN 325 MG TAB PO PRN (22:15)
[2020-12-01] VITALS: BP 108/44
[2020-12-01 04:00] VITALS: BP 115/49
[2020-12-01 05:06] LABS: BASOPHILS % 1.2 % (0.0-1.0); EOSINOPHILS # (AUTO) 0.2 (0.0-0.4); EOSINOPHILS % 4.7 % (0.0-6.0); HEMOGLOBIN 11.4 g/dL (12.0-16.0); LYMPHOCYTES # (AUTO) 1.2 (1.0-3.2); LYMPHOCYTES % 35.5 % (18.0-39.1); MEAN CORPUSCULAR HEMOGLOBIN 31.8 pg (28-32); MEAN CORPUSCULAR HGB CONC 31.7 g/dL (31-35); MEAN CORPUSCULAR VOLUME 100.3 fL (81-99); MONOCYTES # (AUTO) 0.6 (0.2-0.8); MONOCYTES % 17.7 % (4.4-11.3); NEUTROPHILS # (AUTO) 1.4 (2.1-6.9); NEUTROPHILS % 40.6 % (38.7-80.0); PLATELET COUNT 90 x10e3/uL (140-360); RED BLOOD COUNT 3.59 x10e6/uL (3.6-5.1); RED CELL DISTRIBUTION WIDTH 17.6 % (11.7-14.4)
[2020-12-01 05:20] LABS: ANION GAP 12.5 mmol/L (8-16); CALCIUM 8.9 mg/dL (8.4-10.2); CREATININE, SERUM 1.55 mg/dL (0.57-1.11); POTASSIUM 3.5 mmol/L (3.5-5.1)
[2020-12-01 06:09] LABS: % IRON SATURATION 68 % (15-50); IRON 197 ug/dL (50-170); TOTAL IRON BINDING CAPACITY 291 ug/dL (261-478); TRANSFERRIN 208 mg/dL (180-382)
[2020-12-01] MEDS ORDERED: PANTOPRAZOLE SOD 40 MG TABEC PO SCH (07:30)
[2020-12-01 08:00] VITALS: BP 111/55
[2020-12-01 08:58] VITALS: BP 111/55
[2020-12-01] MEDS ORDERED: DOCUSATE SODIUM 100 MG CAP PO SCH (09:00)
[2020-12-01] MEDS ORDERED: MECLIZINE HCL12.5 MG PO (11:20)
[2020-12-01] MEDS ORDERED: DEXTROSE 5%/0.45% SOD CHL 1,000 ML IV ONE (11:30)
[2020-12-01] MEDS ORDERED: MECLIZINE HCL 12.5 MG TAB PO PRN (11:30)
[2020-12-01] MEDS ORDERED: FUROSEMIDE INJ 10 MG/ML 4 ML VIAL IV SCH (11:30)
[2020-12-01 12:00] VITALS: BP 114/53
[2020-12-01] MEDS ORDERED: POTASSIUM CHLORIDE 20 MEQ TAB CR PO ONE (12:30)
[2020-12-01] MEDS ORDERED: RIFAXIMIN 550 MG TABLET PO SCH (15:00)
[2020-12-01] MEDS ORDERED: LACTULOSE SYRUP 20 GM/30 ML UDC PO SCH (17:00)
[2020-12-01] MEDS ORDERED: FUROSEMIDE 40 MG TAB PO SCH (17:00)
[2020-12-02] MEDS ORDERED: LEVOTHYROXINE SODIUM 88 MCG TAB PO SCH (06:30)
[2020-12-02] MEDS ORDERED: FENOFIBRATE 145 MG TAB PO SCH (09:00)
[2020-12-02] MEDS ORDERED: POTASSIUM CHLORIDE 10MEQ EA PO SCH (09:00)
[2020-12-02] MEDS ORDERED: ASPIRIN 81 MG CHEW TAB PO SCH (09:00)
[2020-12-02] MEDS ORDERED: GLIPIZIDE 5 MG TAB PO SCH (09:00)
[2020-12-02] MEDS ORDERED: PANTOPRAZOLE SOD 40 MG TABEC PO SCH (09:00)
[2020-12-02] MEDS ORDERED: METOPROLOL SUCCINATE 25 MG TAB XL PO SCH (09:00)
[2020-12-02] MEDS ORDERED: FERROUS SULFATE 325 MG TAB PO SCH (09:00)
[2020-12-02] MEDS ORDERED: DOCUSATE SODIUM 100 MG CAP PO SCH (09:00)
[2020-12-02] MEDS ORDERED: EPOETIN ALFA-EPBX 10,000 UNIT/ML VIAL SC SCH (11:30)
== END 2020-12-01 17:00 | disposition home or self-care (01) ==
LOC: ER 13:27 → ERHOLD 14:35 → MED/SURG2 20:15
PROVIDERS: ADMIT Internal Medicine; ATTEND Internal Medicine
DX: E87.0 Hyperosmolality and hypernatremia (principal); E11.22 Type 2 diabetes mellitus with diabetic chronic kidney disease; K74.60 Unspecified cirrhosis of liver; D69.59 Other secondary thrombocytopenia; E03.9 Hypothyroidism, unspecified; I48.20 Chronic atrial fibrillation, unspecified; Z79.01 Long term (current) use of anticoagulants; I13.0 Hypertensive heart and chronic kidney disease with heart failure and stage 1 through stage 4 chronic kidney disease, or unspecified chronic kidney disease; I50.32 Chronic diastolic (congestive) heart failure; E78.5 Hyperlipidemia, unspecified; Z95.0 Presence of cardiac pacemaker; H91.92 Unspecified hearing loss, left ear; N32.81 Overactive bladder; N39.0 Urinary tract infection, site not specified; Z85.42 Personal history of malignant neoplasm of other parts of uterus; N18.32 Chronic kidney disease, stage 3b; H40.9 Unspecified glaucoma; Z20.822 Contact with and (suspected) exposure to COVID-19
CPT/HCPCS: 36415 ×2; 70450; 71045; 80048; 80053; 81001; 82140; 82550; 82553; 82607; 82746; 82948 ×2; 83540; 83880 ×2; 84443; 84466; 84484; 85025 ×2; 85045; 93306; 93880; 99284; G0378 ×2; J1940; S0164; U0002

== ENCOUNTER 2020-12-21 11:22 | Emergency (ER) | payer MEDICARE ==
[~2020-12-21] VITALS: Ht 154.9 cm; Wt 82.6 kg
[2020-12-21] MEDS ORDERED: CEFTRIAXONE SOD 1 GM/50 ML BAG IV SCH (11:30)
[2020-12-21] MEDS ORDERED: AZITHROMYCIN 500MG/NS 250 ML 250 ML IV SCH (11:30)
[2020-12-21 11:42] LABS: BASOPHILS % 0.3 % (0.0-1.0); EOSINOPHILS # (AUTO) 0.1 (0.0-0.4); EOSINOPHILS % 1.8 % (0.0-6.0); HEMATOCRIT 37.1 % (34.2-44.1); HEMOGLOBIN 11.9 g/dL (12.0-16.0); LYMPHOCYTES # (AUTO) 0.7 (1.0-3.2); LYMPHOCYTES % 17.9 % (18.0-39.1); MEAN CORPUSCULAR HEMOGLOBIN 32.4 pg (28-32); MEAN CORPUSCULAR HGB CONC 32.1 g/dL (31-35); MEAN CORPUSCULAR VOLUME 101.1 fL (81-99); MONOCYTES # (AUTO) 0.4 (0.2-0.8); MONOCYTES % 9.9 % (4.4-11.3); NEUTROPHILS # (AUTO) 2.7 (2.1-6.9); NEUTROPHILS % 69.3 % (38.7-80.0); PLATELET COUNT 101 x10e3/uL (140-360); RED BLOOD COUNT 3.67 x10e6/uL (3.6-5.1); RED CELL DISTRIBUTION WIDTH 16.8 % (11.7-14.4)
[2020-12-21] MEDS ORDERED: ACETAMINOPHEN 325 MG TAB PO NR (11:45)
[2020-12-21 11:49] LABS: INR 1.29
[2020-12-21 11:50] LABS: PARTIAL THROMBOPLASTIN TIME 46.4 seconds (23.8-35.5)
[2020-12-21] MEDS ORDERED: DEXAMETHASONE SOD PHOS 10 MG/1 ML VIAL IV SCH (12:00)
[2020-12-21 12:01] LABS: ALBUMIN 2.1 g/dL (3.5-5.0); ALBUMIN/GLOBULIN RATIO 0.5 (0.8-2.0); ANION GAP 15.3 mmol/L (8-16); CALCIUM 8.1 mg/dL (8.4-10.2); CREATININE, SERUM 1.46 mg/dL (0.57-1.11); POTASSIUM 4.3 mmol/L (3.5-5.1)
[2020-12-21 12:07] LABS: CREATINE KINASE MB 0.8 ng/mL (0-5.0)
[2020-12-21] MEDS ORDERED: CEFTRIAXONE SOD 1 GM in SODIUM CHLORIDE 0.9% 50ML 50 ML IV SCH (12:15)
[2020-12-21 13:28] VITALS: BP 116/64
[2020-12-27] MEDS ORDERED: DEXAMETHASONE SOD PHOS 10 MG/1 ML VIAL IV SCH (09:00)
== END 2020-12-21 14:33 | disposition other institution (70) ==
LOC: ER 11:27
DX: U07.1 COVID-19 (principal); J18.9 Pneumonia, unspecified organism; I50.9 Heart failure, unspecified; I12.9 Hypertensive chronic kidney disease with stage 1 through stage 4 chronic kidney disease, or unspecified chronic kidney disease; E11.22 Type 2 diabetes mellitus with diabetic chronic kidney disease; N18.9 Chronic kidney disease, unspecified; I48.91 Unspecified atrial fibrillation; E78.5 Hyperlipidemia, unspecified; Z85.42 Personal history of malignant neoplasm of other parts of uterus; Z95.810 Presence of automatic (implantable) cardiac defibrillator; E66.9 Obesity, unspecified; R94.31 Abnormal electrocardiogram [ECG] [EKG]
CPT/HCPCS: 36415; 71045; 80053; 82550; 82553; 83735; 83880; 84484; 85025; 85610; 85730; 87040; 93005; 99285; J0456; J0696; J1100; U0002